=== PATIENT | female | born 1940 | race Caucasian/White ===

== ENCOUNTER 2022-04-27 12:17 | Emergency (ER) | payer MEDICARE, SELFPAY ==
[2022-04-27 12:18] VITALS: BP 118/88; PULSE 86; RESP 16; TEMP 36.4; O2SAT 97; BMI 20.5
[2022-04-27 12:52] VITALS: O2SAT 94
--- NOTE | 2022-04-27 13:26 | CT_ITS ---
STUDY: CT BRAIN WITHOUT CONTRAST REASON FOR EXAM: Female, 82 years old. Recent head injury due to a fall. Dementia. RADIATION DOSAGE (If Supplied By Facility): CTDIvol = ( 44.99 ) mGy, DLP = ( 812.98 ) mGycm TECHNIQUE: Transaxial CT imaging of the brain was performed without administration of intravenous contrast material. Individualized dose optimization techniques were used for this CT. COMPARISON: Comparison is made with prior examination dated 09/19/2013. FINDINGS: Normal soft tissue structures. Normal calvarium. There is mild cerebral atrophy with widening of the extra-axial spaces and ventricular dilatation. There are areas of decreased attenuation within the white matter tracts of the supratentorial brain, consistent with microvascular disease changes. There is evidence of a 6.7 mm lacuna in the right basal ganglion. Normal brainstem. Normal cerebellum. There is no intracranial hemorrhage. There are no findings of an acute ischemic infarction. Atherosclerotic calcification of the vertebral arteries and cavernous portions of the internal carotid arteries bilaterally. Normal visualized paranasal sinuses. CT/Brain/Head without Contrast IMPRESSION: Chronic involutional changes of the brain. Electronically Signed: Gael Gomez MD at 14:47 EST ,
--- NOTE | 2022-04-27 13:26 | CT_ITS ---
STUDY: CT CERVICAL SPINE WITHOUT CONTRAST REASON FOR EXAM: Female, 82 years old. Trauma, neck pain RADIATION DOSAGE (If Supplied By Facility): CTDIvol = ( 29 ) mGy, DLP = ( 1038.34 ) mGycm TECHNIQUE: High resolution transaxial imaging was performed without contrast material. Sagittal and coronal images were reconstructed. Individualized dose optimization techniques were used for this CT. COMPARISON: None FINDINGS: Normal craniovertebral junction. There are degenerative changes of the anterior atlantoaxial articulation. Normal odontoid process. Normal cervical lordosis. Normal vertebral bodies and posterior osseous elements. C2-3: Minimal anterior listhesis of C2 on C3 most likely secondary to the facet joint osteoarthritis and hypertrophy more prominent on the left side. C3-4: Mild degree of disc space narrowing. Facet joint osteoarthritis and hypertrophy more prominent on the left side. No significant stenosis is seen. C4-5: Moderate degree of disc space narrowing. Facet joint osteoarthritis and hypertrophy more prominent on the left side. Uncovertebral arthrosis. Moderate degree of bilateral neural foraminal stenosis. C5-6: Marked degree of disc space narrowing. Facet joint osteoarthritis. Uncovertebral arthrosis. Bilateral neural foraminal stenosis worse on the left side. C6-7: Marked degree of disc space narrowing. Spondylosis. Uncovertebral arthrosis. Mild degree of bilateral neural foraminal stenosis. C7-T1: Normal endplates. Normal disc height and morphology. Normal central canal and intervertebral neuroforamina. Atherosclerotic calcific plaques at the carotid bifurcations bilaterally. CT/Spine Cervical without Contras IMPRESSION: Multilevel degenerative changes, as described above. Electronically Signed: Gael Gomez MD at 14:50 EST ,
[2022-04-27] MEDS: Lidocaine 5% Patch 1 PATCH TOPICAL (13:36)
--- NOTE | 2022-04-27 14:38 | RAD_ITS ---
STUDY: X-RAY - UNILATERAL RIBS ( LEFT ) WITH CHEST REASON FOR EXAM: Female, 82 years old. Pain, fall TECHNIQUE - RIBS: 3 view(s) of the ribs. TECHNIQUE - CHEST: Single PA view of the chest. COMPARISON: Comparison is made with prior chest radiograph dated 09/05/2016. FINDINGS - RIBS: Normal visualized ribs without a demonstrated fracture. FINDINGS - CHEST: Hyperinflation. Scattered calcified granulomas. No acute infiltrate is seen. There is no demonstrated pleural abnormality. Normal size heart. Normal mediastinum and edwin. Normal visualized pulmonary arteries. There is atherosclerotic calcification of the aortic arch with tortuosity. There are diffuse degenerative changes of the visualized thoracic spine. Prior right rotator cuff surgery. There is no demonstrated abnormality of the visualized soft tissue structures of the upper abdomen. RAD/Ribs Uni Min 3V w/PA Chest IMPRESSION: RIBS: Normal x-ray examination of the ribs. CHEST: Hyperinflation. No focal abnormality is seen. Electronically Signed: Gael Gomez MD at 15:00 EST ,
--- NOTE | 2022-04-27 15:30 | EDS_ITS ---
HPI HPI - Fall History of Present Illness Chief Complaint: Fall Informant: patient and spouse/S.O. Limited: dementia Narrative Narrative: Patient is an 82-year-old female with history of dementia presenting with per sistent left anterior chest wall pain. Apparently of 4 days ago patient [place]. She landed on her front and laid there for approximately 30 minutes. Her found her and helped her up. Since then she has been complaining of chest wall pain. Patient had been taping her chest which has been helping however this morning she was not wearing the tape and seemed to have a lot of pain with inspiration. She states it is on her left side and feels deep to her breast. It sometimes radiates around to her left side of her back. Patient fell she states she did hit her head but she had no loss of consciousness. She is not on any oral anticoagulation. She does complain of some intermittent tingling of her bilateral hands but notes that she has a history of severe bilateral carpal tunnel. Patient takes tramadol 3 times a day as well as Tylenol twice a day at baseline. Patient is allergic to most of her opioids due to intolerances. She is also complaining of some mild bilateral neck pain. No other complaints or concerns at this time. feels that she is at her baseline and still feels that she is safe at home. He does not think she requires placement at this time. She is not had any progression or change in her behavior. [facility] Home Medications enalapril maleate 5 mg tablet 5 mg PO DAILY 09/19/13 [History Last Taken Unknown] metformin 500 mg tablet 500 mg PO TIDCM 09/19/13 [History Last Taken Unknown] niacin 500 mg tablet,extended release 24 hr 1,000 mg PO DAILY 09/19/13 [History Last Taken Unknown] tramadol 50 mg tablet 50 mg PO Q6H PRN PRN Pain 09/19/13 [History Last Taken Unknown] amlodipine 5 mg tablet 5 mg PO DAILY 09/05/16 [History Last Taken Unknown] aspirin 325 mg tablet 325 mg PO DAILY@0800 09/05/16 [History Last Taken Unknown] sitagliptin phosphate 100 mg tablet (Januvia) 100 mg PO DAILY 09/05/16 [History Last Taken Unknown] Allergy/AdvReac Type Severity Reaction Status Date / Time celecoxib [From Celebrex] AdvReac Nausea Verified 04/27/22 12:23 Opioids - Morphine Analogues AdvReac Other Verified 04/27/22 12:23 rofecoxib [From Vioxx] AdvReac Nausea Verified 04/27/22 12:23 [id number]-[id number] Reductase AdvReac Pain in Verified 04/27/22 12:23 Inhibitor joints [Gegryof-Nmj-Icz Reductase Inhibitor] Social History Smoking Status: Never smoker ROS ROS ED Constitutional Constitutional ED: Denies chills or fever(s) Eyes Eyes: Denies change in vision ENT ENT ED: Denies rhinorrhea Cardiovascular Cardiovascular: Reports chest pain Respiratory/Chest Respiratory/Chest: Denies cough or dyspnea Gastrointestinal Gastrointestinal: Denies nausea or vomiting Musculoskeletal Musculoskeletal: Reports myalgias and neck pain Integumentary Denies Abrasions or rash Neurologic Neurologic: Denies headache(s) or weakness Hematologic/Lymphatic Hematologic/Lymphatic: Denies easy bleeding or easy bruising EXAM Physical Exam Const Vital Signs: 04/27/22 12:18 04/27/22 12:52 04/27/22 15:42 Temperature 97.5 F L Temperature Source Temporal Pulse Rate 86 Respiratory Rate 16 16 Respiratory Effort Normal Non-Labored Respiratory Depth Normal Respiratory Pattern Normal Blood Pressure 118/88 H Blood Pressure Mean 98 Pulse Ox 97 94 Oxygen Delivery Method Room Air Room Air Positive well nourished and well developed General Appearance ED: well developed and NAD HEENT Reports normocephalic and TM's normal bilaterally atraumatic Eyes PERRL and EOMs intact bilaterally Neck full ROM Neck Narrative: No midline tenderness. No step-off sign. No significant tenderness of the paraspinal region. Chest Wall inspection of chest normal Chest Narrative: No chest wall crepitus. Patient does have tenderness palpation of the left anterior chest wall as well as the left sternal costal junction Resp normal respiratory effort and clear to auscultation bilaterally Resp Narrative: Increased pain with deep inspiration Auscultation: Negative for diminished lung sounds Cardio regular rate and regular rhythm GI non-tender and non-distended Back/Spine Cervical Spine: Negative for cervical spine tenderness Thoracic Spine / Upper Back: Negative for ROM limited or pain with ROM Lumbar Spine / Lower Back: Negative for lumbar spinal tenderness Neuro oriented x3, CN's II-XII intact bilaterally, moves all extremities, no focal motor deficits and no sensory deficits noted Neuro Narrative: Patient is at her baseline orientation Sensorium / Orientation: alert Psych mental status grossly normal and thought process normal Skin Skin Narrative: Approximately 3 cm x 5 cm area of healing ecchymosis to the left lateral lower back just above the buttock. No associated hematoma appreciated. Rashes: no rashes MDM MDM MDM Narrative Medical decision making narrative: Patient is evaluated for chest wall pain. Her vital signs are normal. Pain is highly reproducible and associated with an injury. I do not think this is a cardiac chest pain. Patient and spouse state they were only here because they are worried about a rib fracture. Because she did hit her head, has advanced age and is complained of neck pain will obtain a head CT and C-spine as well as a rib series. These are negative for any acute process. Rib series specifically does not show any rib fracture, pneumothorax or associated pulmonary contusion. This is interpreted independently by myself as well as radiology. Patient is given a Lidoderm patch in the ER and does seem more comfortable. Patient is already on tramadol and Tylenol at home and I do not think she requires oral pain medications. In addition she has a history of intolerance to Celebrex so refrain from starting her on NSAID therapy. Encouraged them to use Lidoderm patches for her pain. Counseled on the risk of secondary pneumonia associated with rib contusions and patient is given an incentive spirometer as well as instructions on how to use it. Patient and her verbalized agreement understanding with this plan. This time feels that patient does not require more help that he is able to give at home and I do not think a social work consult is indicated. Patient and encouraged to follow-up with primary care doctor. Given return precautions. Radiography Diagnostic Testing: Clinical Impression(s) from Imaging Studies Brain CT 04/27/22 13:26 IMPRESSION: Chronic involutional changes of the brain. Electronically Signed: Gael Gomez MD at 14:47 EST , Cervical Spine CT 04/27/22 13:26 IMPRESSION: Multilevel degenerative changes, as described above. Electronically Signed: Gael Gomez MD at 14:50 EST , Ribs w/Chest X-Ray 04/27/22 14:38 IMPRESSION: RIBS: Normal x-ray examination of the ribs. CHEST: Hyperinflation. No focal abnormality is seen. Electronically Signed: Gael Gomez MD at 15:00 EST , Discharge Plan Triage Chief Complaint: Fall ED Provider: Chani Elkins Dx/Rx/DC Orders Clinical Impression: Acute chest wall pain, Fall, Contusion of rib on left side Instructions: Using an Incentive Spirometer, ED Chest Wall Contusion, ED Bruise, Rib Prescriptions: No Action metformin 500 MG tablet 500 mg PO TIDCM Label Comments: diabetes enalapril maleate 5 MG tablet 5 mg PO DAILY Label Comments: Blood Pressure, Heart niacin 500 MG Tab.Er.24h 1,000 mg PO DAILY Label Comments: Vitamin tramadol 50 MG tablet 50 mg PO Q6H PRN PRN (Reason: Pain) Label Comments: pain medication aspirin 325 MG tablet 325 mg PO DAILY@0800 amlodipine 5 MG tablet 5 mg PO DAILY sitagliptin phosphate [Januvia] 100 MG tablet 100 mg PO DAILY Primary Care Provider: Raeann Parsons Referrals: Raeann Parsons MD [Primary Care Provider] - Activity Restrictions/Additional Instructions: Use [id number] Lidoderm patches (4%) daily as well as incentive spirometer every hour while awake to help prevent a secondary pneumonia. Disposition Disposition: Home, Self Care Discharge Date/Time: 04/27/22 15:43
[2022-04-27 15:42] VITALS: RESP 16
== END 2022-04-27 15:43 | disposition home or self-care (01) ==
PROVIDERS: Emergency Provider Emergency Medicine; PCP Internal Medicine; Visit Provider Emergency Medicine
DX: S20.212A Contusion of left front wall of thorax, initial encounter (principal); F03.90 Unspecified dementia, unspecified severity, without behavioral disturbance, psychotic disturbance, mood disturbance, and anxiety; R07.89 Other chest pain; W19.XXXA Unspecified fall, initial encounter
CPT/HCPCS: 70450; 71101; 72125; 99282

== ENCOUNTER 2023-10-16 01:00 | Emergency (ER) | payer MEDICARE, SELFPAY ==
[2023-10-16 01:00] VITALS: BP 181/73; PULSE 81; RESP 18; TEMP 36.7; O2SAT 99; BMI 22.1
--- NOTE | 2023-10-16 01:20 | CT_ITS ---
STUDY: CT CERVICAL SPINE WITHOUT CONTRAST REASON FOR EXAM: Female, 83 years old patient with neck injury after fall. RADIATION DOSAGE (If Supplied By Facility): CTDIvol = ( 12.46 ) mGy, DLP = ( 265.31 ) mGycm TECHNIQUE: High resolution transaxial imaging was performed without contrast material. Sagittal and coronal images were reconstructed. Individualized dose optimization techniques were used for this CT. COMPARISON: CT of cervical spine dated April 27, 2022. FINDINGS: Normal craniovertebral junction. There are degenerative changes of the anterior atlantoaxial articulation. Normal odontoid process. Normal cervical lordosis. The cervical and upper thoracic vertebral bodies have normal height and alignment. C2-3: Normal endplates. Normal disc height and morphology. Normal central canal. There is mild narrowing of the left intervertebral neuroforamen. There is moderately severe degenerative arthropathy of the left-sided facet joint C3-4: There is narrowing of the disk space. There is mild disk bulge and osteophyte complex. There is mild degenerative arthropathy of the facet joints. Bilateral neuroforamina are moderately narrowed. There is uncovertebral and facet joint hypertrophy. There is no appreciable acquired central canal stenosis. C4-5: There is narrowing of the disk space. There is mild disk bulge and osteophyte complex. There is mild degenerative arthropathy of the facet joints. Bilateral neuroforamina are severely narrowed with uncovertebral and facet joint hypertrophy. There is no appreciable acquired central canal stenosis. C5-6: There is narrowing of the disk space. There is mild disk bulge and osteophyte complex. There is degenerative arthropathy of the uncovertebral joints. Bilateral neuroforamina are moderately narrowed. There is no appreciable acquired central canal stenosis. C6-7: There is narrowing of the disk space. There is mild disk bulge and osteophyte complex. There is degenerative arthropathy of the uncovertebral joints. Bilateral neuroforamina are moderately narrowed. There is no appreciable acquired central canal stenosis. C7-T1: Normal endplates. Normal disc height and morphology. Normal central canal and intervertebral neuroforamina. The thyroid appears atrophic. There is atherosclerotic calcification of the carotid bulbs. Lung apices appear to be clear. CT/Spine Cervical without Contras IMPRESSION: 1. No CT evidence of acute compression or displaced fracture. 2. Moderately severe multilevel degenerative changes of cervical spine as described. Electronically Signed: Nadia Blair MD at 3:06 EDT ,
--- NOTE | 2023-10-16 01:20 | RAD_ITS ---
STUDY: X-RAY - LEFT RADIUS AND ULNA REASON FOR EXAM: Female, 83 years old patient with forearm pain. TECHNIQUE: AP and lateral view(s) of the forearm. COMPARISON: None. FINDINGS: There is no demonstrated soft tissue swelling. There is diffuse demineralization of the osseous structures. Normal visualized radius. Normal visualized ulna. There is no demonstrated acute fracture. There is arthrosis of the visualized elbow articulations. RAD/Forearm 2 Views IMPRESSION: No definite evidence for acute fracture or dislocation. Electronically Signed: Nadia Blair MD at 3:07 EDT ,
--- NOTE | 2023-10-16 01:20 | CT_ITS ---
STUDY: CT BRAIN WITHOUT CONTRAST REASON FOR EXAM: Female, 83 years old patient with closed head injury after fall. RADIATION DOSAGE (If Supplied By Facility): CTDIvol = ( 44.99 ) mGy, DLP = ( 863.60 ) mGycm TECHNIQUE: Transaxial CT imaging of the brain was performed without administration of intravenous contrast material. Multiplanar reformations are submitted for interpretation. Individualized dose optimization techniques were used for this CT. COMPARISON: CT of the head dated April 27, 2022. FINDINGS: Normal soft tissue structures. There are bilateral ocular lenticular implants. Normal calvarium. There is moderate cerebral atrophy with widening of the extra-axial spaces and ventricular dilatation. There are areas of decreased attenuation within the white matter tracts of the supratentorial brain, consistent with microvascular disease changes. Normal basal ganglia and thalami. Normal brainstem. There is mild cerebellar atrophy. There is no intracranial hemorrhage. Appears be a small area of encephalomalacia within the left parietal occipital lobe possibly secondary to old infarcts. There is atherosclerotic calcification of the intracranial arteries. Normal visualized paranasal sinuses. CT/Brain/Head without Contrast IMPRESSION: 1. Chronic involutional changes of the brain. 2. No CT evidence of acute intracranial hemorrhage. Electronically Signed: Nadia Blair MD at 2:54 EDT ,
--- NOTE | 2023-10-16 01:20 | RAD_ITS ---
STUDY: X-RAY - UNILATERAL RIBS ( LEFT ) WITH CHEST REASON FOR EXAM: Female, 83 years old patient with chest pain. TECHNIQUE - RIBS: 4 view(s) of the ribs. TECHNIQUE - CHEST: Single PA view of the chest. COMPARISON: Radiographs of the chest and ribs dated April 27, 2022. FINDINGS - RIBS: There is demineralization of the osseous structures which diminishes the diagnostic sensitivity of this examination. There appear to be acute displaced fractures of the lateral left seventh and eighth ribs. FINDINGS - CHEST: There are prominent bronchovascular markings in both lungs. The lungs are expanded. There is no demonstrated pleural abnormality. Normal size heart. Normal mediastinum and edwin. Normal visualized pulmonary arteries. There is atherosclerotic calcification of the aortic arch with tortuosity. There is demineralization of the osseous structures. There are postoperative changes in the right shoulder. There is no demonstrated abnormality of the visualized soft tissue structures of the upper abdomen. RAD/Ribs Uni Min 3V w/PA Chest IMPRESSION: RIBS: Osteopenia with acute displaced rib fractures, as described. CHEST: No radiographic evidence of acute cardiopulmonary disease. Electronically Signed: Nadia Blair MD at 3:12 EDT ,
--- NOTE | 2023-10-16 01:20 | RAD_ITS ---
STUDY: X-RAY - THORACIC SPINE REASON FOR EXAM: Female, 83 years old patient with back pain. TECHNIQUE: 3 view(s) of the thoracic spine were obtained. COMPARISON: Prior comparison studies are not available for review at this time. FINDINGS: There is an increase in the normal thoracic kyphosis. There is no substantial scoliosis. There is demineralization of the thoracic spine with endplate spondylosis. There is multilevel disc space narrowing of the thoracic spine. There is extensive atherosclerotic calcification of the thoracic and abdominal aorta. RAD/Thoracic Spine 3 Views IMPRESSION: 1. No definite evidence for acute compression fracture. 2. Multilevel degenerative changes, as described. Electronically Signed: Nadia Blair MD at 3:14 EDT ,
--- NOTE | 2023-10-16 01:20 | RAD_ITS ---
STUDY: X-RAY - LEFT HUMERUS REASON FOR EXAM: Female, 83 years old patient with left-sided arm pain. TECHNIQUE: 2 view(s) of the humerus. COMPARISON: None. FINDINGS: There is diffuse demineralization of the humerus. There is no demonstrated fracture or osseous destructive process. There is no demonstrated soft tissue abnormality. RAD/Humerus min 2 Views IMPRESSION: No obvious acute fracture or dislocation. Electronically Signed: Nadia Blair MD at 2:49 EDT ,
--- NOTE | 2023-10-16 01:20 | RAD_ITS ---
STUDY: X-RAY - PELVIS REASON FOR EXAM: Female, 83 years old patient with pelvic injury after fall. TECHNIQUE: One view of the pelvis was obtained. COMPARISON: None. FINDINGS: There is a non-specific bowel gas pattern. Normal visualized soft tissue structures. The sacrum and iliac wings are obscured by bowel gas and/or stool. Normal visualized bilateral superior and inferior pubic rami. Normal pubic symphysis. Normal ischial tuberosities. Normal visualized right femoral head. Normal right acetabulum. Normal right hip joint. Normal visualized left femoral head. Normal left acetabulum. Normal left hip joint. RAD/Pelvis 1 or 2 Views IMPRESSION: No obvious acute displaced fracture or dislocation. Electronically Signed: Nadia Blair MD at 2:47 EDT ,
[2023-10-16] MEDS: Ondansetron 4 MG/2 ML Vial IV (01:40)
[2023-10-16] MEDS: HYDROmorphone 0.5 MG/0.5 ML SYRINGE IV ×2 (01:40→03:02)
[2023-10-16 03:00] VITALS: BP 145/79; PULSE 98; RESP 18; O2SAT 98
--- NOTE | 2023-10-16 03:33 | EDS_ITS ---
HPI History of Present Illness Chief Complaint: Fall Informant: patient and spouse/S.O. Narrative Narrative: Patient is a 83-year-old female with past medical history of hypertension and type 2 diabetes as well as chronic pain who takes Ultram daily. 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 She states that today she fell once around 3 in the afternoon and also once around evening time. She states both times the fall was mechanical in nature and she denies palpitations chest pain lightheadedness or dizziness prior to the event. She denies striking her head any loss consciousness or history of bleeding disor ashley. She states that this evening she cannot sleep secondary to the pain despite taking her home medication and with concern for underlying trauma from the fall she comes in for evaluation [facility] Medical History (Updated 10/16/23 @ 06:[address] Barry Garcia, DO) Heart murmur Hypercholesteremia Tuberculosis Home Medications ?Medication ?Instructions ?Recorded ?Last Taken ?Type enalapril maleate 5 mg tablet 5 mg PO DAILY 09/19/13 Unknown History metformin 500 mg tablet 500 mg PO TIDCM 09/19/13 Unknown History niacin 500 mg tablet,extended 1,000 mg PO DAILY 09/19/13 Unknown History release 24 hr tramadol 50 mg tablet 50 mg PO Q6H PRN PRN Pain 09/19/13 Unknown History amlodipine 5 mg tablet 5 mg PO DAILY 09/05/16 Unknown History aspirin 325 mg tablet 325 mg PO DAILY@0800 09/05/16 Unknown History sitagliptin phosphate 100 mg 100 mg PO DAILY 09/05/16 Unknown History tablet (Januvia) lidocaine 4 % topical patch 1 patch topical BID PRN pain #30 ea 10/16/23 Unknown Rx (Lidocaine Pain Relief) ondansetron 4 mg disintegrating 4 mg PO TID PRN nausea and 10/16/23 Unknown Rx tablet vomiting #21 tabs oxycodone-acetaminophen 5 mg-325 1 tab PO Q6H PRN pain 3 days #12 10/16/23 Unknown Rx mg tablet (Percocet) tabs Allergy/AdvReac Type Severity Reaction Status Date / Time celecoxib (From Celebrex) AdvReac Nausea Verified 10/16/23 01:07 Opioids - Morphine Analogues AdvReac Nausea Verified 10/16/23 01:07 rofecoxib (From Vioxx) AdvReac Nausea Verified 10/16/23 01:07 Flpilgn-ZCE-QaT Reductase AdvReac Pain in Verified 10/16/23 01:07 Inhibitor (Msrmdvn-Ubg-Pap joints Reductase Inhibitor) Surgical History (Updated 10/16/23 @ 01:10 by Lulú Horta) History of cholecystectomy History of appendectomy Social History Smoking Status: Never smoker ROS ROS ED Constitutional Constitutional ED: Denies chills or fever(s) Eyes Eyes: Denies change in vision ENT ENT ED: Denies sore throat Cardiovascular Cardiovascular: Denies chest pain, palpitations or racing heartbeat Respiratory/Chest Respiratory/Chest: Denies cough or dyspnea Gastrointestinal Gastrointestinal: Denies abdominal pain, diarrhea, nausea or vomiting Genitourinary Genitourinary ED: Denies dysuria Musculoskeletal Musculoskeletal: Reports back pain and other Details: Positive left shoulder left elbow left wrist pain as well as left chest wall pain ; Denies neck pain Integumentary Denies Abrasions or rash Neurologic Neurologic: Denies headache(s), paresthesias or weakness Hematologic/Lymphatic Hematologic/Lymphatic: Denies easy bleeding or easy bruising EXAM Physical Exam Const Vital Signs: 10/16/23 01:00 10/16/23 01:11 10/16/23 03:00 Temperature 98.1 F Temperature Source Oral Pulse Rate 81 98 Respiratory Rate 18 18 Respiratory Effort Normal Blood Pressure 181/73 H 145/79 H Blood Pressure Mean 109 101 Pulse Ox 99 98 Oxygen Delivery Method Room Air Room Air 10/16/23 04:00 Temperature 97.6 F L Temperature Source Pulse Rate 98 Respiratory Rate 18 Respiratory Effort Blood Pressure 130/65 H Blood Pressure Mean 86 Pulse Ox 98 Oxygen Delivery Method Positive well nourished and well developed General Appearance ED: well developed; Negative for pallor HEENT HEENT Narrative: Normocephalic atraumatic No signs of depressed or basilar skull fracture Eyes PERRL and EOMs intact bilaterally Neck supple Neck Narrative: No bony deformity or step-off of the cervical spine Chest Wall Chest Narrative: There is reproducible left anterior lateral chest wall pain on palpation rib regions 6-10 without bony deformity or crepitance Resp normal respiratory effort and clear to auscultation bilaterally Cardio regular rate and regular rhythm GI non-tender, non-distended and no masses GI Narrative: Abdomen is soft nontender nondistended with hypoactive bowel sounds. No voluntary guarding or rigidity or pulsatile mass Auscultation: hypoactive bowel sounds Palpation: soft Back/Spine Back/Spine Narrative: No bony deformity or step-off of the thoracic or lumbar spine but there is upper midline thoracic pain with palpation Extremity Extremity Narrative: Pelvis is stable there is no shortening or external rotation of either lower extremity Left upper extremity is neurovascular intact. There is no obvious bony deformity or joint effusion noted. However patient does have diffuse pain on palpation extending from the shoulder down to the wrist. No anatomical snuffbox pain. Neuro oriented x3, CN's II-XII intact bilaterally and no sensory deficits noted Sensorium / Orientation: alert Psych mental status grossly normal Skin no rashes or lesions noted Skin Narrative: No abrasions or ecchymosis noted General Skin Exam: Negative for jaundice or pallor MDM MDM MDM Narrative Medical decision making narrative: Patient arrived to the ER hypertensive but otherwise with stable vitals. She reported to mechanical fall throughout the day. She is not on a blood thinner nor does she have a history of bleeding disorder but based on her advanced age and fall there is concern for traumatic subdural versus subarachnoid hemorrhage versus compression fracture or spondylolisthesis of the cervical spine. With pain in the left arm there is concern for fracture versus dislocation and with pain in the left chest wall there is concern for rib fracture versus contusion versus pneumothorax. As patient reported the fall was mechanical I did not feel the need for cardiac or syncope workup. CTs of the head and cervical spine were obtained which revealed no acute traumatic finding. X-rays of the left upper extremity as well as pelvis and left ribs were obtained as these were the areas painful to palpation and the patient reported feeling at home. Only abnormality other than age-related arthritic changes with a left seventh and eighth rib fracture without pneumothorax or hemothorax. The patient's pain was improved in the ER and she was able to ambulate with a steady gait. Therefore at this time as she is able to ambulate does not have a pneumothorax or signs of underlying traumatic brain injury there is no need to keep her in the hospital and she is otherwise safe for discharge. History & Record Review Discussion w/independent historian: Patient and Significant other Radiography Diagnostic Testing: Clinical Impression(s) from Imaging Studies Brain CT 10/16/23 01:20 IMPRESSION: 1. Chronic involutional changes of the brain. 2. No CT evidence of acute intracranial hemorrhage. Electronically Signed: Nadia Blair MD at 2:54 EDT , Cervical Spine CT 10/16/23 01:20 IMPRESSION: 1. No CT evidence of acute compression or displaced fracture. 2. Moderately severe multilevel degenerative changes of cervical spine as described. Electronically Signed: Nadia Blair MD at 3:06 EDT , Forearm X-Ray 10/16/23 01:20 IMPRESSION: No definite evidence for acute fracture or dislocation. Electronically Signed: Nadia Blair MD at 3:07 EDT , Humerus X-Ray 10/16/23 01:20 IMPRESSION: No obvious acute fracture or dislocation. Electronically Signed: Nadia Blair MD at 2:49 EDT , Pelvis X-Ray 10/16/23 01:20 IMPRESSION: No obvious acute displaced fracture or dislocation. Electronically Signed: Nadia Blair MD at 2:47 EDT , Ribs w/Chest X-Ray 10/16/23 01:20 IMPRESSION: RIBS: Osteopenia with acute displaced rib fractures, as described. CHEST: No radiographic evidence of acute cardiopulmonary disease. Electronically Signed: Nadia Blair MD at 3:12 EDT , Thoracic Spine X-Ray 10/16/23 01:20 IMPRESSION: 1. No definite evidence for acute compression fracture. 2. Multilevel degenerative changes, as described. Electronically Signed: Nadia Blair MD at 3:14 EDT , X-ray of the pelvis as interpreted by the emergency medicine physician reveals no acute fracture or dislocation X-ray of the left humerus left forearm and left wrist as interpreted by the emergency medicine physician reveals no acute fracture dislocation or joint effusion X-ray of the thoracic spine as interpreted by the emergency medicine physician reveals no compression fracture or spondylolisthesis Left rib x-ray with 1 view chest shows a left seventh and eighth rib fracture without pneumothorax or hemothorax Discharge Plan Triage Chief Complaint: Fall ED Provider: Barry Garcia Dx/Rx/DC Orders Clinical Impression: Multiple rib fractures, Hypertension, Type II diabetes mellitus, Accidental fall Instructions: ED Rib Fracture Prescriptions: New ondansetron 4 mg tablet,disintegrating 4 mg PO TID PRN (Reason: nausea and vomiting) Qty: 21 0RF oxycodone-acetaminophen [Percocet] 5-325 mg tablet 1 tab PO Q6H PRN (Reason: pain) 3 Days Qty: 12 0RF lidocaine [Lidocaine Pain Relief] 4 % adhesive patch,medicated 1 patch topical BID PRN (Reason: pain) Qty: 30 0RF No Action metformin 500 MG tablet 500 mg PO TIDCM Patient Comments: diabetes enalapril maleate 5 MG tablet 5 mg PO DAILY Patient Comments: Blood Pressure, Heart niacin 500 MG tablet extended release 24 hr 1,000 mg PO DAILY Patient Comments: Vitamin tramadol 50 MG tablet 50 mg PO Q6H PRN PRN (Reason: Pain) Patient Comments: pain medication aspirin 325 MG tablet 325 mg PO DAILY@0800 amlodipine 5 MG tablet 5 mg PO DAILY sitagliptin phosphate [Januvia] 100 MG tablet 100 mg PO DAILY Primary Care Provider: Raeann Parsons Referrals: Raeann Parsons MD [Primary Care Provider] - Activity Restrictions/Additional Instructions: Your images showed that you broke your left seventh and eighth rib. Make sure you are using your incentive spirometer once every hour while awake to take deep breaths and prevent pneumonia. Stop taking the Ultram/tramadol and begin taking the Percocet for improved pain control. You may also use topical creams or the lidocaine patch to try and reduce pain. Return to the ER should you have any further concerns or worsening of symptoms Print Language: Kinyarwanda Disposition Disposition: Home, Self Care Discharge Date/Time: 10/16/23 04:14
[2023-10-16 04:00] VITALS: BP 130/65; PULSE 98; RESP 18; TEMP 36.4; O2SAT 98
--- NOTE | 2023-10-16 04:14 | ED.RN ---
I.S. ROVIDED TO PATIENT. PT AND SPOUSE EDUCATED RE: PURPOSE AND RECOMMENDED FREQUENCY OF USE.
== END 2023-10-16 04:14 | disposition home or self-care (01) ==
PROVIDERS: Emergency Provider Emergency Medicine; PCP Internal Medicine; Visit Provider Emergency Medicine
DX: S22.42XA Multiple fractures of ribs, left side, initial encounter for closed fracture (principal); E11.9 Type 2 diabetes mellitus without complications; M25.512 Pain in left shoulder; M25.522 Pain in left elbow; M25.532 Pain in left wrist; W19.XXXA Unspecified fall, initial encounter; I10 Essential (primary) hypertension; E78.00 Pure hypercholesterolemia, unspecified; G89.29 Other chronic pain; Z79.891 Long term (current) use of opiate analgesic; Z79.82 Long term (current) use of aspirin; Z79.84 Long term (current) use of oral hypoglycemic drugs; Z79.899 Other long term (current) drug therapy
CPT/HCPCS: 70450; 71101; 72072; 72125; 72170; 73060; 73090; 96374; 96375; 96376; 99282; A4216; J2405

== ENCOUNTER 2024-01-01 10:14 | Emergency (ER) | payer MEDICARE, SELFPAY ==
[2024-01-01 10:14] VITALS: BP 130/67; PULSE 81; RESP 14; TEMP 36.7; O2SAT 100
--- NOTE | 2024-01-01 10:48 | EDS_ITS ---
HPI History of Present Illness Chief Complaint: Head Injury Informant: patient, spouse/S.O. and family Onset/Context/Timing Onset: Today Mechanism/Context: Fall and Trip Quality of Pain: Dull and Aching Location: Right lateral eyebrow and periorbital area Worsened by: Turning her head Relieved by: Tylenol, tramadol Associated Symptoms Associated Symptoms: Positive for Inability to ambulate (Patient was unable to ambulate initially but was able to ambulate after she was helped up) and Loss of consciousness (Patient is unsure if she lost consciousness but does not think so.); Negative for Parasthesias, Weakness or Loss of function Narrative Narrative: Patient presents after a fall that occurred this morning. Patient walked out onto her front porch when she fell and hit her head on a porch swing. Patient is unsure if there was any loss of consciousness. Patient states she had difficulty getting up after the fall. Patient states her pain is worse when she turns her head. Patient states he took Tylenol and tramadol at home which h elped the pain the patient states her last tetanus was within 5 years. Patient describes her pain as dull and aching. Patient states it is over the right periorbital area. applied Band-Aid dressing prior to arrival. Tetanus Immunization: <5 years [facility] Medical History Heart murmur Hypercholesteremia Tuberculosis Home Medications ?Medication ?Instructions ?Recorded ?Last Taken ?Type enalapril maleate 5 mg tablet 5 mg PO DAILY 09/19/13 Unknown History metformin 500 mg tablet 500 mg PO TIDCM 09/19/13 Unknown History niacin 500 mg tablet,extended 1,000 mg PO DAILY 09/19/13 Unknown History release 24 hr tramadol 50 mg tablet 50 mg PO Q6H PRN PRN Pain 09/19/13 Unknown History amlodipine 5 mg tablet 5 mg PO DAILY 09/05/16 Unknown History aspirin 325 mg tablet 325 mg PO DAILY@0800 09/05/16 Unknown History sitagliptin phosphate 100 mg 100 mg PO DAILY 09/05/16 Unknown History tablet (Januvia) lidocaine 4 % topical patch 1 patch topical BID PRN pain #30 ea 10/16/23 Unknown Rx (Lidocaine Pain Relief) ondansetron 4 mg disintegrating 4 mg PO TID PRN nausea and 10/16/23 Unknown Rx tablet vomiting #21 tabs oxycodone-acetaminophen 5 mg-325 1 tab PO Q6H PRN pain 3 days #12 10/16/23 Unknown Rx mg tablet (Percocet) tabs Allergy/AdvReac Type Severity Reaction Status Date / Time celecoxib (From Celebrex) AdvReac Nausea Verified 01/01/24 10:15 Opioids - Morphine Analogues AdvReac Nausea Verified 01/01/24 10:15 rofecoxib (From Vioxx) AdvReac Nausea Verified 01/01/24 10:15 Hkhyvnq-XZR-JuT Reductase AdvReac Pain in Verified 01/01/24 10:15 Inhibitor (Aqmrdkp-Slx-Ieb joints Reductase Inhibitor) Surgical History History of cholecystectomy History of appendectomy Social History Smoking Status: Never smoker ROS ROS ED Constitutional Constitutional ED: Denies chills or fever(s) Eyes Eyes: Reports blurry vision ENT ENT ED: Denies rhinorrhea or sore throat Cardiovascular Cardiovascular: Denies chest pain or palpitations Respiratory/Chest Respiratory/Chest: Denies cough or dyspnea Gastrointestinal Gastrointestinal: Denies nausea or vomiting Genitourinary Genitourinary ED: Denies dysuria or hematuria Musculoskeletal Musculoskeletal: Denies back pain or neck pain Integumentary Denies abscess or rash Neurologic Neurologic: Reports headache(s); Denies weakness Allergic/Immunologic Allergic/Immunologic ED: Denies mouth swelling or urticaria EXAM Physical Exam Const Vital Signs: 01/01/24 10:14 01/01/24 11:12 01/01/24 12:14 Temperature 98.1 F 98.9 F Temperature Source Temporal Temporal Pulse Rate 81 64 Respiratory Rate 14 14 Respiratory Effort Normal Non-Labored Respiratory Depth Normal Blood Pressure 130/67 H 138/78 H Blood Pressure Mean 88 98 Pulse Ox 100 98 Oxygen Delivery Method Room Air Room Air Positive well nourished and well developed General Appearance ED: well developed HEENT HEENT Narrative: There is a 2.2 cm full-thickness linear laceration of the lateral aspect of the right eyebrow. There is moderate gapping of the wound margins. There is mild bleeding. There are no foreign bodies noted. Eyes PERRL and EOMs intact bilaterally Neck full ROM Resp normal respiratory effort and clear to auscultation bilaterally Cardio regular rhythm Rate: regular rate GI non-tender and non-distended Palpation: soft Neuro CN's II-XII intact bilaterally, moves all extremities, no focal motor deficits and no sensory deficits noted [place] Coma Scale: document GCS findings Spontaneous Obeys Commands Oriented 15 Sensorium / Orientation: alert Motor Exam: strength 5/5 throughout Psych mental status grossly normal PROC Procedures Lacerations Right eyebrow: Length: 2.2 cm Depth: Sub Q Shape: Linear Prep: Sterile Conditions and Chlorhexadine Laceration repair: Irrigated, Lidocaine and Local Number of Sutures/[place]: 3 Suture Information: Ethilon, Simple and 5-0 MDM MDM MDM Narrative Medical decision making narrative: Differential diagnosis includes intracranial bleeding, orbital fracture, contusion, and laceration. CT scan of the brain will be obtained to assess for intracranial bleeding and orbital fracture. Radiography Diagnostic Testing: Clinical Impression(s) from Imaging Studies Brain CT 01/01/24 10:56 IMPRESSION: Chronic involutional changes of the brain. Air-fluid level seen in the right maxillary sinus. Electronically Signed: Gael Gomez MD at 12:03 EDT , CT scan of the brain was obtained. There is no acute intracranial abnormality. There are chronic involutional changes noted. There is an air-fluid level in the right maxillary sinus. This was interpreted by the radiologist and was also independently reviewed by myself. Treatment and Re-Evaluation Narrative: LET gel was applied to the wound. The wound was cleaned and irrigated with copious amounts of normal saline. The wound was anesthetized with 1% plain lidocaine locally. The wound was closed with 3 simple interrupted #5-0 nylon sutures under sterile technique. Patient tolerated the procedure well. Bacitracin dressing was applied. Patient was instructed to follow-up with her primary care physician in 5 to 7 days for wound recheck and suture removal. Patient was instructed to return if worse in any way. Patient and family understood and were agreeable with plan. All questions were answered. Discharge Plan Triage Chief Complaint: Head Injury ED Provider: Schwiger,Herb Dx/Rx/DC Orders Clinical Impression: Fall, Closed head injury, Laceration of right eyebrow Instructions: ED Head Injury (Adult), ED FACIAL LACERATION Suture Tape, ED Lac eration Minimize Scars Prescriptions: No Action metformin 500 MG tablet 500 mg PO TIDCM Patient Comments: diabetes enalapril maleate 5 MG tablet 5 mg PO DAILY Patient Comments: Blood Pressure, Heart niacin 500 MG tablet extended release 24 hr 1,000 mg PO DAILY Patient Comments: Vitamin tramadol 50 MG tablet 50 mg PO Q6H PRN PRN (Reason: Pain) Patient Comments: pain medication aspirin 325 MG tablet 325 mg PO DAILY@0800 amlodipine 5 MG tablet 5 mg PO DAILY sitagliptin phosphate [Januvia] 100 MG tablet 100 mg PO DAILY ondansetron 4 mg tablet,disintegrating 4 mg PO TID PRN (Reason: nausea and vomiting) Qty: 21 0RF oxycodone-acetaminophen [Percocet] 5-325 mg tablet 1 tab PO Q6H PRN (Reason: pain) 3 Days Qty: 12 0RF lidocaine [Lidocaine Pain Relief] 4 % adhesive patch,medicated 1 patch topical BID PRN (Reason: pain) Qty: 30 0RF Primary Care Provider: Carlos Vanegas Referrals: Carlos Vanegas MD [Primary Care Provider] - 5 Days for suture removal Raeann Parsons MD [Med Staff - Char Filter Tank Tender] - Print Language: Persian Disposition Disposition: Home, Self Care
--- NOTE | 2024-01-01 10:56 | CT_ITS ---
STUDY: CT BRAIN WITHOUT CONTRAST REASON FOR EXAM: Female, 83 years old. Injury/Pain RADIATION DOSAGE (If Supplied By Facility): CTDIvol = ( 44.99 ) mGy, DLP = ( 829.85 ) mGycm TECHNIQUE: Transaxial CT imaging of the brain was performed without administration of intravenous contrast material. Individualized dose optimization techniques were used for this CT. COMPARISON: Comparison is made with prior study dated October 16, 2023. FINDINGS: Normal soft tissue structures. Normal calvarium. There is moderate cerebral atrophy with widening of the extra-axial spaces and ventricular dilatation. There are areas of decreased attenuation within the white matter tracts of the supratentorial brain, consistent with microvascular disease changes. 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 Normal brainstem. There is mild cerebellar atrophy. There is no intracranial hemorrhage. There are no findings of an acute ischemic infarction. An air-fluid level is seen in the right maxillary sinus. CT/Brain/Head without Contrast IMPRESSION: Chronic involutional changes of the brain. Air-fluid level seen in the right maxillary sinus. Electronically Signed: Gael Gomez MD at 12:03 EDT ,
[2024-01-01 11:02] VITALS: BMI 21.4
[2024-01-01] MEDS: Lidocaine/Epi/Tetracaine 50 ML 1 APPLIC TOPICAL (11:55)
[2024-01-01 12:14] VITALS: BP 138/78; PULSE 64; RESP 14; TEMP 37.2; O2SAT 98
[2024-01-01] MEDS: Lidocaine 1% (20 ml mdv) 20 ML Vial INFILT (13:25)
[2024-01-01 13:26] VITALS: BP 151/64; PULSE 73; RESP 18; TEMP 36.9; O2SAT 97
== END 2024-01-01 13:41 | disposition home or self-care (01) ==
PROVIDERS: Emergency Provider Emergency Medicine; PCP Family Medicine; Visit Provider Emergency Medicine
DX: S01.111A Laceration without foreign body of right eyelid and periocular area, initial encounter (principal); W01.198A Fall on same level from slipping, tripping and stumbling with subsequent striking against other object, initial encounter; Y93.01 Activity, walking, marching and hiking; Y92.008 Other place in unspecified non-institutional (private) residence as the place of occurrence of the external cause; E78.00 Pure hypercholesterolemia, unspecified; R26.2 Difficulty in walking, not elsewhere classified; Z79.82 Long term (current) use of aspirin; Z79.899 Other long term (current) drug therapy
CPT/HCPCS: 12011; 70450; 99283

== ENCOUNTER → 2024-02-15 | Outpatient (REF) | payer MEDICARE, SELFPAY ==
[2024-02-15 07:49] LABS: Hematocrit 37.7 % (37-47); Mean Corp Hgb Conc 31.8 g/dL (32-36); Mean Corpuscular Hgb 29.6 pg (27.0-32.0); Mean Corpuscular Volume 92.9 fL (81-99); Mean Platelet Vol. 10.3 fl (6.2-12.0); Platelet Count 261 K/mm3 (150-450); RBC Distribution Width CV 12.2 % (11.6-14.6); RBC Distribution Width SD 41.4 fl (35.1-43.9); Red Blood Count 4.06 M/mm3 (4.2-5.4); White Blood Count 7.4 K/mm3 (4.4-11.0)
[2024-02-15 08:06] LABS: Anion Gap 5 (5-15); BUN 21 mg/dL (7-18); BUN/Creat Ratio 27.1 RATIO (10-20); Chloride 106 mmol/L (98-107); Cholesterol 261 mg/dL (200); Creatinine, Serum 0.78 mg/dL (0.55-1.02); EST Glomerular Filtration Rate 75 mL/min (>60); Est Glom Filt Rate - Afr Amer 91 mL/min (>60); Glucose 197 mg/dL (74-106); High Density Lipoprotein 42 mg/dL; Magnesium 1.5 mg/dL (1.6-2.6); Potassium 4.6 mmol/L (3.5-5.1); Sodium Level 138 mmol/L (136-145); Thyroid Stim Hormone (TSH) 0.476 uIU/mL (0.358-3.740); Triglycerides 212 mg/dL; Very Low Density Lipoprotein 42 mg/dL (5-40)
[2024-02-15 08:24] LABS: Hemoglobin A1c 9.4 % (3.8-5.6)
[2024-02-15 08:28] LABS: Vitamin D,25 Hydroxy 39.4 ng/mL
== END ==
LOC: OLS.ACW400 05:00
PROVIDERS: PCP Family Medicine; Visit Provider Family Medicine
DX: F01.50 Vascular dementia, unspecified severity, without behavioral disturbance, psychotic disturbance, mood disturbance, and anxiety (principal)
CPT/HCPCS: 36415; 80048; 80061; 82306; 83036; 83735; 84443; 85027

== ENCOUNTER → 2024-03-05 | Outpatient (REF) | payer MEDICARE, SELFPAY ==
[2024-03-05 08:37] LABS: Mucous, Urine 0 SEEN /hpf (<or=2+)
[2024-03-05 09:07] LABS: Color, Urine Yellow (Yellow); Glucose, Dipstick Normal (Normal); Ketone-Dipstick 5 mg/dl (Negative); Leukocyte Esterase-Dipstick 100 /ul (Negative); Nitrite-Dipstick Positive (Negative); Occult Blood-Urine 10 /ul (Negative); Protein-Dipstick 15 mg/dl (Negative); Urine Bilirubin Dipstick Negative (Negative); Urine Clarity Sl. Cloudy (Clear); Urine Urobilinogen Normal (Normal)
[2024-03-05 09:21] LABS: Bacteria 2+ /hpf (None Seen); Red Blood Cells-Urine 0-5 SEEN /hpf (0-5); Squamous Epithelial Cells - UA 0-5 SEEN /hpf (5-10); White Blood Cells 5-10 SEEN /hpf (0-5)
[2024-03-05 09:22] LABS: Calcium Oxalate Crystals Ur RARE /hpf (<or=2+)
== END ==
LOC: OLS.ACW400 08:36
PROVIDERS: PCP Family Medicine; Referring Provider Family Medicine; Visit Provider Family Medicine
DX: R41.82 Altered mental status, unspecified (principal)
CPT/HCPCS: 81001; 87077; 87086; 87088; 87186

== ENCOUNTER → 2024-05-12 05:00 | Outpatient (REF) | payer MEDICARE, SELFPAY ==
[2024-05-12 09:21] LABS: Hematocrit 35.9 % (37-47); Hemoglobin 11.5 g/dL (12.0-15.0); Mean Corpuscular Hgb 29.4 pg (27.0-32.0); Mean Corpuscular Volume 91.8 fL (81-99); Mean Platelet Vol. 10.7 fl (6.2-12.0); Platelet Count 254 K/mm3 (150-450); RBC Distribution Width CV 12.7 % (11.6-14.6); RBC Distribution Width SD 42.3 fl (35.1-43.9); Red Blood Count 3.91 M/mm3 (4.2-5.4); White Blood Count 7.5 K/mm3 (4.4-11.0)
[2024-05-12 09:45] LABS: ALB/GLOB Ratio 0.8 RATIO (0.9-2.4); AST(SGOT) 12 U/L (15-37); Alanine Aminotransfer ALT/SGPT 9 U/L (13-56); Albumin, Serum 3.2 g/dL (3.2-5.0); Alkaline Phosphatase 60 U/L (45-117); Anion Gap 8 (5-15); BUN 13 mg/dL (7-18); BUN/Creat Ratio 17.6 RATIO (10-20); Calcium,Total 9.3 mg/dL (8.5-10.1); Chloride 106 mmol/L (98-107); Cholesterol 194 mg/dL (200); Creatinine, Serum 0.74 mg/dL (0.55-1.02); EST Glomerular Filtration Rate 80 mL/min (>60); Est Glom Filt Rate - Afr Amer 96 mL/min (>60); Globulin 3.8 g/dL (2.2-4.2); Glucose 125 mg/dL (74-106); High Density Lipoprotein 36 mg/dL; Potassium 4.1 mmol/L (3.5-5.1); Sodium Level 140 mmol/L (136-145); Thyroid Stim Hormone (TSH) 0.737 uIU/mL (0.358-3.740); Triglycerides 191 mg/dL; Very Low Density Lipoprotein 38 mg/dL (5-40)
[2024-05-12 10:01] LABS: Hemoglobin A1c 7.2 % (3.8-5.6)
== END ==
LOC: OLS.ACW400 05:00
PROVIDERS: PCP Family Medicine; Visit Provider Family Medicine
DX: G30.8 Other Alzheimer's disease (principal); E11.40 Type 2 diabetes mellitus with diabetic neuropathy, unspecified; E78.5 Hyperlipidemia, unspecified; I25.10 Atherosclerotic heart disease of native coronary artery without angina pectoris
CPT/HCPCS: 36415; 80053; 80061; 83036; 84443; 85027

== ENCOUNTER → 2024-06-12 | Outpatient (REF) | payer MEDICARE, SELFPAY ==
[2024-06-12 09:44] LABS: Vitamin D,25 Hydroxy 37.9 ng/mL (30-100)
== END ==
LOC: OLS.ACW400 06:15
PROVIDERS: PCP Family Medicine; Referring Provider Family Medicine; Visit Provider Family Medicine
DX: E55.9 Vitamin D deficiency, unspecified (principal); E11.40 Type 2 diabetes mellitus with diabetic neuropathy, unspecified; G30.8 Other Alzheimer's disease
CPT/HCPCS: 36415; 82306; 83036

== ENCOUNTER → 2024-08-04 | Outpatient (REF) | payer MEDICARE, SELFPAY ==
[2024-08-04 09:24] LABS: Bacteria 0 SEEN /hpf (None Seen); Mucous, Urine 0 SEEN /hpf (<or=2+)
[2024-08-04 09:56] LABS: Hematocrit 38.9 % (37-47); Hemoglobin 12.7 g/dL (12.0-15.0); Mean Corp Hgb Conc 32.6 g/dL (32-36); Mean Platelet Vol. 10.9 fl (6.2-12.0); Platelet Count 360 K/mm3 (150-450); RBC Distribution Width CV 12.4 % (11.6-14.6); RBC Distribution Width SD 41.8 fl (35.1-43.9); Red Blood Count 4.23 M/mm3 (4.2-5.4); White Blood Count 11.6 K/mm3 (4.4-11.0)
[2024-08-04 10:03] LABS: ALB/GLOB Ratio 1.1 RATIO (0.9-2.4); AST(SGOT) 19 U/L (<=31); Alanine Aminotransfer ALT/SGPT 8 U/L (<=34); Albumin, Serum 3.8 g/dL (3.4-4.8); Alkaline Phosphatase 85 U/L (35-104); Anion Gap 14 (5-15); BUN 34 mg/dL (4-19); BUN/Creat Ratio 36.6 RATIO (10-20); Calcium,Total 9.8 mg/dL (7.6-11.0); Carbon Dioxide 24.3 mmol/L (21.0-32.0); Chloride 99 mmol/L (98-108); Creatinine, Serum 0.93 mg/dL (0.70-1.20); EST Glomerular Filtration Rate 60 (>60); Globulin 3.4 g/dL (2.2-4.2); Glucose 145 mg/dL (70-99); Potassium 4.6 mmol/L (3.3-5.1); Protein, Total 7.3 g/dL (5.9-8.4); Sodium Level 137 mmol/L (133-145); Total Bilirubin 0.22 mg/dL (0.00-1.30)
[2024-08-04 10:25] LABS: Color, Urine Yellow (Yellow); Glucose, Dipstick Normal (Normal); Ketone-Dipstick Negative (Negative); Leukocyte Esterase-Dipstick 100 /ul (Negative); Nitrite-Dipstick Negative (Negative); Occult Blood-Urine 250 /ul (Negative); Protein-Dipstick 30 mg/dl (Negative); Urine Bilirubin Dipstick Negative (Negative); Urine Clarity Sl. Cloudy (Clear); Urine Urobilinogen Normal (Normal)
[2024-08-04 10:37] LABS: White Blood Cells 25-50 SEEN /hpf (0-5)
[2024-08-04 10:38] LABS: Red Blood Cells-Urine 50-100 SEEN /hpf (0-5); Squamous Epithelial Cells - UA 0-5 SEEN /hpf (5-10)
== END ==
LOC: OLS.ACW400 04:00
PROVIDERS: PCP Family Medicine; Referring Provider Family Medicine; Visit Provider Family Medicine
DX: N39.0 Urinary tract infection, site not specified (principal); G30.8 Other Alzheimer's disease; R53.1 Weakness; F03.918 Unspecified dementia, unspecified severity, with other behavioral disturbance; E11.40 Type 2 diabetes mellitus with diabetic neuropathy, unspecified
CPT/HCPCS: 36415; 80053; 81001; 85027; 87077; 87086; 87088; 87186

== ENCOUNTER → 2024-09-08 05:00 | Outpatient (REF) | payer MEDICARE, SELFPAY ==
--- OUTSIDE RECORDS SUMMARY | 2024-09-08 04:15 | XMS RPT_ITS | CCD ---
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 S Unavailable Carlos Herron Primary Care Provider [phone] Carlos Herron MD Primary Care Provider Carlos Herron MD Primary Care Provider Carlos Herron MD Primary Care Provider Carlos Herron MD Primary Care Provider Rubina Simmons APRN, CNP Primary Care Provider Carlos Herron MD Primary Care Provider Neelam (Pharmacist)RanulfoKandice Unavailable [facility], Christel Unavailable Carlos Herron Primary Care Provider LYNETTE SANTIAGO Attending Unavailable CARLOS HERRON Primary Care Unavailabl e Neelam Kandice Unavailable Carlos Herron Primary Care Provider RUBINA MOORE Attending Unavailable CARLOS HERRON Primary Care Unavailable RUBINA MOORE Attending Unavailable CARLOS HERRON Primary Care Unavailable RUBINA MOORE Attending Unavailable CARLOS HERRON Primary Care Unavailable CARLOS HERRON Primary Care Unavailable AUGIE BARRAGAN Attending Unavailable RUBINA MOORE Referring Unavailable CARLOS HERRON Primary Care Unavailable Germaine NAPIER, Dr. Gonzalez Primary Care Provider Demario Abraham Attending Provider UnavailDemario Calzada Referring Provider Unavailabl e CHAPARRO NAVA Admitting Unavailable [facility], [facility] Care UnavailBARNEY Gonzales Attending Unavailable REY ROWAN Admitting Unavailable REY ROWAN Attending Unavailable [facility], [facility] Unavailabl e GERMAINE, [facility] Care UnavailLYNETTE Woody Attending Unavailable Demario Abraham Attending Unavailable [facility] Care Unavailable [facility], [facility] Care Unavailable Demario Abraham Attending Unavailable Demario Abraham Referring Unavailable Barry Garcia Attending Unavailable Raeann Parsons Primary Care Unavailable Herb Holm Attending Unavailable [facility], [facility] Care Unavailable [facility], [facility] Care Unavailable Demario Abraham Referring Unavailable Demario Abraham Attending Unavailable [facility] Care Unavailable Demario Abraham Attending Unavailable [facility] Care Unavailable Demario Abraham Referring Unavailable Demario Abraham Attending Unavailable Allergies Allergy Classification Reported Allergen(s) Allergy Type Date of Onset Reaction(s) Facility Acetaminophen / HYDROcodone (2 sources) Acetaminophen / HYDROcodone Drug Allergy 11-10-19 [facility] HMG-CoA Reductase Inhibitors (statins) (4 sources) atorvastatin Drug Allergy 04-28-19 10 Other (See Comments) [facility] NSAIDs (2 sources) celecoxib Drug Allergy 08-04-19 04 [facility] Opioid Agonists (2 sources) Morphine Drug Allergy 08-04-19 04 Other (See Comments) [facility] rofecoxib (2 sources) rofecoxib Drug Allergy 08-04-19 04 [facility] (3 sources) acetaminophen / HYDROcodone drug allergy 11-10-[address] [facility] (3 sources) acetaminophen / oxyCODONE drug allergy 11-10-[address] [facility] (20 sources) Acetaminophen / HYDROcodone Drug Allergy 11-10-19 [facility] Work Phone: (7 sources) atorvastatin Drug Allergy 04-28-19 10 Other: See Comments [facility] Work Phone: (12 sources) celecoxib; Translations: [CELECOXIB] Drug Allergy 08-04-19 04 Nausea [facility] Work Phone: (5 sources) Hmg-Coa Reductase Inhibitors (Statins) Propensity to adverse reactions to drug 09-06-19 17 Other (See Comments) [facility] Work Phone: (20 sources) Morphine; Translations: [MORPHINE] Drug Allergy 08-04-19 04 Other (See Comments), Other, GI Upset [facility] Work Phone: (12 sources) rofecoxib; Translations: [ROFECOXIB] Drug Allergy 08-04-19 04 Nausea [facility] Work Phone: (4 sources) Other Propensity to adverse reactions 08-04-19 04 Other (See Comments) [facility] Work Phone: (2 sources) Opioids - Morphine Analogues Propensity to adverse reactions 04-27-19 23 Other, Nausea [facility] (20 sources) celecoxib Drug Allergy 08-04-19 04 [facility] (20 sources) HMG-CoA reductase inhibitor Drug Intolerance 04-28-19 10 Other [facility] (20 sources) rofecoxib Drug Allergy 08-04-19 04 [facility] (7 sources) Pethidine analog; Translations: [OPIOIDS-MEPERIDI NE AND RELATED] Propensity to adverse reactions 08-04-19 04 GI Upset [facility] Work Phone: (3 sources) atorvastatin; Translations: [ATORVASTATIN CALCIUM] Drug Allergy 04-28-19 10 [facility] (1 source) celecoxib Drug Allergy 01-01-20 24 [facility] (1 source) rofecoxib Drug Allergy 01-01-20 24 [facility] (1 source) Opioids - Morphine Analogues Drug allergy (disorder) 01-01-20 24 [facility] (1 source) [place]-Dmf-Agf Reductase Inhibitor Drug allergy (disorder) 01-01-20 [facility] Repository NEGATED: Highlighted row has been ruled out!Unclassified (1 source) Other Propensity to adverse reactions 08-04-19 04 Other (See Comments) [facility] Medications Current Medications Medication Drug Class(es) Dates Sig (Normalized) Sig (Original) acetaminophen 500 mg oral tablet (20 sources) Start: 10-21-2020 take 500 mg by mouth twice daily, then take 4000 mg by mouth every twenty-four hours 500 mg, Oral, 2 TIMES DAILY, First dose on Sun10/21/20 at 2100 Maximum dose of acetaminophen is 4000 mg from all sources in 24 hours. Start: 10-21-2020 acetaminophen (TYLENOL) tablet 650 mg take 500-1000 mg by mouth every eight hours as needed acetaminophen (TYLENOL EXTRA STRENGTH) 500 mg tablet Take 500-1,000 mg by mouth every 8 hours as needed. Active Comment on above: Take 500-1,000 mg by mouth every 8 hours as needed. acetaminophen 325 mg / oxyCODONE hydrochloride 5 mg oral tablet (1 source) Opioid Agonist Start: 10-16-19 take 1 tablet by mouth every six hours as needed for pain Oxycodone-Acetamin ophen (Percocet) 5-325 mg tablet Active 1 {tbl} PO EVERY 6 HOURS as needed for pain 12 October 16, 2023 amLODIPine 5 mg oral tablet (9 sources) Dihydropyridine Calcium Channel Elizabeth Start: 09-06-19 take 1 tablet by mouth once daily Amlodipine 5 MG tablet Active 5 mg PO DAILY September 05, 2016 12:00am Comment on above: Take 1 tablet by peter th once daily. 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 Active Comment on above: Take 325 mg by mouth once daily. betaxolol hydrochloride 10 mg oral tablet (20 sources) beta-Adrenergic Elizabeth Start: 10-21-2020 take 5 mg by mouth once daily 5 mg, Oral, DAILY, First dose on Sun10/21/20 at 2018 No therapeutic substitution for this medication, please ask patient to supply from home. Product can be verified by pharmacy for in-patient use. 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 cephalexin 500 mg oral capsule (1 source) Cephalosporin Antibacterial Start: 08-29-19 End: 09-03-19 take 1 capsule by mouth three times daily cephALEXin (KEFLEX) 500 mg capsule Take 1 capsule by mouth three times a day for 5 days. 15 capsule 08/28/2024 09/02/2024 Active cetirizine hydrochloride 10 mg oral tablet (1 source) Histamine-1 Receptor Antagonist Start: 10-23-19 take 10 mg by mouth once daily 10 mg, Oral, DAILY, First dose on Sun10/22/20 at 0900 Substituted for Loratadine (CLARITIN). Start: 10-22-2020 take 10 mg by mouth once daily 10 mg, Oral, DAILY, First dose on Sun10/22/20 at 0900 Substituted for Loratadine (CLARITIN). cholecalciferol 0.125 mg disintegrating oral tablet (15 sources) Vitamin D take 125 ug by mouth once daily cholecalciferol, vitamin D3, 125 mcg (5,000 unit) ODT Take 125 mcg by mouth once daily. Active ciprofloxacin 500 mg oral tablet (1 source) Quinolone Antimicrobial Start: 023 End: 023 take 1 tablet by mouth twice daily ciprofloxacin (Cipro) 500 MG tablet Indications: Dysuria , Urinary frequency Take 1 tablet (500 mg) by mouth 2 times daily for 7 days. 14 tablet 0 03/16/2023 03/23/2023 Active COMPOUNDED PRESCRIPTION (4 sources) Start: 019 COMPOUNDED PRESCRIPTION If patient presents with allergic reaction, please check tryptase level and fax results to Dr. Sprague at [phone] 1 Each 07/16/2018 Active Comment on above: If patient presents with allergic reaction, please check tryptase level and fax results to Dr. Sprague at [phone] DULoxetine 60 mg delayed release oral capsule (20 sources) Serotonin and Norepinephrine Reuptake Inhibitor Start: take 1 capsule by mouth once daily DULoxetine (CYMBALTA) 60 mg capsule Take 60 mg by mouth once daily. 07/08/2024 Active Start: 09-28-2023 take 2 capsules by m outh once daily DULoxetine HCl 30 MG Capsule Delayed Release Sprinkle Indications: Mild episode of recurrent major depressive disorder (HCC) Take 60 mg by mouth daily. 180 capsule 1 09/28/2023 Active Start: 01-29-2023 take 2 capsules by m outh once daily DULoxetine HCl 30 MG Capsule Delayed Release Sprinkle Indications: Mild episode of recurrent major depressive disorder (HCC) Take 60 mg by mouth daily. 180 capsule 1 01/29/2023 Active Start: 05-31-2022 End: 01-29-2023 take 1 capsule by mouth once daily DULoxetine HCl 30 MG Capsule Delayed Release Sprinkle Indications: Mild episode of recurrent major depressive disorder (HCC) Take 30 mg by mouth daily. 90 capsule 1 11/01/2022 01/29/2023 Discontinued (Reorder) Start: 12-07-2021 take 1 capsule by mo uth in the morning DULoxetine HCl 30 MG Capsule Delayed Release Sprinkle Take 30 mg by mouth in the morning. 0 12/07/2021 Active Start: 10-22-2020 take 30 mg by mouth once daily 30 mg, Oral, DAILY, First dose on Sun10/22/20 at 0900 Start: 06-04-2020 take 1 capsule by mo uth once daily DULoxetine HCl 30 MG CSDR Take 30 mg by mouth daily 90 capsule 1 06/04/2020 Active Start: 07-12-2019 take 1 capsule by mo uth twice daily DULoxetine (CYMBALTA) 30 mg capsule Indications: Recurrent major depressive disorder, in partial remission (HCC) Take 1 capsule by mouth twice daily. 60 capsule 5 07/12/2019 Active Comment on above: Take 1 capsule by mo uth twice daily. DULoxetine HCl 30 MG CSDR (3 sources) Start: 06-04-2020 take 1 capsule by mouth once daily DULoxetine HCl 30 MG CSDR Take 30 mg by mouth daily 90 capsule 1 06/04/2020 Active Start: 07-12-2019 take 30 mg by mouth once daily DULoxetine HCl 30 MG CSDR Take 30 mg by mouth daily 0 07/12/2019 Active Elastic Bandages & Supports (WRIST SPLINT/COCK-UP/LEFT SM) MISC (1 source) Start: 08-18-2020 Elastic Bandages & Supports (WRIST SPLINT/COCK-UP/LEFT SM) MISC Indications: Bilateral carpal tunnel syndrome 1 each by Does not apply route daily 1 each 0 08/18/2020 Active Elastic Bandages & Supports (WRIST SPLINT/COCK-UP/RIGHT SM) MISC (1 source) Start: 08-18-2020 Elastic Bandages & Supports (WRIST SPLINT/COCK-UP/RIGHT SM) MISC Indications: Bilateral carpal tunnel syndrome 1 each by Does not apply route daily 1 each 0 08/18/2020 Active enalapril maleate 10 mg oral tablet (20 sources) Angiotensin Converting Enzyme Inhibitor Start: 07-11-2023 End: 01-10-2024 enalapril (Vasotec) 10 MG tablet TAKE ONE-HALF (1/2) TABLET DAILY 45 tablet 3 01/10/2024 Active Start: 01-12-2023 enalapril (Vas otec) 10 MG tablet TAKE 1 TABLET DAILY 90 tablet 1 01/12/2023 Active Start: 07-21-2021 take 1 tablet by peter in the morning enalapril (Vasotec) 10 MG tablet Take 1 tablet by mouth in the morning. 0 07/21/2021 Active Start: 10-22-2020 take 10 mg by mouth once daily 10 mg, Oral, DAILY, First dose on Sun10/22/20 at 0900 Start: 11-09-2016 take 1 tablet by peter once daily enalapril (VASOTEC) 10 mg tablet Indications: Type 2 diabetes mellitus without complication, without long-term current use of insulin (HCC) , Essential hypertension, benign Take 1 tablet by mouth once daily. 90 tablet 3 01/13/2019 Active Start: 09-19-2013 take 1 tablet by peter th once daily Enalapril Maleate 5 MG tablet Active 5 mg PO DAILY September 19, 2013 12:00am Comment on above: Take 1 tablet by peter th once daily. 0.4 ml enoxaparin sodium 100 mg/ml prefilled syringe (1 source) Low Molecular Weight Heparin Start: 10-22-2020 inject 40 mg by subcutaneous injection once daily 40 mg, Subcutaneous, DAILY, First dose on Sun10/22/20 at 0900 Start: 10-22-2020 inject 40 mg by subc utaneous injection once daily 40 mg, Subcutaneous, DAILY, First dose on Sun10/22/20 at 0900 escitalopram 10 mg oral tablet (8 sources) Serotonin Reuptake Inhibitor Start: 10-22-2020 take 5 mg by mouth once daily 5 mg, Oral, DAILY, First dose on Sun10/22/20 at 0900 Start: 02-13-2020 take 1 tablet by peter th once daily escitalopram (LEXAPRO) 5 MG tablet Indications: Mild episode of recurrent major depressive disorder (HCC) Take 1 tablet by mouth daily 90 tablet 1 06/04/2020 Active Comment on above: Take 5 mg by mouth o nce daily. famotidine 20 mg oral tablet (20 sources) Histamine-2 Receptor Antagonist Start: 07-14-2021 End: 01-01-2024 famotidine (Pepcid) 20 MG tablet TAKE 1 TABLET DAILY 90 tablet 1 01/01/2024 Active Start: 10-22-2020 take 20 mg by mouth once daily 20 mg, Oral, DAILY, First dose on Sun10/22/20 at 0900 Start: 10-21-2020 famotidine (PE PCID) injection 20 mg Start: 01-26-2020 famotidine (PE PCID) 20 MG tablet TAKE 1 TABLET DAILY 90 tablet 1 07/19/2020 Active Comment on above: Take 20 mg by mouth once daily. Incontinence Supply Disposable ([facility] INCONTINENCE PADS) MISC (5 sources) Start: 09-14-2020 Incontinence Supply Disposable ([facility] INCONTINENCE PADS) MISC Indications: Urinary incontinence, unspecified type 100 each by Does not apply route daily as needed (incontinence) 100 each 5 09/14/2020 Active Start: 05-24-2020 Incontinence S upply Disposable ([facility] INCONTINENCE PADS) MISC Indications: Urinary incontinence, unspecified type 100 each by Does not apply route daily as needed (incontinence) 100 each 5 05/24/2020 Active isopropyl alcohol 0.7 ml/ml medicated pad (4 sources) Start: 07-01-2018 alcohol swabs (ALCOHOL PADS) padm Indications: Type 2 diabetes mellitus without complication, without long-term current use of insulin (HCC) Test Two times a day. Insulin Dep? No E11.9 DM 2 200 Each 4 07/01/2018 Active Comment on above: Test Two times a day . Insulin Dep? No E11.9 DM 2 linagliptin 5 mg oral tablet (3 sources) Dipeptidyl Peptidase 4 Inhibitor Start: 07-28-2024 take 1 tablet by mouth once daily TRADJENTA 5 mg tab Take 5 mg by mouth once daily. 07/28/2024 Active Start: 10-22-2020 linagliptin (T RADJENTA) tablet 5 mg lisinopril 5 mg oral tablet (2 sources) Angiotensin Converting Enzyme Inhibitor Start: 07-08-2024 take 1 tablet by mouth once daily lisinopril (ZESTRIL) 5 mg tablet Take 5 mg by mouth once daily. 07/08/2024 Active loperamide hydrochloride 2 mg oral tablet (3 sources) Opioid Agonist loperamide HCl (IMODIUM) 2 mg tab Take 2 mg by mouth as needed (diarrhea). Active take 1 tablet by peter th once as needed for diarrhea, then take 4 tablets by mouth once daily as needed for diarrhea loperamide (Imodium A-D) 2 MG tablet Chris e 2 mg by mouth as needed for diarrhea (not to exceed 8mg/day). Active loratadine 10 mg oral tablet (20 sources) Start: 01-26-2020 End: 01-01-2024 take 1 tablet by mouth in the morning loratadine (Claritin) 10 MG tablet Take 1 tablet by mouth in the morning. 0 07/14/2021 Active Comment on above: Take 10 mg by mouth once daily. LORazepam 0.5 mg oral tablet (2 sources) Benzodiazepine Start: 07-23-2024 take 0.5 mg by mouth twice daily LORazepam (ATIVAN) 0.5 mg Take 0.5 mg by mouth two times a day. 07/23/2024 Active magnesium oxide 400 mg oral tablet (4 sources) magnesium oxide 400 mg magnesium tab Take by mouth once daily. Active Comment on above: Take by mouth once d aily. osmotic 24 hr metFORMIN hydrochloride 1000 mg extended release oral tablet (20 sources) Biguanide Start: 07-08-2024 take 1 tablet by mouth twice daily metFORMIN ER (FORTAMET) 1,000 mg 24 hr tablet Take 1,000 mg by mouth two times a day. 07/08/2024 Active Start: 02-04-2024 take 2 tablets by mo uth twice daily metFORMIN XR (Glucophage-XR) 500 MG 24 hr tablet Indications: Type 2 diabetes mellitus with hyperlipidemia (HCC) (HCC) , Diabetic polyneuropathy associated with diabetes mellitus due to underlying condition (CMS/HCC) (HCC) Take 2 tablets (1,000 mg) by mouth 2 times daily. 02/04/2024 Active Start: 01-10-2024 End: 02-04-2024 metFORMIN XR (Glucophage-XR) 500 MG 24 hr tablet Indications: Type 2 diabetes mellitus with hyperlipidemia (HCC) (HCC) , Diabetic polyneuropathy associated with diabetes mellitus due to underlying condition (CMS/HCC) (HCC) TAKE 1 TABLET THREE TIMES A DAY 270 tablet 01/10/2024 02/04/2024 Discontinued Start: 11-09-2023 take 2 tablets by [facility] twice daily metFORMIN XR (Glucophage-XR) 500 MG 24 hr tablet Indications: Type 2 diabetes mellitus with hyperlipidemia (HCC) (HCC) , Diabetic polyneuropathy associated with diabetes mellitus due to underlying condition (CMS/HCC) (HCC) Take 2 tablets (1,000 mg) by mouth 2 times daily. Do not crush, chew, or split. 11/09/2023 Active Start: 07-17-2023 End: 11-09-2023 metFORMIN XR (Glucophage-XR) 500 MG 24 hr tablet Indications: Type 2 diabetes mellitus without complication, without long-term current use of insulin (CMS/HCC) (HCC) TAKE 1 TABLET THREE TIMES A DAY 270 tablet 1 07/17/2023 11/09/2023 Discontinued Start: 01-18-2023 metFORMIN XR ( Glucophage-XR) 500 MG 24 hr tablet TAKE 1 TABLET THREE TIMES A DAY 270 tablet 1 01/18/2023 Active Start: 07-24-2022 metFORMIN XR ( Glucophage-XR) 500 MG 24 hr tablet TAKE 1 TABLET THREE TIMES A DAY 270 tablet 1 07/24/2022 Active Start: 07-25-2021 metFORMIN XR ( Glucophage-XR) 500 MG 24 hr tablet Take 1 tablet by mouth in the morning and 1 tablet at noon and 1 tablet before bedtime. 0 07/25/2021 Active Start: 09-15-2020 metFORMIN (GLU COPHAGE-XR) 500 MG extended release tablet Take 1 tablet by mouth 2 times daily TWICE DAILY 180 tablet 1 09/15/2020 Active Start: 06-17-2019 take 3 tablets by mo uth once daily at breakfast metFORMIN ER (GLUCOPHAGE XR) 500 mg 24 hr tablet Take 3 tablets by mouth daily with breakfast. May increase to 2000mg (4 tablets) daily as tolerated. 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 May increase to 2000mg (4 tablets) daily as tolerated. 24 hr metoprolol succinate 25 mg extended release oral tablet (20 sources) beta-Adrenergic Elizabeth Start: 02-01-2024 take 1 tablet by mouth once daily metoprolol succinate ER (TOPROL XL) 25 mg 24 hr tablet Take 12.5 mg by mouth once daily. 02/01/2024 Active Start: 01-28-2024 End: 02-01-2024 take 0.5 tablet by mouth once daily metoprolol succinate XL (Toprol-XL) 25 MG 24 hr tablet Indications: Atherosclerosis of coronary artery of [place] heart without angina pectoris, unspecified vessel or lesion type , Essential hypertension, benign Take 0.5 tablets (12.5 mg) by mouth daily. Do not crush or chew. 02/01/2024 Active Start: 06-11-2023 End: 01-28-2024 metoprolol succinate XL (Top rol-XL) 25 MG 24 hr tablet Indications: Atherosclerosis of coronary artery of [place] heart without angina pectoris, unspecified vessel or lesion type , Essential hypertension, benign TAKE 1 TABLET DAILY (DO NOT CRUSH OR CHEW) 90 tablet 3 01/28/2024 Active mirtazapine 7.5 mg oral tablet (2 sources) Start: 07-11-2024 take 1 tablet by mouth once daily at bedtime Mirtazapine (REMERON) 7.5 mg tablet Take 7.5 mg by mouth daily at bedtime. 07/11/2024 Active 24 hr niacin 500 mg extended release oral tablet (2 sources) Nicotinic Acid Start: 09-19-2013 Niacin 500 MG tablet extended release 24 hr Active 1000 mg PO DAILY September 19, 2013 12:00am Start: 09-19-2013 take 1000 mg by mouth once rosa ly Niacin Active 1000 MG PO DAILY September 18, 2013 11:00pm nitrofurantoin, macrocrystals 25 mg / nitrofurantoin, monohydrate 75 mg oral capsule (1 source) Nitrofuran Antibacterial Start: 06-15-2022 End: 06-22-2022 take 1 capsule by mouth twice daily nitrofurantoin, macrocrystal-monohydrate, (Macrobid) 100 MG capsule Take 1 capsule (100 mg) by mouth 2 times daily for 7 days. 14 capsule 0 06/15/2022 06/22/2022 Active ondansetron 4 mg disintegrating oral tablet (1 source) Serotonin-3 Receptor Antagonist Start: 10-16-2023 take 1 tablet by mouth three times daily as needed for nausea and vomiting Ondansetron 4 mg tablet,disintegrating Active 4 mg PO THREE TIMES A DAY as needed for nausea and vomiting October 16, 2023 3:36am ondansetron (ZOFRAN-ODT) disintegrating tablet 4 mg (1 source) Start: 10-21-2020 ondansetron (ZOFRAN-ODT) disintegrating tablet 4 mg 24 hr oxybutynin chloride 5 mg extended release oral tablet (2 sources) Cholinergic Muscarinic Antagonist Start: 08-04-2019 take 1 tablet by mouth once daily oxybutynin XL (DITROPAN XL) 5 mg 24 hr tablet Take 1 tablet by mouth once daily. 90 tablet 3 08/04/2019 Active Comment on above: Take 1 tablet by peter once daily. phenazopyridine hydrochloride 200 mg delayed release oral tablet (4 sources) Start: 07-14-2020 phenazopyridine (PYRIDIUM) 200 MG tablet 1 tablet 3 times daily after meals for 2 days 6 tablet 0 07/14/2020 Active Start: 11-03-2019 take 1 tablet by [facility] every eight hours as needed phenazopyridine (PYRIDIUM) 200 mg tablet Take 1 tablet by mouth three times daily as needed. 6 tablet 11/03/2019 Active Comment on above: Take 1 tablet by [facility] three times daily as needed. polyethylene glycol [id number] mg powder for oral solution (1 source) Osmotic Laxative Start: 1 17 g, Oral, DAILY PRN, Constipation, Starting on Lisbeth 10/21/20 at 2017 First line therapy for constipation potassium 99 mg extended release oral tablet (5 sources) Potassium 99 MG TABS Take by mouth daily 0 Active potassium gluconate 2.5 meq oral tablet (2 sources) Potassium 99 mg tab Take by mouth once daily. Active Comment on above: Take by mouth once d aily. pravastatin sodium 20 mg oral tablet (2 sources) HMG-CoA Reductase Inhibitor Start: 0 take 1 tablet by mouth once daily pravastatin (PRAVACHOL) 20 mg tablet Take 1 tablet by mouth once daily. 90 tablet 3 06/09/2019 Active Comment on above: Take 1 tablet by [facility] once daily. predniSONE 20 mg oral tablet (13 sources) Start: 4 take 1 tablet by mouth once daily as needed predniSONE (Deltasone) 20 MG tablet Take 1 tablet by mouth once daily as needed for hives. 10 tablet 07/11/2023 Active rosuvastatin calcium 10 mg oral tablet (20 sources) HMG-CoA Reductase Inhibitor Start: 5 take 1 tablet by mouth once daily rosuvastatin (CRESTOR) 10 mg tablet Take 1 tablet by mouth once daily. 90 tablet 08/08/2024 Active Start: 02-07-2023 End: 02-01-2024 take 1 tablet by mouth once daily rosuvastatin (Crestor) 10 MG tablet Indications: Atherosclerosis of coronary artery of [place] heart without angina pectoris, unspecified vessel or lesion type , Mixed hyperlipidemia Take 1 tablet (10 mg) by mouth daily. 30 tablet 02/07/2023 02/01/2024 Discontinued (Non-compliance) Start: 03-19-2020 End: 11-13-2022 take 1 tablet by mouth in the morning rosuvastatin (Crestor) 10 MG tablet Take 1 tablet by mouth in the morning. 0 01/27/2022 06/12/2022 Discontinued (Reorder) Comment on above: Take 10 mg by mouth once daily. sertraline 50 mg oral tablet (2 sources) Serotonin Reuptake Inhibitor Start: 07-26-19 take 1 tablet by mouth once daily sertraline (ZOLOFT) 50 mg tablet Take 50 mg by mouth once daily. 07/25/2024 Active SITagliptin 100 mg oral tablet (20 sources) Dipeptidyl Peptidase 4 Inhibitor Start: 09-06-19 End: 10-12-19 take 1 tablet by mouth once daily Sitagliptin Phosphate (Januvia) 100 MG tablet Active 100 mg PO DAILY September 05, 2016 12:00am Comment on above: Take 1 tablet by peter th once daily. 3 ml sodium chloride 9 mg/ml injection (4 sources) Start: 10-22-19 take 1 dose intravenously twice daily 5-40 mL, Intravenous, EVERY 12 HOURS SCHEDULED (2 times per day), First dose on Lisbeth 10/21/20 at 2100 For Line Patency: Peripheral IV = 5 mL; Midline or Central Line = 10 mL/lumen. &nbs p;If following IV push medication, administer flush at same rate as the IV push. Flush volume is determined by type of infusion therapy being given. F or non-viscous solutions use: Periphera l IV = 5 mL Midline or Central Line = 10 mL/lumen &nbsp ;For viscous solutions (i.e. blood components, parenteral nutrition, contrast media, or after obtaining blood sample) use: Periphera l IV = 10 mL Midline or Central Line = 20 mL/lumen Start: 10-21-2020 Intravenous, a t 75 mL/hr, CONTINUOUS, Starting on Lisbeth 10/21/20 at 2018 Start: 10-21-2020 take 5-40 mL intrave nously once as needed 5-40 mL, Intravenous, PRN, Line Care, After every IV line use, Starting on Lisbeth 10/21/20 at 2017 For Line Patency: Peripheral IV = 5 mL; Midline or Central Line = 10 mL/lumen. If following IV push medication, administer flush at same rate as the IV push. Flush volume is determined by type of infusion therapy being given. For non-viscous solutions use: Peripheral IV = 5 mL Midline or Central Line = 10 mL/lumen For viscous solutions (i.e. blood components, parenteral nutrition, contrast media, or after obtaining blood sample) use: Peripheral IV = 10 mL Midline or Central Line = 20 mL/lumen Start: 10-21-2020 take 25 mL intraveno usly every hour as needed 25 mL, Intravenous, at 100 mL/hr, PRN, If patient receiving piggyback infusions without ordered maintenance IV fluids or with frequent/long duration piggyback infusions, Starting on Lisbeth 10/21/20 at 2017 Administer at the same rate as the piggyback being infused. tamsulosin hydrochloride 0.4 mg oral capsule (2 sources) alpha-Adrenergic Elizabeth Start: 08-09-2024 take 1 capsule by mouth once daily tamsulosin (FLOMAX) 0.4 mg Take 1 capsule by mouth once daily. 90 capsule 08/09/2024 Active traMADol hydrochloride 50 mg oral tablet (20 sources) Opioid Agonist Start: 12-24-2023 End: 02-23-2024 take 1 tablet by mouth every eight hours as needed for pain traMADol (Ultram) 50 MG tablet Indications: Chronic pain of both feet , Osteoarthritis, unspecified osteoarthritis type, unspecified site Take 1 tablet (50 mg) by mouth every 8 hours as needed for severe pain (7-10). 90 tablet 01/24/2024 02/23/2024 Active Start: 10-22-2023 End: 11-21-2023 take 1 tablet by mouth every eight hours as needed for pain traMADol (Ultram) 50 MG tablet Indications: Chronic pain of both feet , Osteoarthritis, unspecified osteoarthritis type, unspecified site Take 1 tablet (50 mg) by mouth every 8 hours as needed for severe pain (7-10). 90 tablet 10/22/2023 11/21/2023 Active Start: 09-20-2023 End: 10-20-2023 take 1 tablet by mouth every eight hours as needed for pain traMADol (Ultram) 50 MG tablet Indications: Chronic pain of both feet , Osteoarthritis, unspecified osteoarthritis type, unspecified site Take 1 tablet (50 mg) by mouth every 8 hours as needed for severe pain (7-10). 90 tablet 09/20/2023 10/20/2023 Active Start: 03-27-2023 End: 08-22-2023 take 1 tablet by mouth every eight hours as needed for pain traMADol (Ultram) 50 MG tablet Indications: Chronic pain of both feet , Osteoarthritis, unspecified osteoarthritis type, unspecified site Take 1 tablet (50 mg) by mouth every 8 hours as needed for severe pain (7-10). Do not start before June 25, 2023. 90 tablet 0 06/25/2023 07/25/2023 Active Start: 01-19-2023 End: 02-18-2023 take 1 tablet by mouth every eight hours as needed for pain traMADol (Ultram) 50 MG tablet Indications: Chronic pain of both feet , Osteoarthritis, unspecified osteoarthritis type, unspecified site Take 1 tablet (50 mg) by mouth every 8 hours as needed for severe pain (7-10). 90 tablet 0 01/19/2023 02/18/2023 Start: 09-25-2022 End: 11-24-2022 take 1 tablet by mouth every eight hours as needed for pain traMADol (Ultram) 50 MG tablet Indications: Chronic pain of both feet , Osteoarthritis, unspecified osteoarthritis type, unspecified site Take 1 tablet (50 mg) by mouth every 8 hours as needed for severe pain (7-10). Do not start before October 25, 2022. 90 tablet 0 10/25/2022 11/24/2022 Active Start: 05-31-2022 End: 06-30-2022 take 1 tablet by mouth every eight hours as needed for pain traMADol (Ultram) 50 MG tablet Indications: Chronic pain of both feet Take 1 tablet (50 mg) by mouth every 8 hours as needed for severe pain (7-10). 90 tablet 0 05/31/2022 06/30/2022 Active Start: 03-29-2022 End: 04-28-2022 take 1 tablet by mouth every eight hours as needed for pain traMADol (Ultram) 50 MG tablet Indications: Chronic pain of both feet Take 1 tablet (50 mg) by mouth every 8 hours as needed for severe pain (7-10). 90 tablet 0 03/29/2022 04/28/2022 Active Start: 10-15-2020 End: 11-14-2020 take 1 tablet by mouth every eight hours as needed for pain traMADol (ULTRAM) 50 MG tablet Indications: Chronic pain of both feet Take 1 tablet by mouth every 8 hours as needed for Pain for up to 30 days. 90 tablet 0 10/15/2020 11/14/2020 Active Start: 07-14-2020 End: 08-13-2020 take 1 tablet by mouth every eight hours as needed for pain traMADol (ULTRAM) 50 MG tablet Indications: Chronic pain of both feet Take 1 tablet by mouth every 8 hours as needed for Pain for up to 30 days. 90 tablet 0 07/14/2020 08/13/2020 Active Start: 10-28-2019 End: 07-11-2020 take 1-2 tablets by mouth twice daily traMADol (ULTRAM) 50 mg tablet Indications: Left buttock pain , Pain in left hip , Arthritis of foot Take 1-2 tablets by mouth twice daily for 90 days. as directed 300 tablet 10/28/2019 Active Start: 11-09-2016 take 2 tablets by mo [facility] twice daily TRAMADOL HCL 50 MG TABS Two tablets by mouth twice daily TRAMADOL HCL [id number] Kenyetta Arguelles [employer] Start: 09-19-2013 [facility] six hours as needed for pain Tramadol 50 MG tablet Active 50 mg PO EVERY 6 HOURS NEEDED as needed for Pain September 19, 2013 12:00am Comment on above: Take 1-2 tablets by mouth twice daily for 90 days. as directed Completed/Discontinued Medications Medication Drug Class(es) Dates Sig (Normalized) Sig (Original) amoxicillin 875 mg / clavulanate 125 mg oral tablet (6 sources) Penicillin-class Antibacterial Start: 02-01-2024 End: 02-08-2024 take 1 tablet by mouth twice daily amoxicillin-clavul anate (Augmentin) 875-125 MG tablet Take 1 tablet by mouth 2 times daily for 7 days. 14 tablet 02/01/2024 02/04/2024 Discontinued (Therapy completed) Start: 06-22-2023 End: 06-29-2023 take 1 tablet by mouth twice daily amoxicillin-clavulanate (Augmentin) 875-125 MG tablet Take 1 tablet by mouth 2 times daily for 7 days. 14 tablet 0 06/22/2023 06/29/2023 Active Start: 11-08-2022 End: 11-15-2022 take 1 tablet by mouth twice daily amoxicillin-clavulanate (Augmentin) 875-125 MG tablet Indications: Leukocytes in urine , Other microscopic hematuria Take 1 tablet by mouth 2 times daily for 7 days. 14 tablet 0 11/08/2022 11/13/2022 Discontinued (Formulary change) Start: 10-21-2020 End: 10-31-2020 take 1 tablet by mouth twice daily amoxicillin-clavulanate (AUGMENTIN) 875-125 MG per tablet Take 1 tablet by mouth 2 times daily for 10 days 20 tablet 0 10/21/2020 10/31/2020 Active 1 ml diphenhydrAMINE hydrochloride 50 mg/ml cartridge (4 sources) Histamine-1 Receptor Antagonist Start: 10-21-2020 End: 10-21-2020 diphenhydrAMINE (BENADRYL) injection 25 mg take 1 tablet by peter th every eight hours as needed diphenhydrAMINE (BENADryl) 12.5 MG chewa ble tablet Chew 12.5 mg every 8 hours as needed for itching (hives- take with Prednisone). Active take 1 capsule by mo uth every four hours as needed diphenhydrAMINE (BENADRYL) 25 mg capsule Take 25 mg by mouth every 4 hours as needed. Active Comment on above: Take 25 mg by mouth every 4 hours as needed. lidocaine 0.05 mg/mg medicated patch (4 sources) Antiarrhythmic, Amide Local Anesthetic Start: End: apply 1 dose transdermal route once daily, then apply 1 dose transdermal route every twelve hours lidocaine (Lidoderm) 5 % patch Indications: Closed fracture of multiple ribs of left side, initial encounter Apply 1 patch topically daily. Remove & discard patch within 12 hours or as directed by . 9 patch 10/16/2023 11/09/2023 Discontinued Start: 10-16-2023 Lidocaine (Lid ocaine Pain Relief) 4 % adhesive patch,medicated Active 1 NMA TOPICAL TWICE A DAY as needed for pain October 16, 2023 12:00am lidocaine (SALON PAS) 4 % patch Apply 1 application as directed once daily. Active methylPREDNISolone 4 mg oral tablet (7 sources) Corticosteroid Start: 09-27-2022 End: 11-13-2022 methylPREDNISolone (Medrol Dospak) 4 MG tablets Take as directed on package. 21 tablet 0 09/27/2022 11/13/2022 Discontinued (Med list cleanup) Start: 10-21-2020 End: 10-21-2020 methylPREDNISolone sodium (S MARIYA-MEDROL) injection 125 mg piperacillin 3000 mg / tazobactam 375 mg injection (1 source) Penicillin-class Antibacterial, beta Lactamase Inhibitor Start: 10-21-2020 3,375 mg, Intravenous, EVERY 8 HOURS, First dose on Lisbeth 10/21/20 at 2100, Until Discontinued sulfamethoxazole 800 mg / trimethoprim 160 mg oral tablet (8 sources) Dihydrofolate Reductase Inhibitor Antibacterial, Sulfonamide Antimicrobial Start: 01-21-2024 End: 02-01-2024 take 1 tablet by mouth twice daily sulfamethoxazole- trimethoprim (Bactrim DS) 800-160 MG tablet Take 1 tablet by mouth 2 times daily for 5 days. 10 tablet 01/21/2024 02/01/2024 Discontinued (Therapy completed) Start: 05-04-2023 End: 05-11-2023 take 1 tablet by mouth twice daily sulfamethoxazole-trimethoprim (Bactrim D S) 800-160 MG tablet Indications: Hematuria, unspecified type , Leukocytes in urine Take 1 tablet by mouth 2 times daily for 7 days. 14 tablet 0 05/04/2023 05/11/2023 Active Start: 01-29-2023 End: 02-05-2023 take 1 tablet by mouth twice daily sulfamethoxazole-trimethoprim (Bactrim D S) 800-160 MG tablet Indications: Hematuria, unspecified type , Leukocytes in urine Take 1 tablet by mouth 2 times daily for 7 days. 14 tablet 0 01/29/2023 02/05/2023 Start: 11-13-2022 End: 11-20-2022 take 1 tablet by mouth twice daily sulfamethoxazole-trimethoprim (Bactrim D S) 800-160 MG tablet Take 1 tablet by mouth 2 times daily for 7 days. 14 tablet 0 11/13/2022 11/20/2022 Active Problems Active Problems Problem Classification Problem Date Documented Date Episodic/Chronic Abdominal pain (1 source) Left lower quadrant pain; Translations: [Left lower quadrant abdominal pain] Onset: 08-06-2024 Episodic Calculus of urinary tract (8 sources) Kidney stone; Translations: [Calculus of kidney] Onset: 08-06-2024 08-06-2024 Episodic Cardiac dysrhythmias (4 sources) Irregular heart beat; Translations: [Cardiac arrhythmia, unspecified] Onset: 04-28-2009 04-28-2009 Chronic Complications of surgical procedures or medical care (4 sources) Prolapse of vaginal vault after hysterectomy; Translations: [Prolapse of vaginal vault after hysterectomy] Onset: 02-22-2015 02-22-2015 Chronic Conditions associated with dizziness or vertigo (2 sources) Benign paroxysmal positional vertigo; Translations: [Benign paroxysmal vertigo, unspecified ear] 06-14-2014 Episodic Coronary atherosclerosis and other heart disease (20 sources) Coronary atherosclerosis; Translations: [Atherosclerotic heart disease of [place] coronary artery without angina pectoris] Onset: 08-15-2013 01-02-2020 Chronic Delirium, dementia, and amnestic and other cognitive disorders (20 sources) Mixed dementia ; Translations: [Alzheimer's disease, unspecified] Onset: 12-15-2021 01-15-2022 Chronic Diabetes mellitus with complications (20 sources) Polyneuropathy due to diabetes mellitus; Translations: [Diabetes mellitus due to underlying condition with diabetic polyneuropathy] Onset: 11-09-2023 03-05-2023 Chronic Diabetes mellitus without complication (20 sources) Type 2 diabetes mellitus without complication; Translations: [Type 2 diabetes mellitus without complications] Onset: 08-04-2003 01-02-2020 Chronic Diseases of white blood cells (4 sources) Leukocytosis; Translations: [Elevated white blood cell count, unspecified] Onset: 08-06-2024 Resolved: 08-08-2024 Chronic Disorders of lipid metabolism (20 sources) Mixed hyperlipidemia; Translations: [Mixed hyperlipidemia] Onset: 04-28-2009 02-07-2023 Chronic E Codes: Fall (9 sources) Falling injury; Translations: [Unspecified fall, initial encounter] Episodic Essential hypertension (20 sources) Hypertensive disorder; Translations: [Essential (primary) hypertension] Onset: 08-04-2003 09-19-2013 Chronic Genitourinary congenital anomalies (1 source) Congenital occlusion of ureteropelvic junction; Translations: [Hydronephrosis with ureteropelvic junction (UPJ) obstruction] Onset: 08-06-2024 Chronic Genitourinary symptoms and ill-defined conditions (20 sources) Mixed urinary incontinence; Translations: [Mixed incontinence] Onset: 02-22-2015 11-09-2016 Chronic Genitourinary symptoms and ill-defined conditions (20 sources) Increased frequency of urination; Translations: [Frequency of micturition] Onset: 12-15-2021 01-15-2022 Episodic Malaise and fatigue (20 sources) Fatigue; Translations: [Other fatigue] Onset: 12-15-2021 01-15-2022 Episodic Mood disorders (20 sources) Recurrent major depressive episodes, mild ; Translations: [Major depressive disorder, recurrent, mild] Onset: 01-02-2020 01-02-2020 Chronic Noninfectious gastroenteritis (2 sources) Proctocolitis; Translations: [Noninfective gastroenteritis and colitis, unspecified] Onset: 10-21-2020 Episodic Nonspecific chest pain (2 sources) Chest wall pain; Translations: [Other chest pain] 04-27-2022 Episodic Open wounds of head; neck; and trunk (1 source) Laceration of right eyebrow; Translations: [Laceration without foreign body of right eyelid and periocular area, initial encounter] 01-09-2024 Episodic Osteoarthritis (20 sources) Osteoarthritis; Translations: [Unspecified osteoarthritis, unspecified site] Onset: 02-12-2007 01-02-2020 Chronic Other connective tissue disease (20 sources) Pain in right foot; Translations: [Bilateral chronic pain of feet] Onset: 01-02-2020 01-02-2020 Episodic Other connective tissue disease (2 sources) Pain in lower limb; Translations: [Pain in right leg] 09-19-2013 Episodic Other connective tissue disease (2 sources) Pain in left foot; Translations: [Pain in left foot] Onset: 01-15-2022 Episodic Other diseases of bladder and urethra (20 sources) Overactive bladder; Translations: [Overactive bladder] Onset: 01-22-2017 01-02-2020 Chronic Other fractures (1 source) Fracture of multiple ribs ; Translations: [Multiple fractures of ribs, unspecified side, initial encounter for closed fracture] 10-24-2023 Episodic Other injuries and conditions due to external causes (1 source) Injury of ribs; Translations: [Unspecified injury of thorax, initial encounter] 01-10-2021 Episodic Other injuries and conditions due to external causes (1 source) Closed injury of head; Translations: [Unspecified injury of head, initial encounter] 01-09-2024 Episodic Other injuries and conditions due to external causes (2 sources) Abrasion and/or friction burn of multiple sites; Translations: [Unspecified multiple injuries, initial encounter] Onset: 08-08-2024 08-08-2024 Episodic Other nervous system disorders (2 sources) Other chronic pain; Translations: [Other chronic pain] Onset: 01-15-2022 Chronic Other nervous system disorders (1 source) Unsteadiness on feet; Translations: [Unsteadiness on feet] Onset: 09-03-2024 Episodic Other non-traumatic joint disorders (1 source) Pain in right hip joint; Translations: [Pain in right hip] 11-13-2022 Episodic Other nutritional; endocrine; and metabolic disorders (1 source) Hypomagnesemia; Translations: [Hypomagnesemia] Onset: 08-08-2024 Chronic Other skin disorders (1 source) Foot callus; Translations: [Corns and callosities] 03-05-2023 Episodic Prolapse of female genital organs (15 sources) Prolapse of female genital organs; Translations: [Vaginal wall prolapse] Onset: 02-22-2015 11-09-2016 Chronic Residual codes; unclassified (1 source) Amnesia; Translations: [Memory loss] Episodic Residual codes; unclassified (2 sources) Transient altered mental status; Translations: [Disorientation, unspecified] 09-19-2013 Episodic Residual codes; unclassified (4 sources) Statin declined; Translations: [Procedure and treatment not carried out because of patient's decision for unspecified reasons] Onset: 02-01-2024 02-01-2024 Episodic Residual codes; unclassified (2 sources) Procedure and treatment not carried out because of patient's decision for unspecified reasons; Translations: [Procedure and treatment not carried out because of patient's decision for unspecified reasons] Onset: 02-01-2024 Episodic Superficial injury; contusion (2 sources) Contusion of rib; Translations: [Contusion of left front wall of thorax, initial encounter] 04-27-2022 Episodic Unclassified (2 sources) Labs Only; Translations: [Labs Only] Onset: 01-16-2024 Unclassified (1 source) Unspecified dementia, unspecified severity, with other behavioral disturbance; Translations: [Unspecified dementia, unspecified severity, with other behavioral disturbance] Onset: 09-03-2024 Unclassified (1 source) Vascular dementia, moderate, without behavioral disturbance, psychotic disturbance, mood disturbance, and anxiety; Translations: [Vascular dementia, moderate, without behavioral disturbance, psychotic disturbance, mood disturbance, and anxiety] Onset: 04-04-2024 Urinary tract infections (9 sources) Recurrent urinary tract infection; Translations: [Urinary tract infection, site not specified] Onset: 02-01-2024 Resolved: 08-08-2024 06-20-2023 Episodic Past or Other Problems Problem Classification Problem Date Documented Da te Episodic/Chronic Bacterial infection; unspecified site (9 sources) Rheumatic fever; Translations: [Rheumatic fever without heart involvement] Onset: 04-28-2009 Resolved: 01-02-2020 01-02-2020 Episodic Esophageal disorders (4 sources) Esophagitis; Translations: [Esophagitis, unspecified] Onset: 04-11-2012 04-11-2012 Episodic Fluid and electrolyte disorders (2 sources) Lactic acidosis; Translations: [Lactic acidosis] Onset: 08-06-2024 Resolved: 08-08-2024 08-08-2024 Episodic Gastritis and duodenitis (4 sources) Acute gastritis; Translations: [Acute gastritis without bleeding] Onset: 04-11-2012 04-11-2012 Episodic Mood disorders (20 sources) Mood disorders Onset: 03-16-2023 Resolved: 07-26-2023 03-16-2023 Other injuries and conditions due to external causes (1 source) Unspecified injury of head, initial encounter; Translations: [Unspecified injury of head, initial encounter] Onset: 01-25-2024 Episodic Other injuries and conditions due to external causes (1 source) Encounter for examination and observation following other accident; Translations: [Encounter for examination and observation following other accident] Onset: 12-26-2023 Episodic Other lower respiratory disease (20 sources) Cough; Translations: [Acute cough] Onset: 03-29-2022 Resolved: 01-29-2023 03-29-2022 Episodic Other lower respiratory disease (8 sources) Cough; Translations: [Acute cough] Onset: 03-29-2022 Resolved: 01-29-2023 01-29-2023 Episodic Other nutritional; endocrine; and metabolic disorders (2 sources) Hypomagnesemia; Translations: [Hypomagnesemia] Onset: 08-06-2024 Resolved: 08-08-2024 08-08-2024 Chronic Other screening for suspected conditions (not mental disorders or infectious disease) (5 sources) Patient encounter status; Translations: [Encounter for screening for diseases of the blood and blood-forming organs and certain disorders involving the immune mechanism] Onset: 02-01-2024 Resolved: 08-08-2024 02-01-2024 Episodic Phlebitis; thrombophlebitis and thromboembolism (20 sources) History of thromboembolism of vein; Translations: [Personal history of other venous thrombosis and embolism] Onset: 02-04-2003 01-02-2020 Episodic Residual codes; unclassified (4 sources) Family history of pulmonary embolism; Translations: [Family history of ischemic heart disease and other diseases of the circulatory system] Onset: 06-10-2010 06-10-2010 Episodic Residual codes; unclassified (4 sources) History of palpitations; Translations: [Personal history of other specified conditions] Onset: 08-15-2013 08-15-2013 Episodic Residual codes; unclassified (1 source) Altered mental status, unspecified; Translations: [Altered mental status, unspecified] Onset: 04-04-2024 Episodic Septicemia (except in labor) (3 sources) Sepsis; Translations: [Sepsis, unspecified organism] Onset: 08-06-2024 Resolved: 08-08-2024 08-08-2024 Episodic Tuberculosis (9 sources) Tuberculosis; Translations: [Respiratory tuberculosis unspecified] Onset: 04-28-2009 Resolved: 01-02-2020 01-02-2020 Episodic Results Test Name Value Interpretation Reference Range Facility ANES POSTPROC EVALon 025 ANES POSTPROC EVAL HNO ID: [id number] Author: CHEYANNE GOMEZ MD Service: Anesthesiology Author Type: Anesthesiologist Type: Anesthesia Postprocedure Evaluation Filed: 08/28/2024 15:44 Note Text: POST ANESTHESIA EVALUATION NOTE : 1940 Procedure Summary Date: 08/28/24 Room / Location: [place] [address] / [place] Anesthesia Start: 1353 Anesthesia Stop: 1444 Procedures: LASER CYSTOURETHROSCOPY W/ URETEROSCOPY AND/OR PYELOSCOPY W/ LITHOTRIPSY MASTER PULSE HOLMIUM (Left: Renal) CYSTOURETHROSCOPY W/ REMOVE URETERAL STENT (Left: Ureter) INSERTION STENT URETERAL (Left: Ureter) Diagnosis: Renal calculus, left (Renal calculus, left [N20.0]) Surgeons: Rey Rowan MD Responsible Provider: Cheyanne Gomez MD Anesthesia Type: general ASA Status: 3 Anesthesia Type: general Airway Type: LMA Last Vitals Vitals Value Taken Time BP 136/63 08/28/24 1515 Temp 36 ?C (96.8 ?F) 08/28/24 1445 Pulse 63 08/28/24 1518 Resp 18 08/28/24 1515 SpO2 97 % 08/28/24 1518 Vitals shown include unfiled device data. Post Anesthesia Patient Status Patient Evaluation: PACU. PACU/ICU Patient Condition: stable. Anticipated Disposition: phase 2 then home. Neurological Status: aware and responsive. Pulmonary Status: breathing comfortably on room air Airway Control: returned to baseline unsupported. Cardiovascular Status: stable. Pain Management: clinically adequate - multimodal analgesia pain management approach Postoperative Hydration: acceptable. Intraoperative Events: no significant anesthesia events Post Operative Nausea/Vomiting Status: no significant post operative nausea or vomiting Recommendation: continue current plan of care. Anesthesia Observations No Documentation SIGNATURE: Cheyanne Gomez MD PATIENT NAME: Cj Gillis DATE: August 28, 2024 TIME: 3:44 PM CSN: [id number] [facility] ANES PRE-OPon 08-28-2024 ANES PRE-OP HNO ID: [id number] Author: ALEC PERRIN MD Service: Anesthesiology Author Type: Anesthesiologist Type: Anesthesia Preprocedure Evaluation Filed: 08/28/2024 12:44 Note Text: ANESTHESIOLOGY DAY OF SURGERY NOTE : 1940 Procedure Information Date/Time: 08/28/24 1230 Procedures: LASER CYSTOURETHROSCOPY W/ URETEROSCOPY AND/OR PYELOSCOPY W/ LITHOTRIPSY MASTER PULSE HOLMIUM (Left: Renal) CYSTOURETHROSCOPY W/ REMOVE URETERAL STENT (Left: Ureter) INSERTION STENT URETERAL (Left: Ureter) Location: [facility] OR04 / [facility] Surgeons: Rey Rowan MD Estimated body mass index is 19.49 kg/m? as calculated from the following: Height as of this encounter: 160 cm (5' 3). Weight as of this encounter: 49.9 kg (110 lb). 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 Tracheostomy tube not present Mallampati: II. TM distance: >3 FB. Neck ROM: full ROM without neurological symptoms. Mouth opening: adequate. Short neck: no. Thick neck: no DENTAL Normal dental observations. Dental findings: missing tooth/teeth, poor dentition, broken tooth and chipped. Dentures, upper: partial. Dentures, lower: partial. II - ANESTHESIA PLAN ASA Score: 3 Anesthetic Plan: general Airway type: LMA The patient is not a current smoker. NPO Status: adequate Beta Elizabeth Monitoring Plan Monitoring plan: standard ASA. Post Procedure Analgesic Plan Postoperative analgesic plan: parenteral or oral opioids and multimodal analgesia. Informed Consent Anesthetic risks, benefits, alternatives, personnel and consent discussed: yes. Patient / Responsible Republican agrees to proceed: yes Patient / Surrogate agrees to blood products: blood products not planned DNR status reviewed with patient and/or family prior to surgery. patient elects to suspend DNR status in the perioperative setting (Full Code). Significant changes in the patient condition since the History and Physical, not otherwise documented in primary service progress note: no. Potential Anesthesia issues that may suggest increased risk of complications or contraindication to planned procedure: none. Discussed the possibility of lip / dental damage: yes Vitals Value Taken Time BP 116/57 08/28/24 1135 Pulse Resp 18 08/28/24 1135 Temp 36.2 ?C (97.2 ?F) 08/28/24 1135 SpO2 97 % 08/28/24 1135 Facility-Administered Medications as of 08/28/2024 Medication Dose Route Frequency lidocaine (PF) 10 mg/mL (1 %) 1-2 mg injection (XYLOCAINE) 0.1-0.2 mL INTRADERMAL PRN lactated ringers iv infusion 5-30 mL/hr INTRAVENOUS CONTINUOUS NaCl 0.9% iv flush bag 20 mL INTRAVENOUS PRN ceFAZolin iv piggyback 2 g in D5W (iso-osmotic) 100 mL (ANCEF) 2 g INTRAVENOUS Pre-Op Once Outpatient Medications as of 08/28/2024 Medication Sig Aspirin 81 mg tab Take 81 mg by mouth once daily. lidocaine (SALONPAS) 4 % patch Apply 1 application as directed once daily. tamsulosin (FLOMAX) 0.4 mg Take 1 capsule by mouth once daily. cholecalciferol, vitamin D3, 125 mcg (5,000 unit) ODT Take 125 mcg by mouth once daily. TRADJENTA 5 mg tab Take 5 mg by mouth once daily. lisinopril (ZESTRIL) 5 mg tablet Take 5 mg by mouth once daily. loperamide HCl (IMODIUM) 2 mg tab Take 2 mg by mouth as needed (diarrhea). LORazepam (ATIVAN) 0.5 mg Take 0.5 mg by mouth two times a day. metoprolol succinate ER (TOPROL XL) 25 mg 24 hr tablet Take 12.5 mg by mouth once daily. Mirtazapine (REMERON) 7.5 mg tablet Take 7.5 mg by mouth daily at bedtime. sertraline (ZOLOFT) 50 mg tablet Take 50 mg by mouth once daily. DULoxetine (CYMBALTA) 60 mg capsule Take 60 mg by mouth once daily. metFORMIN ER (FORTAMET) 1,000 mg 24 hr tablet Take 1,000 mg by mouth two times a day. famotidine (PEPCID) 20 mg tablet Take 20 mg by mouth once daily. loratadine (CLARITIN) 10 mg tablet Take 10 mg by mouth once daily. traMADol (ULTRAM) 50 mg tablet Take 1-2 tablets by mouth twice daily for 90 days. as directed (Patient taking differently: Take 50 mg by mouth every 8 hours as needed for pain. as directed) acetaminophen (TYLENOL EXTRA STRENGTH) 500 mg tablet Take 500-1,000 mg by mouth every 8 hours as needed. rosuvastatin (CRESTOR) 10 mg tablet Take 1 tablet by mouth once daily. COMPOUNDED PRESCRIPTION If patient presents with allergic reaction, please check tryptase level and fax results to Dr. Sprague at [phone] Lancets lancets Test Two times a day. Insulin Dep? No E11.9 DM 2 alcohol swabs (ALCOHOL PADS (more content not included)... [facility] CALCULI ANALYSISon 5 CALCULI COLOR [employer] [facility] Comment on above: Order Comment: Speci men Type: CALCULUS SPECIMENOrdering Facility: [facility] Address: [address] [place] [address] Performed By: #### C SA ####[facility] LABIA [id number] [place] [address] [place] CALCULI COMPOSITION [facility] Comment on above: Order Comment: Speci men Type: CALCULUS SPECIMENOrdering Facility: [facility] Address: [address] [place] [address] Result Comment: 50% Calcium Oxalate Monohydrate 30% Calcium Oxalate Dihydrate 20% Uric Acid This test was developed, and its performance characteristics determined by the [facility] Department of Pathology and Laboratory Medicine. It has not been cleared or approved by the FDA. The [facility] Department of Pathology and Laboratory Medicine is regulated under CLIA as qualified to perform high-complexity testing. This test is used for clinical purposes. It should not be regarded as investigational or for research. Performed By: #### C SA ####[facility] LABIA [id number] [place] [address] [place] CALCULI SIZE AND WT Multiple pieces 0.02 47 GRAMS [facility] Comment on above: Order Comment: Speci men Type: CALCULUS SPECIMENOrdering Facility: [facility] Address: [address] [place] [address] Performed By: #### C SA ####[facility] LABCLIA [id number] [place] [id number] [place] CALCULI TYPE Calculi or Calculus Normal [facility] Comment on above: Order Comment: Speci men Type: CALCULUS SPECIMENOrdering Facility: [facility] Address: [address] [place] [address] Performed By: #### C SA ####[facility] [id number] [place] [id number] [facility]28[facility] CNPN Telephone (MEPRAD) CJ GILLIS ([id number]) 1940 F Date Time Provider Department 08/28/24 REY ROWAN During your visit today, we recorded the following information about you: Allergies As of Date: 08/28/2024 Noted Allergy Reaction CELECOXIB 08/04/2003 Comments: PALPITATIONS LIPITOR (ATORVASTATIN CALCIUM) 04/28/2009 14 - Other: See Comments Comments: Suspects lipitor decreases her hearing loss and tinnitus and liver spots. MORPHINE 08/04/2003 8 - GI Upset OPIOIDS-MEPERIDINE AND RELATED 08/04/2003 8 - GI Upset ROFECOXIB 08/04/2003 Comments: PALPITATIO;NS Date Reviewed: 08/28/2024 Reviewed by: Radha Toscano, RN - Fully Assessed Prescriptions as of 08/28/2024 - Aspirin 81 mg tab Take 81 mg by mouth once daily. - lidocaine (SALONPAS) 4 % patch Apply 1 application as directed once daily. - cephALEXin (KEFLEX) 500 mg capsule Take 1 capsule by mouth three times a day for 5 days. - tamsulosin (FLOMAX) 0.4 mg Take 1 capsule by mouth once daily. - rosuvastatin (CRESTOR) 10 mg tablet Take 1 tablet by mouth once daily. - cholecalciferol, vitamin D3, 125 mcg (5,000 unit) ODT Take 125 mcg by mouth once daily. - TRADJENTA 5 mg tab Take 5 mg by mouth once daily. - lisinopril (ZESTRIL) 5 mg tablet Take 5 mg by mouth once daily. - loperamide HCl (IMODIUM) 2 mg tab Take 2 mg by mouth as needed (diarrhea). - LORazepam (ATIVAN) 0.5 mg Take 0.5 mg by mouth two times a day. - metoprolol succinate ER (TOPROL XL) 25 mg 24 hr tablet Take 12.5 mg by mouth once daily. - Mirtazapine (REMERON) 7.5 mg tablet Take 7.5 mg by mouth daily at bedtime. - sertraline (ZOLOFT) 50 mg tablet Take 50 mg by mouth once daily. - DULoxetine (CYMBALTA) 60 mg capsule Take 60 mg by mouth once daily. - metFORMIN ER (FORTAMET) 1,000 mg 24 hr tablet Take 1,000 mg by mouth two times a day. - famotidine (PEPCID) 20 mg tablet Take 20 mg by mouth once daily. - loratadine (CLARITIN) 10 mg tablet Take 10 mg by mouth once daily. - traMADol (ULTRAM) 50 mg tablet Take 1-2 tablets by mouth twice daily for 90 days. as directed - COMPOUNDED PRESCRIPTION If patient presents with allergic reaction, please check tryptase level and fax results to Dr. Sprague at [phone] - Lancets lancets Test Two times a day. Insulin Dep? No E11.9 DM 2 - alcohol swabs (ALCOHOL PADS) padm Test Two times a day. Insulin Dep? No E11.9 DM 2 - blood sugar diagnostic (BLOOD GLUCOSE TEST) test strip Test 2 times daily, Insulin Dep? No E11.9 DM 2 - acetaminophen (TYLENOL EXTRA STRENGTH) 500 mg tablet Take 500-1,000 mg by mouth every 8 hours as needed. Facility-Administered Medications as of 08/28/2024 - propofol infusion (DIPRIVAN) - lactated ringers iv infusion - fentaNYL 50 mcg/mL injection (SUBLIMAZE) - propofol injection (DIPRIVAN) - lidocaine (PF) 20 mg/mL (2 %) injection (XYLOCAINE) - ondansetron (PF) injection (ZOFRAN) - lidocaine urojet 2 % topical gel (GLYDO) - NaCl 0.9% irrigation bag Problem List As Of Date 08/28/2024 Noted Resolved Personal History of Venous Thrombosis and Embol*02/04/2003 DM type 2 (diabetes mellitus, type 2) (HCC) [E1*08/04/2003 Essential hypertension, benign [I10] 08/04/2003 Generalized osteoarthrosis of hand [M15.9] 02/12/2007 Hyperlipidemia [E78.5] 04/28/2009 Rheumatic Fever [I00] 04/28/2009 Irregular Heart Beat [I49.9] 04/28/2009 TB (Tuberculosis) [A15.9] 04/28/2009 Arthritis of foot [M19.079] 02/01/2010 Family history of pulmonary embolism [Z82.49] 06/10/2010 Esophagitis, unspecified [K20.90] 04/11/2012 Acute gastritis without mention of hemorrhage [*04/11/2012 OA (osteoarthritis) [M19.90] 07/04/2013 History of palpitations [Z87.898] 08/15/2013 CAD (coronary artery disease) [I25.10] 08/15/2013 Prolapse of vaginal sharma [N81.10] 02/22/2015 Prolapse of vaginal vault after hysterectomy [N*02/22/2015 Urinary, incontinence, stress female [N39.3] 02/22/2015 Rectocele [N81.6] 02/03/2016 Female stress incontinence [N39.3] 02/03/2016 Cystocele, midline [N81.11] 11/20/2016 Urge incontinence [N39.41] 11/20/2016 Overactive bladder [N32.81] 01/22/2017 Sepsis (HCC) [A41.9] 08/06/2024 08/08/2024 UTI (urinary tract infection) [N39.0] 08/06/2024 08/08/2024 Renal calculus [N20.0] 08/06/2024 Hypomagnesemia [E83.42] 08/06/2024 08/08/2024 Leukocytosis [D72.829] 08/06/2024 08/08/2024 Lactic acidosis [E87.20] 08/06/2024 08/08/2024 Elevated troponin [R79.89] 08/06/2024 08/08/2024 Left ureteral stone [N20.1] 08/06/2024 Multiple abrasions [T07.XXXA] 08/08/2024 Encounter Status:Closed by REY ROWAN on 08/28/24 [facility] OPERATIVE NOon 08-28-2024 OPERATIVE NO HNO ID: [id number] Author: REY ROWAN MD Service: Urology Author Type: Physician Type: Operative Report Filed: 08/28/2024 14:39 Note Text: UROLOGY SERVICE OPERATIVE NOTE LOG ID: [id number] Surgery/Procedure Date: 08/28/2024 Incision/Procedure Start Time: 2:14 PM Incision Close/Procedure End Time: 2:32 PM Patient Age: [age] year old Surgeon(s)/Proceduralist(s) and Lehr Tender(s): Surgeons and Role: * Rey Rowan MD - Primary * Christel Alvares MD - Resident - Assisting Physician Lehr Tender: Lesia Gallagher PA-C Anesthesia: General Preop Diagnosis: Pre-Op Diagnosis Codes: * Renal calculus, left [N20.0] Postop Diagnosis: Same as preoperative diagnosis Procedure: - Cystoscopy - Left stent removal - Left ureteroscopy - Laser lithotripsy - Basket stone extraction Estimated Blood Loss: 0 mls Accidental punctures or Lacerations: None Cultures: None Findings: [place]: 5 mm distal left ureter Lithotripsy Technique: fragmenting and basket extraction Laser: 365 micron Quanta 100W holmium laser laser Fragmentation: 1 J and 5 Hz, virtual basket; 1 J and 10 Hz, Magneto Irrigation: Simla bag; max pressure gravity Fluoroscopy: No fluoroscopy FOLLOWUP PLAN: Office follow up with RBUS and KUB will be arranged in 6 week(s). Specimens: ID Type Source Tests Collected by Time Destination 1 : Left ureteral stone Calculus Calculi or Calculus CALCULI ANALYSIS Rey Rowan MD 08/28/2024 2:18 PM Implantable devices: None Drains: None Complications: None CLINICAL PREAMBLE Cj Gillis is a 84 year old female who was found to have distal left ureteral stone, previously status post stent placement, and presents today for ureteroscopic management thereof. Signed informed consent was obtained prior to the procedure after the risks, complications and alternatives to the procedure were discussed. The risks and complications of ureteroscopy were discussed, including but not limited to bleeding, infection and potential ureteral injury. snf risk of potential ureteral stricture was also discussed. Further, the risks of ureteral stents and symptoms thereof were also discussed. The patient was given the opportunity to ask questions, and was satisfied with our discussion. Signed informed consent was obtained. PROCEDURE NOTE The patient was taken to the operating room and a preoperative huddle was performed identifying the patient. The patient was then induced under general anesthesia, positioned in low lithotomy and prepped and draped in the standard sterile fashion. Preoperative antibiotics (Ancef) were administered intravenously prior to the start of the procedure. SCDs were used for DVT prophylaxis and all pressure points were padded carefully. A time-out was then performed to confirm the patient, procedure and laterality. A 22-[place] cystoscope was advanced through the urethra and into the bladder. White cystoscopy was performed and there was no evidence of stones, tumors or mucosal abnormalities. Ureteral orifices were noted in orthotopic position. Ureteral stent was noted to be in place on the left side. There was mild encrustation noted. Stent graspers were then used to grasp the indwelling stent on the left side and remove it. The semi rigid ureteroscope was then advanced under direct vision to the level of the stone at the distal ureter. The stone was fragmented into pieces which were extracted with the [place] and sent for analysis. Ureter was patent and free from stone fragments or injury, so no stent was replaced. The bladder was emptied. Lidocaine jelly was injected into the urethra. The patient was then awoken from anesthesia and transferred to the recovery room in stable condition. No complications were encountered during the course of the procedure. SIGNATURE: Rey Rowan MD PATIENT NAME: Cj Gillis DATE: 08/28/2024 TIME: 2:35 PM PAGER: [phone] [facility] 08-27-2024 [facility] Telephone (AeroScout) CJ GILLIS ([id number]) 1940 F Date Time Provider Department 08/27/24 JET SMART During your visit today, we recorded the following information about you: Jet Smart LPN 08/27/2024 1:57 PM Signed Nurse at [facility] ([facility]) requesting medication instructions for tomorrow's surgery. Pt did not see PACC-seen in ED. Can you help? Norma Pleitez, INDIRA 08/27/2024 2:19 PM Signed [facility] PATIENT PREOPERATIVE INSTRUCTIONS Dr. Rey Rowan has scheduled you for your procedure at this surgery center: [facility]: [phone] -- [address] [facility] [address]. Please read below carefully for your personalized instructions. Dietary Restrictions: - Nothing to eat or drink after midnight except for a sip of water with approved medications. - Do not drink any alcohol after midnight the night before your surgery. Medications: Unless instructed differently below, stay on all of your medications until your surgery. If you start any new medications after today's visit, please contact your surgeon. May take all AM meds except HOLD Metformin and Tradjenta on day of surgery; Also hold Vitamin D 3 If you start any new medications after today's visit, please contact the surgeon's office. If you are currently using a [id number]-mwtn injectable or oral medication for diabetes or weight loss such as Dulaglutide (Trulicity), Exenatide (Byetta, Bydureon), Liraglutide (Victoza, Saxenda), Semaglutide (Ozempic, Wegovy, Rybelsus), or Tirzepatide (Mounjaro), the medicine should be stopped at least 7 days before surgery. These medicines can cause food to remain in your stomach for a very long time and increase the risks from surgery and anesthesia. Not stopping the medication for a long enough time may result in your surgery being rescheduled. Blood Thinning Medications: - Stop NSAIDS (Ibuprofen, Advil, Aleve, Motrin, Celebrex, Mobic, etc.) 7 days before surgery, as directed by your surgeon. - Stop Aspirin 7 days before surgery, as directed by your surgeon. - Stop ALL herbal and dietary supplements 7 days before surgery. Important Reminders: - Candy, mints, and tobacco products are NOT permitted the morning of surgery. - Hearing aids, dentures and glasses may be worn the morning of surgery. - NO jewelry, body piercings, makeup, hairpins or contacts are to be worn the day of surgery. If you develop symptoms such as a fever, cold, or flu, or have other changes to your health within TWO DAYS of scheduled surgery or the morning of surgery, please contact the surgery center above. Personal Belongings: -Please have photo ID and insurance cards. -If you do not have a copy of advance directives on file with us, please bring a copy with you on the day of surgery. - Leave ALL valuables and money at home or with family members. - Please bring high-quality footwear, such as sneakers, to the hospital for ambulating post-surgery. Arrival Time for Surgery: - The Surgery Center or hospital where you are having surgery will call the afternoon before surgery (or Sunday for Sunday surgery) with a scheduled arrival time. - If you have not heard by 4 pm, please contact the surgery center above. Please be aware that emergency situations arise, which may delay or change your surgical time. If this happens, we will notify you as soon as possible and regret any inconvenience. If you already have an Advance Directive, please fax a copy to [phone] or email to for it to be added to your chart. If you do not have an Advance Directive, you can find the appropriate form and more information at [email or web address]. We recommend that you complete the Advance Directive form found on the website and bring it with you the day of your surgery. It can be witnessed and scanned into your chart that day. Norma Pleitez RN Allergies As of Date: 08/27/2024 Noted Allergy Reaction CELECOXIB 08/04/2003 Comments: PALPITATIONS LIPITOR (ATORVASTATIN CALCIUM) 04/28/2009 14 - Other: See Comments Comments: Suspects lipitor decreases her hearing loss and tinnitus and liver spots. MORPHINE 08/04/2003 8 - GI Upset OPIOIDS-MEPERIDINE AND RELATED 08/04/2003 8 - GI Upset ROFECOXIB 08/04/2003 Comments: PALPITATIO;NS Date Reviewed: 08/06/2024 Reviewed by: Aditi Adam, INDIRA - Fully Assessed Prescriptions as of 08/27/2024 - tamsulosin (FLOMAX) 0.4 mg Take 1 capsule by mouth once daily. - rosuvastatin (CRESTOR) 10 mg tablet Take 1 tablet by mouth once daily. - cholecalciferol, vitamin D3, 125 mcg (5,000 unit) ODT Take 125 mcg by mouth once daily. - TRADJENTA 5 mg tab Take 5 mg by mouth once daily. - lisinopril (ZESTRIL) 5 mg tablet Take 5 mg by mouth once daily. - (more content not included)... [facility] 08-22-2024 [facility] Telephone (AKURFL) CJ GILLIS ([id number]) 1940 F Date Time Provider Department 08/22/24 REY ROWAN During your visit today, we recorded the following information about you: Jaxon Hansen 08/22/2024 10:12 AM Signed Patient had surgery on 08/06/24, cysto stent insertion Please advise for follow up. Patient's daughter, Guerita@#[phone]--ok to leave message. Thank you Radha Cummins 08/22/2024 3:42 PM Signed August 22, 2024 3:41 PM Patient is scheduled for PAT on : N/A Surgery at [place] with Dr. Rowan on 08/28/2024 Patient is aware of date, time, location, and pre op instructions. Patient had no further questions at this time. Surgical information has been sent to patient via [employer]. Radha Mancia Allergies As of Date: 08/22/2024 Noted Allergy Reaction CELECOXIB 08/04/2003 Comments: PALPITATIONS LIPITOR (ATORVASTATIN CALCIUM) 04/28/2009 14 - Other: See Comments Comments: Suspects lipitor decreases her hearing loss and tinnitus and liver spots. MORPHINE 08/04/2003 8 - GI Upset OPIOIDS-MEPERIDINE AND RELATED 08/04/2003 8 - GI Upset ROFECOXIB 08/04/2003 Comments: PALPITATIO;NS Date Reviewed: 08/06/2024 Reviewed by: Aditi Adam RN - Fully Assessed Reason for Visit: Patient Question [1477] Prescriptions as of 08/22/2024 - tamsulosin (FLOMAX) 0.4 mg Take 1 capsule by mouth once daily. - rosuvastatin (CRESTOR) 10 mg tablet Take 1 tablet by mouth once daily. - cholecalciferol, vitamin D3, 125 mcg (5,000 unit) ODT Take 125 mcg by mouth once daily. - TRADJENTA 5 mg tab Take 5 mg by mouth once daily. - lisinopril (ZESTRIL) 5 mg tablet Take 5 mg by mouth once daily. - loperamide HCl (IMODIUM) 2 mg tab Take 2 mg by mouth as needed (diarrhea). - LORazepam (ATIVAN) 0.5 mg Take 0.5 mg by mouth two times a day. - metoprolol succinate ER (TOPROL XL) 25 mg 24 hr tablet Take 12.5 mg by mouth once daily. - Mirtazapine (REMERON) 7.5 mg tablet Take 7.5 mg by mouth daily at bedtime. - sertraline (ZOLOFT) 50 mg tablet Take 50 mg by mouth once daily. - DULoxetine (CYMBALTA) 60 mg capsule Take 60 mg by mouth once daily. - metFORMIN ER (FORTAMET) 1,000 mg 24 hr tablet Take 1,000 mg by mouth two times a day. - famotidine (PEPCID) 20 mg tablet Take 20 mg by mouth once daily. - loratadine (CLARITIN) 10 mg tablet Take 10 mg by mouth once daily. - traMADol (ULTRAM) 50 mg tablet Take 1-2 tablets by mouth twice daily for 90 days. as directed - COMPOUNDED PRESCRIPTION If patient presents with allergic reaction, please check tryptase level and fax results to Dr. Sprague at [phone] - Lancets lancets Test Two times a day. Insulin Dep? No E11.9 DM 2 - alcohol swabs (ALCOHOL PADS) padm Test Two times a day. Insulin Dep? No E11.9 DM 2 - blood sugar diagnostic (BLOOD GLUCOSE TEST) test strip Test 2 times daily, Insulin Dep? No E11.9 DM 2 - acetaminophen (TYLENOL EXTRA STRENGTH) 500 mg tablet Take 500-1,000 mg by mouth every 8 hours as needed. Problem List As Of Date 08/22/2024 Noted Resolved Personal History of Venous Thrombosis and Embol*02/04/2003 DM type 2 (diabetes mellitus, type 2) (HCC) [E1*08/04/2003 Essential hypertension, benign [I10] 08/04/2003 Generalized osteoarthrosis of hand [M15.9] 02/12/2007 Hyperlipidemia [E78.5] 04/28/2009 Rheumatic Fever [I00] 04/28/2009 Irregular Heart Beat [I49.9] 04/28/2009 TB (Tuberculosis) [A15.9] 04/28/2009 Arthritis of foot [M19.079] 02/01/2010 Family history of pulmonary embolism [Z82.49] 06/10/2010 Esophagitis, unspecified [K20.90] 04/11/2012 Acute gastritis without mention of hemorrhage [*04/11/2012 OA (osteoarthritis) [M19.90] 07/04/2013 History of palpitations [Z87.898] 08/15/2013 CAD (coronary artery disease) [I25.10] 08/15/2013 Prolapse of vaginal sharma [N81.10] 02/22/2015 Prolapse of vaginal vault after hysterectomy [N*02/22/2015 Urinary, incontinence, stress female [N39.3] 02/22/2015 Rectocele [N81.6] 02/03/2016 Female stress incontinence [N39.3] 02/03/2016 Cystocele, midline [N81.11] 11/20/2016 Urge incontinence [N39.41] 11/20/2016 Overactive bladder [N32.81] 01/22/2017 Sepsis (HCC) [A41.9] 08/06/2024 08/08/2024 UTI (urinary tract infection) [N39.0] 08/06/2024 08/08/2024 Renal calculus [N20.0] 08/06/2024 Hypomagnesemia [E83.42] 08/06/2024 08/08/2024 Leukocytosis [D72.829] 08/06/2024 08/08/2024 Lactic acidosis [E87.20] 08/06/2024 08/08/2024 Elevated troponin [R79.89] 08/06/2024 08/08/2024 Left ureteral stone [N20.1] 08/06/2024 Multiple abrasions [T07.XXXA] 08/08/2024 Encounter Status:Closed by JAXON HANSEN on 08/22/24 Normal [facility] ANES POSTPROC EVALon 025 ANES POSTPROC EVAL HNO ID: [id number] Author: DEMARIO NICHOLSON MD Service: Anesthesiology Author Type: Physician Type: Anesthesia Postprocedure Evaluation Filed: 08/08/2024 08:05 Note Text: POST ANESTHESIA EVALUATION NOTE : 1940 Procedure Summary Date: 08/06/24 Room / [facility]: [facility] [facility] Anesthesia Start: 1833 Anesthesia Stop: 1906 Procedure: CYSTOSCOPY, INSERTION STENT URETERAL J (Left: Abdomen) Diagnosis: Ureteral calculus (Ureteral calculus [N20.1]) Surgeons: Rey Rowan MD Responsible Provider: Demario Nicholson MD Anesthesia Type: MAC ASA Status: 3 - Emergent Anesthesia Type: MAC Last Vitals Vitals Value Taken Time BP 120/50 08/06/241999 Temp 37.5 ?C (99.5 ?F) 08/06/241944 HR SpO2 88 08/06/242016 Resp 22 08/06/242015 SpO2 97 % 08/06/242016 Vitals shown include unfiled device data. Post Anesthesia Patient Status Patient Evaluation: bedside. Neurological Status: aware and responsive. Pulmonary Status: breathing comfortably on supplemental oxygen Airway Control: returned to baseline unsupported. Cardiovascular Status: stable. Pain Management: clinically adequate Postoperative Hydration: acceptable. Intraoperative Events: no significant anesthesia events Post Operative Nausea/Vomiting Status: no significant post operative nausea or vomiting Recommendation: continue current plan of care. Anesthesia Observations No Documentation SIGNATURE: Demario Nicholson MD PATIENT NAME: Cj Gillis DATE: August 08, 2024 TIME: 8:04 AM CSN: [id number] Normal [facility] Basic metabolic 2000 panelon 08-08-2024 Anion gap [Moles/Vol] 12 mmol/L Normal 8-15 [facility] Comment on above: Order Comment: Speci men Type: BLOOD SPECIMEN Ordering Facility: [facility] Address: [address] [place] [address] Performed By: #### 3 2693-4 #### [facility] CLIA [id number] 1 [place] [address] [place] Calcium [Mass/Vol] 9.1 mg/dL Normal 8.5-10.2 [facility] Comment on above: Order Comment: Speci men Type: BLOOD SPECIMEN Ordering Facility: [facility] Address: [address] [place] [address] Performed By: #### 3 2693-4 #### [facility] CLIA [id number] [address] [place] Chloride [Moles/Vol] 102 mmol/L Normal 98-107 [facility] Comment on above: Order Comment: Speci men Type: BLOOD SPECIMEN Ordering Facility: [facility] Address: [address] [place] [address] Performed By: #### 3 2693-4 #### [facility] CLIA [id number] 1 [place] [address] [place] CO2 [Moles/Vol] 24 mmol/L Normal 22-30 [facility] Comment on above: Order Comment: Speci men Type: BLOOD SPECIMEN Ordering Facility: [facility] Address: [address] [place] [address] Performed By: #### 3 2693-4 #### [facility] CLIA [id number] 1 [place] [address] [place] Creatinine [Mass/Vol] 0.67 mg/dL Normal 0.58-0.96 [facility] Comment on above: Order Comment: Speci men Type: BLOOD SPECIMEN Ordering Facility: [facility] Address: [address] [place] [address] Performed By: #### 3 2693-4 #### [facility] CLIA [id number] 1 [place] [address] [place] Creatinine and Glomerular filtration rate.predicted panel (S/P/Bld) 86 mL/min/1.73m??? Normal >=60 [facility] Comment on above: Order Comment: Alex ruffin Type: BLOOD SPECIMEN Ordering Facility: [facility] Address: [address] [place] [address] Result Comment: Ashli mated Glomerular Filtration Rate (eGFR) is calculated using the 2020 CKD-EPI creatinine equation. This equation utilizes serum creatinine, sex, and age as parameters. The creatinine assay has traceable calibration to isotope dilution-mass spectrometry. Refer to KDIGO guidelines for clinical interpretation. In patients with unstable renal function, e.g. those with acute kidney injury, the eGFR may not accurately reflect actual GFR. Performed By: #### 3 2693-4 #### [facility] CLIA [id number] 1 [place] [address] [place] Glucose [Mass/Vol] 151 mg/dL High 74-99 [facility] Comment on above: Order Comment: Alex ruffin Type: BLOOD SPECIMEN Ordering Facility: [facility] Address: [address] [place] [address] Result Comment: The [place] Diabetes Association (ADA) provides guidance for cutoff values for fasting glucose and random glucose. The ADA defines fasting as no caloric intake for at least 8 hours. Fasting plasma glucose results between 100 to 125 mg/dL indicate increased risk for diabetes (prediabetes). Fasting plasma glucose results greater than or equal to 126 mg/dL meet the criteria for diagnosis of diabetes. In the absence of unequivocal hyperglycemia, results should be confirmed by repeat testing. In a patient with classic symptoms of hyperglycemia or hyperglycemic crisis, random plasma glucose results greater than or equal to 200 mg/dL meet the criteria for diagnosis of diabetes. Reference: Standards of Medical Care in Diabetes 2016, [place] Diabetes Association. Diabetes Care. 2016.39(Suppl 1). Performed By: #### 3 2693-4 #### [facility] CLIA [id number] [address] [place] [address] [place] Potassium [Moles/Vol] 3.5 mmol/L Low 3.7-5.1 [facility] Comment on above: Order Comment: Speci men Type: BLOOD SPECIMEN Ordering Facility: [facility] Address: [address] [place] [address] Performed By: #### 3 2693-4 #### [facility] CLIA [id number] [address] [facility] Sodium [Moles/Vol] 138 mmol/L Normal 136-144 [facility] Comment on above: Order Comment: Speci men Type: BLOOD SPECIMEN Ordering Facility: [facility] Address: [address] [place] [address] Performed By: #### 3 2693-4 #### [facility] CLIA [id number] [address] [place] Urea nitrogen [Mass/Vol] 12 mg/dL Normal 7-21 [facility] Comment on above: Order Comment: Speci men Type: BLOOD SPECIMEN Ordering Facility: [facility] Address: [address] [place] [address] Performed By: #### 3 2693-4 #### [facility] CLIA [id number] [address] [place] CBC panel Auto (Bld)on 08-08 Erythrocyte distribution width (RBC) [Ratio] 11.9 % Normal 11.5-15.0 [facility] Comment on above: Order Comment: Speci men Type: BLOOD SPECIMEN Ordering Facility: [facility] Address: [address] [place] [address] Performed By: #### 5 8410-2 #### [facility] CLIA [id number] [address] [place] Hematocrit (Bld) [Volume fraction] 34.3 % Low 36.0-46.0 [facility] Comment on above: Order Comment: Speci men Type: BLOOD SPECIMEN Ordering Facility: [facility] Address: [address] [place] [address] Performed By: #### 5 8410-2 #### [facility] CLIA [id number] [address] [place] [address] [place] Hemoglobin (Bld) [Mass/Vol] 10.8 g/dL Low 11.5-15.5 [facility] Comment on above: Order Comment: Speci men Type: BLOOD SPECIMEN Ordering Facility: [facility] Address: [address] [place] [address] Performed By: #### 5 8410-2 #### [facility] CLIA [id number] [address] MCH (RBC) [Entitic mass] 29.9 pg Normal 26.0-34.0 [facility] Comment on above: Order Comment: Speci men Type: BLOOD SPECIMEN Ordering Facility: [facility] Address: [address] [place] [address] Performed By: #### 5 8410-2 #### [facility] CLIA [id number] [address] [facility] MCHC (RBC) [Mass/Vol] 31.5 g/dL Normal 30.5-36.0 [facility] Comment on above: Order Comment: Speci men Type: BLOOD SPECIMEN Ordering Facility: [facility] Address: [address] [place] [address] Performed By: #### 5 8410-2 #### [facility] CLIA [id number] [address] MCV (RBC) [Entitic vol] 95.0 fL Normal 80.0-100.0 [facility] Comment on above: Order Comment: Speci men Type: BLOOD SPECIMEN Ordering Facility: [facility] Address: [address] [place] [address] Performed By: #### 5 8410-2 #### [facility] CLIA [id number] [address] Nucleated RBC (Bld) [#/Vol] 10*3/uL Normal <0.01 [facility] Comment on above: Order Comment: Speci men Type: BLOOD SPECIMEN Ordering Facility: [facility] Address: [address] [place] [address] Performed By: #### 5 8410-2 #### [facility] CLIA [id number] [address] [place] Platelet mean volume (Bld) [Entitic vol] 10.6 fL Normal 9.0-12.7 [facility] Comment on above: Order Comment: Speci men Type: BLOOD SPECIMEN Ordering Facility: [facility] Address: [address] [place] [address] Performed By: #### 5 8410-2 #### [facility] CLIA [id number] [address] [place] Platelets (Bld) [#/Vol] 221 10*3/uL Normal 150-400 [facility] Comment on above: Order Comment: Speci men Type: BLOOD SPECIMEN Ordering Facility: [facility] Address: [address] [place] [address] Performed By: #### 5 8410-2 #### [facility] CLIA [id number] [address] [place] RBC (Bld) [#/Vol] 3.61 10*6/uL Low 3.90-5.20 [facility] Comment on above: Order Comment: Speci men Type: BLOOD SPECIMEN Ordering Facility: [facility] Address: [address] [place] [address] Performed By: #### 5 8410-2 #### [facility] CLIA [id number] [address] [place] WBC (Bld) [#/Vol] 8.95 10*3/uL Normal 3.70-11.00 [facility] Comment on above: Order Comment: Speci men Type: BLOOD SPECIMEN Ordering Facility: [facility] Address: [address] [place] [address] Performed By: #### 5 8410-2 #### [facility] CLIA [id number] [address] CNDSon 08-08-2024 CNDS HNO ID: [id number] Author: BARNEY MARIE MD Service: Hospital Medicine Author Type: Physician Type: Discharge Summary Filed: 08/08/2024 14:33 Note Text: DISCHARGE SUMMARY PATIENT NAME: Cj Gillis Code Status: DNR-CCA Highest Readmission Risk Score: 16 The 30 day readmissions risk score is derived from an internally validated risk model which evaluates patient level characteristics, utilization history, medication orders and lab results up until the day of discharge. Patients with a score of 39 or above are considered highest risk for readmission. Specific patient level drivers will be listed at the bottom of the summary. Admission Information Admission Information ADMIT DATE: 08/06/2024 DISCHARGE DATE: 08/08/2024 MY DOCTORS AND MEDICAL TEAM: My Main Hospital Doctor: Barney Marie MD Primary Care Provider: Carlos Herron MD My Medical Team Members: Treatment Team: Attending Provider: Barney Marie MD Primary Service: [facility] MY CONDITION AT DISCHARGE: Stable REASON I WAS IN THE HOSPITAL: Fall and urinary stone SUMMARY OF WHAT HAPPENED WHILE I WAS IN THE HOSPITAL: 84-year-old female with type 2 diabetes mellitus, CAD, hypertension, hyperlipidemia, osteoarthritis, urge incontinence, history of prior DVT and PE not on any anticoagulation at this time, dementia with a baseline mentation of AANDO x 1 who presented to [facility] ED for renal calculus and fall. Concern for UTI prior to presentation for which she received antibiotics at and also at ER prior to transfser to [facility]. Imaging on admission with L sided stone with evidence of mild left hydroureteronephrosis with left perinephric fat stranding. Patient presented with septic picture with suspicion for urinary source of infection and was admitted to medicine for management of complicated UTI with urology on consult. She underwent left sided ureteral stent insertion by urology and was started on tamsulosin and continued on antibioitcs (Ceftriaxone) with resolution of leukocytosis and normalization of vital signs. Patient remained clinically stable and at baseline mentaiton. Evaluated by PT/OT who recommended discharged to extended care facility. She will be discharged on oral antibiotics to complete antibioitc course and follow up with urology as outpatient for definitive stone management. OTHER PROBLEMS/DIAGNOSIS: Principal Problem (Resolved): Sepsis (HCC) Active Problems: DM type 2 (diabetes mellitus, type 2) (HCC) Essential hypertension, benign Hyperlipidemia OA (osteoarthritis) CAD (coronary artery disease) Urinary, incontinence, stress female Renal calculus Left ureteral stone Multiple abrasions Resolved Problems: UTI (urinary tract infection) Hypomagnesemia Leukocytosis Lactic acidosis Elevated troponin OPERATIONS PERFORMED WHILE IN THE HOSPITAL: None IMPORTANT TEST/PROCEDURES: left sided ureteral stent insertion TEST RESULTS NOT AVAILABLE AT THIS TIME: Final blood culture results Discharge Disposition Discharge Disposition: Other/Not Listed Additional Provider to Provider Information: Treatment Team: Attending Provider: Barney Marie MD Primary Service: STEFANO SERRANO FINAL DIAGNOSIS: Complicated Urinary tract infection Active Hospital Problems Diagnosis POA Hyperlipidemia Yes Essential hypertension, benign Yes DM type 2 (diabetes mellitus, type 2) (HCC) Yes Multiple abrasions Unknown Renal calculus Yes Left ureteral stone Unknown Urinary, incontinence, stress female Yes CAD (coronary artery disease) Yes OA (osteoarthritis) Yes Resolved Hospital Problems Diagnosis POA Sepsis (HCC) Yes UTI (urinary tract infection) Yes Hypomagnesemia Yes Leukocytosis Yes Lactic acidosis Yes Elevated troponin Yes Transitions of Care Critical Issues: LABS AND PROCEDURES PENDING AT DISCHARGE: Final blood cultures FOLLOW-UP APPOINTMENTS ALREADY SCHEDULED WITH A [facility] PROVIDER: No future appointments. ALLERGIES Allergen Reactions Celecoxib PALPITATIONS Lipitor [Atorvastat* Other: See Comments Suspects lipitor decreases her hearing loss and tinnitus and liver spots. Morphine GI Upset Opioids-Meperidine * GI Upset Rofecoxib PALPITATIO;NS DISCHARGE MEDICATION: Medication List START taking these medications cefpodoxime 200 mg tablet Commonly known as: VANTIN Take 1 tablet by mouth two times a day for 10 days. tamsulosin 0.4 mg Commonly known as: FLOMAX Take 1 capsule by mouth once daily. Start taking on: August 09, 2024 CHANGE how you take these medications traMADol 50 mg tablet Commonly known as: ULTRAM Take 1-2 tablets by mouth twice daily for 90 days. as directed What changed: how much to take when to take this reasons to take this CONTINUE taking these medications alcohol swabs Commonly known as: ALCOHOL PADS Test Two times a day. Insulin Dep? No E11.9 DM (more content not included)... Normal [facility] CONSULT PROGon 08-08-2024 CONSULT PROG HNO ID: [id number] Author: ART MEANS APRN.CNP Service: Wound/Ostomy Author Type: Nurse Practitioner Type: Consult Progress Note Filed: 08/08/2024 13:34 Note Text: Summary: In-patient wound care WOUND CARE SERVICE CONSULT TESTS SUPERINTENDENT NOTE SERVICE DATE: 08/08/2024 SERVICE TIME: 1044 REASON FOR CONSULT: upper back wounds. Wound Consult (From admission, onward) Start Ordered 08/07/24 1030 WOUND CARE CONSULT ([place], [place]) ONCE Electronically Signed By: Barney Marie MD [ ] 08/07/24 1027 My final recommendations will be communicated back to the requesting physician by way of shared Medical record or letter to requesting physician via US mail. CHIEF COMPLAINT: upper back wounds. Subjective HISTORY OF PRESENT ILLNESS: Ms. 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 PMH DM2, CAD, HTN, DVT, PE, HLD. PERTINENT REVIEW OF SYSTEMS: GENERAL: denies fever PAIN ASSESSMENT: endorses 08/09 pain to upper back SKIN: wounds on upper back RESPIRATORY: denies SOB GI/: denies N/V PAST MEDICAL HISTORY Diagnosis Date Atrophic gastritis without mention of hemorrhage BENIGN HYPERTENSION 08/04/2003 Diarrhea Diverticulosis of colon (without mention of hemorrhage) DVT (deep venous thrombosis) (HCC) Esophagitis, unspecified Gall bladder disease GEN OSTEOARTHROS-HAND Heart murmur Hyperlipidemia Irregular heart beat 04/28/2009 JOINT PAIN-ANKLE Other and unspecified hyperlipidemia Pain in limb Peripheral vascular disease, unspecified h/o DVT/PE PERS HX VENOUS THROMB/EMBOLISM 02/04/2003 Pulmonary embolism (HCC) late 1980s around the time of foot surgery Rheumatic fever TB (tuberculosis) 04/28/2009 Age 17-18 Type II or unspecified type diabetes mellitus without mention of complication, not stated as uncontrolled Unspecified essential hypertension Unspecified pulmonary tuberculosis, confirmation unspecified h/o TB PAST SURGICAL HISTORY Procedure Laterality Date ANTERIOR COLPORRAPHY RPR CYSTOCELE W/CYSTO 1996 cystocele/rectocele/bladder susp ARTHROSCOPY KNEE DIAGNOSTIC W/WO SYNOVIAL BX SPX Arthroscopy, knee ARTHRP KNE CONDYLEANDPLATU MEDIALANDLAT COMPARTMENTS 02/10/03 bilateral total knee arthroplasty CHOLECYSTECTOMY remote COLONOSCOPY FLX DX W/COLLJ SPEC WHEN PFRMD 04/10/05 Colonoscopy COLONOSCOPY FLX DX W/COLLJ SPEC WHEN PFRMD 04/11/12 Colonoscopy repeat 10 years COLONOSCOPY FLX DX W/COLLJ SPEC WHEN PFRMD 07/31/2018 Colonoscopy COLPOPEXY, VAGINAL EXTRAPERITONEAL 02/02/16 ESOPHAGOGASTRODUODENOSCOPY TRANSORAL DIAGNOSTIC 04/11/12 EGD PAST SURGICAL HISTORY OF Cataract surgery, bilateral 2012 Social History Tobacco Use Smoking status: Never Smokeless tobacco: Never Vaping Use Vaping status: Never Used Substance Use Topics Alcohol use: No Drug use: No FAMILY HISTORY Problem Relation Age of Onset Ischemic Heart Disease Father FROM BLOOD CLOT AFTER CABG other (hyperlipidemia [Other]) Father DVT Mother varicois veins None Brother MEDICATIONS: Current Facility-Administered Medications Medication Dose Route Frequency NaCl 0.9% iv flush bag 20 mL INTRAVENOUS PRN tamsulosin 0.4 mg cap(s) (FLOMAX) 0.4 mg ORAL DAILY rosuvastatin 10 mg tab(s) (CRESTOR) 10 mg ORAL DAILY famotidine 20 mg tab(s) (PEPCID) 20 mg ORAL DAILY cefTRIAXone iv piggyback 1 g in dextrose (iso-osmotic) 50 mL (ROCEPHIN) 1 g INTRAVENOUS q 24 H acetaminophen 650 mg tab(s) (TYLENOL) 650 mg ORAL q 4 H PRN oxyCODONE IR 5 mg tab(s) (ROXICODONE) 5 mg ORAL q 4 H PRN polyethylene glycol 3350 17 g packet 17 g ORAL DAILY PRN dextrose 15 gram/32 mL 15 g (TRUEPLUS) 15 g ORAL PRN Or glucagon 1 mg injection 1 mg INTRAMUSCULAR PRN Or dextrose 10% iv bolus 12.5 g INTRAVENOUS PRN LORazepam 0.5 mg tab(s) (ATIVAN) 0.5 mg ORAL BID lisinopril 5 mg tab(s) (ZESTRIL) 5 mg ORAL DAILY metoprolol succinate ER 12.5 mg tab(s) (TOPROL XL) 12.5 mg ORAL DAILY DULoxetine 60 mg cap(s) (CYMBALTA) 60 mg ORAL DAILY mirtazapine 7.5 mg (REMERON) 7.5 mg ORAL AT BEDTIME sertraline 50 mg tab(s) (ZOLOFT) 50 mg ORAL DAILY melatonin 6 mg tab(s) 6 mg ORAL DAILY (8 PM) SITagliptin phosphate 100 mg tab(s) (JANUVIA) 100 mg ORAL DAILY insulin lispro injection (rapid acting) (ADMElog) SUBCUTANEOUS w MEALS AND HS prochlorperazine 5 mg injection (COMPAZINE) 5 mg INTRAVENOUS q 6 H PRN ALLERGIES Allergen Reactions Celecoxib PALPITATIONS Lipitor [Atorvastat* Other: See Comments Suspects lipitor decreases her hearing loss and tinnitus and liver spots. Morphine GI Upset Opioids-Meperidine * GI Upset Rofecoxib PALPITATIO;NS Objective PHYSICAL EXAM: BP 125/54 Pulse 74 Temp 36.7 ?C (98.1 ?F) (Oral) Resp (more content not included)... Normal [facility] Magnesium [Mass/Vol] 1.7 mg/dL Normal 1.7-2.3 [facility] Comment on above: Order Comment: Speci men Type: BLOOD SPECIMEN Ordering Facility: [facility] Address: [address] [place] [address] Performed By: #### 3 2693-4 #### [facility] CLIA [id number] [address] [place] [address] [place] Phosphate SerPl-ncon 08-08 Phosphate [Mass/Vol] 2.6 mg/dL Low 2.7-4.8 [facility] Comment on above: Order Comment: Speci men Type: BLOOD SPECIMEN Ordering Facility: [facility] Address: [address] [place] [address] Performed By: #### 3 2693-4 #### [facility] CLIA [id number] [address] [facility] THERAPY NTon 08-08-2024 THERAPY NT HNO ID: [id number] Author: ARACELY CHOWDARY, PT Service: Physical Therapy Author Type: Physical Therapist Type: Therapy (PT/OT/Speech/Resp) Filed: 08/08/2024 09:57 Note Text: Physical Therapy Evaluation Summary SERVICE DATE: 08/08/2024 SERVICE TIME: 836 to 900 ROOM: [id number] PT 6 Clicks Score: 13 DISCHARGE RECOMMENDATIONS [facility] Recommended Discharge Disposition Comments: with continued therapies and hands on assist for mobility ASSESSMENT Response to Therapy Interventions: Good Participation in Activities, Cognitive Deficits Patient requiring hands on assist for mobility. Unsteady, retropulsive lean. Anticipate need for continued therapy at discharge but patient may do better in her familiar environment (memory care). PRECAUTIONS Fall Risk, Lines/Tubes/Drains IV, external catheter CURRENT HOSPITAL COURSE Patient admitted following unwitnessed fall at [facility], with imaging negative for fracture but finding of left UVJ stone. Also with UTI/sepsis. Relevant Past Medical History: CAD, HTN,OA, urge incontinence, h/o DVT/PE; Dementia-Ox1 baseline. HOME LIVING Patient Lives With: Facility Care ([facility]; [facility]) Assistance Available: 24-Hour (staff and spouse) Entry To Home: No Stairs Tub/Shower Type: walk in with seat/bars ; staff assists Laundry: Provided for patient Equipment Owned: Walker- Wheeled, Wheelchair- Manual PRIOR FUNCTIONAL LEVEL Required Assistance Assistance Required With: Ambulation, Cleaning, Laundry, Meals, Medication Management, Safety, Self Care, Shopping, Transportation Patient resides in memory care unit at [facility]. Generally ambulates without device, or with wheeled walker as needed with min/CGA. Occasionally uses w/c when fatigued, distances lately. Feeds self with set up, can complete grooming with min assist but requires extensive assist with other self care for safety and due to cognitive deficits. Meals/IADL provided for patient, as well as medication management. SUBJECTIVE Agreeable to PT THERAPY DIAGNOSIS Reduced mobility-other, Muscle Weakness (generalized) TREATMENT INTERVENTIONS Evaluation, Therapeutic Activity (83620) $ Evaluation-Moderate (45190) Billed Units: 1 unit Therapeutic Activity (56709) Treatment Minutes: 9 $ Therapeutic Activity (60055) Billed Units: 1 unit Education regarding importance of OOB, to chair, ambulate in room to regulate BP, improve lung function and overall blood flow, and to aid with bodily functions somewhat dependent on gravity. Patient incontinent of urine, required multiple sit to stand transfers for pericare, to replace incontinence underwear. Frequent cues for safety and sequence for all mobility. Timed Code Treatment (minutes): 9 Skilled Treatment Time (minutes): 24 TRAINING AND EDUCATION PROVIDED Anatomy and Impact on Deficits, Assistive Device Use, Benefits of In-Hospital Mobility, Discharge Planning, Gait Pattern, Reduction of Deviations, Falls Prevention, Role of Physical Therapy, Transfers, Standing Balance THERAPEUTIC SKILLS USED Cues for Sequencing/Proper Technique for Activity, Cuing Verbal, Movement Facilitation, Muscle Activation Facilitation, Physical Assist FUNCTIONAL STATUS Bed Mobility Supine To Sit: Minimal Assistance Transfers Sit To Stand: Moderate Assistance Stand To Sit: Moderate Assistance Bed to Chair Moderate Assistance Bed To Chair Transfer Type: Stand Pivot Bed To Chair Transfer Equipment: Gait Belt Patient with significant backward lean despite cues for more upright posture, unsteady while taking 4-5 steps bed to chair Gait Stairs Range of Motion: WFL Strength: Strength Limitation Comments Strength Limitation Comments: BLEs grossly 4-/5 GOALS Able to Perform HEP with: Verbal Cues Only Transfer Supine to/from Sit with: Contact Guard Assistance Transfer Sit to/from Stand with: Contact Guard Assistance Ambulate with: Contact Guard Assistance Distance: 10 feet intervals Device: Wheeled Walker Rehab Potential: Fair PLAN PT Frequency: 3 Times Per Week (2-3) Treatment Interventions: Education, Strengthening, Functional Mobility Training, Balance Training SIGNATURE: Aracely Chowdary PT PATIENT NAME: Cj Gillis DATE: August 08, 2024 TIME: 9:55 AM Normal [facility] Basic metabolic 2000 panelon 08-07-2024 Anion gap [Moles/Vol] 8 mmol/L Normal 8-15 [facility] Comment on above: Order Comment: Speci men Type: BLOOD SPECIMEN Ordering Facility: [facility] Address: [address] [place] [address] Performed By: #### 3 2693-4 #### [facility] CLIA [id number] [address] [place] [address] [place] Calcium [Mass/Vol] 8.5 mg/dL Normal 8.5-10.2 [facility] Comment on above: Order Comment: Speci men Type: BLOOD SPECIMEN Ordering Facility: [facility] Address: [address] [place] [address] Performed By: #### 3 2693-4 #### [facility] CLIA [id number] [address] [place] [address] [place] Chloride [Moles/Vol] 101 mmol/L Normal 98-107 [facility] Comment on above: Order Comment: Speci men Type: BLOOD SPECIMEN Ordering Facility: [facility] Address: [address] [place] [address] Performed By: #### 3 2693-4 #### [facility] CLIA [id number] [address] [place] CO2 [Moles/Vol] 27 mmol/L Normal 22-30 [facility] Comment on above: Order Comment: Speci men Type: BLOOD SPECIMEN Ordering Facility: [facility] Address: [address] [place] [address] Performed By: #### 3 2693-4 #### [facility] CLIA [id number] [address] [place] Creatinine [Mass/Vol] 0.80 mg/dL Normal 0.58-0.96 [facility] Comment on above: Order Comment: Speci men Type: BLOOD SPECIMEN Ordering Facility: [facility] Address: [address] [place] [address] Performed By: #### 3 2693-4 #### [facility] CLIA [id number] [address] [place] Creatinine and Glomerular filtration rate.predicted panel (S/P/Bld) 73 mL/min/1.73m??? Normal >=60 [facility] Comment on above: Order Comment: Speci men Type: BLOOD SPECIMEN Ordering Facility: [facility] Address: [address] [place] [address] Result Comment: Ashli mated Glomerular Filtration Rate (eGFR) is calculated using the 2020 CKD-EPI creatinine equation. This equation utilizes serum creatinine, sex, and age as parameters. The creatinine assay has traceable calibration to isotope dilution-mass spectrometry. Refer to KDIGO guidelines for clinical interpretation. In patients with unstable renal function, e.g. those with acute kidney injury, the eGFR may not accurately reflect actual GFR. Performed By: #### 3 2693-4 #### [facility] CLIA [id number] [address] [place] [address] [place] Glucose [Mass/Vol] 153 mg/dL High 74-99 [facility] Comment on above: Order Comment: Alex ruffin Type: BLOOD SPECIMEN Ordering Facility: [facility] Address: [address] [place] [address] Result Comment: The [place] Diabetes Association (ADA) provides guidance for cutoff values for fasting glucose and random glucose. The ADA defines fasting as no caloric intake for at least 8 hours. Fasting plasma glucose results between 100 to 125 mg/dL indicate increased risk for diabetes (prediabetes). Fasting plasma glucose results greater than or equal to 126 mg/dL meet the criteria for diagnosis of diabetes. In the absence of unequivocal hyperglycemia, results should be confirmed by repeat testing. In a patient with classic symptoms of hyperglycemia or hyperglycemic crisis, random plasma glucose results greater than or equal to 200 mg/dL meet the criteria for diagnosis of diabetes. Reference: Standards of Medical Care in Diabetes 2016, [place] [employer] Association. Diabetes Care. 2016.39(Suppl 1). Performed By: #### 3 2693-4 #### [facility] CLIA [id number] [address] [place] [address] [place] Potassium [Moles/Vol] 3.8 mmol/L Normal 3.7-5.1 [facility] Comment on above: Order Comment: Alex ruffin Type: BLOOD SPECIMEN Ordering Facility: [facility] Address: [address] [place] [id number] Performed By: #### 3 2693-4 #### [facility] CLIA [id number] [address] [place] [address] [place] Sodium [Moles/Vol] 136 mmol/L Normal 136-144 [facility] Comment on above: Order Comment: Speci men Type: BLOOD SPECIMEN Ordering Facility: [facility] Address: [address] [place] [address] Performed By: #### 3 2693-4 #### [facility] CLIA [id number] [address] STATES [facility] Urea nitrogen [Mass/Vol] 16 mg/dL Normal 7-21 [facility] Comment on above: Order Comment: Speci men Type: BLOOD SPECIMEN Ordering Facility: [facility] Address: [address] [place] [address] Performed By: #### 3 2693-4 #### [facility] CLIA [id number] [address] OF [facility] CBC panel Auto (Bld)on 08-07 Erythrocyte distribution width (RBC) [Ratio] 12.3 % Normal 11.5-15.0 [facility] Comment on above: Order Comment: Speci men Type: BLOOD SPECIMEN Ordering Facility: [facility] Address: [address] [place] [address] Performed By: #### 3 2693-4 #### [facility] CLIA [id number] [address] STATES OF [facility] Hematocrit (Bld) [Volume fraction] 30.1 % Low 36.0-46.0 [facility] Comment on above: Order Comment: Speci men Type: BLOOD SPECIMEN Ordering Facility: [facility] Address: [address] [place] [address] Performed By: #### 3 2693-4 #### [facility] CLIA [id number] [address] STATES OF [facility] Hemoglobin (Bld) [Mass/Vol] 9.8 g/dL Low 11.5-15.5 [facility] Comment on above: Order Comment: Speci men Type: BLOOD SPECIMEN Ordering Facility: [facility] Address: [address] [place] [address] Performed By: #### 3 2693-4 #### [facility] CLIA [id number] [address] MCH (RBC) [Entitic mass] 30.4 pg Normal 26.0-34.0 [facility] Comment on above: Order Comment: Speci men Type: BLOOD SPECIMEN Ordering Facility: [facility] Address: [address] [place] [address] Performed By: #### 3 2693-4 #### [facility] CLIA [id number] [address] MCHC (RBC) [Mass/Vol] 32.6 g/dL Normal 30.5-36.0 [facility] Comment on above: Order Comment: Speci men Type: BLOOD SPECIMEN Ordering Facility: [facility] Address: [address] [place] [address] Performed By: #### 3 2693-4 #### [facility] CLIA [id number] [address] MCV (RBC) [Entitic vol] 93.5 fL Normal 80.0-100.0 [facility] Comment on above: Order Comment: Speci men Type: BLOOD SPECIMEN Ordering Facility: [facility] Address: [address] [place] [address] Performed By: #### 3 2693-4 #### [facility] CLIA [id number] [address] Nucleated RBC (Bld) [#/Vol] 10*3/uL Normal <0.01 [facility] Comment on above: Order Comment: Speci men Type: BLOOD SPECIMEN Ordering Facility: [facility] Address: [address] [place] [address] Performed By: #### 3 2693-4 #### [facility] CLIA [id number] [address] Platelet mean volume (Bld) [Entitic vol] 10.7 fL Normal 9.0-12.7 [facility] Comment on above: Order Comment: Speci men Type: BLOOD SPECIMEN Ordering Facility: [facility] Address: [address] [place] [address] Performed By: #### 3 2693-4 #### [facility] CLIA [id number] [address] Platelets (Bld) [#/Vol] 196 10*3/uL Normal 150-400 [facility] Comment on above: Order Comment: Speci men Type: BLOOD SPECIMEN Ordering Facility: [facility] Address: [address] [place] [address] Performed By: #### 3 2693-4 #### [facility] CLIA [id number] [address] OF [facility] RBC (Bld) [#/Vol] 3.22 10*6/uL Low 3.90-5.20 [facility] Comment on above: Order Comment: Speci men Type: BLOOD SPECIMEN Ordering Facility: [facility] Address: [address] [place] [address] Performed By: #### 3 2693-4 #### [facility] CLIA [id number] [address] WBC (Bld) [#/Vol] 12.56 10*3/uL High 3.70-11.00 [facility] Comment on above: Order Comment: Speci men Type: BLOOD SPECIMEN Ordering Facility: [facility] Address: [address] [place] [address] Performed By: #### 3 2693-4 #### [facility] CLIA [id number] [address] OF [facility] Lactate (Bld) [Moles/Vol]on 08-07-2024 Lactate [Moles/Vol] 1.0 mmol/L Normal 0.5-2.2 [facility] Comment on above: Order Comment: Speci men Type: BLOOD SPECIMEN Ordering Facility: [facility] Address: [address] [place] [address] Performed By: #### 3 2693-4 #### [facility] CLIA [id number] [address] Magnesium SerPl-mCncon 08-07 Magnesium [Mass/Vol] 1.4 mg/dL Low 1.7-2.3 [facility] Comment on above: Order Comment: Speci men Type: BLOOD SPECIMEN Ordering Facility: [facility] Address: [address] [place] [id number] Performed By: #### 3 2693-4 #### [facility] CLIA [id number] [address] [place] THERAPY NTon 08-07-2024 THERAPY NT HNO ID: [id number] Author: DEVIN WALLACE OT/L Service: Occupational Therapy Author Type: Occupational Therapist Type: Therapy (PT/OT/Speech/Resp) Filed: 08/07/2024 15:01 Note Text: Occupational Therapy Evaluation Summary SERVICE DATE: 08/07/2024 SERVICE TIME: 1214 to 1246 ROOM: [place] [address] OT 6 Clicks Score: 13 DISCHARGE RECOMMENDATIONS ECF Recommended Discharge Disposition Comments: Recommend return home to patient's home ECF/memory care unit with therapy due to familiar environment, risk for wandering and secure unit. ASSESSMENT Response to Therapy Interventions: Cognitive Deficits, Good Participation in Activities, Needs Frequent Redirection or Reinstruction, Requires Additional Time to Complete Activities, Requires Encouragement to Complete Activities Patient participates well in therapy with education and encouragement, frequent redirection. Patient is functioning below her baseline level of independence in ADL and mobility and would benefit from continued therapy post acutely. Recommend return to ECF to familiar memory care, locked unit for safety with therapy to progress ADL, mobility and cognitive/safety awareness in own home setting for best follow through. PRECAUTIONS Fall Risk, Lines/Tubes/Drains IV, external catheter CURRENT HOSPITAL COURSE Patient admitte following unwitnessed fall at ECF, with imaging negative for fracture but finding of left UVJ stone. Also with UTI/sepsis. Relevant Past Medical History: CAD, HTN,OA, urge incontinence, h/o DVT/PE; Dementia-Ox1 baseline. HOME LIVING Patient Lives With: Facility Care (ECF/memory care; [facility]) Assistance Available: 24-Hour (staff and spouse) Entry To Home: No Stairs Tub/Shower Type: walk in with seat/bars ; staff assists Laundry: Provided for patient Equipment Owned: Walker- Wheeled, Wheelchair- Manual PRIOR FUNCTIONAL LEVEL Required Assistance Assistance Required With: Ambulation, Cleaning, Laundry, Meals, Medication Management, Safety, Self Care, Shopping, Transportation Patient resides in memory care unit at [facility]. Generally ambulates without device, or with wheeled walker as needed with min/CGA. Occasionally uses w/c when fatigued, distances lately. Feeds self with set up, can complete grooming with min assist but requires extensive assist with other self care for safety and due to cognitive deficits. Meals/IADL provided for patient, as well as medication management. Baseline Cognition: Oriented to self SUBJECTIVE Patient pleasant, agreeable to therapy. Reports pain in her gustavo area but did not rate. Also reports stiffness in her legs. Spouse present and supportive. Patient confused, needs frequent redirection. COGNITION Orientation Deficits: Confused, Not oriented to Place, Not oriented to Time, Not oriented to Situation Responsiveness: Alert, Awake Follows Commands: 1-step Commands, Cueing Needed Cueing to Follow Commands: Moderate Memory Deficits: Short Term, Penitentiary, Recall of Medical/Personal History, Recall of Recent Events Executive Function Deficits: Sequencing, Judgement, Insight to Deficits, Problem Solving, Safety Awareness THERAPY DIAGNOSIS Reduced mobility-other, Decreased activities of daily living (ADL), Muscle Weakness (generalized), Unsteadiness on feet, Signs and Symptoms Involving Cognitive Functions and Awareness, Lack of coordination-other TREATMENT INTERVENTIONS Evaluation, Self Senior Care Management (47717) Timed Code Treatment (minutes): 17 Skilled Treatment Time (minutes): 32 $ Evaluation - Moderate (33159) Billed Units: 1 unit Self Senior Care Management (17848) Treatment Minutes: 17 $ Self Senior Care Management (27786) Billed Units: 1 unit TRAINING AND EDUCATION PROVIDED Activity Adaptation/Compensatory Strategies, Bed Mobility, Benefits of In-Hospital Mobility, Command Following, Cognitive Stimulation Activities, Discharge Planning, Feeding Tasks, Grooming Tasks, Functional Mobility Involving ADLs, Insight into Deficits, Orientation, Memory/Attention, Patient Exercise/Therapy Program Support Needs, Precautions/Restrictions, Role of Occupational Therapy, Safety/Judgment, Sitting Balance to [place] with ADLs/Self-Care, Standing Balance to [place] with ADLs/Self-Care, Transfer - Sit to Stand THERAPEUTIC SKILLS USED Activity Dosing, Cues for Sequencing/Proper Technique for Activity, Cuing Tactile, Cuing Verbal, Cuing Visual, Facilitation of Joint Range of Motion, Movement Facilitation, Physical Assist, Therapeutic Use of Self FUNCTIONAL STATUS Activities of Daily Living Assist Level Additional Information Feeding Minimal Assistance Grooming Moderate Assistance Bathing Upper Body Moderate Assistance Bathing Lower Body Maximal Assistance Dressing Upper Body Moderate Assistance Dressing Lower Body Maximal Assistance Toileting Maximal Assistance Mobility Assist Level Additional Informa (more content not included)... 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 Family is requesting spiritual care services. Met with PT and the daughter was at the bedside. They would like anointing from a ecology professor. A note was left in their inner mailbox. Read sacred text, sacred prayers, and prayed. To contact the Spiritual Care Department: Please call [phone]. SIGNATURE: Chaplain Allen PATIENT NAME: Cj Gillis DATE: August 06, 2024 TIME: 5:57 PM PAGER/CONTACT #: [phone] [facility] HNO ID: [id number] Author: DILMA MANCERA, CELSO Service: Radiology Author Type: Technologist Type: [facility] Filed: 08/06/2024 09:29 Note Text: Radiology Service Progress Note PATIENT NAME: Cj Gillis DATE OF SERVICE: August 06, 2024 TIME: 9:28 AM PATIENT IDENTITY VERIFICATION COMPLETED USING TWO (2) IDENTIFIERS: Name and Date of confirmed by patient verbally and Name and Date of confirmed by identification band. FALL SCREENING: Has the patient had 2 falls in the last year or 1 fall with injury or currently using an Ambulatory Assistive Device (Walker, Cane, Wheelchair, Crutches, etc.)? Emergency Room Patient: Screened in ED PATIENT GENDER DATA: Assigned female at . status: : No status: NO. PATIENT RELEVANT IMPLANT DATA REVIEWED: Not Applicable PATIENT PRESENTS WITH AN IMPLANTABLE OR ATTACHED HOG SAWYER: No RADIOLOGY DEPARTMENT: CT; Exam(s) Completed: Abdomen/Pelvis , Brain , and Spine PERIPHERAL IV DATA: Not applicable SIGNED BY: CELSO Cruz August 06, 2024 9:28 AM [facility] ANES PRE-OPon 08-06-2024 ANE PRE-OP HNO ID: [id number] Author: DEMARIO NICHOLSON MD Service: Anesthesiology Author Type: Physician Type: Anesthesia Preprocedure Evaluation Filed: 08/06/2024 18:38 Note Text: ANESTHESIOLOGY DAY OF SURGERY NOTE : 1940 Procedure Information Anesthesia Start Date/Time: 08/06/241833 Procedure: CYSTOSCOPY, INSERTION STENT URETERAL J (Left: Abdomen) Location: [facility] 18 / [facility] Surgeons: Rey Rowan MD Estimated body mass index is 19.05 kg/m? as calculated from the following: Height as of 12/16/19: 162.6 cm (5' 4). Weight as of this encounter: 50.3 kg (111 lb). Most recent hematocrit and potassium results: Hematocrit 38.4 08/06/2024 Potassium 4.4 08/06/2024 Relevant Problems CARDIO (+) CAD (coronary artery disease) (+) Essential hypertension, benign ENDO (+) DM type 2 (diabetes mellitus, type 2) (HCC) -RENAL (+) Renal calculus NEURO-PSYCH (+) History of palpitations (+) Personal history of venous thrombosis and embolism Other (+) Arthritis of foot (+) Generalized osteoarthrosis of hand (+) OA (osteoarthritis) I - PHYSICAL EVALUATION AIRWAY Patient intubated: No. Tracheostomy tube not present Mallampati: II. TM distance: >3 FB. Neck ROM: full ROM without neurological symptoms. Mouth opening: adequate. Short neck: no. Thick neck: no II - ANESTHESIA PLAN ASA Score: 3; emergent. Anesthetic Plan: MAC NPO Status: adequate Beta Elizabeth Monitoring Plan Monitoring plan: standard ASA. Post Procedure Analgesic Plan Postoperative analgesic plan: parenteral or oral opioids. Informed Consent Anesthetic risks, benefits, alternatives, personnel and consent discussed: yes. Patient / Responsible Republican agrees to proceed: yes Patient / Surrogate agrees to blood products: blood products not planned DNR status not reviewed with patient and/or family prior to surgery. Significant changes in the patient condition since the History and Physical, not otherwise documented in primary service progress note: no. Potential Anesthesia issues that may suggest increased risk of complications or contraindication to planned procedure: none. Vitals Value Taken Time BP 148/61 08/06/24 1800 Pulse 110 08/06/24 1825 Resp 31 08/06/24 1825 Temp SpO2 97 % 08/06/24 1710 Vitals shown include unfiled device data. Facility-Administered Medications as of 08/06/2024 Medication Dose Route Frequency [COMPLETED] NaCl 0.9% 500 mL iv bolus 500 mL INTRAVENOUS ONCE [COMPLETED] magnesium sulfate iv piggyback in sterile water 2 g 50 mL 2 g INTRAVENOUS ONCE [Transfer Hold] NaCl 0.9% iv flush bag 20 mL INTRAVENOUS PRN [Transfer Hold] acetaminophen 1,000 mg tab(s) (TYLENOL) 1,000 mg ORAL ONCE [Transfer Hold] traMADol 50 mg tab(s) (ULTRAM) 50 mg ORAL ONCE [COMPLETED] ondansetron (PF) 4 mg injection (ZOFRAN) 4 mg INTRAVENOUS ONCE [Transfer Hold] lactated ringers iv infusion 100 mL/hr INTRAVENOUS CONTINUOUS [Transfer Hold] tamsulosin 0.4 mg cap(s) (FLOMAX) 0.4 mg ORAL DAILY Outpatient Medications as of 08/06/2024 Medication Sig rosuvastatin (CRESTOR) 10 mg tablet Take 10 mg by mouth once daily. famotidine (PEPCID) 20 mg tablet Take 20 mg by mouth once daily. loratadine (CLARITIN) 10 mg tablet Take 10 mg by mouth once daily. escitalopram oxalate (ESCITALOPRAM) 5 mg tablet Take 5 mg by mouth once daily. (Patient not taking: Reported on 03/05/2023) amLODIPine (NORVASC) 5 mg tablet Take 1 tablet by mouth once daily. (Patient not taking: Reported on 07/23/2020) sitaGLIPtin (JANUVIA) 100 mg tablet Take 1 tablet by mouth once daily. phenazopyridine (PYRIDIUM) 200 mg tablet Take 1 tablet by mouth three times daily as needed. betaxolol (KERLONE) 10 mg tablet Take 0.5 tablets by mouth once daily. traMADol (ULTRAM) 50 mg tablet Take 1-2 tablets by mouth twice daily for 90 days. as directed (Patient taking differently: Take 50-100 mg by mouth every 8 hours as needed. as directed) oxybutynin XL (DITROPAN XL) 5 mg 24 hr tablet Take 1 tablet by mouth once daily. (Patient not taking: Reported on 07/23/2020) DULoxetine (CYMBALTA) 30 mg capsule Take 1 capsule by mouth twice daily. (Patient taking differently: Take 30 mg by mouth once daily.) metFORMIN ER (GLUCOPHAGE XR) 500 mg 24 hr tablet Take 3 tablets by mouth daily with breakfast. May increase to 2000mg (4 tablets) daily as tolerated. (Patient taking differently: Take 500 mg by mouth daily with breakfast. BID) pravastatin (PRAVACHOL) 20 mg tablet Take 1 tablet by mouth once daily. (Patient not taking: Reported on 07/23/2020) magnesium oxide 400 mg magnesium tab Take by mouth once daily. (Patient not taking: Reported on 07/23/2020) Potassium 99 mg tab Take by mouth once daily. enalapril (VASOTEC) 10 mg tablet Take 1 tablet by mouth once daily. diphenhydrAMINE (BENADRYL) 25 mg capsule Take 25 mg by mouth every 4 hours as needed. COMPOUNDED PRESCRIPTION If patient presents with allergic reaction, please check tryptase level (more content not included)... Normal [facility] Bacteria Bld Culton 08-07-19 25 Bacteria identified Cx Nom (Bld) CULTURE, BLOOD: No growth 5 days Normal [facility] Comment on above: Performed By: #### 6 00-7 ####[facility] [id number] [place] [address] [place] Bacteria Ur Culton 5 Bacteria identified Cx Nom (U) CULTURE, URINE: No growth (<1,000 CFU/ml) [facility] Comment on above: Performed By: #### 2 4356-8 ####[facility] [id number] [place] [address] [place]#### 630-4 ####[facility] [id number] [place] [address] [place] CBC W Auto Differential pane l (Bld)on 05-07-2025 Basophils (Bld) [#/Vol] 0.07 10*3/uL Normal <0.11 [facility] Comment on above: Order Comment: Speci men Type: BLOOD SPECIMENOrdering Facility: [facility] Address: [address] [place] [address] Performed By: #### 5 7021-8 ####PIMENTEL LABORATORYCLIA [id number] [place] [address] [place] Basophils/100 WBC (Bld) 0.4 % Normal [facility] Comment on above: Order Comment: Speci men Type: BLOOD SPECIMENOrdering Facility: [facility] Address: [address] [place] [address] Performed By: #### 5 7021-8 ####PIMENTEL LABORATORYCLIA [id number] [address] [place] Differential cell count method Nom (Bld) Auto Normal [facility] Comment on above: Order Comment: Speci men Type: BLOOD SPECIMENOrdering Facility: [facility] Address: [address] [place] [address] Performed By: #### 5 7021-8 ####PIMENTEL LABORATORYCLIA [id number] [place] [address] [place] Eosinophils (Bld) [#/Vol] 0.04 10*3/uL Normal <0.46 [facility] Comment on above: Order Comment: Speci men Type: BLOOD SPECIMENOrdering Facility: [facility] Address: [address] [place] [address] Performed By: #### 5 7021-8 ####PIMENTEL LABORATORYCLIA [id number] [address] [place] Eosinophils/100 WBC (Bld) 0.2 % Normal [facility] Comment on above: Order Comment: Speci men Type: BLOOD SPECIMENOrdering Facility: [facility] Address: [address] [place] [address] Performed By: #### 5 7021-8 ####PIMENTEL LABORATORYCLIA [id number] [place] [address] [place] Erythrocyte distribution width (RBC) [Ratio] 12.4 % Normal 11.5-15.0 [facility] Comment on above: Order Comment: Speci men Type: BLOOD SPECIMENOrdering Facility: [facility] Address: [address] [place] [address] Performed By: #### 5 7021-8 ####PIMENTEL LABORATORYCLIA [id number] [address] [place] Hematocrit (Bld) [Volume fraction] 38.4 % Normal 36.0-46.0 [facility] Comment on above: Order Comment: Speci men Type: BLOOD SPECIMENOrdering Facility: [facility] Address: [address] [place] [address] Performed By: #### 5 7021-8 ####PIMENTEL LABORATORYCLIA [id number] [address] [place] Hemoglobin (Bld) [Mass/Vol] 12.4 g/dL Normal 11.5-15.5 [facility] Comment on above: Order Comment: Speci men Type: BLOOD SPECIMENOrdering Facility: [facility] Address: [address] [place] [address] Performed By: #### 5 7021-8 ####PIMENTEL LABORATORYCLIA [id number] [place] [address] [place] Immature granulocytes (Bld) [#/Vol] 0.12 10*3/uL High <0.10 [facility] Comment on above: Order Comment: Speci men Type: BLOOD SPECIMENOrdering Facility: [facility] Address: [address] [place] [address] Performed By: #### 5 7021-8 ####PIMENTEL LABORATORYCLIA [id number] [address] [place] Immature granulocytes/100 WBC (Bld) 0.7 % Normal [facility] Comment on above: Order Comment: Speci men Type: BLOOD SPECIMENOrdering Facility: [facility] Address: [address] [place] [address] Performed By: #### 5 7021-8 ####PIMENTEL LABORATORYCLIA [id number] [place] [address] [facility] [place] Lymphocytes (Bld) [#/Vol] 0.87 10*3/uL Low 1.00-4.00 [facility] Comment on above: Order Comment: Speci men Type: BLOOD SPECIMENOrdering Facility: [facility] Address: [address] [place] [address] Performed By: #### 5 7021-8 ####PIMENTEL LABORATORYCLIA [id number] [address] Lymphocytes/100 WBC (Bld) 5.0 % Normal [facility] Comment on above: Order Comment: Speci men Type: BLOOD SPECIMENOrdering Facility: [facility] Address: [address] [place] [address] Performed By: #### 5 7021-8 ####PIMENTEL LABORATORYCLIA [id number] [address] MCH (RBC) [Entitic mass] 29.7 pg Normal 26.0-34.0 [facility] Comment on above: Order Comment: Speci men Type: BLOOD SPECIMENOrdering Facility: [facility] Address: [address] [place] [address] Performed By: #### 5 7021-8 ####PIMENTEL LABORATORYCLIA [id number] [address] MCHC (RBC) [Mass/Vol] 32.3 g/dL Normal 30.5-36.0 [facility] Comment on above: Order Comment: Speci men Type: BLOOD SPECIMENOrdering Facility: [facility] Address: [address] [place] [address] Performed By: #### 5 7021-8 ####PIMENTEL LABORATORYCLIA [id number] [address] MCV (RBC) [Entitic vol] 92.1 fL Normal 80.0-100.0 [facility] Comment on above: Order Comment: Speci men Type: BLOOD SPECIMENOrdering Facility: [facility] Address: [address] [place] [address] Performed By: #### 5 7021-8 ####PIMENTEL LABORATORYCLIA [id number] [address] Monocytes (Bld) [#/Vol] 1.33 10*3/uL High <0.87 [facility] Comment on above: Order Comment: Speci men Type: BLOOD SPECIMENOrdering Facility: [facility] Address: [address] [place] [address] Performed By: #### 5 7021-8 ####PIMENTEL LABORATORYCLIA [id number] [address] Monocytes/100 WBC (Bld) 7.7 % Normal [facility] Comment on above: Order Comment: Speci men Type: BLOOD SPECIMENOrdering Facility: [facility] Address: [address] [place] [address] Performed By: #### 5 7021-8 ####PIMENTEL LABORATORYCLIA [id number] [address] [place] Neutrophils (Bld) [#/Vol] 14.88 10*3/uL High 1.45-7.50 [facility] Comment on above: Order Comment: Speci men Type: BLOOD SPECIMENOrdering Facility: [facility] Address: [address] [place] [address] Performed By: #### 5 7021-8 ####PIMENTEL LABORATORYCLIA [id number] [address] Neutrophils/100 WBC (Bld) 86.0 % Normal [facility] Comment on above: Order Comment: Speci men Type: BLOOD SPECIMENOrdering Facility: [facility] Address: [address] [place] [address] Performed By: #### 5 7021-8 ####PIMENTEL LABORATORYCLIA [id number] [address] [place] Nucleated RBC (Bld) [#/Vol] 10*3/uL Normal <0.01 [facility] Comment on above: Order Comment: Speci men Type: BLOOD SPECIMENOrdering Facility: [facility] Address: [address] [place] [address] Performed By: #### 5 7021-8 ####PIMENTEL LABORATORYCLIA [id number] [address] [place] Nucleated RBC/100 WBC (Bld) [Ratio] 0.0 /100 WBC Normal [facility] Comment on above: Order Comment: Speci men Type: BLOOD SPECIMENOrdering Facility: [facility] Address: [address] [place] [address] Performed By: #### 5 7021-8 ####PIMENTEL LABORATORYCLIA [id number] [address] [place] Platelet mean volume (Bld) [Entitic vol] 10.6 fL Normal 9.0-12.7 [facility] Comment on above: Order Comment: Speci men Type: BLOOD SPECIMENOrdering Facility: [facility] Address: [address] [place] [address] Performed By: #### 5 7021-8 ####PIMENTEL LABORATORYCLIA [id number] [address] [place] Platelets (Bld) [#/Vol] 275 10*3/uL Normal 150-400 [facility] Comment on above: Order Comment: Speci men Type: BLOOD SPECIMENOrdering Facility: [facility] Address: [address] [place] [address] Performed By: #### 5 7021-8 ####PIMENTEL LABORATORYCLIA [id number] [address] [place] RBC (Bld) [#/Vol] 4.17 10*6/uL Normal 3.90-5.20 [facility] Comment on above: Order Comment: Speci men Type: BLOOD SPECIMENOrdering Facility: [facility] Address: [address] [place] [address] Performed By: #### 5 7021-8 ####PIMENTEL LABORATORYCLIA [id number] [address] [place] WBC (Bld) [#/Vol] 17.31 10*3/uL High 3.70-11.00 [facility] Comment on above: Order Comment: Speci men Type: BLOOD SPECIMENOrdering Facility: [facility] Address: [address] [place] [address] Performed By: #### 5 7021-8 ####PIMENTEL LABORATORYCLIA [id number] [place] [address] [place] CONSULTon 08-06-2024 CONSULT HNO ID: [id number] Author: REY ROWAN MD Service: Urology Author Type: Resident Type: Consults Filed: 08/06/2024 18:31 Note Text: Attestation signed by Rey Rowan MD at 08/06/2024 6:31 PM [facility] STAFF PHYSICIAN NOTE OF PERSONAL INVOLVEMENT IN CARE I personally saw and examined the patient. I have reviewed the progress note obtained and documented by the resident and I personally participated in the doll components. I have discussed the case and management of the patient's care. I agree with resident's findings and plan as documented in the resident's note. Rey Rowan MD [facility] Urology Urology Consult 08/06/2024 HISTORY OF PRESENT ILLNESS: The patient is a 84 year old female unknown to our service, with past medical history as listed below, who is here for fall at facility. Urology consulted for incidental L 5 mm L UVJ calc. Patient with history of dementia; family at bedside. Daughter reports patient very intermittent with her complaints; has said yes at times today regarding pain and no at other times. Unable to localize when she endorses pain. Daughter endorses ongoing nausea with vomiting, worsening recently. No fever. Unwitnessed fall at home; do not know the reason due to patient's mentation. Daughter concerned about anesthesia; discussed procedure at length. Called patient's (HCPOA) and discussed procedure, obtained informed consent. Urologic history Hx stress incontinence PAST MEDICAL HISTORY: PAST MEDICAL HISTORY Diagnosis Date Atrophic gastritis without mention of hemorrhage BENIGN HYPERTENSION 08/04/2003 Diarrhea Diverticulosis of colon (without mention of hemorrhage) DVT (deep venous thrombosis) (HCC) Esophagitis, unspecified Gall bladder disease GEN OSTEOARTHROS-HAND Heart murmur Hyperlipidemia Irregular heart beat 04/28/2009 JOINT PAIN-ANKLE Other and unspecified hyperlipidemia Pain in limb Peripheral vascular disease, unspecified h/o DVT/PE PERS HX VENOUS THROMB/EMBOLISM 02/04/2003 Pulmonary embolism (HCC) late 1980s around the time of foot surgery Rheumatic fever TB (tuberculosis) 04/28/2009 Age 17-18 Type II or unspecified type diabetes mellitus without mention of complication, not stated as uncontrolled Unspecified essential hypertension Unspecified pulmonary tuberculosis, confirmation unspecified h/o TB PAST SURGICAL HISTORY: PAST SURGICAL HISTORY Procedure Laterality Date ANTERIOR COLPORRAPHY RPR CYSTOCELE W/CYSTO 1996 cystocele/rectocele/bladder susp ARTHROSCOPY KNEE DIAGNOSTIC W/WO SYNOVIAL BX SPX Arthroscopy, knee ARTHRP KNE CONDYLEANDPLATU MEDIALANDLAT COMPARTMENTS 02/10/03 bilateral total knee arthroplasty CHOLECYSTECTOMY remote COLONOSCOPY FLX DX W/COLLJ SPEC WHEN PFRMD 04/10/05 Colonoscopy COLONOSCOPY FLX DX W/COLLJ SPEC WHEN PFRMD 04/11/12 Colonoscopy repeat 10 years COLONOSCOPY FLX DX W/COLLJ SPEC WHEN PFRMD 07/31/2018 Colonoscopy COLPOPEXY, VAGINAL EXTRAPERITONEAL 02/02/16 ESOPHAGOGASTRODUODENOSCOPY TRANSORAL DIAGNOSTIC 04/11/12 EGD PAST SURGICAL HISTORY OF Cataract surgery, bilateral 2012 ALLERGIES: ALLERGIES Allergen Reactions Celecoxib PALPITATIONS Lipitor [Atorvastat* Other: See Comments Suspects lipitor decreases her hearing loss and tinnitus and liver spots. Morphine GI Upset Opioids-Meperidine * GI Upset Rofecoxib PALPITATIO;NS HOME MEDICATIONS: (Not in a hospital admission) FAMILY HISTORY: Family History Problem Relation Age of Onset Ischemic Heart Disease Father FROM BLOOD CLOT AFTER CABG other (hyperlipidemia [Other]) Father DVT Mother varicois veins None Brother Social History: Tobacco Use: Never Alcohol Use: No ROS: See HPI PHYSICAL EXAM: VITALS: 08/06/24 1555 BP: 144/54 Pulse: (!) 95 Resp: 22 Temp: 36.8 ?C (98.3 ?F) TempSrc: Oral SpO2: 99% Weight: 50.3 kg (111 lb) General: actively vomiting Cardiac: tachycardic Abdomen: soft, non distended, non tender : R. flank NTTP, L. flank NTTP, and no suprapubic TTP Participation of a fellow, resident, medical student, or advanced practice provider student in performing the sensitive examination was discussed with the patient or authorized district representative. The patient or authorized district representative has agreed to proceed with the sensitive examination. DATA: LABS: BMP: . Glucose (mg/dL) Date Value 08/06/2024 235 07/01/2018 135 Potassium (mmol/L) Date Value 08/06/2024 4.4 07/01/2018 4.6 Sodium (mmol/L) Date Value 08/06/2024 136 07/01/2018 138 Chloride (mmol/L) Date Value 08/06/2024 98 07/01/2018 103 CO2 (mmol/L) Date Value 08/06/2024 24 07/01/2018 26 Creatinine (mg/dL) Date Value 08/06/2024 0.89 07/01/2018 0.59 BUN (mg/dL) Date Value 08/06 (more content not included)... Normal [facility] CT ABD/PEL WO IVCONon 2024 CT ABD/PEL WO IVCON * * *Final Report* * * DATE OF EXAM: Aug 06 2024 9:33[place] [facility] [place]/PEL WO [place] / PROCEDURE REASON: Abdominal abscess/infection suspected * * * * Physician Interpretation * * * * EXAMINATION: CT ABDOMEN AND PELVIS WITHOUT IV CONTRAST CLINICAL HISTORY: Fall TECHNIQUE: Non-IV contrast imaging of the abdomen and pelvis was performed using standard technique, scanning from just above the dome of the diaphragm to the symphysis pubis. Unenhanced imaging is limited for the evaluation of some intra-abdominal and pelvic pathology. MQ: CTAPWO_3 Contrast: IV: None : ml of CT Radiation dose: Integrated Dose-length product (DLP) for this visit = 1192 mGy*cm. CT Dose Reduction Employed: Automated exposure control(AEC) and iterative recon COMPARISON: 06/18/2019. RESULT: Abdomen / Pelvis: Liver: Unremarkable. Biliary: Cholecystectomy. No gross biliary dilatation. Spleen: No splenomegaly. Calcified granuloma. Pancreas: No mass or duct dilatation. Adrenals: No mass. Kidneys: 5 mm stone is seen at the left UVJ. There is mild left hydroureteronephrosis with left perinephric fat stranding. Questionable punctate stone upper pole left kidney. No right-sided urolithiasis or hydronephrosis. GI Tract: No bowel dilation. Colonic diverticulosis. Lymph Nodes: No lymphadenopathy. Mesentery/peritoneum: No ascites. Retroperitoneum: No mass. Vasculature: Heavy aortoiliac calcific atherosclerosis. Normal caliber abdominal aorta. Pelvis: Bladder unremarkable. Uterus not seen. Bones/Soft Tissues: No acute abnormality. Lower thorax: No acute finding. Localizer images: No additional findings. IMPRESSION: Mildly obstructive 5 mm stone at the left UVJ. Questionable punctate left renal stone. Security Software Engineer: JAYDA Transcribe Date/Time: Aug 06 2024 10:11A Dictated by : KELLY CURRIE MD This examination was interpreted and the report reviewed and electronically signed by: KELLY CURRIE MD on Aug 06 2024 10:18AM EST [id number] [facility] CT BRAIN WO IVCONon 08-07-19 CT BRAIN WO IVCON * * *Final Report* * * DATE OF EXAM: Aug 06 2024 9:33AM [facility] [place] BRAIN WO IVCON / PROCEDURE REASON: Head trauma, moderate-severe * * * * Physician Interpretation * * * * EXAMINATION: CT BRAIN WO IVCON CLINICAL HISTORY: Trauma. TECHNIQUE: Serial axial images without IV contrast were obtained from the vertex to the foramen magnum. MQ: CTBWO_3 CT Radiation dose: Integrated Dose-Length Product (DLP) for this visit = 1192 mGy*cm CT Dose Reduction Employed: Automated exposure control(AEC) and iterative recon COMPARISON: None. RESULT: Post-operative change: None. Acute change: No evidence of an acute infarct or other acute parenchymal process. Hemorrhage: No evidence of acute intracranial hemorrhage. ECASS hemorrhagic transformation score: Not Applicable Mass Lesion / Mass Effect: There is no evidence of an intracranial mass or extraaxial fluid collection. No significant mass effect. Chronic change: Diffuse however nonspecific white matter changes are visualized. There appears be a large Virchow-Junaid space in the inferior right basal ganglia area. Atherosclerotic calcification seen in the bilateral internal carotid arteries. Parenchyma: There is prominence of the cerebral sulci, cisternal spaces and ventricular spaces, suggestive of volume loss. Ventricles: Symmetric bilateral lateral ventricles. Paranasal sinuses and skull base: Status post bilateral cataract surgery. The visualized paranasal sinuses are grossly clear. The skull base and imaged soft tissues are unremarkable. Localizer images: No additional findings. IMPRESSION: No acute intracranial hemorrhage identified. White matter changes. Security Software Engineer: PSCB Transcribe Date/Time: Aug 06 2024 9:52A Dictated by : CARLOS EDUARDO HERRERA MD This examination was interpreted and the report reviewed and electronically signed by: CARLOS EDUARDO HERRERA MD on Aug 06 2024 9:59AM EST [id number] [facility] CT CERVICAL SPINE WO IVCONon 08-06-2024 CT CERVICAL SPINE WO IVCON * * *Final Report* * * DATE OF EXAM: Aug 06 2024 9:33AM [facility] [place] CERVICAL SPINE WO IVCON / PROCEDURE REASON: Spine fracture, cervical, traumatic * * * * Physician Interpretation * * * * EXAMINATION: CT CERVICAL SPINE WO IVCON CLINICAL HISTORY: Spine fracture, cervical, traumatic TECHNIQUE: Spiral, high resolution axial unenhanced images were obtained from the skull base to the cervicothoracic junction with sagittal and coronal planar reconstructions. MQ: CTCSPWO_5 CT Radiation dose: Integrated CT Dose-Length Product (DLP) for this visit = 1192 mGy*cm CT Dose Reduction Employed: Automated exposure control(AEC) and iterative recon COMPARISON: None. RESULT: Counting reference: Craniocervical junction. Anatomic Variants: None. Crankshaft Grinder (topogram) images: No additional findings. Alignment: There is a minimal C2 on C3 anterolisthesis. No jumped facet. Craniocervical junction: Craniocervical junction is normal. Osseous structures/fracture: No evidence of a lytic or blastic process in the visualized spine. No evidence of acute or chronic fracture. Cervical soft tissues: The paraspinal soft tissues are within normal limits. Degenerative changes: Significant osteophyte formation is visualized, with C3-4, C4-5, C5-6 and C6-7 disc space narrowing. No central canal stenosis. There is facet arthrosis. 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 C4-5 left neural foraminal narrowing is noted. IMPRESSION: No acute fractures demonstrated in the cervical spine. Cervical spine degenerative changes with multilevel disc space narrowing. Security Software Engineer: PSCB Transcribe Date/Time: Aug 06 2024 10:00A Dictated by : CARLOS EDUARDO HERRERA MD This examination was interpreted and the report reviewed and electronically signed by: CARLOS EDUARDO HERRERA MD on Aug 06 2024 10:13AM EST [id number] Normal [facility] Comprehensive metabolic 2000 panelon 08-06-2024 Albumin [Mass/Vol] 3.8 g/dL Low 3.9-4.9 [facility] Comment on above: Order Comment: Speci men Type: BLOOD SPECIMENOrdering Facility: [facility] Address: [address] [place] [address] Performed By: #### 3 3762-6, 89461-9, , [id number] ####PIMENTEL LABORATORYCLIA [id number] [place] [address] [place] ALP [Catalytic activity/Vol] 99 U/L Normal 34-123 [facility] Comment on above: Order Comment: Speci men Type: BLOOD SPECIMENOrdering Facility: [facility] Address: [address] [place] [address] Performed By: #### 3 3762-6, 16928-1, , [id number] ####[facility] LABORATORYCLIA [id number] [address] STATES OF [facility] ALT [Catalytic activity/Vol] 7 U/L Normal 7-38 [facility] Comment on above: Order Comment: Speci men Type: BLOOD SPECIMENOrdering Facility: [facility] Address: [address] [place] [address] Performed By: #### 3 3762-6, 46541-2, , [id number] ####PIMENTEL LABORATORYCLIA [id number] [place] [address] [place] Anion gap [Moles/Vol] 14 mmol/L Normal 8-15 [facility] Comment on above: Order Comment: Speci men Type: BLOOD SPECIMENOrdering Facility: [facility] Address: [address] [place] [address], [place] [address] Performed By: #### 3 3762-6, 16730-5, 04037-6, [id number] ####PIMENTEL LABORATORYCLIA [id number] [place] [address] [place] AST [Catalytic activity/Vol] 11 U/L Low 13-35 [facility] Comment on above: Order Comment: Speci men Type: BLOOD SPECIMENOrdering Facility: [facility] Address: [address] [place] [address] Performed By: #### 3 3762-6, 97550-5, , [id number] ####PIMENTEL LABORATORYCLIA [id number] [place] [address] [place] Bilirubin [Mass/Vol] 0.5 mg/dL Normal 0.2-1.3 [facility] Comment on above: Order Comment: Speci men Type: BLOOD SPECIMENOrdering Facility: [facility] Address: [address] [place] [address] Performed By: #### 3 3762-6, 05850-9, , [id number] ####PIMENTEL LABORATORYCLIA [id number] [place] [address] [place] Calcium [Mass/Vol] 9.7 mg/dL Normal 8.5-10.2 [facility] Comment on above: Order Comment: Speci men Type: BLOOD SPECIMENOrdering Facility: [facility] Address: [facility] [place] [address] Performed By: #### 3 3762-6, 45464-9, , [id number] ####PIMENTEL LABORATORYCLIA [id number] [place] [address] [place] Chloride [Moles/Vol] 98 mmol/L Normal 98-107 [facility] Comment on above: Order Comment: Speci men Type: BLOOD SPECIMENOrdering Facility: [facility] Address: [address] [place] [address] [place] [id number] Performed By: #### 3 3762-6, 65378-5, 07542-5, [id number] ####PIMENTEL LABORATORYCLIA [id number] [place] [address] [place] CO2 [Moles/Vol] 24 mmol/L Normal 22-30 [facility] Comment on above: Order Comment: Alex ruffin Type: BLOOD SPECIMENOrdering Facility: [facility] Address: [address] [place] [address] Performed By: #### 3 3762-6, 48022-2, 71622-5, [id number] ####[facility] LABORATORYCLIA [id number] [place] [id number] [place] Creatinine [Mass/Vol] 0.89 mg/dL Normal 0.58-0.96 [facility] Comment on above: Order Comment: Alex ruffin Type: BLOOD SPECIMENOrdering Facility: [facility] Address: [address] [place] [address] Performed By: #### 3 3762-6, 28337-0, 33794-7, [id number] ####[facility] LABORATORYCLIA [id number] [address] Creatinine and Glomerular filtration rate.predicted panel (S/P/Bld) 64 mL/min/1.73m??? Normal >=60 [facility] Comment on above: Order Comment: Alex ruffin Type: BLOOD SPECIMENOrdering Facility: [facility] Address: [address] [place] [address] Result Comment: Ashli mated Glomerular Filtration Rate (eGFR) is calculated using the 2020 CKD-EPI creatinine equation. This equation utilizes serum creatinine, sex, and age as parameters. The creatinine assay has traceable calibration to isotope dilution-mass spectrometry. Refer to KDIGO guidelines for clinical interpretation. In patients with unstable renal function, e.g. those with acute kidney injury, the eGFR may not accurately reflect actual GFR. Performed By: #### 3 3762-6, 27778-5, 61029-9, [id number] ####[facility]ORATORYCLIA [id number] [place] [id number] [place] Glucose [Mass/Vol] 235 mg/dL High 74-99 [facility] Comment on above: Order Comment: Alex ruffin Type: BLOOD SPECIMENOrdering Facility: [facility] Address: [address] [place], [place] [id number] Result Comment: The [place] Diabetes Association (ADA) provides guidance for cutoff values for fasting glucose and random glucose. The ADA defines fasting as no caloric intake for at least 8 hours. Fasting plasma glucose results between 100 to 125 mg/dL indicate increased risk for diabetes (prediabetes). Fasting plasma glucose results greater than or equal to 126 mg/dL meet the criteria for diagnosis of diabetes. In the absence of unequivocal hyperglycemia, results should be confirmed by repeat testing. In a patient with classic symptoms of hyperglycemia or hyperglycemic crisis, random plasma glucose results greater than or equal to 200 mg/dL meet the criteria for diagnosis of diabetes. Reference: Standards of Medical Care in Diabetes 2016, [place] [employer] Association. Diabetes Care. 2016.39(Suppl 1). Performed By: #### 3 3762-6, 17350-0, , [id number] ####[facility]ORATORYCLIA [id number] [place] [address] [place] Potassium [Moles/Vol] 4.4 mmol/L Normal 3.7-5.1 [facility] Comment on above: Order Comment: Speci men Type: BLOOD SPECIMENOrdering Facility: [facility] Address: [address] [id number] Performed By: #### 3 3762-6, 80898-3, , [id number] ####[facility]ORATORYCLIA [id number] [place] [address] [place] Protein [Mass/Vol] 7.8 g/dL Normal 6.3-8.0 [facility] Comment on above: Order Comment: Speci men Type: BLOOD SPECIMENOrdering Facility: [facility] Address: [address] [id number] Performed By: #### 3 3762-6, 04433-3, , [id number] ####[facility]ORATORYCLIA [id number] [place] [address] [place] Sodium [Moles/Vol] 136 mmol/L Normal 136-144 [facility] Comment on above: Order Comment: Speci men Type: BLOOD SPECIMENOrdering Facility: [facility] Address: [address] [place] [address] Performed By: #### 3 3762-6, 17545-8, 46223-9, [id number] ####[facility]ATORYCLIA [id number] [place] [address] [place] Urea nitrogen [Mass/Vol] 27 mg/dL High - [facility] Comment on above: Order Comment: Speci men Type: BLOOD SPECIMENOrdering Facility: [facility] Address: [facility] [place] [address] Performed By: #### 3 3762-6, 12456-1, 20948-9, [id number] ####[facility]ATORYCLIA [id number] [place] [address] [place] ECG COMPLETEon 08-06-2024 ECG COMPLETE Ventricular Rate : 1 07 BPM Atrial Rate : 107 BPM P-R Interval : 130 ms QRS Duration : 132 ms Q-T Interval : 378 ms QTC Calculation(Bazett) : 504 ms Calculated P [place] : 69 degrees Calculated R [place] : 60 degrees Calculated T [place] : 191 degrees SINUS TACHYCARDIA LEFT BUNDLE BRANCH BLOCK ABNORMAL ECG NO PREVIOUS ECGS AVAILABLE Confirmed by MD PEDRAZA CAROL ([id number]) on 08/06/2024 6:00:47 PM NAME : CJ GILLIS PID : [id number] : 1940 Gender : Female Race : ORD : [id number] Procedure Date : Aug 06 2024 17:55:25 Edit Date : Aug 06 2024 18:00:51 Diagnosis: SINUS TACHYCARDIA LEFT BUNDLE BRANCH BLOCK ABNORMAL ECG NO PREVIOUS ECGS AVAILABLE Confirmed by MD PEDRAZA CAROL ([id number]) on 08/06/2024 6:00:47 PM Test Reason : Chest Pain Location : 4 : AKED EM Overread By : MD PEDRAZA CAROL Edited By : MD PEDRAZA CAROL Referred By : , Acquired by : MARK BENNETT [facility] ED NOTEon 08-06-2024 ED NOTE HNO ID: [id number] Author: JOSE JESUS, RN Service: Nursing Author Type: Registered Nurse Type: ED Notes Filed: 08/06/2024 18:28 Note Text: Surgcial residents at bedside. Transporting patient to OR [facility] ED NOTE HNO ID: [id number] Author: JOSE JESUS RN Service: Nursing Author Type: Registered Nurse Type: ED Notes Filed: 08/06/2024 18:16 Note Text: Patient scheduled for transport to OR per presurgery dept. [facility] ED NOTE HNO ID: [id number] Author: SHERIN JIMENEZ, RN Service: ? Author Type: Registered Nurse Type: ED Notes Filed: 08/06/2024 15:53 Note Text: Bed: 17-ED Expected date: Expected time: Means of arrival: Comments: squad [facility] ED NOTE HNO ID: [id number] Author: JET PETERS, INDIRA Service: Nursing Author Type: Registered Nurse Type: ED Notes Filed: 08/06/2024 14:59 Note Text: MMT are at the bedside to transport pt down to [facility]. Report was given to the transfer team who assumed care at this time. Belongings were transported with the pt. [facility] ED NOTE HNO ID: [id number] Author: GARETH FOSS RN Service: ? Author Type: Registered Nurse Type: ED Notes Filed: 08/06/2024 08:31 Note Text: Patient brought to ED by EMS. Patient had unwitnessed fall, c/o right hip and shoulder pain [facility] ED NOTE HNO ID: [id number] Author: GARETH FOSS RN Service: ? Author Type: Registered Nurse Type: ED Notes Filed: 08/06/2024 08:26 Note Text: Bed: ED-11 Expected date: 08/06/24 Expected time: 8:06 AM Means of arrival: [place] [facility]/EMS Comments: 84 yo female, unwitnessed fall, right hip pain [facility] ED PROV NOTEon 08-06-2024 ED PROV NOTE HNO ID: [id number] Author: JOHN MONTES DE OCA MD Service: Emergency Medicine Author Type: Physician Type: ED Provider Notes Filed: 08/06/2024 16:48 Note Text: Attending Note I personally saw and examined the patient. I reviewed the resident's note. I agree with the resident's assessment and plan unless otherwise noted. I was present for the significant portion of the procedure(s). Brief HPI: Cj Gillis is a 84 year old female history of dementia, prior DVT and PE, hypertension, history of E. coli UTIs presenting to the emergency department today as a transfer from [facility] for urology consultation. Patient had an unwitnessed fall at nursing facility. White imaging showed a 5 mm LEFT UVJ stone. Xrays negative for fracture. Received Rocephin around 1130 this morning. Urine and urine cultures obtained. Had 1 dose of bactrim at nursing facility for UTI. Transferred with concern for septic stone. PAST MEDICAL HISTORY Diagnosis Date Atrophic gastritis without mention of hemorrhage BENIGN HYPERTENSION 08/04/2003 Diarrhea Diverticulosis of colon (without mention of hemorrhage) DVT (deep venous thrombosis) (HCC) Esophagitis, unspecified Gall bladder disease GEN OSTEOARTHROS-HAND Heart murmur Hyperlipidemia Irregular heart beat 04/28/2009 JOINT PAIN-ANKLE Other and unspecified hyperlipidemia Pain in limb Peripheral vascular disease, unspecified h/o DVT/PE PERS HX VENOUS THROMB/EMBOLISM 02/04/2003 Pulmonary embolism (HCC) late around the time of foot surgery Rheumatic fever TB (tuberculosis) 04/28/2009 Age 17-18 Type II or unspecified type diabetes mellitus without mention of complication, not stated as uncontrolled Unspecified essential hypertension Unspecified pulmonary tuberculosis, confirmation unspecified h/o TB Physical Exam: - Gen: ill appearing, frail. Non toxic. Temp 99.2 at time of my exam. Feels warm to touch. - HEENT: AT/NC, PERRL. Dry mouth/lips. Dentures noted. - neck: No midline c spine tenderness - CV: RRR. Hr upper 90s. - Pulm: No respiratory distress, CTAB - abdomen: s/nt. No back or flank pain. - extremities: bony spurs noted on feet. - Neuro: Weakly follows commands. Oriented x 1. Recognizes daughter at bedside. MDM/Plan: Reviewed prior imaging and lab work. Wbc 17. Urine concerning for infection. Meets sepsis criteria already received antibiotics, blood cultures obtained. Tylenol ordered for pain/fever. Home dose tramadol ordered. Urology will be consulted. Repeat lactate pending. NPO pending urologic evaluation. JOHN MONTES DE OCA 08/06/24 1648 [facility] ED PROV NOTE HNO ID: [id number] Author: JOHN MONTES DE OCA MD Service: Emergency Medicine Author Type: Resident Type: ED Provider Notes Filed: 08/07/2024 15:48 Note Text: Attestation signed by John Montes De Oca MD at 08/07/2024 3:48 PM Attending Note I evaluated the patient and personally participated in the doll components. I agree with the resident's findings and plan as documented and have discussed the case and management of the patient's care with the resident. Please see separate ED provider note for additional details/changes to resident documentation. Signature: John Montes De Oca MD Date: 08/07/2024 Time: 3:47 PM ED Provider Note Patient Name: Cj Gillis : 1940 SERVICE DATE: 08/06/24 History Patient presents with: Fall: Presents to ED from [facility] for consult. Pt s/p fall with incidental findings of urolithiasis AND urology consult. Pt unable to participate in triage process, only responding to name. A/o x1 upon arrival HPI 84-year-old female presents emerged department as a functional transfer from [facility] for mildly obstructing 5 mm left UVJ stone w/ hydroureteral nephrosis and UTI w/ concerns of septic stone. PMHx DVT/PE, rheumatic fever, T2DB, dementia, HLD, HTN, and h/o TB, recent UTI diagnosis on reported Bactrim (Doxy prescribed) the patient was found on the ground following an unwitnessed mechanical fall from standing height w/ unknown LOC and believed to not be on the ground for long. Evaluated initially at the [facility] ER and incidentally found positive mild obstructive 5 mm left UVJ with hydroureteronephrosis with no acute trauma findings. Treated with Rocephin, 1L NS in total, labs notable for leukocytosis of 17 without PATRICK and urine cultures pending. Urology was consulted from the ER and the patient was ultimately transferred for urology evaluation. On presentation to the ER the patient is at their baseline AO x 1 and complaining of generalized pain. PAST MEDICAL HISTORY Diagnosis Date Atrophic gastritis without mention of hemorrhage BENIGN HYPERTENSION 08/04/2003 Diarrhea Diverticulosis of colon (without mention of hemorrhage) DVT (deep venous thrombosis) (HCC) Esophagitis, unspecified Gall bladder disease GEN OSTEOARTHROS-HAND Heart murmur Hyperlipidemia Irregular heart beat 04/28/2009 JOINT PAIN-ANKLE Other and unspecified hyperlipidemia Pain in limb Peripheral vascular disease, unspecified h/o DVT/PE PERS HX VENOUS THROMB/EMBOLISM 02/04/2003 Pulmonary embolism (HCC) late 1980s around the time of foot surgery Rheumatic fever TB (tuberculosis) 04/28/2009 Age 17-18 Type II or unspecified type diabetes mellitus without mention of complication, not stated as uncontrolled Unspecified essential hypertension Unspecified pulmonary tuberculosis, confirmation unspecified h/o TB PAST SURGICAL HISTORY Procedure Laterality Date ANTERIOR COLPORRAPHY RPR CYSTOCELE W/CYSTO 1997 cystocele/rectocele/bladder susp ARTHROSCOPY KNEE DIAGNOSTIC W/WO SYNOVIAL BX SPX Arthroscopy, knee ARTHRP KNE CONDYLEANDPLATU MEDIALANDLAT COMPARTMENTS 02/10/03 bilateral total knee arthroplasty CHOLECYSTECTOMY remote COLONOSCOPY FLX DX W/COLLJ SPEC WHEN PFRMD 04/10/05 Colonoscopy COLONOSCOPY FLX DX W/COLLJ SPEC WHEN PFRMD 04/11/12 Colonoscopy repeat 10 years COLONOSCOPY FLX DX W/COLLJ SPEC WHEN PFRMD 07/31/2018 Colonoscopy COLPOPEXY, VAGINAL EXTRAPERITONEAL 02/02/16 ESOPHAGOGASTRODUODENOSCOPY TRANSORAL DIAGNOSTIC 04/11/12 EGD PAST SURGICAL HISTORY OF Cataract surgery, bilateral 2012 FAMILY HISTORY Problem Relation Age of Onset Ischemic Heart Disease Father FROM BLOOD CLOT AFTER CABG other (hyperlipidemia [Other]) Father DVT Mother varicois veins None Brother Social History Tobacco Use Smoking status: Never Smokeless tobacco: Never Vaping Use Vaping status: Never Used Substance and Sexual Activity Alcohol use: No Drug use: No Sexual activity: Not on file ALLERGIES Allergen Reactions Celecoxib PALPITATIONS Lipitor [Atorvastat* Other: See Comments Suspects lipitor decreases her hearing loss and tinnitus and liver spots. Morphine GI Upset Opioids-Meperidine * GI Upset Rofecoxib PALPITATIO;NS Review of Systems Unable to perform ROS: Dementia Physical Exam Vitals [08/06/24 1555] BP Pulse Temp Temp src Resp SpO2 Weight Height 144/54 (!) 95 36.8 ?C (98.3 ?F) Oral 22 99 % 50.3 kg (111 lb) -- Physical Exam Constitutional: General: She is not in acute distress. Appearance: She is ill-appearing. She is not toxic-appearing or diaphoretic. HENT: Head: Normocephalic and atraumatic. Right Ear: Tympanic membrane, ear canal and external ear normal. Left Ear: Tympanic membrane, ear canal and external ear normal. Nose: Nose normal. (more content not included)... Normal [facility] ED PROV NOTE HNO ID: [id number] Author: INOCENTE SPANGLER MD Service: Emergency Medicine Author Type: Physician Type: ED Provider Notes Filed: 08/06/2024 13:45 Note Text: ED Provider Note Patient Name: Cj Gillis : 1940 SERVICE DATE: 08/06/24 History Patient presents with: Fall Hip Pain Pain (Shoulder Pain) Ms. Gillis is an 84-year-old female with history of DVT and rheumatic fever and type 2 diabetes, dementia, lives in a memory care unit, found by staff after she fell at about 720, about an hour prior to arrival. She started Bactrim last night for a UTI. After the fall, which was unwitnessed, she complained of right shoulder and rib and hip discomfort. She presently has no complaint. She arrives via EMS. She has DNR CCA status in her paperwork. PAST MEDICAL HISTORY Diagnosis Date - Atrophic gastritis without mention of hemorrhage - BENIGN HYPERTENSION 08/04/2003 - Diarrhea - Diverticulosis of colon (without mention of hemorrhage) - DVT (deep venous thrombosis) (HCC) - Esophagitis, unspecified - Gall bladder disease - GEN OSTEOARTHROS-HAND - Heart murmur - Hyperlipidemia - Irregular heart beat 04/28/2009 - JOINT PAIN-ANKLE - Other and unspecified hyperlipidemia - Pain in limb - Peripheral vascular disease, unspecified (HCC) h/o DVT/PE - PERS HX VENOUS THROMB/EMBOLISM 02/04/2003 - Pulmonary embolism (HCC) late 1980s around the time of foot surgery - Rheumatic fever - TB (tuberculosis) 04/28/2009 Age 17-18 - Type II or unspecified type diabetes mellitus without mention of complication, not stated as uncontrolled - Unspecified essential hypertension - Unspecified pulmonary tuberculosis, confirmation unspecified h/o TB PAST SURGICAL HISTORY Procedure Laterality Date - ANTERIOR COLPORRAPHY RPR CYSTOCELE W/CYSTO 1996 cystocele/rectocele/bladder susp - ARTHROSCOPY KNEE DIAGNOSTIC W/WO SYNOVIAL BX SPX Arthroscopy, knee - ARTHRP KNE CONDYLEANDPLATU MEDIALANDLAT COMPARTMENTS 02/10/03 bilateral total knee arthroplasty - CHOLECYSTECTOMY remote - COLONOSCOPY FLX DX W/COLLJ SPEC WHEN PFRMD 04/10/05 Colonoscopy - COLONOSCOPY FLX DX W/COLLJ SPEC WHEN PFRMD 04/11/12 Colonoscopy repeat 10 years - COLONOSCOPY FLX DX W/COLLJ SPEC WHEN PFRMD 07/31/2018 Colonoscopy - COLPOPEXY, VAGINAL EXTRAPERITONEAL 02/02/16 - ESOPHAGOGASTRODUODENOSCOPY TRANSORAL DIAGNOSTIC 04/11/12 EGD - PAST SURGICAL HISTORY OF Cataract surgery, bilateral 2012 FAMILY HISTORY Problem Relation Age of Onset - Ischemic Heart Disease Father FROM BLOOD CLOT AFTER CABG - other (hyperlipidemia [Other]) Father - DVT Mother varicois veins - None Brother Social History Tobacco Use - Smoking status: Never - Smokeless tobacco: Never Vaping Use - Vaping status: Never Used Substance and Sexual Activity - Alcohol use: No - Drug use: No - Sexual activity: Not on file ALLERGIES Allergen Reactions - Celecoxib PALPITATIONS - Lipitor [Atorvastat* Other: See Comments Suspects lipitor decreases her hearing loss and tinnitus and liver spots. - Morphine GI Upset - Opioids-Meperidine * GI Upset - Rofecoxib PALPITATIO;NS Review of Systems Unable to perform ROS: Dementia Physical Exam Vitals BP Pulse Temp Temp src Resp SpO2 Weight Height -- -- -- -- -- -- -- -- Physical Exam Vitals and nursing note reviewed. Constitutional: General: She is not in acute distress. Appearance: She is well-developed. HENT: Head: Normocephalic and atraumatic. Eyes: Pupils: Pupils are equal, round, and reactive to light. Neck: Trachea: No tracheal deviation. Comments: No C-spine tenderness or step-off, reasonable range of motion Cardiovascular: Rate and Rhythm: Normal rate. Heart sounds: No murmur heard. No friction rub. No gallop. Pulmonary: Effort: Pulmonary effort is normal. No respiratory distress. Breath sounds: Normal breath sounds. No wheezing or rales. Comments: No tenderness on my exam Abdominal: General: Bowel sounds are normal. There is no distension. Palpations: Abdomen is soft. Tenderness: There is no abdominal tenderness. There is no guarding or rebound. Comments: No tenderness Musculoskeletal: General: Normal range of motion. Cervical back: Normal range of motion and neck supple. Comments: Right hip possibly shorter than left, though no pain with logroll or direct palpation of right hip, no pain with palpation of either shoulder or humerus or elbow or radius or ulna or wrist or hand or femur or knee, can extend both knees, no tenderness of tibia or fibula or ankle or feet bilaterally, can move both feet and hands without difficulty Lymphadenopathy: Cervical: No cervical adenopathy. Skin: General: Skin is warm and dry. Findings: No erythema. Neurological: Mental Status: She is alert. Cranial Nerves: No cranial nerve deficit. Motor: No abnormal muscle tone. Comments: Mildly confused, no obvious aph (more content not included)... Normal [facility] EKGon 08-06-2024 Electrocardiogram Ventricular Rate : 9 7 BPM Atrial Rate : 97 BPM P-R Interval : 114 ms QRS Duration : 132 ms Q-T Interval : 384 ms QTC Calculation(Bazett) : 487 ms Calculated P [place] : 15 degrees Calculated R [place] : 47 degrees Calculated T [place] : 141 degrees NORMAL SINUS RHYTHM LEFT BUNDLE BRANCH BLOCK ABNORMAL ECG no STEMI by Carlin-modified Sgarbossa criteria Confirmed by INOCENTE SPANGLER MD ([id number]) on 08/06/2024 9:08:38 AM NAME : CJ GILLIS PID : [id number] : 1940 Gender : Female Race : ORD : Procedure Date : Aug 06 2024 09:01:04 Edit Date : Aug 06 2024 09:08:42 Diagnosis: NORMAL SINUS RHYTHM LEFT BUNDLE BRANCH BLOCK ABNORMAL ECG no STEMI by Carlin-amy Sgarbossa criteria Confirmed by INOCENTE SPANGLER MD ([id number]) on 08/06/2024 9:08:38 AM Test Reason : Location : 1 : ER ED Overread By : INOCENTE SPANGLER MD Edited By : INOCENTE SPANGLER MD Referred By : , Acquired by : Rojelio FOSS [facility] HIGH SENSITIVITY TROPONIN T (INITIAL)on 08-06-2024 Troponin T.cardiac High sensitivity method [Mass/Vol] 14 ng/L High <12 [facility] Comment on above: Order Comment: Speci men Type: BLOOD SPECIMENOrdering Facility: [facility] Address: [address] [place] [address] Performed By: #### 3 3762-6, 41444-6, 40714-4, [id number] ####[facility]ORATORYCLIA [id number] [address] HIGH SENSITIVITY TROPONIN T (SECOND)on 08-06-2024 Troponin T.cardiac High sensitivity method [Mass/Vol] 14 ng/L High <12 [facility] Comment on above: Order Comment: Speci men Type: BLOOD SPECIMENOrdering Facility: [facility] Address: [address] [place] [address] Performed By: #### L [id number] ####[facility] LABORATORYCLIA [id number] [address] HIGH SENSITIVITY TROPONIN T (THIRD) 3 HRS AFTER INITIALon 08-06-2024 Troponin T.cardiac High sensitivity method [Mass/Vol] 13 ng/L High <12 [facility] Comment on above: Order Comment: Speci men Type: BLOOD SPECIMENOrdering Facility: [facility] Address: [address] [place] [address] Performed By: #### L [id number] ####[facility] LABORATORYCLIA [id number] [place] [id number] [facility] HISTORY PHYSICALon HISTORY PHYSICAL HNO ID: [id number] Author: CHAPARRO NAVA MD Service: Hospital Medicine Author Type: Physician Type: H&P Filed: 08/06/2024 23:03 Note Text: DEPARTMENT OF HOSPITAL MEDICINE HISTORY AND PHYSICAL EXAM SERVICE DATE: 08/06/2024 SERVICE TIME: 6:06 PM Primary Care Physician: Carlos Herron MD NIGHT AND WEEKEND COVERAGE: [place] COVERAGE: From 7am - 7pm, please call After 7pm, please call cross cover pager #[phone] Subjective CHIEF COMPLAINT: renal calculus and fall HPI: Patient is a 84-year-old female with a past medical history significant for type 2 diabetes mellitus, CAD, hypertension, hyperlipidemia, osteoarthritis, urge incontinence, history of prior DVT and PE not on any anticoagulation at this time, dementia with a baseline mentation of AANDO x 1 who presented to [facility] ED for renal calculus and fall. Patient is from a nursing facility. Given patient's mentation, history obtained from patient's daughter. She had an unwitnessed fall and had imaging done. Imaging negative for fracture but it did show 5 mm left UVJ stone. She was initially brought to [place] ED and was then transferred to [place]. At the nursing facility, there was some concern for UTI as well and she received 1 dose of Bactrim at nursing facility and Rocephin at outside ED. she was transferred to [facility] From outside ED so that she can be evaluated by urology for her left renal calculus. In ED, heart rate elevated at 108. Lab work significant for magnesium 1.4, WBC 17.31, proBNP 1831. Initial troponin noted to be 14 and repeat noted to be 14 and 13. Lactate 2.8. Urinalysis showed 3+ leukocyte esterase, WBC and rare bacteria. Urine culture obtained. X-ray of the abdomen showed 7 mm left pelvic calcification, can correspond to the distal left ureteral calculus seen on the CT. CT of the abdomen pelvis showed mild obstructive 5 mm stone at the left UVJ. Questionable punctate left renal stone. CT brain and CT cervical spine showed no acute intracranial hemorrhage identified. White matter changes. No acute fractures demonstrated in cervical spine and cervical spine degenerative changes with multilevel disc space narrowing. Patient was seen by urology while in the ED and they recommended admission to medicine. She is currently n.p.o. for surgical management. Patient was started on tamsulosin and tramadol per urology. She was admitted for further evaluation and management. PAST MEDICAL HISTORY Diagnosis Date Atrophic gastritis without mention of hemorrhage BENIGN HYPERTENSION 08/04/2003 Diarrhea Diverticulosis of colon (without mention of hemorrhage) DVT (deep venous thrombosis) (HCC) Esophagitis, unspecified Gall bladder disease GEN OSTEOARTHROS-HAND Heart murmur Hyperlipidemia Irregular heart beat 04/28/2009 JOINT PAIN-ANKLE Other and unspecified hyperlipidemia Pain in limb Peripheral vascular disease, unspecified h/o DVT/PE PERS HX VENOUS THROMB/EMBOLISM 02/04/2003 Pulmonary embolism (HCC) late 1980s around the time of foot surgery Rheumatic fever TB (tuberculosis) 04/28/2009 Age 17-18 Type II or unspecified type diabetes mellitus without mention of complication, not stated as uncontrolled Unspecified essential hypertension Unspecified pulmonary tuberculosis, confirmation unspecified h/o TB PAST SURGICAL HISTORY Procedure Laterality Date ANTERIOR COLPORRAPHY RPR CYSTOCELE W/CYSTO 1996 cystocele/rectocele/bladder susp ARTHROSCOPY KNEE DIAGNOSTIC W/WO SYNOVIAL BX SPX Arthroscopy, knee ARTHRP KNE CONDYLEANDPLATU MEDIALANDLAT COMPARTMENTS 02/10/03 bilateral total knee arthroplasty CHOLECYSTECTOMY remote COLONOSCOPY FLX DX W/COLLJ SPEC WHEN PFRMD 04/10/05 Colonoscopy COLONOSCOPY FLX DX W/COLLJ SPEC WHEN PFRMD 04/11/12 Colonoscopy repeat 10 years COLONOSCOPY FLX DX W/COLLJ SPEC WHEN PFRMD 07/31/2018 Colonoscopy COLPOPEXY, VAGINAL EXTRAPERITONEAL 02/02/16 ESOPHAGOGASTRODUODENOSCOPY TRANSORAL DIAGNOSTIC 04/11/12 EGD PAST SURGICAL HISTORY OF Cataract surgery, bilateral 2012 FAMILY HISTORY Problem Relation Age of Onset Ischemic Heart Disease Father FROM BLOOD CLOT AFTER CABG other (hyperlipidemia [Other]) Father DVT Mother varicois veins None Brother Social History Tobacco Use Smoking status: Never Smokeless tobacco: Never Vaping Use Vaping status: Never Used Substance Use Topics Alcohol use: No Drug use: No PRIOR TO ADMISSION MEDICATIONS: Prior to Admission Medications Prescriptions Last Dose Informant Patient Reported? Taking? COMPOUNDED PRESCRIPTION No No Sig: If patient presents with allergic reaction, please check tryptase level and fax results to Dr. Sprague at [phone] DULoxetine (CYMBALTA) 30 mg capsule No No Sig: Take 1 capsule by mouth twice daily. Patient taking differently: Take 30 mg by mouth once daily. Lancets lancets No No Sig: Test Two times a day. Insulin Dep? No E11.9 DM 2 Potassium 99 mg ta (more content not included)... Normal [facility] Lactate (Bld) [Moles/Vol]on 05-07-2025 Lactate [Moles/Vol] 2.3 mmol/L High 0.5-2.2 [facility] Comment on above: Order Comment: Speci men Type: BLOOD SPECIMEN Ordering Facility: [facility] Address: [address] [place] [address] Performed By: #### 3 2693-4 #### [facility] CLIA [id number] [address] STATES OF [facility] Lactate [Moles/Vol] 2.3 mmol/L High 0.5-2.2 [facility] Comment on above: Order Comment: Speci men Type: BLOOD SPECIMEN Ordering Facility: [facility] Address: [address] [place] [address] Performed By: #### 3 2693-4 #### [facility] CLIA [id number] [address] OF [facility] Magnesium SerPl-ncon 08-06 Magnesium [Mass/Vol] 1.4 mg/dL Low 1.7-2.3 [facility] Comment on above: Order Comment: Speci men Type: BLOOD SPECIMENOrdering Facility: [facility] Address: [address] [place] [address] Performed By: #### 3 3762-6, 32273-1, 91471-2, [id number] ####[facility] [id number] [address] OF [place] NT-proBNP SerPl-mCncon 08-06 Natriuretic peptide.B prohormone N-Terminal [Mass/Vol] 1831 pg/mL High <450 [facility] Comment on above: Order Comment: Speci men Type: BLOOD SPECIMENOrdering Facility: [facility] Address: [address] [place] [address] Performed By: #### 3 3762-6, 89307-6, 46507-5, [id number] ####[facility]IA [id number] [address] [place] OF [place] NURSING PROGon 08-06-2024 NURSING PROG HNO ID: [id number] Author: ETHAN FLORES, INDIRA Service: Nursing Author Type: Registered Nurse Type: Nursing Progress Note Filed: 08/06/2024 19:50 Note Text: Please contact Daughter Guerita Rivera [phone] with any concerns or updates. Patient's is elderly as well and not present with the patient in the hospital. Normal [facility] OPERATIVE NOon 08-06-2024 OPERATIVE NO HNO ID: [id number] Author: REY ROWAN MD Service: Urology Author Type: Physician Type: Operative Report Filed: 08/07/2024 13:54 Note Text: OPERATIVE/PROCEDURE REPORT LOG ID: [id number] SURGERY/PROCEDURE DATE: 08/06/2024 INCISION/PROCEDURE START TIME: 6:47 PM INCISION CLOSE/PROCEDURE END TIME: 6:54 PM SURGEON(S)/PROCEDURALIST(S) AND RADIO REPAIRMAN(S): Surgeons and Role: * Rey Rowan MD - Primary * Gorge Gaspar MD - Resident - Assisting No Additional Staff SURGERY/PROCEDURE(S): Cystoscopy, retrograde pyelogram, left ureteral stent placement ANESTHESIA: Monitored Anesthesia Care SURGERY/PROCEDURE DETAILS: Cj Gillis is a 84 year old patient who presents with left ureteral calculus. After having a discussion on treatment options, risks and benefits, the patient wishes to proceed forward with surgical intervention. Patient was brought to the operating room and identified using name band/number. A thorough time out was performed and everyone present was in agreement. Patient was placed on OR table. Anesthesia and lines were maintained by the anesthesia team. Patient was placed in the dorsal lithotomy position, prepped with Betadine, and draped in the usual sterile fashion. Pressure points were padded. SCDs were on and functioning prior to the beginning of the procedure. A 22F cystourethroscope was inserted transurethrally into the bladder. There were no urethral strictures present. Pancystoscopy demonstrated unremarkable bladder. Bilateral ureteral orifices were in normal anatomic position. A Solo wire was placed up the left ureter to the renal pelvis. A 5 fr open ended catheter was advanced over the wire to the renal pelvis. Contrast was injected. Left retrograde pyelogram demonstrated some tortuosity of proximal ureter but able to get contrast throughout renal pelvis, which was mildly hydronephrotic. The UPJ to UVJ distance was 28 cm. Wire was replaced and catheter removed. A 6 frisian 28 cm double j ureteral stent was passed over the wire. Once in position the wire was removed. Good coil was noted in the renal pelvis and in the bladder under fluoroscopic guidance. The patient's bladder was emptied, any remaining calculi fragments flushed out, and the cystoscope was removed. Yan catheter was placed and hooked to gravity drainage. Patient awoken from anesthesia having tolerated the procedure well. Cj Gillis Was transferred to recovery room. PRE-OP/PRE-PROCEDURE DIAGNOSIS: left ureteral calculus POST-OP/POST-PROCEDURE DIAGNOSIS: same ESTIMATED BLOOD LOSS: 0 ml SPECIMENS: None IMPLANTABLE DEVICES: NONE STENT: 6Fr x 28cm ureteral stent no string COMPLICATIONS: None PARTICIPATION IN SURGERY/PROCEDURE: I/primary surgeon/proceduralist performed the procedure with assistance. Gorge Gaspar MD PGY-2 Urology Resident 08/06/2024 7:12 PM I was present for the entire procedure. Rey Rowan MD Normal [facility] PT panel Coag (PPP)on 2024 INR Coag (PPP) [Relative time] 1.1 {INR} Normal 0.9-1.3 [facility] Comment on above: Order Comment: Speci men Type: BLOOD SPECIMENOrdering Facility: [facility] Address: [address] [place] [address], [place] [address] Result Comment: Marleni min K Antagonist (VKA) Therapeutic Range: INR 2 to 3 (Target INR of 2.5) Note: For patients treated with VKA drugs, such as warfarin, the [place] [employer] 2012 Guideline recommends a therapeutic INR range of 2 to 3 (target INR of 2.5). This recommendation includes high-risk patients with antiphospholipid syndrome with previous arterial or venous thromboembolism, current-generation mechanical or bioprosthetic aortic heart valve replacement. Note: Patients with mechanical aortic valve replacement and additional risk factors for thromboembolic events (atrial fibrillation, previous thromboembolism, LV dysfunction, hypercoagulable conditions) or an older generation mechanical AVR (i.e., ball in-Cage) or any mechanical MVR should have a INR therapeutic range of 2.5 to 3.5 (target INR of 3). Diane GH, et al. Chest 2012, 141:7S-47S Twyla HAWLEY et al. JACC 2017, 70: 252-289 Performed By: #### 3 4528-0, 32074-7 ####[facility] LABORATORYCLIA [id number] [place] [address] [place] PT Coag (PPP) [Time] 11.7 s Normal 9.7-13.0 [facility] Comment on above: Order Comment: Speci men Type: BLOOD SPECIMENOrdering Facility: [facility] Address: [address] [place] [address] Performed By: #### 3 4528-0, 77614-3 ####[facility] LABORATORYCLIA [id number] [place] [id number] [facility] INR Coag (PPP) [Relative time] 1.1 {INR} Normal 0.9-1.3 [facility] Comment on above: Order Comment: Alex ruffin Type: BLOOD SPECIMEN Ordering Facility: [facility] Address: [address] [place] [address] Result Comment: Marleni min K Antagonist (VKA) Therapeutic Range: INR 2 to 3 (Target INR of 2.5) Note: For patients treated with VKA drugs, such as warfarin, the [place] [employer] 2012 Guideline recommends a therapeutic INR range of 2 to 3 (target INR of 2.5). This recommendation includes high-risk patients with antiphospholipid syndrome with previous arterial or venous thromboembolism, current-generation mechanical or bioprosthetic aortic heart valve replacement. Note: Patients with mechanical aortic valve replacement and additional risk factors for thromboembolic events (atrial fibrillation, previous thromboembolism, LV dysfunction, hypercoagulable conditions) or an older generation mechanical AVR (i.e., ball in-Cage) or any mechanical MVR should have a INR therapeutic range of 2.5 to 3.5 (target INR of 3). Diane GH, et al. Chest 2012, 141:7S-47S Twyla RA et al. [facility] 2017, 70: 252-289 Performed By: #### 3 4528-0, 54201-3 #### [facility] CLIA [id number] [address] [place] [id number] [place] [address] [place] PT Coag (PPP) [Time] 12.0 s Normal 9.7-13.0 [facility] Comment on above: Order Comment: Speci men Type: BLOOD SPECIMEN Ordering Facility: [facility] Address: [address] [place] [address] Performed By: #### 3 4528-0, 38181-7 #### [facility] CLIA [id number] [address] [place] [address] [place] Urinalysis complete panel (U )on 08-06-2024 Bacteria LM.HPF (Urine sed) [#/Area] Rare Abnormal None Seen [facility] Comment on above: Order Comment: Speci men Type: URINE SPECIMENOrdering Facility: [facility] Address: [address] [place] [address] Performed By: #### 2 4356-8 ####[facility]ORYCLIA [id number] [address] [place]#### 630-4 ####[facility] LABCLIA [id number] [place] [address] [place] Bilirubin Ql (U) Negative Normal Negative [facility] Comment on above: Order Comment: Speci men Type: URINE SPECIMENOrdering Facility: [facility] Address: [address] [place] [address] Performed By: #### 2 4356-8 ####[facility]ORYCLIA [id number] [address] OF [place]#### 630-4 ####[facility] LABCLIA [id number] [place] [address] [place] Clarity (Unsp spec) Slightly Cloudy Abnormal Clear [facility] Comment on above: Order Comment: Speci men Type: URINE SPECIMENOrdering Facility: [facility] Address: [address] [place] [address] Performed By: #### 2 4356-8 ####[facility]ORYCLIA [id number] [place] [address] [place]#### 630-4 ####[facility] LABCLIA [id number] [place] [address] [place] Color (U) Yellow Normal Yellow [facility] Comment on above: Order Comment: Speci men Type: URINE SPECIMENOrdering Facility: [facility] Address: [address] [place] [address] Performed By: #### 2 4356-8 ####[facility]ORYCLIA [id number] [place] [address] [place]#### 630-4 ####[facility] LABCLIA [id number] [place] [address] [place] Glucose Test strip (U) [Mass/Vol] Negative Normal Negative [facility] Comment on above: Order Comment: Speci men Type: URINE SPECIMENOrdering Facility: [facility] Address: [address] [place] [address] Performed By: #### 2 4356-8 ####[facility]ORYCLIA [id number] [place] [address] [place]#### 630-4 ####[facility] LABCLIA [id number] [place] [address] [place] Hemoglobin Ql (U) 1+ Abnormal Negative [facility] Comment on above: Order Comment: Speci men Type: URINE SPECIMENOrdering Facility: [facility] Address: [address] [place] [address] Performed By: #### 2 4356-8 ####[facility]ORYCLIA [id number] [place] [address] [place]#### 630-4 ####[facility] LABCLIA [id number] [place] [id number] [place] Ketones Ql (U) Negative Normal Negative [facility] Comment on above: Order Comment: Speci men Type: URINE SPECIMENOrdering Facility: [facility] Address: [address] [place] [address] Performed By: #### 2 4356-8 ####[facility]ORYCLIA [id number] [address]#### 630-4 ####[facility] LABCLIA [id number] [place] [address] [place] Leukocyte esterase Test strip Ql (U) 3+ Abnormal Negative [facility] Comment on above: Order Comment: Speci men Type: URINE SPECIMENOrdering Facility: [facility] Address: [address] [place] [address] Performed By: #### 2 4356-8 ####[facility]ORYCLIA [id number] [place] [address] [place]#### 630-4 ####[facility] LABCLIA [id number] [place] [address] [place] Nitrite Ql (U) Negative Normal Negative [facility] Comment on above: Order Comment: Speci men Type: URINE SPECIMENOrdering Facility: [facility] Address: [address] [place] [address] Performed By: #### 2 4356-8 ####[facility]ORYCLIA [id number] [place] [address] [place]#### 630-4 ####[facility] LABCLIA [id number] [place] [address] [place] pH (U) 6.0 [pH] Normal 5.0-8.0 [facility] Comment on above: Order Comment: Speci men Type: URINE SPECIMENOrdering Facility: [facility] Address: [address] [place] [address] Performed By: #### 2 4356-8 ####[facility]ORYCLIA [id number] [place] [address] [place]#### 630-4 ####[facility] LABCLIA [id number] [place] [address] [place] Protein (U) [Mass/Vol] Trace Abnormal Negative [facility] Comment on above: Order Comment: Speci men Type: URINE SPECIMENOrdering Facility: [facility] Address: [address] [place] [address] Performed By: #### 2 4356-8 ####[facility]ORYCLIA [id number] [address] [place]#### 630-4 ####[facility] LABCLIA [id number] [place] [address] [place] RBC LM.HPF (Urine sed) [#/Area] 3-5 /HPF Abnormal 0-3 /HPF [facility] Comment on above: Order Comment: Speci men Type: URINE SPECIMENOrdering Facility: [facility] Address: [address] [place] [address] Performed By: #### 2 4356-8 ####[facility]ORYCLIA [id number] [address]#### 630-4 ####[facility] LABCLIA [id number] [address] [place] Specific gravity (U) [Rel density] 1.020 Normal 1.005-1.03 0 [facility] Comment on above: Order Comment: Speci men Type: URINE SPECIMENOrdering Facility: [facility] Address: [address] [place] [address] Performed By: #### 2 4356-8 ####[facility]ORYCLIA [id number] [address] [place]#### 630-4 ####[facility] LABCLIA [id number] [place] [address] [place] Urobilinogen Ql (U) 0.2 EU/dL Normal 0.2-1.0 EU/dL [facility] Comment on above: Order Comment: Speci men Type: URINE SPECIMENOrdering Facility: [facility] Address: [address] [place] [address] Performed By: #### 2 4356-8 ####[facility]ORYCLIA [id number] [address] [place]#### 630-4 ####[facility] LABCLIA [id number] [address] WBC LM.HPF (Urine sed) [#/Area] /[HPF] Abnormal 0-5 /HPF [facility] Comment on above: Order Comment: Speci men Type: URINE SPECIMENOrdering Facility: [facility] Address: [address] [place] [address] Performed By: #### 2 4356-8 ####[facility]ORYCLIA [id number] [address]#### 630-4 ####[facility] LABCLIA [id number] [address] [place] XR ABDOMEN 1V SUPINEon 08-06 XR ABDOMEN 1V SUPINE * * *Final Report* * * DATE OF EXAM: Aug 06 2024 5:39PM AKX 5289 - XR ABDOMEN 1V SUPINE / PROCEDURE REASON: Kidney stone suspected * * * * Physician Interpretation * * * * TECHNIQUE: XR ABDOMEN 1V SUPINE EXAM DATE: 08/06/2024 5:39 PM COMPARISON STUDIES: CT flank same day CLINICAL HISTORY: Kidney stone suspected RESULT: 7 mm left pelvic calcification, can correspond to the distal left ureter calculus seen on the CT. Additional pelvic phleboliths. No dilated bowel. Osseous degenerative changes. IMPRESSION: 7 mm left pelvic calcification, can correspond to the distal left ureter calculus seen on the CT Security Software Engineer: [facility] Transcribe Date/Time: Aug 06 2024 5:46P Dictated by : EZEQUIEL PAYNE MD This examination was interpreted and the report reviewed and electronically signed by: EZEQUIEL PAYNE MD on Aug 06 2024 5:48PM EST [id number] Normal [facility] XR HIP 3V PELV+ AP/LAT RTon 08-06-2024 XR HIP 3V PELV+ AP/LAT RT * * *Final Report* * * DATE OF EXAM: Aug 06 2024 9:28AM MDX 5352 - XR HIP 3V PELV+ AP/LAT RT / PROCEDURE REASON: Hip pain, acute, fx suspected, initial exam * * * * Physician Interpretation * * * * EXAMINATION / TECHNIQUE: XR HIP 3V PELV+ AP/LAT RT HISTORY: Hip pain, acute, fx suspected, initial exam COMPARISON: 11/23/2015 RESULT: Degenerative changes in the lower lumbar spine. SI joints and symphysis pubis intact. Minor degenerative narrowing at the hips. No acute fracture or dislocation. IMPRESSION: No acute fracture. Security Software Engineer: [facility] Transcribe Date/Time: Aug 06 2024 9:37A Dictated by : KELLY CURRIE MD This examination was interpreted and the report reviewed and electronically signed by: KELLY CURRIE MD on Aug 06 2024 9:39AM EST [id number] [facility] XR RIB/CHST 3V AP RIB/OBL/CH [facility] 08-06-2024 XR RIB/CHST 3V AP RIB/OBL/CHST R * * *Final Report* * * DATE OF EXAM: Aug 06 2024 9:28AM MDX 5244 - XR RIB/CHST 3V AP RIB/OBL/CHST R / PROCEDURE REASON: Trauma * * * * Physician Interpretation * * * * History: Trauma FINDINGS: CHEST/RIBS Frontal view of the chest and multiple views of the right ribs have been obtained. The heart is enlarged. The lungs are clear of infiltrate. There is no pleural effusion or pneumothorax. Osseous structures are osteopenic with no acute bony abnormality seen. RIGHT SHOULDER Postsurgical anchors noted over the right humeral head. Degenerative changes of the right shoulder are noted with narrowing of the acromiohumeral joint space with upward migration of the humeral head and chronic changes of the humeral head. RIGHT HIP AP view of the pelvis and AP and frog-leg lateral views of the right hip have been obtained. The bones are osteopenic. Joint spaces appear maintained. There is no acute fracture or dislocation. Multiple phleboliths noted within the pelvis. IMPRESSION: No acute bony abnormality is seen. Security Software Engineer: [facility] Transcribe Date/Time: Aug 06 2024 9:34A Dictated by : HEATHER YUNG MD This examination was interpreted and the report reviewed and electronically signed by: HEATHER YUNG MD on Aug 06 2024 9:37AM EST [id number] Normal [facility] XR SHLDR >/=3V AP/GHASSAN AP/OTH R RTon 08-06-2024 XR SHLDR >/=3V AP/GHASSAN AP/OTHR RT * * *Final Report* * * DATE OF EXAM: Aug 06 2024 9:28AM MDX 5253 - XR SHLDR >/=3V AP/GHASSAN AP/OTHR RT / PROCEDURE REASON: Trauma * * * * Physician Interpretation * * * * History: Trauma FINDINGS: CHEST/RIBS Frontal view of the chest and multiple views of the right ribs have been obtained. The heart is enlarged. The lungs are clear of infiltrate. There is no pleural effusion or pneumothorax. Osseous structures are osteopenic with no acute bony abnormality seen. RIGHT SHOULDER Postsurgical anchors noted over the right humeral head. Degenerative changes of the right shoulder are noted with narrowing of the acromiohumeral joint space with upward migration of the humeral head and chronic changes of the humeral head. RIGHT HIP AP view of the pelvis and AP and frog-leg lateral views of the right hip have been obtained. The bones are osteopenic. Joint spaces appear maintained. There is no acute fracture or dislocation. Multiple phleboliths noted within the pelvis. IMPRESSION: No acute bony abnormality is seen. Security Software Engineer: [employer] Transcribe Date/Time: Aug 06 2024 9:34A Dictated by : HEATHER YUNG MD This examination was interpreted and the report reviewed and electronically signed by: HEATHER YUNG MD on Aug 06 2024 9:37AM EST [id number] [facility] aPTT PPPon 08-06-2024 aPTT Coag (PPP) [Time] 30.2 s Normal 23.0-32.4 [facility] Comment on above: Order Comment: Speci men Type: BLOOD SPECIMENOrdering Facility: [facility] Address: [address] [place] [address] Performed By: #### 3 4528-0, 93398-2 ####[facility] LABORATORYCLIA [id number] [place] [address] [place] aPTT Coag (PPP) [Time] 29.8 s Normal 23.0-32.4 [facility] Comment on above: Order Comment: Speci men Type: BLOOD SPECIMENOrdering Facility: [facility] Address: [address] [place] [address] Performed By: #### 3 4528-0, 32829-6 ####[facility]ORYCLIA [id number] [place] [address] [place] Hemoglobin A1c percentageOrd ered By: Demario Coates on 06-12-2024 HbA1c (Bld) [Mass fraction] 7.0 % >5.7 [facility] Vitamin D, 25-hydroxyOrdered By: Demario Coates on 06-12-2024 Vitamin D 25-Hydroxy 37.9 ng/mL 30-100 [facility] Comment on above: Vitamin D StatusDefi ciency: <20 ng/mL (50nmol/L)Insufficiency: 20-30 ng/mL (50-75 nmol/L)Sufficiency: 30-100 ng/mL (75-250 nmol/L)Toxicity: >100 ng/mL (>250 nmol/L) Albumin to globulin ratioOrd ered By: Demario Coates on 05-12-2024 Albumin/Globulin [Mass ratio] 0.8 {ratio} Low 0.9-2.4 [facility] Bilirubin, totalOrdered By: Demario Coates on 05-12-2024 Bilirubin [Mass/Vol] 0.50 mg/dL 0.20-1.00 [facility] Comment on above: For patients on eltr ombopag therapy, use of [facility] [place] TBIL is not recommended. Blood urea nitrogen (BUN)/cr eatinine ratioOrdered By: Demario Coates on 05-12-2024 Urea nitrogen/Creatinine [Mass ratio] 17.6 mg/mg 10-20 [facility] Carbon dioxide measurementOr dered By: Demario Coates on 05-12-2024 CO2 [Moles/Vol] 26.0 mmol/L 21.0-32.0 [facility] Chloride measurementOrdered By: Demario Coates on 05-12-2024 Chloride [Moles/Vol] 106 mmol/L 98-107 [facility] Erythrocyte distribution wid th (RBC) [Ratio]Ordered By: Demario Coates on 05-12-2024 Erythrocyte distribution width (RBC) [Entitic vol] 42.3 fL 35.1-43.9 [facility] Erythrocyte distribution wid th ratioOrdered By: Demario Coates on 05-12-2024 Erythrocyte distribution width (RBC) [Ratio] 12.7 % 11.6-14.6 [facility] Estimated glomerular filtrat ion rate (GFR) AmericanOrdered By: Demario Coates on 05-12-2024 Estimated GFR (MDRD) Amer 96 mL/min >60 [facility] Comment on above: GFR Calc Glomerular filtration rate ( GFR) estimationOrdered By: Demario Coates on 05-12-2024 Estimated GFR (MDRD) Non-Af Amer 80 mL/min >60 [facility] [facility] Comment on above: Non- GFR Calc Glucose measurementOrdered B y: Demario Coates on 05-12-2024 Glucose [Mass/Vol] 125 mg/dL High 74-106 [facility] Comment on above: Fasting Glucose resu lt from 100 to 125 mg/dL suggests IMPAIRED HOMEOSTASIS per A.D.A. criteria. Hematocrit Auto (Bld) [Volum e fraction]Ordered By: Demario Coates on 05-12-2024 Hematocrit (Bld) [Volume fraction] 35.9 % Low 37-47 [facility] Hemoglobin A1c percentageOrd ered By: Demario Coates on 05-12-2024 HbA1c (Bld) [Mass fraction] 7.2 % High 3.8-5.6 [facility] Comment on above: Normal < 5.7 % Predi abetic 5.7 - 6.4 % Diabetic >or= 6.5 % Please note range changes. Hemoglobin measurementOrdere d By: Demario Coates on 05-12-2024 Hemoglobin (Bld) [Mass/Vol] 11.5 g/dL Low 12.0-15.0 [facility] High density lipoprotein (HD L) measurementOrdered By: Demario Coates on 05-12-2024 Cholesterol in HDL [Mass/Vol] 36 mg/dL Low >40 [facility] Comment on above: The drugs N-Acetylcy steine and Metamizole may falsely depress this assay. Reference Range HDL <40 mg/dL Low HDL Cholesterol HDL >or= 60 mg/dL High HDL Cholesterol Laboratory - Chemistry and C hemistry - challengeOrdered By: Demario Coates on 05-12-2024 AST [Catalytic activity/Vol] 12 U/L Low 15-37 [facility] Low density lipoprotein (LDL ) cholesterol measurementOrdered By: Demario Coates on 05-12-2024 Cholesterol in LDL [Mass/Vol] 120 mg/dL 0-130 [facility] MCV (mean corpuscular volume ) determinationOrdered By: Demario Coates on 05-12-2024 MCV (RBC) [Entitic vol] 91.8 fL 81-99 [facility] Mean corpuscular hemoglobin (MCH) determinationOrdered By: Demario Coates on 05-12-2024 MCH (RBC) [Entitic mass] 29.4 pg 27.0-32.0 [facility] Mean corpuscular hemoglobin concentration (MCHC) determinationOrdered By: Demario Coates on 05-12-2024 MCHC (RBC) [Mass/Vol] 32.0 g/dL 32-36 [facility] Mean platelet volume determi nationOrdered By: Demario Coates on 05-12-2024 Platelet mean volume (Bld) [Entitic vol] 10.7 fL 6.2-12.0 [facility] Platelet countOrdered By: Kenrick Coates on 05-12-2024 Platelets (Bld) [#/Vol] 254 10*3/uL 150-450 [facility] Potassium measurementOrdered By: Demairo Coates on 05-12-2024 Potassium [Moles/Vol] 4.1 mmol/L 3.5-5.1 [facility] RBC Auto (Bld) [#/Vol]Ordere d By: Demario Coates on 05-12-2024 RBC (Bld) [#/Vol] 3.91 10*6/uL Low 4.2-5.4 [facility] Serum anion gap measurementO rdered By: Demario Coates on 05-12-2024 Anion gap [Moles/Vol] 8 mmol/L 5-15 [facility] Serum globulin measurementOr dered By: Demario Coates on 05-12-2024 Globulin (S) [Mass/Vol] 3.8 g/dL 2.2-4.2 [facility] Serum or plasma alanine vizcarra otransferase (ALT) measurementOrdered By: Demario Coates on 05-12-2024 ALT [Catalytic activity/Vol] 9 U/L Low 13-56 [facility] Serum or plasma albumin ramiro urement (mass/volume)Ordered By: Demario Coates on 05-12-2024 Albumin [Mass/Vol] 3.2 g/dL 3.2-5.0 [facility] Serum or plasma alkaline santi sphatase measurementOrdered By: Demario Coates on 05-12-2024 ALP [Catalytic activity/Vol] 60 U/L 45-117 [facility] Serum or plasma calcium ramiro urement (mass/volume)Ordered By: Demario Coates on 05-12-2024 Calcium [Mass/Vol] 9.3 mg/dL 8.5-10.1 [facility] Serum or plasma cholesterol measurement (mass/volume)Ordered By: Demario Coates on 05-12-2024 Cholesterol [Mass/Vol] 194 mg/dL <200 [facility] Comment on above: <200 mg/dL Desirable 200-240 mg/dL Borderline >240 mg/dL High Risk Serum or plasma creatinine m easurement (mass/volume)Ordered By: Demario Coates on 05-12-2024 Creatinine [Mass/Vol] 0.74 mg/dL 0.55-1.02 [facility] Comment on above: The validity of the calculated GFR & GFRAA in patients over 70 years has not been determined. Clinical correlation is essential. Serum or plasma urea nitroge n measurement (mass/volume)Ordered By: Demario Coates on 05-12-2024 Urea nitrogen [Mass/Vol] 13 mg/dL 7-18 [facility] Sodium levelOrdered By: Thomas Coates on 05-12-2024 Sodium [Moles/Vol] 140 mmol/L 136-145 [facility] TSH QnOrdered By: Demario saenz on 05-12-2024 Thyroid Stimulating Hormone (TSH) 0.737 uIU/mL 0.358-3.74 0 [facility] Total proteinOrdered By: Colby Coates on 05-12-2024 Protein [Mass/Vol] 7.0 g/dL 6.4-8.2 [facility] Triglycerides measurementOrd ered By: Demario Coates on 05-12-2024 Triglyceride [Mass/Vol] 191 mg/dL <199 [facility] Comment on above: The drugs N-Acetylcy steine and Metamizole may falsely depress this assay.Serum Triglycerides Reference Interval Normal <150 mg/dL Borderline high 150 - 199 mg/dL High 200 - 499 mg/dL Very High > or = 500 mg/dL Very low density lipoprotein (VLDL) cholesterol measurementOrdered By: Demario Coates on 05-12-2024 VLDL Cholesterol 38 mg/dL 5-40 [facility] White blood cell (WBC) count Ordered By: Demario Coates on 05-12-2024 WBC (Bld) [#/Vol] 7.5 10*3/uL 4.4-11.0 [facility] 36on 02-11-2024 36 I would check with Lg mcgee to verify. She just requested records. [facility] 36 Do you want last OV notes sent, or something more? [facility] 36 Spoke with GueritaLakshmi mclean to send records. Please fax to [phone]. Thank you. [facility] 36on 02-04-2024 36 Called and spoke tarvis Art, her , and her daughter Guerita. They feel the loose stools were related to her recent antibiotic for her UTI symptoms. Agreeable to Metformin 1,000 mg twice a day. Plans to cut back on sugar intake. [facility] Office Visiton 02-01-2024 Follow-up visit [id number] Gasper Gillis ra 1940 F Date Provider Department Center 02/01/2024 [id number] MOORE [facility] Family History Problem Relation Age of Onset Lung cancer Mother Depression Mother High Blood Pressure Father Hyperlipidemia Father High Blood Pressure Mother Hearing loss Father Heart attack Father Heart disease Father Coronary artery disease Father Family Status - Relation Status Age at Mother Father Level of Service:G0439 [place] PPPS, SUBSEQ VISIT Reason for Visit and Comments: Medicare Annual Wellness Visit Subsequent [677] Health Maintenance [872] - Dexa- declines Zoster- declines Tdap- declines Pna- declines Covid- not done Blood Work [[id number]] [facility] Progress Noteon 02-01-2024 Progress Note Patient verified by last name and . Normal [facility] Progress Note [facility] [address] [address] Visit type: Established Patient Reason for Visit: Medicare Annual Wellness Visit Subsequent, Health Maintenance (Dexa- declines /Zoster- declines /Tdap- declines /Pna- declines /Covid- not done ), and Blood Work Assessment and Plan 1. Medicare annual wellness visit, subsequent - Encouraged a healthy diet low in cholesterol and saturated fats. - Encouraged regular exercise. 2. Type 2 diabetes mellitus without complication, without long-term current use of insulin ([facility]) ([facility] Diabetes Foot Exam - Comprehensive metabolic panel - Hemoglobin A1c - Encouraged a diet low in carbohydrates and sugar. Discussed increasing Metformin to 1,000 mg twice a day. 3. Diabetic polyneuropathy associated with diabetes mellitus due to underlying condition ([facility] ([facility] Diabetes Foot Exam - Comprehensive metabolic panel - Hemoglobin A1c - Encouraged a diet low in carbohydrates and sugar. Discussed increasing Metformin to 1,000 mg twice a day. 4. Encounter for diabetic foot exam ([facility]) - Diabetes Foot Exam 5. Atherosclerosis of coronary artery of [place] heart without angina pectoris, unspecified vessel or lesion type - metoprolol succinate XL (Toprol-XL) 25 MG 24 hr tablet; Take 0.5 tablets (12.5 mg) by mouth daily. Do not crush or chew., Starting Sun02/01/2024, No Print - Comprehensive metabolic panel - Declines a statin. Strive for a diet low in cholesterol and saturated fats. Continue Metoprolol as prescribed. 6. Essential hypertension, benign - metoprolol succinate XL (Toprol-XL) 25 MG 24 hr tablet; Take 0.5 tablets (12.5 mg) by mouth daily. Do not crush or chew., Starting Sun02/01/2024, No Print - Comprehensive metabolic panel - Stable with Enalapril and Metoprolol. Will continue current treatment plan. 7. Mixed hyperlipidemia - Comprehensive metabolic panel - Lipid panel - Declines a statin. Strive for a diet low in cholesterol and saturated fats. 8. Statin declined 9. Mixed Alzheimer's and vascular dementia (HCC) - Comprehensive metabolic panel - CBC - Progressing. Follow up with specialist as directed. 10. Osteoarthritis, unspecified osteoarthritis type, unspecified site - Comprehensive metabolic panel - CBC - Stable with PRN Tramadol. Will continue current treatment plan. 11. Chronic pain of both feet - Comprehensive metabolic panel - Stable with PRN Tramadol. Will continue current treatment plan. 12. Mild episode of recurrent major depressive disorder (HCC) - Comprehensive metabolic panel - Progressing. Declines medication adjustments at this time. Continue Cymbalta as prescribed. Discussed signs and symptoms warranting immediate attention- verbalized understanding. 13. Recurrent UTI - Comprehensive metabolic panel - POCT Urinalysis dipstick - Urine culture (clean catch) - UA positive for leukocytes and blood. Will send urine for culture and start on antibiotic. 14. Mixed stress and urge urinary incontinence - Comprehensive metabolic panel - Stable. Continue use of depends. 15. Overactive bladder - Comprehensive metabolic panel - Stable. Continue use of depends. 16. Urinary frequency - Comprehensive metabolic panel - CBC - POCT Urinalysis dipstick - Continue use of depends. Will treat for current signs of UTI. 17. Screening for deficiency anemia - CBC - Will notify of blood work results. Follow up in about 3 months (around 05/03/2024) for diabetes management. Subjective HPI- Cj presents today with her daughter for her annual Medicare physical and blood work. Diabetes Mellitus Type II: Most recent hemoglobin A1c was 8.3% on 11/09/23. Known diabetic complications: peripheral neuropathy and cardiovascular disease Cardiovascular risk factors: advanced age (older than 55 for men, 65 for women), diabetes mellitus, dyslipidemia, and hypertension Current diabetic medications include Metformin- 500 mg in the AM and 1,000 mg in the PM and Januvia . Eye exam current (within one year): unknown Dental exam current (within one year): unknown Weight trend: stable Current diet: in general, an unhealthy diet- eats a lot so sugary foods Current exercise: active throughout the day Current monitoring regimen: home blood tests - several times weekly Home blood sugar records: 250's. Interested in getting set up with a continuous glucose monitor due to difficulty with poking her fingers and her memory concerns with her Alzheimer's Any episodes of hypoglycemia? No Is She on LORENE inhibitor or angiotensin II receptor elizabeth? Yes enalapril (Vasotec)- blood pressure is stable today at 108/64 Currently on statin therapy? No - refuses to take statin- adamantly against taking it Last urine microalbumin was 3.2 mg/L on 11/09/23. Last foot exam was 01/29/23. Will do today. Mixed Alzheimer's: Has concerns regarding worsening sympto (more content not included)... Normal [facility] Urinalysis macro (dipstick) panel (U)on 02-01-2024 Bilirubin, UA [facility] h Blood, UA Trace [facility] Glucose, UA Negative [facility] Ketones, POC (mg/dL) Negative [facility] Leukocytes, UA Trace [facility] th Nitrite, UA Negative [facility] pH, UA 6.0 [facility] Protein, UA Trace [facility] Spec Grav, UA 1.030 [facility] Urobilinogen, UA 0.[address] [facility] 36on 01-31-2024 36 Agree, thank you Normal [facility] 36 Spoke to Guerita, she will actually be in with Faby for an appointment tomorrow morning with Rubina, will have urine tested then. Normal [facility] 36 Yes, I think a urina lysis would be in line, if she cannot get it she can have her daughter collect it and bring it here if she can be here before 4:00. Would recommend that she stop and picker and packer a sterile container. Normal [facility] 36 Ashwini from [facility] called stating she saw faby today who complained of dysuria and worse leakage than normal so she is not wanting to drink anything due to this. Ashwini advised her not to do that. States Faby was very repetitive today, more so than normal. Asking if we want any urine testing done? She is not able to send out a sample today but could do it tomorrow unless Faby's daughter can get us a sample today, Ashwini is calling her next. Normal [facility] 36on 01-28-2024 36 Prescription Request : Last medication check: 11/09/23 Last physical exam: 01/29/23 Next scheduled appointment: 02/01/24 Last date of refill on this medication 06/11/23 90 and 1 refill Normal [facility] [id number] 01-24-2024 [id number] Prescription Request : Last medication check: 11/09/23 Last physical exam: 01/29/23 Next scheduled appointment: 02/01/24 CSA 11/09/23 Last date of refill on this medication [facility] 36on 01-24-2024 36 Reviewed chart. Refi ll appropriate. RX sent. [facility] 36on 01-21-2024 36 Sent mychart msg con firming that Guerita picked up the atb [facility] 36 ----- Message from Hali Moore APRN - SUZANNE sent at 01/21/2024 7:05 AM EDT ----- Urine culture is positive for infection. Rx sent for Bactrim. [facility] Progress Noteon 01-16-2024 Progress Note Urine sent for culture. [facility] [id number] 01-10-[id number] Herron, Wanted to give you a heads up regarding Cj. I will get everything together for you, but it looks like the letter of recommendation will need to come from you once we obtain information from the home assessment. Thank you. Rubina Moore APRN - SUZANNE [facility] [id number] Spoke with [facility] and will place an order for a home assessment via [facility] due to reported concerns of recent fall with injury and frequent falls as well as Cj being unsteady on her feet. Per [facility] once home care comes out and records their findings we will need to fax a letter with recommendation for skilled care to [facility]. States this needs to be written by an MD and an [employer] INST[employer] cannot do it. Their fax number is [phone]. Orders placed. [facility] 36on 01-10-2024 36 Rx sent [facility] 36 Received notificatio n from home care that they do not do a one-time visit for assessment for admission to a skilled facility. Willing to establish care with her and do some home care and obtain further documentation. Discussed ER/hospital evaluation for admission due to safety/elopement concerns. I called and updated Cj's daughter, Guerita, and she wants to proceed with home care route for fear of Cj's response to ER/hospital evaluation. Has family present to help manage safety/elopement issues for the time being. Will re-submit home care order and proceed accordingly. [facility] 36 Prescription Request : Last medication check: 11/09/23 Last physical exam: 01/29/23 Next scheduled appointment: 02/01/24 Last date of refill on this medication last prescribed was 500mg tid and was increased to 500mg 2 tablets bid on 11/09/23 but was not sent in [facility] 36 Prescription Request : Last medication check: 11/09/23 Last physical exam: 01/29/23 Next scheduled appointment: 02/01/24 Last date of refill on this medication 07/11/23 90 day 1 refill [facility] 36 01-09-2024 36 Called and spoke travis Johnson. Let her know I have a message out with [employer] in [place] and will update her once I hear back from them. [facility] 36 01-01-2024 36 Prescription Request : Last medication check: 11/09/23 Last physical exam: 01/29/23 Next scheduled appointment:02/01/24 Last date of refill on this medication 07/05/23 [facility] Brain/Head without Contrasto n 01-01-2024 Brain/Head without Contrast [facility] [address] [place] [address] [id number] Brain/Head without Contrast MR#: [id number] Acct: [id number] Name: CJ GILLIS Rep #: [id number] : 1940 F 83 From: Gael estes MD PCP: Dr. Raeann Parsons MD Status: PRE ER Study: Brain/Head without Contrast Date of Exam: 04/25 Exam# [id number] Ordering Dr: Herb Holm DO [id number] STUDY: CT BRAIN WITHOUT CONTRAST REASON FOR EXAM: Female, 83 years old. Injury/Pain RADIATION DOSAGE (If Supplied By Facility): CTDIvol = ( 44.99 ) mGy, DLP = ( 829.85 ) mGycm TECHNIQUE: Transaxial CT imaging of the brain was performed without administration of intravenous contrast material. Individualized dose optimization techniques were used for this CT. COMPARISON: Comparison is made with prior study dated October 16, 2023. FINDINGS: Normal soft tissue structures. Normal calvarium. There is moderate cerebral atrophy with widening of the extra-axial spaces and ventricular dilatation. There are areas of decreased attenuation within the white matter tracts of the supratentorial brain, consistent with microvascular disease changes. 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 Normal brainstem. There is mild cerebellar atrophy. There is no intracranial hemorrhage. There are no findings of an acute ischemic infarction. An air-fluid level is seen in the right maxillary sinus. CT/Brain/Head without Contrast IMPRESSION: Chronic involutional changes of the brain. Air-fluid level seen in the right maxillary sinus. Electronically Signed: Gael Gomez MD at 12:03 EDT Reading Location ID and State: [address] [place] [address] , Service support , CC: Dr. Herb Holm DO; Dr. Raeann Parsons MD Security Software Engineer: Signed Normal [facility] Emergency Department Summary on 01-01-2024 Emergency Department Summary [facility] Medical Records Department [address] [place] [id number] Emergency Department Summary 01/01/24 MR#: [id number] Acct: [id number] Name: CJ GILLIS Rep #: [id number] : 1940 83 From: Herb Holm DO PCP: Dr. Carlos Herron MD Status:DEP ER Location: ED HPI History of Present Illness Chief Complaint: Head Injury Informant: patient, spouse/S.O. and family Onset/Context/Timing Onset: Today Mechanism/Context: Fall and Trip Quality of Pain: Dull and Aching Location: Right lateral eyebrow and periorbital area Worsened by: Turning her head Relieved by: Tylenol, tramadol Associated Symptoms Associated Symptoms: Positive for Inability to ambulate (Patient was unable to ambulate initially but was able to ambulate after she was helped up) and Loss of consciousness (Patient is unsure if she lost consciousness but does not think so.); Negative for Parasthesias, Weakness or Loss of function Narrative Narrative: Patient presents after a fall that occurred this morning. Patient walked out onto her front porch when she fell and hit her head on a porch swing. Patient is unsure if there was any loss of consciousness. Patient states she had difficulty getting up after the fall. Patient states her pain is worse when she turns her head. Patient states he took Tylenol and tramadol at home which helped the pain the patient states her last tetanus was within 5 years. Patient describes her pain as dull and aching. Patient states it is over the right periorbital area. applied Band-Aid dressing prior to arrival. Tetanus Immunization: <5 years [facility] Medical History Heart murmur Hypercholesteremia Tuberculosis Home Medications ???Medication ???Instructions ???Recorded ???Last Taken ???Type enalapril maleate 5 mg tablet 5 mg PO DAILY 09/19/13 Unknown History metformin 500 mg tablet 500 mg PO TIDCM 09/19/13 Unknown History niacin 500 mg tablet,extended 1,000 mg PO DAILY 09/19/13 Unknown History release 24 hr tramadol 50 mg tablet 50 mg PO Q6H PRN PRN Pain 09/19/13 Unknown History amlodipine 5 mg tablet 5 mg PO DAILY 09/05/16 Unknown History aspirin 325 mg tablet 325 mg PO DAILY@0800 09/05/16 Unknown History sitagliptin phosphate 100 mg 100 mg PO DAILY 09/05/16 Unknown History tablet (Januvia) lidocaine 4 % topical patch 1 patch topical BID PRN pain #30 ea 10/16/23 Unknown Rx (Lidocaine Pain Relief) ondansetron 4 mg disintegrating 4 mg PO TID PRN nausea and 10/16/23 Unknown Rx tablet vomiting #21 tabs oxycodone-acetaminophen 5 mg-325 1 tab PO Q6H PRN pain 3 days #12 10/16/23 Unknown Rx mg tablet (Percocet) tabs Allergy/AdvReac Type Severity Reaction Status Date / Time celecoxib (From Celebrex) AdvReac Nausea Verified 01/01/24 10:15 Opioids - Morphine Analogues AdvReac Nausea Verified 01/01/24 10:15 rofecoxib (From Vioxx) AdvReac Nausea Verified 01/01/24 10:15 Vhyyfzc-DKO-OdD Reductase AdvReac Pain in Verified 01/01/24 10:15 Inhibitor (Trqgtfj-Rje-Gje joints Reductase Inhibitor) Surgical History History of cholecystectomy History of appendectomy Social History Smoking Status: Never smoker ROS ROS ED Constitutional Constitutional ED: Denies chills or fever(s) Eyes Eyes: Reports blurry vision ENT ENT ED: Denies rhinorrhea or sore throat Cardiovascular Cardiovascular: Denies chest pain or palpitations Respiratory/Chest Respiratory/Chest: Denies cough or dyspnea Gastrointestinal Gastrointestinal: Denies nausea or vomiting Genitourinary Genitourinary ED: Denies dysuria or hematuria Musculoskeletal Musculoskeletal: Denies back pain or neck pain Integumentary Denies abscess or rash Neurologic Neurologic: Reports headache(s); Denies weakness Allergic/Immunologic Allergic/Immunologic ED: Denies mouth swelling or urticaria EXAM Physical Exam Const Vital Signs: 01/01/24 10:14 01/01/24 11:12 01/01/24 12:14 Temperature 98.1 F 98.9 F Temperature Source Temporal Temporal Pulse Rate 81 64 Respiratory Rate 14 14 Respiratory Effort Normal Non-Labored Respiratory Depth Normal Blood Pressure 130/67 H 138/78 H Blood Pressure Mean 88 98 Pulse Ox 100 98 Oxygen Delivery Method Room Air Room Air Positive well nourished and well developed General Appearance ED: well developed HEENT HEENT Narrative: There is a 2.2 cm full-thickness linear laceration of the lateral aspect of the right eyebrow. There is moderate gapping of the wound margins. There is mild bleeding. There are no foreign bodies noted. Eyes PERRL and EOMs intact bilaterally Neck full ROM Resp n (more content not included)... Normal [facility] [id number] 12-24-2023 [id number] Rx sent. [facility] repor t reviewed with no discrepancies. CSA signed in November 2023. [facility] [id number] Medication that the patient is discussing (include dose/route/frequency as available): Tramadol 50mg q8h prn CSA signed 11/09/23, last refill 11/26/23 Summary of question: requesting refill Normal [facility] [id number] 11-26-2023 [id number] Rx sent. [facility] repor t reviewed with no discrepancies. CSA signed this month. Normal [facility] [id number] CSA 11/09/2023 Med pended. [facility] 36on 11-12-2023 36 Guerita was notified. Normal [facility] 36 FYI. [facility] 36 ----- Message from CHONG Johnson CNP sent at 11/12/2023 12:13 PM EDT ----- Normal urine protein level. Left a message to return call. [facility] Microalbumin/Creatinine rati o panel (U)on 11-12-2023 Albumin DL <= 20 mg/L (U) [Mass/Vol] 3.2 mg/dL See Note: [facility] [facility] Comment on above: Reference Range: Reference Range Not established Albumin/Creatinine (U) [Mass ratio] 20 NINF [facility] Comment on above: The ADA defines abnormalities in albumin excretion as follows: Albuminuria Category Result (mg/g creatinine) Normal to Mildly increased <30 Moderately increased 30-299 Severely increased > OR = 300 The ADA recommends that at least two of three specimens collected within a 3-6 month period be abnormal before considering a patient to be within a diagnostic category. Creatinine (U) [Mass/Vol] 157 mg/dL 20 - 275 mg/dL [facility] HbA1c (Bld) [Mass fraction]O rdered By: Zonia Jordan on 11-09-2023 Interpretation and review of laboratory results Abnormal [facility] Laboratory - Hematology and Cell countsOrdered By: Zonia Jordan on 11-09-2023 HbA1c (Bld) [Mass fraction] 8.3 % Abnormal - 5.7 % [facility] Office Visiton 11-09-2023 Follow-up visit [id number] Gasper Gillis ra 1940 F Date Provider Department Center 11/09/2023 [id number] MOORE [facility] Family History Problem Relation Age of Onset Lung cancer Mother Depression Mother High Blood Pressure Father Hyperlipidemia Father High Blood Pressure Mother Hearing loss Father Heart attack Father Heart disease Father Coronary artery disease Father Family Status - Relation Status Age at Mother Father Level of Service:81011 MS OFFICE/OUTPATIENT ESTABLISHED MOD MDM 30 MIN Reason for Visit and Comments: Medication Check [[id number]] Hypertension [275411] Hyperlipidemia [182] Anxiety [9] Normal [facility] Progress Noteon 11-09-2023 Progress Note Patient Cj Harkins ith 83 y.o. female, presents today with Chief Complaint Patient presents with Medication Check Hypertension Hyperlipidemia Anxiety . HPI- Cj Gillis presents today for follow up on her diabetes and other chronic health conditions. Previous hemoglobin A1c was 7.6% on 01/29/23. Diabetes Mellitus Type II: Known diabetic complications: peripheral neuropathy and cardiovascular disease Cardiovascular risk factors: advanced age (older than 55 for men, 65 for women), diabetes mellitus, dyslipidemia, and hypertension Current diabetic medications include Metformin, Januvia . Eye exam current (within one year): unknown Dental exam current (within one year): unknown Weight trend: stable Current diet: in general, an unhealthy diet Current exercise: active throughout the day Current monitoring regimen: home blood tests - several times weekly Home blood sugar records: 150-250 Any episodes of hypoglycemia? No Is She on LORENE inhibitor or angiotensin II receptor elizabeth? Yes enalapril (Vasotec)- blood pressure is stable today at 102/68 Currently on statin therapy? Yes - Rosuvastatin Last urine microalbumin was 7.2 mg/L on 01/26/21- had an order placed for repeat testing in December 2022 but did not get this done. Will try again today. Last foot exam was 01/29/23. 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 Will have random exacerbations of disorientation and hives and will do a cocktail of Pepcid, Prednisone, Imodium, and a Benadryl and this manages her symptoms. OA/Chronic Pain of Both Feet: Continues to use Tramadol as needed and this works well for her. Will have her sign a new CSA today. Depression: Takes Cymbalta as prescribed. Feels symptoms are stable. Urinary Incontinence: Has followed up with a specialist and was told she does not qualify for any more surgical corrections. Did not want to have a nerve stimulator. Will wear a depends and this helps. Can get recurrent infections with this. Symptoms stable currently. Health Maintenance: Declines a DEXA scan for osteoporosis screening. Declines a COVID-19 vaccination. Declines a shingles vaccination. Declines to be vaccinated for Hep B. Declines a Tdap vaccination. Declines a pneumococcal vaccination. Declines to be vaccinated for RSV. 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 TB (pulmonary tuberculosis) 1958 Past Surgical History: Procedure Laterality Date BLADDER SUSPENSION 1999 BLADDER SUSPENSION 2017 , CHOLECYSTECTOMY KNEE ARTHROPLASTY Bilateral 1999 TOTAL ABDOMINAL HYSTERECTOMY Family History Problem Relation Name Age of Onset Lung cancer Mother Depression Mother High Blood Pressure Father Hyperlipidemia Father High Blood Pressure Mother Hearing loss Father Heart attack Father Heart disease Father Coronary artery disease Father Social History Socioeconomic History Marital status: Spouse name: Not on file Number of children: Not on file Years of education: Not on file Highest education level: Not on file Occupational History Not on file Tobacco Use Smoking status: Never Smokeless tobacco: Never Vaping Use Vaping status: Never Used Substance and Sexual Activity Alcohol use: No Drug use: No Sexual activity: Defer Other Topics Concern Not on file Social History Narrative Not on file Social Determinants of Health Financial Resource Strain: Low Risk (01/29/2023) Overall Financial Resource Strain (CARDIA) Difficulty of Paying Living Expenses: Not hard at all Food Insecurity: No Food Insecurity (01/29/2023) Hunger Vital Sign Worried About Running Out of Food in the Last Year: Never true Ran Out of Food in the Last Year: Never true Transportation Needs: No Transportation Needs (01/29/2023) PRAPARE - Transportation Lack of Transportation (Medical): No Lack of Transportation (Non-Medical): No Physical Activity: Sufficiently Active (01/29/2023) Exercise Vital Sign Days of Exercise per Week: 7 days Minutes of Exercise per Session: 60 min Stress: No Stress Concern Present (01/29/2023) [employer] [place] [employer] - Occupational Stress Questionnaire Feeling of Stress : Only a little Social Connections: Socially Integrated (01/29/2023) Social Connection and Isolation Panel [NHANES] Frequency of Communication with Friends and Family: More than three times a week Frequency of Social Gatherings with Friends and Family: More than three times a week Attends Worship Services: More than 4 times per year Active Member of Clubs or Organizations: Yes Attends Club or Organization Meetings: More than 4 times per year Marital Status: Intimate Partner Violence: (more content not included)... [facility] [id number] 10-22-2023 [id number] Rx sent. OARRS repor t reviewed with no discrepancies. CSA will need signed at upcoming appointment. [facility] [phone] 09/27/22 CSA Tramadol [facility] 3610-22-2023 36 Agree, thank you [facility] 36 S: Patient's spoke with [facility] nurse regarding possible UTI/kind of out of it/urgency possible pain/still has [employer] medicare B: Onset of symptoms/concern yesterday A: thinks she has a uti, states patient has brain fog, fell and broke 2 ribs recently, in past have been able to bring up urine sample, requesting to bring up urine sample to office so he doesn't have to bring her out. States she has had UTI's in the past. Would like to rule out a UTI. If not her urine, states he will likely have to take her to the ED. Patient incontinent, states she seems out of it. States it's difficult to hear her at this time to tell if she is having speech difficulties. States that is not her baseline. Denies: dark, strong smelling urine, fever, back pain, abdominal pain R: Patient's advised patient should be checked out now due to mental status change and should go to ED or Urgent Care. Patient's understands care advice. Will go to [facility] ED. No further needs at this time. Patient instructed to call back with new or worsening symptoms. Reason for Disposition ? Patient sounds very sick or weak to the triager ? Patient sounds very sick or weak to the triager Mental status change, confusion Protocols used: Urinary Xpfkjagn-QILPO-SM, Confusion - Nkutgktc-PJPPO-MB [facility] 3610-17-2023 36 Unfortunately none o f the other diagnoses are appropriate for why she is needing the patch. Please let family know and may just need to pay out of pocket if they still want to use it. Normal [facility] 36 Denied due to indica tion for use not being covered which was listed in chart as closed fracture of multiple ribs on left side. Is there a different indication we can try? The denial states it is only covered for chronic back pain, postherpetic neuralgia, or diabetic neuropathic pain. Normal [facility] 36on 10-16-2023 36 PA requested for lid ocaine patch. Normal [facility] Brain/Head without Contrasto n 10-16-2023 Brain/Head without Contrast [facility] Imaging Services [address] [place], [place] [address] Brain/Head without Contrast MR#: [id number] Acct: [id number] Name: CJ GILLIS Rep #: [id number] : 1940 F 83 From: Augie Blair MD PCP: Dr. Raeann Parsons MD Status: REG ER Study: Brain/Head without Contrast Date of Exam: 09/30 09/23 Exam# [id number] Ordering Dr: Barry Garcia DO [id number] STUDY: CT BRAIN WITHOUT CONTRAST REASON FOR EXAM: Female, 83 years old patient with closed head injury after fall. RADIATION DOSAGE (If Supplied By Facility): CTDIvol = ( 44.99 ) mGy, DLP = ( 863.60 ) mGycm TECHNIQUE: Transaxial CT imaging of the brain was performed without administration of intravenous contrast material. Multiplanar reformations are submitted for interpretation. Individualized dose optimization techniques were used for this CT. COMPARISON: CT of the head dated April 27, 2022. FINDINGS: Normal soft tissue structures. There are bilateral ocular lenticular implants. Normal calvarium. There is moderate cerebral atrophy with widening of the extra-axial spaces and ventricular dilatation. There are areas of decreased attenuation within the white matter tracts of the supratentorial brain, consistent with microvascular disease changes. Normal basal ganglia and thalami. Normal brainstem. There is mild cerebellar atrophy. There is no intracranial hemorrhage. Appears be a small area of encephalomalacia within the left parietal occipital lobe possibly secondary to old infarcts. There is atherosclerotic calcification of the intracranial arteries. Normal visualized paranasal sinuses. CT/Brain/Head without Contrast IMPRESSION: 1. Chronic involutional changes of the brain. 2. No CT evidence of acute intracranial hemorrhage. Electronically Signed: Augie Blair MD at 2:54 EDT , CC: Dr. Raeann Parsons MD; Barry Garcia DO Security Software Engineer: Signed Normal [facility] Emergency Department Summary on 10-16-2023 Emergency Department Summary [facility] Medical Records Department [address] [place] [address] Emergency Department Summary 10/16/23 MR#: [id number] Acct: [id number] Name: CJ GILLIS Rep #: [id number] : 1940 83 From: Barry Garcia DO PCP: Dr. Raeann Parsons MD Status:DEP ER Location: ED HPI History of Present Illness Chief Complaint: Fall Informant: patient and spouse/S.O. Narrative Narrative: Patient is a 83-year-old female with past medical history of hypertension and type 2 diabetes as well as chronic pain who takes Ultram daily. 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 She states that today she fell once around 3 in the afternoon and also once around evening time. She states both times the fall was mechanical in nature and she denies palpitations chest pain lightheadedness or dizziness prior to the event. She denies striking her head any loss consciousness or history of bleeding disorder. She states that this evening she cannot sleep secondary to the pain despite taking her home medication and with concern for underlying trauma from the fall she comes in for evaluation [facility] Medical History (Updated 10/16/23 @ 06:[address] Barry Garcia, DO) Heart murmur Hypercholesteremia Tuberculosis Home Medications ???Medication ???Instructions ???Recorded ???Last Taken ???Type enalapril maleate 5 mg tablet 5 mg PO DAILY 09/19/13 Unknown History metformin 500 mg tablet 500 mg PO TIDCM 09/19/13 Unknown History niacin 500 mg tablet,extended 1,000 mg PO DAILY 09/19/13 Unknown History release 24 hr tramadol 50 mg tablet 50 mg PO Q6H PRN PRN Pain 09/19/13 Unknown History amlodipine 5 mg tablet 5 mg PO DAILY 09/05/16 Unknown History aspirin 325 mg tablet 325 mg PO DAILY@0800 09/05/16 Unknown History sitagliptin phosphate 100 mg 100 mg PO DAILY 09/05/16 Unknown History tablet (Januvia) lidocaine 4 % topical patch 1 patch topical BID PRN pain #30 ea 10/16/23 Unknown Rx (Lidocaine Pain Relief) ondansetron 4 mg disintegrating 4 mg PO TID PRN nausea and 10/16/23 Unknown Rx tablet vomiting #21 tabs oxycodone-acetaminophen 5 mg-325 1 tab PO Q6H PRN pain 3 days #12 10/16/23 Unknown Rx mg tablet (Percocet) tabs Allergy/AdvReac Type Severity Reaction Status Date / Time celecoxib (From Celebrex) AdvReac Nausea Verified 10/16/23 01:07 Opioids - Morphine Analogues AdvReac Nausea Verified 10/16/23 01:07 rofecoxib (From Vioxx) AdvReac Nausea Verified 10/16/23 01:07 Xlclxfq-TSS-YqP Reductase AdvReac Pain in Verified 10/16/23 01:07 Inhibitor (Vqihnbm-Pwr-Lgd joints Reductase Inhibitor) Surgical History (Updated 10/16/23 @ 01:10 by Lulú Horta) History of cholecystectomy History of appendectomy Social History Smoking Status: Never smoker ROS ROS ED Constitutional Constitutional ED: Denies chills or fever(s) Eyes Eyes: Denies change in vision ENT ENT ED: Denies sore throat Cardiovascular Cardiovascular: Denies chest pain, palpitations or racing heartbeat Respiratory/Chest Respiratory/Chest: Denies cough or dyspnea Gastrointestinal Gastrointestinal: Denies abdominal pain, diarrhea, nausea or vomiting Genitourinary Genitourinary ED: Denies dysuria Musculoskeletal Musculoskeletal: Reports back pain and other Details: Positive left shoulder left elbow left wrist pain as well as left chest wall pain ; Denies neck pain Integumentary Denies Abrasions or rash Neurologic Neurologic: Denies headache(s), paresthesias or weakness Hematologic/Lymphatic Hematologic/Lymphatic: Denies easy bleeding or easy bruising EXAM Physical Exam Const Vital Signs: 10/16/23 01:00 10/16/23 01:11 10/16/23 03:00 Temperature 98.1 F Temperature Source Oral Pulse Rate 81 98 Respiratory Rate 18 18 Respiratory Effort Normal Blood Pressure 181/73 H 145/79 H Blood Pressure Mean 109 101 Pulse Ox 99 98 Oxygen Delivery Method Room Air Room Air 10/16/23 04:00 Temperature 97.6 F L Temperature Source Pulse Rate 98 Respiratory Rate 18 Respiratory Effort Blood Pressure 130/65 H Blood Pressure Mean 86 Pulse Ox 98 Oxygen Delivery Method Positive well nourished and well developed General Appearance ED: well developed; Negative for pallor HEENT HEENT Narrative: Normocephalic atraumatic No signs of depressed or basilar skull fracture Eyes PERRL and EOMs intact bilaterally Neck supple Neck Narrative: No bony deformity or step-off of the cervical spine Chest Wall Chest Narrative: There is reproducible left anterior lateral chest wall pain on palpation rib regions 6-10 without bony deformity or crepitance Resp normal respiratory effort and clear to (more content not included)... Normal [facility] Forearm 2 Viewson 10-16-2023 Forearm 2 Views [facility] Imaging Services [address] [place], [place] [id number] Forearm 2 Views MR#: [id number] Acct: [id number] Name: CJ GILLIS Rep #: [id number] : 1940 F 83 From: Augie Blair MD PCP: Dr. Raeann Parsons MD Status: REG ER Study: Forearm 2 Views Date of Exam: 10/16/23 Exam# [id number] Ordering Dr: Barry Garcia DO [id number] STUDY: X-RAY - LEFT RADIUS AND ULNA REASON FOR EXAM: Female, 83 years old patient with forearm pain. TECHNIQUE: AP and lateral view(s) of the forearm. COMPARISON: None. FINDINGS: There is no demonstrated soft tissue swelling. There is diffuse demineralization of the osseous structures. Normal visualized radius. Normal visualized ulna. There is no demonstrated acute fracture. There is arthrosis of the visualized elbow articulations. RAD/Forearm 2 Views IMPRESSION: No definite evidence for acute fracture or dislocation. Electronically Signed: Augie Blair MD at 3:07 EDT Reading Location ID and State: [address] [place] [address] , Service support , CC: Dr. Raeann Parsons MD; Barry Garcia DO Security Software Engineer: Signed Normal [facility] Humerus min 2 Viewson 2023 Humerus min 2 Views [facility] Imaging Services [address] [place] [address] Humerus min 2 Views MR#: [id number] Acct: [id number] Name: CJ GILLIS Rep #: [id number] : 1940 F 83 From: Augie Blair MD PCP: Dr. Raeann Parsons MD Status: REG ER Study: Humerus min 2 Views Date of Exam: 10/16/23 Exam# [id number] Ordering Dr: Barry Garcia DO [id number] STUDY: X-RAY - LEFT HUMERUS REASON FOR EXAM: Female, 83 years old patient with left-sided arm pain. TECHNIQUE: 2 view(s) of the humerus. COMPARISON: None. FINDINGS: There is diffuse demineralization of the humerus. There is no demonstrated fracture or osseous destructive process. There is no demonstrated soft tissue abnormality. RAD/Humerus min 2 Views IMPRESSION: No obvious acute fracture or dislocation. Electronically Signed: Augie Blair MD at 2:49 EDT Reading Location ID and State: [facility] / [place] , Service support , CC: Dr. Raeann Parsons MD; Barry Garcia DO Security Software Engineer: Signed Normal [facility] Pelvis 1 or 2 Viewson 2023 Pelvis 1 or 2 Views [facility] Imaging Services [address] [place] [address] Pelvis 1 or 2 Views MR#: [id number] Acct: [id number] Name: CJ GILLIS Rep #: [id number] : 1940 F 83 From: Augie Blair MD PCP: Dr. Raeann Parsons MD Status: REG ER Study: Pelvis 1 or 2 Views Date of Exam: 10/16/23 Exam# [id number] Ordering Dr: Barry Garcia DO [id number] STUDY: X-RAY - PELVIS REASON FOR EXAM: Female, 83 years old patient with pelvic injury after fall. TECHNIQUE: One view of the pelvis was obtained. COMPARISON: None. FINDINGS: There is a non-specific bowel gas pattern. Normal visualized soft tissue structures. The sacrum and iliac wings are obscured by bowel gas and/or stool. Normal visualized bilateral superior and inferior pubic rami. Normal pubic symphysis. Normal ischial tuberosities. Normal visualized right femoral head. Normal right acetabulum. Normal right hip joint. Normal visualized left femoral head. Normal left acetabulum. Normal left hip joint. RAD/Pelvis 1 or 2 Views IMPRESSION: No obvious acute displaced fracture or dislocation. Electronically Signed: Augie Blair MD at 2:47 EDT , CC: Dr. Raeann Parsons MD; Barry Garcia DO Security Software Engineer: Signed Normal [facility] Ribs Uni Min 3V w/PA Cheston 10-16-2023 Ribs Uni Min 3V w/PA Chest [facility] Imaging Services [address] [place], [place] [address] Ribs Uni Min 3V w/PA Chest MR#: [id number] Acct: [id number] Name: CJ GILLIS Rep #: [id number] : 1940 F 83 From: Augie Blair MD PCP: Dr. Raeann Parsons MD Status: REG ER Study: Ribs Uni Min 3V w/PA Chest Date of Exam: 10/15 Exam# [id number] Ordering Dr: Barry Garcia DO [id number] STUDY: X-RAY - UNILATERAL RIBS ( LEFT ) WITH CHEST REASON FOR EXAM: Female, 83 years old patient with chest pain. TECHNIQUE - RIBS: 4 view(s) of the ribs. TECHNIQUE - CHEST: Single PA view of the chest. COMPARISON: Radiographs of the chest and ribs dated April 27, 2022. FINDINGS - RIBS: There is demineralization of the osseous structures which diminishes the diagnostic sensitivity of this examination. There appear to be acute displaced fractures of the lateral left seventh and eighth ribs. FINDINGS - CHEST: There are prominent bronchovascular markings in both lungs. The lungs are expanded. There is no demonstrated pleural abnormality. Normal size heart. Normal mediastinum and edwin. Normal visualized pulmonary arteries. There is atherosclerotic calcification of the aortic arch with tortuosity. There is demineralization of the osseous structures. There are postoperative changes in the right shoulder. There is no demonstrated abnormality of the visualized soft tissue structures of the upper abdomen. RAD/Ribs Uni Min 3V w/PA Chest IMPRESSION: RIBS: Osteopenia with acute displaced rib fractures, as described. CHEST: No radiographic evidence of acute cardiopulmonary disease. Electronically Signed: Augie Blair MD at 3:12 EDT Reading Location ID and State: [facility] / [place] , Service support , CC: Dr. Raeann Parsons MD; Barry Garcia DO Security Software Engineer: Signed Normal [facility] Spine Cervical without Contr ason 10-16-2023 Spine Cervical without Contras [facility] Imaging Services [address] [place] [address] Spine Cervical without Contras MR#: [id number] Acct: [id number] Name: CJ GILLIS Rep #: [id number] : 1940 F 83 From: Augie Blair MD PCP: Dr. Raeann Parsons MD Status: REG ER Study: Spine Cervical without Contras Date of Exam: 0 10/16/23 Exam# [id number] Ordering Dr: Barry Garcia DO [id number] STUDY: CT CERVICAL SPINE WITHOUT CONTRAST REASON FOR EXAM: Female, 83 years old patient with neck injury after fall. RADIATION DOSAGE (If Supplied By Facility): CTDIvol = ( 12.46 ) mGy, DLP = ( 265.31 ) mGycm TECHNIQUE: High resolution transaxial imaging was performed without contrast material. Sagittal and coronal images were reconstructed. Individualized dose optimization techniques were used for this CT. COMPARISON: CT of cervical spine dated April 27, 2022. FINDINGS: Normal craniovertebral junction. There are degenerative changes of the anterior atlantoaxial articulation. Normal odontoid process. Normal cervical lordosis. The cervical and upper thoracic vertebral bodies have normal height and alignment. C2-3: Normal endplates. Normal disc height and morphology. Normal central canal. There is mild narrowing of the left intervertebral neuroforamen. There is moderately severe degenerative arthropathy of the left-sided facet joint C3-4: There is narrowing of the disk space. There is mild disk bulge and osteophyte complex. There is mild degenerative arthropathy of the facet joints. Bilateral neuroforamina are moderately narrowed. There is uncovertebral and facet joint hypertrophy. There is no appreciable acquired central canal stenosis. C4-5: There is narrowing of the disk space. There is mild disk bulge and osteophyte complex. There is mild degenerative arthropathy of the facet joints. Bilateral neuroforamina are severely narrowed with uncovertebral and facet joint hypertrophy. There is no appreciable acquired central canal stenosis. C5-6: There is narrowing of the disk space. There is mild disk bulge and osteophyte complex. There is degenerative arthropathy of the uncovertebral joints. Bilateral neuroforamina are moderately narrowed. There is no appreciable acquired central canal stenosis. C6-7: There is narrowing of the disk space. There is mild disk bulge and osteophyte complex. There is degenerative arthropathy of the uncovertebral joints. Bilateral neuroforamina are moderately narrowed. There is no appreciable acquired central canal stenosis. C7-T1: Normal endplates. Normal disc height and morphology. Normal central canal and intervertebral neuroforamina. The thyroid appears atrophic. There is atherosclerotic calcification of the carotid bulbs. Lung apices appear to be clear. CT/Spine Cervical without Contras IMPRESSION: 1. No CT evidence of acute compression or displaced fracture. 2. Moderately severe multilevel degenerative changes of cervical spine as described. Electronically Signed: Augie Blair MD at 3:06 EDT , CC: Dr. Raeann Parsons MD; Barry Garcia DO Security Software Engineer: Signed Normal [facility] Thoracic Spine 3 Viewson Thoracic Spine 3 Views [facility] Imaging Services [address] [place] [address] Thoracic Spine 3 Views MR#: [id number] Acct: [id number] Name: CJ GILLIS Rep #: [id number] : 1940 F 83 From: Augie Blair MD PCP: Dr. Raeann Parsons MD Status: REG ER Study: Thoracic Spine 3 Views Date of Exam: 10/16/23 Exam# [id number] Ordering Dr: Barry Garcia DO [id number] STUDY: X-RAY - THORACIC SPINE REASON FOR EXAM: Female, 83 years old patient with back pain. TECHNIQUE: 3 view(s) of the thoracic spine were obtained. COMPARISON: Prior comparison studies are not available for review at this time. FINDINGS: There is an increase in the normal thoracic kyphosis. There is no substantial scoliosis. There is demineralization of the thoracic spine with endplate spondylosis. There is multilevel disc space narrowing of the thoracic spine. There is extensive atherosclerotic calcification of the thoracic and abdominal aorta. RAD/Thoracic Spine 3 Views IMPRESSION: 1. No definite evidence for acute compression fracture. 2. Multilevel degenerative changes, as described. Electronically Signed: Augie Blair MD at 3:14 EDT , CC: Dr. Raeann Parsons MD; Barry Garcia DO Security Software Engineer: Signed [facility] 36on 10-12-2023 36 Prescription Request : Last medication check: none Last physical exam: 01/29/23 Next scheduled appointment: 11/09/23 Last date of refill on this medication 04/18/23 [facility] [id number] 09-20-2023 [id number] Prescription Request : Last medication check: 03/16/23 Last physical exam: 01/29/23 Next scheduled appointment: 11/09/23 CSA on file (date): 09/27/22 Last urine drug screen: none Last date of refill on this medication Tramadol 08/22/23 Duloxetine 01/29/23 [facility] 36on 09-20-2023 36 Rx sent, OARRS repor t done, no inconsistencies, she does need to sign a new CS agreement before next refill [facility] Office Visiton 07-26-2023 Follow-up visit [id number] Gasper Gillis ra 1940 F Date Provider Department Center 07/26/2023 AUGIE MAHAN [facility] CS None Family History Problem Relation Age of Onset Lung cancer Mother Depression Mother High Blood Pressure Father Hyperlipidemia Father High Blood Pressure Mother Hearing loss Father Heart attack Father Heart disease Father Coronary artery disease Father Family Status - Relation Status Age at Mother Father Level of Service:73220 MS OFFICE/OUTPATIENT NEW HIGH MDM 60 MINUTES Reason for Visit and Comments: Dementia [30] [facility] PATINSon 07-26-2023 PATINS --Memory testing sco res have declined since last visit --Recommend continuing to stay physically, socially and mentally active --Follow up regularly with family doctor to optimize blood pressure, cholesterol, blood sugar. --Follow up with our office in one year or sooner if needed [facility] Progress Noteon 07-26-2023 Progress Note [facility]/Stefany hines Social History Present at visit: patient, daughter Guerita Marital status: Children: 3 children (all local) Living arrangement: with spouse, own home Household safety problems: some falls, no injury Concerning Behaviors: Hallucinations Paranoid thoughts, frequent agitation Wandering potential: no, has 24 hour supervision, has cameras Pets: Yes, has many barn cats Guns in the home: None Elder abuse: No/Denied Concerns Alcohol/Tobacco/Marijuana/D rug Use History: none service: Spouse was a [place] (not during wartime) Highest level of education: HS 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: digs in gardens, plays with cats, sleeps more Exercise: active Finances: adequate savings, has elder care state's attorney My Chart: Only daughter uses Healthcare Power of Scrap Hooker: No Financial Power of Scrap [place]er: No Living Will: No Guardian: No Code Status: Full Code Primary Caregiver: , daughter Guerita Current care plan/supervision: daughter sees patient several times per day, other siblings help some Community resources: Yes: has cameras on outside doors, life alert- refuses to wear Caregiver stressors: daughter denies too much stress Goals for care: resources As a Caregiver, What Matters Most to You: Increase understanding of community resources >>07/26/23 Patient came with daughter. Patient fixated on not being able to drive anymore and talked repeatedly about that during visit. Daughter would like more information on resources, especially when she is out of town on vacation. JULIÁN gave her information about Caregiver Relief program through [employer], home health agencies, adult day programs that could provide some respite. JULIÁN also encouraged daughter to meet with elder care state's attorney to discuss future planning. Resources given today: Caregiver Relief program, home health agency list, Adult Day Program list, Elder Care [place] list Functional Status (I: Independent, A: Assisted, D: Dependent) ADLs I A D Notes Bathing [] [x] [] Needs cuing to shower Dressing [] [x] [] Wears same clothes, needs cued to change Toileting [x] [] [] Incontinent, manages herself Transfers [x] [] [] No issues Feeding [x] [] [] No issues Ambulation [x] [] [] none Assistive devices: Grab bars and Shower chair IADLs I A D Telephone [] [x] [] Can call a few family members, daughter sets up appointments, needs constant reminders Transportation [] [] [x] Driving safety concerns: Not currently driving Shopping [] [] [x] Spouse or daughter shops Meal prep [] [] [x] Spouse or daughter cooks, neighbors bring food, will forget to eat, eats sweets Housework [] [] [x] Daughter cleans Medications [] [] [x] Daughter sets up pill box, spouse administers Finances [] [] [x] Spouse pays bills Normal [facility] Progress Note Review of Systems Constitutional: Positive for appetite change, fatigue and unexpected weight change. Negative for fever. HENT: Positive for hearing loss. Negative for dental problem and trouble swallowing. Eyes: Negative for visual disturbance. Respiratory: Negative for cough and shortness of breath. Cardiovascular: Negative for leg swelling. Gastrointestinal: Positive for diarrhea. Negative for constipation. Genitourinary: Positive for dysuria. Negative for difficulty urinating. Musculoskeletal: Positive for arthralgias. Negative for back pain and gait problem. Neurological: Negative for tremors, speech difficulty and weakness. Psychiatric/Behavioral: Positive for agitation, confusion, dysphoric mood and hallucinations. Negative for sleep disturbance. The patient is nervous/anxious. Normal [facility] Progress Note [facility] [address] [facility] [address] Dept: [phone] Dept Loc: [phone] Visit type: [facility] Initial Assessment Visit Date: 07/26/2023 Reason for Visit: Dementia Assessment and Plan 1. Mixed Alzheimer's and vascular dementia (HCC) - [facility] - MMSE today with a score of 13/30 (roughly equal to about a 6-7 on MoCA which is down from last visit 05/2020 with a MoCA score of 14/30) - Function: ADLs- cuing for bathing and changing of clothes, IADLs- dependent in IADLs - Patient is having reported panic type events that family has been managing with a mix of medications including prednisone and benadryl- dtr aware that both medications may worsen cognition, however, this has been working for them so OK for them to cautiously continue this - Discussed that should these events worsen in the future could discuss other medications for mood stabilization - Patient has good family support, no reported home safety issues at this time- dtr monitoring with outdoor cameras. - Family goal is to keep patient at home for as long as possible- fur floor worker discussed possible options for increased supports/respite, including: Caregiver Relief program, home health agency list, Adult Day Program list - Recommend continuing to stay physically, socially and mentally active - Patient's blood pressure is on the softer side today at visit, given her increased fall risk she may benefit from dose reduction of her antihypertensive regimen- Follow up regularly with family doctor to optimize blood pressure, cholesterol, blood sugar. - Dtr would like to follow up in 1 year, encouraged to call our office with any concerns or questions in the meantime. Follow up in about 1 year (around 07/25/2024). Subjective HPI: Cj Gillis is a 83 y.o. female who presents to the [facility] for a comprehensive geriatric assessment. The patient is new to me. PMH includes: mixed urinary incontience, chronic pain of feet, osteoarthritis, MDD, T2DM, essential hypertension, mixed hyperlipidemia Referred by PCP for Mixed Alzheimer's and vascular dementia (HCC) Has been previously evaluated at our clinic- last seen 06/14/20: seen by Dr. Jackson for FSC At this visit diagnosis of Mixed Alzheimer's and vascular dementia reviewed, opted not to start donepezil . Cognitive testing performed on initial visit -05/31/20- reviewed- Total score was 14 out of 30. 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- granddtr does meal prep She can't cook anymore- thinks she is taking care of the barn animals Will say that she is overwhelmed They love to eat junk food Dtr can normally get her to do whatever Falling- occasionally, scoots and will get get feet low to get - thinks the cane confuses her worse Bad about not wanting to wear glasses Goal is to keep her home as long as possible When not in her own home is an elopement risk- ring camera Sleep - she will sleep well at night- has to be in her bed with her routine Feels like they are still safe at home Goal for visit today: Wants to see where she as History obtained from patient: Upset about getting a diagnosis at the last visit, said she was still working then Fixed on losing her drivers license- brings this up multiple times during the visit States that things are going pretty well- reports that they have animals and land Feels that she is overactive for her age Reports that she is in her 70s Feels like she does cry sometimes- doesn't take as much to make her cry- unable to describe why Noted to be repetitive in conversation Reviewed progress notes completed by SCHUYLER (BELINDA)and social work. Allergies Allergen Reactions Hydrocodone-Acetaminophen Celecoxib PALPITATIONS Morphine Other Rofecoxib PALPITATIO;NS Statins Other Other reaction(s): Other: See Comments Suspects lipitor decreases her hearing loss and tinnitus and liver spots. Current Outpatient Medications Medication Sig Dispense Refill acetaminophen (Tylenol) 500 MG tablet Take 500 mg by mouth in the morning and 500 mg before bedtime. aspirin 325 MG tablet Take 325 mg by mouth in the morning. Cholecalciferol (Vitamin D3) 125 MCG (5000 UT) tablet dispersible Take 125 mcg by mouth daily. DULoxetine HCl 30 MG Capsule Delayed Release Sprinkle Take 60 mg by mouth mateusz (more content not included)... [address] 07-17-2023 Reviewed chart. Refi ll appropriate. Rx sent. [place] [id number] Prescription Request : Last medication check: 03/16/23 Last physical exam: 01/29/23 Next scheduled appointment: 08/03/23 Last date of refill on this medication 01/18/[address] 07-11-2023 36 Rx sent. Follow up a s scheduled. [place] [address] Prescription Request : Last medication check: none Last physical exam: 01/29/23 Next scheduled appointment: 08/03/23 Last date of refill on this medication 01/12/23 90 day 1 refill (documented that pt is taking 5mg every day) [address] 07-06-2023 36 Scheduled 07/26/23. [address] 07-05-2023 36 Name of Caller: Taniya brice Contact Reason for Appointment: Returning call to schedule appointment. Please advise. Office Name: [facility] Medication Refills need, if any: NA Medication Name: NA [facility] 36 Prescription Request : Last medication check: none Last physical exam: 01/29/23 Next scheduled appointment: 08/03/23 Last date of refill on this medication 07/10/22 90 day [address] 06-22-2023 36 Attempted to contact Guerita with no answer. LM to return my call. Will send [employer] message as well. [facility] [id number] 06-21-2023 [id number] Prescription Request : Last medication check: 03/16/23 Last physical exam: 01/29/23 Next scheduled appointment: 08/03/23 Last date of refill on this medication 05/28/23 CSA 09/27/[address] 06-21-2023 36 Rx sent, OARRS repor t done, no inconsistencies, CS agreement in place but this will not be able to be picked up until the . [facility] Urinalysis macro (dipstick) panel (U)Ordered By: Zonia Jordan on 06-20-2023 Bilirubin, UA Negative [facility] Blood, UA Negative [facility] Glucose, UA Negative [facility] Ketones, POC (mg/dL) Negative [facility] Leukocytes, UA Trace [facility] Nitrite, UA Negative [facility] pH, UA 5.0 [facility] Protein, UA Negative [facility] Spec Grav, UA 1.030 [facility], UA 0.[address] [facility] Radiology Study observation (narrative) [facility] [id number] 05-28-2023 [id number] Rx sent. OARRS repor t reviewed with no discrepancies. CSA signed in August 2022. [facility] [id number] 05-27-2023 [id number] Prescription Request : Last medication check: 03/16/23 Last physical exam: 01/29/23 Next scheduled appointment: 08/03/23 Last date of refill on this medication 04/27/23 CSA 09/27/[address] 05-17-2023 36 Refused, this was se nt in 2 days ago [facility] 36 Prescription Request : Last medication check: 03/16/23 Last physical exam: 01/29/23 Next scheduled appointment: 08/03/23 Last date of refill on this medication 05/15/23 PHARMACY REQUESTING 90 DAY SUPPLY [facility] 36on 05-16-2023 36 Please advise, do yo u want an in office UA and culture? [facility] 36on 05-08-2023 36 Called and spoke to Daylin, she states she didn't receive the info, I verified the fax number and sent via [employer]. Asked her to call me tomorrow if she doesn't receive this. [place] [address] Faby's information w as faxed in March 21, we had to refax 1 page with the signature on May 01 that stuff should all be there. [place] [address] Name of caller: Daniel ojeda Contact phone number: [phone] Relationship to Patient: Spouse Provider: Dr. Herron Practice: [facility] Chief Complaint/Reason for Call: The patient is calling for an update on the patient order for diabetic shoes. Sukumar states he requested an order at 3 months ago. The patient wants the order to go to [facility] in [place]. Also, the patient states Daylin needs documentation from the office. Please call Daylin to advise. Note: [facility] in [place] Daylin Phone; [phone] ext home and health Fax; [phone] Best time of day caller can be reached: anytime [place] [address]on 04-30-2023 36 Signed [place] [address] Printed and put on y our desk to sign. [place] [address] Name of caller: Shoshana faye Contact phone number: [phone] Ext. 3 Relationship to Patient: [facility] Provider: Dr. Herrno Practice: [facility] Chief Complaint/Reason for Call: Caller stated that she needs a print out of first page of office notes from 01.29.2023, Dr. Herron needs to date and sign first page and fax. Please fax to: [phone]. Please advise. Thank you Best time of day caller can be reached: any Patient advised that office/PCP has 24-48 business hours to return their call: Yes [address] 04-18-2023 36 Rx sent. Follow up a s scheduled. [place] [address] Prescription Request : Last medication check: 03/16/23 Last physical exam: 01/29/23 Next scheduled appointment: 08/03/23 Last date of refill on this medication 10/23/22 90 day [address] 03-27-2023 36 Reviewed chart. Refi ll appropriate. RX sent. [facility] 36 Prescription Request : Last medication check: 03/16/23 Last physical exam: 01/29/23 Next scheduled appointment: 08/03/23 CSA on file (date): 09/27/22 Last urine drug screen: none Last date of refill on this medication 01/19/23 90 tablets no refill [address] 03-21-2023 36 Addressed. [facility] 36 Name of caller: Shoshana faye Contact phone number: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 collections identified. There is mild intrahepatic and extrahepatic biliary dilatation with the common duct measuring up to 1 cm in diameter. The gallbladder is normal in appearance. Spleen: Not enlarged. Calcified granulomas noted. Pancreas: No significant abnormality. Adrenal glands: No significant abnormality. Kidneys: No hydronephrosis or renal calculi are seen. An 8 mm hypodensity in the left mid kidney is too small to accurately characterize but likely a cyst. Bowel: There is diffuse circumferential wall thickening and mucosal hyperenhancement within the rectum and distal sigmoid colon. Colonic diverticulosis is seen with no evidence of acute diverticulitis. The appendix is not well visualized however there are no inflammatory changes within the right lower quadrant. Mesentery/Intraperitoneum: No intraperitoneal free fluid or air is seen. Mesentery is normal in appearance. Lymph nodes: No lymphadenopathy Computed Tomography Report Vasculature: Extensive atherosclerotic calcification of the aortoiliac vessels with no aneurysmal dilatation seen. Pelvic organs: No masses or other significant abnormalities seen. Soft tissues and Osseous structures: No evidence of fracture. No suspicious osseous lesions. Moderate multilevel degenerative changes of the lumbar spine with grade 1 retrolisthesis of L3 on L4 and anterolisthesis of L4 on L5. Small fat and fluid containing left inguinal hernia. IMPRESSION: 1. Exam suggestive of proctocolitis. 2. Mild intrahepatic and extrahepatic biliary dilatation. Correlate with LFTs for evidence of obstruction. MRI/MRCP may be helpful for further evaluation. 3. Colonic diverticulosis with no evidence of acute diverticulitis. 4. Small fat and fluid containing left inguinal hernia. Report Dictated on --- Final --- Dictating Physician: MD YEUNG JAMES Signed Date and Time: 10/21/2020 3:17 pm Signed by: MD YEUNG JAMES Transcribed Date and Time: 10/21/2020 3:18 [facility] Work Phone: [facility] Work Phone: CT Abdomen/Pelvis w/ Contras ton 10-21-2020 CT Abdomen/Pelvis w/ Contrast [id number] ACCESSION EXAM DATE/TIME PROCEDURE ORDERING PROVIDER [id number] 10/21/2020 14:[address] Abdomen/Pelvis w/ IV MD DIONNA, NANI Ortiz Contrast (IV Onl CPT code 19221 Q9967 Reason For Exam (CT Abdomen/Pelvis w/ IV Contrast (IV Onl) diarrhea, wbc 17 Report CLINICAL HISTORY: diarrhea, wbc 17 COMPARISON: None Technique: Axial CT images were obtained of the abdomen and pelvis after the uneventful IV administration of 75 mL of Isovue 370 IV contrast. Images were reformatted in coronal and sagittal projections. Oral contrast: Not given FINDINGS: Lung bases: The lung bases are clear. Liver/Biliary system: No focal masses or fluid collections identified. There is mild intrahepatic and extrahepatic biliary dilatation with the common duct measuring up to 1 cm in diameter. The gallbladder is normal in appearance. Spleen: Not enlarged. Calcified granulomas noted. Pancreas: No significant abnormality. Adrenal glands: No significant abnormality. Kidneys: No hydronephrosis or renal calculi are seen. An 8 mm hypodensity in the left mid kidney is too small to accurately characterize but likely a cyst. Bowel: There is diffuse circumferential wall thickening and mucosal hyperenhancement within the rectum and distal sigmoid colon. Colonic diverticulosis is seen with no evidence of acute diverticulitis. The appendix is not well visualized however there are no inflammatory changes within the right lower quadrant. Mesentery/Intraperitoneum: No intraperitoneal free fluid or air is seen. Mesentery is normal in appearance. Lymph nodes: No lymphadenopathy Computed Tomography Report Vasculature: Extensive atherosclerotic calcification of the aortoiliac vessels with no aneurysmal dilatation seen. Pelvic organs: No masses or other significant abnormalities seen. Soft tissues and Osseous structures: No evidence of fracture. No suspicious osseous lesions. Moderate multilevel degenerative changes of the lumbar spine with grade 1 retrolisthesis of L3 on L4 and anterolisthesis of L4 on L5. Small fat and fluid containing left inguinal hernia. IMPRESSION: 1. Exam suggestive of proctocolitis. 2. Mild intrahepatic and extrahepatic biliary dilatation. Correlate with LFTs for evidence of obstruction. MRI/MRCP may be helpful for further evaluation. 3. Colonic diverticulosis with no evidence of acute diverticulitis. 4. Small fat and fluid containing left inguinal hernia. Report Dictated on Final Dictating Physician: MD YEUNG JAMES Signed Date and Time: 10/21/2020 3:17 pm Signed by: MD YEUNG JAMES Transcribed Date and Time: 10/21/2020 3:18 Normal [facility] Comp Metabolic Panelon 10-21 Calcium [Mass/Vol] 9.6 mg/dL Normal 8.4-10.4 [facility] Comment on above: Performed By: #### Fabrizio TONY CMP3, HEMDF #### [facility] [address] [place] [address] ALP [Catalytic activity/Vol] 73 U/L Normal 38-126 [facility] Comment on above: Performed By: #### Fabrizio TONY CMP3, HEMDF #### [facility] [address] [place] [address] ALT [Catalytic activity/Vol] 12 U/L Normal 0-34 [facility] Comment on above: Result Comment: The ALT test is performed by an updated assay method. Please note that the reference intervals have been changed and are now sex specific. Performed By: #### T CECILY CMP3, HEMDF #### [facility] [address] [place] [address] Anion gap [Moles/Vol] 6 mmol/L Normal 3-13 [facility] Comment on above: Performed By: #### T CECILY CMP3, HEMDF #### [facility] [address] [place] [address] AST [Catalytic activity/Vol] 30 U/L Normal 15-46 [facility] Comment on above: Performed By: #### T CECILY CMP3, HEMDF #### [facility] [address] [place] [address] Bilirubin [Mass/Vol] 0.4 mg/dL Normal 0.2-1.3 [facility] Comment on above: Performed By: #### Fabrizio TONY CMP3, HEMDF #### [facility] [address] [place] [address] CO2 [Moles/Vol] 25 mmol/L Normal 22-30 [facility] Comment on above: Performed By: #### Fabrizio TONY CMP3, HEMDF #### [facility] [address] [place] [address] Glucose [Mass/Vol] 225 mg/dL High 70-100 [facility] Comment on above: Performed By: #### Fabrizio TONY CMP3, HEMDF #### [place] [address] [place] [address] Protein [Mass/Vol] 7.4 g/dL Normal 6.3-8.2 [facility] Comment on above: Performed By: #### Fabrizio TONY CMP3, HEMDF #### [place] [address] [place] [address] Urea nitrogen [Mass/Vol] 29 mg/dL High 7-20 [facility] Comment on above: Performed By: #### Fabrizio TONY CMP3, HEMDF #### [facility] [address] [place] [address] Creatinine [Mass/Vol] 0.81 mg/dL Normal 0.52-1.25 [facility] Comment on above: Performed By: #### Fabrizio TONY CMP3, HEMDF #### [facility] [address] [place] [address] GFR/1.73 sq M.predicted among blacks MDRD (S/P/Bld) [Vol rate/Area] 79.2 mL/min/{1.73_m2} Normal >60 [facility] Comment on above: Performed By: #### Fabrizio TONY CMP3, HEMDF #### [facility] [address] [place] [address] GFR/1.73 sq M.predicted among non-blacks MDRD (S/P/Bld) [Vol rate/Area] 68.3 mL/min/{1.73_m2} Normal >60 [facility] Comment on above: Result Comment: KDIG O guidelines provide the following GFR categories: Stage GFR(ml/min/1.73 m2) Terms G1 >=90 Normal or high G2 60-89 Mildly decreased* G3a 45-59 Mildly to moderately decreased G3b 30-44 Moderately to severely decreased G4 15-29 Severely decreased G5 <15 Kidney failure *Relative to young adult level. In the absence of evidence of kidney damage, neither GFR category G1 nor G2 fulfill the criteria for CKD. The CKD-EPI equation is validated in individuals 18 years of age and older. Currently the best equation for estimating glomerular filtration rate (GFR) from serum creatinine in children is the Bedside Monreal equation. It is less accurate in patients with extremes of muscle mass, restriction of dietary protein, ingestion of creatine, extra-renal metabolism of creatinine, or treatment with medications that affect renal tubular creatinine secretion. Performed By: #### Fabrizio TONY CMP3, HEMDF #### [facility] [address] [place] [address] Albumin [Mass/Vol] 4.2 g/dL Normal 3.5-5.0 [facility] Comment on above: Performed By: #### Fabrizio TONY CMP3, HEMDF #### [facility] [address] [place] [address] Chloride [Moles/Vol] 105 mmol/L Normal 98-107 [facility] Comment on above: Performed By: #### Fabrizio TONY CMP3, HEMDF #### [facility] [address] [place] [address] Potassium [Moles/Vol] 3.9 mmol/L Normal 3.5-5.1 [facility] Comment on above: Performed By: #### Fabrizio TONY CMP3, HEMDF #### [facility] [address] [place] [address] Sodium [Moles/Vol] 136 mmol/L Normal 135-145 [facility] Comment on above: Performed By: #### Fabrizio TONY CMP3, HEMDF #### [facility] [address] [place] [address] Comprehensive Metabolic Pane lOrdered By: Astrid Da Silva on 10-21-2020 Albumin [Mass/Vol] 4.2 g/dL 3.5 - 5.0 g/dL [facility] Work Phone: [phone] ALP (Bld) [Catalytic activity/Vol] 73 U/L 38 - 126 U/L [facility] Work Phone: [phone] ALT [Catalytic activity/Vol] 12 U/L 0 - 34 U/L [facility] Work Phone: Comment on above: The ALT test is perf ormed by an updated assay method. Please note that the reference intervals have been changed and are now sex specific. Anion gap [Moles/Vol] 6 mmol/L 3 - 13 mmol/L [facility] Work Phone: [phone] AST [Catalytic activity/Vol] 30 U/L 15 - 46 U/L [facility] Work Phone: [phone] Bilirubin [Mass/Vol] 0.4 mg/dL 0.2 - 1 .3 mg/dL [facility] Work Phone: [phone] Calcium [Mass/Vol] 9.6 mg/dL 8.4 - 10. 4 mg/dL [facility] Work Phone: [phone] Chloride [Moles/Vol] 105 mmol/L 98 - 10 7 mmol/L [facility] Work Phone: [phone] CO2 [Moles/Vol] 25 mmol/L 22 - 30 mmol/L [facility] Work Phone: [phone] Creatinine [Mass/Vol] 0.81 mg/dL 0.52 - 1.25 mg/dL [facility] Work Phone: [phone] EGFR IF NonAfrican [place] 68.3 mL/min >60 [facility] Work Phone: Comment on above: KDIGO guidelines pro vide the following GFR categories: Stage GFR(ml/min/1.73 m2) Terms G1 >=90 Normal or high G2 60-89 Mildly decreased* G3a 45-59 Mildly to moderately decreased G3b 30-44 Moderately to severely decreased G4 15-29 Severely decreased G5 <15 Kidney failure *Relative to young adult level. In the absence of evidence of kidney damage, neither GFR category G1 nor G2 fulfill the criteria for CKD. The CKD-EPI equation is validated in individuals 18 years of age and older. Currently the best equation for estimating glomerular filtration rate (GFR) from serum creatinine in children is the Bedside Monreal equation. It is less accurate in patients with extremes of muscle mass, restriction of dietary protein, ingestion of creatine, extra-renal metabolism of creatinine, or treatment with medications that affect renal tubular creatinine secretion. Free PSA/Total PSA [Mass fraction] 7.4 g/dL 6.3 - 8.2 g/dL [facility] Work Phone: GFR/1.73 sq M.predicted among blacks MDRD (S/P/Bld) [Vol rate/Area] 79.2 mL/min/{1.73_m2} >60 [facility] Work Phone: Glucose [Mass/Vol] 225 mg/dL High 70 - 100 mg/dL [facility] Work Phone: Interpretation and review of laboratory results Abnormal [facility] Work Phone: Potassium [Moles/Vol] 3.9 mmol/L 3.5 - 5.1 mmol/L [facility] Work Phone: Sodium [Moles/Vol] 136 mmol/L 135 - 145 mmol/L [facility] Work Phone: Urea nitrogen (BldV) [Mass/Vol] 29 mg/dL High 7 - 20 mg/dL [facility] Work Phone: Test Performed by [facility], [address] [place] [id number] [facility] Work Phone: [facility] Work Phone: ED Provider Noteon 1 ED Provider Note Emergency Department Encounter [facility] ED Patient: Cj Gillis : 1940 Date of Evaluation: 10/21/2020 ED Supervising Physician: NANI VILLAREAL MD I independently examined and evaluated Cj Gillis. I wore a N95 mask, gloves, and goggles for the entirety of this encounter. In brief, Cj Gillis is a 80 y.o. female that presents to the emergency department for evaluation of diarrhea. Patient also states she has severe hand itching. She states that this may be an allergy to something. Patient denies any abdominal pain. She has nausea but no vomiting. Focused exam: General appearance: Well-appearing, no acute distress. Psych: Awake alert and oriented ?3. Pleasant and cooperative. Skin: Warm and dry. Neck: Supple. Cardiovascular: Regular rate and rhythm, Lungs: Clear to auscultation bilaterally, no accessory muscle use, tachypnea, or retractions. Abdomen: Soft, nontender, and nondistended, no rebound, rigidity, or guarding, positive bowel sounds 4 quadrants. Extremities: Warm and well perfused. NROM and SILT throughout upper and lower extermities. Brief ED course/MDM: Patient evaluated with blood work which showed a elevated white blood cell count so we are obtaining a CT scan of the abdomen pelvis. All diagnostic, treatment, and disposition decisions were made by myself in conjunction with the THOMAS/Resident. I also supervised doll portions of any procedures performed by the THOMAS/Resident. For all further details of the patient's emergency department visit, please see their documentation. (Please note that portions of this note may have been completed with a voice recognition program. Efforts were made to edit the dictations but occasionally words are mis-transcribed.) NANI VILLAREAL MD Acute Care [facility] Nani Villareal MD 10/21/20 1429 [facility] ED Provider Note Emergency Department Encounter Location: [facility] ED Patient: Cj Gillis : 1940 Date of evaluation: 10/21/2020 ED Provider: Ladarius Drake, 3:00p.m. Cj Gillis was checked out to me by Dr. Villareal. Please see his/her initial documentation for details of the patient's initial ED presentation, physical exam and completed studies. In brief, Cj Gillis is a 80 y.o. female that presented to the emergency department with generalized abdominal pain. Patient found to have elevated white blood cell count and signs of proctosigmoiditis. Patient admitted to [facility] for IV antibiotics. I have reviewed and interpreted all of the currently available lab results and diagnostics from this visit: Results for orders placed or performed during the hospital encounter of 10/21/20 Comprehensive Metabolic Panel Result Value Ref Range Sodium 136 135 - 145 mmol/L Potassium 3.9 3.5 - 5.1 mmol/L Chloride 105 98 - 107 mmol/L CO2 25 22 - 30 mmol/L Anion Gap 6 3 - 13 mmol/L Glucose 225 (H) 70 - 100 mg/dL BUN 29 (H) 7 - 20 mg/dL CREATININE 0.81 0.52 - 1.25 mg/dL eGFR 79.2 >60 mL/min EGFR IF NonAfrican [place] 68.3 >60 mL/min Calcium 9.6 8.4 - 10.4 mg/dL Albumin,Serum 4.2 3.5 - 5.0 g/dL Total Protein 7.4 6.3 - 8.2 g/dL Total Bilirubin 0.4 0.2 - 1.3 mg/dL Alkaline Phosphatase 73 38 - 126 U/L ALT 12 0 - 34 U/L AST 30 15 - 46 U/L Hemogram (CBC) w/Auto Diff Result Value Ref Range WBC 17.3 (H) 3.6 - 10.7 10*3/uL RBC 4.54 3.80 - 5.20 10*6/uL Hemoglobin 13.8 11.7 - 16.0 g/dL Hematocrit 41.2 35.0 - 47.0 % MCV 90.8 79.0 - 98.0 fL MCH 30.3 26.0 - 34.0 pg MCHC 33.4 32.0 - 36.0 % RDW 13.0 11.5 - 14.5 % Platelets 260 140 - 440 10*3/uL MPV 8.4 7.4 - 10.4 fL Granulocytes % 87.7 (H) 40.0 - 80.0 % Lymphocyte % 7.3 (L) 20.0 - 40.0 % Monocytes 4.4 2.0 - 10.0 % Eosinophils 0.3 (L) 1.0 - 6.0 % Basophils 0.3 0.0 - 2.0 % Absolute Neut # 15.2 (H) 1.8 - 7.0 10*3/uL Absolute Lymph # 1.3 1.0 - 4.3 10*3/uL Absolute Emery # 0.8 0.0 - 0.8 10*3/uL Absolute Eos # 0.1 0.0 - 0.5 10*3/uL Absolute Baso # 0.0 0.0 - 0.2 10*3/uL Troponin x1 Result Value Ref Range Troponin I <0.012 0.000 - 0.034 ng/mL CT Abdomen Pelvis W Contrast Result Date: 10/21/2020 Patient Name: CJ GILLIS Computed Tomography ACCESSION EXAM DATE/TIME PROCEDURE ORDERING PROVIDER [id number] 10/21/2020 14:[address] Abdomen/Pelvis w/ IV MD DIONNA, NANI Ortiz Contrast (IV Onl CPT code 37258 Q9967 Reason For Exam (CT Abdomen/Pelvis w/ IV Contrast (IV Onl) diarrhea, wbc 17 Report CLINICAL HISTORY: diarrhea, wbc 17 COMPARISON: None Technique: Axial CT images were obtained of the abdomen and pelvis after the uneventful IV administration of 75 mL of Isovue 370 IV contrast. Images were reformatted in coronal and sagittal projections. Oral contrast: Not given FINDINGS: Lung bases: The lung bases are clear. Liver/Biliary system: No focal masses or fluid collections identified. There is mild intrahepatic and extrahepatic biliary dilatation with the common duct measuring up to 1 cm in diameter. The gallbladder is normal in appearance. Spleen: Not enlarged. Calcified granulomas noted. Pancreas: No significant abnormality. Adrenal glands: No significant abnormality. Kidneys: No hydronephrosis or renal calculi are seen. An 8 mm hypodensity in the left mid kidney is too small to accurately characterize but likely a cyst. Bowel: There is diffuse circumferential wall thickening and mucosal hyperenhancement within the rectum and distal sigmoid colon. Colonic diverticulosis is seen with no evidence of acute diverticulitis. The appendix is not well visualized however there are no inflammatory changes within the right lower quadrant. Mesentery/Intraperitoneum: No intraperitoneal free fluid or air is seen. Mesentery is normal in appearance. Lymph nodes: No lymphadenopathy Computed Tomography Report Vasculature: Extensive atherosclerotic calcification of the aortoiliac vessels with no aneurysmal dilatation seen. Pelvic organs: No masses or other significant abnormalities seen. Soft tissues and Osseous structures: No evidence of fracture. No suspicious osseous lesions. Moderate multilevel degenerative changes of the lumbar spine with grade 1 retrolisthesis of L3 on L4 and anterolisthesis of L4 on L5. Small fat and fluid containing left inguinal hernia. IMPRESSION: 1. Exam suggestive of proctocolitis. 2. Mild intrahepatic and extrahepatic biliary dilatation. Correlate with LFTs for evidence of obstruction. MRI/MRCP may be helpful for further evaluation. 3. Colonic diverticulosis with no evidence of acute diverticulitis. 4. Small fat and fluid containing left inguinal hernia. Report Dictated on --- Final --- Dictating Physician: MD YEUNG JAMES Signed Date and Time: 10/21/2020 3:17 pm Signed by: MD YEUNG JAMES Transcr (more content not included)... Normal [facility] ED [facility] dEPARTMENT eNCOUnter Pt Name: Cj Gillis Birthdate 1940 Date of evaluation: 10/21/2020 Provider: ESTELA HERRMANN CHIEF COMPLAINT Chief Complaint Patient presents with ? Abdominal Pain HISTORY OF PRESENT ILLNESS (Location/Symptom, Timing/Onset,Context/Settin g, Quality, Duration, Modifying Factors, Severity) Note limiting factors. HPI I did don an N95 mask and gloves during all of my interactions with this patient. This patient was seen in conjunction with Dr. Villareal who also interviewed and evaluated the patient at bedside. Cj Gillis is a 80 y.o. 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 Patient was out shoe shopping with her . The patient suddenly developed some generalized abdominal pain and had to have a bowel movement immediately. When the went to look for her he found her in the bathroom very pale and diaphoretic with increased confusion. She did had a bowel movement and she was complaining of generalized abdominal pain. She then developed bilateral hand itching. On arrival to the emergency department the patient had another bowel movement in the triage restroom. She states her abdominal pain is improved but her itching is intense. The actually has a small vessel attached to his keys and belt that has 1 dose of Pepcid, Benadryl, and prednisone and it. He states that the patient has had episodes where she would just start itching from head to toe and then have diarrhea but he has not had to use the medications for a long time. He always carries them with him however. On my exam the patient states she is not having any abdominal pain but feels like she has to have another bowel movement. The patient is also confused. Her states that she has a history of dementia but her confusion is significantly increased since this episode started. Nursing Notes were reviewed. REVIEW OF SYSTEMS (2+ for4; 10+ for level 5) Review of Systems Constitutional: Negative for chills, diaphoresis and fever. HENT: Negative for congestion, ear pain, facial swelling, rhinorrhea and sore throat. Eyes: Negative for photophobia, pain and visual disturbance. Respiratory: Negative for cough, chest tightness, shortness of breath and wheezing. Cardiovascular: Negative for chest pain and leg swelling. Gastrointestinal: Positive for abdominal pain and diarrhea. Negative for constipation, nausea and vomiting. Genitourinary: Negative for difficulty urinating, dysuria, flank pain, frequency, hematuria and urgency. Musculoskeletal: Negative for arthralgias, back pain, myalgias and neck pain. Skin: Negative for rash. Bilateral hands itching. Neurological: Negative for dizziness and headaches. Psychiatric/Behavioral: Negative for suicidal ideas. PAST MEDICAL HISTORY Past Medical History: Diagnosis Date ? Diabetes mellitus (HCC) ? Hyperlipidemia ? Hypertension ? Murmur ? TB (pulmonary tuberculosis) 1958 SURGICALHISTORY Past Surgical History: Procedure Laterality Date ? BLADDER SUSPENSION 2016 05, ? BLADDER SUSPENSION 1999 ? CHOLECYSTECTOMY ? HYSTERECTOMY, TOTAL ABDOMINAL ? KNEE ARTHROPLASTY Bilateral 1999 CURRENT MEDICATIONS Previous Medications ACETAMINOPHEN (TYLENOL) 500 MG TABLET Take 500 mg by mouth 2 times daily ASPIRIN 325 MG TABLET Take 325 mg by mouth daily BETAXOLOL (KERLONE) 10 MG TABLET Take 5 mg by mouth daily DULOXETINE HCL 30 MG CSDR Take 30 mg by mouth daily ELASTIC BANDAGES & SUPPORTS (WRIST SPLINT/COCK-UP/LEFT SM) MISC 1 each by Does not apply route daily ELASTIC BANDAGES & SUPPORTS (WRIST SPLINT/COCK-UP/RIGHT SM) MISC 1 each by Does not apply route daily ENALAPRIL (VASOTEC) 10 MG TABLET Take 1 tablet by mouth daily ESCITALOPRAM (LEXAPRO) 5 MG TABLET Take 1 tablet by mouth daily FAMOTIDINE (PEPCID) 20 MG TABLET TAKE 1 TABLET DAILY INCONTINENCE SUPPLY DISPOSABLE ([facility] INCONTINENCE PADS) MISC 100 each by Does not apply route daily as needed (incontinence) LORATADINE (CLARITIN) 10 MG TABLET TAKE 1 TABLET DAILY METFORMIN (GLUCOPHAGE-XR) 500 MG EXTENDED RELEASE TABLET Take 1 tablet by mouth 2 times daily TWICE DAILY PHENAZOPYRIDINE (PYRIDIUM) 200 MG TABLET 1 tablet 3 times daily after meals for 2 days POTASSIUM 99 MG TABS Take by mouth daily ROSUVASTATIN (CRESTOR) 10 MG TABLET TAKE 1 TABLET DAILY SITAGLIPTIN (JANUVIA) 100 MG TABLET Take 100 mg by mouth daily TRAMADOL (ULTRAM) 50 MG TABLET Take 1 tablet by mouth every 8 hours as needed for Pain for up to 30 days. Hydrocodone-acetaminophen, Atorvastatin, Celecoxib, Morphine, Other, Rofecoxib, and Statins FAMILY HISTORY Family History Problem Relation Age of Onset ? Lung Cancer Mother ? High Blood Pressure Mother ? Depression Mother ? Heart Disease Father ? High Blood Pressure Father ? Coronary Art Dis Father ? Heart Attack Father ? Hearing L (more content not included)... Normal [employer] (acquired by [employer]) Hemogram (CBC) w/Auto DiffOr dered By: Astrid Da Silva on 10-21-2020 Absolute Baso # 0.0 10*3/uL 0.0 - 0.2 10*3/uL [employer] Work Phone: [phone] Absolute Neut # 15.2 10*3/uL High 1.8 - 7.0 10*3/uL [employer] Phone: Basophils/100 WBC (Bld) 0.3 % 0.0 - 2.0 % [employer] Work Phone: Eosinophils (Bld) [#/Vol] 0.1 10*3/uL 0.0 - 0.5 10*3/uL [employer] Work Phone: Eosinophils/100 WBC (Bld) 0.3 % Low 1.0 - 6.0 % [employer] Phone: 1 Granulocytes/100 WBC (Bld) 87.7 % High 40.0 - 80.0 % [employer] Phone: Hematocrit (Bld) [Volume fraction] 41.2 % 35.0 - 47.0 % [employer] Work Phone: Hemoglobin.gastrointe stinal spec 1 Ql (Stl) 13.8 g/dL 11.7 - 16.0 g/dL [employer] Phone: [phone] Interpretation and review of laboratory results Abnormal [employer] Work Phone: [phone] Lymphocytes (Bld) [#/Vol] 1.3 10*3/uL 1.0 - 4.3 10*3/uL [employer] Work Phone: [phone] Lymphocytes/100 WBC (Bld) 7.3 % Low 20.0 - 40.0 % [employer] Work Phone: ( MCH (RBC) [Entitic mass] 30.3 pg 26.0 - 34.0 pg [facility] Work Phone: MCHC (RBC) [Mass/Vol] 33.4 % 32.0 - 36.0 % [employer] Work Phone: MCV (RBC) [Entitic vol] 90.8 fL 79.0 - 98.0 fL [employer] Work Phone: Monocytes (Bld) [#/Vol] 0.8 10*3/uL 0.0 - 0.8 10*3/uL [employer] Work Phone: Monocytes/100 WBC (Bld) 4.4 % 2.0 - 10.0 % [employer] Work Phone: Platelet distribution width (Bld) [Ratio] 13.0 % 11.5 - 14.5 % [employer] Work Phone: Platelet mean volume (Bld) [Entitic vol] 8.4 fL 7.4 - 10.4 fL [employer] Work Phone: Platelets (Bld) [#/Vol] 260 10*3/uL 140 - 440 10*3/uL [employer] Work Phone: RBC (Bld) [#/Vol] 4.54 10*6/uL 3.80 - 5.20 10*6/uL [employer] Work Phone: WBC (Bld) [#/Vol] 17.3 10*3/uL High 3.6 - 10.7 10*3/uL [employer] Work Phone: Test Performed by [facility], [address] [place], [place] [address] [employer] Work Phone: [employer] Work Phone: Hemogram w/ Autodiffon 10-21 Abs Baso Cnt 0.0 10*3/uL Normal 0.0-0.2 [employer] [facility] Comment on above: Performed By: #### T ROPN, CMP3, HEMDF #### [facility] [address] [place] [address] Abs Neutrophile Cnt 15.2 10*3/uL High 1.8-7.0 [facility] Comment on above: Performed By: #### T HEATHERN, CMP3, HEMDF #### [facility] [address] [place] [address] Basophils/100 WBC (Bld) 0.3 % Normal 0.0-2.0 [facility] Comment on above: Performed By: #### T ROPN, CMP3, HEMDF #### [facility] [address] [place] [address] Eosinophils (Bld) [#/Vol] 0.1 10*3/uL Normal 0.0-0.5 [facility] Comment on above: Performed By: #### T CECILY, CMP3, HEMDF #### [facility] [address] [place] [address] Eosinophils/100 WBC (Bld) 0.3 % Low 1.0-6.0 [facility] Comment on above: Performed By: #### T CECILY, CMP3, HEMDF #### [facility] [address] [place] [address] Erythrocyte distribution width (RBC) [Ratio] 13.0 % Normal 11.5-14.5 [facility] Comment on above: Performed By: #### T HEATHERN, CMP3, HEMDF #### [facility] [address] [place] [address] Granulocytes/100 WBC (Bld) 87.7 % High 40.0-80.0 [facility] Comment on above: Performed By: #### T HEATHERN, CMP3, HEMDF #### [facility] [address] [place] [address] Hematocrit (Bld) [Volume fraction] 41.2 % Normal 35.0-47.0 [facility] Comment on above: Performed By: #### T ROPN, CMP3, HEMDF #### [facility] [address] [place] [address] Hemoglobin (Bld) [Mass/Vol] 13.8 g/dL Normal 11.7-16.0 [facility] Comment on above: Performed By: #### Fabrizio TONY CMP3, HEMDF #### [facility] [address] [place] [address] Lymphocytes (Bld) [#/Vol] 1.3 10*3/uL Normal 1.0-4.3 [facility] Comment on above: Performed By: #### Fabrizio TONY CMP3, HEMDF #### [facility] [address] [place] [address] Lymphocytes/100 WBC (Bld) 7.3 % Low 20.0-40.0 [facility] Comment on above: Performed By: #### Fabrizio TONY CMP3, HEMDF #### [facility] [address] [place] [address] MCH (RBC) [Entitic mass] 30.3 pg Normal 26.0-34.0 [facility] Comment on above: Performed By: #### Fabrizio TONY CMP3, HEMDF #### [facility] [address] [place] [address] MCHC 33.4 % Normal 32.0-36.0 [facility] Comment on above: Performed By: #### Fabrizio TONY CMP3, HEMDF #### [facility] [address] [place] [address] MCV (RBC) [Entitic vol] 90.8 fL Normal 79.0-98.0 [facility] Comment on above: Performed By: #### Fabrizio TONY CMP3, HEMDF #### [facility] [address] [place] [address] Monocytes (Bld) [#/Vol] 0.8 10*3/uL Normal 0.0-0.8 [facility] Comment on above: Performed By: #### Fabrizio TONY CMP3, HEMDF #### [facility] [address] [place] [address] Monocytes/100 WBC (Bld) 4.4 % Normal 2.0-10.0 [facility] Comment on above: Performed By: #### Fabrizio TONY CMP3, HEMDF #### [facility] [address] [place] [address] Platelet mean volume (Bld) [Entitic vol] 8.4 fL Normal 7.4-10.4 [facility] Comment on above: Performed By: #### Fabrizio TONY CMP3, HEMDF #### [facility] [address] [place] [address] Platelets (Bld) [#/Vol] 260 10*3/uL Normal 140-440 [facility] Comment on above: Performed By: #### Fabrizio TONY CMP3, HEMDF #### [facility] [address] [place] [id number] RBC (Bld) [#/Vol] 4.54 10*6/uL Normal 3.80-5.20 [facility] Comment on above: Performed By: #### Fabrizio TONY, CMP3, HEMDF #### [facility] [address] [place] [address] WBC (Bld) [#/Vol] 17.3 10*3/uL High 3.6-10.7 [facility] Comment on above: Performed By: #### Fabrizio TONY CMP3, HEMDF #### [facility] [address] [place] [id number] Troponin Ion 10-21-2020 Troponin I.cardiac [Mass/Vol] ng/mL Normal 0.000-0.03 4 [facility] Comment on above: Result Comment: . Performed By: #### Fabrizio TONY CMP3, HEMDF #### [facility] [address] [place] [address] Troponin [id number] By: Astrid parada on 10-21-2020 Troponin I.cardiac [Mass/Vol] ng/mL 0.000 - 0.034 ng/mL [facility] Work Phone: [phone] Comment on above: . Test Performed by [facility], [address] [place] [address] [facility] Work Phone: [phone] [facility] Work Phone: CR Wrist Complete 3 Views Bi lateralon 07-23-2020 CR Wrist Complete 3 Views Bilateral Patient Name: CJ GILLIS Diagnostic Radiology ACCESSION EXAM DATE/TIME PROCEDURE ORDERING PROVIDER [id number] 07/23/2020 14:55 EDT CR Wrist Complete 3 OSCAR, RUBINA PALACIOS S Views Bilateral CPT code 88449 Reason For Exam (CR Wrist Complete 3 Views Bilateral) fall with injury Report BILATERAL WRISTS CLINICAL INDICATION: Pain after trauma AP, lateral, and oblique plain film views of the left and right wrists were obtained. COMPARISON: None FINDINGS: No fracture or dislocation of the right wrist is identified. There is no abnormal soft tissue swelling or radiopaque foreign body seen. There is moderate degenerative spurring and loss of joint space at the base of the left thumb. Slight chondrocalcinosis is noted within the triangular fibrocartilage and within the radiocarpal joint. No fracture or dislocation of the left wrist is identified. There is no abnormal soft tissue swelling or radiopaque foreign body seen. Moderate loss of joint space and degenerative spurring is noted at the base of the right thumb. Mild chondrocalcinosis is present within the radiocarpal joint and triangular fibrocartilage. IMPRESSION: No fracture or dislocation of the left wrist or right wrist is identified. Moderate degenerative changes at the bases of the left and right thumbs. There is mild chondrocalcinosis within the left and right wrists joints which can be seen in the setting of CPPD arthropathy. Diagnostic Radiology Report Report Dictated on Final Dictating Physician: MD HUYNH JONATHAN R Signed Date and Time: 07/26/2020 8:42 am Signed by: MD HUYNH JONATHAN R Transcribed Date and Time: 07/26/2020 8:43 Normal [facility] CT Head WO Contraston 2020 Patient Name: CJ GILLIS Computed Tomography ACCESSION EXAM DATE/TIME PROCEDURE ORDERING PROVIDER [id number] 06/09/2020 14:[address] Head or Brain w/o MD SANTANA, YEYO Contrast CPT code 81293 Reason For Exam (CT Head or Brain w/o Contrast) Other amnesia Report CLINICAL INFORMATION: Memory loss. Unenhanced CT images of the head from skull base to vertex were obtained. Coronal and sagittal reconstructed CT images of the head were also obtained. Comparison was made to the study dated 01/22/2018. The ventricles and sulci are dilated compatible with atrophy. Low attenuation is identified in the periventricular and subcortical white matter. There is a small focus of low attenuation in the right basal ganglia. These findings are similar to the prior study and are probably related to chronic small vessel ischemic change. There is no evidence of hemorrhage, mass or large acute infarct. There is no mass effect or significant shift of the midline structures. There are no extraaxial or posterior fossa masses or fluid collections. Atherosclerotic calcifications of the carotid and vertebral arteries are visualized. No significant abnormalities are noted in the region of the sella turcica. No significant abnormalities of the visualized portions of the paranasal sinuses or orbits are noted. The mastoid air cells are clear. IMPRESSION: 1. No definite evidence of an acute intracranial process. Atrophy with probable chronic small vessel ischemic changes. The appearance of the brain has not significantly changed when compared to the previous study. Report Dictated on --- Final --- Dictating Physician: DO PA ANTHONY Signed Date and Time: 06/09/2020 3:25 pm Signed by: DO PA ANTHONY Transcribed Date and Time: 06/09/2020 3:26 [facility] Work Phone: [facility], [facility] Incoming Radiology Results From [facility] - 06/09/2020 3:26 PM EST Patient Name: CJ GILLIS [facility]#: [id number] Computed Tomography ACCESSION EXAM DATE/TIME PROCEDURE ORDERING PROVIDER [id number] 06/09/2020 14:[address] Head or Brain w/o MD SANTANA, YEYO Contrast CPT code 82395 Reason For Exam (CT Head or Brain w/o Contrast) Other amnesia Report CLINICAL INFORMATION: Memory loss. Unenhanced CT images of the head from skull base to vertex were obtained. Coronal and sagittal reconstructed CT images of the head were also obtained. Comparison was made to the study dated 01/22/2018. The ventricles and sulci are dilated compatible with atrophy. Low attenuation is identified in the periventricular and subcortical white matter. There is a small focus of low attenuation in the right basal ganglia. These findings are similar to the prior study and are probably related to chronic small vessel ischemic change. There is no evidence of hemorrhage, mass or large acute infarct. There is no mass effect or significant shift of the midline structures. There are no extraaxial or posterior fossa masses or fluid collections. Atherosclerotic calcifications of the carotid and vertebral arteries are visualized. No significant abnormalities are noted in the region of the sella turcica. No significant abnormalities of the visualized portions of the paranasal sinuses or orbits are noted. The mastoid air cells are clear. IMPRESSION: 1. No definite evidence of an acute intracranial process. Atrophy with probable chronic small vessel ischemic changes. The appearance of the brain has not significantly changed when compared to the previous study. Report Dictated on --- Final --- Dictating Physician: DO PA ANTHONY Signed Date and Time: 06/09/2020 3:25 pm Signed by: DO PA ANTHONY Transcribed Date and Time: 06/09/2020 3:26 [facility] Work Phone: CT Head or Brain w/o Contras ton 06-09-2020 CT Head or Brain w/o Contrast Patient Name: CJ GILLIS [facility]#: [id number] Computed Tomography ACCESSION EXAM DATE/TIME PROCEDURE ORDERING PROVIDER [id number] 06/09/2020 14:[address] Head or Brain w/o MD SANTANA, YEYO Contrast CPT code 89903 Reason For Exam (CT Head or Brain w/o Contrast) Other amnesia Report CLINICAL INFORMATION: Memory loss. Unenhanced CT images of the head from skull base to vertex were obtained. Coronal and sagittal reconstructed CT images of the head were also obtained. Comparison was made to the study dated 01/22/2018. The ventricles and sulci are dilated compatible with atrophy. Low attenuation is identified in the periventricular and subcortical white matter. There is a small focus of low attenuation in the right basal ganglia. These findings are similar to the prior study and are probably related to chronic small vessel ischemic change. There is no evidence of hemorrhage, mass or large acute infarct. There is no mass effect or significant shift of the midline structures. There are no extraaxial or posterior fossa masses or fluid collections. Atherosclerotic calcifications of the carotid and vertebral arteries are visualized. No significant abnormalities are noted in the region of the sella turcica. No significant abnormalities of the visualized portions of the paranasal sinuses or orbits are noted. The mastoid air cells are clear. IMPRESSION: 1. No definite evidence of an acute intracranial process. Atrophy with probable chronic small vessel ischemic changes. The appearance of the brain has not significantly changed when compared to the previous study. Report Dictated on Final Dictating Physician: DO PA ANTHONY Signed Date and Time: 06/09/2020 3:25 pm Signed by: DO PA ANTHONY Transcribed Date and Time: 06/09/2020 3:26 Normal [facility] Microbiology: Culture, Urine on 11-12-[address] [facility] GE use only - for LinkLogic import when terms are not otherwise specified . Invalid Interpretation Code [facility] Office Visit: Pain following surgeryon 11-09-2016 Documentation of current medications (procedure) Done Invalid Interpretation Code [facility] Fall risk assessment No Invalid Interpretation Code [facility] Protein mass conc Done [facility] Tobacco smoking status NHIS Never Invalid Interpretation Code [facility] Tobacco smoking status NHIS Never smoker [facility] Tobacco use CPHS Never smoker Invalid Interpretation Code [facility] Vital Signs Date Time Vital Sign Value Performing Clinician Facility 02-01-2024 08:54-0400 Body height 159.4 cm Rubina Moore APRN - [employer] Work Phone: [facility] 02-01-2024 08:54-0400 Body mass index (BMI) [Ratio] 22.91 kg/m2 Rubina Moore TESTS SUPERINTENDENT - [employer] Work Phone: [facility] 02-01-2024 08:54-0400 Body weight 58.2 kg Rubina Moore TESTS SUPERINTENDENT - [employer] Work Phone: [facility] 02-01-2024 08:54-0400 Diastolic blood pressure 64 mm[Hg] Rubina Moore APRN - [employer] Work Phone: [facility] 02-01-2024 08:54-0400 Heart rate 78 /min Rubina Moore TESTS SUPERINTENDENT - [employer] Work Phone: [facility] 02-01-2024 08:54-0400 SaO2% (BldA) [Mass fraction] 98 % Rubina Moore TESTS SUPERINTENDENT - [employer] Work Phone: [facility] 02-01-2024 08:54-0400 Systolic blood pressure 108 mm[Hg] Rubina Moore TESTS SUPERINTENDENT - [employer] Work Phone: [facility] 11-09-2023 10:42-0400 Body height 159.4 cm Rubina Moore TESTS SUPERINTENDENT - [employer] Work Phone: [facility] 11-09-2023 10:42-0400 Body mass index (BMI) [Ratio] 22.96 kg/m2 Rubina Moore TESTS SUPERINTENDENT - [employer] Work Phone: [facility] 11-09-2023 10:42-0400 Body weight 58.33 kg Rubina Moore TESTS SUPERINTENDENT - [employer] Work Phone: [facility] 11-09-2023 10:42-0400 Diastolic blood pressure 68 mm[Hg] Rubina Moore TESTS SUPERINTENDENT - [employer] Work Phone: [facility] 11-09-2023 10:42-0400 Heart rate 74 /min Rubina Moore TESTS SUPERINTENDENT - [employer] Work Phone: [facility] 11-09-2023 10:42-0400 SaO2% (BldA) [Mass fraction] 95 % Rubina Moore TESTS SUPERINTENDENT - [employer] Work Phone: [facility] 11-09-2023 10:42-0400 Systolic blood pressure 102 mm[Hg] Rubina Moore TESTS SUPERINTENDENT - [employer] Work Phone: [facility] 07-26-2023 14:54-0400 Diastolic blood pressure 57 mm[Hg] Augie Barragan TESTS SUPERINTENDENT - [employer] Work Phone: [facility] 07-26-2023 14:54-0400 Heart rate 80 /min Augie Barragan TESTS SUPERINTENDENT - [employer] Work Phone: [facility] 07-26-2023 14:54-0400 Systolic blood pressure 96 mm[Hg] Augie Barragan TESTS SUPERINTENDENT - [employer] Work Phone: [facility] 07-26-2023 14:43-0400 Body height 159.4 cm Augie Barragan TESTS SUPERINTENDENT - [employer] Work Phone: [facility] 07-26-2023 14:43-0400 Body mass index (BMI) [Ratio] 22.28 kg/m2 Augie Barragan TESTS SUPERINTENDENT - [employer] Work Phone: [facility] 07-26-2023 14:43-0400 Body weight 56.61 kg Augie Barragan TESTS SUPERINTENDENT - [employer] Work Phone: [facility] 03-16-2023 08:06-0500 Diastolic blood pressure 76 mm[Hg] Rubina Moore TESTS SUPERINTENDENT - [employer] Work Phone: [facility] 03-16-2023 08:06-0500 Systolic blood pressure 142 mm[Hg] Rubinatrena Moore TESTS SUPERINTENDENT - [employer] Work Phone: [facility] 03-16-2023 07:54-0500 Body height 161.3 cm Rubina Moore TESTS SUPERINTENDENT - [employer] Work Phone: [facility] 03-16-2023 07:54-0500 Body mass index (BMI) [Ratio] 21.76 kg/m2 Rubinatrena Moore TESTS SUPERINTENDENT - [employer] Work Phone: [facility] 03-16-2023 07:54-0500 Body weight 56.61 kg Rubinatrena Moore TESTS SUPERINTENDENT - [employer] Work Phone: [facility] 03-16-2023 07:54-0500 Heart rate 75 /min Rubina Oscar TESTS SUPERINTENDENT - [employer] Work Phone: [facility] 03-16-2023 07:54-0500 SaO2% (BldA) [Mass fraction] 98 % Rubina Oscar TESTS SUPERINTENDENT - [employer] Work Phone: [facility] 01-29-2023 11:46-0400 Diastolic blood pressure 62 mm[Hg] Rubina Moore TESTS SUPERINTENDENT - [employer] Work Phone: [facility] 01-29-2023 11:46-0400 Systolic blood pressure 142 mm[Hg] Rubina Moore TESTS SUPERINTENDENT - [employer] Work Phone: [facility] 01-29-2023 10:46-0400 Body height 161.3 cm Rubina Moore TESTS SUPERINTENDENT - [employer] Work Phone: [facility] 01-29-2023 10:46-0400 Body mass index (BMI) [Ratio] 22.21 kg/m2 Rubina Moore TESTS SUPERINTENDENT - [employer] Work Phone: [facility] 01-29-2023 10:46-0400 Body weight 57.79 kg Rbuina Moore TESTS SUPERINTENDENT - [employer] Work Phone: [facility] 01-29-2023 10:46-0400 Heart rate 65 /min Rubina Moore TESTS SUPERINTENDENT - [employer] Work Phone: [facility] 01-29-2023 10:46-0400 SaO2% (BldA) [Mass fraction] 96 % Rubina Moore TESTS SUPERINTENDENT - [employer] Work Phone: [facility] 11-13-2022 13:22-0400 Body height 157.5 cm Rubina Moore TESTS SUPERINTENDENT - [employer] Work Phone: [facility] 11-13-2022 13:22-0400 Body mass index (BMI) [Ratio] 22.86 kg/m2 Rubina Moore TESTS SUPERINT[employer]ENT - [employer] Work Phone: [facility] 11-13-2022 13:22-0400 Body weight 56.7 kg Rubina Moore TESTS SUPERINTENDENT - [employer] Work Phone: [facility] 11-13-2022 13:22-0400 Diastolic blood pressure 60 mm[Hg] Rubina Moore TESTS SUPERINTENDENT - [employer] Work Phone: [facility] 11-13-2022 13:22-0400 Heart rate 70 /min Rubina Moore TESTS SUPERINTENDENT - [employer] Work Phone: [facility] 11-13-2022 13:22-0400 SaO2% (BldA) [Mass fraction] 96 % Rubina Moore TESTS SUPERINTENDENT - [employer] Work Phone: [facility] 11-13-2022 13:22-0400 Systolic blood pressure 122 mm[Hg] Rubina Moore TESTS SUPERINTENDENT - [employer] Work Phone: [facility] 04-27-2022 15:42-0500 Respiratory rate 16 /min [facility] 04-27-2022 12:52-0500 SaO2% (BldA) [Mass fraction] 94 % [facility] 04-27-2022 12:18-0500 Body height 165.1 cm [facility] 04-27-2022 12:18-0500 Body mass index (BMI) [Ratio] 20.5 kg/m2 [facility] 04-27-2022 12:18-0500 Body temperature 97.5 [degF] [facility] 04-27-2022 12:18-0500 Body weight 55.77 kg [facility] 04-27-2022 12:18-0500 Diastolic blood pressure 88 mm[Hg] [facility] 04-27-2022 12:18-0500 Heart rate 86 /min [facility] 04-27-2022 12:18-0500 Systolic blood pressure 118 mm[Hg] [facility] 10-21-2020 12:13-0400 Body height 160 cm Nani Villareal MD Work Phone: [facility] Work Phone: 10-21-2020 12:13-0400 Body mass index (BMI) [Ratio] 23.03 kg/m2 Nani Villareal MD Work Phone: [facility] Work Phone: 10-21-2020 12:13-0400 Body temperature 95.5 [degF] Nani Villareal MD Work Phone: [facility] Work Phone: 10-21-2020 12:13-0400 Body weight 58.97 kg Nani Villareal MD Work Phone: [facility] Work Phone: 10-21-2020 12:13-0400 Diastolic blood pressure 76 mm[Hg] Nani Villareal MD Work Phone: [facility] Work Phone: 10-21-2020 12:13-0400 Heart rate 82 /min Nani Villareal MD Work Phone: [facility] Work Phone: 10-21-2020 12:13-0400 Respiratory rate 18 /min Nani Villareal MD Work Phone: [facility] Work Phone: 10-21-2020 12:13-0400 SaO2% (BldA) [Mass fraction] 95 % Nani Villareal MD Work Phone: [facility] Work Phone: 10-21-2020 12:13-0400 Systolic blood pressure 146 mm[Hg] Nani Villareal MD Work Phone: [facility] Work Phone: 11-09-2016 13:44-0400 BMI (Body Mass Index) 21.6 kg/m2 Kenyetta Arguelles NP [facility] 11-09-2016 13:44-0400 Body Temperature 97.2 [degF] Kenyetta Arguelles [facility] 11-09-2016 13:44-0400 BP Diastolic 65 mm[Hg] Kenyetta Arguelles NP [facility] 11-09-2016 13:44-0400 BP Systolic 116 mm[Hg] Kenyetta Arguelles NP [facility] 11-09-2016 13:44-0400 Height 166.37 cm Kenyetta Arguelles NP [facility] 11-09-2016 13:44-0400 Pulse (Heart Rate) 65 /min Kenyetta Arguelles NP [facility] 11-09-2016 13:44-0400 Respiratory Rate 16 /min Kenyetta Arguelles NP [facility] 11-09-2016 13:44-0400 Weight 59.78 kg Kenyetta Arguelles NP [facility] Encounters Encounter Date Encounter Type Care Provider Facility Start: 08-28-2024 End: 08-28-2024 Telephone encounter Rey Rowan MD Work Phone: [place] [facility] Adult Start: 08-28-2024 End: 08-28-2024 ambulatory REY ROWAN Facility:[facility] Start: 08-27-2024 End: 08-27-2024 Telephone encounter Jet Smart LPN Pre Anesthesia Start: 08-06-2024 End: 08-08-2024 Evaluation and management of inpatient CHAPARRO NAVA Facility:[facility] Start: 08-06-2024 End: 08-06-2024 Emergency department patient visit [facility] Facility:[facility] Start: 08-04-2024 End: 08-04-2024 ambulatory [facility] Facility:[facility] Start: 06-12-2024 End: 06-12-[address] Carlos Herron MD Work Phone: [facility] Work Phone: Start: 06-12-2024 End: 06-12-2024 Departed Referred Demario Coates -[facility] [address] Start: 06-12-2024 End: 06-12-2024 ambulatory [facility] Facility:[facility] Start: 05-12-2024 ambulatory [facility] Facility :[facility] Start: 05-12-2024 Registered Referred Demario Coates -[facility] [address] Start: 03-05-2024 End: 03-05-2024 ambulatory [facility] Facility:[facility] Start: 02-15-2024 End: 02-15-2024 ambulatory Demario RODRIGUEZ Facility:[facility] Start: 02-11-2024 End: 02-11-2024 Orders Only Rubina Moore TESTS SUPERINTENDENT - [employer] Work Phone: [facility] Start: 02-04-2024 End: 02-04-2024 Orders Only Rubina Moore TESTS SUPERINTENDENT - [employer] Work Phone: [facility] Comment on above: Type 2 diabetes darrion itus with hyperlipidemia (HCC) (HCC); Diabetic polyneuropathy associated with diabetes mellitus due to underlying condition ([facility]/HCC) (HCC) Start: 02-01-2024 End: 02-01-2024 Patient encounter procedure Rubina S Oscar TESTS SUPERINTENDENT - [employer] Work Phone: [facility] Comment on above: Medicare annual well ness visit, subsequent (Primary Dx); Type 2 diabetes mellitus without complication, without long-term current use of insulin ([facility]) (HCC); Diabetic polyneuropathy associated with diabetes mellitus due to underlying condition ([facility]/HCC) (HCC); Encounter for diabetic foot exam ([facility]); Atherosclerosis of coronary artery of wales heart without angina pectoris, unspecified vessel or lesion type; Essential hypertension, benign; Mixed hyperlipidemia; Statin declined; 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 Start: 02-01-2024 End: 02-01-2024 Encounter for general adult medical examination without abnormal findings RUBINA OSCAR [facility] Start: 01-31-2024 End: 01-31-2024 Telephone encounter Rubina S Oscar TESTS SUPERINTENDENT - [employer] Work Phone: [facility] Comment on above: Advice Only Start: 01-28-2024 End: 01-28-2024 Refill Rubina S Oscar TESTS SUPERINTENDENT - [employer] Work Phone: [facility] Comment on above: Atherosclerosis of c oronary artery of wales heart without angina pectoris, unspecified vessel or lesion type; Essential hypertension, benign Start: 01-21-2024 End: 01-21-2024 Orders Only Rubina Moore TESTS SUPERINTENDENT - [employer] Work Phone: [facility] Start: 01-16-2024 End: 01-16-2024 ambulatory CARLOS HERRON [facility] Start: 01-10-2024 End: 01-10-2024 Refill Rubina S Oscar TESTS SUPERINTENDENT - [employer] Work Phone: [facility] Start: 01-01-2024 End: 01-01-2024 Refill Elliot Benoit TESTS SUPERINTENDENT - [employer] Work Phone: [facility] Start: 01-01-2024 End: 01-01-2024 Emergency department patient visit Herb Alta Facility:[facility] Start: 11-09-2023 End: 11-09-2023 ambulatory [facility] Start: 11-09-2023 End: 11-09-2023 Office outpatient visit 25 minutes Rubina Moore TESTS SUPERINTENDENT - [employer] Work Phone: [facility] Comment on above: Type 2 diabetes darrion itus without complication, without long- term current use of insulin ([facility]) ([facility]) (Primary Dx); Diabetic polyneuropathy associated with diabetes mellitus due to underlying condition ([facility]) ([facility]); Encounter for diabetic foot exam ([facility]); Mixed Alzheimer's and vascular dementia ([facility]); Osteoarthritis, unspecified osteoarthritis type, unspecified site; Chronic pain of both feet; Mild episode of recurrent major depressive disorder ([facility]); Mixed stress and urge urinary incontinence; Overactive bladder Type 2 diabetes darrion itus with hyperlipidemia ([facility]) ([facility]) (Primary Dx); Diabetic polyneuropathy associated with diabetes mellitus due to underlying condition ([facility]) ([facility]); Encounter for diabetic foot exam ([facility]); Mixed Alzheimer's and vascular dementia ([facility]); Osteoarthritis, unspecified osteoarthritis type, unspecified site; Chronic pain of both feet; Mild episode of recurrent major depressive disorder ([facility]); Mixed stress and urge urinary incontinence; Overactive bladder Start: 10-16-2023 End: 10-16-2023 Emergency department patient visit Barry Garcia Facility:[facility] Start: 10-12-2023 End: 10-12-2023 Refill Rubina S Oscar TESTS SUPERINTENDENT - WORK[employer] Work Phone: [facility] Start: 07-26-2023 End: 07-26-2023 Office outpatient new 60 minutes Augie Laurel TESTS SUPERINTENDENT - WORK[employer] COMPENSATION [employer] Work Phone: [facility] Geriatrics Comment on above: 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) (Primary Dx) Start: 06-20-2023 Orders Only Rubina Moore TESTS SUPERINTENDENT - WORKERS COMPENSATION [employer] Work Phone: [facility] Comment on above: Recurrent UTI (Prima ry Dx) Start: 05-04-2023 Orders Only Rubina Moore TESTS SUPERINTENDENT - WORKERS COMPENSATION [employer] Work Phone: [facility] Comment on above: Hematuria, unspecifi ed type; Leukocytes in urine Start: 03-24-2023 Refill Rubina Moore TESTS SUPERINTENDENT - WORK[employer]ATION [employer] Work Phone: [facility] Comment on above: Chronic pain of both feet; Osteoarthritis, unspecified osteoarthritis type, unspecified site Start: 03-16-2023 End: 03-16-2023 Office outpatient visit 25 minutes Rubina Moore TESTS SUPERINTENDENT - WORK[employer]ATION [employer] Work Phone: [facility] Medicine Comment on above: Mild episode of recu rrent major depressive disorder (HCC) (Primary Dx); Mixed hyperlipidemia; Dysuria; Urinary frequency; Essential hypertension, benign Start: 03-16-2023 End: 03-16-2023 ambulatory RUBINA MOORE [facility] Start: 03-05-2023 End: 03-05-2023 ambulatory LYNETTE SANTIAGO Facility:[facility] Start: 03-05-2023 End: 03-05-2023 Patient encounter procedure Lynette Grayreza Work Phone: Podiatry Comment on above: Diabetic polyneuropa thy associated with diabetes mellitus due to underlying condition ([facility]) (Primary Dx); Callus of foot; Arthritis of foot Start: 01-29-2023 End: 01-29-2023 Patient encounter procedure Rubina Moore TESTS SUPERINTENDENT - WORKERS COMPENSATION [employer] Work Phone: [facility] Comment on above: Medicare annual [facility] visit, subsequent (Primary Dx); Mixed Alzheimer's and vascular dementia ([facility]); Type 2 diabetes mellitus without complication, without long-term current use of insulin ([facility]) ([facility]); Encounter for diabetic foot exam ([facility]); Atherosclerosis of coronary artery without angina pectoris, unspecified vessel or lesion type, unspecified whether wales or transplanted heart; Essential hypertension, benign; Osteoarthritis, unspecified osteoarthritis type, unspecified site; Chronic pain of both feet; Mild episode of recurrent major depressive disorder ([facility]); Mixed stress and urge urinary incontinence; Hematuria, unspecified type; Leukocytes in urine Start: 11-13-2022 End: 11-13-2022 Orders Only Rubina Moore TESTS SUPERINTENDENT - WORK[employer] Work Phone: [facility] Comment on above: Unspecified fall, in itial encounter Unspecified fall, in itial encounter (Primary Dx) Start: 11-13-2022 End: 11-13-2022 Office outpatient visit 15 minutes Rubina Moore TESTS SUPERINTENDENT - WORK[employer]ATION [employer] Work Phone: [facility] Medicine Comment on above: Injury due to fall, initial encounter (Primary Dx); Pain in joint of right hip Start: 11-08-2022 Orders Only Rubina Moore TESTS SUPERINTENDENT - WORK[employer]ATION [employer] Work Phone: [facility] Comment on above: Leukocytes in urine (Primary Dx); Other microscopic hematuria Start: 10-31-2022 Refill Rubina Moore TESTS SUPERINTENDENT - WORK[employer]ATION [employer] Work Phone: [facility] Medicine Comment on above: Mild episode of recu rrent major depressive disorder (HCC) Start: 10-09-2022 Refill Carlos Herron MD Work Phone: [facility] Start: 09-27-2022 Orders Only Rubina Moore TESTS SUPERINTENDENT - WORK[employer] COMP[employer]ATION [employer] Work Phone: [facility] Start: 07-10-2022 Refill Carlos Herron MD Work Phone: [facility] Start: 06-12-2022 Telephone encounter Katey Wiley [facility] Comment on above: Urinary Problem Start: 04-27-2022 End: 04-27-2022 Emergency department patient visit [facility] Start: 04-24-2022 Refill Rubina Moore TESTS SUPERINTENDENT - WORK[employer]ATION [employer] Work Phone: [facility] Start: 01-10-2021 End: 01-10-2021 Subsequent hospital visit by physician Kareem [facility] Work Phone: Radiology Comment on above: Rib injury [S29.9XXA ] Start: 10-21-2020 End: 10-21-2020 Evaluation and management of inpatient Nnai Villareal MD Work Phone: [facility] [place] Comment on above: Proctocolitis (Prima ry Dx); Leukocytosis, unspecified type Start: 07-23-2020 End: 07-23-2020 Subsequent hospital visit by physician Rubina Moore TESTS SUPERINTENDENT - WORK[employer] Work Phone: [facility] Comment on above: Injury due to fall, initial encounter Start: 06-14-2020 End: 06-14-2020 Subsequent hospital visit by physician Yeyo Jackson Work Phone: [facility] Start: 06-09-2020 End: 06-09-2020 Subsequent hospital visit by physician Yeyo Jackson Work Phone: [facility] Comment on above: Memory loss Start: 05-31-2020 End: 05-31-2020 Subsequent hospital visit by physician Yeyo Jackson Work Phone: [facility] Procedures Date Procedure Procedure Detail Performing Clinician Start: 02-01-2024 Urnls dip stick/tabl et rgnt non-auto w/o micrscp Rubina Moore TESTS SUPERINTENDENT - [employer] Work Phone: Start: 11-09-2023 Urine albumin quantitative Rubina Moore TESTS SUPERINTENDENT - WORK[employer]ATION [employer] Work Phone: Start: 11-09-2023 Hemoglobin glycosylated a1c Rubina Moore TESTS SUPERINTENDENT - WORK[employer]ATION [employer] Work Phone: Start: 06-20-2023 Urnls dip stick/tabl et rgnt non-auto w/o micrscp Rubina Moore TESTS SUPERINTENDENT - WORKERS [employer]ATION [employer] Work Phone: Start: 03-16-2023 Urnls dip stick/tabl et rgnt non-auto w/o micrscp Rubina Moore TESTS SUPERINTENDENT - WORK[employer]ATION [employer] Work Phone: Start: 01-29-2023 Culture bacterial quanttative colony count urine Rubina Moore TESTS SUPERINTENDENT - WORK[employer]ATION [employer] Work Phone: Start: 01-29-2023 Urnls dip stick/tabl et rgnt non-auto w/o micrscp Rubina Moore TESTS SUPERINTENDENT - WORK[employer]ATION [employer] Work Phone: Start: 01-29-2023 Comprehensive metabo lic panel Rubina Moore TESTS SUPERINTENDENT - WORK[employer]ATION [employer] Work Phone: Start: 01-29-2023 Lipid panel Rubina Coker TESTS SUPERINTENDENT - WORKERS [employer]ATION [employer] Work Phone: Start: 06-12-2022 Urnls dip stick/tabl et rgnt non-auto w/o micrscp Carlos Herron MD Work Phone: Start: 06-12-2022 Culture bacterial quanttative colony count urine Carlos Herron MD Work Phone: Start: 04-27-2022 X-ray of chest posteroanterior view Start: 04-27-2022 CT cervical spine wi thout contrast Start: 04-27-2022 CT of head without contrast Start: 01-27-2022 Lipid 1996 panel - S tayla or Plasma Rubina Moore TESTS SUPERINTENDENT - WORK[employer]ATION [employer] Work Phone: Start: 01-10-2021 Radex ribs uni w/pos teroant ch minimum 3 views Shraddhalarry Menjivar TESTS SUPERINTENDENT.WORK[employer]ENSATION [employer] Work Phone: Start: 10-21-2020 Computed tomography of abdomen and pelvis with contrast Nani Villareal MD Work Phone: Start: 10-21-2020 Comprehensive metabo lic panel Astrid PALMER Work Phone: Start: 10-21-2020 Ecg routine ecg w/le ast 12 lds w/i&r Astrid PALMER Work Phone: Start: 06-09-2020 Ct head/brain w/o co ntrast material Yeyo M Santana Work Phone: Start: 11-09-2016 End: 11-09-2016 Urinalysis nonauto w/o scope Kenyetta Johnie cameron [employer] Work Phone: Plan of Treatment Date Care Activity Detail Author Start: 01-31-2025 COVID-19 Vaccine () COVID-19 Vaccine ( season) [facility] Comment on above: Postponed from 12/02/2023 (Patient Refus ed) Start: 01-31-2025 Diabetes: Estimated Glomerular Filtration Rate for Kidney Health Diabetes: Estimated Glomerular Filtration Rate for Kidney Health [facility] Start: 01-31-2025 DTaP/Tdap/Td Vaccines (1 - Tdap) DTaP/Tdap/Td Vaccines (1 - Tdap) [facility] Comment on above: Postponed from 04/03/2007 (Patient Refus ed) Start: 01-31-2025 Hepatitis B surface antibody level LDL Cholesterol [facility] Start: 01-31-2025 Pneumococcal Vaccine: 65+ Years (2 of 2 - PCV) Pneumococcal Vaccine: 65+ Years (2 of 2 - PCV) [facility] Comment on above: Postponed from 01/01/2021 (Patient Refus ed) Start: 01-31-2025 Screening for osteoporosis Bone Density Scan [facility] Comment on above: Postponed from 1940 (Patient Refus ed) Start: 01-31-2025 Zoster Vaccines (1 of 2) Zoster Vaccines (1 of 2) [facility] Comment on above: Postponed from 1990 (Patient Refus ed) Start: 12-01-2024 Influenza vaccination Influenza Vaccine (Season Ended) [facility] Start: 11-08-2024 Diabetes: Urine Albumin-Creatinine Ratio for Kidney Health Diabetes: Urine Albumin-Creatinine Ratio for Kidney Health [facility] Start: 11-08-2024 Hepatitis B screening Urine Albumin:Creatinine Ratio [facility] Start: 08-28-2024 End: 08-28-2024 Cysto w/insert ureteral stent INSERTION STENT URETERAL Renal calculus, left 08/28/2024 1:38 PM EDT [facility] Start: 08-28-2024 End: 08-28-2024 Cysto w/simple removal stone & stent CYSTOURETHROSCOPY W/ REMOVE URETERAL STENT Renal calculus, left 08/28/2024 1:38 PM EDT ME OR Start: 08-28-2024 End: 08-28-2024 Cysto w/ureteroscopy w/lithotripsy LASER CYSTOURETHROSCOPY W/ URETEROSCOPY AND/OR PYELOSCOPY W/ LITHOTRIPSY HOLMIUM Renal calculus, left 08/28/2024 1:38 PM EDT ME OR Start: 08-28-2024 End: 08-28-2024 Admission to same day surgery center 08/28/2024 12:30 PM EDT - 08/28/2024 2:26 PM EDT Surgery [facility] Surgery [address] [place] [id number] Rey Rowan MD [address] [place] [address] LASER CYSTOURETHROSCOPY W/ URETEROSCOPY AND/OR PYELOSCOPY W/ LITHOTRIPSY MASTER PULSE HOLMIUM [facility] Surgery Comment on above: LASER CYSTOURETHROSCOPY W/ URETEROSCOPY AND/OR PYELOSCOPY W/ LITHOTRIPSY MASTER PULSE HOLMIUM Start: 08-28-2024 End: 08-28-2024 Cysto w/insert ureteral stent INSERTION STENT URETERAL Renal calculus, left 08/28/2024 12:30 PM EDT [facility] Start: 08-28-2024 End: 08-28-2024 Cysto w/simple removal stone & stent CYSTOURETHROSCOPY W/ REMOVE URETERAL STENT Renal calculus, left 08/28/2024 12:30 PM EDT [facility] Start: 08-28-2024 End: 08-28-2024 Cysto w/ureteroscopy w/lithotripsy LASER CYSTOURETHROSCOPY W/ URETEROSCOPY AND/OR PYELOSCOPY W/ LITHOTRIPSY HOLMIUM Renal calculus, left 08/28/2024 12:30 PM EDT [facility] Start: 08-28-2024 Subsequent hospital visit by physician 08/28/2024 12:30 PM EDT Hospital Encounter [facility] Surgery [address] [place] [address] Rey Rowan MD [address] [place] [address] Renal calculus, left [N20.0] [facility] Comment on above: Renal calculus, left [N20.0] Start: 07-31-2024 Depression Monitoring Depression Monitoring [facility] Start: 07-31-2024 Hemoglobin A1c measurement HbA1C [facility] Start: 04-02-2024 Advance Directive Discussion Advance Directive Discussion [facility] Start: 03-14-2024 RSV Immunization aged 60 or older (1 - 1-dose 60+ series) RSV Immunization aged 60 or older (1 - 1-dose 60+ series) [facility] Comment on above: Postponed from 2000 (Patient Refus ed) Start: 03-14-2024 RSV Immunization for Adults (1 - 1-dose 75+ series) RSV Immunization for Adults (1 - 1-dose 75+ series) [facility] Comment on above: Postponed from 2015 (Patient Refus ed) Start: 02-29-2024 Medicare Advantage Annual Wellness Visit (AWV) Medicare Advantage Annual Wellness Visit (AWV) [facility] Start: 02-01-2024 End: 01-31-2025 Bacteria identified in Urine by Culture Urine culture (clean catch) Microbiology Routine Recurrent UTI Expected: 02/01/2024 (Approximate), Expires: 01/31/2025 [facility] Comment on above: Expected: 02/01/2024 (Approximate), Expi res: 01/31/2025 Start: 02-01-2024 End: 01-31-2025 CBC panel - Blood by Automated count CBC Lab Routine Mixed Alzheimer's and vascular dementia (HCC) Osteoarthritis, unspecified osteoarthritis type, unspecified site Urinary frequency Screening for deficiency anemia Expected: 02/01/2024 (Approximate), Expires: 01/31/2025 [facility] Comment on above: Expected: 02/01/2024 (Approximate), Expi res: 01/31/2025 Start: 02-01-2024 End: 01-31-2025 Comprehensive metabolic 1998 panel - Serum or Plasma Comprehensive metabolic panel Lab Routine Type 2 diabetes mellitus without complication, without long-term current use of insulin (CMS/HCC) (HCC) Diabetic polyneuropathy associated with diabetes mellitus due to underlying condition (CMS/HCC) (HCC) Atherosclerosis of coronary artery of wales heart without angina pectoris, unspecified vessel or lesion type Essential hypertension, benign Mixed hyperlipidemia Mixed Alzheimer's and vascular dementia (HCC) Osteoarthritis, unspecified osteoarthritis type, unspecified site Chronic pain of both feet Mild episode of recurrent major depressive disorder (HCC) Recurrent UTI Mixed stress and urge urinary incontinence Overactive bladder Urinary frequency Expected: 02/01/2024 (Approximate), Expires: 01/31/2025 [facility] [employer] Work Phone: Comment on above: Expected: 02/01/2024 (Approximate), Expi res: 01/31/2025 Start: 02-01-2024 End: 01-31-2025 Hemoglobin A1c measurement Hemoglobin A1c Lab Routine Type 2 diabetes mellitus without complication, without long-term current use of insulin (CMS/HCC) (HCC) Diabetic polyneuropathy associated with diabetes mellitus due to underlying condition (CMS/HCC) (HCC) Expected: 02/01/2024 (Approximate), Expires: 01/31/2025 [facility] Comment on above: Expected: 02/01/2024 (Approximate), Expi res: 01/31/2025 Start: 02-01-2024 End: 01-31-2025 Lipid 1996 panel - Serum or Plasma Lipid panel Lab Routine Mixed hyperlipidemia Expected: 02/01/2024 (Approximate), Expires: 01/31/2025 [facility] Comment on above: Expected: 02/01/2024 (Approximate), Expi res: 01/31/2025 Start: 02-01-2024 End: 02-01-2024 Patient encounter procedure [facility] Start: 01-30-2024 COVID-19 Vaccine (#1) COVID-19 Vaccine (#1) [facility] Comment on above: Postponed from 1940 (Patient Refus ed) Start: 01-30-2024 COVID-19 Vaccine () COVID-19 Vaccine ( season) [facility] Comment on above: Postponed from 12/01/2022 (Patient Refus ed) Start: 01-30-2024 DTaP/Tdap/Td Vaccines (1 - Tdap) DTaP/Tdap/Td Vaccines (1 - Tdap) [facility] Comment on above: Postponed from 04/03/2007 (Patient Refus ed) Start: 01-30-2024 Hepatitis B surface antibody level LDL Cholesterol [facility] Start: 01-30-2024 Hepatitis B Vaccines (1 of 3 - Risk 3-dose series) Hepatitis B Vaccines (1 of 3 - Risk 3-dose series) [facility] Comment on above: Postponed from 2000 (Patient Refus ed) Start: 01-30-2024 Pneumococcal Vaccine: 65+ Years (2 - PCV) Pneumococcal Vaccine: 65+ Years (2 - PCV) [facility] Comment on above: Postponed from 01/01/2021 (Patient Refus ed) Start: 01-30-2024 Pneumococcal Vaccine: 65+ Years (2 of 2 - PCV) Pneumococcal Vaccine: 65+ Years (2 of 2 - PCV) [facility] Comment on above: Postponed from 01/01/2021 (Patient Refus ed) Start: 01-30-2024 Screening for osteoporosis Bone Density Scan [facility] Comment on above: Postponed from 1940 (Patient Refus ed) Start: 01-30-2024 Zoster Vaccines (1 of 2) Zoster Vaccines (1 of 2) [facility] Comment on above: Postponed from 1990 (Patient Refus ed) Start: 01-25-2024 Depression Monitoring Depression Monitoring [facility] Start: 12-02-2023 COVID-19 Vaccine (1 - 2023-24 season) COVID-19 Vaccine ( season) [facility] Start: 12-02-2023 Covid-19 Vaccine ( season) Covid-19 Vaccine ( season) [facility] Start: 12-02-2023 Influenza vaccination Influenza Vaccine (#1) [facility] Start: 11-09-2023 End: 11-08-2024 Microalbumin/Creatinine panel in random Urine Microalbumin / creatinine urine ratio Lab Routine Type 2 diabetes mellitus without complication, without long-term current use of insulin (CMS/HCC) (HCC) Diabetic polyneuropathy associated with diabetes mellitus due to underlying condition (CMS/HCC) (HCC) Expected: 11/09/2023 (Approximate), Expires: 11/08/2024 [facility] Work Phone: Comment on above: Expected: 11/09/2023 (Approximate), Expi res: 11/08/2024 Start: 11-09-2023 End: 11-09-2023 Patient encounter procedure 11/09/2023 10:40 AM EDT Office Visit [facility] [address] [place], [place] [id number] Rubina Moore TESTS SUPERINTENDENT - WORKERS COMPENSATION [employer] [address] [facility] [place] [place], [place] [id number] [facility] Start: 09-30-2023 Influenza vaccination Influenza Vaccine (#1) [facility] Comment on above: Postponed from 12/01/2022 (Patient Refus ed) Start: 09-18-2023 End: 09-18-2023 Patient encounter procedure 09/18/2023 3:45 PM EDT Office Visit [facility] Geriatrics [address] [place] [address] Augie Barragan TESTS SUPERINTENDENT - WORKERS COMPENSATION [employer] [address] [place], [place] [id number] Aslhee Barnhart TESTS SUPERINTENDENT - WORKERS COMPENSATION [employer] [address] [place] [address] [facility] Start: 09-15-2023 Depresssion Monitoring Depresssion Monitoring [facility] Start: 08-03-2023 End: 08-03-2023 Patient encounter procedure 08/03/2023 10:40 AM EDT Office Visit [facility] [address] [place] [address] Rubina Moore, TESTS SUPERINTENDENT - WORKERS COMPENSATION [employer] [address] [facility] [place] [address] [place] [address] [facility] Start: 07-31-2023 Depresssion Monitoring Depresssion Monitoring [facility] Start: 07-31-2023 Hemoglobin A1c measurement HbA1C [facility] Start: 07-31-2023 Hemoglobin A1c/Hemoglobin.total in Blood HbA1C [facility] Start: 07-26-2023 End: 07-26-2023 Patient encounter procedure 07/26/2023 2:45 PM EDT Office Visit [facility] [place] [address] Augie Barragan TESTS SUPERINTENDENT - WORKERS COMPENSATION [employer] [address] [place], [place] [address] [facility] Start: 06-20-2023 End: 06-19-2024 Bacteria identified in Urine by Culture Urine culture (clean catch) Microbiology Routine Recurrent UTI Expected: 06/20/2023 (Approximate), Expires: 06/19/2024 [facility] Work Phone: Comment on above: Expected: 06/20/2023 (Approximate), Expi res: 06/19/2024 Start: 04-02-2023 Advance Directive Discussion Advance Directive Discussion [facility] Start: 04-02-2023 Medicare Advantage Annual Wellness Visit Medicare Advantage Annual Wellness Visit [facility] Start: 03-16-2023 End: 03-16-2024 Bacteria identified in Urine by Culture Urine culture Microbiology Routine Dysuria Urinary frequency Expected: 03/16/2023 (Approximate), Expires: 03/16/2024 [facility] Work Phone: Comment on above: Expected: 03/16/2023 (Approximate), Expi res: 03/16/2024 Start: 03-16-2023 End: 03-16-2023 Patient encounter procedure 03/16/2023 8:00 AM EST Office Visit [facility] [address] [facility] [place] [address] Rubina Moore, TESTS SUPERINTENDENT - WORKERS [employer]ATION [employer] [address] [facility] [place] [address] [facility] Start: 01-29-2023 End: 01-30-2024 Microalbumin/Creatinine panel in random Urine Microalbumin / creatinine urine ratio Lab Routine Type 2 diabetes mellitus without complication, without long-term current use of insulin ([facility]/HCC) (HCC) Expected: 01/29/2023 (Approximate), Expires: 01/30/[address] [facility] Work Phone: Comment on above: Expected: 01/29/2023 (Approximate), Expi res: 01/30/2024 Start: 01-29-2023 End: 01-29-2023 Patient encounter procedure [facility] Start: 01-27-2023 Lipid panel Lipid Panel [facility] Start: 12-01-2022 Influenza vaccination [facility] Start: 11-13-2022 End: 11-14-2023 XR Hip - right Views XR hip 4+ views right Imaging Routine Injury due to fall, initial encounter Pain in joint of right hip Expected: 11/13/2022, Expires: 11/14/2023 [employer] Work Phone: Comment on above: Expected: 11/13/2022, Expires: Start: 11-08-2022 End: 11-09-2023 Bacteria identified in Urine by Culture Urine culture (clean catch) Microbiology Routine Leukocytes in urine Other microscopic hematuria Expected: 11/08/2022 (Approximate), Expires: 11/09/[address] [facility] Work Phone: Comment on above: Expected: 11/08/2022 (Approximate), Expi res: 11/09/2023 Start: 07-31-2022 End: 07-31-2022 Patient encounter procedure [facility] Start: 04-29-2022 Hemoglobin A1c measurement Diabetes: Hemoglobin A1C [facility] Start: 04-02-2022 Advance Directive Discussion Advance Directive Discussion [facility] Start: 04-02-2022 Depression Assessment Depression Assessment [facility] Start: 01-26-2022 Hepatitis B screening Urine Albumin:Creatinine Ratio [facility] Start: 01-26-2022 Urine screening for protein Diabetes: Urine Protein Screening [facility] Start: 12-01-2021 Influenza vaccination Influenza Vaccine (#1) [facility] Start: 10-21-2021 Creatinine measurement Creatinine monitoring [employer] Work Phone: Start: 10-21-2021 Potassium monitoring [facility] Start: 06-11-2021 COVID-19 Vaccine (1) COVID-19 Vaccine (1) [employer] Work Phone: Comment on above: Postponed from 1956 (Patient Refus ed) Postponed from 04/16 (Patient Refused) Start: 03-18-2021 Lipid panel Lipid screen [employer] Work Phone: Start: 01-01-2021 Creatinine measurement Creatinine monitoring [employer] Work Phone: Start: 01-01-2021 DTaP/Tdap/Td vaccine (1 - Tdap) DTaP/Tdap/Td vaccine (1 - Tdap) [employer] Work Phone: Comment on above: Postponed from 1959 (Patient Refus ed) Postponed from 04/03 (Patient Refused) Start: 01-01-2021 Pneumococcal Vaccine: 50+ (2 of 2 - PCV) Pneumococcal Vaccine: 50+ (2 of 2 - PCV) [facility] Start: 01-01-2021 Pneumococcal Vaccine: 65+ (2 - PCV) Pneumococcal Vaccine: 65+ (2 - PCV) [facility] Start: 01-01-2021 Pneumococcal Vaccine: 65+ (2 of 2 - PCV) Pneumococcal Vaccine: 65+ (2 of 2 - PCV) [facility] Start: 01-01-2021 Pneumococcal Vaccine: 65+ Years (2 - PCV) Pneumococcal Vaccine: 65+ Years (2 - PCV) [facility] Start: 01-01-2021 Pneumococcal Vaccine: 65+ Years (2 of 2 - PCV) Pneumococcal Vaccine: 65+ Years (2 of 2 - PCV) [facility] Start: 01-01-2021 Potassium monitoring Potassium monitoring [employer] Work Phone: Start: 01-01-2021 Screening for osteoporosis DEXA (modify frequency per FRAX score) [employer] Work Phone: Comment on above: Postponed from 1995 (Patient Refus ed) Start: 01-01-2021 Shingles Vaccine (1 of 2) Shingles Vaccine (1 of 2) [employer] Work Phone: Comment on above: Postponed from 1990 (Patient Refus ed) Start: 12-17-2020 End: 12-17-2020 Office Visit 12/17/2020 Office Visit Family Medicine Rubina Moore, TESTS SUPERINTENDENT - [employer] [address], [place] [id number] [facility] Start: 12-01-2020 Influenza vaccination Flu vaccine (#1) [employer] Work Phone: Start: 10-28-2020 End: 10-28-2020 Patient encounter procedure 10/28/2020 Procedure visit Geriatric Medicine [facility] Start: 06-14-2020 End: 06-14-2020 Office Visit 06/14/2020 Office Visit Geriatric Medicine Yeyo Jackson MD [address] [place] [address] [phone] [facility] Start: 06-11-2020 End: 06-11-2020 Office Visit 06/11/2020 Office Visit Family Medicine Rubina Moore, TESTS SUPERINTENDENT - [employer] [address], [place] [phone] [facility] Start: 06-01-2020 3 comp foot exam completed Diabetic Foot Exam [facility] Start: 06-01-2020 Diabetic foot examination Diabetic Foot Exam [facility] Start: 02-18-2020 Glaucoma screening Dilated Retinal Exam [facility] Start: 02-18-2020 Hepatitis C antibody, confirmatory test Dilated Retinal Exam [facility] Start: 01-02-2020 Annual Wellness Visit (AWV) Annual Wellness Visit (AWV) [facility] Work Phone: Start: 11-09-2016 End: 11-09-[address] [facility] Start: 11-09-2016 End: 11-09-2016 *CUUID - Urine RAHEEL Culture - Identificatn *CUUID - Urine RAHEEL Culture - Identificatn [facility] Start: 2015 RSV Vaccine (1 - 1-dose 75+ series) RSV Vaccine (1 - 1-dose 75+ series) [facility] Start: 04-03-2007 DTaP/Tdap/Td Vaccines (1 - Tdap) DTaP/Tdap/Td Vaccines (1 - Tdap) [facility] Start: 04-03-2007 Urine microalbumin profile DTaP,Tdap,Td Vaccine (1 - Tdap) [facility] Start: 2005 Bone Density Screening Bone Density Screening [facility] Start: 2005 Screening for osteoporosis Bone Density Screening [facility] Start: 2000 RSV Vaccine (1 - 1-dose 60+ series) RSV Vaccine (1 - 1-dose 60+ series) [facility] Start: 1990 Shingrix Vaccine (1 of 2) Shingrix Vaccine (1 of 2) [facility] Start: 1990 Zoster Vaccines (1 of 2) Zoster Vaccines (1 of 2) [facility] Start: 1958 Anxiety Screening Anxiety Screening [facility] Start: 1958 Depression Screening Depression Screening [facility] Start: 1956 COVID-19 Vaccine (1 of 2) COVID-19 Vaccine (1 of 2) [facility] Work Phone: Start: 1952 Depresssion Monitoring Depresssion Monitoring [facility] Start: 1950 Diabetic foot examination Diabetes: Foot Exam [facility] Start: 1950 Glaucoma screening Diabetes: Retinopathy Screening [facility] Start: 1950 Preventive dental service Diabetes: Dental Exam [facility] Start: 1940 COVID-19 Vaccine (#1) COVID-19 Vaccine (#1) [facility] Start: 1940 Hepatitis B Vaccines (1 of 3 - 3-dose series) Hepatitis B Vaccines (1 of 3 - 3-dose series) [facility] Start: 1940 Screening for osteoporosis Bone Density Scan [facility] [employer] End: 10-24-2020 Basic metabolic 2000 panel - Serum or Plasma Basic Metabolic Panel Lab Routine Daily for 3 Occurrences starting 10/22/2020 until 10/24/2020 [employer] Work Phone: Comment on above: Daily for 3 Occurrences starting until 10/24/2020 End: 10-24-2020 CBC W Auto Differential panel - Blood CBC auto differential Lab Routine Daily for 3 Occurrences starting 10/22/2020 until 10/24/2020 [employer] Work Phone: Comment on above: Daily for 3 Occurrences starting until 10/24/2020 End: 10-21-2020 Culture, Blood 2 Culture, Blood 2 Microbiology STAT One Time for 1 Occurrences starting 10/21/2020 until 10/21/2020 [employer] Work Phone: Comment on above: One Time for 1 Occurrences starting 10/01 until 10/21/2020 Culture, Blood 2 Culture, Blood 2 Microbiology STAT 10/21/2020 4:53 PM EDT [employer] Work Phone: EKG 12 Lead - Chest Pain EKG 12 Lead - Chest Pain ECG STAT 10/21/2020 1:51 PM EDT [employer] Work Phone: End: 10-21-2020 Gastrointestinal Panel, Molecular Gastrointestinal Panel, Molecular Microbiology Routine One Time for 1 Occurrences starting 10/21/2020 until 10/21/2020 [employer] Work Phone: Comment on above: One Time for 1 Occurrences starting 10/01 until 10/21/2020 End: 10-21-2020 Glucose [Mass/volume] in Serum or Plasma POCT GLUCOSE Point of Care Testing STAT One Time for 1 Occurrences starting 10/21/2020 until 10/21/2020 [employer] Work Phone: Comment on above: One Time for 1 Occurrences starting 10/01 until 10/21/2020 End: 10-21-2020 Microscopic examination of blood, culture Culture, Blood Microbiology STAT One Time for 1 Occurrences starting 10/21/2020 until 10/21/2020 [employer] Work Phone: Comment on above: One Time for 1 Occurrences starting 10/01 until 10/21/2020 Microscopic examinat ion of blood, culture Culture, Blood Microbiology STAT 10/21/2020 4:53 PM EDT [employer] Work Phone: OUTSIDE PROCEDURE SCAN OUTSIDE P ROCEDURE SCAN Procedures Ordered: 11/13/2022 [facility] 1CLICK Comment on above: Ordered: 11/13/2022 Oxygen therapy [[facility] Data Set] Initiate Oxygen Therapy Protocol Respiratory Care Routine Daily until discontinued starting 10/21/2020 [employer] Phone: Comment on above: Daily until discontinued starting 2020 Patient Education Using an Incen tive Spirometer ED Chest Wall Contusion ED Bruise, Rib [facility] Work Phone: Patient referral [facility] Work Phone: End: 10-21-2020 Urinalysis Urinalysis Lab STAT One Time for 1 Occurrences starting 10/21/2020 until 10/21/2020 [employer] Phone: Comment on above: One Time for 1 Occurrences starting 10/01 until 10/21/2020 End: 11-13-2022 XR Hip - right 3 Views [facility] [employer] Work Phone: Comment on above: Once for 1 Occurrences starting 11/14/19 until 11/13/2022 End: 07-23-2020 XR WRIST BILATERAL 3 VW XR WRIST BILATERAL 3 VW Imaging Routine Injury due to fall, initial encounter 1 Occurrences starting 07/23/2020 until 07/23/2020 [employer] Phone: Comment on above: 1 Occurrences starting 07/23/2020 until 07/23/2020 XR Wrist Bilateral Minimum 3 VW XR Wrist Bilateral Minimum 3 VW Imaging Routine Injury due to fall, initial encounter 07/23/2020 2:37 PM EDT [facility] Work Phone: Immunizations Immunization Date Immunization Notes Care Provider Dontae rodriguez 01-02-2020 Influenza, High-dose , Quadv, 65 yrs +, IM (Fluzone) [facility]2020 pneumococcal polysaccharide vaccine, 23 valent [facility] 01-02-2020 influenza virus vacc ine, unspecified formulation Rubina Moore 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 2024 Medicaid [id number] 2023 Self-pay 2021 Medicare HMO [employer] MEDICARE [id number] 2019 Medicare [employer] MEDICARE A ETNA MEDICARE-ADVANTAGE PPO [id number] 2019-Present [address] [place] [address] Medicare [id number] 2011 Medicare [id number] 2011 Medicare (Managed Care) [employer] [facility] [id number] 2011 Private Health Insurance [facility] [id number] Unknown [id number] Unknown [id number] Unknown [id number] Unknown [id number] Unknown [id number] Unknown [id number] Unknown 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 [employer] Work Phone: Start: 08-18-2020 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 No [facility] Do you belong to any clubs or organizations such as hinduism groups, unions, fraternal or athletic groups, or school groups? Yes [facility] Are you now , , , , never or living with a partner? [facility] How often to you hav e a drink containing alcohol? Never [facility] How many standard dr inks containing alcohol do you have on a typical day? Patient does not drink [facility] Do you feel stress - tense, restless, nervous, or anxious, or unable to sleep at night because your mind is troubled all the time - these days [OSQ] Only a little [facility] (I/We) worried lacey er (my/our) food would run out before (I/we) got money to buy more. Never true [facility] [employer] Start: 12-15-2019 Gender identity Identifies as female gender (finding) [facility] Start: 12-15-2019 Sexual orientation Heterosexual (finding) [facility] Start: 12-11-2020 End: 01-10-2021 Exposure to SARS-CoV-2 (event) Unable to assess [facility] Start: 10-31-2021 End: 07-04-2024 Sex Female (finding) [facility] Medical Equipment Procedure Code Equipment Code Equipment Origin al Text Equipment Identifier Dates [id number] Start: 07-01-2018 End: 01-29-2023 Comment on above: Test 2 times daily, Insulin Dep? No E11.9 DM 2 Test Two times a day . Insulin Dep? No E11.9 DM 2 Sling Gynecare T vt Exact Gynecological Stress Urinary Incontinence - [id number] Start: 02-02-2016 Test two times a day & as needed for symptoms of irregular blood glucose. [id number] Start: 01-29-2023 Test 2 times rosa ly, Insulin Dep? No E11.9 DM 2 [id number] Start: 07-01-2018 Test Two times a day. Insulin Dep? No E11.9 DM 2 [id number] Start: 07-01-2018 Goals Date Patient Goal Desired Activity /State Comment on above: Self-Management Plan : Anxiety/Depression Patient Stated Goal: To feel less agitated and depressed. Barriers to success: stress and chronic health conditions Plan for overcoming my barriers: Take medication as prescribed. Encouraged and recommended by provider. Confidence: 11/09 Date goal set: 01/02/20 Patient given educational materials below via AVS. Patient received counseling about current lifestyle goal. Patient was encouraged to take medications as prescribed. Discussed the importance of counseling. Discussed social support resources. Discussed potentially disabling symptoms of their anxiety/depression, which could potentially render them unable to function adequately. Provider Goal: To find the value of finding pleasure in daily living. Discussed how relationships, personal fulfillment, and optimism can work together to combat anxiety/depression. Patient given after visit summary which includes educational information on Lexapro. Discussed use, benefit, and side effects of prescribed medications and barriers to medication compliance addressed, if applicable. All patient questions answered and patient voiced understanding. Patient was given a copy of this, and was advised to call if any questions. Formatting of this n ote might be different from the original. Self-Management Plan: Anxiety/Depression Patient Stated Goal: To feel less agitated and depressed. Barriers to success: stress and chronic health conditions Plan for overcoming my barriers: Take medication as prescribed. Encouraged and recommended by provider. Confidence: 11/09 Date goal set: 01/02/20 Patient given educational materials below via AVS. Patient received counseling about current lifestyle goal. Patient was encouraged to take medications as prescribed. Discussed the importance of counseling. Discussed social support resources. Discussed potentially disabling symptoms of their anxiety/depression, which could potentially render them unable to function adequately. Provider Goal: To find the value of finding pleasure in daily living. Discussed how relationships, personal fulfillment, and optimism can work together to combat anxiety/depression. Patient given after visit summary which includes educational information on Lexapro. Discussed use, benefit, and side effects of prescribed medications and barriers to medication compliance addressed, if applicable. All patient questions answered and patient voiced understanding. Patient was given a copy of this, and was advised to call if any questions. Functional Status Date Assessment Result Facility 08-08-2024 Are you deaf, or do you have serious difficulty hearing No 08/08/2024 2:46 PM EDT Elizabet Lackey, INDIRA No [facility] 08-08-2024 Are you blind, or do you have serious difficulty seeing, even when wearing glasses No 08/08/2024 2:46 PM EDT Elizabet Lackey, INDIRA No [facility] 08-08-2024 Do you have serious difficulty walking or climbing stairs Yes 08/08/2024 2:46 PM EDT Elizabet Lackey, RN Yes [facility] 08-08-2024 Do you have difficul ty dressing or bathing Yes 08/08/2024 2:46 PM EDT Elizabet Lackey, RN Yes [facility] 08-08-2024 Because of a physica l, mental, or emotional condition, do you have difficulty doing errands alone such as visiting a physician's office or shopping Yes 08/08/2024 2:46 PM EDT Elizabet Lackey, RN Yes [facility] Mental Status Date Assessment Result Facility 08-08-2024 Because of a physica l, mental, or emotional condition, do you have serious difficulty concentrating, remembering, or making decisions Yes 08/08/2024 2:46 PM EDT Elizabet Lackey, RN Yes [facility] Clinical Notes 01-10-2021 to 08-28-2024 Telephone Encounter - Norma Pleitez RN - 08/27/2024 2:10 PM EDTTelephone Encounter - Norma Pleitez RN - 08/27/2024 2:10 PM EDTHirma Moore APRN - [employer] - 02/01/2024 9:00 AM EDT Note Date & Type Note Facility 08-28-2024 Note HNO ID: [id number] Author: GUERITA ROMERO, RN Service: ? Author Type: Registered Nurse Type: Nursing Progress Note Filed: 08/28/2024 15:52 Note Text: Called report to [facility]. Gave report to Naya nurse. 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 WELL FLOW OPERATOR: Alvin Olivera APRN.WELL FLOW OPERATOR Performed by: WELL FLOW OPERATOR Indications and Patient Condition Indications for airway management: anesthesia Preoxygenated: yes anesthesia circuit Patient position: sniffing Method: asleep Cricoid Pressure: No Manual In-Line Stabilization: No Difficult Mask: No Final Airway Details Final airway type: supraglottic airway Number of attempts at approach: 1 Final Supraglottic Airway: i-gel Size 3 Seal Adequate: yes Failed airway: no Airway not difficult SIGNATURE: Alvin Olivera APRN.WELL FLOW OPERATOR PATIENT NAME: Cj Gillis DATE: August 28, 2024 TIME: 2:15 PM CSN: [id number] [facility] 08-27-2024 Telephone encounter Note Images from the original note were not included. [facility] PATIENT PREOPERATIVE INSTRUCTIONS Dr. Rey Rowan has scheduled you for your procedure at this surgery center: [facility]: [phone] -- [address] [place] [address]. Please read below carefully for your personalized instructions. Dietary Restrictions: - Nothing to eat or drink after midnight except for a sip of water with approved medications. - Do not drink any alcohol after midnight the night before your surgery. Medications: Unless instructed differently below, stay on all of your medications until your surgery. If you start any new medications after today's visit, please contact your surgeon. May take all AM meds except HOLD Metformin and Tradjenta on day of surgery; Also hold Vitamin D 3 If you start any new medications after today's visit, please contact the surgeon's office. If you are currently using a bedk-dge-pous injectable or oral medication for diabetes or weight loss such as Dulaglutide (Trulicity), Exenatide (Byetta, Bydureon), Liraglutide (Victoza, Saxenda), Semaglutide (Ozempic, Wegovy, Rybelsus), or Tirzepatide (Mounjaro), the medicine should be stopped at least 7 days before surgery. These medicines can cause food to remain in your stomach for a very long time and increase the risks from surgery and anesthesia. Not stopping the medication for a long enough time may result in your surgery being rescheduled. Blood Thinning Medications: - Stop NSAIDS (Ibuprofen, Advil, Aleve, Motrin, Celebrex, Mobic, etc.) 7 days before surgery, as directed by your surgeon. - Stop Aspirin 7 days before surgery, as directed by your surgeon. - Stop ALL herbal and dietary supplements 7 days before surgery. Important Reminders: - Candy, mints, and tobacco products are NOT permitted the morning of surgery. - Hearing aids, dentures and glasses may be worn the morning of surgery. - NO jewelry, body piercings, makeup, hairpins or contacts are to be worn the day of surgery. If you develop symptoms such as a fever, cold, or flu, or have other changes to your health within TWO DAYS of scheduled surgery or the morning of surgery, please contact the surgery center above. Personal Belongings: -Please have photo ID and insurance cards. -If you do not have a copy of advance directives on file with us, please bring a copy with you on the day of surgery. - Leave ALL valuables and money at home or with family members. - Please bring high-quality footwear, such as sneakers, to the hospital for ambulating post-surgery. Arrival Time for Surgery: - The Surgery Center or hospital where you are having surgery will call the afternoon before surgery (or Sunday for Sunday surgery) with a scheduled arrival time. - If you have not heard by 4 pm, please contact the surgery center above. Please be aware that emergency situations arise, which may delay or change your surgical time. If this happens, we will notify you as soon as possible and regret any inconvenience. If you already have an Advance Directive, please fax a copy to [phone] or email to for it to be added to your chart. If you do not have an Advance Directive, you can find the appropriate form and more information at [email or web address]. We recommend that you complete the Advance Directive form found on the website and bring it with you the day of your surgery. It can be witnessed and scanned into your chart that day. Norma Pleitez RN [facility] Work Phone: 08-27-2024 Miscellaneous Notes Images from the original note were not included. [facility] PATIENT PREOPERATIVE INSTRUCTIONS Dr. Rey Rowan has scheduled you for your procedure at this surgery center: [facility]: [phone] -- [address] [facility] [address]. Please read below carefully for your personalized instructions. Dietary Restrictions: - Nothing to eat or drink after midnight except for a sip of water with approved medications. - Do not drink any alcohol after midnight the night before your surgery. Medications: Unless instructed differently below, stay on all of your medications until your surgery. If you start any new medications after today's visit, please contact your surgeon. May take all AM meds except HOLD Metformin and Tradjenta on day of surgery; Also hold Vitamin D 3 If you start any new medications after today's visit, please contact the surgeon's office. If you are currently using a vpru-fah-slsl injectable or oral medication for diabetes or weight loss such as Dulaglutide (Trulicity), Exenatide (Byetta, Bydureon), Liraglutide (Victoza, Saxenda), Semaglutide (Ozempic, Wegovy, Rybelsus), or Tirzepatide (Mounjaro), the medicine should be stopped at least 7 days before surgery. These medicines can cause food to remain in your stomach for a very long time and increase the risks from surgery and anesthesia. Not stopping the medication for a long enough time may result in your surgery being rescheduled. Blood Thinning Medications: - Stop NSAIDS (Ibuprofen, Advil, Aleve, Motrin, Celebrex, Mobic, etc.) 7 days before surgery, as directed by your surgeon. - Stop Aspirin 7 days before surgery, as directed by your surgeon. - Stop ALL herbal and dietary supplements 7 days before surgery. Important Reminders: - Candy, mints, and tobacco products are NOT permitted the morning of surgery. - Hearing aids, dentures and glasses may be worn the morning of surgery. - NO jewelry, body piercings, makeup, hairpins or contacts are to be worn the day of surgery. If you develop symptoms such as a fever, cold, or flu, or have other changes to your health within TWO DAYS of scheduled surgery or the morning of surgery, please contact the surgery center above. Personal Belongings: -Please have photo ID and insurance cards. -If you do not have a copy of advance directives on file with us, please bring a copy with you on the day of surgery. - Leave ALL valuables and money at home or with family members. - Please bring high-quality footwear, such as sneakers, to the hospital for ambulating post-surgery. Arrival Time for Surgery: - The Surgery Center or hospital where you are having surgery will call the afternoon before surgery (or Sunday for Sunday surgery) with a scheduled arrival time. - If you have not heard by 4 pm, please contact the surgery center above. Please be aware that emergency situations arise, which may delay or change your surgical time. If this happens, we will notify you as soon as possible and regret any inconvenience. If you already have an Advance Directive, please fax a copy to [phone] or email to for it to be added to your chart. If you do not have an Advance Directive, you can find the appropriate form and more information at [email or web address]. We recommend that you complete the Advance Directive form found on the website and bring it with you the day of your surgery. It can be witnessed and scanned into your chart that day. Norma Pleitez RN Nurse at [facility] (Jamshid Sarah) requesting medication instructions for tomorrow's surgery. Pt did not see PACC-seen in ED. Can you help? documented in this encounter [facility] 08-27-2024 Telephone encounter Note Nurse at [facility] (Jamshid Sarah) requesting medication instructions for tomorrow's surgery. Pt did not see PACC-seen in ED. Can you help? [facility] 08-08-2024 Note HNO ID: [id number] Author: ELLIOT PORTER RN Service: Care Management Author Type: Registered Nurse Type: Care Mgt Progress Note Filed: 08/08/2024 15:28 Note Text: CARE MANAGEMENT DISCHARGE NOTE SERVICE DATE: August 08, 2024 SERVICE TIME: 3:27 PM Admission Date: 08/06/2024 LOS: 2 days Discharge Arrangement Discharge Arrangement: Extended Care Facility Provider Name: Jamshid Sarah Caregiver Assessment Caregiver is ready, willing and able to meet the patient's needs as recommended by the inter-professional team: Yes Name of Caregiver: Jamshid Sarah Transportation Arrangements Transportation Arrangements: Ambulance Transportation Agency and Phone #:: [facility] ( [facility] ) [phone] / [phone] Date of Trip: 08/08/24 Time of Trip: 1530 Type of Service: BLS Non-emergency Is Patient Medicaid Pending?: No Was transportation financial coverage discussed with family?: Spouse Superintendent Pipelines Location: [facility] Destination: [facility] Financial Care Management Responsibility: None Handoff Communication: Handoff to: Primary Care Physician, Other Caregiver Primary Care Physician Name/Phone: summary of care to PCPCarlos Other Caregiver Name/Phone: Jamshid Sarah is aware of DC and transport time, RN to call report Additional Information: Patient is discharging back to [facility]. [facility] to transport patient via cot at 3:30pm. RN is aware. Met with patient and her in room to update on plan for DC and transport time. They are in agreement with plans. SIGNATURE: Alejandra Porter RN PATIENT NAME: Cj Gillis DATE: August 08, 2024 TIME: 3:27 PM [facility] 08-07-2024 Note HNO ID: [id number] Author: ELLIOT PORTER RN Service: Care Management Author Type: Registered Nurse Type: Care Mgt Initial Assessment Filed: 08/07/2024 11:34 Note Text: CARE MANAGEMENT: ASSESSMENT AND DISCHARGE PLAN SERVICE DATE: August 07, 2024 SERVICE TIME: 11:29 AM PCP: Carlos Herron MD Primary Contact: Extended Emergency Contact Information Primary Emergency Contact: Sukumar Gillis [facility] Mobile Relation: Spouse Secondary Emergency Contact: Guerita Rivera Address: Call with medication and appointment questions. Prefer text if at all possible [place] [phone] [facility] Mobile Relation: Daughter Admission Status: Inpatient Insurance Provider: [place] MEDICARE PPO Discharge Planning requested by: Per Department Practice Potential Transition Plans [facility] Facility/Intermediate Care Facility Advance Directives Current Advance Directive: Health Care Power of [place], Living Will In Chart: No Current Living Arrangements and Support Lives with: Type of Residence: Extended Care Facility Does the patient have to climb stairs at home?: No Care Facility Name: [facility] Support: Spouse/significant other, Children How do you manage to accomplish the following: Needs Assistance: Ambulation, Bathe/Shower, Dress, Meals/Meal Prep, Going to the bathroom, Medication Management Current Services/Equipment Current Post-Acute Service(s): DME Current DME Type: Walker, Wheelchair-manual Discharge Planning Patient Goal(s): Be able to go home, General wellness [place] of Choice Explained: [place] of [place] Given: Yes (per patient's , plan to return to [facility]) Level of Care Discussed: [facility] Facility Are you interested in bedside delivery of your medications? No Discharge Planning Participant(s): Patient, Spouse/significant other Patient/Family Comments: spouse at bedside Caregiver Assessment: Caregiver is ready, willing and able to meet the patient's needs as recommended by the inter-professional team: Yes Name of Caregiver: [facility] Transport at Discharge: Transportation Arrangements: Ambulance Needs Prior to Discharge: Needs Prior to Discharge: To Be Determined, Accepting Facility, Precertification, Discharge Transportation Post-Acute Discharge Plan: Chart reviewed and met with patient and her in room. Patient's provided patient hx and information for IA as patient has dementia. Patient is from [facility]. Needs assistance with care and is mobile with a walker but per has been using a w/c the past week since she's been weaker. DC plan is to return to [facility] and will need cot transport. Therapy evals are pending. Patient may qualify for skilled services under Medicare pending auth when she returns. is agreeable to plan for skilled if appropriate. Return referral sent to [facility]. SIGNATURE: Alejandra Porter RN PATIENT NAME: Cj Gillis DATE: August 07, 2024 TIME: 11:29 AM [facility] 08-07-2024 Note HNO ID: [id number] Author: BARNEY MARIE MD Service: Hospital Medicine Author Type: Physician Type: Progress Notes Filed: 08/07/2024 20:40 Note Text: DEPARTMENT OF HOSPITAL MEDICINE PROGRESS NOTE Hospital Medicine/Primary Attending: Barney Marie MD NIGHT AND WEEKEND COVERAGE: [place] COVERAGE: From 7am - 7pm, please call SOUND SIILVER After 7pm, please call cross cover pager #[phone] Subjective INTERVAL HPI: Patient seen and examined. Follow up for urinary tract infection and stone.History limited due to patients condition.Patients denies dysuria and no abdominal pain.Leukocytosis improving MEDICATIONS: Reviewed Objective PHYSICAL EXAM: BP 131/64 Pulse 85 Temp (Src) 100.3 (Axillary) Resp 18 Ht 5' 3 (1.60m) Wt 114 lb (51.7kg) SpO2 93% BMI 20.20 kg/(m2). O2 Therapy: Room Air, Liters (Numeric Only): 2.0 Physical Exam Performed General: Laying down in bed, comfortable. On room air HEENT: Atraumatic, Normocephalic. PERRLA. Cardiovascular: RRR. S1 and S2 observed with no murmurs/gallops/rubs. Respiratory: Breath sounds equal bilaterally. No wheezing/rhonchi/rales observed. Abdomen: Soft, non tender. No rebound tenderness/guarding. Normal bowel sounds. EXTREMITIES: No pedal edema bilaterally Neuro: Alert, awake and oriented x 1. Cranial nerves grossly intact. Strength 5/5 throughout and no sensory deficits observed. Lines, Drains, and Airways Line Duration Peripheral 08/06/24 Right Forearm 20 Gauge 1 day Peripheral 08/06/24 1746 [facility] Right Antecubital 20 Gauge <1 day DATA: Diagnostic tests reviewed for today's visit: Most recent labs and imaging results. Most recent labs Most recent imaging Assessment/Plan Principal Problem: Sepsis (HCC) (POA: Yes) Assessment AND Plan: Possibly secondary to UTI from referral with dialysis causing obstruction. Status post stent placement. Continue ceftriaxone, follow results of urine and blood cultures. Can de-escalate antibiotics based on above. Tylenol for mild pain and Oxy for moderate-severe pain. Active Problems: DM type 2 (diabetes mellitus, type 2) (HCC) (POA: Yes) Assessment AND Plan: Most recent A1c 7.4. Continue Accu-Chek monitoring with patient's Tradjenta. Will add on SSI Essential hypertension, benign (POA: Yes) Assessment AND Plan: Continue metoprolol 12.5 mg daily and lisinopril 5 mg daily Hyperlipidemia (POA: Yes) Assessment AND Plan: Continue rosuvastatin OA (osteoarthritis) (POA: Yes) Assessment AND Plan: Continue duloxetine CAD (coronary artery disease) (POA: Yes) Assessment AND Plan: Continue statin as above Urinary, incontinence, stress female (POA: Yes) Assessment AND Plan: Outpatient follow-up for management of stress incontinence Left ureteral stone (POA: Unknown)/Renal calculus (POA: Yes) Assessment AND Plan: POD1 L ureteral stent insertion and yan insertion and Void trial this am as patient is hemodynamically stable Hypomagnesemia (POA: Yes) Assessment AND Plan: Continue magnesium repletion Leukocytosis (POA: Yes) Assessment AND Plan: Likely in setting of infection. Improving. Continue to trend white blood cell count Resolved Problems: Lactic acidosis (POA: Yes) Elevated troponin (POA: Yes) Medication and Non-Pharmacologic VTE Prophylaxis/Anticoagulants 08/06/242044 pneumatic compression sleeve(s) (pa,oh) VTE Prophylaxis: VTE prophylaxis appropriate Disposition: To be determined Plan of care discussed with: Provider, RN, Patient SIGNATURE: Barney Marie MD PATIENT NAME: Cj Gillis DATE: August 07, 2024 TIME: 10:56 AM etx [id number] [facility] 08-07-2024 Note HNO ID: [id number] Author: SHEILA HOLDEN MD Service: Urology Author Type: Resident Type: Progress Notes Filed: 08/07/2024 07:08 Note Text: Attestation signed by Ariana Virgen MD at 08/11/2024 12:35 AM [facility] STAFF PHYSICIAN NOTE OF PERSONAL INVOLVEMENT IN CARE I have reviewed the progress note obtained and documented by the resident. I have discussed the case and management of the patient's care. Ariana Virgen MD Associate Staff Urogynecology and Reconstructive Pelvic surgery [facility] Urology UROLOGY PROGRESS NOTE PATIENT NAME: Cj Gillis DATE OF : 1940 ADMISSION DATE: 08/06/2024 3:53 PM Subjective POD1 left ureteral stent insertion. No nausea, vomiting, fevers or chills. Tolerating diet. Objective VS: BP 122/65 Pulse 86 Temp 36.6 ?C (97.8 ?F) (Axillary) Resp 15 Ht 160 cm (5' 3) Wt 51.7 kg (114 lb) SpO2 95% BMI 20.19 kg/m? I AND O - 24hr: Intake/Output Summary (Last 24 hours) at 08/07/2024 0645 Last data filed at 08/07/2024 0617 Gross per 24 hour Intake -- Output 425 ml Net -425 ml Physical Exam: General: Neck: Resp: Abdomen: No acute distress Supple Normal effort Soft, non-tender, nondistended : No flank ttp, yan removed this am Labs and Imaging Studies LABS: BMP: Glucose (mg/dL) Date Value 08/07/2024 153 07/01/2018 135 Potassium (mmol/L) Date Value 08/07/2024 3.8 07/01/2018 4.6 Sodium (mmol/L) Date Value 08/07/2024 136 07/01/2018 138 Chloride (mmol/L) Date Value 08/07/2024 101 07/01/2018 103 CO2 (mmol/L) Date Value 08/07/2024 27 07/01/2018 26 Creatinine (mg/dL) Date Value 08/07/2024 0.80 07/01/2018 0.59 BUN (mg/dL) Date Value 08/07/2024 16 07/01/2018 24 Anion Gap (mmol/L) Date Value 08/07/2024 8 07/01/2018 9 Calcium (mg/dL) Date Value 07/01/2018 9.6 Calcium, Total (mg/dL) Date Value 08/07/2024 8.5 CBC: Hemoglobin (g/dL) Date Value 08/07/2024 9.8 07/01/2018 12.8 Hematocrit (%) Date Value 08/07/2024 30.1 07/01/2018 41.5 WBC (k/uL) Date Value 08/07/2024 12.56 07/01/2018 7.36 Platelet Count (k/uL) Date Value 08/07/2024 196 07/01/2018 286 Urinalysis: Specific Simla, Ur Date Value Ref Range Status 08/06/2024 1.020 1.005 - 1.030 Final Glucose, Urine Date Value Ref Range Status 08/06/2024 Negative Negative Final Bilirubin, Urine Date Value Ref Range Status 08/06/2024 Negative Negative Final Ketones, Urine Date Value Ref Range Status 08/06/2024 Negative Negative Final Hemoglobin/Blood,Ur Date Value Ref Range Status 08/06/2024 1+ (A) Negative Final Protein, Urine Date Value Ref Range Status 08/06/2024 Trace (A) Negative Final Urobilinogen, Urine Date Value Ref Range Status 03/16/2016 normal Normal (<1.1) EU Final Nitrites Date Value Ref Range Status 08/06/2024 Negative Negative Final WBC, Urine Date Value Ref Range Status 08/06/2024 >25 /HPF (A) 0-5 /HPF Final Urine Culture: No results found for: URCUL RADIOLOGY: Assessment and Plan Problem List Sepsis (HCC) (POA: Yes) DM type 2 (diabetes mellitus, type 2) (HCC) (POA: Yes) Essential hypertension, benign (POA: Yes) Hyperlipidemia (POA: Yes) OA (osteoarthritis) (POA: Yes) CAD (coronary artery disease) (POA: Yes) Urinary, incontinence, stress female (POA: Yes) UTI (urinary tract infection) (POA: Yes) Renal calculus (POA: Yes) Hypomagnesemia (POA: Yes) Leukocytosis (POA: Yes) Lactic acidosis (POA: Yes) Elevated troponin (POA: Yes) Left ureteral stone (POA: Status not on file) ASSESSMENT: 84 year old female with left ureteral calc s/p left ureteral stent insertion PLAN: - POD1 L ureteral stent insertion and yan insertion - Void trial this am as patient is hemodynamically stable - Will need outpatient follow up for definitive treatment of stone - WBC 12(17), improving - Cr 0.8, stable - IV abx per primary, ceftriaxone - Ucx/bcx in process - Recommend course of abx on discharge - Urology to sign off, page or call with questions or concerns Sheila Holden MD Urology PGY-4 Pager #[phone] 08/07/2024 6:47 AM [facility] 08-06-2024 Note HNO ID: [id number] Author: ADITI ADAM RN Service: ? Author Type: Registered Nurse Type: Nursing Progress Note Filed: 08/06/2024 20:51 Note Text: Altercare of [facility]/Memory care unit [facility] 02-01-2024 History of Presen t illness Narrative Images from the original note were not included. [address] [id number] Visit type: Established Patient Reason for Visit: Medicare Annual Wellness Visit Subsequent, Health Maintenance (Dexa- declines /Zoster- declines /Tdap- declines /Pna- declines /Covid- not done ), and Blood Work Assessment and Plan 1. Medicare annual wellness visit, subsequent - Encouraged a healthy diet low in cholesterol and saturated fats. - Encouraged regular exercise. 2. Type 2 diabetes mellitus without complication, without long-term current use of insulin ([facility] ([facility] Diabetes Foot Exam - Comprehensive metabolic panel - Hemoglobin A1c - Encouraged a diet low in carbohydrates and sugar. Discussed increasing Metformin to 1,000 mg twice a day. 3. Diabetic polyneuropathy associated with diabetes mellitus due to underlying condition ([facility]) ([facility]) [facility] Diabetes Foot Exam - Comprehensive metabolic panel - Hemoglobin A1c - Encouraged a diet low in carbohydrates and sugar. Discussed increasing Metformin to 1,000 mg twice a day. 4. Encounter for diabetic foot exam ([facility]) [facility] Diabetes Foot Exam 5. Atherosclerosis of coronary artery of [place] heart without angina pectoris, unspecified vessel or lesion type - metoprolol succinate XL (Toprol-XL) 25 MG 24 hr tablet; Take 0.5 tablets (12.5 mg) by mouth daily. Do not crush or chew., Starting Sun02/01/2024, No Print - Comprehensive metabolic panel - Declines a statin. Strive for a diet low in cholesterol and saturated fats. Continue Metoprolol as prescribed. 6. Essential hypertension, benign - metoprolol succinate XL (Toprol-XL) 25 MG 24 hr tablet; Take 0.5 tablets (12.5 mg) by mouth daily. Do not crush or chew., Starting Sun02/01/2024, No Print - Comprehensive metabolic panel - Stable with Enalapril and Metoprolol. Will continue current treatment plan. 7. Mixed hyperlipidemia - Comprehensive metabolic panel - Lipid panel - Declines a statin. Strive for a diet low in cholesterol and saturated fats. 8. Statin declined 9. Mixed Alzheimer's and vascular dementia (HCC) - Comprehensive metabolic panel - CBC - Progressing. Follow up with specialist as directed. 10. Osteoarthritis, unspecified osteoarthritis type, unspecified site - Comprehensive metabolic panel - CBC - Stable with PRN Tramadol. Will continue current treatment plan. 11. Chronic pain of both feet - Comprehensive metabolic panel - Stable with PRN Tramadol. Will continue current treatment plan. 12. Mild episode of recurrent major depressive disorder (HCC) - Comprehensive metabolic panel - Progressing. Declines medication adjustments at this time. Continue Cymbalta as prescribed. Discussed signs and symptoms warranting immediate attention- verbalized understanding. 13. Recurrent UTI - Comprehensive metabolic panel - POCT Urinalysis dipstick - Urine culture (clean catch) - UA positive for leukocytes and blood. Will send urine for culture and start on antibiotic. 14. Mixed stress and urge urinary incontinence - Comprehensive metabolic panel - Stable. Continue use of depends. 15. Overactive bladder - Comprehensive metabolic panel - Stable. Continue use of depends. 16. Urinary frequency - Comprehensive metabolic panel - CBC - POCT Urinalysis dipstick - Continue use of depends. Will treat for current signs of UTI. 17. Screening for deficiency anemia - CBC - Will notify of blood work results. Follow up in about 3 months (around 05/03/2024) for diabetes management. Marek HPI- Cj presents today with her daughter for her annual Medicare physical and blood work. Diabetes Mellitus Type II: Most recent hemoglobin A1c was 8.3% on 11/09/23. Known diabetic complications: peripheral neuropathy and cardiovascular disease Cardiovascular risk factors: advanced age (older than 55 for men, 65 for women), diabetes mellitus, dyslipidemia, and hypertension Current diabetic medications include Metformin- 500 mg in the AM and 1,000 mg in the PM and Januvia . Eye exam current (within one year): unknown Dental exam current (within one year): unknown Weight trend: stable Current diet: in general, an unhealthy diet- eats a lot so sugary foods Current exercise: active throughout the day Current monitoring regimen: home blood tests - several times weekly Home blood sugar records: 250's. Interested in getting set up with a continuous glucose monitor due to difficulty with poking her fingers and her memory concerns with her Alzheimer's Any episodes of hypoglycemia? No Is She on LORENE inhibitor or angiotensin II receptor elizabeth? Yes enalapril (Vasotec)- blood pressure is stable today at 108/64 Currently on statin therapy? No - refuses to take statin- adamantly against taking it Last urine microalbumin was 3.2 mg/L on 11/09/23. Last foot exam was 01/29/23. Will do today. Mixed Alzheimer's: Has concerns regarding worsening symptoms and decline in cognition. Daughter, Guerita, expresses concerns with notable reduction in memory- forgetting what she did an hour ago, more violent behaviors, more anxiety, and more hallucinations. Has followed up with geriatrics on 07/26/23 and was told to follow up again in 1 year. Will have random exacerbations of disorientation and hives and will do a cocktail of Pepcid, Prednisone, Imodium, and a Benadryl and this manages her symptoms. Is currently working with home therapy. OA/Chronic Pain of Both Feet: Continues to use Tramadol as needed and this works well for her. CSA signed in November 2023. Depression: Takes Cymbalta as prescribed. Daughter feels depression has not been as well controlled but Cj feels she is doing well overall. Urinary Incontinence: Has followed up with a specialist and was told she does not qualify for any more surgical corrections. Did not want to have a nerve stimulator. Will wear a depends and this helps. Has been struggling with recurrent infections with this. Would like another UA checked today due to the issues with recurrent UTI's. Was most recently treated with Bactrim for 5 days on 01/16/24. Have discussed maintenance therapy with a daily antibiotic for prevention but does not want to do this. Health Maintenance: Declines a DEXA scan for osteoporosis screening. Declines a COVID-19 vaccination. Declines a shingles vaccination. Declines to be vaccinated for Hep B. Declines a Tdap vaccination. Declines a pneumococcal vaccination. Declines to be vaccinated for RSV. Declines a flu vaccination. I have reviewed and reconciled the medication list with the patient today. Current Outpatient Medications Medication Sig Dispense Refill acetaminophen (Tylenol) 500 MG tablet Take 500 mg by mouth in the morning and 500 mg before bedtime. aspirin 325 MG tablet Take 325 mg by mouth in the morning. Cholecalciferol (Vitamin D3) 125 MCG (5000 UT) tablet dispersible Take 125 mcg by mouth daily. DULoxetine HCl 30 MG Capsule Delayed Release Sprinkle Take 60 mg by mouth daily. 180 capsule 1 enalapril (Vasotec) 10 MG tablet TAKE ONE-HALF (1/2) TABLET DAILY 45 tablet 3 famotidine (Pepcid) 20 MG tablet TAKE 1 TABLET DAILY 90 tablet 1 Glucose Blood (Blood Glucose Test) strip Test two times a day & as needed for symptoms of irregular blood glucose. 200 strip 2 Januvia 100 MG tablet TAKE 1 TABLET DAILY 90 tablet 3 loratadine (Claritin) 10 MG tablet TAKE 1 TABLET DAILY 90 tablet 1 metFORMIN XR (Glucophage-XR) 500 MG 24 hr tablet TAKE 1 TABLET THREE TIMES A DAY 270 tablet 0 predniSONE (Deltasone) 20 MG tablet Take 1 tablet by mouth once daily as needed for hives. 10 tablet 0 traMADol (Ultram) 50 MG tablet Take 1 tablet (50 mg) by mouth every 8 hours as needed for severe pain (7-10). 90 tablet 0 metoprolol succinate XL (Toprol-XL) 25 MG 24 hr tablet Take 0.5 tablets (12.5 mg) by mouth daily. Do not crush or chew. No current facility-administered medications for this visit. Medications Discontinued During This Encounter Medication Reason rosuvastatin (Crestor) 10 MG tablet Non-compliance metoprolol succinate XL (Toprol-XL) 25 MG 24 hr tablet Reorder List of current healthcare providers: Patient Care Team: Carlos Herron MD as PCP - General (Family Medicine) The following health maintenance schedule was reviewed with the patient and provided in printed form in the after visit summary: Health Maintenance Topic Date Due RSV Immunization for Adults (1 - 1-dose 75+ series) 03/14/2024 (Originally 2015) DTaP/Tdap/Td Vaccines (1 - Tdap) 01/31/2025 (Originally 04/03/2007) Pneumococcal Vaccine: 65+ Years (2 of 2 - PCV) 01/31/2025 (Originally 01/01/2021) Zoster Vaccines (1 of 2) 01/31/2025 (Originally 1990) Bone Density Scan 01/31/2025 (Originally 1940) COVID-19 Vaccine ( - season) 2025 (Originally 12/02/2023) Depression Monitoring 07/31/2024 Medicare Advantage Annual Wellness Visit Completed RSV Immunization under 20 Months Aged Out HIB Vaccines Aged Out Hepatitis B Vaccines Aged Out IPV Vaccines Aged Out Hepatitis A Vaccines Aged Out Meningococcal Vaccine Aged Out Rotavirus Vaccines Aged Out HPV Vaccines Aged Out Influenza Vaccine Discontinued Orders Placed This Encounter Procedures Urine culture (clean catch) Standing Status: Future Number of Occurrences: 1 Standing Expiration Date: 01/31/2025 Comprehensive metabolic panel Standing Status: Future Number of Occurrences: 1 Standing Expiration Date: 01/31/2025 Lipid panel Standing Status: Future Number of Occurrences: 1 Standing Expiration Date: 01/31/2025 CBC Standing Status: Future Number of Occurrences: 1 Standing Expiration Date: 01/31/2025 Hemoglobin A1c Standing Status: Future Number of Occurrences: 1 Standing Expiration Date: 01/31/2025 POCT Urinalysis dipstick Hm Diabetes Foot Exam Health Risk Assessment: General In general, how would you say your health is?: Good In the past 7 days, have you experienced any of the following: New or Increased Pain, New or Increased Fatigue, Loneliness, Social Isolation, Stress or Anger?: No Do you get the social and emotional suppport you need?: Yes Interventions: N/A Health Habits / Nutrition On average, how many days per week do you engage in moderate to strenous exercise (like a brisk walk)?: 7 days On average, how man minutes do you engage in exercise at this level?: 60 min Have you lost any weight without trying in the past 3 months? : No Have you seen the dentist within the past year?: Yes Interventions: N/A Hearing / Vision Do you or your family notice any trouble with your hearing that hasn't been managed with hearing aids?: (!) Yes (sometimes) Do you have difficulty driving, watching TV, or doing any of your daily activities because of your eyesight?: No Have you had an eye exam within the past year?: Yes No results found. Interventions: Hearing concerns: Patient declines any further evaluation / treatment for hearing issues Safety Do you have a working smoke detector?: Yes Do you have any tripping hazards - loose or unsecured carpets or rugs?: No Do you have any tripping hazards - clutter in doorways, halls, or stairs?: No Do you have either shower bars, grab bars, non-slip mats or non-slip surfaces in your shower or bathtub? : Yes Do all your stairways have a railing or banister? : Yes Do you fasten your seatbelt when you are in a car?: Yes Interventions: Home safety tips provided ADL In the past 7 days, did you need help from others to perform any of the following everyday activities: Eating, dressing, grooming,bathing, toileting, or walking / balance? : No In the past 7 days, did you need help from others to take care of any of the following: laundry, housekeeping, banking / finances,shopping, telephone use, food preparation, transportation, or taking medications? : Yes Select all that apply: Transportation, Shopping, Housekeeping, Food Preparation, Laundry, Banking / Finances, Telephone Use, Taking Medications Interventions: Family assists. Living Will Do you have a living will?: No (In the process of doing a POA) Interventions: Working on getting this completed. Cognitive: Cognitive Screening: Mini-Cog Clock Drawing Test (CDT): (Unable to assess.)Unable to assess due to cognitive status. Interventions: N/A Fall Risk: 02/01/2024 0900 Last Filed Value Fall Risk One or more falls in the last year: Yes Yes Advised to use a cane or walker to get around safely: No No Feels unsteady when walking: No No Steadies self on furniture while walking at home: Yes Yes Worried about falling: No Interventions: Home safety tips provided Depression Screening: Over the past 2 weeks, how often have you been bothered by any of the following problems? Little interest or pleasure in doing things: Not at all Feeling down, depressed, or hopeless: Not at all Patient Health Questionnaire-2 Score: 0 Interventions: See HPI Tobacco Use: Social History Tobacco Use Smoking Status Never Smokeless Tobacco Never Interventions: N/A Alcohol Use: Interventions: N/A Drug Use: Interventions: N/A Review of Systems Constitutional: Negative for chills and fever. HENT: Positive for hearing loss. Negative for trouble swallowing. Eyes: Negative for pain and visual disturbance. Respiratory: Negative for cough, chest tightness, shortness of breath and wheezing. Cardiovascular: Negative for chest pain, palpitations and leg swelling. Gastrointestinal: Negative for abdominal distention, abdominal pain, blood in stool, constipation and diarrhea. Endocrine: Negative for polydipsia, polyphagia and polyuria. Genitourinary: Positive for difficulty urinating, frequency and urgency. Musculoskeletal: Positive for arthralgias. Skin: Negative for color change, pallor, rash and wound. Neurological: Negative for syncope. Hematological: Does not bruise/bleed easily. Psychiatric/Behavioral: Positive for behavioral problems and confusion. Negative for self-injury. Immunization History Administered Date(s) Administered Influenza, High-dose Seasonal, Quadrivalent, Preservative Free 01/02/2020 Pneumococcal Polysaccharide PPSV23 01/02/2020 TD (adult), 2 Lf tetanus toxoid, preservative free, adsorbed 04/02/2007 Allergies Allergen Reactions Hydrocodone-Acetaminophen Celecoxib PALPITATIONS Morphine Other Rofecoxib PALPITATIO;NS Statins Other Other reaction(s): Other: See Comments Suspects lipitor decreases her hearing loss and tinnitus and liver spots. Outpatient Medications Prior to Visit Medication Sig Dispense Refill acetaminophen (Tylenol) 500 MG tablet Take 500 mg by mouth in the morning and 500 mg before bedtime. aspirin 325 MG tablet Take 325 mg by mouth in the morning. Cholecalciferol (Vitamin D3) 125 MCG (5000 UT) tablet dispersible Take 125 mcg by mouth daily. DULoxetine HCl 30 MG Capsule Delayed Release Sprinkle Take 60 mg by mouth daily. 180 capsule 1 enalapril (Vasotec) 10 MG tablet TAKE ONE-HALF (1/2) TABLET DAILY 45 tablet 3 famotidine (Pepcid) 20 MG tablet TAKE 1 TABLET DAILY 90 tablet 1 Glucose Blood (Blood Glucose Test) strip Test two times a day & as needed for symptoms of irregular blood glucose. 200 strip 2 Januvia 100 MG tablet TAKE 1 TABLET DAILY 90 tablet 3 loratadine (Claritin) 10 MG tablet TAKE 1 TABLET DAILY 90 tablet 1 metFORMIN XR (Glucophage-XR) 500 MG 24 hr tablet TAKE 1 TABLET THREE TIMES A DAY 270 tablet 0 predniSONE (Deltasone) 20 MG tablet Take 1 tablet by mouth once daily as needed for hives. 10 tablet 0 traMADol (Ultram) 50 MG tablet Take 1 tablet (50 mg) by mouth every 8 hours as needed for severe pain (7-10). 90 tablet 0 metoprolol succinate XL (Toprol-XL) 25 MG 24 hr tablet TAKE 1 TABLET DAILY (DO NOT CRUSH OR CHEW) 90 tablet 3 rosuvastatin (Crestor) 10 MG tablet Take 1 tablet (10 mg) by mouth daily. (Patient not taking: Reported on 02/01/2024) 30 tablet 0 No facility-administered medications prior to visit. 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 TB (pulmonary tuberculosis) 1958 Social History Socioeconomic History Marital status: Tobacco Use Smoking status: Never Smokeless tobacco: Never Vaping Use Vaping status: Never Used Substance and Sexual Activity Alcohol use: No Drug use: No Sexual activity: Defer Social Drivers of Health Financial Resource Strain: Low Risk (01/29/2023) Overall Financial Resource Strain (CARDIA) Difficulty of Paying Living Expenses: Not hard at all Food Insecurity: No Food Insecurity (01/29/2023) Hunger Vital Sign Worried About Running Out of Food in the Last Year: Never true Ran Out of Food in the Last Year: Never true Transportation Needs: No Transportation Needs (01/29/2023) PRAPARE - Transportation Lack of Transportation (Medical): No Lack of Transportation (Non-Medical): No Physical Activity: Sufficiently Active (01/29/2023) Exercise Vital Sign Days of Exercise per Week: 7 days Minutes of Exercise per Session: 60 min Stress: No Stress Concern Present (01/29/2023) [employer] [place] [employer] - Occupational Stress Questionnaire Feeling of Stress : Only a little Social Connections: Socially Integrated (01/29/2023) Social Connection and Isolation Panel [NHANES] Frequency of Communication with Friends and Family: More than three times a week Frequency of Social Gatherings with Friends and Family: More than three times a week Attends Worship Services: More than 4 times per year Active Member of Clubs or Organizations: Yes Attends Club or Organization Meetings: More than 4 times per year Marital Status: Intimate Partner Violence: Not At Risk (01/29/2023) Humiliation, Afraid, Rape, and Kick questionnaire Fear of Current or Ex-Partner: No Emotionally Abused: No Physically Abused: No Sexually Abused: No Housing Stability: Low Risk (01/29/2023) Housing Stability Vital Sign Unable to Pay for Housing in the Last Year: No Number of Places Lived in the Last Year: 1 Unstable Housing in the Last Year: No Past Surgical History: Procedure Laterality Date BLADDER SUSPENSION 1999 BLADDER SUSPENSION 2016 05, CHOLECYSTECTOMY KNEE ARTHROPLASTY Bilateral 1999 TOTAL ABDOMINAL HYSTERECTOMY Past Surgical History: Procedure Laterality Date BLADDER SUSPENSION 1999 BLADDER SUSPENSION 2016 05, CHOLECYSTECTOMY KNEE ARTHROPLASTY Bilateral 2000 TOTAL ABDOMINAL HYSTERECTOMY Family History Problem Relation Name Age of Onset Lung cancer Mother Depression Mother High Blood Pressure Father Hyperlipidemia Father High Blood Pressure Mother Hearing loss Father Heart attack Father Heart disease Father Coronary artery disease Father Objective BP 108/64 Pulse 78 Ht 5' 2.75 (1.594 m) Wt 128 lb 4.8 oz (58.2 kg) SpO2 98% BMI 22.91 kg/m Physical Exam Constitutional: General: Not in acute distress. Appearance: Not ill-appearing or diaphoretic. HENT: Head: Normocephalic and atraumatic. Right Ear: Tympanic membrane, ear canal and external ear normal. Left Ear: Tympanic membrane, ear canal and external ear normal. Nose: Nose normal. No congestion or rhinorrhea. Mouth/Throat: Mouth: Mucous membranes are moist. Pharynx: Oropharynx is clear. No oropharyngeal exudate or posterior oropharyngeal erythema. Eyes: General: No scleral icterus. Extraocular Movements: Extraocular movements intact. Pupils: Pupils are equal, round, and reactive to light. Neck: Thyroid: No thyroid mass or thyromegaly. Vascular: No carotid bruit. Cardiovascular: Rate and Rhythm: Normal rate and regular rhythm. Pulses: Normal pulses. Heart sounds: Normal heart sounds. No murmur heard. No friction rub. Pulmonary: Effort: Pulmonary effort is normal. Breath sounds: Normal breath sounds. No wheezing, rhonchi or rales. Abdominal: General: Bowel sounds are normal. Palpations: Abdomen is soft. There is no hepatomegaly, splenomegaly or mass. Tenderness: There is no abdominal tenderness. Musculoskeletal: General: Bony deformities noted to both feet. Normal range of motion. Cervical back: Normal range of motion and neck supple. Right lower leg: No edema. Left lower leg: No edema. Lymphadenopathy: Cervical: No cervical adenopathy. Skin: General: Skin is warm and dry. Coloration: Skin is not jaundiced or pale. Findings: No erythema. Diabetic foot check: Normal strength and range of motion of toes, feet, and ankles bilaterally. No joint deformity. No cyanosis or clubbing. 100% sensation with 10 gram filament. Dorsalis pedis pulses intact bilaterally. Capillary refill at the toes was less than 2 seconds. Light touch sensation intact bilaterally. Hair growth present on feet and toes bilaterally. No skin breakdown, erythema, rub spots, blisters, scaling, or ulcers. No calluses or corns. Toenails thin and not ingrown. No evidence of fungal infection. Neurological: Mental Status: Alert and oriented to person, place, and time. Motor: No weakness. Gait: Gait normal. Psychiatric: Mood and Affect: Mood normal. Behavior: Behavior normal. Cognition and Memory: Memory is impaired. She exhibits impaired recent memory. Comments: Repetitive in conversation Data Reviewed Labs: Imaging/Testing: CHONG Ballesteros CNP 02/01/2024 10:44 AM Patient verified by last name and . documented in this encounter [facility] 01-31-2024 Telephone encounter Note Agree, thank you [facility] 01-31-2024 Miscellaneous Notes Agree, thank you Spoke to Guerita, she will actually be in with Faby for an appointment tomorrow morning with Rubina, will have urine tested then. Yes, I think a urinalysis would be in line, if she cannot get it she can have her daughter collect it and bring it here if she can be here before 4:00. Would recommend that she stop and picker and packer a sterile container. Ashwini from [facility] called stating she saw faby today who complained of dysuria and worse leakage than normal so she is not wanting to drink anything due to this. Ashwini advised her not to do that. States Faby was very repetitive today, more so than normal. Asking if we want any urine testing done? She is not able to send out a sample today but could do it tomorrow unless Faby's daughter can get us a sample today, Ashwini is calling her next. documented in this encounter [facility] 01-31-2024 Telephone encounter Note Spoke to Guerita, she will actually be in with Faby for an appointment tomorrow morning with Rubina, will have urine tested then. [facility] 01-31-2024 Telephone encounter Note Yes, I think a urinalysis would be in line, if she cannot get it she can have her daughter collect it and bring it here if she can be here before 4:00. Would recommend that she stop and picker and packer a sterile container. [facility] 01-31-2024 Telephone encounter Note Ashwini from [facility] called stating she saw faby today who complained of dysuria and worse leakage than normal so she is not wanting to drink anything due to this. Ashwini advised her not to do that. States Faby was very repetitive today, more so than normal. Asking if we want any urine testing done? She is not able to send out a sample today but could do it tomorrow unless Faby's daughter can get us a sample today, Ashwini is calling her next. [facility] 01-28-2024 Telephone encounter Note Prescription Request: Last medication check: 11/09/23 Last physical exam: 01/29/23 Next scheduled appointment: 02/01/24 Last date of refill on this medication 06/11/23 90 and 1 refill [facility] 01-28-2024 Miscellaneous Notes Prescription Request: Last medication check: 11/09/23 Last physical exam: 01/29/23 Next scheduled appointment: 02/01/24 Last date of refill on this medication 06/11/23 90 and 1 refill documented in this encounter [facility] 01-10-2024 Note Addended by: RUBINA MOORE on: 01/10/2024 12:27 PM Modules accepted: Orders [facility] 01-10-2024 Telephone encounter Note Prescription Request: Last medication check: 11/09/23 Last physical exam: 01/29/23 Next scheduled appointment: 02/01/24 Last date of refill on this medication 07/11/23 90 day 1 refill [facility] 01-10-2024 Miscellaneous Notes Prescription Request: Last medication check: 11/09/23 Last physical exam: 01/29/23 Next scheduled appointment: 02/01/24 Last date of refill on this medication 07/11/23 90 day 1 refill documented in this encounter [facility] 01-01-2024 Telephone encounter Note Prescription Request: Last medication check: 11/09/23 Last physical exam: 01/29/23 Next scheduled appointment:02/01/24 Last date of refill on this medication 07/05/23 [facility] 01-01-2024 Miscellaneous Notes Prescription Request: Last medication check: 11/09/23 Last physical exam: 01/29/23 Next scheduled appointment:02/01/24 Last date of refill on this medication 07/05/23 documented in this encounter [facility] 11-09-2023 History of Presen t illness Narrative Images from the original note were not included. Patient Cj Gillis 83 y.o. female, presents today with Chief Complaint Patient presents with Medication Check Hypertension Hyperlipidemia Anxiety . HPI- Cj Gillis presents today for follow up on her diabetes and other chronic health conditions. Previous hemoglobin A1c was 7.6% on 01/29/23. Diabetes Mellitus Type II: Known diabetic complications: peripheral neuropathy and cardiovascular disease Cardiovascular risk factors: advanced age (older than 55 for men, 65 for women), diabetes mellitus, dyslipidemia, and hypertension Current diabetic medications include Metformin, Januvia . Eye exam current (within one year): unknown Dental exam current (within one year): unknown Weight trend: stable Current diet: in general, an unhealthy diet Current exercise: active throughout the day Current monitoring regimen: home blood tests - several times weekly Home blood sugar records: 150-250 Any episodes of hypoglycemia? No Is She on LORENE inhibitor or angiotensin II receptor elizabeth? Yes enalapril (Vasotec)- blood pressure is stable today at 102/68 Currently on statin therapy? Yes - Rosuvastatin Last urine microalbumin was 7.2 mg/L on 01/26/21- had an order placed for repeat testing in December 2022 but did not get this done. Will try again today. Last foot exam was 01/29/23. 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 Will have random exacerbations of disorientation and hives and will do a cocktail of Pepcid, Prednisone, Imodium, and a Benadryl and this manages her symptoms. OA/Chronic Pain of Both Feet: Continues to use Tramadol as needed and this works well for her. Will have her sign a new CSA today. Depression: Takes Cymbalta as prescribed. Feels symptoms are stable. Urinary Incontinence: Has followed up with a specialist and was told she does not qualify for any more surgical corrections. Did not want to have a nerve stimulator. Will wear a depends and this helps. Can get recurrent infections with this. Symptoms stable currently. Health Maintenance: Declines a DEXA scan for osteoporosis screening. Declines a COVID-19 vaccination. Declines a shingles vaccination. Declines to be vaccinated for Hep B. Declines a Tdap vaccination. Declines a pneumococcal vaccination. Declines to be vaccinated for RSV. 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 TB (pulmonary tuberculosis) 1958 Past Surgical History: Procedure Laterality Date BLADDER SUSPENSION 1999 BLADDER SUSPENSION 2017 2nd, CHOLECYSTECTOMY KNEE ARTHROPLASTY Bilateral 2000 TOTAL ABDOMINAL HYSTERECTOMY Family History Problem Relation Name Age of Onset Lung cancer Mother Depression Mother High Blood Pressure Father Hyperlipidemia Father High Blood Pressure Mother Hearing loss Father Heart attack Father Heart disease Father Coronary artery disease Father Social History Socioeconomic History Marital status: Spouse name: Not on file Number of children: Not on file Years of education: Not on file Highest education level: Not on file Occupational History Not on file Tobacco Use Smoking status: Never Smokeless tobacco: Never Vaping Use Vaping status: Never Used Substance and Sexual Activity Alcohol use: No Drug use: No Sexual activity: Defer Other Topics Concern Not on file Social History Narrative Not on file Social Determinants of Health Financial Resource Strain: Low Risk (01/29/2023) Overall Financial Resource Strain (CARDIA) Difficulty of Paying Living Expenses: Not hard at all Food Insecurity: No Food Insecurity (01/29/2023) Hunger Vital Sign Worried About Running Out of Food in the Last Year: Never true Ran Out of Food in the Last Year: Never true Transportation Needs: No Transportation Needs (01/29/2023) PRAPARE - Transportation Lack of Transportation (Medical): No Lack of Transportation (Non-Medical): No Physical Activity: Sufficiently Active (01/29/2023) Exercise Vital Sign Days of Exercise per Week: 7 days Minutes of Exercise per Session: 60 min Stress: No Stress Concern Present (01/29/2023) [employer] [place] [employer] - Occupational Stress Questionnaire Feeling of Stress : Only a little Social Connections: Socially Integrated (01/29/2023) Social Connection and Isolation Panel [NHANES] Frequency of Communication with Friends and Family: More than three times a week Frequency of Social Gatherings with Friends and Family: More than three times a week Attends Worship Services: More than 4 times per year Active Member of Clubs or Organizations: Yes Attends Club or Organization Meetings: More than 4 times per year Marital Status: Intimate Partner Violence: Not At Risk (01/29/2023) Humiliation, Afraid, Rape, and Kick questionnaire Fear of Current or Ex-Partner: No Emotionally Abused: No Physically Abused: No Sexually Abused: No Housing Stability: Low Risk (01/29/2023) Housing Stability Vital Sign Unable to Pay for Housing in the Last Year: No Number of Places Lived in the Last Year: 1 Unstable Housing in the Last Year: No Health Maintenance Topic Date Due Medicare Advantage Annual Wellness Visit 04/02/2023 DTaP/Tdap/Td Vaccines (1 - Tdap) 01/30/2024 (Originally 04/03/2007) Pneumococcal Vaccine: 65+ Years (2 of 2 - PCV) 01/30/2024 (Originally 01/01/2021) Zoster Vaccines (1 of 2) 01/30/2024 (Originally 1990) Bone Density Scan 01/30/2024 (Originally 1940) COVID-19 Vaccine (1 - 2022-24 season) 2024 (Originally 12/01/2022) RSV Immunization aged 60 or older (1 - 1-dose 60+ series) 03/14/2024 (Originally 2000) Depression Monitoring 01/25/2024 RSV Immunization under 20 Months Aged Out HIB Vaccines Aged Out Hepatitis B Vaccines Aged Out IPV Vaccines Aged Out Hepatitis A Vaccines Aged Out Meningococcal Vaccine Aged Out Rotavirus Vaccines Aged Out HPV Vaccines Aged Out Influenza Vaccine Discontinued Allergies Allergen Reactions Hydrocodone-Acetaminophen Celecoxib PALPITATIONS Morphine Other Rofecoxib PALPITATIO;NS Statins Other Other reaction(s): Other: See Comments Suspects lipitor decreases her hearing loss and tinnitus and liver spots. Review of Systems Constitutional: Negative for chills and fever. Respiratory: Negative for chest tightness and shortness of breath. Cardiovascular: Negative for chest pain, palpitations and leg swelling. Gastrointestinal: Negative for abdominal distention, abdominal pain, blood in stool, constipation and diarrhea. Genitourinary: Positive for frequency. Negative for hematuria. Musculoskeletal: Positive for arthralgias. Skin: Negative for color change, pallor, rash and wound. Neurological: Negative for dizziness. Psychiatric/Behavioral: Positive for confusion. BP 102/68 Pulse 74 Ht 5' 2.75 (1.594 m) Wt 128 lb 9.6 oz (58.3 kg) SpO2 95% BMI 22.96 kg/m Physical Exam Constitutional: General: She is not in acute distress. Appearance: Normal appearance. She is not ill-appearing or diaphoretic. HENT: Head: Normocephalic and atraumatic. Cardiovascular: Rate and Rhythm: Normal rate and regular rhythm. Pulses: Normal pulses. Heart sounds: Normal heart sounds. No murmur heard. No friction rub. Pulmonary: Effort: Pulmonary effort is normal. Breath sounds: Normal breath sounds. No wheezing, rhonchi or rales. Abdominal: General: Bowel sounds are normal. Palpations: Abdomen is soft. There is no hepatomegaly, splenomegaly or mass. Tenderness: There is no abdominal tenderness. There is no guarding or rebound. Musculoskeletal: Right lower leg: No edema. Left lower leg: No edema. Skin: General: Skin is warm and dry. Coloration: Skin is not pale. Findings: No erythema or rash. Comments: Diabetic foot check: Normal strength and range of motion of toes, feet, and ankles bilaterally. Joint deformities noted in both feet. No cyanosis or clubbing. 100% sensation with 10 gram filament. Dorsalis pedis pulses intact bilaterally. Capillary refill at the toes was less than 2 seconds. Light touch sensation intact bilaterally. Hair growth present on feet and toes bilaterally. No skin breakdown, erythema, rub spots, blisters, scaling, or ulcers. No calluses or corns. Toenails thin and not ingrown. No evidence of fungal infection. Neurological: Mental Status: She is alert. Mental status is at baseline. Assessment and Plan: 1. Type 2 diabetes mellitus without complication, without long-term current use of insulin ([facility]) ([facility]) - Microalbumin / creatinine urine ratio - Diabetes Foot Exam - AMB POC HEMOGLOBIN A1C - Hemoglobin A1c was 8.3% today. Will increase Metformin to 1,000 mg twice a day. Continue current dose of Januvia. 2. Diabetic polyneuropathy associated with diabetes mellitus due to underlying condition ([facility]) ([facility]) - Microalbumin / creatinine urine ratio - Diabetes Foot Exam - AMB POC HEMOGLOBIN A1C - Hemoglobin A1c was 8.3% today. Will increase Metformin to 1,000 mg twice a day. Continue current dose of Januvia. 3. Encounter for diabetic foot exam ([facility]) - Diabetes Foot Exam 4. Mixed Alzheimer's and vascular dementia ([facility]) - Stable. Follow up with specialist as directed. 5. Osteoarthritis, unspecified osteoarthritis type, unspecified site - Stable with PRN Tramadol. Will continue current treatment plan. - OARRS report reviewed with no discrepancies. CSA signed today. 6. Chronic pain of both feet - Stable with PRN Tramadol. Will continue current treatment plan. - OARRS report reviewed with no discrepancies. CSA signed today. 7. Mild episode of recurrent major depressive disorder (HCC) - Stable with Cymbalta. Will continue current treatment plan. 8. Mixed stress and urge urinary incontinence - Stable with depends. Will continue current plan. 9. Overactive bladder - Stable with depends. Will continue current plan. Discussed use, benefit, and side effects of prescribed medications. Barriers to medication compliance addressed. All patient questions answered. Pt voiced understanding. Follow up in 12 weeks (on 02/01/2024) for Next scheduled follow-up. Outpatient Encounter Medications as of 11/09/2023 Medication Sig Dispense Refill acetaminophen (Tylenol) 500 MG tablet Take 500 mg by mouth in the morning and 500 mg before bedtime. aspirin 325 MG tablet Take 325 mg by mouth in the morning. Cholecalciferol (Vitamin D3) 125 MCG (5000 UT) tablet dispersible Take 125 mcg by mouth daily. DULoxetine HCl 30 MG Capsule Delayed Release Sprinkle Take 60 mg by mouth daily. 180 capsule 1 enalapril (Vasotec) 10 MG tablet Take 0.5 tablets (5 mg) by mouth daily. 45 tablet 1 famotidine (Pepcid) 20 MG tablet TAKE 1 TABLET DAILY 90 tablet 1 Glucose Blood (Blood Glucose Test) strip Test two times a day & as needed for symptoms of irregular blood glucose. 200 strip 2 Januvia 100 MG tablet TAKE 1 TABLET DAILY 90 tablet 3 loratadine (Claritin) 10 MG tablet TAKE 1 TABLET DAILY 90 tablet 1 metFORMIN XR (Glucophage-XR) 500 MG 24 hr tablet TAKE 1 TABLET THREE TIMES A DAY 270 tablet 1 metoprolol succinate XL (Toprol-XL) 25 MG 24 hr tablet Take 1 tablet (25 mg) by mouth daily. Do not crush or chew. 90 tablet 1 predniSONE (Deltasone) 20 MG tablet Take 1 tablet by mouth once daily as needed for hives. 10 tablet 0 rosuvastatin (Crestor) 10 MG tablet Take 1 tablet (10 mg) by mouth daily. 30 tablet 0 traMADol (Ultram) 50 MG tablet Take 1 tablet (50 mg) by mouth every 8 hours as needed for severe pain (7-10). 90 tablet 0 [DISCONTINUED] lidocaine (Lidoderm) 5 % patch Apply 1 patch topically daily. Remove & discard patch within 12 hours or as directed by . 9 patch 0 No facility-administered encounter medications on file as of 11/09/2023. CHONG Ballesteros CNP 11/09/2023 11:38 AM documented in this encounter [facility] 11-09-2023 History of Presen t illness Narrative Images from the original note were not included. Patient Cj Gillis 83 y.o. female, presents today with Chief Complaint Patient presents with Medication Check Hypertension Hyperlipidemia Anxiety . HPI- Cj Gillis presents today for follow up on her diabetes and other chronic health conditions. Previous hemoglobin A1c was 7.6% on 01/29/23. Diabetes Mellitus Type II: Known diabetic complications: peripheral neuropathy and cardiovascular disease Cardiovascular risk factors: advanced age (older than 55 for men, 65 for women), diabetes mellitus, dyslipidemia, and hypertension Current diabetic medications include Metformin, Januvia . Eye exam current (within one year): unknown Dental exam current (within one year): unknown Weight trend: stable Current diet: in general, an unhealthy diet Current exercise: active throughout the day Current monitoring regimen: home blood tests - several times weekly Home blood sugar records: 150-250 Any episodes of hypoglycemia? No Is She on LORENE inhibitor or angiotensin II receptor elizabeth? Yes enalapril (Vasotec)- blood pressure is stable today at 102/68 Currently on statin therapy? Yes - Rosuvastatin Last urine microalbumin was 7.2 mg/L on 01/26/21- had an order placed for repeat testing in December 2022 but did not get this done. Will try again today. Last foot exam was 01/29/23. 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 Will have random exacerbations of disorientation and hives and will do a cocktail of Pepcid, Prednisone, Imodium, and a Benadryl and this manages her symptoms. OA/Chronic Pain of Both Feet: Continues to use Tramadol as needed and this works well for her. Will have her sign a new CSA today. Depression: Takes Cymbalta as prescribed. Feels symptoms are stable. Urinary Incontinence: Has followed up with a specialist and was told she does not qualify for any more surgical corrections. Did not want to have a nerve stimulator. Will wear a depends and this helps. Can get recurrent infections with this. Symptoms stable currently. Health Maintenance: Declines a DEXA scan for osteoporosis screening. Declines a COVID-19 vaccination. Declines a shingles vaccination. Declines to be vaccinated for Hep B. Declines a Tdap vaccination. Declines a pneumococcal vaccination. Declines to be vaccinated for RSV. 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 TB (pulmonary tuberculosis) 195 Past Surgical History: Procedure Laterality Date BLADDER SUSPENSION 1999 BLADDER SUSPENSION 2017 2nd, CHOLECYSTECTOMY KNEE ARTHROPLASTY Bilateral 2000 TOTAL ABDOMINAL HYSTERECTOMY Family History Problem Relation Name Age of Onset Lung cancer Mother Depression Mother High Blood Pressure Father Hyperlipidemia Father High Blood Pressure Mother Hearing loss Father Heart attack Father Heart disease Father Coronary artery disease Father Social History Socioeconomic History Marital status: Spouse name: Not on file Number of children: Not on file Years of education: Not on file Highest education level: Not on file Occupational History Not on file Tobacco Use Smoking status: Never Smokeless tobacco: Never Vaping Use Vaping status: Never Used Substance and Sexual Activity Alcohol use: No Drug use: No Sexual activity: Defer Other Topics Concern Not on file Social History Narrative Not on file Social Determinants of Health Financial Resource Strain: Low Risk (01/29/2023) Overall Financial Resource Strain (CARDIA) Difficulty of Paying Living Expenses: Not hard at all Food Insecurity: No Food Insecurity (01/29/2023) Hunger Vital Sign Worried About Running Out of Food in the Last Year: Never true Ran Out of Food in the Last Year: Never true Transportation Needs: No Transportation Needs (01/29/2023) PRAPARE - Transportation Lack of Transportation (Medical): No Lack of Transportation (Non-Medical): No Physical Activity: Sufficiently Active (01/29/2023) Exercise Vital Sign Days of Exercise per Week: 7 days Minutes of Exercise per Session: 60 min Stress: No Stress Concern Present (01/29/2023) [employer] [place] [employer] - Occupational Stress Questionnaire Feeling of Stress : Only a little Social Connections: Socially Integrated (01/29/2023) Social Connection and Isolation Panel [NHANES] Frequency of Communication with Friends and Family: More than three times a week Frequency of Social Gatherings with Friends and Family: More than three times a week Attends Worship Services: More than 4 times per year Active Member of Clubs or Organizations: Yes Attends Club or Organization Meetings: More than 4 times per year Marital Status: Intimate Partner Violence: Not At Risk (01/29/2023) Humiliation, Afraid, Rape, and Kick questionnaire Fear of Current or Ex-Partner: No Emotionally Abused: No Physically Abused: No Sexually Abused: No Housing Stability: Low Risk (01/29/2023) Housing Stability Vital Sign Unable to Pay for Housing in the Last Year: No Number of Places Lived in the Last Year: 1 Unstable Housing in the Last Year: No Health Maintenance Topic Date Due Medicare Advantage Annual Wellness Visit 04/02/2023 DTaP/Tdap/Td Vaccines (1 - Tdap) 01/30/2024 (Originally 04/03/2007) Pneumococcal Vaccine: 65+ Years (2 of 2 - PCV) 01/30/2024 (Originally 01/01/2021) Zoster Vaccines (1 of 2) 01/30/2024 (Originally 1990) Bone Density Scan 01/30/2024 (Originally 1940) COVID-19 Vaccine (1 - 2022-24 season) 2024 (Originally 12/01/2022) RSV Immunization aged 60 or older (1 - 1-dose 60+ series) 03/14/2024 (Originally 2000) Depression Monitoring 01/25/2024 RSV Immunization under 20 Months Aged Out HIB Vaccines Aged Out Hepatitis B Vaccines Aged Out IPV Vaccines Aged Out Hepatitis A Vaccines Aged Out Meningococcal Vaccine Aged Out Rotavirus Vaccines Aged Out HPV Vaccines Aged Out Influenza Vaccine Discontinued Allergies Allergen Reactions Hydrocodone-Acetaminophen Celecoxib PALPITATIONS Morphine Other Rofecoxib PALPITATIO;NS Statins Other Other reaction(s): Other: See Comments Suspects lipitor decreases her hearing loss and tinnitus and liver spots. Review of Systems Constitutional: Negative for chills and fever. Respiratory: Negative for chest tightness and shortness of breath. Cardiovascular: Negative for chest pain, palpitations and leg swelling. Gastrointestinal: Negative for abdominal distention, abdominal pain, blood in stool, constipation and diarrhea. Genitourinary: Positive for frequency. Negative for hematuria. Musculoskeletal: Positive for arthralgias. Skin: Negative for color change, pallor, rash and wound. Neurological: Negative for dizziness. Psychiatric/Behavioral: Positive for confusion. BP 102/68 Pulse 74 Ht 5' 2.75 (1.594 m) Wt 128 lb 9.6 oz (58.3 kg) SpO2 95% BMI 22.96 kg/m Physical Exam Constitutional: General: She is not in acute distress. Appearance: Normal appearance. She is not ill-appearing or diaphoretic. HENT: Head: Normocephalic and atraumatic. Cardiovascular: Rate and Rhythm: Normal rate and regular rhythm. Pulses: Normal pulses. Heart sounds: Normal heart sounds. No murmur heard. No friction rub. Pulmonary: Effort: Pulmonary effort is normal. Breath sounds: Normal breath sounds. No wheezing, rhonchi or rales. Abdominal: General: Bowel sounds are normal. Palpations: Abdomen is soft. There is no hepatomegaly, splenomegaly or mass. Tenderness: There is no abdominal tenderness. There is no guarding or rebound. Musculoskeletal: Right lower leg: No edema. Left lower leg: No edema. Skin: General: Skin is warm and dry. Coloration: Skin is not pale. Findings: No erythema or rash. Comments: Diabetic foot check: Normal strength and range of motion of toes, feet, and ankles bilaterally. Joint deformities noted in both feet. No cyanosis or clubbing. 100% sensation with 10 gram filament. Dorsalis pedis pulses intact bilaterally. Capillary refill at the toes was less than 2 seconds. Light touch sensation intact bilaterally. Hair growth present on feet and toes bilaterally. No skin breakdown, erythema, rub spots, blisters, scaling, or ulcers. No calluses or corns. Toenails thin and not ingrown. No evidence of fungal infection. Neurological: Mental Status: She is alert. Mental status is at baseline. Assessment and Plan: 1. Type 2 diabetes mellitus with hyperlipidemia (HCC) ([facility]) - Microalbumin / creatinine urine ratio - Diabetes Foot Exam - AMB POC HEMOGLOBIN A1C - Hemoglobin A1c was 8.3% today. Will increase Metformin to 1,000 mg twice a day. Continue current dose of Januvia. 2. Diabetic polyneuropathy associated with diabetes mellitus due to underlying condition (CMS/HCC) ([facility]) - Microalbumin / creatinine urine ratio - Diabetes Foot Exam - AMB POC HEMOGLOBIN A1C - Hemoglobin A1c was 8.3% today. Will increase Metformin to 1,000 mg twice a day. Continue current dose of Januvia. 3. Encounter for diabetic foot exam ([facility]) - Diabetes Foot Exam 4. Mixed Alzheimer's and vascular dementia (HCC) - Stable. Follow up with specialist as directed. 5. Osteoarthritis, unspecified osteoarthritis type, unspecified site - Stable with PRN Tramadol. Will continue current treatment plan. - OARRS report reviewed with no discrepancies. CSA signed today. 6. Chronic pain of both feet - Stable with PRN Tramadol. Will continue current treatment plan. - OARRS report reviewed with no discrepancies. CSA signed today. 7. Mild episode of recurrent major depressive disorder (HCC) - Stable with Cymbalta. Will continue current treatment plan. 8. Mixed stress and urge urinary incontinence - Stable with depends. Will continue current plan. 9. Overactive bladder - Stable with depends. Will continue current plan. Discussed use, benefit, and side effects of prescribed medications. Barriers to medication compliance addressed. All patient questions answered. Pt voiced understanding. Follow up in 12 weeks (on 02/01/2024) for Next scheduled follow-up. Outpatient Encounter Medications as of 11/09/2023 Medication Sig Dispense Refill acetaminophen (Tylenol) 500 MG tablet Take 500 mg by mouth in the morning and 500 mg before bedtime. aspirin 325 MG tablet Take 325 mg by mouth in the morning. Cholecalciferol (Vitamin D3) 125 MCG (5000 UT) tablet dispersible Take 125 mcg by mouth daily. DULoxetine HCl 30 MG Capsule Delayed Release Sprinkle Take 60 mg by mouth daily. 180 capsule 1 enalapril (Vasotec) 10 MG tablet Take 0.5 tablets (5 mg) by mouth daily. 45 tablet 1 famotidine (Pepcid) 20 MG tablet TAKE 1 TABLET DAILY 90 tablet 1 Glucose Blood (Blood Glucose Test) strip Test two times a day & as needed for symptoms of irregular blood glucose. 200 strip 2 Januvia 100 MG tablet TAKE 1 TABLET DAILY 90 tablet 3 loratadine (Claritin) 10 MG tablet TAKE 1 TABLET DAILY 90 tablet 1 metFORMIN XR (Glucophage-XR) 500 MG 24 hr tablet TAKE 1 TABLET THREE TIMES A DAY 270 tablet 1 metoprolol succinate XL (Toprol-XL) 25 MG 24 hr tablet Take 1 tablet (25 mg) by mouth daily. Do not crush or chew. 90 tablet 1 predniSONE (Deltasone) 20 MG tablet Take 1 tablet by mouth once daily as needed for hives. 10 tablet 0 rosuvastatin (Crestor) 10 MG tablet Take 1 tablet (10 mg) by mouth daily. 30 tablet 0 traMADol (Ultram) 50 MG tablet Take 1 tablet (50 mg) by mouth every 8 hours as needed for severe pain (7-10). 90 tablet 0 [DISCONTINUED] lidocaine (Lidoderm) 5 % patch Apply 1 patch topically daily. Remove & discard patch within 12 hours or as directed by . 9 patch 0 No facility-administered encounter medications on file as of 11/09/2023. CHONG Ballesteros CNP 11/09/2023 11:38 AM documented in this encounter [facility] 10-12-2023 Telephone encounter Note Prescription Request: Last medication check: none Last physical exam: 01/29/23 Next scheduled appointment: 11/09/23 Last date of refill on this medication 04/18/23 [facility] 10-12-2023 Miscellaneous Notes Prescription Request: Last medication check: none Last physical exam: 01/29/23 Next scheduled appointment: 11/09/23 Last date of refill on this medication 04/18/23 documented in this encounter [facility] 07-26-2023 History of Presen t illness Narrative Images from the original note were not included. [facility] [address] [facility] [id number] Dept: [phone] Dept Loc: [phone] Visit type: [facility] Initial Assessment Visit Date: 07/26/2023 Reason for Visit: Dementia Assessment and Plan 1. Mixed Alzheimer's and vascular dementia (HCC) - [facility] - MMSE today with a score of 13/30 (roughly equal to about a 6-7 on MoCA which is down from last visit 05/2020 with a MoCA score of 14/30) - Function: ADLs- cuing for bathing and changing of clothes, IADLs- dependent in IADLs - Patient is having reported panic type events that family has been managing with a mix of medications including prednisone and benadryl- dtr aware that both medications may worsen cognition, however, this has been working for them so OK for them to cautiously continue this - Discussed that should these events worsen in the future could discuss other medications for mood stabilization - Patient has good family support, no reported home safety issues at this time- dtr monitoring with outdoor cameras. - Family goal is to keep patient at home for as long as possible- fur floor worker discussed possible options for increased supports/respite, including: Caregiver Relief program, home health agency list, Adult Day Program list - Recommend continuing to stay physically, socially and mentally active - Patient's blood pressure is on the softer side today at visit, given her increased fall risk she may benefit from dose reduction of her antihypertensive regimen- Follow up regularly with family doctor to optimize blood pressure, cholesterol, blood sugar. - Dtr would like to follow up in 1 year, encouraged to call our office with any concerns or questions in the meantime. Follow up in about 1 year (around 07/25/2024). Subjective HPI: Cj Gillis is a 83 y.o. female who presents to the [facility] for a comprehensive geriatric assessment. The patient is new to me. PMH includes: mixed urinary incontience, chronic pain of feet, osteoarthritis, MDD, T2DM, essential hypertension, mixed hyperlipidemia Referred by PCP for Mixed Alzheimer's and vascular dementia (HCC) Has been previously evaluated at our clinic- last seen 06/14/20: seen by Dr. Jackson for [facility] At this visit diagnosis of Mixed Alzheimer's and vascular dementia reviewed, opted not to start donepezil . Cognitive testing performed on initial visit -05/31/20- reviewed- Total score was 14 out of 30. 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- granddtr does meal prep She can't cook anymore- thinks she is taking care of the barn animals Will say that she is overwhelmed They love to eat junk food Dtr can normally get her to do whatever Falling- occasionally, scoots and will get get feet low to get - thinks the cane confuses her worse Bad about not wanting to wear glasses Goal is to keep her home as long as possible When not in her own home is an elopement risk- ring camera Sleep - she will sleep well at night- has to be in her bed with her routine Feels like they are still safe at home Goal for visit today: Wants to see where she as History obtained from patient: Upset about getting a diagnosis at the last visit, said she was still working then Fixed on losing her drivers license- brings this up multiple times during the visit States that things are going pretty well- reports that they have animals and land Feels that she is overactive for her age Reports that she is in her 70s Feels like she does cry sometimes- doesn't take as much to make her cry- unable to describe why Noted to be repetitive in conversation Reviewed progress notes completed by SCHUYLER ZELAYA)and social work. Allergies Allergen Reactions Hydrocodone-Acetaminophen Celecoxib PALPITATIONS Morphine Other Rofecoxib PALPITATIO;NS Statins Other Other reaction(s): Other: See Comments Suspects lipitor decreases her hearing loss and tinnitus and liver spots. Current Outpatient Medications Medication Sig Dispense Refill acetaminophen (Tylenol) 500 MG tablet Take 500 mg by mouth in the morning and 500 mg before bedtime. aspirin 325 MG tablet Take 325 mg by mouth in the morning. Cholecalciferol (Vitamin D3) 125 MCG (5000 UT) tablet dispersible Take 125 mcg by mouth daily. DULoxetine HCl 30 MG Capsule Delayed Release Sprinkle Take 60 mg by mouth daily. 180 capsule 1 enalapril (Vasotec) 10 MG tablet Take 0.5 tablets (5 mg) by mouth daily. 45 tablet 1 famotidine (Pepcid) 20 MG tablet TAKE 1 TABLET DAILY 90 tablet 1 loratadine (Claritin) 10 MG tablet TAKE 1 TABLET DAILY 90 tablet 1 metFORMIN XR (Glucophage-XR) 500 MG 24 hr tablet TAKE 1 TABLET THREE TIMES A DAY 270 tablet 1 metoprolol succinate XL (Toprol-XL) 25 MG 24 hr tablet Take 1 tablet (25 mg) by mouth daily. Do not crush or chew. 90 tablet 1 predniSONE (Deltasone) 20 MG tablet Take 1 tablet by mouth once daily as needed for hives. 10 tablet 0 rosuvastatin (Crestor) 10 MG tablet Take 1 tablet (10 mg) by mouth daily. 30 tablet 0 SITagliptin (Januvia) 100 MG tablet TAKE 1 TABLET DAILY 90 tablet 1 traMADol (Ultram) 50 MG tablet Take 1 tablet (50 mg) by mouth every 8 hours as needed for severe pain (7-10). 90 tablet 0 Glucose Blood (Blood Glucose Test) strip Test two times a day & as needed for symptoms of irregular blood glucose. 200 strip 2 No current facility-administered medications for this visit. 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 TB (pulmonary tuberculosis) 1958 Social History Tobacco Use Smoking status: Never Smokeless tobacco: Never Substance Use Topics Alcohol use: No Past Surgical History: Procedure Laterality Date BLADDER SUSPENSION 1999 BLADDER SUSPENSION 2017 , CHOLECYSTECTOMY KNEE ARTHROPLASTY Bilateral 1999 TOTAL ABDOMINAL HYSTERECTOMY Family History Problem Relation Name Age of Onset Lung cancer Mother Depression Mother High Blood Pressure Father Hyperlipidemia Father High Blood Pressure Mother Hearing loss Father Heart attack Father Heart disease Father Coronary artery disease Father Family Status Relation Name Status Mother (Not Specified) Father (Not Specified) Objective Vitals: 07/26/23 1443 07/26/23 1454 BP: 102/68 96/57 BP Location: Right arm Right arm Patient Position: Sitting Standing Pulse: 79 80 Weight: 124 lb 12.8 oz (56.6 kg) Height: 5' 2.75 (1.594 m) Wt Readings from Last 3 Encounters: 07/26/23 124 lb 12.8 oz (56.6 kg) 03/16/23 124 lb 12.8 oz (56.6 kg) 01/29/23 127 lb 6.4 oz (57.8 kg) Physical Exam Constitutional: General: She is not in acute distress. HENT: Head: Normocephalic and atraumatic. Right Ear: External ear normal. Left Ear: External ear normal. Nose: Nose normal. Mouth/Throat: Mouth: Mucous membranes are moist. Pharynx: Oropharynx is clear. Comments: dentures Eyes: General: Right eye: No discharge. Left eye: No discharge. Conjunctiva/sclera: Conjunctivae normal. Comments: Glasses in place Cardiovascular: Rate and Rhythm: Normal rate and regular rhythm. Heart sounds: Normal heart sounds. Pulmonary: Effort: Pulmonary effort is normal. No respiratory distress. Breath sounds: Normal breath sounds. No wheezing, rhonchi or rales. Musculoskeletal: Cervical back: Normal range of motion. Right lower leg: No edema. Left lower leg: No edema. Skin: General: Skin is warm and dry. Neurological: Mental Status: She is alert. She is disoriented. Sensory: No sensory deficit. Psychiatric: Mood and Affect: Mood normal. Behavior: Behavior normal. Cognition and Memory: Memory is impaired. She exhibits impaired recent memory. Comments: Repetitive in conversation Data Reviewed and Summarized Old records reviewed and summarized here: labs as recorded below Labs: Lab Results Component Value Date WBC 7.3 01/29/2023 HGB 12.4 01/29/2023 HCT 36.7 01/29/2023 MCV 92.4 01/29/2023 PLT 298 01/29/2023 Lab Results Component Value Date NA 139 01/27/2022 NA 139 01/27/2022 K 4.1 01/27/2022 K 4.1 01/27/2022 CL 105 01/27/2022 CL 105 01/27/2022 CO2 27 01/29/2023 BUN 12 01/29/2023 CREATININE 0.54 (L) 01/29/2023 GLUCOSE 186 (H) 01/29/2023 CALCIUM 9.5 01/29/2023 PROT 7.3 01/29/2023 BILITOT 0.3 01/29/2023 ALKPHOS 73 01/29/2023 AST 11 03/16/2023 ALT 9 03/16/2023 AGRATIO 1.4 01/29/2023 GLOB 3.0 01/29/2023 Lab Results Component Value Date TSH 0.568 08/02/2021 No results found for: FOLATE Lab Results Component Value Date [id number] 480 10/15/2020 No results found for: RPR Testing: The following tests were performed at today's visit and scanned in to the chart: MMSE score: Clock drawing score: 3 PHQ-9 score: 9 MEENAKSHI score: not done I independently reviewed the Mini Mental Status Exam and Clock Draw Test from 07/26/2023. Test scanned in to the chart. I spent total time of 60 minutes face to face with the patient and/or family discussing the diagnosis and importance of compliance with the treatment plan as well as documenting on the day of the visit. In addition, that total time includes the following: -Reviewing previous notes, -Reviewing labs, -Reviewing previous cognitive tests, -Obtaining and/or reviewing separately obtained history, -Communicating results to the patient/family/caregiver, -Counseling/educating the patient/family/caregiver, -Documenting clinical information in the patients electronic record, and -Performing a medically appropriate exam and/or evaluation Review of Systems Constitutional: Positive for appetite change, fatigue and unexpected weight change. Negative for fever. HENT: Positive for hearing loss. Negative for dental problem and trouble swallowing. Eyes: Negative for visual disturbance. Respiratory: Negative for cough and shortness of breath. Cardiovascular: Negative for leg swelling. Gastrointestinal: Positive for diarrhea. Negative for constipation. Genitourinary: Positive for dysuria. Negative for difficulty urinating. Musculoskeletal: Positive for arthralgias. Negative for back pain and gait problem. Neurological: Negative for tremors, speech difficulty and weakness. Psychiatric/Behavioral: Positive for agitation, confusion, dysphoric mood and hallucinations. Negative for sleep disturbance. The patient is nervous/anxious. 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, plays with cats, sleeps more Exercise: active Finances: adequate savings, has elder care state's attorney My Chart: Only daughter uses Healthcare Power of Scrap Hooker: No Financial Power of Scrap [place]er: No Living Will: No Guardian: No Code Status: Full Code Primary Caregiver: , daughter Guerita Current care plan/supervision: daughter sees patient several times per day, other siblings help some Community resources: Yes: has cameras on outside doors, life alert- refuses to wear Caregiver stressors: daughter denies too much stress Goals for care: resources As a Caregiver, What Matters Most to You: Increase understanding of community resources >>07/26/23 Patient came with daughter. Patient fixated on not being able to drive anymore and talked repeatedly about that during visit. Daughter would like more information on resources, especially when she is out of town on vacation. SW gave her information about Caregiver Relief program through [employer], home health agencies, adult day programs that could provide some respite. SW also encouraged daughter to meet with elder care state's attorney to discuss future planning. Resources given today: Caregiver Relief program, home health agency list, Adult Day Program list, Elder Care [place]er list Functional Status (I: Independent, A: Assisted, D: Dependent) ADLs I A D Notes Bathing [] [x] [] Needs cuing to shower Dressing [] [x] [] Wears same clothes, needs cued to change Toileting [x] [] [] Incontinent, manages herself Transfers [x] [] [] No issues Feeding [x] [] [] No issues Ambulation [x] [] [] none Assistive devices: Grab bars and Shower chair IADLs I A D Telephone [] [x] [] Can call a few family members, daughter sets up appointments, needs constant reminders Transportation [] [] [x] Driving safety concerns: Not currently driving Shopping [] [] [x] Spouse or daughter shops Meal prep [] [] [x] Spouse or daughter cooks, neighbors bring food, will forget to eat, eats sweets Housework [] [] [x] Daughter cleans Medications [] [] [x] Daughter sets up pill box, spouse administers Finances [] [] [x] Spouse pays bills documented in this encounter [facility] 07-26-2023 Instructions CHONG Lofton CNP - 07/26/2023 2:45 PM EDT --Memory testing scores have declined since last visit --Recommend continuing to stay physically, socially and mentally active --Follow up regularly with family doctor to optimize blood pressure, cholesterol, blood sugar. --Follow up with our office in one year or sooner if needed documented in this encounter [facility] 07-06-2023 Telephone encounter Note Scheduled 07/26/23. [facility] 07-06-2023 Miscellaneous Notes Scheduled 07/26/23. Name of Caller: Guerita Contact Reason for Appointment: Returning call to schedule appointment. Please advise. Office Name: Senior Services Medication Refills need, if any: NA Medication Name: NA documented in this encounter [facility] 07-05-2023 Telephone encounter Note Name of Caller: Guerita Contact Reason for Appointment: Returning call to schedule appointment. Please advise. Office Name: Senior Services Medication Refills need, if any: NA Medication Name: NA [facility] 07-05-2023 Telephone encounter Note Prescription Request: Last medication check: none Last physical exam: 01/29/23 Next scheduled appointment: 08/03/23 Last date of refill on this medication 07/10/22 90 day 3 refills [facility] 07-05-2023 Miscellaneous Notes Prescription Request: Last medication check: none Last physical exam: 01/29/23 Next scheduled appointment: 08/03/23 Last date of refill on this medication 07/10/22 90 day 3 refills documented in this encounter [facility] 03-27-2023 Telephone encounter Note Reviewed chart. Refill appropriate. RX sent. [facility] 03-27-2023 Miscellaneous Notes Reviewed chart. Refill appropriate. RX sent. Prescription Request: Last medication check: 03/16/23 Last physical exam: 01/29/23 Next scheduled appointment: 08/03/23 CSA on file (date): 09/27/22 Last urine drug screen: none Last date of refill on this medication 01/19/23 90 tablets no refill documented in this encounter [facility] 03-27-2023 Telephone encounter Note Prescription Request: Last medication check: 03/16/23 Last physical exam: 01/29/23 Next scheduled appointment: 08/03/23 CSA on file (date): 09/27/22 Last urine drug screen: none Last date of refill on this medication 01/19/23 90 tablets no refill [facility] 03-16-2023 History of Presen t illness Narrative Patient was verified by name and . Images from the original note were not included. 03/16/2023 Cj Gillis (: 1940) is a 82 y.o. female , Established patient, here for evaluation of the following chief complaint(s): Blood Work, Depression, and Health Maintenance (Declines flu vaccine, has not had an RSV vaccine) ASSESSMENT/PLAN: 1. Mild episode of recurrent major depressive disorder (HCC) - Improved. Will continue on current dose of Cymbalta. 2. Mixed hyperlipidemia - Will recheck her cholesterol levels today and provide recommendations accordingly. 3. Dysuria - POCT Urinalysis dipstick - UA positive for blood and white blood cells. Will send urine for culture and Rx sent for Ciprofloxacin. 4. Urinary frequency - POCT Urinalysis dipstick - UA positive for blood and white blood cells. Will send urine for culture and Rx sent for Ciprofloxacin. 5. Essential hypertension, benign - Stable. Will continue on current dose of Enalapril. Follow up in 20 weeks (on 08/03/2023) for Next scheduled follow-up. SUBJECTIVE/OBJECTIVE: HPI - Cj presents today with her daughter for follow up on her depression. Had the dose of her Cymbalta increased at her previous appointment and both Cj and her daughter feel there has been improvement in her mood and interaction with others. Denies any unwanted side effects/intolerances since starting the higher dose. Would like to continue taking it. Is also due for repeat blood work to follow up on her hyperlipidemia. Has been taking her Rosuvastatin daily as prescribed. Denies myalgias. Is also worried she may be fighting another bladder infection. Has been experiencing painful urination for the past week and a half. Was treated for a UTI at the end of December with Bactrim. Has a history of recurrent UTI's. Her blood pressure is mildly elevated today at 142/76. Had issues with hypotension in the past so keeping it a little elevated has helped prevent dizziness. See ROS for additional information. Review of Systems Constitutional: Negative for chills and fever. Cardiovascular: Negative for chest pain. Gastrointestinal: Negative for abdominal distention, abdominal pain, nausea and vomiting. Genitourinary: Positive for dysuria, frequency and urgency. Negative for difficulty urinating, flank pain and hematuria. Psychiatric/Behavioral: Positive for dysphoric mood. Negative for self-injury and suicidal ideas. Vitals: 03/16/23 0754 03/16/23 0806 BP: (!) 149/65 (!) 142/76 Pulse: 75 SpO2: 98% Weight: 124 lb 12.8 oz (56.6 kg) Height: 5' 3.5 (1.613 m) Body mass index is 21.76 kg/m . Last 3 PHQ-9 Scores 03/16/2023 0818 Patient Health Questionnaire-9 Score: 4 Physical Exam Constitutional: General: She is not in acute distress. Appearance: She is not ill-appearing or diaphoretic. Cardiovascular: Rate and Rhythm: Normal rate and regular rhythm. Heart sounds: Normal heart sounds. No murmur heard. No friction rub. Pulmonary: Effort: Pulmonary effort is normal. Breath sounds: Normal breath sounds. No wheezing, rhonchi or rales. Abdominal: General: Bowel sounds are normal. There is no distension. Palpations: Abdomen is soft. Tenderness: There is no abdominal tenderness. There is no right CVA tenderness, left CVA tenderness or guarding. Musculoskeletal: Right lower leg: No edema. Left lower leg: No edema. Skin: General: Skin is warm and dry. Coloration: Skin is not pale. Findings: No erythema or rash. Neurological: Mental Status: She is alert. Mental status is at baseline. Psychiatric: Mood and Affect: Mood normal. Behavior: Behavior normal. An electronic signature was used to authenticate this note. CHONG Ballesteros CNP 03/16/2023 8:23 AM documented in this encounter [facility] 03-05-2023 Note HNO ID: [id number] Author: Lynette Santiago Service: ? Author Type: Physician Type: Progress Notes Filed: 03/05/2023 9:24 AM Note Text: Initial Office Visit Subjective: This 82 year old female presents to clinic for diabetic foot check. Patient has the following complaints: pain to the top of b/l feet. Patient admits to being diabetic for 25-30 years now. Patient -B/T/N in feet at this time. Patient -pain in legs when walking. No other pedal complaints at this time. No change in medications or medical history since last visit. PAIN EVALUATION No data found in the last 1 encounters. Hemoglobin A1C (%) Date Value 07/01/2018 7.4 05/07/2017 7.3 01/31/2016 7.4 10/14/2015 7.7 05/20/2015 9.0 PCP: Carlos Herron MD PAST MEDICAL HISTORY Diagnosis Date Atrophic gastritis without mention of hemorrhage BENIGN HYPERTENSION 08/04/2003 Diarrhea Diverticulosis of colon (without mention of hemorrhage) DVT (deep venous thrombosis) (HCC) Esophagitis, unspecified Gall bladder disease GEN OSTEOARTHROS-HAND Heart murmur Hyperlipidemia Irregular heart beat 04/28/2009 JOINT PAIN-ANKLE Other and unspecified hyperlipidemia Pain in limb Peripheral vascular disease, unspecified (HCC) h/o DVT/PE PERS HX VENOUS THROMB/EMBOLISM 02/04/2003 Pulmonary embolism (HCC) late around the time of foot surgery Rheumatic fever TB (tuberculosis) 04/28/2009 Age 17-18 Type II or unspecified type diabetes mellitus without mention of complication, not stated as uncontrolled Unspecified essential hypertension Unspecified pulmonary tuberculosis, confirmation unspecified h/o TB Current Outpatient Medications Medication Sig rosuvastatin (CRESTOR) 10 mg tablet Take 10 mg by mouth once daily. famotidine (PEPCID) 20 mg tablet Take 20 mg by mouth once daily. loratadine (CLARITIN) 10 mg tablet Take 10 mg by mouth once daily. sitaGLIPtin (JANUVIA) 100 mg tablet Take 1 tablet by mouth once daily. betaxolol (KERLONE) 10 mg tablet Take 0.5 tablets by mouth once daily. traMADol (ULTRAM) 50 mg tablet Take 1-2 tablets by mouth twice daily for 90 days. as directed (Patient taking differently: Take 50-100 mg by mouth every 8 hours as needed. as directed) DULoxetine (CYMBALTA) 30 mg capsule Take 1 capsule by mouth twice daily. (Patient taking differently: Take 30 mg by mouth once daily.) metFORMIN ER (GLUCOPHAGE XR) 500 mg 24 hr tablet Take 3 tablets by mouth daily with breakfast. May increase to 2000mg (4 tablets) daily as tolerated. (Patient taking differently: Take 500 mg by mouth daily with breakfast. BID) Potassium 99 mg tab Take by mouth once daily. enalapril (VASOTEC) 10 mg tablet Take 1 tablet by mouth once daily. Lancets lancets Test Two times a day. Insulin Dep? No E11.9 DM 2 alcohol swabs (ALCOHOL PADS) padm Test Two times a day. Insulin Dep? No E11.9 DM 2 blood sugar diagnostic (BLOOD GLUCOSE TEST) test strip Test 2 times daily, Insulin Dep? No E11.9 DM 2 acetaminophen (TYLENOL EXTRA STRENGTH) 500 mg tablet Take 500-1,000 mg by mouth every 8 hours as needed. aspirin 325 mg ORAL tablet Take 325 mg by mouth once daily. escitalopram oxalate (ESCITALOPRAM) 5 mg tablet Take 5 mg by mouth once daily. (Patient not taking: Reported on 03/05/2023) amLODIPine (NORVASC) 5 mg tablet Take 1 tablet by mouth once daily. (Patient not taking: Reported on 07/23/2020) phenazopyridine (PYRIDIUM) 200 mg tablet Take 1 tablet by mouth three times daily as needed. oxybutynin XL (DITROPAN XL) 5 mg 24 hr tablet Take 1 tablet by mouth once daily. (Patient not taking: Reported on 07/23/2020) pravastatin (PRAVACHOL) 20 mg tablet Take 1 tablet by mouth once daily. (Patient not taking: Reported on 07/23/2020) magnesium oxide 400 mg magnesium tab Take by mouth once daily. (Patient not taking: Reported on 07/23/2020) diphenhydrAMINE (BENADRYL) 25 mg capsule Take 25 mg by mouth every 4 hours as needed. COMPOUNDED PRESCRIPTION If patient presents with allergic reaction, please check tryptase level and fax results to Dr. Sprague at [phone] No current facility-administered medications for this visit. ALLERGIES Allergen Reactions Celecoxib PALPITATIONS Lipitor [Atorvastat* Other: See Comments Suspects lipitor decreases her hearing loss and tinnitus and liver spots. Morphine GI Upset Opioids-Meperidine * GI Upset Rofecoxib PALPITATIO;NS PAST SURGICAL HISTORY Procedure Laterality Date ANTERIOR COLPORRAPHY RPR CYSTOCELE W/CYSTO 1997 cystocele/rectocele/bladder susp ARTHROSCOPY KNEE DIAGNOSTIC W/WO SYNOVIAL BX SPX Arthroscopy, knee ARTHRP KNE CONDYLEANDPLATU MEDIALANDLAT COMPARTMENTS 02/10/03 bilateral total knee arthroplasty CHOLECYSTECTOMY remote COLONOSCOPY FLX DX W/COLLJ SPEC WHEN PFRMD 04/10/05 Colonoscopy COLONOSCOPY FLX DX W/COLLJ SPEC WHEN PFRMD 04/11/12 Colonoscopy repeat 10 years COLONOSCOPY FLX DX W/COLLJ SPEC WHEN PFRMD 07/31/2018 Colonoscopy COLPOPEXY (more content not included)... [facility] 03-05-2023 Note HNO ID: [id number] Author: Elizabeth De Guzman, RN Service: ? Author Type: Registered Nurse Type: Progress Notes Filed: 03/05/2023 9:24 AM Note Text: Patient presents with: Left Foot - Established Patient, Follow Up, Diabetic Foot Check Right Foot - Established Patient, Follow Up, Diabetic Foot Check Patient presents for order for new diabetic shoes. ATUL-07/23/20. States that she gets pain in the evenings to the top of her feet. [facility] 03-05-2023 Instructions Lynette Santiago - 03/05/2023 9:14 AM EST Diabetes Foot Care Instructions When you have diabetes, proper foot care is very important. Poor foot care may lead to amputation of a foot or leg. As a person with diabetes, you are more vulnerable to foot problems, because diabetes can damage your nerves and reduce blood flow to your feet. Here are some diabetes foot care tips to follow: Wash and Dry Your Feet Daily Use mild soaps Use warm water Pat your skin dry; do not rub. Thoroughly dry your feet. After washing, use lotion on your feet to prevent cracking. Do not put lotion between your toes. Examine Your Feet Each Day Check the tops and bottoms of your feet. Have someone else look at your feet if you cannot see them. Check for dry, cracked skin. Look for blisters, cuts, scratches, or other sores. Check for redness, increased warmth, or tenderness when touching any area of your feet. Check for ingrown toenails, corns, and calluses. If you get a blister or sore from your shoes, do not pop it. Apply a bandage and wear a different pair of shoes. Take Care of Your Toenails Cut toenails after bathing, when they are soft. Cut toenails straight across and smooth with a nail file. Avoid cutting into the corners of toes. Do not cut cuticles. If you have neuropathy (or decreased sensation in your feet) a academic advisor should always cut your toenails. Be Careful When Exercising Walk and exercise in comfortable shoes. Do not exercise when you have open sores on your feet. Protect Your Feet With Shoes and Socks Never go barefoot. Always protect your feet by wearing shoes or hard-soled slippers or footwear. Avoid shoes with high heels and pointed toes. Avoid shoes that expose your toes or heels (such as open-toed shoes or sandals). These types of shoes increase your risk for injury and potential infections. Try on new footwear with the type of socks you usually wear. Do not wear new shoes for more than an hour at a time. Change your socks daily. Look and feel inside your shoes before putting them on to make sure there are no foreign objects or rough areas. Avoid tight socks. Wear natural-fiber socks (cotton, wool, or a cotton-wool blend). Wear special shoes if your health care provider recommends them. Wear shoes/boots that will protect your feet from various weather conditions (cold, moisture, etc.). Make sure your shoes fit properly. If you have neuropathy (nerve damage), you may not notice that your shoes are too tight. Perform the footwear test described below. Footwear Test Use this simple test to see if your shoes fit correctly: Stand on a piece of paper. (Make sure you are standing and not sitting, because your foot changes shape when you stand.) Trace the outline of your foot. Trace the outline of your shoe. Compare the tracings: Is the shoe too narrow? Is your foot crammed into the shoe? The shoe should be at least 1/2 inch longer than your longest toe and as wide as your foot. Proper Shoe Choices The following types of shoes are best for people with diabetes Closed toes and heels Leather uppers without a seam inside At least 1/2 inch extra space at the end of your longest toe Inside of shoe should be soft with no rough areas Outer sole should be made of stiff material Shoes should be at least as wide as your feet Tips for Foot Care in Diabetes Don't wait to treat a minor foot problem if you have diabetes. Follow your health care provider's guidelines and first aid guidelines. Report foot injuries and infections to your health care provider immediately. Check water temperature with your elbow, not your foot. Do not use a heating pad on your feet. Do not cross your legs. Do not self-treat your corns, calluses, or other foot problems. Go to your health care provider or academic advisor to treat these conditions. documented in this encounter [facility] 03-05-2023 History of Presen t illness Narrative Initial Office Visit Subjective: This 82 year old female presents to clinic for diabetic foot check. Patient has the following complaints: pain to the top of b/l feet. Patient admits to being diabetic for 25-30 years now. Patient -B/T/N in feet at this time. Patient -pain in legs when walking. No other pedal complaints at this time. No change in medications or medical history since last visit. PAIN EVALUATION No data found in the last 1 encounters. Hemoglobin A1C (%) Date Value 07/01/2018 7.4 05/07/2017 7.3 01/31/2016 7.4 10/14/2015 7.7 05/20/2015 9.0 PCP: Carlos Herron MD PAST MEDICAL HISTORY Diagnosis Date Atrophic gastritis without mention of hemorrhage BENIGN HYPERTENSION 08/04/2003 Diarrhea Diverticulosis of colon (without mention of hemorrhage) DVT (deep venous thrombosis) (HCC) Esophagitis, unspecified Gall bladder disease GEN OSTEOARTHROS-HAND Heart murmur Hyperlipidemia Irregular heart beat 04/28/2009 JOINT PAIN-ANKLE Other and unspecified hyperlipidemia Pain in limb Peripheral vascular disease, unspecified (HCC) h/o DVT/PE PERS HX VENOUS THROMB/EMBOLISM 02/04/2003 Pulmonary embolism (HCC) late 1980s around the time of foot surgery Rheumatic fever TB (tuberculosis) 04/28/2009 Age 17-18 Type II or unspecified type diabetes mellitus without mention of complication, not stated as uncontrolled Unspecified essential hypertension Unspecified pulmonary tuberculosis, confirmation unspecified h/o TB Current Outpatient Medications Medication Sig rosuvastatin (CRESTOR) 10 mg tablet Take 10 mg by mouth once daily. famotidine (PEPCID) 20 mg tablet Take 20 mg by mouth once daily. loratadine (CLARITIN) 10 mg tablet Take 10 mg by mouth once daily. sitaGLIPtin (JANUVIA) 100 mg tablet Take 1 tablet by mouth once daily. betaxolol (KERLONE) 10 mg tablet Take 0.5 tablets by mouth once daily. traMADol (ULTRAM) 50 mg tablet Take 1-2 tablets by mouth twice daily for 90 days. as directed (Patient taking differently: Take 50-100 mg by mouth every 8 hours as needed. as directed) DULoxetine (CYMBALTA) 30 mg capsule Take 1 capsule by mouth twice daily. (Patient taking differently: Take 30 mg by mouth once daily.) metFORMIN ER (GLUCOPHAGE XR) 500 mg 24 hr tablet Take 3 tablets by mouth daily with breakfast. May increase to 2000mg (4 tablets) daily as tolerated. (Patient taking differently: Take 500 mg by mouth daily with breakfast. BID) Potassium 99 mg tab Take by mouth once daily. enalapril (VASOTEC) 10 mg tablet Take 1 tablet by mouth once daily. Lancets lancets Test Two times a day. Insulin Dep? No E11.9 DM 2 alcohol swabs (ALCOHOL PADS) padm Test Two times a day. Insulin Dep? No E11.9 DM 2 blood sugar diagnostic (BLOOD GLUCOSE TEST) test strip Test 2 times daily, Insulin Dep? No E11.9 DM 2 acetaminophen (TYLENOL EXTRA STRENGTH) 500 mg tablet Take 500-1,000 mg by mouth every 8 hours as needed. aspirin 325 mg ORAL tablet Take 325 mg by mouth once daily. escitalopram oxalate (ESCITALOPRAM) 5 mg tablet Take 5 mg by mouth once daily. (Patient not taking: Reported on 03/05/2023) amLODIPine (NORVASC) 5 mg tablet Take 1 tablet by mouth once daily. (Patient not taking: Reported on 07/23/2020) phenazopyridine (PYRIDIUM) 200 mg tablet Take 1 tablet by mouth three times daily as needed. oxybutynin XL (DITROPAN XL) 5 mg 24 hr tablet Take 1 tablet by mouth once daily. (Patient not taking: Reported on 07/23/2020) pravastatin (PRAVACHOL) 20 mg tablet Take 1 tablet by mouth once daily. (Patient not taking: Reported on 07/23/2020) magnesium oxide 400 mg magnesium tab Take by mouth once daily. (Patient not taking: Reported on 07/23/2020) diphenhydrAMINE (BENADRYL) 25 mg capsule Take 25 mg by mouth every 4 hours as needed. COMPOUNDED PRESCRIPTION If patient presents with allergic reaction, please check tryptase level and fax results to Dr. Sprague at [phone] No current facility-administered medications for this visit. ALLERGIES Allergen Reactions Celecoxib PALPITATIONS Lipitor [Atorvastat* Other: See Comments Suspects lipitor decreases her hearing loss and tinnitus and liver spots. Morphine GI Upset Opioids-Meperidine * GI Upset Rofecoxib PALPITATIO;NS PAST SURGICAL HISTORY Procedure Laterality Date ANTERIOR COLPORRAPHY RPR CYSTOCELE W/CYSTO 1996 cystocele/rectocele/bladder susp ARTHROSCOPY KNEE DIAGNOSTIC W/WO SYNOVIAL BX SPX Arthroscopy, knee ARTHRP KNE CONDYLE&PLATU MEDIAL&LAT COMPARTMENTS 02/10/03 bilateral total knee arthroplasty CHOLECYSTECTOMY remote COLONOSCOPY FLX DX W/COLLJ SPEC WHEN PFRMD 04/10/05 Colonoscopy COLONOSCOPY FLX DX W/COLLJ SPEC WHEN PFRMD 04/11/12 Colonoscopy repeat 10 years COLONOSCOPY FLX DX W/COLLJ SPEC WHEN PFRMD 07/31/2018 Colonoscopy COLPOPEXY, VAGINAL EXTRAPERITONEAL 02/02/16 ESOPHAGOGASTRODUODENOSCOPY TRANSORAL DIAGNOSTIC 04/11/12 EGD PAST SURGICAL HISTORY OF Cataract surgery, bilateral 2012 FAMILY HISTORY Problem Relation Age of Onset Ischemic Heart Disease Father FROM BLOOD CLOT AFTER CABG other (hyperlipidemia [Other]) Father DVT Mother varicois veins None Brother Social History Tobacco Use Smoking status: Never Smokeless tobacco: Never Vaping Use Vaping Use: Never used Substance Use Topics Alcohol use: No Drug use: No REVIEW OF SYSTEMS GENERAL: Negative for Malaise, significant weight loss, fever RESPIRATORY: Negative for cough, wheezing and shortness of breath CARDIOVASCULAR: Negative for chest pain, leg swelling and palpitations GI: Negative for abdominal discomfort, blood in stools or black stools and change in bowel habits : Negative for dysuria, frequency and incontinence MUSCULOSKELETAL: Negative for joint pain or swelling, back pain, and muscle pain. SKIN: Negative for lesions, rash, and itching. HEMATOLOGY/LYMPHOLOGY Negative for prolonged bleeding, bruising easily, and swollen nodes. ENDOCRINE: Negative for cold or heat intolerance, polyuria, polydipsia and goiter. NEURO: negative The remainder of the review of systems is noncontributory. Objective: Patient presents to clinic ambulating in boots Constitutional: Pt is a well developed 82 year old female who is alert, oriented, cooperative and in no apparent distress. Eyes: Following during examination. No redness or drainage. Respiratory: RR normal and nonlabored. Even breathing. No evidence of distress. Psychology: Patient is engaged during conversation. Normal affect and mood. Does not appear depressed or anxious. Vasc: DP and PT pulses are palpable bilateral. CFT is less than 5 seconds bilateral. Skin temperature is warm to warm proximal to distal bilateral. There is no edema or varicosities noted. Hair growth absent. Neuro: Protective sensation is intact to the foot and toes when tested with the 5.07 SWM bilateral. Vibratory sensation is decreased at the hallux bilateral. +Significant neurological defecits. Derm: Inspection and palpation performed. Nails 1-5 b/l are discolored-yellow, thick, crumbly, dystrophic and with subungal debris. Skin is of normal turgor and texture. Hyperkeratosis noted to b/l 1st and 5th metatarsal. NO ulcerations, scars, verruca or other lesions noted. Ortho: Ankle joint DF is full with the knee extended and full with knee flexed. No pain or crepitus noted. STJ, MTJ ROM are full and free of pain or crepitus. Muscle strength is 5/5 for dorsiflexors, plantarflexors, inverters, everters. Digital deformities include midfoot arthritis. 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 Patient was seen and evaluated. 2. Patient was instructed on the continued importance of diabetic foot care along with proper diet and keeping their blood sugar under control to prevent complications. Instructions given both oral and written. 3. Discussed arthritis of b/l midfoot. Discussed conservaitve options not limited to padding, wider shoes, altering the laces vs injection vs surgical resection vs fusion. Patient has elected to continue with conservative care 4. Callus reduced with dremmel. Discussed diabetic shoes. Being that she is diabetic with neuropathy, arthritis of midfoot and callus, she is candidate for diabetic shoe 5. F/u in1 year Lynette Santiago DPM Patient presents with: Left Foot - Established Patient, Follow Up, Diabetic Foot Check Right Foot - Established Patient, Follow Up, Diabetic Foot Check Patient presents for order for new diabetic shoes. ATUL-07/23/20. States that she gets pain in the evenings to the top of her feet. documented in this encounter [facility] 01-29-2023 History of Presen t illness Narrative Images from the original note were not included. [address] [address] Visit type: Established Patient Reason for Visit: Medicare Annual Wellness Visit Initial (MAW/Pt is sleeping more //Pt states that she has had a DEXA scan,/Pt refuses Covid 19, zoster, Influenza, and pneumococcal vaccines ) Assessment and Plan 1. Medicare annual wellness visit, subsequent - Encouraged a healthy diet low in cholesterol and saturated fats. - Encouraged regular exercise. 2. Mixed Alzheimer's and vascular dementia ([facility]) - CBC - Comprehensive metabolic panel - Progressing. Declines additional workup at this time. Discussed home safety measures. 3. Type 2 diabetes mellitus without complication, without long-term current use of insulin ([facility]/HCC) ([facility]) - CBC - Comprehensive metabolic panel - Hemoglobin A1c - Microalbumin / creatinine urine ratio - Diabetes Foot Exam - Glucose Blood (Blood Glucose Test) strip; Test two times a day & as needed for symptoms of irregular blood glucose., Normal - Stable with Metformin and Januvia. Will continue current treatment plan. 4. Encounter for diabetic foot exam ([facility]) - Diabetes Foot Exam 5. Atherosclerosis of coronary artery without angina pectoris, unspecified vessel or lesion type, unspecified whether wales or transplanted heart - CBC - Comprehensive metabolic panel - Lipid panel - Encouraged daily Rosuvastatin. Will notify of blood work results. 6. Essential hypertension, benign - BP elevated today. Will continue half of a tablet of Enalapril due to hypotensive concerns when checking at home. Continue to monitor at home. - CBC - Comprehensive metabolic panel 7. Osteoarthritis, unspecified osteoarthritis type, unspecified site - CBC - Comprehensive metabolic panel - Stable with Tramadol and Tylenol as needed. Will continue current treatment plan. 7. Chronic pain of both feet - CBC - Comprehensive metabolic panel - Stable with Tramadol and Tylenol as needed. Will continue current treatment plan. 8. Mild episode of recurrent major depressive disorder (HCC) - CBC - Comprehensive metabolic panel - DULoxetine HCl 30 MG Capsule Delayed Release Sprinkle; Take 60 mg by mouth daily., Starting 01/29/2023, Normal - Not well controlled. Will increase Cymbalta to 60 mg and do a close follow up in 2 weeks. 9. Mixed stress and urge urinary incontinence - POCT Urinalysis dipstick - UA positive for signs of infection. Will start on oral Bactrim and send urine for culture. 10. Hematuria, unspecified type - Urine culture - UA positive for signs of infection. Will start on oral Bactrim and send urine for culture. 11. Leukocytes in urine - Urine culture - UA positive for signs of infection. Will start on oral Bactrim and send urine for culture. Follow up in about 2 weeks (around 02/12/2023) for follow up on depression and then in 3 months for diabetes management. Subjective HPI- Cj presents today with her daughter for her annual Medicare physical and fasting blood work. Alzheimer's Dementia: Symptoms have been progressing. Has seen geriatrics in the past and did not feel comfortable with the medication management that as recommended. Will have random exacerbations of disorientation and hives and will do a cocktail of Pepcid, Prednisone, and a Benadryl and this manages her symptoms. Symptoms used to be a few times a year but lately has been happening about once a month. Declines additional workup or follow up with geriatrics at this time. Has family stopping in daily to assist and Cj's helps out as well. Diabetes Mellitus Type II: Current symptoms/problems include none. Known diabetic complications: cardiovascular disease Cardiovascular risk factors: advanced age (older than 55 for men, 65 for women), diabetes mellitus, dyslipidemia, and hypertension Current diabetic medications include Metformin and Januvia . Eye exam current (within one year): Yes Dental exam current (within one year): Yes Weight trend: stable Prior visit with business architect: No Current diet: in general, an unhealthy diet Current exercise: active around the house Current monitoring regimen: home blood tests - several times monthly Home blood sugar records: fasting range: 140-160 Any episodes of hypoglycemia? No Is She on LORENE inhibitor or angiotensin II receptor elizabeth? Yes enalapril (Vasotec)- blood pressure is mildly elevated today at 142/62. Was getting readings of 70/50 at home and has been giving her half of a tablet of the Enalapril. Currently on statin therapy? No- has not taken the Rosuvastatin for the past 3-4 months Last urine microalbumin was 7.2 mg/L on 01/26/21. Last foot exam was 01/27/22. Does follow up with podiatry and is working with them on obtaining diabetic shoes. She does have a comprehensive diabetic plan and needs diabetic shoes and custom inserts. I do believe she would benefit by wearing diabetic shoes. OA/Chronic Pain of Both Feet: Will use Tramadol as needed and this works well for her. Depression: Does not feel symptoms have been as well controlled. Would like to ry a higher dose of her daily Cymbalta. Urinary Incontinence: Has followed up with a specialist and was told she does not qualify for any more surgical corrections. Did not want to have a nerve stimulator. Will wear a depends and this helps. Can get recurrent infections with this and would like a urine obtained today because she will be going out of town in the next few days. Health Maintenance: Declines a DEXA scan for osteoporosis screening. Declines a COVID-19 vaccination. Declines a shingles vaccination. Declines to be vaccinated for Hep B. Declines a Tdap vaccination. Declines a pneumococcal vaccination. Declines a flu vaccination. I have reviewed and reconciled the medication list with the patient today. Current Outpatient Medications Medication Sig Dispense Refill acetaminophen (Tylenol) 500 MG tablet Take 500 mg by mouth in the morning and 500 mg before bedtime. aspirin 325 MG tablet Take 325 mg by mouth in the morning. betaxolol (Kerlone) 10 MG tablet TAKE ONE-HALF (1/2) TABLET DAILY 45 tablet 0 enalapril (Vasotec) 10 MG tablet TAKE 1 TABLET DAILY 90 tablet 1 famotidine (Pepcid) 20 MG tablet TAKE 1 TABLET DAILY 90 tablet 3 loratadine (Claritin) 10 MG tablet TAKE 1 TABLET DAILY 90 tablet 3 metFORMIN XR (Glucophage-XR) 500 MG 24 hr tablet TAKE 1 TABLET THREE TIMES A DAY 270 tablet 1 SITagliptin (Januvia) 100 MG tablet TAKE 1 TABLET DAILY 90 tablet 1 traMADol (Ultram) 50 MG tablet Take 1 tablet (50 mg) by mouth every 8 hours as needed for severe pain (7-10). 90 tablet 0 DULoxetine HCl 30 MG Capsule Delayed Release Sprinkle Take 60 mg by mouth daily. 180 capsule 1 Glucose Blood (Blood Glucose Test) strip Test two times a day & as needed for symptoms of irregular blood glucose. 200 strip 2 No current facility-administered medications for this visit. Medications Discontinued During This Encounter Medication Reason Glucose Blood (Blood Glucose Test) strip Reorder DULoxetine HCl 30 MG Capsule Delayed Release Sprinkle Reorder List of current healthcare providers: Patient Care Team: Carlos Herron MD as PCP - General (Family Medicine) The following health maintenance schedule was reviewed with the patient and provided in printed form in the after visit summary: Health Maintenance Topic Date Due COVID-19 Vaccine (1) Never done Depresssion Monitoring Never done Zoster Vaccines (1 of 2) Never done Hepatitis B Vaccines (1 of 3 - Risk 3-dose series) Never done DTaP/Tdap/Td Vaccines (1 - Tdap) 04/03/2007 Pneumococcal Vaccine: 65+ Years (2 - PCV) 01/01/2021 Influenza Vaccine (1) 12/01/2022 Medicare Advantage Annual Wellness Visit (AWV) 02/26/2023 Bone Density Scan 01/30/2024 (Originally 1940) HIB Vaccines Aged Out IPV Vaccines Aged Out Hepatitis A Vaccines Aged Out Meningococcal Vaccine Aged Out Rotavirus Vaccines Aged Out HPV Vaccines Aged Out Orders Placed This Encounter Procedures CBC Standing Status: Future Number of Occurrences: 1 Standing Expiration Date: 01/30/2024 Comprehensive metabolic panel Standing Status: Future Number of Occurrences: 1 Standing Expiration Date: 01/30/2024 Lipid panel Standing Status: Future Number of Occurrences: 1 Standing Expiration Date: 01/30/2024 Hemoglobin A1c Standing Status: Future Number of Occurrences: 1 Standing Expiration Date: 01/30/2024 Microalbumin / creatinine urine ratio Standing Status: Future Number of Occurrences: 1 Standing Expiration Date: 01/30/2024 POCT Urinalysis dipstick Hm Diabetes Foot Exam Health Risk Assessment: General In general, how would you say your health is?: Good In the past 7 days, have you experienced any of the following: New or Increased Pain, New or Increased Fatigue, Loneliness, Social Isolation, Stress or Anger?: (!) Yes Select all that apply: (!) New or Increased Fatigue Do you get the social and emotional suppport you need?: Yes Interventions: Fatigue: addressed in HPI- depression Health Habits / Nutrition On average, how many days per week do you engage in moderate to strenous exercise (like a brisk walk)?: 7 days On average, how man minutes do you engage in exercise at this level?: 60 min Have you lost any weight without trying in the past 3 months? : No Have you seen the dentist within the past year?: Yes Interventions: N/A Hearing / Vision Do you or your family notice any trouble with your hearing that hasn't been managed with hearing aids?: No Do you have difficulty driving, watching TV, or doing any of your daily activities because of your eyesight?: No Have you had an eye exam within the past year?: Yes No results found. Interventions: N/A Safety Do you have a working smoke detector?: Yes Do you have any tripping hazards - loose or unsecured carpets or rugs?: No Do you have any tripping hazards - clutter in doorways, halls, or stairs?: No Do you have either shower bars, grab bars, non-slip mats or non-slip surfaces in your shower or bathtub? : Yes Do all your stairways have a railing or banister? : Yes Do you fasten your seatbelt when you are in a car?: Yes Interventions: Home safety tips provided ADL In the past 7 days, did you need help from others to perform any of the following everyday activities: Eating, dressing, grooming,bathing, toileting, or walking / balance? : No In the past 7 days, did you need help from others to take care of any of the following: laundry, housekeeping, banking / finances,shopping, telephone use, food preparation, transportation, or taking medications? : No Interventions: Patient declines any further evaluation / treatment for this issue Living Will Do you have a living will?: Yes Interventions: N/A Cognitive: Cognitive Screening: Mini-Cog Clock Drawing Test (CDT): (!) 0 Words Recalled: 0 Total Score: 0 Total Score Interpretation: Abnormal Mini-Cog Hypertension: Yes Interventions: Patient declines any further evaluation / treatment for cognitive impairment Fall Risk: 01/29/2023 1040 Fall Risk One or more falls in the last year: Yes Advised to use a cane or walker to get around safely: No Feels unsteady when walking: No Steadies self on furniture while walking at home: Yes Worried about falling: No Interventions: Home safety tips provided Depression Screening: Over the past 2 weeks, how often have you been bothered by any of the following problems? Little interest or pleasure in doing things: Not at all Feeling down, depressed, or hopeless: Several days Patient Health Questionnaire-2 Score: 1 If you checked off any problems on this questionnaire so far, How difficult have these problems made it for you to do your work, take care of things at home, or get along with other people?: Not difficult at all Interventions: Addressed in HPI Tobacco Use: Social History Tobacco Use Smoking Status Never Smokeless Tobacco Never Interventions: N/A Alcohol Use: Audit Alcohol Screening Q1: How often do you have a drink containing alcohol?: Never Q2: How many drinks containing alcohol do you have on a typical day when you are drinking?: Patient does not drink Q3: How often do you have six or more drinks on one occasion?: Never Audit-C Score: 0 Skip to questions 9-10?: 1 Interventions: N/A Drug Use: Interventions: N/A Review of Systems Constitutional: Negative for chills and fever. HENT: Negative for hearing loss and trouble swallowing. Eyes: Negative for pain and visual disturbance. Respiratory: Negative for cough, chest tightness, shortness of breath and wheezing. Cardiovascular: Negative for chest pain, palpitations and leg swelling. Gastrointestinal: Negative for abdominal distention, abdominal pain, blood in stool, constipation and diarrhea. Endocrine: Positive for polyphagia. Negative for polydipsia and polyuria. Genitourinary: Negative for dysuria and hematuria. Musculoskeletal: Positive for arthralgias. Skin: Negative for color change, pallor, rash and wound. Neurological: Negative for syncope and weakness. Hematological: Does not bruise/bleed easily. Psychiatric/Behavioral: Positive for dysphoric mood. Negative for agitation, self-injury and suicidal ideas. Immunization History Administered Date(s) Administered Influenza, High-dose Seasonal, Quadrivalent, Preservative Free 01/02/2020 Pneumococcal Polysaccharide PPSV23 01/02/2020 TD (adult), 2 Lf tetanus toxoid, preservative free, adsorbed 04/02/2007 Allergies Allergen Reactions Hydrocodone-Acetaminophen Celecoxib PALPITATIONS Morphine Other Rofecoxib PALPITATIO;NS Statins Other Other reaction(s): Other: See Comments Suspects lipitor decreases her hearing loss and tinnitus and liver spots. Outpatient Medications Prior to Visit Medication Sig Dispense Refill acetaminophen (Tylenol) 500 MG tablet Take 500 mg by mouth in the morning and 500 mg before bedtime. aspirin 325 MG tablet Take 325 mg by mouth in the morning. betaxolol (Kerlone) 10 MG tablet TAKE ONE-HALF (1/2) TABLET DAILY 45 tablet 0 enalapril (Vasotec) 10 MG tablet TAKE 1 TABLET DAILY 90 tablet 1 famotidine (Pepcid) 20 MG tablet TAKE 1 TABLET DAILY 90 tablet 3 loratadine (Claritin) 10 MG tablet TAKE 1 TABLET DAILY 90 tablet 3 metFORMIN XR (Glucophage-XR) 500 MG 24 hr tablet TAKE 1 TABLET THREE TIMES A DAY 270 tablet 1 SITagliptin (Januvia) 100 MG tablet TAKE 1 TABLET DAILY 90 tablet 1 traMADol (Ultram) 50 MG tablet Take 1 tablet (50 mg) by mouth every 8 hours as needed for severe pain (7-10). 90 tablet 0 DULoxetine HCl 30 MG Capsule Delayed Release Sprinkle Take 30 mg by mouth daily. 90 capsule 1 Glucose Blood (Blood Glucose Test) strip Test two times a day & as needed for symptoms of irregular blood glucose. No facility-administered medications prior to visit. 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 TB (pulmonary tuberculosis) 195 Social History Socioeconomic History Marital status: Tobacco Use Smoking status: Never Smokeless tobacco: Never Substance and Sexual Activity Alcohol use: No Drug use: No Social Determinants of Health Financial Resource Strain: Low Risk (01/29/2023) Overall Financial Resource Strain (CARDIA) Difficulty of Paying Living Expenses: Not hard at all Food Insecurity: No Food Insecurity (01/29/2023) Hunger Vital Sign Worried About Running Out of Food in the Last Year: Never true Ran Out of Food in the Last Year: Never true Transportation Needs: No Transportation Needs (01/29/2023) PRAPARE - Transportation Lack of Transportation (Medical): No Lack of Transportation (Non-Medical): No Physical Activity: Sufficiently Active (01/29/2023) Exercise Vital Sign Days of Exercise per Week: 7 days Minutes of Exercise per Session: 60 min Stress: No Stress Concern Present (01/29/2023) [employer] [place] [employer] - Occupational Stress Questionnaire Feeling of Stress : Only a little Social Connections: Socially Integrated (01/29/2023) Social Connection and Isolation Panel [NHANES] Frequency of Communication with Friends and Family: More than three times a week Frequency of Social Gatherings with Friends and Family: More than three times a week Attends Worship Services: More than 4 times per year Active Member of Clubs or Organizations: Yes Attends Club or Organization Meetings: More than 4 times per year Marital Status: Intimate Partner Violence: Not At Risk (01/29/2023) Humiliation, Afraid, Rape, and Kick questionnaire Fear of Current or Ex-Partner: No Emotionally Abused: No Physically Abused: No Sexually Abused: No Housing Stability: Low Risk (01/29/2023) Housing Stability Vital Sign Unable to Pay for Housing in the Last Year: No Number of Places Lived in the Last Year: 1 Unstable Housing in the Last Year: No Past Surgical History: Procedure Laterality Date BLADDER SUSPENSION 1999 BLADDER SUSPENSION 2016 2nd, CHOLECYSTECTOMY KNEE ARTHROPLASTY Bilateral 2000 TOTAL ABDOMINAL HYSTERECTOMY Past Surgical History: Procedure Laterality Date BLADDER SUSPENSION 1999 BLADDER SUSPENSION 2016 2nd, CHOLECYSTECTOMY KNEE ARTHROPLASTY Bilateral 2000 TOTAL ABDOMINAL HYSTERECTOMY Family History Problem Relation Name Age of Onset Lung cancer Mother Depression Mother High Blood Pressure Father Hyperlipidemia Father High Blood Pressure Mother Hearing loss Father Heart attack Father Heart disease Father Coronary artery disease Father Objective BP (!) 142/62 Pulse 65 Ht 5' 3.5 (1.613 m) Wt 127 lb 6.4 oz (57.8 kg) SpO2 96% BMI 22.21 kg/m Physical Exam Constitutional: General: Not in acute distress. Appearance: Not ill-appearing or diaphoretic. HENT: Head: Normocephalic and atraumatic. Right Ear: Tympanic membrane, ear canal and external ear normal. Left Ear: Tympanic membrane, ear canal and external ear normal. Nose: Nose normal. No congestion or rhinorrhea. Mouth/Throat: Mouth: Mucous membranes are moist. Pharynx: Oropharynx is clear. No oropharyngeal exudate or posterior oropharyngeal erythema. Eyes: General: No scleral icterus. Extraocular Movements: Extraocular movements intact. Pupils: Pupils are equal, round, and reactive to light. Neck: Thyroid: No thyroid mass or thyromegaly. Vascular: No carotid bruit. Cardiovascular: Rate and Rhythm: Normal rate and regular rhythm. Pulses: Normal pulses. Heart sounds: Normal heart sounds. No murmur heard. No friction rub. Pulmonary: Effort: Pulmonary effort is normal. Breath sounds: Normal breath sounds. No wheezing, rhonchi or rales. Abdominal: General: Bowel sounds are normal. Palpations: Abdomen is soft. There is no hepatomegaly, splenomegaly or mass. Tenderness: There is no abdominal tenderness. Musculoskeletal: General: Normal range of motion. Joint swelling and stiffness noted to bilateral feet. Cervical back: Normal range of motion and neck supple. Right lower leg: No edema. Left lower leg: No edema. Lymphadenopathy: Cervical: No cervical adenopathy. Skin: General: Skin is warm and dry. Coloration: Skin is not jaundiced or pale. Findings: No erythema. Diabetic foot check: Normal strength and range of motion of toes, feet, and ankles bilaterally. No joint deformity. No cyanosis or clubbing. 100% sensation with 10 gram filament. Dorsalis pedis pulses intact bilaterally. Capillary refill at the toes was less than 2 seconds. Light touch sensation intact bilaterally. Hair growth present on feet and toes bilaterally. No skin breakdown, erythema, rub spots, blisters, scaling, or ulcers. No calluses or corns. Toenails thin and not ingrown. No evidence of fungal infection. Neurological: Mental Status: at baseline Motor: No weakness. Gait: Gait normal. Psychiatric: Mood and Affect: Mood normal. Behavior: Behavior normal. Thought Content: Thought content normal. Judgment: Judgment normal. Data Reviewed Labs: Imaging/Testing: CHONG Ballesteros CNP 01/29/2023 11:51 AM documented in this encounter [facility] 11-13-2022 History of Presen t illness Narrative Images from the original note were not included. 11/13/2022 Cj Gillis (: 1940) is a 82 y.o. female , Established patient, here for evaluation of the following chief complaint(s): Rectal Pain (Right buttock pain) ASSESSMENT/PLAN: 1. Injury due to fall, initial encounter - XR hip 4+ views right - May continue Tramadol as needed for pain. Can also take Tylenol/Motrin as needed. - Will notify of x-ray results. 2. Pain in joint of right hip - XR hip 4+ views right Follow up if symptoms worsen or fail to improve. SUBJECTIVE/OBJECTIVE: HPI - Cj is brought in today by her daughter with concerns of pain in her right buttock for the past 7-14 days. Does recalling falling and landing on her right buttock. Pain is aggravated by sitting on the area, especially riding in the car. Getting up and walking around does not appear to aggravate symptoms. Has taken her PRN Tramadol for pain and this helps some. Denies hitting her head or losing consciousness when she fell. Feels family is there at all times of the day as well as her . Declines assistance with home health coming to the home or assisted living. Review of Systems Musculoskeletal: Positive for arthralgias (right hip/buttock). Negative for gait problem. Skin: Negative for color change and wound. Vitals: 11/13/22 1322 BP: 122/60 Pulse: 70 SpO2: 96% Weight: 125 lb (56.7 kg) Height: 5' 2 (1.575 m) Body mass index is 22.86 kg/m . Physical Exam HENT: Head: Normocephalic and atraumatic. Eyes: Extraocular Movements: Extraocular movements intact. Pulmonary: Effort: Pulmonary effort is normal. Musculoskeletal: Legs: Neurological: Mental Status: She is alert. Mental status is at baseline. Motor: No weakness. Coordination: Coordination normal. Gait: Gait normal. An electronic signature was used to authenticate this note. CHONG Ballesteros CNP 11/13/2022 1:46 PM documented in this encounter [facility] 11-01-2022 Telephone encounter Note Rx sent to mail order per request. Follow up as scheduled. [facility] 11-01-2022 Miscellaneous Notes Rx sent to mail order per request. Follow up as scheduled. Prescription Request: Last medication check: 07/22/21 Last physical exam: 01/27/22 Next scheduled appointment: 01/29/23 Last date of refill on this medication 05/31/22 [facility] sent in request for refill on the duloxetine but all of her maintenance medications have as of late been going to the mail order. My chart message sent to family to confirm where they want this sent. documented in this encounter [facility] 11-01-2022 Telephone encounter Note Prescription Request: Last medication check: 07/22/21 Last physical exam: 01/27/22 Next scheduled appointment: 01/29/23 Last date of refill on this medication 05/31/22 [facility] 10-31-2022 Telephone encounter Note [facility] sent in request for refill on the duloxetine but all of her maintenance medications have as of late been going to the mail order. My chart message sent to family to confirm where they want this sent. [facility] 10-09-2022 Telephone encounter Note Rx sent. Follow up as scheduled. [facility] 10-09-2022 Miscellaneous Notes Rx sent. Follow up as scheduled. Prescription Request: Last medication check: 07/22/21 Last physical exam: 01/27/22 Next scheduled appointment: 01/29/23 Last date of refill on this medication 10/13/21 documented in this encounter [facility] 10-09-2022 Telephone encounter Note Prescription Request: Last medication check: 07/22/21 Last physical exam: 01/27/22 Next scheduled appointment: 01/29/23 Last date of refill on this medication 10/13/21 [facility] 07-10-2022 Telephone encounter Note Prescription Request: Last medication check: 07/22/21 Last physical exam: 01/27/22 Next scheduled appointment: 07/31/22 CSA on file (date): na Last urine drug screen: na Last date of refill on this medication 07/14/21 90 day 3 refills on both meds [facility] 07-10-2022 Miscellaneous Notes Prescription Request: Last medication check: 07/22/21 Last physical exam: 01/27/22 Next scheduled appointment: 07/31/22 CSA on file (date): na Last urine drug screen: na Last date of refill on this medication 07/14/21 90 day 3 refills on both meds documented in this encounter [facility] 06-15-2022 Note Addended by: CARLOS HERRON on: 06/15/2022 11:54 AM Modules accepted: Orders [facility] 06-15-2022 Miscellaneous Notes Addended by: CARLOS HERRON on: 06/15/2022 11:54 AM Modules accepted: Orders Orders signed Urine dropped off please sign. documented in this encounter [facility] 06-12-2022 Telephone encounter Note Orders signed [facility] 06-12-2022 Telephone encounter Note Urine dropped off please sign. [facility] 04-24-2022 Telephone encounter Note Rx sent. Follow up as scheduled. [facility] 04-24-2022 Miscellaneous Notes Rx sent. Follow up as scheduled. Prescription Request: Last medication check: 07/22/2021 Last physical exam: 01/27/2022 Next scheduled appointment: 07/31/2022 CSA on file (date): none Last urine drug screen: none Last date of refill on this medication 10/26/2021 90 days 1 refill documented in this encounter [facility] 04-24-2022 Telephone encounter Note Prescription Request: Last medication check: 07/22/2021 Last physical exam: 01/27/2022 Next scheduled appointment: 07/31/2022 CSA on file (date): none Last urine drug screen: none Last date of refill on this medication 10/26/2021 90 days 1 refill [facility] 01-10-2021 History of Presen t illness Narrative Radiology Service Progress Note PATIENT NAME: Cj Gillis DATE OF SERVICE: January 10, 2021 TIME: 11:58 AM PATIENT IDENTITY VERIFICATION COMPLETED USING TWO (2) IDENTIFIERS: Name and Date of confirmed by patient verbally. FALL SCREENING: Has the patient had 2 falls in the last year or 1 fall with injury or currently using an Ambulatory Assistive Device (Walker, Cane, Wheelchair, Crutches, etc.)? No PATIENT GENDER DATA: Female. status: : No status: NO. PATIENT RELEVANT IMPLANT DATA REVIEWED: Not Applicable RADIOLOGY DEPARTMENT: General X-ray: Exam(s) Completed: Rib X-Ray: Right PERIPHERAL IV DATA: Not applicable SIGNED BY: RT Apurva(R) January 10, 2021 11:58 AM documented in this encounter [facility] Evaluation note Diagnosis Injury due to fall, initial encounter documented in this encounter [facility] Work Phone: Evaluation note* Diagnosis Proctocolitis- Primary Ulcerative (chronic) proctitis Leukocytosis, unspecified type documented in this encounter [facility] Work Phone: Evaluation noteNo assessment information available [facility] Work Phone: Evaluation note* Diagnosis Mild episode of recurrent major depressive disorder (HCC) [facility] Diagnosis Leukocytes in urine- Primary Other nonspecific finding on examination of urine Other microscopic hematuria [facility] Diagnosis Injury due to fall, initial encounter- Primary Pain in joint of right hip [facility]* Diagnosis Unspecified fall, initial encounter [facility]* Diagnosis Unspecified fall, initial encounter- Primary [facility] Diagnosis Diabetic polyneuropathy associated with diabetes mellitus due to underlying condition ([facility])- Primary Callus of foot Corns and callosities Arthritis of foot Unspecified arthropathy, ankle and foot [facility]* Diagnosis Mild episode of recurrent major depressive disorder (HCC)- Primary Mixed hyperlipidemia Dysuria Urinary frequency Essential hypertension, benign [facility]* Diagnosis Medicare annual wellness visit, subsequent- Primary Mixed Alzheimer's and vascular dementia ([facility]) Type 2 diabetes mellitus without complication, without long-term current use of insulin ([facility]) ([facility]) Encounter for diabetic foot exam ([facility]) Atherosclerosis of coronary artery without angina pectoris, unspecified vessel or lesion type, unspecified whether wales or transplanted heart Essential hypertension, benign Osteoarthritis, unspecified osteoarthritis type, unspecified site Chronic pain of both feet 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 Mixed incontinence urge and stress (male)(female) Hematuria, unspecified type Leukocytes in urine Other nonspecific finding on examination of urine [facility] Diagnosis Chronic pain of both feet Osteoarthritis, unspecified osteoarthritis type, unspecified site [facility] Diagnosis Hematuria, unspecified type Leukocytes in urine Other nonspecific finding on examination of urine [facility]* Diagnosis Recurrent UTI- Primary Urinary tract infection, site not specified [facility]* Diagnosis Mixed Alzheimer's and vascular dementia (HCC)- Primary [facility]* Diagnosis Mixed Alzheimer's and vascular dementia (HCC) [facility] Diagnosis Type 2 diabetes mellitus without complication, without long-term current use of insulin ([facility]) (HCC)- Primary Diabetic polyneuropathy associated with diabetes mellitus due to underlying condition ([facility]) ([facility]) Encounter for diabetic foot exam ([facility]) Mixed Alzheimer's and vascular dementia ([facility]) Osteoarthritis, unspecified osteoarthritis type, unspecified site Chronic pain of both feet Mild episode of recurrent major depressive disorder ([facility]) Mixed stress and urge urinary incontinence Mixed incontinence urge and stress (male)(female) Overactive bladder Hypertonicity of bladder [facility] Diagnosis Type 2 diabetes mellitus with hyperlipidemia ([facility]) ([facility])- Primary Diabetic polyneuropathy associated with diabetes mellitus due to underlying condition ([facility]) ([facility]) Encounter for diabetic foot exam ([facility]) Mixed Alzheimer's and vascular dementia ([facility]) Osteoarthritis, unspecified osteoarthritis type, unspecified site Chronic pain of both feet Mild episode of recurrent major depressive disorder ([facility]) Mixed stress and urge urinary incontinence Mixed incontinence urge and stress (male)(female) Overactive bladder Hypertonicity of bladder [facility] Diagnosis Rib injury Sprain of ribs [facility] Diagnosis Acute cough- Primary Other fatigue Increased frequency of urination Urinary frequency Urinary frequency Atherosclerosis of coronary artery of wales heart without angina pectoris, unspecified vessel or lesion type Essential hypertension, benign documented in this encounter [facility]* Diagnosis Acute cough- Primary Other fatigue Increased frequency of urination Urinary frequency Urinary frequency Medicare annual wellness visit, subsequent- Primary Type 2 diabetes mellitus without complication, without long-term current use of insulin ([facility]) ([facility]) Diabetic polyneuropathy associated with diabetes mellitus due to underlying condition ([facility]) ([facility]) Encounter for diabetic foot exam ([facility]) Atherosclerosis of coronary artery of wales heart without angina pectoris, unspecified vessel or lesion type Essential hypertension, benign Mixed hyperlipidemia Statin declined Mixed Alzheimer's and vascular dementia ([facility]) Osteoarthritis, unspecified osteoarthritis type, unspecified site Chronic pain of both feet Mild episode of recurrent major depressive disorder ([facility]) Recurrent UTI Urinary tract infection, site not specified Mixed stress and urge urinary incontinence Mixed incontinence urge and stress (male)(female) Overactive bladder Hypertonicity of bladder Urinary frequency Screening for deficiency anemia Screening for other and unspecified deficiency anemia documented in this encounter [facility]* Diagnosis Acute cough- Primary Other fatigue Increased frequency of urination Urinary frequency Urinary frequency Type 2 diabetes mellitus with hyperlipidemia ([facility]) (HCC) Diabetic polyneuropathy associated with diabetes mellitus due to underlying condition ([facility]) ([facility]) documented in this encounter [facility]* Diagnosis Urinary frequency- Primary documented in this encounter [facility] Discharge instructions* Attachments The following attachments cannot be sent through Care Everywhere. * Colitis ([place]) documented in this [facility] Work Phone: Hospital Discharge instructions Additional Instructions Use [id number] Lidoderm patches (4%) daily as well as incentive spirometer every hour while awake to help prevent a secondary pneumonia.[facility] Work Phone: Instructions* Attachments The following attachments cannot be sent through Care Everywhere. * Preventing Falls in Older Adults ([place]izen [place]) documented in this [facility] for referral (narrative)* Consultation (Routine) - Pending Review Specialty Diagnoses / Procedures Referred By Yang dinh Referred To Contact Geriatric Medicine Diagnoses Mixed Alzheimer's and vascular dementia (HCC) Procedures [place] OFFICE/OUTPATIENT [facility] 60 MINUTES Rubina Moore APRN - [employer] [address] [place] [address] [facility] [address] [place] [address] Referral ID Status Reason Start Date Expiration Date Visits Requested Visits Authorized [id number] Pending Review Specialty Services Required 06/22/2023 06/21/2024 1 1 [facility] for referral (narrative)* Diagnostic Procedure Only (Urgent) - Closed Specialty Diagnoses / Procedures Referred By Yang dinh Referred To Contact XR IMAGING Diagnoses Rib injury Procedures XR RIBS/CHEST 3V AP RIB/OBLS/CXR RT X-RAY RIBS, CHEST 3+ VW Shraddha Menjivar APRN.[employer] [address] [place] [address] [place] [address] Referral ID Status Reason Start Date Expiration Date V isits Requested Visits Authorized [id number] Closed Auto-Generate d Referral 01/10/2021 02/09/2022 1 1 [facility]No reason for referral information [facility]WA[facility] Work [facility]: Reason for visit Narrative* Diagnostic Procedure Only (Urgent) - Closed Specialty Diagnoses / Procedures Referred By Contac t Referred To Contact XR IMAGING Diagnoses Rib injury Procedures XR RIBS/CHEST 3V AP RIB/OBLS/CXR RT X-RAY RIBS, CHEST 3+ VW Shraddha Menjivar, TESTS SUPERINTENDENT.[employer] [address] [place] [address] [place] [address] Referral ID Status Reason Start Date Expiration Date V isits Requested Visits Authorized Closed Auto-Generate d Referral 01/10/2021 02/09/2022 1 1 [facility] Reason for Referral Status Reason Specialty Diagnoses / Procedures Referre d By Contact Referred To Contact Closed Radiology Diagnoses Memory loss Procedures CT Head WO Contrast Yeyo Jackson MD [address] [address] Assessments Diagnosis Memory loss Advance Directives No Advanced Directives Records FoundLatest Code Status on File Code Status Date Activated Date Inactivated Comments Full Code 10/21/2020 8:18 PM Advance Directive Response Recorded Date/ Time Advance Directives No March 3:30pm Living Will No April 27 12:52pm Power of Scrap Hooker No April 27, 2022 12:52pm Advance Directive Response Recorded Date/ Time Advance Directives No March 4:30pm Date Activated Date Inactivated Comments 08/06/2024 6:27 PM 08/08/2024 8:32 PM Question Answer Comments DNR Order Discussed With: Surrogate Decision Shankar er Surrogate Decision Maker Name: Sukumar Gillis Surrogate Decision Maker Surrogate Decision Maker Relationship: Spouse Date Activated Date Inactivated Comments 08/06/2024 6:24 PM 08/06/2024 6:26 PM Question Answer Comments DNR Order Discussed With: Surrogate Decision Shankar er Date Activated Date Inactivated Comments 08/28/2024 12:44 PM 08/28/2024 6:53 PM Question Answer Comments Order Discussed With: Patient and Surrogate Deci kashif Maker Date Activated Date Inactivated Comments 08/06/2024 6:27 PM 08/08/2024 8:32 PM Question Answer Comments DNR Order Discussed With: Surrogate Decision Shankar er Surrogate Decision Maker Name: Sukumar Gillis Surrogate Decision Maker Surrogate Decision Maker Relationship: Spouse Date Activated Date Inactivated Comments 08/06/2024 6:24 PM 08/06/2024 6:26 PM Question Answer Comments DNR Order Discussed With: Surrogate Decision Shankar er Summary Purpose Family History No Family History Records Found Relationship Condition Age at Onset Recorded Date/T rosario Unknown Family History?No pertinent history Unkno wn September 19, 2013 3:57pm Family History?No pertinent history Unkno wn September 19, 2013 3:57pm Relationship Condition Age at Onset Recorded Date/T rosario Unknown Family History?No pertinent history Unkno wn September 19, 2013 4:57pm Family History?No pertinent history Unkno wn September 19, 2013 4:57pm Chief Complaint and Reason for Visit Chief Complaint FALL Chief Complaint Admit Date SKILLED NURSING LAB WORK May 12 5:00am SKILLED NURSING LAB WORK June 12, 2024 6 :15am Additional Source Comments Reason for Visit (unrecogniz ed section and content) Reason Comments Abdominal Pain Reason Comments Med Refill Reason Onset Date Comments Med Refill 10/31/2022 Reason Comments Rectal Pain Right buttock pain Reason Comments Established Patient Follow Up Diabetic Foot Check Reason Comments Blood Work Depression Health Maintenance Declines flu vaccine , has not had an RSV vaccine Reason Comments Medicare Annual Wellness Visit Initial M AWPt is sleeping more Pt states that she has had a DEXA scan,Pt refuses Covid 19, zoster, Influenza, and pneumococcal vaccines Reason Comments Dementia Specialty Diagnoses / Procedures Referred By Yang t Referred To Contact Geriatric Medicine Diagnoses Mixed Alzheimer's and vascular dementia (HCC) Procedures MS OFFICE/OUTPATIENT NEW HIGH MDM 60 MINUTES Rubina Moore S, TESTS SUPERINTENDENT - [employer] [address] [place] [address] [place] [address] [facility] [address] [place] [address] Referral ID Status Reason Start Date Expiration Date V isits Requested Visits Authorized [id number] Closed Specialty Services Required 06/22/2023 06/21/2024 1 1 Reason Onset Date Comments Appointment 07/05/2023 New Patient Reason Comments Medication Check Hypertension Hyperlipidemia Anxiety Reason Onset Date Comments Advice Only 01/31/2024 Reason Comments Medicare Annual Wellness Visit [facility] t Health Maintenance Dexa- declines Zoste r- declines Tdap- declines Pna- declines Covid- not done Blood Work Reason Onset Date Comments Urinary Problem 06/12/2022 Ordered Prescriptions (unrec ognized section and content) Prescription Sig Dispensed Refills Start Date End Da te amoxicillin-clavulanate (AUGMENTIN) 875-125 MG per tablet Take 1 tablet by mouth 2 times daily for 10 days 20 tablet 0 10/21/2020 10/31/2020 Scheduled Active and Recently Administ ered Medications (unrecognized section and content) Medication Order 10/19/2020 10/20/2020 10/21/2020 acetaminophen (TYLENOL) tablet 500 mg 500 mg, Oral, 2 TIMES DAILY, First dose on Lisbeth 10/21/20 at 2100, Maximum dose of acetaminophen is 4000 mg from all sources in 24 hours. 2100 (Due) aspirin tablet 325 mg 325 mg, Oral, DAILY, First dose on Sun10/22/20 at 0900 betaxolol (KERLONE) tablet 5 mg 5 mg, Oral, DAILY, First dose on Sun10/21/20 at 2018, No therapeutic substitution for this medication, please ask patient to supply from home. Product can be verified by pharmacy for in-patient use. 2018 (Due) cetirizine (ZYRTEC) tablet 10 mg 10 mg, Oral, DAILY, First dose on Sun10/22/20 at 0900, Substituted for Loratadine (CLARITIN). diphenhydrAMINE (BENADRYL) injection 25 mg (COMPLETED) 25 mg, Intravenous, ONCE, On Lisbeth 10/21/20 at 1332, For 1 dose 1358 (Given - Provid er: Alec Argueta RN) DULoxetine (CYMBALTA) extended release capsule 30 mg 30 mg, Oral, DAILY, First dose on Sun10/22/20 at 0900 enalapril (VASOTEC) tablet 10 mg 10 mg, Oral, DAILY, First dose on Sun10/22/20 at 0900 enoxaparin (LOVENOX) injection 40 mg 40 mg, Subcutaneous, DAILY, First dose on Sun10/22/20 at 0900 escitalopram (LEXAPRO) tablet 5 mg 5 mg, Oral, DAILY, First dose on Sun10/22/20 at 0900 famotidine (PEPCID) injection 20 mg (COMPLETED) 20 mg, Intravenous, ONCE, On Lisbeth 10/21/20 at 1332, For 1 dose, Dilute with 5-10 mL 0.9% sodium chloride. Administer over 2 minutes. 1359 (Given - Provid er: Alec Argueta RN) famotidine (PEPCID) tablet 20 mg 20 mg, Oral, DAILY, First dose on Sun10/22/20 at 0900 linagliptin (TRADJENTA) tablet 5 mg 5 mg, Oral, DAILY, First dose on Sun10/22/20 at 0900, Substitution for Januvia methylPREDNISolone sodium (SOLU-MEDROL) injection 125 mg (COMPLETED) 125 mg, Intravenous, ONCE, On Lisbeth 10/21/20 at 1332, For 1 dose 1358 (Given - Provid er: Alec Argueta RN) piperacillin-tazobactam (ZOSYN) 3375 mg in dextrose 50 mL IVPB extended infusion (premix) 3,375 mg, Intravenous, EVERY 8 HOURS, First dose on Lisbeth 10/21/20 at 2100, Until Discontinued 2100 (Due) rosuvastatin (CRESTOR) tablet 10 mg 10 mg, Oral, NIGHTLY, First dose on Lisbeth 10/21/20 at 2100 2100 (Due) sodium chloride flush 0.9 % injection 5-40 mL 5-40 mL, Intravenous, EVERY 12 HOURS SCHEDULED (2 times per day), First dose on Lisbeth 10/21/20 at 2100, For Line Patency: Peripheral IV = 5 mL; Midline or Central Line = 10 mL/lumen. If following IV push medication, administer flush at same rate as the IV push. Flush volume is determined by type of infusion therapy being given. For non-viscous solutions use: Peripheral IV = 5 mL Midline or Central Line = 10 mL/lumen For viscous solutions (i.e. blood components, parenteral nutrition, contrast media, or after obtaining blood sample) use: Peripheral IV = 10 mL Midline or Central Line = 20 mL/lumen 2100 (Due) Continuous Medication Order 10/19/2020 10/20/2020 10/21/2020 0.9 % sodium chloride infusion Intravenous, at 75 mL/hr, CONTINUOUS, Starting on Lisbeth 10/21/20 at 2018 2018 (Due) PRN Medication Order 10/19/2020 10/20/2020 10/21/2020 0.9 % sodium chloride infusion 25 mL, Intravenous, at 100 mL/hr, PRN, If patient receiving piggyback infusions without ordered maintenance IV fluids or with frequent/long duration piggyback infusions, Starting on Lisbeth 10/21/20 at 2016, Administer at the same rate as the piggyback being infused. acetaminophen (TYLENOL) suppository 650 mg(Linked Group 1) 650 mg, Rectal, EVERY 6 HOURS PRN, Pain Mild (1-3), Fever, For temp greater than 100.4 F (38 C), Starting on Sun10/21/20 at 2016, Administer if oral route cannot be used. acetaminophen (TYLENOL) tablet 650 mg(Linked Group 1) 650 mg, Oral, EVERY 6 HOURS PRN, Pain Mild (1-3), Fever, For temp greater than 100.4 F (38 C), Starting on Sun10/21/20 at 2016, Maximum dose of acetaminophen is 4000 mg from all sources in 24 hours. ondansetron (ZOFRAN) injection 4 mg(Linked Group 2) 4 mg, Intravenous, EVERY 6 HOURS PRN, Nausea, Vomiting, Starting on Sun10/21/20 at 2016, Administer if oral route cannot be used. ondansetron (ZOFRAN-ODT) disintegrating tablet 4 mg(Linked Group 2) 4 mg, Oral, EVERY 8 HOURS PRN, Nausea, Vomiting, Starting on Sun10/21/20 at 2016 polyethylene glycol (GLYCOLAX) packet 17 g 17 g, Oral, DAILY PRN, Constipation, Starting on Sun10/21/20 at 2016, First line therapy for constipation sodium chloride flush 0.9 % injection 5-40 mL 5-40 mL, Intravenous, PRN, Line Care, After every IV line use, Starting on Sun10/21/20 at 2016, For Line Patency: Peripheral IV = 5 mL; Midline or Central Line = 10 mL/lumen. If following IV push medication, administer flush at same rate as the IV push. Flush volume is determined by type of infusion therapy being given. For non-viscous solutions use: Peripheral IV = 5 mL Midline or Central Line = 10 mL/lumen For viscous solutions (i.e. blood components, parenteral nutrition, contrast media, or after obtaining blood sample) use: Peripheral IV = 10 mL Midline or Central Line = 20 mL/lumen Linked Groups Order Group 1: acetaminophen (TYLENOL) tablet 650 mgJump to med 650 mg, Oral, EVERY 6 HOURS PRN, Pain Mild (1-3), Fever, For temp greater than 100.4 F (38 C), Starting on Lisbeth 10/21/20 at 2016
Maximum dose of acetaminophen is 4000 mg from all sources in 24 hours.
Or acetaminophen (TYLENOL) suppository 650 mgJump to med 650 mg, Rectal, EVERY 6 HOURS PRN, Pain Mild (1-3), Fever, For temp greater than 100.4 F (38 C), Starting on Lisbeth 10/21/20 at 2016
Administer if oral route cannot be used.
Group 2: ondansetron (ZOFRAN-ODT) disintegrating tablet 4 mgJump to med 4 mg, Oral, EVERY 8 HOURS PRN, Nausea, Vomiting, Starting on Lisbeth 10/21/20 at 2016 Or ondansetron (ZOFRAN) injection 4 mgJump to med 4 mg, Intravenous, EVERY 6 HOURS PRN, Nausea, Vomiting, Starting on Lisbeth 10/21/20 at 2016
Administer if oral route cannot be used.
INFORMATION SOURCE (unrecogn ized section and content) DATE CREATED AUTHOR 10/28/2020 [facility] [employer] [facility] DATE CREATED AUTHOR AUTHOR'S ORGANIZ ATION 03/06/2023 [facility] DATE CREATED AUTHOR AUTHOR'S ORGANIZ ATION 02/12/2024 [facility] [employer] [facility] DATE CREATED AUTHOR AUTHOR'S ORGANIZ ATION 08/28/2024 [facility] DATE CREATED AUTHOR AUTHOR'S ORGANIZ ATION 09/03/2024 [facility] DATE CREATED AUTHOR AUTHOR'S ORGANIZ ATION 09/04/2024 [facility] Care Teams (unrecognized sec tion and content) Team Status: Active Member Role Status Dates Dr. Raeann Parsons MD Family Provider Active Dr. Raeann Parsons MD Primary Care Provider Active Team Status: Inactive Member Role Status Dates Dr. Raeann Parsons MD Primary Care Provider Active Dr. Chani Elkins DO Emergency Provider Active Manager Equity Relationship Specialty Start Date End Date Carlos Herron MD [address] [place] [address] PCP - General 01/01/20 Manager Equity Relationship Specialty Start Date End Date Carlos Herron MD [address] [place] [address] PCP - General 01/01/20 Manager Equity Relationship Specialty Start Date End [place] [address] PCP - General 01/01/20 Manager Equity Relationship Specialty Start Date End [place] [address] PCP - General 01/01/20 Manager Equity Relationship Specialty Start Date [place] [address] PCP - General 01/01/20 Manager Equity Relationship Specialty Start Date End Date Rubina Moore, TESTS SUPERINTENDENT - [employer] [address] [place] [address] PCP - General Nurse Practitioner Family 11/13/22 Manager Equity Relationship Specialty Start Date End Date Carlos Herron MD [address] [place] [address] PCP - General Family Medicine 11/13/22 Manager Equity Relationship Specialty Start Date End Date Carlos Herron MD [facility] [place] [address] PCP - General Family Medicine 11/13/22 Manager Equity Relationship Specialty Start Date End Date Carlos Herron MD [facility] [place] [address] PCP - General Family Medicine 11/13/22 Manager Equity Relationship Specialty Start Date End Date Carlos Herron [address] [place] [address] [place] [address] PCP - General Family Medicine 08/18/20 Neelam (Pharmacist)Kandice [address] [place] [address] Pharmacist Pharmacy 07/04/18 Christel Cerda [facility] [address] [place] [address] Pharmacist Pharmacy 08/15/18 Manager Equity Relationship Specialty Start Date End Date Carlos Herron MD [facility] [place] [address] PCP - General Family Medicine 11/13/22 Manager Equity Relationship Specialty Start Date End Date Carlos Herr[facility] [place] [place] [address] PCP - General Family Medicine 11/13/22 Manager Equity Relationship Specialty Start Date End Date Carlos Herron MD [facility] [place] [address] PCP - General Family Medicine 11/13/22 Manager Equity Relationship Specialty Start Date End Date Carlos Herron MD [address] [facility] [place] [address] PCP - General Family Medicine 11/13/22 Manager Equity Relationship Specialty Start Date End Date Carlos Herron MD [address] [facility] [place] [address] PCP - General Family Medicine 11/13/22 Manager Equity Relationship Specialty Start Date End Date Carlos Herron MD [address] [facility] [place] [address] PCP - General Family Medicine 11/13/22 Manager Equity Relationship Specialty Start Date End Date Carlos Herron MD [address] [facility] [place] [address] PCP - General Family Medicine 11/13/22 Manager Equity Relationship Specialty Start Date End Date Carlos Herron MD [address] [facility] [place] [address] PCP - General Family Medicine 11/13/22 Manager Equity Relationship Specialty Start Date End Date Carlos Herron MD [address] [facility] [place] [address] PCP - General Family Medicine 11/13/22 Manager Equity Relationship Specialty Start Date End Date Carlos Herron MD [address] [facility] [place] [address] PCP - General Family Medicine 11/13/22 Manager Equity Relationship Specialty Start Date End Date Carlos Herron MD [address] [facility] [place] [address] PCP - General Family Medicine 11/13/22 Manager Equity Relationship Specialty Start Date End Date Carlos Herron [address] [facility] [place] [address] PCP - General Family Medicine 08/18/20 Kandice Richter [address] [place] [address] Pharmacist Pharmacy 07/04/18 Christel Cerda RP [address] [place] [address] Pharmacist Pharmacy 08/15/18 Manager Equity Relationship Specialty Start Date End Date Carlos Herron MD [facility] [place] [address] PCP - General Family Medicine 11/13/22 Manager Equity Relationship Specialty Start Date End Date Carlos Herron MD [facility] [place] [address] PCP - General Family Medicine 11/13/22 Manager Equity Relationship Specialty Start Date End Date Carlos Herr[facility] [place] [address] PCP - General Family Medicine 11/13/22 Manager Equity Relationship Specialty Start Date End Date Carlos Herron MD [address] [facility] [place] [address] PCP - General Family Medicine 11/13/22 Manager Equity Relationship Specialty Start Date End Date Carlos Herron MD [address] [place] [address] PCP - General Family Medicine 11/13/22 Manager Equity Relationship Specialty Start Date End Date Carlos Herron MD [address] [place] [address] PCP - General Family Medicine 11/13/22 Manager Equity Relationship Specialty Start Date End Date Carlos Herron MD [address] [place] [address] PCP - General 01/01/20 Manager Equity Relationship Specialty Start Date End Date Carlos Herron MD [address] [place] [address] PCP - General 01/01/20 Team Status: Active Member Role Status Dates Dr. Raeann Parsons MD Family Provider Active Dr. Carlos Herron MD Primary Care Provider Active Team Status: Active Member Role Status Dates Dr. Carlos Herron MD Primary Care Provider Active Start: May 12, 2024 Demario RODRIGUEZ Attending Provider Active Star t: May 12, 2024 Team Status: Inactive Member Role Status Dates Dr. Carlos Herron MD Primary Care Provider Active Start: June 12, 2024 End: June 12, 2024 Demario RODRIGUEZ Attending Provider Active Star t: June 12, 2024 End: June 12, 2024 Demario RODRIGUEZ Referring Provider Active Star t: June 12, 2024 End: June 12, 2024 Manager Equity Relationship Specialty Start Date End Date Carlos Herron [address] [place] [id number] PCP - General Family Medicine 08/18/20 Kandice Richter [address] [place], [place] [id number] Pharmacist Pharmacy 07/04/18 [facility] [address] [place], [place] [phone] Pharmacist Pharmacy 08/15/18 Manager Equity Relationship Specialty Start Date End Date Carlos Herron [place], [place] [id number] PCP - General Family Medicine 08/18/20 Kandice Richter [address] [place], [place] [id number] Pharmacist Pharmacy 07/04/18 [facility] [address] [place], [place] [phone] Pharmacist Pharmacy 08/15/18 Goals (unrecognized section and content) Goals may be documented in a n alternate sectionGoals may be documented in an alternate section Source Comments (unrecognize d section and content) In the event this informatio n is protected by the Federal Confidentiality of Alcohol and Drug Abuse Patient Records regulations: The Federal rules restrict any use of the information to criminally investigate or prosecute any alcohol or drug abuse patient.[facility] the event this information is protected by the Federal Confidentiality of Alcohol and Drug Abuse Patient Records regulations: The Federal rules restrict any use of the information to criminally investigate or prosecute any alcohol or drug abuse patient.[facility] Hospital[facility] the event this information is protected by the [facility] Confidentiality of Alcohol and Drug Abuse Patient Records regulations: The Federal rules restrict any use of the information to criminally investigate or prosecute any alcohol or drug abuse patient.[facility] the event this information is protected by the Federal Confidentiality of Alcohol and Drug Abuse Patient Records regulations: The Federal rules restrict any use of the information to criminally investigate or prosecute any alcohol or drug abuse patient.[facility] FOR RECORDS PERTAINING TO PATIENTS WHO ARE OR HAVE BEEN ENROLLED IN A CHEMICAL DEPENDENCY/SUBSTANCEABUSE PROGRAM, SOME INFORMATION MAY BE OMITTED. This clinical summary was aggregated from multiple sources. Caution should be exercised in using it in the provision of clinical care. This summary normalizes information from multiple sources, and as a consequence, information in this document may materially change the coding, format and clinical context of patient data. In addition, data may be omitted in some cases. CLINICAL DECISIONS SHOULD BE BASED ON THE PRIMARY CLINICAL RECORDS. [employer] [facility]. provides no warranty or guarantee of the accuracy or completeness of information in this document.
[2024-09-08 07:39] LABS: Hematocrit 32.8 % (37-47); Hemoglobin 10.5 g/dL (12.0-15.0); Mean Corpuscular Hgb 30.2 pg (27.0-32.0); Mean Corpuscular Volume 94.3 fL (81-99); Mean Platelet Vol. 10.8 fl (6.2-12.0); Platelet Count 253 K/mm3 (150-450); RBC Distribution Width CV 12.7 % (11.6-14.6); RBC Distribution Width SD 43.1 fl (35.1-43.9); Red Blood Count 3.48 M/mm3 (4.2-5.4); White Blood Count 9.3 K/mm3 (4.4-11.0)
[2024-09-08 07:53] LABS: Cholesterol 172 mg/dL (<=200); High Density Lipoprotein 30 mg/dL; Low Density Lipoprotein Calc. 102 mg/dL; Triglycerides 201 mg/dL; Very Low Density Lipoprotein 40 mg/dL (5-40); cholesterol:hdl ratio screen 5.77
[2024-09-08 08:14] LABS: Hemoglobin A1c 7.2 % (<=5.6)
[2024-09-08 08:59] LABS: Thyroid Stim Hormone (TSH) 0.836 uIU/mL (0.300-4.200)
[2024-09-08 09:03] LABS: ALB/GLOB Ratio 1.1 RATIO (0.9-2.4); AST(SGOT) 14 U/L (<=31); Alanine Aminotransfer ALT/SGPT 5 U/L (<=34); Albumin, Serum 3.4 g/dL (3.4-4.8); Alkaline Phosphatase 72 U/L (35-104); Anion Gap 12 (5-15); BUN 33 mg/dL (4-19); BUN/Creat Ratio 35.1 RATIO (10-20); Calcium,Total 9.5 mg/dL (7.6-11.0); Carbon Dioxide 25.6 mmol/L (21.0-32.0); Chloride 103 mmol/L (98-108); Creatinine, Serum 0.93 mg/dL (0.70-1.20); EST Glomerular Filtration Rate 61 (>60); Glucose 147 mg/dL (70-99); Potassium 4.6 mmol/L (3.3-5.1); Protein, Total 6.5 g/dL (5.9-8.4); Sodium Level 140 mmol/L (133-145); Total Bilirubin < 0.15 mg/dL (0.00-1.30)
== END ==
LOC: OLS.ACW400 05:00
PROVIDERS: PCP Family Medicine; Visit Provider Family Medicine
DX: G30.8 Other Alzheimer's disease (principal); E11.40 Type 2 diabetes mellitus with diabetic neuropathy, unspecified; E78.5 Hyperlipidemia, unspecified; I25.10 Atherosclerotic heart disease of native coronary artery without angina pectoris
CPT/HCPCS: 36415; 80053; 80061; 83036; 84443; 85027

== ENCOUNTER → 2024-09-11 05:00 | Outpatient (REF) | payer MEDICARE, SELFPAY ==
--- OUTSIDE RECORDS SUMMARY | 2024-09-11 03:58 | XMS RPT_ITS | CCD ---
Author Organization [facility] Care Team Providers Care Key Account Representative Name Role Phone [place] GAMES DEALER, Kenyetta Jett Unavailable Carlos Herron Primary Care Provider Germaine NAPIER, Carlos Cali Primary Care Provider Carlos Herron MD Primary Care Provider Carlos Herron MD Primary Care Provider Carlos Herron MD Primary Care Provider Oscar SCHWARZ - Rubina PALACIOS Primary Care Provider Carlos Herron MD Primary Care Provider Neelam (Pharmacist)RanulfoKandice Unavailable 1( [phone] [facility], Christel Unavailable Carlos Herron Primary Care Provider LYNETTE SANTIAGO Attending Unavailable CARLOS HERRON Primary Care Unavailabl e Ranulfo Richtersie Unavailable Carlos Herron Primary Care Provider RUBINA [...] Provider Unavailabl e CHAPARRO NAVA Admitting Unavailable GERMAINE, [facility] Primary Care Unavailtracey e BARNEY MARIE Attending Unavailable REY ROWAN Admitting Unavailable REY ROWAN Attending Unavailable GERMAINE [facility] Primary Care Unavailabl e GERMAINE, [facility] Primary Care Unavailabl e LYNETTE FULLER Attending Unavailable Germaine, Carlos Primary Care Unavailable Demario Abraham Attending Unavailable Germaine, Carlos Primary Care Unavailable Herb Holm Attending Unavailable Demario Abraham Attending Unavailable Germaine, Carlos Primary Care Unavailable Germaine, Carlos Primary Care Unavailable Demario Abraham Attending Unavailable Demario Abraham Referring Unavailable Germaine, Carlos Primary Care Unavailable Demario Abraham Referring Unavailable Demario Abarham Attending Unavailable Germaine Carlos Primary Care Unavailable Demario Abraham [facility] Demario Abraham Attending Unavailable Demario Abraham Referring Unavailable Raeann Parsons Primary Care Unavailable Barry Garcia Attending Unavailable Allergies Allergy Classification Reported Allergen(s) [...] sources) acetaminophen / HYDROcodone drug allergy 11-10-19 [facility] (3 sources) acetaminophen / oxyCODONE drug allergy 11-10-19 17 [facility] (20 sources) Acetaminophen / HYDROcodone Drug Allergy 11-10-19 [facility] Work Phone: (7 sources) atorvastatin Drug Allergy 04-28-19 10 Other: See Comments [facility] Work Phone: (12 sources) celecoxib; Translations: [CELECOXIB] Drug Allergy 08-04-19 04 Nausea [facility] Work Phone: (5 sources) Hmg-Coa Reductase Inhibitors (Statins) Propensity to adverse reactions to drug 09-06-19 17 Other (See Comments) [facility] Work Phone: (20 sources) Morphine; Translations: [MORPHINE] Drug Allergy 08-04-19 04 Other (See Comments), Other, GI Upset [facility] Work Phone: (12 sources) rofecoxib; Translations: [ROFECOXIB] Drug Allergy 08-04-19 04 Nausea [facility] Work Phone: (4 sources) Other Propensity to adverse reactions 08-04-19 04 Other (See Comments) [facility] Work Phone: (2 sources) Opioids - Morphine Analogues Propensity to adverse reactions 04-27-19 23 Other, Nausea [facility] (20 sources) celecoxib Drug Allergy 08-04-19 04 [facility] (20 sources) HMG-CoA reductase inhibitor Drug Intolerance 04-28-19 10 Other [facility] (20 sources) rofecoxib Drug Allergy 08-04-19 04 [facility] (7 sources) Pethidine analog; Translations: [OPIOIDS-MEPERIDI NE AND RELATED] Propensity to adverse reactions 08-04-19 04 GI Upset [facility] Work Phone: (3 sources) atorvastatin; Translations: [ATORVASTATIN CALCIUM] Drug Allergy 04-28-19 10 [facility] (1 source) celecoxib Drug Allergy 01-01-20 24 [facility] Repository (1 source) rofecoxib Drug Allergy 01-01-20 24 [facility] Repository (1 source) Opioids - Morphine Analogues Drug allergy (disorder) 01-01-20 [facility] Rep[facility] (1 source) Ynebpox-Nyh-Vhh Reductase Inhibitor Drug allergy (disorder) 01-01-20 [facility] Repository NEGATED: Highlighted row has been ruled out!Unclassified (1 source) Other Propensity to adverse reactions 08-04-19 04 Other (See Comments) [facility] Medications Current Medications Medication Drug Class(es) Dates Sig (Normalized) Sig (Original) acetaminophen 500 mg oral tablet (20 sources) Start: 10-21-2020 take 500 mg by mouth twice daily, then take 4000 mg by mouth every twenty-four hours 500 mg, Oral, 2 TIMES DAILY, First dose on Lisbeth 10/21/20 at 2100 Maximum dose of acetaminophen is [...] Take 1 tablet by peter once daily. aspirin 325 mg oral tablet (20 sources) Platelet Aggregation Inhibitor, Nonsteroidal Anti-inflammatory Drug Start: 10-23-19 take 325 mg by mouth once daily 325 mg, Oral, DAILY, First dose on Sun10/22/20 at 0900 Start: 11-09-2016 ASPIR-81 81 MG [facility] ASPIRIN [id number] Kenyetta Arguelles GAMES DEALER Start: 11-09-2016 ASPIR-81 81 MG [facility] ASPIRIN [id number] Kenyetta S Kindra GAMES DEALER Start: 01-31-2016 take 1 tablet by peter [...] 5 mg, Oral, DAILY, First dose on Lisbeth 10/21/20 at 2018 No therapeutic substitution for this medication, please ask patient to supply from home. Product can be verified by pharmacy for in-patient use. Start: 10-28-2019 End: 10-09-2022 betaxolol (Kerlone) 10 MG ta blet TAKE ONE-HALF (1/2) TABLET DAILY 0 10/13/2021 Active Start: 11-09-2016 take 1 tablet by peter once daily BETAXOLOL HCL 10 MG TABS One tablet by mouth daily BETAXOLOL HCL [id number] Kenyetta Jett Kindra GAMES DEALER take 5 mg by mouth once daily [...] and fax results to Dr. Sprague at [phone] 1 Each 07/16/2018 Active Comment on above: If patient presents with allergic reaction, please check tryptase level and fax results to Dr. Sprague at [phone] DULoxetine 60 mg delayed release oral capsule (20 sources) Serotonin and Norepinephrine Reuptake Inhibitor Start: 025 take 1 capsule by mouth once daily [...] on above: Take 1 capsule by mo ut twice daily. DULoxetine HCl 30 MG CSDR [...] Start: 07-21-2021 take 1 tablet by peter th in the morning enalapril (Vasotec) 10 MG tablet Take 1 tablet by mouth in the morning. 0 07/21/2021 Active Start: 10-22-2020 take 10 mg by mouth once daily 10 mg, Oral, DAILY, First dose on Sun10/22/20 at 0900 Start: 11-09-2016 take 1 tablet by peter th once daily enalapril (VASOTEC) 10 mg tablet [...] S upply Disposable ([facility] INCONTINENCE PADS) [facility] Indications: Urinary incontinence, unspecified type 100 each [...] Start: 02-04-2024 take 2 tablets by mo [facility] twice daily metFORMIN XR (Glucophage-XR) 500 MG [...] Discontinued Start: 11-09-2023 take 2 tablets by [facility] twice daily metFORMIN XR (Glucophage-XR) 500 MG [...] DAY 270 tablet 1 01/18/2023 Active Start: 04-24-2023 metFORMIN XR ( Glucophage-XR) 500 MG 24 [...] Start: 06-17-2019 take 3 tablets by mo ut once daily at breakfast metFORMIN ER (GLUCOPHAGE XR) 500 mg 24 hr tablet Take 3 tablets by mouth daily with breakfast. May increase to 2000mg (4 tablets) daily as tolerated. 300 tablet 3 06/17/2019 Active Start: 11-09-2016 take 1 tablet by peter once daily METFORMIN HCL 500 MG TABS One tablet by mouth daily METFORMIN HCL [id number] Kenyetta Arguelles GAMES DEALER Start: 09-19-2013 take 1 tablet by peter th three times daily at mealtime Metformin 500 MG tablet Active 500 mg PO 3 TIMES DAILY WITH MEALS September 19, 2013 12:00am metFORMIN (GLUCO PHAGE-XR) 500 MG extended release tablet Take 500 mg by mouth 2 times daily TWICE DAILY 0 Active Comment on above: Take 3 tablets by mo [facility] daily with breakfast. May increase to 2000mg [...] tablet Indications: Atherosclerosis of coronary artery of [place] heart without angina pectoris, unspecified vessel or lesion type , Essential hypertension, benign Take 0.5 tablets (12.5 mg) by mouth daily. Do not crush or chew. 02/01/2024 Active Start: 06-11-2023 End: 01-28-2024 metoprolol succinate XL (Top rol-XL) 25 MG 24 hr tablet Indications: Atherosclerosis of coronary artery of [place] heart without angina pectoris, unspecified vessel or [...] Active Start: 11-03-2019 take 1 tablet by peter every eight hours as needed phenazopyridine (PYRIDIUM) 200 mg tablet Take 1 tablet by mouth three times daily as needed. 6 tablet 11/03/2019 Active Comment on above: Take 1 tablet by peter three times daily as needed. polyethylene glycol 3350 33429 mg powder for oral solution (1 source) [...] Take 1 tablet by peter once daily. predniSONE 20 mg oral tablet [...] tablet Indications: Atherosclerosis of coronary artery of [place] heart without angina pectoris, unspecified vessel or [...] Peptidase 4 Inhibitor Start: 09-06-19 End: 10-12-19 24 take 1 tablet by mouth once daily Sitagliptin Phosphate (Januvia) 100 MG tablet Active 100 mg PO DAILY September 05, 2016 12:00am Comment on above: Take 1 tablet by [facility] once daily. 3 ml sodium chloride 9 [...] Start: 11-09-2016 take 2 tablets by mo [facility] twice daily TRAMADOL HCL 50 MG TABS Two tablets by mouth twice daily TRAMADOL HCL [id number] Kenyetta Arguelles NP Start: 09-19-2013 [facility] six hours as needed for pain [...] 25 mg take 1 tablet by peter every eight hours as needed diphenhydrAMINE (BENADryl) 12.5 MG chewa ble tablet Chew 12.5 mg every 8 hours as needed for itching (hives- take with Prednisone). Active take 1 capsule by mo [facility] every four hours as needed diphenhydrAMINE (BENADRYL) [...] Coronary atherosclerosis; Translations: [Atherosclerotic heart disease of [place] coronary artery without angina pectoris] Onset: 08-15-2013 [...] EVALon 025 ANES POSTPROC EVAL HNO ID: [id number] Author: CHEYANNE GOMEZ MD Service: Anesthesiology Author Type: Anesthesiologist Type: Anesthesia Postprocedure Evaluation Filed: 08/28/2024 15:44 Note Text: POST ANESTHESIA EVALUATION NOTE : 1940 Procedure Summary Date: 08/28/24 Room / [place]: [place] Anesthesia Start: 1353 Anesthesia Stop: 1444 [...] August 28, 2024 TIME: 3:44 PM CSN: [id number] [facility] ANES PRE-OPon 08-28-2024 ANES PRE-OP HNO ID: [id number] Author: ALEC PERRIN MD Service: Anesthesiology Author Type: Anesthesiologist Type: Anesthesia Preprocedure Evaluation Filed: 08/28/2024 12:44 Note Text: ANESTHESIOLOGY DAY OF SURGERY NOTE : 1940 Procedure Information Date/Time: 08/28/24 1230 Procedures: LASER CYSTOURETHROSCOPY W/ URETEROSCOPY AND/OR PYELOSCOPY W/ LITHOTRIPSY MASTER PULSE HOLMIUM (Left: Renal) CYSTOURETHROSCOPY W/ REMOVE URETERAL STENT (Left: Ureter) INSERTION STENT URETERAL (Left: Ureter) Location: [place]04 [place] Surgeons: Rey Rowan MD Estimated body [...] and consent discussed: yes. Patient / Responsible Alliance Party agrees to proceed: yes Patient / Surrogate [...] and fax results to Dr. Sprague at [phone] Lancets lancets Test Two times a day. Insulin Dep? No E11.9 DM 2 alcohol swabs (ALCOHOL PADS (more content not included)... [facility] CALCULI ANALYSISon 5 CALCULI COLOR [employer] [facility] Comment on above: Order Comment: Speci men Type: CALCULUS SPECIMENOrdering Facility: [facility] Address: [address] [place] [address] Performed By: #### C SA ####[facility] [id number] [place] [address] [place] CALCULI COMPOSITION [facility] Comment on above: Order Comment: Speci men Type: CALCULUS SPECIMENOrdering Facility: [facility] Address: [address] [place] [address] Result Comment: 50% Calcium Oxalate Monohydrate 30% Calcium Oxalate Dihydrate 20% Uric Acid This test was developed, and its performance characteristics determined by the [facility] Department of Pathology and Laboratory Medicine. It has not been cleared or approved by the FDA. The [facility] Department of Pathology and Laboratory Medicine is regulated under CLIA as qualified to perform high-complexity testing. This test is used for clinical purposes. It should not be regarded as investigational or for research. Performed By: #### C SA ####[facility] [id number] [address] [place] CALCULI SIZE AND WT Multiple pieces 0.02 47 GRAMS [facility] Comment on above: Order Comment: Speci men Type: CALCULUS SPECIMENOrdering Facility: [facility] Address: [address] [place] [address] Performed By: #### C SA ####[facility] [id number] [address] [place] CALCULI TYPE Calculi or Calculus Normal [facility] Comment on above: Order Comment: Speci men Type: CALCULUS SPECIMENOrdering Facility: [facility] Address: [address] [place] [address] Performed By: #### C ####[facility] [id number] [place] [id number] [facility] CNPTiffanie 08-28-2024 CNPN Telephone (JUANIS) CJ GILLIS ([id number]) 1940 F Date Time Provider Department 08/28/24 [...] Date Reviewed: 08/28/2024 Reviewed by: Radha Toscano, INDIRA - Fully Assessed Prescriptions as of 08/28/2024 [...] and fax results to Dr. Sprague at [phone] - Lancets lancets Test Two times a [...] Encounter Status:Closed by REY ROWAN on 08/28/24 [facility] OPERATIVE NOon 08-28-2024 OPERATIVE NO HNO ID: [id number] Author: REY ROWAN MD Service: Urology Author Type: Physician Type: Operative Report Filed: 08/28/2024 14:39 Note Text: UROLOGY SERVICE OPERATIVE NOTE LOG ID: [id number] Surgery/Procedure Date: 08/28/2024 Incision/Procedure Start Time: 2:14 PM Incision Close/Procedure End Time: 2:32 PM Patient Age: [age] year old Surgeon(s)/Proceduralist(s) and Customer Experience Leader(s): Surgeons and Role: * Rey Rowan MD - Primary * Christel Alvares MD - Resident - Assisting Physician Customer Experience Leader: Lesia Gallagher PA-C Anesthesia: General Preop Diagnosis: Pre-Op Diagnosis Codes: * Renal calculus, left [N20.0] Postop Diagnosis: Same as preoperative diagnosis Procedure: - Cystoscopy - Left stent removal - Left ureteroscopy - Laser lithotripsy - Basket stone extraction Estimated Blood Loss: 0 mls Accidental punctures or Lacerations: None Cultures: None Findings: Stone Cheney: 5 mm distal left ureter Lithotripsy Technique: fragmenting and basket extraction Laser: 365 micron Quanta 100W holmium laser laser Fragmentation: 1 J and 5 Hz, virtual basket; 1 J and 10 Hz, Magneto Irrigation: [place] bag; max pressure gravity Fluoroscopy: No fluoroscopy [...] to bleeding, infection and potential ureteral injury. alf risk of potential ureteral stricture was also [...] confirm the patient, procedure and laterality. A 22-Bulgarian cystoscope was advanced through the urethra and [...] into pieces which were extracted with the N'Mendon and sent for analysis. Ureter was patent [...] Gillis DATE: 08/28/2024 TIME: 2:35 PM PAGER: [phone] [facility] 08-27-2024 [facility] Telephone ([place]) CJ GILLIS ([id number]) 1940 F Date Time Provider Department 08/27/24 JET SMART During your visit today, we recorded the following information about you: Jet Smart LPN 08/27/2024 1:57 PM Signed Nurse at [facility] ([facility]) requesting medication instructions for tomorrow's surgery. Pt did not see PACC-seen in ED. Can you help? Norma Pleitez, INDIRA 08/27/2024 2:19 PM Signed [facility] PATIENT PREOPERATIVE INSTRUCTIONS Dr. Rey Rowan has scheduled you for your procedure at this surgery center: [facility]: [phone] -- [address] [facility] [address]. Please read below carefully for your personalized [...] office. If you are currently using a [id number]-iecq injectable or oral medication for diabetes or [...] Advance Directive, please fax a copy to [phone] or email to for it to be [...] once daily. - (more content not included)... Normal [facility] 08-22-2024 [facility] Telephone ([employer]) CJ GILLIS ([id number]) 1940 F Date Time Provider Department 08/22/24 REY ROWAN During your visit today, we recorded the following information about you: Elliscarlos Jaxon 08/22/2024 10:12 AM Signed Patient had surgery on 08/06/24, cysto stent insertion Please advise for follow up. Patient's daughter, Guerita@#[phone]--ok to leave message. Thank you Radha Cummins 08/22/2024 3:42 PM Signed August 22, 2024 3:41 PM Patient is scheduled for PAT on : N/A Surgery at [place] with Dr. Rowan on 08/28/2024 Patient is aware of date, time, location, and pre op instructions. Patient had no further questions at this time. Surgical information has been sent to patient via [employer]. Radha Mancia Allergies As of Date: 08/22/2024 [...] and fax results to Dr. Sprague at [phone] - Lancets lancets Test Two times a [...] Status:Closed by JAXON HANSEN on 08/22/24 Normal [facility] ANES POSTPROC EVALon 025 ANES POSTPROC EVAL HNO ID: [id number] Author: DEMARIO NICHOLSON MD Service: Anesthesiology Author Type: Physician Type: Anesthesia Postprocedure Evaluation Filed: 08/08/2024 08:05 Note Text: POST ANESTHESIA EVALUATION NOTE : 1940 Procedure Summary Date: 08/06/24 Room / Location: [place] Anesthesia Start: 1833 Anesthesia Stop: 1906 [...] August 08, 2024 TIME: 8:04 AM CSN: [id number] Normal [facility] Basic metabolic 2000 panelon 08-08-2024 Anion gap [Moles/Vol] 12 mmol/L Normal 8-15 [facility] Comment on above: Order Comment: Speci men Type: BLOOD SPECIMEN [facility] Address: [address] [place] [address] Performed By: #### 3 2693-4 #### [facility] CLIA [id number] [address] [place] [address] [place] Calcium [Mass/Vol] 9.1 mg/dL Normal 8.5-10.2 [facility] Comment on above: Order Comment: Speci men Type: BLOOD SPECIMEN Ordering Facility: [facility] Address: [address] [place] [address] Performed By: #### 3 2693-4 #### [facility] CLIA [id number] [address] [place] Chloride [Moles/Vol] 102 mmol/L Normal 98-107 [facility] Comment on above: Order Comment: Speci men Type: BLOOD SPECIMEN [facility]ing Facility: [facility] Address: [address] [place] [address] Performed By: #### 3 2693-4 #### [facility] CLIA [id number] [address] [place] [address] [place] CO2 [Moles/Vol] 24 mmol/L Normal 22-30 [facility] Comment on above: Order Comment: Speci men Type: BLOOD SPECIMEN [facility]ing Facility: [facility] Address: [address] [place] [address] Performed By: #### 3 2693-4 #### [facility] CLIA [id number] [address] [place] Creatinine [Mass/Vol] 0.67 mg/dL Normal 0.58-0.96 [facility] Comment on above: Order Comment: Speci men Type: BLOOD SPECIMEN [facility]ing Facility[facility] Address: [address] [place] [address] Performed By: #### 3 2693-4 #### [facility] CLIA [id number] [address] [place] [address] [place] Creatinine and Glomerular filtration rate.predicted panel (S/P/Bld) 86 mL/min/1.73m??? Normal >=60 [facility] Comment on above: Order Comment: Alex ruffin Type: BLOOD SPECIMEN [facility] Address: [address] [place] [address] Result Comment: Ashli mated Glomerular Filtration Rate [...] GFR. Performed By: #### 3 2693-4 #### [facility] CLIA [id number] [address] [place] [address] [place] Glucose [Mass/Vol] 151 mg/dL High 74-99 [facility] Comment on above: Order Comment: Alex ruffin Type: BLOOD SPECIMEN [facility] Address: [address] [place] [address] Result Comment: The Citizen [place] Diabetes Association (ADA) provides guidance for cutoff [...] Standards of Medical Care in Diabetes 2016, Citizen [place] Diabetes Association. Diabetes Care. 2016.39(Suppl 1). Performed By: #### 3 2693-4 #### [facility] CLIA [id number] [address] [place] [address] [place] Potassium [Moles/Vol] 3.5 mmol/L Low 3.7-5.1 [facility] Comment on above: Order Comment: Speci men Type: BLOOD SPECIMEN [facility] Address: [address] [place] [address] Performed By: #### 3 2693-4 #### [facility] CLIA [id number] [address] STATES OF [facility] Sodium [Moles/Vol] 138 mmol/L Normal 136-144 [facility] Comment on above: Order Comment: Speci men Type: BLOOD SPECIMEN [facility] Address: [address] [place] [address] Performed By: #### 3 2693-4 #### [facility] CLIA [id number] [address] OF [facility] Urea nitrogen [Mass/Vol] 12 mg/dL Normal 7-21 [facility] Comment on above: Order Comment: Speci men Type: BLOOD SPECIMEN Ordering Facility: [facility] Address: [address] [place] [address] Performed By: #### 3 2693-4 #### [facility] CLIA [id number] [address] OF [facility] CBC panel Auto (Bld)on 08-08 Erythrocyte distribution width (RBC) [Ratio] 11.9 % Normal 11.5-15.0 [facility] Comment on above: Order Comment: Speci men Type: BLOOD SPECIMEN Ordering Facility: [facility] Address: [address] [place] [address] Performed By: #### 5 8410-2 #### [facility] CLIA [id number] [address] Hematocrit (Bld) [Volume fraction] 34.3 % Low 36.0-46.0 [facility] Comment on above: Order Comment: Speci men Type: BLOOD SPECIMEN Ordering Facility: [facility] Address: [address] [place] [address] Performed By: #### 5 8410-2 #### [facility] CLIA [id number] [address] Hemoglobin (Bld) [Mass/Vol] 10.8 g/dL Low 11.5-15.5 [facility] Comment on above: Order Comment: Speci men Type: BLOOD SPECIMEN Ordering Facility: [facility] Address: [address] [place] [address] Performed By: #### 5 8410-2 #### [facility] CLIA [id number] [address] MCH (RBC) [Entitic mass] 29.9 pg Normal 26.0-34.0 [facility] Comment on above: Order Comment: Speci men Type: BLOOD SPECIMEN Ordering Facility: [facility] Address: [address] [place] [address] Performed By: #### 5 8410-2 #### [facility] CLIA [id number] [address] MCHC (RBC) [Mass/Vol] 31.5 g/dL Normal 30.5-36.0 [facility] Comment on above: Order Comment: Speci men Type: BLOOD SPECIMEN Ordering Facility: [facility] Address: [address] [place] [address] Performed By: #### 5 8410-2 #### [facility] CLIA [id number] [address] MCV (RBC) [Entitic vol] 95.0 fL Normal 80.0-100.0 [facility] Comment on above: Order Comment: Speci men Type: BLOOD SPECIMEN Ordering Facility: [facility] Address: [address] [place] [address] Performed By: #### 5 8410-2 #### [facility] CLIA [id number] [address] Nucleated RBC (Bld) [#/Vol] 10*3/uL Normal <0.01 [facility] Comment on above: Order Comment: Speci men Type: BLOOD SPECIMEN Ordering Facility: [facility] Address: [address] [place] [address] Performed By: #### 5 8410-2 #### [facility] CLIA [id number] [address] Platelet mean volume (Bld) [Entitic vol] 10.6 fL Normal 9.0-12.7 [facility] Comment on above: Order Comment: Speci men Type: BLOOD SPECIMEN Ordering Facility: [facility] Address: [address] [place] [address] Performed By: #### 5 8410-2 #### [facility] CLIA [id number] [address] [place] Platelets (Bld) [#/Vol] 221 10*3/uL Normal 150-400 [facility] Comment on above: Order Comment: Speci men Type: BLOOD SPECIMEN Ordering Facility: [facility] Address: [address] [place] [address] Performed By: #### 5 8410-2 #### [facility] CLIA [id number] [address] STATES [facility] RBC (Bld) [#/Vol] 3.61 10*6/uL Low 3.90-5.20 [facility] Comment on above: Order Comment: Speci men Type: BLOOD SPECIMEN Ordering Facility: [facility] Address: [address] [place] [address] Performed By: #### 5 8410-2 #### [facility] CLIA [id number] [address] STATES [place] WBC (Bld) [#/Vol] 8.95 10*3/uL Normal 3.70-11.00 [facility] Comment on above: Order Comment: Speci men Type: BLOOD SPECIMEN Ordering Facility: [facility] Address: [address] [place] [address] Performed By: #### 5 8410-2 #### [facility] CLIA [id number] [address] CNDSon 08-08-2024 CNDS HNO ID: [id number] Author: BARNEY MARIE MD Service: Hospital Medicine [...] Attending Provider: Barney Marie MD Primary Service: [facility] MY CONDITION AT DISCHARGE: Stable [...] of AANDO x 1 who presented to [facility] ED for renal calculus and fall. Concern for UTI prior to presentation for which she received antibiotics at and also at ER prior to transfser to [facility]. Imaging on admission with L sided stone [...] cultures FOLLOW-UP APPOINTMENTS ALREADY SCHEDULED WITH A [facility] PROVIDER: No future appointments. ALLERGIES Allergen [...] E11.9 DM (more content not included)... Normal [facility] CONSULT PROGon 08-08-2024 CONSULT PROG HNO ID: [id number] Author: ART MEANS APRN.COTTAGE CHEESE MAKER Service: Wound/Ostomy Author Type: Nurse Practitioner Type: Consult Progress Note Filed: 08/08/2024 13:34 Note Text: Summary: In-patient wound care WOUND CARE SERVICE CONSULT [employer] DELTA SYSTEM NOTE SERVICE DATE: 08/08/2024 SERVICE TIME: 1044 REASON FOR CONSULT: upper back wounds. Wound Consult (From admission, onward) Start Ordered 08/07/24 1030 WOUND CARE CONSULT ([place], [place]) ONCE Electronically Signed By: Barney Marie MD [ ] 08/07/24 1027 My final recommendations will be communicated back to the requesting physician by way of shared Medical record or letter to requesting physician via US mail. CHIEF COMPLAINT: upper back wounds. Subjective HISTORY OF PRESENT ILLNESS: Ms. Gillis is a 84 year old female who is seen today with Sadi Delgado, Wound/bookkeeping clerk, and presented to hospital with complaints of renal calculus and fall. PMH DM2, CAD, HTN, DVT, PE, HLD. PERTINENT REVIEW OF SYSTEMS: GENERAL: denies fever PAIN ASSESSMENT: endorses 5/10 pain to upper back SKIN: wounds on [...] (Oral) Resp (more content not included)... Normal [facility] Magn[facility] [Mass/Vol] 1.7 mg/dL Normal 1.7-2.3 [facility] Comment on above: Order Comment: Speci men Type: BLOOD SPECIMEN Ordering Facility: [facility] Address: [address] [place] [address] Performed By: #### 3 2693-4 #### [facility] CLIA [id number] 1 [place] [address] [place] Phosphate SerPl-mCncon 08-08 Phosphate [Mass/Vol] 2.6 mg/dL Low 2.7-4.8 [facility] Comment on above: Order Comment: Speci men Type: BLOOD SPECIMEN Ordering Facility: [facility] Address: [address] [place] [address] Performed By: #### 3 2693-4 #### [facility] CLIA [id number] 1 [place] [id number] [place] THERAPY NTon 08-08-2024 THERAPY NT HNO ID: [id number] Author: ARACELY CHOWDARY, PT Service: Physical Therapy Author Type: Physical Therapist Type: Therapy (PT/OT/Speech/Resp) Filed: 08/08/2024 09:57 Note Text: Physical Therapy Evaluation Summary SERVICE DATE: 08/08/2024 SERVICE TIME: 0837 to 0901 ROOM: [place] [address] PT 6 Clicks Score: 13 DISCHARGE RECOMMENDATIONS [facility] Recommended Discharge Disposition Comments: with continued therapies [...] COURSE Patient admitted following unwitnessed fall at [facility], with imaging negative for fracture but finding of left UVJ stone. Also with UTI/sepsis. Relevant Past Medical History: CAD, HTN,OA, urge incontinence, h/o DVT/PE; Dementia-Ox1 baseline. HOME LIVING Patient Lives With: Facility Care ([facility] care; [facility]) Assistance Available: 24-Hour (staff and spouse) Entry To Home: No Stairs Tub/Shower Type: walk in with seat/bars ; staff assists Laundry: Provided for patient Equipment Owned: Walker- Wheeled, Wheelchair- Manual PRIOR FUNCTIONAL LEVEL Required Assistance Assistance Required With: Ambulation, Cleaning, Laundry, Meals, Medication Management, Safety, Self Care, Shopping, Transportation Patient resides in memory care unit at [facility]. Generally ambulates without device, or with wheeled [...] Weakness (generalized) TREATMENT INTERVENTIONS Evaluation, Therapeutic Activity (72534) $ Evaluation-Moderate (13641) Billed Units: 1 unit Therapeutic Activity (62177) Treatment Minutes: 9 $ Therapeutic Activity (01087) Billed Units: 1 unit Education regarding importance [...] August 08, 2024 TIME: 9:55 AM Normal [facility] Basic metabolic 2000 panelon 08-07-2024 Anion gap [Moles/Vol] 8 mmol/L Normal 8-15 [facility] Comment on above: Order Comment: Speci men Type: BLOOD SPECIMEN Ordering Facility: [facility] Address: [address] [place] [address] Performed By: #### 3 2693-4 #### [facility] CLIA [id number] [address] STATES [place] Calcium [Mass/Vol] 8.5 mg/dL Normal 8.5-10.2 [facility] Comment on above: Order Comment: Speci men Type: BLOOD SPECIMEN Ordering Facility: [facility] Address: [address] [place] [address] Performed By: #### 3 2693-4 #### [facility] CLIA [id number] [address] [place] Chloride [Moles/Vol] 101 mmol/L Normal 98-107 [facility] Comment on above: Order Comment: Speci men Type: BLOOD SPECIMEN Ordering Facility: [facility] Address: [address] [place] [address] Performed By: #### 3 2693-4 #### [facility] CLIA [id number] [address] STATES OF [facility] CO2 [Moles/Vol] 27 mmol/L Normal 22-30 [facility] Comment on above: Order Comment: Speci men Type: BLOOD SPECIMEN Ordering Facility: [facility] Address: [address] [place] [address] Performed By: #### 3 2693-4 #### [facility] CLIA [id number] [address] [place] Creatinine [Mass/Vol] 0.80 mg/dL Normal 0.58-0.96 [facility] Comment on above: Order Comment: Speci men Type: BLOOD SPECIMEN Ordering Facility: [facility] Address: [address] [place] [address] Performed By: #### 3 2693-4 #### [facility] CLIA [id number] [address] Creatinine and Glomerular filtration rate.predicted panel (S/P/Bld) 73 mL/min/1.73m??? Normal >=60 [facility] Comment on above: Order Comment: Speci men Type: BLOOD SPECIMEN Ordering Facility: [facility] Address: [address] [place] [address] Result Comment: Ashli mated Glomerular Filtration Rate [...] GFR. Performed By: #### 3 2693-4 #### [facility] CLIA [id number] 1 [place] [address] [place] Glucose [Mass/Vol] 153 mg/dL High 74-99 [facility] Comment on above: Order Comment: Alex ruffin Type: BLOOD SPECIMEN Ordering Facility: [facility] Address: [address] [place] [address] Result Comment: The Citizen Of [place] Diabetes Association (ADA) provides guidance for cutoff [...] Standards of Medical Care in Diabetes 2016, Citizen [place] Diabetes Association. Diabetes Care. 2016.39(Suppl 1). Performed By: #### 3 2693-4 #### [facility] CLIA [id number] 1 [place] [address] [place] Potassium [Moles/Vol] 3.8 mmol/L Normal 3.7-5.1 [facility] Comment on above: Order Comment: Alex ruffin Type: BLOOD SPECIMEN Ordering Facility: [facility] Address: [address] [place] [address] Performed By: #### 3 2693-4 #### [facility] CLIA [id number] [address] Sodium [Moles/Vol] 136 mmol/L Normal 136-144 [facility] Comment on above: Order Comment: Speci men Type: BLOOD SPECIMEN Ordering Facility: [facility] Address: [address] [place] [address] Performed By: #### 3 2693-4 #### [facility] CLIA [id number] [address] [place] Urea nitrogen [Mass/Vol] 16 mg/dL Normal 7-21 [facility] Comment on above: Order Comment: Speci men Type: BLOOD SPECIMEN Ordering Facility: [facility] Address: [address] [place] [address] Performed By: #### 3 2693-4 #### [facility] CLIA [id number] [address] CBC panel Auto (Bld)on 08-07 Erythrocyte distribution width (RBC) [Ratio] 12.3 % Normal 11.5-15.0 [facility] Comment on above: Order Comment: Speci men Type: BLOOD SPECIMEN Ordering Facility: [facility] Address: [address] [place] [address] Performed By: #### 3 2693-4 #### [facility] CLIA [id number] [address] OF [facility] Hematocrit (Bld) [Volume fraction] 30.1 % Low 36.0-46.0 [facility] Comment on above: Order Comment: Speci men Type: BLOOD SPECIMEN Ordering Facility: [facility] Address: [address] [place] [address] Performed By: #### 3 2693-4 #### [facility] CLIA [id number] [address] [place] Hemoglobin (Bld) [Mass/Vol] 9.8 g/dL Low 11.5-15.5 [facility] Comment on above: Order Comment: Speci men Type: BLOOD SPECIMEN Ordering Facility: [facility] Address: [address] [place] [address] Performed By: #### 3 2693-4 #### [facility] CLIA [id number] [address] MCH (RBC) [Entitic mass] 30.4 pg Normal 26.0-34.0 [facility] Comment on above: Order Comment: Speci men Type: BLOOD SPECIMEN Ordering Facility: [facility] Address: [address] [place] [address] Performed By: #### 3 2693-4 #### [facility] CLIA [id number] [address] MCHC (RBC) [Mass/Vol] 32.6 g/dL Normal 30.5-36.0 [facility] Comment on above: Order Comment: Speci men Type: BLOOD SPECIMEN Ordering Facility: [facility] Address: [address] [place] [address] Performed By: #### 3 2693-4 #### [facility] CLIA [id number] [address] MCV (RBC) [Entitic vol] 93.5 fL Normal 80.0-100.0 [facility] Comment on above: Order Comment: Speci men Type: BLOOD SPECIMEN Ordering Facility: [facility] Address: [address] [place] [address] Performed By: #### 3 2693-4 #### [facility] CLIA [id number] [address] Nucleated RBC (Bld) [#/Vol] 10*3/uL Normal <0.01 [facility] Comment on above: Order Comment: Speci men Type: BLOOD SPECIMEN Ordering Facility: [facility] Address: [address] [place] [address] Performed By: #### 3 2693-4 #### [facility] CLIA [id number] [address] Platelet mean volume (Bld) [Entitic vol] 10.7 fL Normal 9.0-12.7 [facility] Comment on above: Order Comment: Speci men Type: BLOOD SPECIMEN Ordering Facility: [facility] Address: [address] [place] [address] Performed By: #### 3 2693-4 #### [facility] CLIA [id number] [address] Platelets (Bld) [#/Vol] 196 10*3/uL Normal 150-400 [facility] Comment on above: Order Comment: Speci men Type: BLOOD SPECIMEN Ordering Facility: [facility] Address: [address] [place] [address] Performed By: #### 3 2693-4 #### [facility] CLIA [id number] [address] [place] RBC (Bld) [#/Vol] 3.22 10*6/uL Low 3.90-5.20 [facility] Comment on above: Order Comment: Speci men Type: BLOOD SPECIMEN Ordering Facility: [facility] Address: [address] [place] [address] Performed By: #### 3 2693-4 #### [facility] CLIA [id number] [address] [place] WBC (Bld) [#/Vol] 12.56 10*3/uL High 3.70-11.00 [facility] Comment on above: Order Comment: Speci men Type: BLOOD SPECIMEN Ordering Facility: [facility] Address: [address] [place] [address] Performed By: #### 3 2693-4 #### [facility] CLIA [id number] [address] [place] Lactate (Bld) [Moles/Vol]on 08-07-2024 Lactate [Moles/Vol] 1.0 mmol/L Normal 0.5-2.2 [facility] Comment on above: Order Comment: Speci men Type: BLOOD SPECIMEN Ordering Facility: [facility] Address: [address] [place] [address] Performed By: #### 3 2693-4 #### [facility] CLIA [id number] 1 [place] [address] [place] Magnesium SerPl-mCncon 08-07 Magnesium [Mass/Vol] 1.4 mg/dL Low 1.7-2.3 [facility] Comment on above: Order Comment: Speci men Type: BLOOD SPECIMEN Ordering Facility: [facility] Address: [address] [place] [address] Performed By: #### 3 2693-4 #### [facility] CLIA [id number] 1 [place] [id number] [place] THERAPY NTon 08-07-2024 THERAPY NT HNO ID: [id number] Author: DEVIN WALLACE OT/L Service: Occupational Therapy Author Type: Occupational Therapist Type: Therapy (PT/OT/Speech/Resp) Filed: 08/07/2024 15:01 Note Text: Occupational Therapy Evaluation Summary SERVICE DATE: 08/07/2024 SERVICE TIME: 1214 to 1246 ROOM: [place] [address] OT 6 Clicks Score: 13 DISCHARGE RECOMMENDATIONS F Recommended Discharge Disposition Comments: Recommend return home [...] return to [facility] to familiar memory care, [facility] unit for safety with therapy to progress ADL, mobility and cognitive/safety awareness in own home setting for best follow through. PRECAUTIONS Fall Risk, Lines/Tubes/Drains IV, external catheter CURRENT HOSPITAL COURSE Patient admitte following unwitnessed fall at [facility], with imaging negative for fracture but finding of left UVJ stone. Also with UTI/sepsis. Relevant Past Medical History: CAD, HTN,OA, urge incontinence, h/o DVT/PE; Dementia-Ox1 baseline. HOME LIVING Patient Lives With: Facility Care ([facility]/memory care; [facility]) Assistance Available: 24-Hour (staff and spouse) Entry To Home: No Stairs Tub/Shower Type: walk in with seat/bars ; staff assists Laundry: Provided for patient Equipment Owned: Walker- Wheeled, Wheelchair- Manual PRIOR FUNCTIONAL LEVEL Required Assistance Assistance Required With: Ambulation, Cleaning, Laundry, Meals, Medication Management, Safety, Self Care, Shopping, Transportation Patient resides in memory care unit at [facility]. Generally ambulates without device, or with wheeled [...] Follow Commands: Moderate Memory Deficits: Short Term, Spring Tier, Recall of Medical/Personal History, Recall of Recent Events Executive Function Deficits: Sequencing, Judgement, Insight to Deficits, Problem Solving, Safety Awareness THERAPY DIAGNOSIS Reduced mobility-other, Decreased activities of daily living (ADL), Muscle Weakness (generalized), Unsteadiness on feet, Signs and Symptoms Involving Cognitive Functions and Awareness, Lack of coordination-other TREATMENT INTERVENTIONS Evaluation, Self Intermediate Management (98321) Timed Code Treatment (minutes): 17 Skilled Treatment Time (minutes): 32 $ Evaluation - Moderate (03231) Billed Units: 1 unit Self Intermediate Management (07727) Treatment Minutes: 17 $ Self Intermediate Management (55189) Billed Units: 1 unit TRAINING AND EDUCATION PROVIDED Activity Adaptation/Compensatory Strategies, Bed Mobility, Benefits of In-Hospital Mobility, Command Following, Cognitive Stimulation Activities, Discharge Planning, Feeding Tasks, Grooming Tasks, Functional Mobility Involving ADLs, Insight into Deficits, Orientation, Memory/Attention, Patient Exercise/Therapy Program Support Needs, Precautions/Restrictions, Role of Occupational Therapy, Safety/Judgment, Sitting Balance to Improve [place] with ADLs/Self-Care, Standing Balance to Improve [place] with ADLs/Self-Care, Transfer - Sit to Stand [...] Level Additional Informa (more content not included)... [facility] HNO ID: [id number] Author: TERESSA FARMER Chaplain Service: Spiritual Care Author Type: Gravel Screener Type: Allied Health Filed: 08/06/2024 18:00 Note Text: SPIRITUAL CARE PROGRESS NOTE SERVICE DATE: 08/06/2024 SERVICE TIME: 5:30 PM As a auditing clerk I responded to a page from ED. Family is requesting spiritual care services. Met with PT and the daughter was at the bedside. They would like anointing from a regional production manager. A note was left in their inner mailbox. Read sacred text, sacred prayers, and prayed. To contact the Spiritual Care Department: Please call [phone]. SIGNATURE: Chaplain Allen PATIENT NAME: Cj Gillis DATE: August 06, 2024 TIME: 5:57 PM PAGER/CONTACT #: [phone] [facility] HNO ID: [id number] Author: DILMA MANCERA, CELSO Service: Radiology Author Type: Technologist Type: [facility] Filed: 08/06/2024 09:29 Note Text: Radiology Service [...] PATIENT PRESENTS WITH AN IMPLANTABLE OR ATTACHED FINANCIAL AID DIRECTOR: No RADIOLOGY DEPARTMENT: CT; Exam(s) Completed: Abdomen/Pelvis , Brain , and Spine PERIPHERAL IV DATA: Not applicable SIGNED BY: CELSO Cruz August 06, 2024 9:28 AM [facility] ANES PRE-OPon 08-06-2024 ANE PRE-OP HNO ID: [id number] Author: DEMARIO NICHOLSON MD Service: Anesthesiology Author [...] and consent discussed: yes. Patient / Responsible Alliance Party agrees to proceed: yes Patient / Surrogate [...] tryptase level (more content not included)... Normal [facility] Bacteria Bld Culton 08-07-19 25 Bacteria identified Cx Nom (Bld) CULTURE, BLOOD: No growth 5 days Normal [facility] Comment on above: Performed By: #### 6 00-7 ####[facility] [id number] [place] [address] [place] Bacteria Ur Culton 5 Bacteria identified Cx Nom (U) CULTURE, URINE: No growth (<1,000 CFU/ml) [facility] Comment on above: Performed By: #### 2 4356-8 ####[facility] [id number] [place] [address] [place]#### 630-4 ####[facility] [id number] [address], [place] [address] [place] CBC W Auto Differential pane l (Bld)on 08-06-2024 Basophils (Bld) [#/Vol] 0.07 10*3/uL Normal <0.11 [facility] Comment on above: Order Comment: Speci men Type: BLOOD SPECIMENOrdering Facility: [facility] Address: [address] [place] [address] Performed By: #### 5 7021-8 ####[facility] [id number] [place] [address] [place] Basophils/100 WBC (Bld) 0.4 % Normal [facility] Comment on above: Order Comment: Speci men Type: BLOOD SPECIMENOrdering Facility: [facility] Address: [address] [place] [address] Performed By: #### 5 7021-8 ####[facility] [id number] [address] Differential cell count method Nom (Bld) Auto Normal [facility] Comment on above: Order Comment: Speci men Type: BLOOD SPECIMENOrdering Facility: [facility] Address: [address] [place] [address] Performed By: #### 5 7021-8 ####[facility] [id number] [address] STATES OF [facility] Eosinophils (Bld) [#/Vol] 0.04 10*3/uL Normal <0.46 [facility] Comment on above: Order Comment: Speci men Type: BLOOD SPECIMENOrdering Facility: [facility] Address: [address] [place] [address] Performed By: #### 5 7021-8 ####[facility] [id number] [address] STATES [facility] Eosinophils/100 WBC (Bld) 0.2 % Normal [facility] Comment on above: Order Comment: Speci men Type: BLOOD SPECIMENOrdering Facility: [facility] Address: [address] [place] [address] Performed By: #### 5 7021-8 ####[facility]ORYCLIA [id number] [address] [place] Erythrocyte distribution width (RBC) [Ratio] 12.4 % Normal 11.5-15.0 [facility] Comment on above: Order Comment: Speci men Type: BLOOD SPECIMENOrdering Facility: [facility] Address: [address] [place] [address] Performed By: #### 5 7021-8 ####[facility]ORYCLIA [id number] [address] [place] Hematocrit (Bld) [Volume fraction] 38.4 % Normal 36.0-46.0 [facility] Comment on above: Order Comment: Speci men Type: BLOOD SPECIMENOrdering Facility: [facility] Address: [address] [place] [address] Performed By: #### 5 7021-8 ####[facility]ORYCLIA [id number] [address] [place] Hemoglobin (Bld) [Mass/Vol] 12.4 g/dL Normal 11.5-15.5 [facility] Comment on above: Order Comment: Speci men Type: BLOOD SPECIMENOrdering Facility: [facility] Address: [address] [place] [address] Performed By: #### 5 7021-8 ####[facility]ORYCLIA [id number] [address] [place] Immature granulocytes (Bld) [#/Vol] 0.12 10*3/uL High <0.10 [facility] Comment on above: Order Comment: Speci men Type: BLOOD SPECIMENOrdering Facility: [facility] Address: [address] [place] [address] Performed By: #### 5 7021-8 ####[facility]ORYCLIA [id number] [address] Immature granulocytes/100 WBC (Bld) 0.7 % Normal [facility] Comment on above: Order Comment: Speci men Type: BLOOD SPECIMENOrdering Facility: [facility] Address: [address] [place] [address] Performed By: #### 5 7021-8 ####[facility]ATORYCLIA [id number] [address] Lymphocytes (Bld) [#/Vol] 0.87 10*3/uL Low 1.00-4.00 [facility] Comment on above: Order Comment: Speci men Type: BLOOD SPECIMENOrdering Facility: [facility] Address: [address] [place] [address] Performed By: #### 5 7021-8 ####[facility]ATORYCLIA [id number] [address] Lymphocytes/100 WBC (Bld) 5.0 % Normal [facility] Comment on above: Order Comment: Speci men Type: BLOOD SPECIMENOrdering Facility: [facility] Address: [address] [place] [address] Performed By: #### 5 7021-8 ####[facility]ORATORYCLIA [id number] [address] [address] MCH (RBC) [Entitic mass] 29.7 pg Normal 26.0-34.0 [facility] Comment on above: Order Comment: Speci men Type: BLOOD SPECIMENOrdering Facility: [facility] Address: [address] [place] [address] Performed By: #### 5 7021-8 ####PIMENTEL LABORATORYCLIA [id number] [address] MCHC (RBC) [Mass/Vol] 32.3 g/dL Normal 30.5-36.0 [facility] Comment on above: Order Comment: Speci men Type: BLOOD SPECIMENOrdering Facility: [facility] Address: [address] [place] [address] Performed By: #### 5 7021-8 ####PIMENTEL LABORATORYCLIA [id number] [address] MCV (RBC) [Entitic vol] 92.1 fL Normal 80.0-100.0 [facility] Comment on above: Order Comment: Speci men Type: BLOOD SPECIMENOrdering Facility: [facility] Address: [address] [place] [address] Performed By: #### 5 7021-8 ####PIMENTEL LABORATORYCLIA [id number] [place] [address] [place] Monocytes (Bld) [#/Vol] 1.33 10*3/uL High <0.87 [facility] Comment on above: Order Comment: Speci men Type: BLOOD SPECIMENOrdering Facility: [facility] Address: [address] [place] [address] Performed By: #### 5 7021-8 ####PIMENTEL LABORATORYCLIA [id number] [address] STATES [facility] Monocytes/100 WBC (Bld) 7.7 % Normal [facility] Comment on above: Order Comment: Speci men Type: BLOOD SPECIMENOrdering Facility: [facility] Address: [address] [place] [address] Performed By: #### 5 7021-8 ####PIMENTEL LABORATORYCLIA [id number] [place] [address] [place] Neutrophils (Bld) [#/Vol] 14.88 10*3/uL High 1.45-7.50 [facility] Comment on above: Order Comment: Speci men Type: BLOOD SPECIMENOrdering Facility: [facility] Address: [address] [place] [address] Performed By: #### 5 7021-8 ####PIMENTEL LABORATORYCLIA [id number] [address] [place] Neutrophils/100 WBC (Bld) 86.0 % Normal [facility] Comment on above: Order Comment: Speci men Type: BLOOD SPECIMENOrdering Facility: [facility] Address: [address] [place] [address] Performed By: #### 5 7021-8 ####PIMENTEL LABORATORYCLIA [id number] [place] [address] [place] Nucleated RBC (Bld) [#/Vol] 10*3/uL Normal <0.01 [facility] Comment on above: Order Comment: Speci men Type: BLOOD SPECIMENOrdering Facility: [facility] Address: [address] [place] [address] Performed By: #### 5 7021-8 ####PIMENTEL LABORATORYCLIA [id number] [place] [address] [place] Nucleated RBC/100 WBC (Bld) [Ratio] 0.0 /100 WBC Normal [facility] Comment on above: Order Comment: Speci men Type: BLOOD SPECIMENOrdering Facility: [facility] Address: [address] [place] [address] Performed By: #### 5 7021-8 ####PIMENTEL LABORATORYCLIA [id number] [place] [address] [place] Platelet mean volume (Bld) [Entitic vol] 10.6 fL Normal 9.0-12.7 [facility] Comment on above: Order Comment: Speci men Type: BLOOD SPECIMENOrdering Facility: [facility] Address: [address] [place] [address] Performed By: #### 5 7021-8 ####PIMENTEL LABORATORYCLIA [id number] [address] [place] Platelets (Bld) [#/Vol] 275 10*3/uL Normal 150-400 [facility] Comment on above: Order Comment: Speci men Type: BLOOD SPECIMENOrdering Facility: [facility] Address: [address] [place] [address] Performed By: #### 5 7021-8 ####PIMENTEL LABORATORYCLIA [id number] [address] [place] RBC (Bld) [#/Vol] 4.17 10*6/uL Normal 3.90-5.20 [facility] Comment on above: Order Comment: Speci men Type: BLOOD SPECIMENOrdering Facility: [facility] Address: [address] [place] [address] Performed By: #### 5 7021-8 ####PIMENTEL LABORATORYCLIA [id number] [place] [id number] [place] WBC (Bld) [#/Vol] 17.31 10*3/uL High 3.70-11.00 [facility] Comment on above: Order Comment: Speci men Type: BLOOD SPECIMENOrdering Facility: [facility] Address: [address] [place] [address] Performed By: #### 5 7021-8 ####[facility] [id number] [place] [address] [facility] CONSULTon 08-06-2024 CONSULT HNO ID: [id number] Author: REY ROWAN MD Service: Urology Author Type: Resident Type: Consults Filed: 08/06/2024 18:31 Note Text: Attestation signed by Rey Rowan MD at 08/06/2024 6:31 PM [facility] STAFF PHYSICIAN NOTE OF PERSONAL INVOLVEMENT IN CARE I personally saw and examined the patient. I have reviewed the progress note obtained and documented by the resident and I personally participated in the doll components. I have discussed the case and management of the patient's care. I agree with resident's findings and plan as documented in the resident's note. Rey Rowan MD [facility] Urology Urology Consult 08/06/2024 HISTORY OF [...] was discussed with the patient or authorized automobile sales representative. The patient or authorized automobile sales representative has agreed to proceed with the [...] Value 08/06 (more content not included)... Normal [facility] CT ABD/PEL WO IVCONon 2024 CT ABD/PEL WO IVCON * * *Final Report* * * DATE OF EXAM: Aug 06 2024 9:33AM [facility] [place] ABD/PEL WO IVCON / [...] left UVJ. Questionable punctate left renal stone. Senior Litigation Paralegal: JAYDA Transcribe Date/Time: Aug 06 2024 10:11A Dictated by : KELLY CURRIE MD This examination was interpreted and the report reviewed and electronically signed by: KELLY CURRIE MD on Aug 06 2024 10:18AM EST [id number] [facility] CT BRAIN WO IVCONon 08-07-19 CT BRAIN WO IVCON * * *Final Report* * * DATE OF EXAM: Aug 06 2024 9:33AM [facility] [place] [place] BRAIN WO IVCON / [...] acute intracranial hemorrhage identified. White matter changes. Senior Litigation Paralegal: PSCB Transcribe Date/Time: Aug 06 2024 9:52A Dictated by : CARLOS EDUARDO HERRERA MD This examination was interpreted and the report reviewed and electronically signed by: CARLOS EDUARDO HERRERA MD on Aug 06 2024 9:59AM EST [id number] [facility] CT CERVICAL SPINE WO IVCONon 08-06-2024 CT CERVICAL SPINE WO IVCON * * *Final Report* * * DATE OF EXAM: Aug 06 2024 9:33AM [facility] [place] CERVICAL SPINE WO IVCON [...] Counting reference: Craniocervical junction. Anatomic Variants: None. Button Sewing Machine Operator (topogram) images: No additional findings. Alignment: There [...] degenerative changes with multilevel disc space narrowing. Senior Litigation Paralegal: JAYDA Transcribe Date/Time: Aug 06 2024 10:00A Dictated by : CARLOS EDUARDO HERRERA MD This examination was interpreted and the report reviewed and electronically signed by: CARLOS EDUARDO HERRERA MD on Aug 06 2024 10:13AM EST [id number] Normal [facility] Comprehensive metabolic 2000 panelon 08-06-2024 Albumin [Mass/Vol] 3.8 g/dL Low 3.9-4.9 [facility] Comment on above: Order Comment: Speci men Type: BLOOD SPECIMENOrdering Facility: [facility] Address: [address] [place] [address] Performed By: #### 3 3762-6, 40882-9, 24682-0, [id number] ####VAN WERT LABORATORYCLIA [id number] [place] [address] [place] ALP [Catalytic activity/Vol] 99 U/L Normal 34-123 [facility] Comment on above: Order Comment: Speci men Type: BLOOD SPECIMENOrdering Facility: [facility] Address: [address] [place] [address] Performed By: #### 3 3762-6, 41687-0, 33691-0, [id number] ####VAN WERT LABORATORYCLIA [id number] [place] [address] [place] ALT [Catalytic activity/Vol] 7 U/L Normal 7-38 [facility] Comment on above: Order Comment: Speci men Type: BLOOD SPECIMENOrdering Facility: [facility] Address: [address] [place] [address] Performed By: #### 3 3762-6, 88763-6, 21310-2, [id number] ####PIMENTEL LABORATORYCLIA [id number] [place] [address] [place] Anion gap [Moles/Vol] 14 mmol/L Normal 8-15 [facility] Comment on above: Order Comment: Speci men Type: BLOOD SPECIMENOrdering Facility: [facility] Address: [address] [place] [id number] Performed By: #### 3 3762-6, 07348-5, , [id number] ####PIMENTEL LABORATORYCLIA [id number] [place] [address] [place] AST [Catalytic activity/Vol] 11 U/L Low 13-35 [facility] Comment on above: Order Comment: Speci men Type: BLOOD SPECIMENOrdering Facility: [facility] Address: [facility] [place] [id number] Performed By: #### 3 3762-6, 01277-3, , [id number] ####PIMENTEL LABORATORYCLIA [id number] [place] [address] [place] Bilirubin [Mass/Vol] 0.5 mg/dL Normal 0.2-1.3 [facility] Comment on above: Order Comment: Speci men Type: BLOOD SPECIMENOrdering Facility: [facility] Address: [facility] [place] [id number] Performed By: #### 3 3762-6, 33107-6, , [id number] ####PIMENTEL LABORATORYCLIA [id number] [place] [address] [place] Calcium [Mass/Vol] 9.7 mg/dL Normal 8.5-10.2 [facility] Comment on above: Order Comment: Speci men Type: BLOOD SPECIMENOrdering Facility: [facility] Address: [address] [place] [address] Performed By: #### 3 3762-6, 38393-5, , [id number] ####PIMENTEL LABORATORYCLIA [id number] [place] [id number] [place] Chloride [Moles/Vol] 98 mmol/L Normal 98-107 [facility] Comment on above: Order Comment: Speci men Type: BLOOD SPECIMENOrdering Facility: [facility] Address: [address] [place] [address] [place] [id number] Performed By: #### 3 3762-6, 10264-4, , [id number] ####PIMENTEL LABORATORYCLIA [id number] [place] [address] [place] CO2 [Moles/Vol] 24 mmol/L Normal 22-30 [facility] Comment on above: Order Comment: Alex ruffin Type: BLOOD SPECIMENOrdering Facility: [facility] Address: [address] [place] [address] Performed By: #### 3 3762-6, 51957-3, , [id number] ####VAN WERT LABORATORYCLIA [id number] [place] [address] [place] Creatinine [Mass/Vol] 0.89 mg/dL Normal 0.58-0.96 [facility] Comment on above: Order Comment: Alex ruffin Type: BLOOD SPECIMENOrdering Facility: [facility] Address: [address] [place] [address] Performed By: #### 3 3762-6, 40908-7, , [id number] ####VAN WERT LABORATORYCLIA [id number] [place] [address] [place] Creatinine and Glomerular filtration rate.predicted panel (S/P/Bld) 64 mL/min/1.73m??? Normal >=60 [facility] Comment on above: Order Comment: Alex ruffin Type: BLOOD SPECIMENOrdering Facility: [facility] Address: [address] [place] [address] Result Comment: Ashli mated Glomerular Filtration Rate [...] actual GFR. Performed By: #### 3 3762-6, 57574-4, , [id number] ####PIMENTEL LABORATORYCLIA [id number] [place] [address] [place] Glucose [Mass/Vol] 235 mg/dL High 74-99 [facility] Comment on above: Order Comment: Alex ruffin Type: BLOOD SPECIMENOrdering Facility: [facility] Address: [address] [place] [address] Result Comment: The Citizen Of [place] Diabetes Association (ADA) provides guidance for cutoff [...] Standards of Medical Care in Diabetes 2016, Citizen [place] Diabetes Association. Diabetes Care. 2016.39(Suppl 1). Performed By: #### 3 3762-6, 31152-7, , [id number] ####PIMENTEL LABORATORYCLIA [id number] [place] [address] [place] Potassium [Moles/Vol] 4.4 mmol/L Normal 3.7-5.1 [facility] Comment on above: Order Comment: Alex ruffin Type: BLOOD SPECIMENOrdering Facility: [facility] Address: [address] [place] [address] Performed By: #### 3 3762-6, 07958-5, , [id number] ####PIMENTEL LABORATORYCLIA [id number] [place] [address] [place] Protein [Mass/Vol] 7.8 g/dL Normal 6.3-8.0 [facility] Comment on above: Order Comment: Alex ruffin Type: BLOOD SPECIMENOrdering Facility: [facility] Address: [address] [place] [address] Performed By: #### 3 3762-6, 39880-3, , [id number] ####PIMENTEL LABORATORYCLIA [id number] [place] [address] [place] Sodium [Moles/Vol] 136 mmol/L Normal 136-144 [facility] Comment on above: Order Comment: Alex ruffin Type: BLOOD SPECIMENOrdering Facility: [facility] Address: [address] [place], [place] [address] Performed By: #### 3 3762-6, 31530-0, 49443-9, [id number] ####VAN WERT LABORATORYCLIA [id number] [place] [id number] [facility] Urea nitrogen [Mass/Vol] 27 mg/dL High 7- [facility] Comment on above: Order Comment: Speci men Type: BLOOD SPECIMENOrdering Facility: [facility] Address: [address] [place], [place] [address] Performed By: #### 3 3762-6, 98265-5, 82223-8, [id number] ####VAN WERT LABORATORYCLIA [id number] [address] OF [facility] ECG COMPLETEon 08-06-2024 ECG COMPLETE Ventricular Rate : 1 07 BPM Atrial Rate : 107 BPM P-R Interval : 130 ms QRS Duration : 132 ms Q-T Interval : 378 ms QTC Calculation(Bazett) : 504 ms Calculated P Northwood : 69 degrees Calculated R [place]wood : 60 degrees Calculated T Northwood : 191 degrees SINUS TACHYCARDIA LEFT BUNDLE BRANCH BLOCK ABNORMAL ECG NO PREVIOUS ECGS AVAILABLE Confirmed by MD PEDRAZA CAROL ([id number]) on 08/06/2024 6:00:47 PM NAME : CJ GILLIS PID : [id number] : 1940 Gender : Female Race : ORD : [id number] Procedure Date : Aug 06 2024 17:55:25 Edit Date : Aug 06 2024 18:00:51 Diagnosis: SINUS TACHYCARDIA LEFT BUNDLE BRANCH BLOCK ABNORMAL ECG NO PREVIOUS ECGS AVAILABLE Confirmed by MD PEDRAZA CAROL ([id number]) on 08/06/2024 6:00:47 PM Test Reason : Chest Pain Location : 4 : [facility] EM Overread By : MD PEDRAZA CAROL Edited By : MD PERDAZA CAROL Referred By : , Acquired by : MARK BENNETT [facility] ED NOTEon 08-06-2024 ED NOTE HNO ID: [id number] Author: JOSE JESUS RN Service: Nursing Author Type: Registered Nurse Type: ED Notes Filed: 08/06/2024 18:28 Note Text: Surgcial residents at bedside. Transporting patient to OR Normal [facility] ED NOTE HNO ID: [id number] Author: JOSE JESUS RN Service: Nursing Author Type: Registered Nurse Type: ED Notes Filed: 08/06/2024 18:16 Note Text: Patient scheduled for transport to OR per presurgery dept. [facility] ED NOTE HNO ID: [id number] Author: SHERIN JIMENEZ, INDIRA Service: ? Author Type: Registered Nurse Type: ED Notes Filed: 08/06/2024 15:53 Note Text: Bed: 17-ED Expected date: Expected time: Means of arrival: Comments: squad [facility] ED NOTE HNO ID: [id number] Author: JET PETERS RN Service: Nursing Author Type: Registered Nurse Type: ED Notes Filed: 08/06/2024 14:59 Note Text: MMT are at the bedside to transport pt down to [facility]. Report was given to the transfer team who assumed care at this time. Belongings were transported with the pt. [facility] ED NOTE HNO ID: [id number] Author: GARETH FOSS RN Service: ? Author Type: Registered Nurse Type: ED Notes Filed: 08/06/2024 08:31 Note Text: Patient brought to ED by EMS. Patient had unwitnessed fall, c/o right hip and shoulder pain [facility] ED NOTE HNO ID: [id number] Author: GARETH FOSS RN Service: ? Author Type: Registered Nurse Type: ED Notes Filed: 08/06/2024 08:26 Note Text: Bed: ED-11 Expected date: 08/06/24 Expected time: 8:06 AM Means of arrival: [place] [facility]/EMS Comments: 84 yo female, unwitnessed fall, right hip pain [facility] ED PROV NOTEon 08-06-2024 ED PROV NOTE HNO ID: [id number] Author: JOHN MONTES DE OCA MD Service: [...] emergency department today as a transfer from [facility] for urology consultation. Patient had an unwitnessed [...] JOHN MONTES DE OCA 08/06/24 1648 Normal [facility] ED PROV NOTE HNO ID: [id number] Author: JOHN MONTES DE OCA MD Service: [...] presents with: Fall: Presents to ED from [facility] for consult. Pt s/p fall with incidental findings of urolithiasis AND urology consult. Pt unable to participate in triage process, only responding to name. A/o x1 upon arrival HPI 84-year-old female presents emerged department as a functional transfer from [facility] for mildly obstructing 5 mm left UVJ [...] ground for long. Evaluated initially at the [facility] ER and incidentally found positive mild obstructive [...] Nose normal. (more content not included)... Normal [facility] ED PROV NOTE HNO ID: [id number] Author: INOCENTE SPANGLER MD Service: Emergency Medicine [...] obvious aph (more content not included)... Normal [facility] EKGon 08-06-2024 Electrocardiogram Ventricular Rate : 9 7 BPM Atrial Rate : 97 BPM P-R Interval : 114 ms QRS Duration : 132 ms Q-T Interval : 384 ms QTC Calculation(Bazett) : 487 ms Calculated P Northwood : 15 degrees Calculated R Northwood : 47 degrees Calculated T Northwood : 141 degrees NORMAL SINUS RHYTHM LEFT BUNDLE BRANCH BLOCK ABNORMAL ECG no STEMI by Gillis-modified Sgarbossa criteria Confirmed by ANÍBAL NAPIER, INOCENTE Jett ([id number]) on 08/06/2024 9:08:38 AM NAME : CJ GILLIS PID : [id number] : 1940 Gender : Female Race : ORD : Procedure Date : Aug 06 2024 09:01:04 Edit Date : Aug 06 2024 09:08:42 Diagnosis: NORMAL SINUS RHYTHM LEFT BUNDLE BRANCH BLOCK ABNORMAL ECG no STEMI by Gillis-modified Sgarbossa criteria Confirmed by INOCENTE SPANGLER MD ([id number]) on 08/06/2024 9:08:38 AM Test Reason : Location : 1 : ER ED Overread By : INOCENTE SPANGLER MD Edited By : INOCENTE SPANGLER MD Referred By : , Acquired by : Rojelio FOSS [facility] HIGH SENSITIVITY TROPONIN T (INITIAL)on 08-06-2024 Troponin T.cardiac High sensitivity method [Mass/Vol] 14 ng/L High <12 [facility] Comment on above: Order Comment: Alex ruffin Type: BLOOD SPECIMENOrdering Facility: [facility] Address: [address] [place] [address] Performed By: #### 3 3762-6, 60270-4, 53634-8, [id number] ####PIMENTEL LABORATORYCLIA [id number] [address] HIGH SENSITIVITY TROPONIN T (SECOND)on 08-06-2024 Troponin T.cardiac High sensitivity method [Mass/Vol] 14 ng/L High <12 [facility] Comment on above: Order Comment: Alex ruffin Type: BLOOD SPECIMENOrdering Facility: [facility] Address: [address] [place] [address] Performed By: #### L [id number] ####PIMENTEL LABORATORYCLIA [id number] [address] HIGH SENSITIVITY TROPONIN T (THIRD) 3 HRS AFTER INITIALon 08-06-2024 Troponin T.cardiac High sensitivity method [Mass/Vol] 13 ng/L High <12 [facility] Comment on above: Order Comment: Alex ruffin Type: BLOOD SPECIMENOrdering Facility: [facility] Address: [address] [place] [address] Performed By: #### L [id number] ####PIMENTEL LABORATORYCLIA [id number] [address] HISTORY PHYSICALon HISTORY PHYSICAL HNO ID: [id number] Author: CHAPARRO NAVA MD Service: Hospital Medicine Author Type: Physician Type: H&P Filed: 08/06/2024 23:03 Note Text: DEPARTMENT OF HOSPITAL MEDICINE HISTORY AND PHYSICAL EXAM SERVICE DATE: 08/06/2024 SERVICE TIME: 6:06 PM Primary Care Physician: Carlos Herron MD NIGHT AND WEEKEND COVERAGE: [place] COVERAGE: From 7am - 7pm, please call After 7pm, please call cross cover pager #[phone] Subjective CHIEF COMPLAINT: renal calculus and fall HPI: Patient is a 84-year-old female with a past medical history significant for type 2 diabetes mellitus, CAD, hypertension, hyperlipidemia, osteoarthritis, urge incontinence, history of prior DVT and PE not on any anticoagulation at this time, dementia with a baseline mentation of AANDO x 1 who presented to [facility] ED for renal calculus and fall. Patient is from a nursing facility. Given patient's mentation, history obtained from patient's daughter. She had an unwitnessed fall and had imaging done. Imaging negative for fracture but it did show 5 mm left UVJ stone. She was initially brought to [place] ED and was then transferred to [place]. At the nursing facility, there was some concern for UTI as well and she received 1 dose of Bactrim at nursing facility and Rocephin at outside ED. she was transferred to [facility] From outside ED so that she [...] and fax results to Dr. Sprague at [phone] DULoxetine (CYMBALTA) 30 mg capsule No No Sig: Take 1 capsule by mouth twice daily. Patient taking differently: Take 30 mg by mouth once daily. Lancets lancets No No Sig: Test Two times a day. Insulin Dep? No E11.9 DM 2 Potassium 99 mg ta (more content not included)... Normal [facility] Lactate (Bld) [Moles/Vol]on 08-06-2024 Lactate [Moles/Vol] 2.3 mmol/L High 0.5-2.2 [facility] Comment on above: Order Comment: Speci men Type: BLOOD SPECIMEN [facility] Address: [address] [place] [address] Performed By: #### 3 2693-4 #### [facility] CLIA [id number] [address] STATES OF [facility] Lactate [Moles/Vol] 2.3 mmol/L High 0.5-2.2 [facility] Comment on above: Order Comment: Speci men Type: BLOOD SPECIMEN [facility] Address: [address] [place] [address] Performed By: #### 3 2693-4 #### [facility] CLIA [id number] [address] [place] Magnesium SerPl-mCncon 08-06 Magnesium [Mass/Vol] 1.4 mg/dL Low 1.7-2.3 [facility] Comment on above: Order Comment: Speci men Type: BLOOD SPECIMENOrdering Facility: [facility] Address: [address] [place] [address] Performed By: #### 3 3762-6, 64744-3, 52320-3, [id number] ####[facility] W[facility] LABORATORYCLIA [id number] [address] [place] NT-proBNP SerPl-mCncon 08-06 Natriuretic peptide.B prohormone N-Terminal [Mass/Vol] 1831 pg/mL High <450 [facility] Comment on above: Order Comment: Speci men Type: BLOOD SPECIMENOrdering Facility: [facility] Address: [address] [place] [address] Performed By: #### 3 3762-6, 33793-4, 44491-5, [id number] ####VAN WERT LABORATORYCLIA [id number] [place] [address] [place] NURSING PROGon 08-06-2024 NURSING PROG HNO ID: [id number] Author: ETHAN FLORES RN Service: Nursing Author Type: Registered Nurse Type: Nursing Progress Note Filed: 08/06/2024 19:50 Note Text: Please contact Daughter Guerita Rivera [phone] with any concerns or updates. Patient's is elderly as well and not present with the patient in the hospital. Normal [facility] OPERATIVE NOon 08-06-2024 OPERATIVE NO HNO ID: [id number] Author: REY ROWAN MD Service: Urology Author Type: Physician Type: Operative Report Filed: 08/07/2024 13:54 Note Text: OPERATIVE/PROCEDURE REPORT LOG ID: [id number] SURGERY/PROCEDURE DATE: 08/06/2024 INCISION/PROCEDURE START TIME: 6:47 PM INCISION CLOSE/PROCEDURE END TIME: 6:54 PM SURGEON(S)/PROCEDURALIST(S) AND MOTOR VEHICLE REPRESENTATIVE(S): Surgeons and Role: * Rey Rowan MD [...] was replaced and catheter removed. A 6 amharic 28 cm double j ureteral stent was [...] the entire procedure. Rey Rowan MD Normal [facility] PT panel Coag (PPP)on 2024 INR Coag (PPP) [Relative time] 1.1 {INR} Normal 0.9-1.3 [facility] Comment on above: Order Comment: Speci men Type: BLOOD SPECIMENOrdering Facility: [facility] Address: [address] [place] [address] Result Comment: Marleni min K Antagonist (VKA) Therapeutic Range: INR 2 to 3 (Target INR of 2.5) Note: For patients treated with VKA drugs, such as warfarin, the Citizen Of [place] [employer] 2012 Guideline recommends [...] to 3.5 (target INR of 3). Diane CHAPPELL, et al. Chest 2012, 141:7S-47S Twyla HAWLEY et al. [facility] 2017, 70: 252-289 Performed By: #### 3 4528-0, 75516-4 ####[facility]ORATORYCLIA [id number] [place] [address] [place] PT Coag (PPP) [Time] 11.7 s Normal 9.7-13.0 [facility] Comment on above: Order Comment: Alex ruffin Type: BLOOD SPECIMENOrdering Facility: [facility] Address: [address] [place] [address] Performed By: #### 3 4528-0, 61980-9 ####[facility]ORATORYCLIA [id number] [place] [id number] [place] [facility] INR Coag (PPP) [Relative time] 1.1 {INR} Normal 0.9-1.3 [facility] Comment on above: Order Comment: Alex ruffin Type: BLOOD SPECIMEN [facility] Address: [address] [place] [address] Result Comment: Marleni min K Antagonist (VKA) Therapeutic Range: INR 2 to 3 (Target INR of 2.5) Note: For patients treated with VKA drugs, such as warfarin, the Citizen Of [place] [employer] 2012 Guideline recommends [...] to 3.5 (target INR of 3). Diane CHAPPELL, et al. Chest 2012, 141:7S-47S Twyal HAWLEY et al. [facility] 2017, 70: 252-289 Performed By: #### 3 4528-0, 12617-6 #### [facility] CLIA [id number] [address] [place] [address] [place] PT Coag (PPP) [Time] 12.0 s Normal 9.7-13.0 [facility] Comment on above: Order Comment: Speci men Type: BLOOD SPECIMEN [facility] Address: [address] [place] [address] Performed By: #### 3 4528-0, 00146-1 #### [facility] CLIA [id number] [address] Urinalysis complete panel (U )on 08-06-2024 Bacteria LM.HPF (Urine sed) [#/Area] Rare Abnormal None Seen [facility] Comment on above: Order Comment: Speci men Type: URINE SPECIMENOrdering Facility: [facility] Address: [address] [place] [address] Performed By: #### 2 4356-8 ####[facility] [id number] [address]#### 630-4 ####[facility] LABCL[facility] [id number] [address] [place] Bilirubin Ql (U) Negative Normal Negative [facility] Comment on above: Order Comment: Speci men Type: URINE SPECIMENOrdering Facility: [facility] Address: [address] [place] [address] Performed By: #### 2 4356-8 ####[facility] [id number] [address]#### 630-4 ####[facility] LABCL[facility] [id number] [address] [place] Clarity (Unsp spec) Slightly Cloudy Abnormal Clear [facility] Comment on above: Order Comment: Speci men Type: URINE SPECIMENOrdering Facility: [facility] Address: [address] [place] [address] Performed By: #### 2 4356-8 ####[facility] [id number] [address]#### 630-4 ####[facility] LABCLIA [id number] [address] [place] [address] [place] Color (U) Yellow Normal Yellow [facility] Comment on above: Order Comment: Speci men Type: URINE SPECIMENOrdering Facility: [facility] Address: [address] [place], [place] [address] Performed By: #### 2 4356-8 ####[facility]CLIA [id number] [place] [address] [place]#### 630-4 ####[facility] LABCLIA [id number] [address] [place] [address] [place] Glucose Test strip (U) [Mass/Vol] Negative Normal Negative [facility] Comment on above: Order Comment: Speci men Type: URINE SPECIMENOrdering Facility: [facility] Address: [address] [place] [address] Performed By: #### 2 4356-8 ####[facility]ORYCLIA [id number] [place] [address] [place]#### 630-4 ####[facility] LABCLIA [id number] [address] [address] [place] Hemoglobin Ql (U) 1+ Abnormal Negative [facility] Comment on above: Order Comment: Speci men Type: URINE SPECIMENOrdering Facility: [facility] Address: [address] [place] [address] Performed By: #### 2 4356-8 ####[facility]ORYCLIA [id number] [place] [address] [place]#### 630-4 ####[facility] LABCLIA [id number] [address] [address] [place] Ketones Ql (U) Negative Normal Negative [facility] Comment on above: Order Comment: Speci men Type: URINE SPECIMENOrdering Facility: [facility] Address: [address] [place], [place] [address] Performed By: #### 2 4356-8 ####[facility]ATORYCLIA [id number] [place] [address] [place]#### 630-4 ####[facility] LABCLIA [id number] [place] [address] [place] Leukocyte esterase Test strip Ql (U) 3+ Abnormal Negative [facility] Comment on above: Order Comment: Speci men Type: URINE SPECIMENOrdering Facility: [facility] Address: [address] [place] [address] Performed By: #### 2 4356-8 ####[facility]ORYCLIA [id number] [place] [address] [place]#### 630-4 ####[facility] LABCLIA [id number] [place] [address] [place] Nitrite Ql (U) Negative Normal Negative [facility] Comment on above: Order Comment: Speci men Type: URINE SPECIMENOrdering Facility: [facility] Address: [address] [place] [address] Performed By: #### 2 4356-8 ####[facility]ORYCLIA [id number] [place] [address] [place]#### 630-4 ####[facility] LABCLIA [id number] [place] [address] [place] pH (U) 6.0 [pH] Normal 5.0-8.0 [facility] Comment on above: Order Comment: Speci men Type: URINE SPECIMENOrdering Facility: [facility] Address: [address] [place], [place] [address] Performed By: #### 2 4356-8 ####[facility]ORYCLIA [id number] [place] [address] [place]#### 630-4 ####[facility] LABCLIA [id number] [place] [address] [place] Protein (U) [Mass/Vol] Trace Abnormal Negative [facility] Comment on above: Order Comment: Speci men Type: URINE SPECIMENOrdering Facility: [facility] Address: [address] [place] [address] Performed By: #### 2 4356-8 ####[facility]ORYCLIA [id number] [address]#### 630-4 ####[facility] LABCLIA [id number] [place] [address] [place] RBC LM.HPF (Urine sed) [#/Area] 3-5 /HPF Abnormal 0-3 /HPF [facility] Comment on above: Order Comment: Speci men Type: URINE SPECIMENOrdering Facility: [facility] Address: [address] [place] [address] Performed By: #### 2 4356-8 ####[facility]ATORYCLIA [id number] [place] [address] [facility] [place]#### 630-4 ####[facility] LABCLIA [id number] [place] [address] [place] Specific gravity (U) [Rel density] 1.020 Normal 1.005-1.03 0 [facility] Comment on above: Order Comment: Speci men Type: URINE SPECIMENOrdering Facility: [facility] Address: [address] [place] [address] Performed By: #### 2 4356-8 ####[facility]ORYCLIA [id number] [address]#### 630-4 ####[facility] LABCLIA [id number] [place] [address] [place] Urobilinogen Ql (U) 0.2 EU/dL Normal 0.2-1.0 EU/dL [facility] Comment on above: Order Comment: Speci men Type: URINE SPECIMENOrdering Facility: [facility] Address: [address] [place] [address] Performed By: #### 2 4356-8 ####[facility]ORYCLIA [id number] [address]#### 630-4 ####[facility] LABCLIA [id number] [address] WBC LM.HPF (Urine sed) [#/Area] /[HPF] Abnormal 0-5 /HPF [facility] Comment on above: Order Comment: Speci men Type: URINE SPECIMENOrdering Facility: [facility] Address: [address] [place] [address] Performed By: #### 2 4356-8 ####[facility]ORYCLIA [id number] [address]#### 630-4 ####[facility] LABCLIA [id number] [address] [place] XR ABDOMEN 1V [...] left ureter calculus seen on the CT Senior Litigation Paralegal: PSCB Transcribe Date/Time: Aug 06 2024 5:46P Dictated by : EZEQUIEL PAYNE MD This examination was interpreted and the report reviewed and electronically signed by: EZEQUIEL PAYNE MD on Aug 06 2024 5:48PM EST [id number] Normal [facility] XR HIP 3V PELV+ AP/LAT RTon 08-06-2024 [...] fracture or dislocation. IMPRESSION: No acute fracture. Senior Litigation Paralegal: Melinta Transcribe Date/Time: Aug 06 2024 9:37A Dictated by : KELLY CURRIE MD This examination was interpreted and the report reviewed and electronically signed by: KELLY CURRIE MD on Aug 06 2024 9:39AM EST [id number] [facility] XR RIB/CHST 3V AP RIB/OBL/CH ST [...] IMPRESSION: No acute bony abnormality is seen. Senior Litigation Paralegal: Melinta Transcribe Date/Time: Aug 06 2024 9:34A Dictated by : HEATHER YUNG MD This examination was interpreted and the report reviewed and electronically signed by: HEATHER YUNG MD on Aug 06 2024 9:37AM EST [id number] [facility] XR SHLDR >/=3V AP/GHASSAN AP/OTH R [...] IMPRESSION: No acute bony abnormality is seen. Senior Litigation Paralegal: JAYDA Transcribe Date/Time: Aug 06 2024 9:34A Dictated by : HEATHER YUNG MD This examination was interpreted and the report reviewed and electronically signed by: HEATHER YUNG MD on Aug 06 2024 9:37AM EST [id number] [facility] aPTT PPPon 08-06-2024 aPTT Coag (PPP) [Time] 30.2 s Normal 23.0-32.4 [facility] Comment on above: Order Comment: Speci men Type: BLOOD SPECIMENOrdering Facility: [facility] Address: [address] [place] [address] Performed By: #### 3 4528-0, 45805-9 ####[facility]ORATORYCLIA [id number] [place] [address] [place] aPTT Coag (PPP) [Time] 29.8 s Normal 23.0-32.4 [facility] Comment on above: Order Comment: Speci men Type: BLOOD SPECIMENOrdering Facility: [facility] Address: [address] [place] [address] [place] [id number] Performed By: #### 3 4528-0, 68245-9 ####[facility]ORYCLIA [id number] [place], [place] [address] [place] [address] [place] Hemoglobin A1c percentageOrd ered By: Demario Coates on 06-12-2024 HbA1c (Bld) [Mass fraction] 7.0 % >5.7 [facility] Vitamin D, 25-hydroxyOrdered By: Demario Coates on 06-12-2024 Vitamin D 25-Hydroxy 37.9 ng/mL 30-100 [facility] Comment on above: Vitamin D StatusDefi ciency: <20 ng/mL (50nmol/L)Insufficiency: 20-30 ng/mL (50-75 nmol/L)Sufficiency: 30-100 ng/mL (75-250 nmol/L)Toxicity: >100 ng/mL (>250 nmol/L) Albumin to globulin ratioOrd ered By: Demario Coates on 05-12-2024 Albumin/Globulin [Mass ratio] 0.8 {ratio} Low 0.9-2.4 [facility] Bilirubin, totalOrdered By: Demario Coates on 05-12-2024 Bilirubin [Mass/Vol] 0.50 mg/dL 0.20-1.00 [facility] Comment on above: For patients on eltr ombopag therapy, use of Dimension [place] TBIL is not recommended. Blood urea nitrogen (BUN)/cr eatinine ratioOrdered By: Demario Coates on 05-12-2024 Urea nitrogen/Creatinine [Mass ratio] 17.6 mg/mg 10- [facility] Carbon dioxide measurementOr dered By: Demario Coates on 05-12-2024 CO2 [Moles/Vol] 26.0 mmol/L 21.0-32.0 [facility] Chloride measurementOrdered By: Demario Coates on 05-12-2024 Chloride [Moles/Vol] 106 mmol/L 98-107 [facility] Erythrocyte distribution wid th (RBC) [Ratio]Ordered By: Demario Coates on 05-12-2024 Erythrocyte distribution width (RBC) [Entitic vol] 42.3 fL 35.1-43.9 [facility] Erythrocyte distribution wid th ratioOrdered By: Demario Coates on 05-12-2024 Erythrocyte distribution width (RBC) [Ratio] 12.7 % 11.6-14.6 [facility] Estimated glomerular filtrat ion rate (GFR) AmericanOrdered By: Demario Coates on 05-12-2024 Estimated GFR (MDRD) Amer 96 mL/min >60 [facility] Comment on above: GFR Calc Glomerular filtration rate ( GFR) estimationOrdered By: Demario Coates on 05-12-2024 Estimated GFR (MDRD) Non-Af Amer 80 mL/min >60 [facility] Comment on above: Non- GFR Calc Glucose measurementOrdered B y: Demario Coates on 05-12-2024 Glucose [Mass/Vol] 125 mg/dL High 74-106 [facility] Comment on above: Fasting Glucose resu lt from 100 to 125 mg/dL suggests IMPAIRED HOMEOSTASIS per A.D.A. criteria. Hematocrit Auto (Bld) [Volum e fraction]Ordered By: Demario Coates on 05-12-2024 Hematocrit (Bld) [Volume fraction] 35.9 % Low 37-47 [facility] Hemoglobin A1c percentageOrd ered By: Demario Coates on 05-12-2024 HbA1c (Bld) [Mass fraction] 7.2 % High 3.8-5.6 [facility] Comment on above: Normal < 5.7 % Predi abetic 5.7 - 6.4 % Diabetic >or= 6.5 % Please note range changes. Hemoglobin measurementOrdere d By: Demario Coates on 05-12-2024 Hemoglobin (Bld) [Mass/Vol] 11.5 g/dL Low 12.0-15.0 [facility] High density lipoprotein (HD L) measurementOrdered By: Demario Coates on 05-12-2024 Cholesterol in HDL [Mass/Vol] 36 mg/dL Low >40 [facility] Comment on above: The drugs N-Acetylcy steine and Metamizole may falsely depress this assay. Reference Range HDL <40 mg/dL Low HDL Cholesterol HDL >or= 60 mg/dL High HDL Cholesterol Laboratory - Chemistry and C hemistry - challengeOrdered By: Demario Coates on 05-12-2024 AST [Catalytic activity/Vol] 12 U/L Low 15-37 [facility] Low density lipoprotein (LDL ) cholesterol measurementOrdered By: Demario Coates on 05-12-2024 Cholesterol in LDL [Mass/Vol] 120 mg/dL 0-130 [facility] MCV (mean corpuscular volume ) determinationOrdered By: Demario Coates on 05-12-2024 MCV (RBC) [Entitic vol] 91.8 fL 81-99 [facility] Mean corpuscular hemoglobin (MCH) determinationOrdered By: Demario Coates on 05-12-2024 MCH (RBC) [Entitic mass] 29.4 pg 27.0-32.0 [facility] Mean corpuscular hemoglobin concentration (MCHC) determinationOrdered By: Demario Coates on 05-12-2024 MCHC (RBC) [Mass/Vol] 32.0 g/dL 32-36 [facility] Mean platelet volume determi nationOrdered By: Demario Coates on 05-12-2024 Platelet mean volume (Bld) [Entitic vol] 10.7 fL 6.2-12.0 [facility] Platelet countOrdered By: Kenrick Coates on 05-12-2024 Platelets (Bld) [#/Vol] 254 10*3/uL 150-450 [facility] Potassium measurementOrdered By: Demario Coates on 05-12-2024 Potassium [Moles/Vol] 4.1 mmol/L 3.5-5.1 [facility] RBC Auto (Bld) [#/Vol]Ordere d By: Demario Coates on 05-12-2024 RBC (Bld) [#/Vol] 3.91 10*6/uL Low 4.2-5.4 [facility] Serum anion gap measurementO rdered By: Demario Coates on 05-12-2024 Anion gap [Moles/Vol] 8 mmol/L 5-15 [facility] Serum globulin measurementOr dered By: Demario Coates on 05-12-2024 Globulin (S) [Mass/Vol] 3.8 g/dL 2.2-4.2 [facility] Serum or plasma alanine vizcarra otransferase (ALT) measurementOrdered By: Demario Coates on 05-12-2024 ALT [Catalytic activity/Vol] 9 U/L Low 13-56 [facility] Serum or plasma albumin ramiro urement (mass/volume)Ordered By: Demario Coates on 05-12-2024 Albumin [Mass/Vol] 3.2 g/dL 3.2-5.0 [facility] Serum or plasma alkaline santi sphatase measurementOrdered By: Demario Coates on 05-12-2024 ALP [Catalytic activity/Vol] 60 U/L 45-117 [facility] Serum or plasma calcium ramiro urement (mass/volume)Ordered By: Demario Coates on 05-12-2024 Calcium [Mass/Vol] 9.3 mg/dL 8.5-10.1 [facility] Serum or plasma cholesterol measurement (mass/volume)Ordered By: Demario Coates on 05-12-2024 Cholesterol [Mass/Vol] 194 mg/dL <200 [facility] Comment on above: <200 mg/dL Desirable 200-240 mg/dL Borderline >240 mg/dL High Risk Serum or plasma creatinine m easurement (mass/volume)Ordered By: Demario Coates on 05-12-2024 Creatinine [Mass/Vol] 0.74 mg/dL 0.55-1.02 [facility] Comment on above: The validity of the calculated GFR & GFRAA in patients over 70 years has not been determined. Clinical correlation is essential. Serum or plasma urea nitroge n measurement (mass/volume)Ordered By: Demario Coates on 05-12-2024 Urea nitrogen [Mass/Vol] 13 mg/dL 7-18 [facility] Sodium levelOrdered By: Thomas Coates on 05-12-2024 Sodium [Moles/Vol] 140 mmol/L 136-145 [facility] TSH QnOrdered By: Demario saenz on 05-12-2024 Thyroid Stimulating Hormone (TSH) 0.737 uIU/mL 0.358-3.74 0 [facility] Total proteinOrdered By: Colby Coates on 05-12-2024 Protein [Mass/Vol] 7.0 g/dL 6.4-8.2 [facility] Triglycerides measurementOrd ered By: Demario Coates on 05-12-2024 Triglyceride [Mass/Vol] 191 mg/dL <199 [facility] Comment on above: The drugs N-Acetylcy steine and Metamizole may falsely depress this assay.Serum Triglycerides Reference Interval Normal <150 mg/dL Borderline high 150 - 199 mg/dL High 200 - 499 mg/dL Very High > or = 500 mg/dL Very low density lipoprotein (VLDL) cholesterol measurementOrdered By: eDmario Coates on 05-12-2024 VLDL Cholesterol 38 mg/dL 5-40 [facility] White blood cell (WBC) count Ordered By: Demario Coates on 05-12-2024 WBC (Bld) [#/Vol] 7.5 10*3/uL 4.4-11.0 [facility] 36on 02-11-2024 36 I would check with Lg mcgee to verify. She just requested records. [facility] 36 Do you want last OV notes sent, or something more? [facility] 36 Spoke with Guerita. Rochelle mclean to send records. Please fax to [phone]. Thank you. [facility] 36on 02-04-2024 36 Called and spoke travis Art, her , and her daughter Guerita. They feel the loose stools were related to her recent antibiotic for her UTI symptoms. Agreeable to Metformin 1,000 mg twice a day. Plans to cut back on sugar intake. [facility] Office Visiton 02-01-2024 Follow-up visit [id number] Gasper Gillis ra 1940 F Date Provider Department Center 02/01/2024 [id number] [facility] Family History Problem Relation Age of Onset Lung cancer Mother Depression Mother High Blood Pressure Father Hyperlipidemia Father High Blood Pressure Mother Hearing loss Father Heart attack Father Heart disease Father Coronary artery disease Father Family Status - Relation Status Age at Mother Father Level of Service:G0439 UT PPPS, SUBSEQ VISIT Reason for Visit and Comments: Medicare Annual Wellness Visit Subsequent [677] Health Maintenance [872] - Dexa- declines Zoster- declines Tdap- declines Pna- declines Covid- not done Blood Work [707419] Normal [facility] Progress Noteon 02-01-2024 Progress Note Patient verified by last name and . Normal [facility] Progress Note [facility] - [address] [address] Visit type: Established Patient Reason for Visit: [...] complication, without long-term current use of insulin ([facility] Diabetes Foot Exam - Comprehensive metabolic panel - Hemoglobin A1c - Encouraged a diet low in carbohydrates and sugar. Discussed increasing Metformin to 1,000 mg twice a day. 3. Diabetic polyneuropathy associated with diabetes mellitus due to underlying condition ([facility] Diabetes Foot Exam - Comprehensive metabolic panel - Hemoglobin A1c - Encouraged a diet low in carbohydrates and sugar. Discussed increasing Metformin to 1,000 mg twice a day. 4. Encounter for diabetic foot exam ([facility]) [facility] Diabetes Foot Exam 5. Atherosclerosis of coronary artery of [place] heart without angina pectoris, unspecified vessel or [...] worsening sympto (more content not included)... Normal [facility] Urinalysis macro (dipstick) panel (U)on 02-01-2024 Bilirubin, UA [facility] h Blood, UA Trace [facility] Glucose, UA Negative [facility] Ketones, POC (mg/dL) Negative [facility] Leukocytes, UA Trace [facility] th Nitrite, UA Negative [facility] pH, UA 6.0 [facility] Protein, UA Trace [facility] Spec Grav, UA 1.030 [facility] h Urobilinogen, UA 0.2 [facility] alth [facility] 36on 01-31-2024 36 Agree, thank you [facility] 36 Spoke to Guerita, she will actually be in with Faby for an appointment tomorrow morning with Rubina, will have urine tested then. Normal [facility] 36 Yes, I think a urina lysis would be in line, if she cannot get it she can have her daughter collect it and bring it here if she can be here before 4:00. Would recommend that she stop and potato picker a sterile container. Normal [facility] 36 Ashwini from [facility] called stating she saw faby [...] today, Ashwini is calling her next. Normal [facility] 36on 01-28-2024 36 Prescription Request : Last medication check: 11/09/23 Last physical exam: 01/29/23 Next scheduled appointment: 02/01/24 Last date of refill on this medication 06/11/23 90 and 1 refill Normal [facility] [id number] 01-24-2024 [id number] Prescription Request : Last medication check: 11/09/23 Last physical exam: 01/29/23 Next scheduled appointment: 02/01/24 CSA 11/09/23 Last date of refill on this medication [facility] 36on 01-24-2024 36 Reviewed chart. Refi ll appropriate. RX sent. [facility] 36on 01-21-2024 36 Sent mychart msg con firming that Guerita picked up the atb [facility] 36 ----- Message from Hali Moore APRN - [employer] sent at 01/21/2024 7:05 AM EDT ----- Urine culture is positive for infection. Rx sent for Bactrim. [facility] Progress Noteon 01-16-2024 Progress Note Urine sent for culture. [facility] [id number] 01-10-[id number] Herron, Wanted to give you a heads up regarding Cj. I will get everything together for you, but it looks like the letter of recommendation will need to come from you once we obtain information from the home assessment. Thank you. Rubina Moore, CHONG - SUZANNE [facility] [id number] Spoke with [facility] and will place an order for a home assessment via [facility] due to reported concerns of recent fall with injury and frequent falls as well as Cj being unsteady on her feet. Per [facility] once home care comes out and records their findings we will need to fax a letter with recommendation for skilled care to [facility]. States this needs to be written by an MD and an GAMES DEALER cannot do it. Their fax number is [phone]. Orders placed. [facility] 36on 01-10-2024 36 Rx sent [facility] 36 Received notificatio n from home care [...] re-submit home care order and proceed accordingly. Normal [facility] 36 Prescription Request : Last medication check: 11/09/23 Last physical exam: 01/29/23 Next scheduled appointment: 02/01/24 Last date of refill on this medication last prescribed was 500mg tid and was increased to 500mg 2 tablets bid on 11/09/23 but was not sent in [facility] 36 Prescription Request : Last medication check: 11/09/23 Last physical exam: 01/29/23 Next scheduled appointment: 02/01/24 Last date of refill on this medication 07/11/23 90 day 1 refill [place] [address]on 01-09-2024 36 Called and spoke travis Johnson. Let her know I have a message out with [facility] in [place] and will update her once I hear back from them. [facility] 36on 01-01-2024 36 Prescription Request : Last medication check: 11/09/23 Last physical exam: 01/29/23 Next scheduled appointment:02/01/24 Last date of refill on this medication 07/05/23 [facility] Brain/Head without Contrasto n 01-01-2024 Brain/Head without Contrast [facility] Imaging Services [address] [place] [address] 190171 Brain/Head without Contrast MR#: [id number] Acct: [id number] Name: CJ GILLIS Rep #: [id number] : 1940 F 83 From: Gael estes MD PCP: Dr. Raeann Parsons MD Status: PRE ER Study: Brain/Head without Contrast Date of Exam: 04/25 Exam# [id number] Ordering Dr: Herb Holm DO [id number] STUDY: CT BRAIN WITHOUT CONTRAST REASON FOR [...] Signed: Gael Gomez MD at 12:03 EDT , CC: Dr. Herb Holm DO; Dr. Raeann Parsons MD Senior Litigation Paralegal: Signed Normal [facility] Emergency Department Summary on 01-01-2024 Emergency Department Summary [facility] Medical Records Department [address] [place] [address] Emergency Department Summary 01/01/24 MR#: [id number] Acct: [id number] Name: CJ GILLIS Rep #: [id number] : 1940 83 From: Herb Holm DO [...] prior to arrival. Tetanus Immunization: <5 years [facility] Medical History Heart murmur Hypercholesteremia Tuberculosis Home [...] (From Vioxx) AdvReac Nausea Verified 01/01/24 10:15 Wfkofsy-LKW-IwB Reductase AdvReac Pain in Verified 01/01/24 10:15 Inhibitor (Pdmldes-Ikw-Apu joints Reductase Inhibitor) Surgical History History of [...] Resp n (more content not included)... Normal [facility] [id number] 12-24-2023 [id number] Rx sent. OARRS repor t reviewed with no discrepancies. CSA signed in November 2023. Normal [facility] [id number] Medication that the patient is discussing (include dose/route/frequency as available): Tramadol 50mg q8h prn CSA signed 11/09/23, last refill 11/26/23 Summary of question: requesting refill Normal [facility] [id number] 11-26-2023 [id number] Rx sent. OARRS repor t reviewed with no discrepancies. CSA signed this month. Normal [facility] [id number] CSA 11/09/2023 Med pended. [facility] 36on 11-12-2023 36 Guerita was notified. Normal [facility] 36 FYI. [facility] 36 ----- Message from CHONG Johnson CNP sent at 11/12/2023 12:13 PM EDT ----- Normal urine protein level. Left a message to return call. Normal [facility] Microalbumin/Creatinine rati o panel (U)on 11-12-2023 Albumin DL <= 20 mg/L (U) [Mass/Vol] 3.2 mg/dL See Note: [facility] Comment on above: Reference Range: Reference Range Not established Albumin/Creatinine (U) [Mass ratio] 20 NINF [facility] Comment on above: The ADA defines abnormalities [...] [Mass/Vol] 157 mg/dL 20 - 275 mg/dL [facility] HbA1c (Bld) [Mass fraction]O rdered By: Zonia Jordan on 11-09-2023 Interpretation and review of laboratory results Abnormal [facility] Laboratory - Hematology and Cell countsOrdered By: Zonia Jordan on 11-09-2023 HbA1c (Bld) [Mass fraction] 8.3 % Abnormal - 5.7 % [facility] Office Visiton 11-09-2023 Follow-up visit [id number] Gasper Gillis ra 1940 F Date Provider Department Center 11/09/2023 11806-ELWIERUBINA MOORE [facility] Family History Problem Relation Age of Onset Lung cancer Mother Depression Mother High Blood Pressure Father Hyperlipidemia Father High Blood Pressure Mother Hearing loss Father Heart attack Father Heart disease Father Coronary artery disease Father Family Status - Relation Status Age at Mother Father Level of Service:66216 UT OFFICE/OUTPATIENT ESTABLISHED MOD MDM 30 MIN Reason for Visit and Comments: Medication Check [0310734342] Hypertension [327762] Hyperlipidemia [182] Anxiety [9] Normal [facility] Progress Noteon 11-09-2023 Progress Note Patient [...] min Stress: No Stress Concern Present (01/29/2023) [employer] - Occupational Stress Questionnaire Feeling of Stress : Only a little Social Connections: Socially Integrated (01/29/2023) Social Connection and Isolation Panel [NHANES] Frequency of Communication with Friends and Family: More than three times a week Frequency of Social Gatherings with Friends and Family: More than three times a week Attends Gnosticist Services: More than 4 times per year Active Member of Clubs or Organizations: Yes Attends Club or Organization Meetings: More than 4 times per year Marital Status: Intimate Partner Violence: (more content not included)... [facility] [id number] 10-22-2023 [id number] Rx sent. OARRS repor t reviewed with no discrepancies. CSA will need signed at upcoming appointment. [facility] [id number] 09/27/[address] [facility] 36on 10-22-2023 36 Agree, thank you [facility] 36 S: Patient's spoke with [facility] nurse regarding possible UTI/kind of out of [...] Patient's understands care advice. Will go to [facility] ED. No further needs at this time. Patient instructed to call back with new or worsening symptoms. Reason for Disposition ? Patient sounds very sick or weak to the triager ? Patient sounds very sick or weak to the triager Mental status change, confusion Protocols used: Urinary Hwonzepy-VEDGJ-DY, Confusion - Vvhgewgb-SCZHD-PA Normal [facility] 36on 10-17-2023 36 Unfortunately none o f the other diagnoses are appropriate for why she is needing the patch. Please let family know and may just need to pay out of pocket if they still want to use it. Normal [facility] 36 Denied due to indica tion for use not being covered which was listed in chart as closed fracture of multiple ribs on left side. Is there a different indication we can try? The denial states it is only covered for chronic back pain, postherpetic neuralgia, or diabetic neuropathic pain. Normal [facility] 36on 10-16-2023 36 PA requested for lid ocaine patch. [facility] Brain/Head without Contrasto n 10-16-2023 Brain/Head without Contrast [facility] Imaging Services [address] [place] [address] Brain/Head without Contrast MR#: [id number] Acct: [id number] Name: CJ GILLIS Rep #: [id number] : 1940 F 83 From: Augie Blair MD PCP: Dr. Raeann Parsons MD Status: REG ER Study: Brain/Head without Contrast Date of Exam: 09/30 09/23 Exam# [id number] Ordering Dr: Barry Garcia DO [id number] STUDY: CT BRAIN WITHOUT CONTRAST REASON FOR [...] Dr. Raeann Parsons MD; Barry Garcia DO Senior Litigation Paralegal: Signed Normal [facility] Emergency Department Summary on 10-16-2023 Emergency Department Summary [facility] Medical Records Department [address] [place] [address] Emergency Department Summary 10/16/23 MR#: [id number] Acct: [id number] Name: CJ GILLIS Rep #: [id number] : 1940 83 From: Barry Garcia DO [...] the fall she comes in for evaluation [facility] Medical History (Updated 10/16/23 @ 06:05 by [...] (From Vioxx) AdvReac Nausea Verified 10/16/23 01:07 Vfamjmr-GHU-UkK Reductase AdvReac Pain in Verified 10/16/23 01:07 Inhibitor (Rfuttdh-Kvm-Pxo joints Reductase Inhibitor) Surgical History (Updated 10/16/23 [...] clear to (more content not included)... Normal [facility] Forearm 2 Viewson 10-16-2023 Forearm 2 Views [facility] Imaging Services [address] [place] [address] Forearm 2 Views MR#: [id number] Acct: [id number] Name: CJ GILLIS Rep #: [id number] : 1940 F 83 From: Augie Blair MD PCP: Dr. Raeann Parsons MD Status: REG ER Study: Forearm 2 Views Date of Exam: 10/16/23 Exam# [id number] Ordering Dr: Barry Garcia DO [id number] STUDY: X-RAY - LEFT RADIUS AND ULNA [...] 3:07 EDT Reading Location ID and State: [address] [place] [address] , Service support , CC: Dr. Raeann Parsons MD; Barry Garcia DO Senior Litigation Paralegal: Signed Normal [facility] Humerus min 2 Viewson 2023 Humerus min 2 Views [facility] Services [address] [place] [id number] Humerus min 2 Views MR#: [id number] Acct: [id number] Name: CJ GILLIS Rep #: [id number] : 1940 F 83 From: Augie Blair MD PCP: Dr. Raeann Parsons MD Status: REG ER Study: Humerus min 2 Views Date of Exam: 10/16/23 Exam# [id number] Ordering Dr: Barry Garcia DO [id number] STUDY: X-RAY - LEFT HUMERUS REASON FOR [...] 2:49 EDT Reading Location ID and State: [address] [place] [address] , Service support , CC: Dr. Raeann Parsons MD; Barry Garcia DO Senior Litigation Paralegal: Signed Normal [facility] Pelvis 1 or 2 Viewson 2023 Pelvis 1 or 2 Views [facility] Imaging Services [address] [place] [address] Pelvis 1 or 2 Views MR#: [id number] Acct: [id number] Name: CJ GILLIS Rep #: [id number] : 1940 F 83 From: Augie Blair MD PCP: Dr. Raeann Parsons MD Status: REG ER Study: Pelvis 1 or 2 Views Date of Exam: 10/16/23 Exam# [id number] Ordering Dr: Barry Garcia DO [id number] STUDY: X-RAY - PELVIS REASON FOR EXAM: [...] Signed: Augie Blair MD at 2:47 EDT Reading Location ID and State: [facility] / [place] , Service support , CC: Dr. Raeann Parsons MD; Barry Garcia DO Senior Litigation Paralegal: Signed Normal [facility] Ribs Uni Min 3V w/PA Cheston 10-16-2023 Ribs Uni Min 3V w/PA Chest [facility] Imaging Services [address] [place] [address] Ribs Uni Min 3V w/PA Chest MR#: [id number] Acct: [id number] Name: CJ GILLIS Rep #: [id number] : 1940 F 83 From: Augie Blair MD PCP: Dr. Raeann Parsons MD Status: REG ER Study: Ribs Uni Min 3V w/PA Chest Date of Exam: 10/15 Exam# [id number] Ordering Dr: Barry Garcia DO [id number] STUDY: X-RAY - UNILATERAL RIBS ( LEFT [...] 3:12 EDT Reading Location ID and State: [address] [place] [address] , Service support , CC: Dr. Raeann Parsons MD; Barry Garcia DO Senior Litigation Paralegal: Signed Normal [facility] Spine Cervical without Contr ason 10-16-2023 Spine Cervical without Contras [facility] Imaging Services [address] [place] [id number] Spine Cervical without Contras MR#: [id number] Acct: [id number] Name: CJ GILLIS Rep #: [id number] : 1940 F 83 From: Augie Blair MD PCP: Dr. Raeann Parsons MD Status: REG ER Study: Spine Cervical without Contras Date of Exam: 0 10/16/23 Exam# [id number] Ordering Dr: Barry Garcia DO [id number] STUDY: CT CERVICAL SPINE WITHOUT CONTRAST REASON [...] Dr. Raeann Parsons MD; Barry Garcia DO Senior Litigation Paralegal: Signed Normal [facility] Thoracic Spine 3 Viewson Thoracic Spine 3 Views [facility] Imaging Services [address] [place] [address] Thoracic Spine 3 Views MR#: [id number] Acct: [id number] Name: CJ GILLIS Rep #: [id number] : 1940 F 83 From: Augie Blair MD PCP: Dr. Raeann Parsons MD Status: REG ER Study: Thoracic Spine 3 Views Date of Exam: 10/16/23 Exam# [id number] Ordering Dr: Barry Garcia DO [id number] STUDY: X-RAY - THORACIC SPINE REASON FOR [...] Dr. Raeann Parsons MD; Barry Garcia DO Senior Litigation Paralegal: Signed [facility] 36on 10-12-2023 36 Prescription Request : Last medication check: none Last physical exam: 01/29/23 Next scheduled appointment: 11/09/23 Last date of refill on this medication 04/18/23 [facility] [id number] 09-20-2023 [id number] Prescription Request : Last medication check: 03/16/23 Last physical exam: 01/29/23 Next scheduled appointment: 11/09/23 CSA on file (date): 09/27/22 Last urine drug screen: none Last date of refill on this medication Tramadol 08/22/23 Duloxetine 01/29/23 [facility] 36on 09-20-2023 36 Rx sent, OARRS repor t done, no inconsistencies, she does need to sign a new CS agreement before next refill [facility] Office Visiton 07-26-2023 Follow-up visit [id number] Gasper Gillis ra 1940 F Date Provider Department Center 07/26/2023 AUGIE MAHAN [facility] CS None Family History Problem Relation Age of Onset Lung cancer Mother Depression Mother High Blood Pressure Father Hyperlipidemia Father High Blood Pressure Mother Hearing loss Father Heart attack Father Heart disease Father Coronary artery disease Father Family Status - Relation Status Age at Mother Father Level of Service:27699 UT OFFICE/OUTPATIENT NEW HIGH MDM 60 MINUTES Reason for Visit and Comments: Dementia [30] [facility] PATINSon 07-26-2023 PATINS --Memory testing sco res have declined since last visit --Recommend continuing to stay physically, socially and mentally active --Follow up regularly with family doctor to optimize blood pressure, cholesterol, blood sugar. 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 Resources given today: Caregiver Relief program, home health agency list, Adult Day Program list, Elder Care Medical Oncologist list Functional Status (I: Independent, A: Assisted, [...] [] [] [x] Spouse pays bills Normal [facility] Progress Note Review of Systems Constitutional: [...] sleep disturbance. The patient is nervous/anxious. Normal [facility] Progress Note [facility] [address] [facility] [address] Dept: [phone] Dept Loc: [phone] Visit type: [facility] Initial Assessment Visit Date: 07/26/2023 Reason for Visit: Dementia Assessment and Plan 1. Mixed Alzheimer's and vascular dementia (HCC) - [facility] - MMSE today with a score [...] at home for as long as possible- plugger worker discussed possible options for increased supports/respite, [...] 83 y.o. female who presents to the [facility] for a comprehensive geriatric assessment. 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 [address] 07-17-2023 36 Reviewed chart. Refi ll appropriate. Rx sent. [place] [address] Prescription Request : Last medication check: 03/16/23 Last physical exam: 01/29/23 Next scheduled appointment: 08/03/23 Last date of refill on this medication 01/18/[address] 07-11-2023 36 Rx sent. Follow up a s scheduled. [place] [address] Prescription Request : Last medication check: none Last physical exam: 01/29/23 Next scheduled appointment: 08/03/23 Last date of refill on this medication 01/12/23 90 day 1 refill (documented that pt is taking 5mg every day) [address] 07-06-2023 36 Scheduled 07/26/23. [address] 07-05-2023 36 Name of Caller: Taniya brice Contact Reason for Appointment: Returning call to schedule appointment. Please advise. Office Name: Senior Services Medication Refills need, if any: NA Medication Name: NA [facility] 36 Prescription Request : Last medication check: none Last physical exam: 01/29/23 Next scheduled appointment: 08/03/23 Last date of refill on this medication 07/10/22 90 day [address] 06-22-2023 36 Attempted to contact Guerita with no answer. LM to return my call. Will send [employer] message as well. [facility] [id number] 06-21-2023 [id number] Prescription Request : Last medication check: 03/16/23 Last physical exam: 01/29/23 Next scheduled appointment: 08/03/23 Last date of refill on this medication 05/28/23 CSA 09/27/[address] 06-21-2023 36 Rx sent, OARRS repor t done, no inconsistencies, CS agreement in place but this will not be able to be picked up until the . [facility] Urinalysis macro (dipstick) panel (U)Ordered By: Zonia Jordan on 06-20-2023 Bilirubin, UA Negative [facility] h Blood, UA Negative [facility] Glucose, UA Negative [facility] Ketones, POC (mg/dL) Negative [facility] Leukocytes, UA Trace [facility] Nitrite, UA Negative [facility] pH, UA 5.0 [facility] Protein, UA Negative [facility] Spec Grav, UA 1.030 [facility] Urobilinogen, [facility]A 0.2 [facility] Radiology Study observation (narrative) [facility] [id number] 05-28-2023 [id number] Rx sent. OARRS repor t reviewed with no discrepancies. CSA signed in August 2022. [facility] [id number] 05-27-2023 [id number] Prescription Request : Last medication check: 03/16/23 Last physical exam: 01/29/23 Next scheduled appointment: 08/03/23 Last date of refill on this medication 04/27/23 CSA 09/27/22 [facility] 36on 05-17-2023 36 Refused, this was se nt in 2 days ago [facility] 36 Prescription Request : Last medication check: 03/16/23 Last physical exam: 01/29/23 Next scheduled appointment: 08/03/23 Last date of refill on this medication 05/15/23 PHARMACY REQUESTING 90 DAY SUPPLY [facility] 36on 05-16-2023 36 Please advise, do yo u want an in office UA and culture? [facility] 36on 05-08-2023 36 Called and spoke to Daylin, she states she didn't receive the info, I verified the fax number and sent via [employer]Dreamsx. Asked her to call me tomorrow if she doesn't receive this. [place] [address] Faby's information w as faxed in March 21, we had to refax 1 page with the signature on May 01 that stuff should all be there. [place] [address] Name of caller: Daniel ojeda Contact phone number: [phone] Relationship to Patient: Spouse Provider: Dr. Herron Practice: [facility] Chief Complaint/Reason for Call: The patient is calling for an update on the patient order for diabetic shoes. Sukumar states he requested an order at 3 months ago. The patient wants the order to go to [facility] in [place]. Also, the patient states Daylin needs documentation from the office. Please call Daylin to advise. Note: [facility] in [place] Daylin Phone; [phone] ext home and health Fax; [phone] Best time of day caller can be reached: anytime [facility] 36on 04-30-2023 36 Signed [place] [address] Printed and put on y our desk to sign. [place] [address] Name of caller: Shoshana faye Contact phone number: [phone] Ext. 3 Relationship to Patient: [facility] Provider: Dr. Herron Practice: [facility] Chief Complaint/Reason for Call: Caller stated that she needs a print out of first page of office notes from 01.29.2023, Dr. Herron needs to date and sign first page and fax. Please fax to: [phone]. Please advise. Thank you Best time of day caller can be reached: any Patient advised that office/PCP has 24-48 business hours to return their call: Yes [facility] 36on 04-18-2023 36 Rx sent. Follow up a s scheduled. [place] [address] Prescription Request : Last medication check: 03/16/23 Last physical exam: 01/29/23 Next scheduled appointment: 08/03/23 Last date of refill on this medication 10/23/22 90 day 1 refill [facility] 36on 03-27-2023 36 Reviewed chart. Refi ll appropriate. RX sent. [place] [address] Prescription Request : Last medication check: 03/16/23 Last physical exam: 01/29/23 Next scheduled appointment: 08/03/23 CSA on file (date): 09/27/22 Last urine drug screen: none Last date of refill on this medication 01/19/23 90 tablets no refill [facility] 36on 03-21-2023 36 Addressed. [facility] 36 Name of caller: Shoshana faye Contact phone number: [phone] ext 3 Relationship to Patient: kallie Ha in [facility] Provider: Dr Herron Practice: [facility] Chief Complaint/Reason for Call: Daylin states there was an issues with the forms faxed over to them this morning regarding patients diabetic shoes. Please call back and advise. Best time of day caller can be reached: any Patient advised that office/PCP has 24-48 business hours to return their call: Yes [facility] 36on 03-16-2023 36 ----- Message from CHONG Culver CNP sent at 03/16/2023 8:40 AM EST ----- UA positive for blood and white blood cells. Will send urine for culture and Rx sent for Cipro. [facility] Office Visiton 03-16-2023 Follow-up visit [id number] Gasper Gillis ra 1940 F Date Provider Department Center 03/16/2023 85579-ZFGGIRUBINA MOORE [facility] Family History Problem Relation Age of Onset Lung cancer Mother Depression Mother High Blood Pressure Father Hyperlipidemia Father High Blood Pressure Mother Hearing loss Father Heart attack Father Heart disease Father Coronary artery disease Father Family Status - Relation Status Age at Mother Father Level of Service:50241 UT OFFICE/OUTPATIENT ESTABLISHED MOD MDM 30-39 MIN Reason for Visit and Comments: Blood Work [110803] Depression [32] Health Maintenance [872] - Declines flu vaccine, has not had an RSV vaccine Normal [facility] Progress Noteon 03-16-2023 Progress Note Patient was verified by name and . Normal [facility] Progress Note 03/16/2023 Cj Gillis (: [...] authenticate this note. Rubina Moore APRN - COTTAGE CHEESE MAKER 03/16/2023 8:23 AM Normal [facility] Urinalysis macro (dipstick) panel (U)on 03-16-2023 Bilirubin, UA Negative [facility] Blood, UA Moderate [facility] [facility] Glucose, UA Negative [facility] Interpretation and review of laboratory results Abnormal [facility] Ketones, POC (mg/dL) Negative [facility] Leukocytes, UA Large [facility] Nitrite, UA Negative [facility] pH, UA 5.0 [facility] Protein, UA Negative [facility] Spec Grav, UA 1.025 [facility] Urob[facility], UA 0.2 [facility] CNOVon 03-05-2023 CNOV Office Visit (PODIWS ) CJ GILLIS ([id number]) 1940 F Date Time Provider Department 03/05/23 8:45 AM LYNETTE SANTIAGO PODIWS During your visit today, we recorded [...] and fax results to Dr. Sprague at [phone] No current facility-administered medications for this visit. ALLERGIES Allergen Reactions Celecoxib PALPITATIONS Lipitor [Atorvastat* Other: See Comments Suspects lipitor decreases her hearing loss and tinnitus and liver spots. Morphine GI Upset Opioids-Meperidine * GI Upset Rofecoxib PALPITATIO;NS PAST SURGICAL HISTORY Procedur (more content not included)... Normal [facility] Bacteria identified Cx Nom ( U)on 01-31-2023 Interpretation and review of laboratory results Abnormal [facility] Urine culture (clean catch)o n 01-31-2023 Bacteria identified Cx Nom (U) SEE NOTE Abnormal [facility] Comment on above: CULTURE, URINE, ROUTINE Micro Number: [id number] Test Status: Final Specimen Source: Urine, clean [...] [Ratio] 12.1 % 11.0 - 15.0 % [facility] Hematocrit (Bld) [Volume fraction] 36.7 % 35.0 - 45.0 % [facility] Hemoglobin (Bld) [Mass/Vol] 12.4 g/dL 11.7 - 15.5 g/dL [facility] MCH (RBC) [Entitic mass] 31.2 pg 27.0 - 33.0 pg [facility] MCHC (RBC) [Mass/Vol] 33.8 g/dL 32.0 - 36.0 g/dL [facility] MCV (RBC) [Entitic vol] 92.4 fL 80.0 - 100.0 fL [facility] Platelet mean volume (Bld) [Entitic vol] 11.1 fL 7.5 - 12.5 fL [facility] Platelets (Bld) [#/Vol] 298 10*3/uL [facility] RBC (Bld) [#/Vol] 3.97 10*6/uL [facility] WBC (Bld) [#/Vol] 7.3 10*3/uL [facility] Comprehensive metabolic 1998 panelon 01-30-2023 Albumin [Mass/Vol] 4.3 g/dL 3.6 - 5.1 g/dL [facility] Albumin/Globulin [Mass ratio] 1.4 {ratio} [facility] ALP [Catalytic activity/Vol] 73 U/L 37 - 153 U/L [facility] ALT [Catalytic activity/Vol] 8 U/L 6 - 29 U/L [facility] AST [Catalytic activity/Vol] 10 U/L 10 - 35 U/L [facility] Bilirubin [Mass/Vol] 0.3 mg/dL 0.2 - 1 .2 mg/dL [facility] Calcium [Mass/Vol] 9.5 mg/dL 8.6 - 10. 4 mg/dL [facility] Chloride [Moles/Vol] 103 mmol/L 98 - 11 0 mmol/L [facility] CO2 [Moles/Vol] 27 mmol/L 20 - 32 mmol/L [facility] Creatinine [Mass/Vol] 0.54 mg/dL Low 0.60 - 0.95 mg/dL [facility] GFR/1.73 sq M.predicted among non-blacks MDRD (S/P/Bld) [Vol rate/Area] 92 mL/min/{1.73_m2} > OR = 60 mL/min/1.7 3m2 [facility] Globulin (S) [Mass/Vol] 3.0 g/dL [facility] Glucose [Mass/Vol] 186 mg/dL High 65 - 99 mg/dL [facility] Comment on above: Fasting reference interval For someone without known diabetes, a glucose value >125 mg/dL indicates that they may have diabetes and this should be confirmed with a follow-up test. Potassium [Moles/Vol] 4.2 mmol/L 3.5 - 5.3 mmol/L [facility] Protein [Mass/Vol] 7.3 g/dL 6.1 - 8.1 g/dL [facility] Sodium [Moles/Vol] 139 mmol/L 135 - 146 mmol/L [facility] Urea nitrogen [Mass/Vol] 12 mg/dL 7 - 25 mg/dL [facility] Urea nitrogen/Creatinine [Mass ratio] 22 mg/mg [facility] Hemoglobin A1con 01-30-2023 HbA1c (Bld) [Mass fraction] 7.6 % High NINF [facility] Comment on above: For someone without known [...] panelon 3 Cholesterol [Mass/Vol] 237 mg/dL High [facility] - 200 mg/dL [facility] Cholesterol in HDL [Mass/Vol] 43 mg/dL Low > OR = 50 [facility] Cholesterol in LDL [Mass/Vol] 164 mg/dL High mg/dL (calc) [facility] Comment on above: Reference range: <10 0 Desirable range <100 mg/dL for primary prevention; <70 mg/dL for patients with CHD or diabetic patients with > or = 2 CHD risk factors. LDL-C is now calculated using the Stefano calculation, which is a validated novel method providing better accuracy than the Friedewald equation in the estimation of LDL-C. Owen LANDEROS et al. HARJINDER. 2013;310(19): 1256-0462 (http://education.iMedia.fm.Crowdx/faq/VOR147) Cholesterol non HDL [Mass/Vol] 194 mg/dL High [facility] Comment on above: For patients with di abetes plus 1 major ASCVD risk factor, treating to a non-HDL-C goal of <100 mg/dL (LDL-C of <70 mg/dL) is considered a therapeutic option. Cholesterol.total/Cho lesterol in HDL [Mass ratio] 5.5 {ratio} High [facility] Triglyceride [Mass/Vol] 151 mg/dL High [facility] - 150 mg/dL [facility] No Panel Informationon 01-30 Interpretation and review of laboratory results Abnormal [facility] Urinalysis macro (dipstick) panel (U)on 01-29-2023 Bilirubin, UA Negative [facility] h Blood, UA Small [facility] Glucose, UA Negative [facility] Interpretation and review of laboratory results Abnormal [facility] Ketones, UA (mg/dL) Negative Abnormal [facility] Leukocytes, UA Moderate [facility] th Nitrite, UA Positive [facility] pH, UA 6.0 [facility] Protein, UA Negative [facility] Spec Grav, UA 1.030 [facility] Urobilinogen, UA 0.2 [facility] Bacteria identified Cx Nom ( U)on 06-15-2022 Interpretation and review of laboratory results Abnormal [facility] Urine culture (clean catch)o n 06-15-2022 Bacteria identified Cx Nom (U) SEE NOTE Abnormal [facility] Comment on above: CULTURE, URINE, ROUTINE Micro Number: [id number] Test Status: Final Specimen Source: Urine, clean [...] (dipstick) panel (U)on 06-12-2022 Bilirubin, UA Negative [facility] Blood, UA Small [facility] Glucose, UA Negative [facility] Interpretation and review of laboratory results Abnormal [facility] Ketones, UA Negative [facility] Leukocytes, UA Moderate [facility] th Nitrite, UA Negative [facility] pH, UA 6.0 [facility] Protein, UA Negative [employer] [facility] Spec Grav, UA 1.030 [facility] Urobilinogen, UA 0.2 [facility] XR Ribs - right Views and Ch est PAon 01-10-2021 IMPRESSION: Right ri bs appear intact. Lungs appear clear. Senior Litigation Paralegal: JAYDA Transcribe Date/Time: Jan 10 2021 12:24P [...] right humeral head. DIVISION OF RADIOLOGY Provider, [facility]10/[facility]21 * * *Final Report* * [...] Right ribs appear intact. Lungs appear clear. Senior Litigation Paralegal: JADYA Transcribe Date/Time: Jan 10 2021 12:24P Dictated by : SIDNEY FAITH MD This examination was interpreted and the report reviewed and electronically signed by: SIDNEY FAITH MD on Jan 10 2021 12:27PM EST [facility] Radiology Study observation (narrative) [facility] XR Ribs - right Views and Ch est PAOrdered By: Ccf Provider on 01-10-2021 [facility] CULTURE BLOODon 10-27-2020 Microscopic examination of blood, culture CULTURE BLOOD --> Status: F No growth at 5 days. Normal [facility] Comment on above: Performed By: #### C /BLD #### [facility] [address] [place] [address] CULTURE BLOOD (Two)on 2020 Microscopic examination of blood, culture CULTURE BLOOD (Two) --> Status: F No growth at 5 days. Normal [facility] Comment on above: Performed By: #### C /BLT ####[address] [place] [address] Glucose, Bedsideon Confirmation see below Normal [facility] Comment on above: Result Comment: No c onfirmation received. Performed By: #### G LUB #### [facility] [address] [place] [address] Glucose,Bedside > 450 High 70-100 [facility] Comment on above: Result Comment: Test performed by glucose meter. Results may be 10%-15% lower than serum/plasma values. (CLIA ID [id number]) Performed By: #### G LUB #### [facility] [address] [place] [address] CT Abdomen and Pelvis W cont rast IVOrdered By: Nani Villareal on 10-21-2020 Patient Name: CJ GILLIS Computed Tomography ACCESSION EXAM DATE/TIME PROCEDURE ORDERING PROVIDER [id number] 10/21/2020 14:[address] Abdomen/Pelvis w/ IV MD DIONNA, NANI Ortiz Contrast (IV Onl CPT code 54520 Q9967 Reason For Exam (CT Abdomen/Pelvis w/ [...] Phone: Laci, [facility] Incoming [facility] Results From [facility] - 10/21/2020 3:18 PM EDT Patient Name: CJ GILLIS Computed Tomography ACCESSION EXAM DATE/TIME PROCEDURE ORDERING PROVIDER [id number] 10/21/2020 14:[address] Abdomen/Pelvis w/ IV MD DIONNA, NANI Ortiz Contrast (IV Onl CPT code 80555 Q9967 Reason For Exam (CT Abdomen/Pelvis w/ [...] Abdomen/Pelvis w/ Contrast [facility]: [id number] Computed Tomography ACCESSION EXAM DATE/TIME PROCEDURE ORDERING PROVIDER [id number] 10/21/2020 14:[address] Abdomen/Pelvis w/ IV MD DIONNA, NANI Ortiz Contrast (IV Onl CPT code 50096 Q9967 Reason For Exam (CT Abdomen/Pelvis w/ [...] Date and Time: 10/21/2020 3:18 Normal [facility] Comp Metabolic Panelon 10-21 Calcium [Mass/Vol] 9.6 mg/dL Normal 8.4-10.4 [facility] Comment on above: Performed By: #### Arin TONY CMP3, HEMDF #### [facility] [address] [place] [address] ALP [Catalytic activity/Vol] 73 U/L Normal 38-126 [facility] Comment on above: Performed By: #### Arin TONY CMP3, HEMDF #### [facility] [address] [place] [address] ALT [Catalytic activity/Vol] 12 U/L Normal 0-34 [facility] Comment on above: Result Comment: The ALT test is performed by an updated assay method. Please note that the reference intervals have been changed and are now sex specific. Performed By: #### Arin TONY CMP3, HEMDF #### [facility] [address] [place] [address] Anion gap [Moles/Vol] 6 mmol/L Normal 3-13 [facility] Comment on above: Performed By: #### Arin TONY CMP3, HEMDF #### [facility] [address] [place] [address] AST [Catalytic activity/Vol] 30 U/L Normal 15-46 [facility] Comment on above: Performed By: #### Arin TONY CMP3, HEMDF #### [facility] [address] [place] [address] Bilirubin [Mass/Vol] 0.4 mg/dL Normal 0.2-1.3 [facility] Comment on above: Performed By: #### Airn TONY CMP3, HEMDF #### [facility] [address] [place] [address] CO2 [Moles/Vol] 25 mmol/L Normal 22-30 [facility] Comment on above: Performed By: #### Arin TONY CMP3, HEMDF #### [facility] [address] [place] [address] Glucose [Mass/Vol] 225 mg/dL High 70-100 [facility] Comment on above: Performed By: #### Arin TONY CMP3, HEMDF #### [facility] [address] [place] [address] Protein [Mass/Vol] 7.4 g/dL Normal 6.3-8.2 [facility] Comment on above: Performed By: #### Arin TONY CMP3, HEMDF #### [facility] [address] [place] [address] Urea nitrogen [Mass/Vol] 29 mg/dL High 7-20 [facility] Comment on above: Performed By: #### Arin TONY CMP3, HEMDF #### [facility] [address] [place] [address] Creatinine [Mass/Vol] 0.81 mg/dL Normal 0.52-1.25 [facility] Comment on above: Performed By: #### Arin TONY CMP3, HEMDF #### [facility] [address] [place] [address] GFR/1.73 sq M.predicted among blacks MDRD (S/P/Bld) [Vol rate/Area] 79.2 mL/min/{1.73_m2} Normal >60 [facility] Comment on above: Performed By: #### T CECILY, CMP3, HEMDF #### [facility] [address] [place] [address] GFR/1.73 sq M.predicted among non-blacks MDRD (S/P/Bld) [Vol rate/Area] 68.3 mL/min/{1.73_m2} Normal >60 [facility] Comment on above: Result Comment: KDIG O [...] renal tubular creatinine secretion. Performed By: #### JAY GONZALES, HEMDF #### [facility] [address] [place] [address] Albumin [Mass/Vol] 4.2 g/dL Normal 3.5-5.0 [facility] Comment on above: Performed By: #### Arin TONY CMP3, HEMDF #### [facility] [address] [place] [address] Chloride [Moles/Vol] 105 mmol/L Normal 98-107 [facility] Comment on above: Performed By: #### Arin TONY CMP3, HEMDF #### [facility] [address] [place] [address] Potassium [Moles/Vol] 3.9 mmol/L Normal 3.5-5.1 [facility] Comment on above: Performed By: #### Arin TONY CMP3, HEMDF #### [facility] [address] [place] [address] Sodium [Moles/Vol] 136 mmol/L Normal 135-145 [facility] Comment on above: Performed By: #### Arin TONY CMP3, HEMDF #### [facility] [address] [place] [address] Comprehensive Metabolic Pane lOrdered By: Astrid neal 10-21-2020 Albumin [Mass/Vol] 4.2 g/dL 3.5 - 5.0 g/dL [facility] Work Phone: [phone] ALP (Bld) [Catalytic activity/Vol] 73 U/L 38 - 126 U/L [facility] Work Phone: [phone] ALT [Catalytic activity/Vol] 12 U/L 0 - 34 U/L [facility] Work Phone: [phone] Comment on above: The ALT test is perf ormed by an updated assay method. Please note that the reference intervals have been changed and are now sex specific. Anion gap [Moles/Vol] 6 mmol/L 3 - 13 mmol/L [facility] Work Phone: [phone] AST [Catalytic activity/Vol] 30 U/L 15 - 46 U/L [facility] Work Phone: [phone] Bilirubin [Mass/Vol] 0.4 mg/dL 0.2 - 1 .3 mg/dL [employer] Work Phone: [phone] Calcium [Mass/Vol] 9.6 mg/dL 8.4 - 10. 4 mg/dL [facility] Work Phone: [phone] Chloride [Moles/Vol] 105 mmol/L 98 - 10 7 mmol/L [facility] Work Phone: [phone] CO2 [Moles/Vol] 25 mmol/L 22 - 30 mmol/L [employer] Work Phone: [phone] Creatinine [Mass/Vol] 0.81 mg/dL 0.52 - 1.25 mg/dL [employer] Work Phone: [phone] EGFR IF NonAfrican Citizen Of [place] 68.3 mL/min >60 [facility] Work Phone: Comment on above: KDIGO guidelines [...] 6.3 - 8.2 g/dL [facility] Work Phone: [phone] GFR/1.73 sq M.predicted among blacks MDRD (S/P/Bld) [...] 29 mg/dL High 7 - 20 mg/dL [facility] Work Phone: Test Performed by [address] [address] [facility] Work Phone: [facility] Work Phone: ED Provider Noteon 1 ED Provider Note Emergency Department Encounter [facility] ED Patient: Cj Gillis : 1940 Date [...] are mis-transcribed.) NANI VILLAREAL MD Acute Care [facility] Nani Villareal MD 10/21/[address] [facility] ED Provider Note Emergency Department Encounter Location: [facility] ED Patient: Cj Gillis : 1940 Date [...] and signs of proctosigmoiditis. Patient admitted to [facility] for IV antibiotics. I have reviewed and [...] eGFR 79.2 >60 mL/min EGFR IF NonAfrican Citizen Of [place] 68.3 >60 mL/min Calcium 9.6 8.4 - [...] # 1.3 1.0 - 4.3 10*3/uL [facility] [place] # 0.8 0.0 - 0.8 10*3/uL Absolute Eos # 0.1 0.0 - 0.5 10*3/uL Absolute Baso # 0.0 0.0 - 0.2 10*3/uL Troponin x1 Result Value Ref Range Troponin I <0.012 0.000 - 0.034 ng/mL CT Abdomen Pelvis W Contrast Result Date: 10/21/2020 Patient Name: CJ GILLIS Computed Tomography ACCESSION EXAM DATE/TIME PROCEDURE ORDERING PROVIDER [id number] 10/21/2020 14:[address] Abdomen/Pelvis w/ IV MD DIONNA, NANI Ortiz Contrast (IV Onl CPT code 38989 Q9967 Reason For Exam (CT Abdomen/Pelvis w/ [...] Transcr (more content not included)... Normal [facility] ED [facility] eNCOUnter Pt Name: Cj [...] TAKE 1 TABLET DAILY INCONTINENCE SUPPLY DISPOSABLE ([employer] HEALTH INCONTINENCE PADS) MISC 100 each by [...] Hearing L (more content not included)... Normal [facility] Hemogram (CBC) w/Auto DiffOr dered By: Astrid Da Silva on 10-21-2020 Absolute Baso # 0.0 10*3/uL 0.0 - 0.2 10*3/uL [facility] Work Phone: [phone] Absolute Neut # 15.2 10*3/uL High 1.8 - 7.0 10*3/uL [facility] Work Phone: [phone] Basophils/100 WBC (Bld) 0.3 % 0.0 - 2.0 % [facility] Work Phone: [phone] Eosinophils (Bld) [#/Vol] 0.1 10*3/uL 0.0 - 0.5 10*3/uL [facility] Work Phone: Eosinophils/100 WBC (Bld) 0.3 % Low 1.0 - 6.0 % [facility] Phone: [phone] Granulocytes/100 WBC (Bld) 87.7 % High 40.0 - 80.0 % [facility] Work Phone: [phone] Hematocrit (Bld) [Volume fraction] 41.2 % 35.0 - 47.0 % [facility] Work Phone: [phone] Hemoglobin.gastrointe stinal spec 1 Ql (Stl) 13.8 g/dL 11.7 - 16.0 g/dL [facility] Work Phone: [phone] Interpretation and review of laboratory results Abnormal [facility] Work Phone: [phone] Lymphocytes (Bld) [#/Vol] 1.3 10*3/uL 1.0 - 4.3 10*3/uL [employer] [employer] Work Phone: [phone] Lymphocytes/100 WBC (Bld) 7.3 % Low 20.0 - 40.0 % [facility] Work Phone: MCH (RBC) [Entitic mass] 30.3 pg 26.0 - 34.0 pg [facility] Work Phone: MCHC (RBC) [Mass/Vol] 33.4 % 32.0 - 36.0 % [facility] Work Phone: MCV (RBC) [Entitic vol] 90.8 fL 79.0 - 98.0 fL [employer] Work Phone: Monocytes (Bld) [#/Vol] 0.8 10*3/uL 0.0 - 0.8 10*3/uL [employer] Work Phone: [phone] Monocytes/100 WBC (Bld) 4.4 % 2.0 - 10.0 % [employer] Work Phone: Platelet distribution width (Bld) [Ratio] 13.0 % 11.5 - 14.5 % [facility] Work Phone: Platelet mean volume (Bld) [Entitic vol] 8.4 fL 7.4 - 10.4 fL [facility] Work Phone: Platelets (Bld) [#/Vol] 260 10*3/uL 140 - 440 10*3/uL [employer] Work Phone: RBC (Bld) [#/Vol] 4.54 10*6/uL 3.80 - 5.20 10*6/uL [facility] Work Phone: WBC (Bld) [#/Vol] 17.3 10*3/uL High 3.6 - 10.7 10*3/uL [facility] Work Phone: Test Performed by [facility], [address] [place], [place] [address] [employer] Work Phone: [employer] Work Phone: Hemogram w/ Autodiffon 10-21 Abs Baso Cnt 0.0 10*3/uL Normal 0.0-0.2 [facility] Comment on above: Performed By: #### T CECILY CMP3, HEMDF #### [facility] [address] [place] [address] Abs Neutrophile Cnt 15.2 10*3/uL High 1.8-7.0 [facility] Comment on above: Performed By: #### T CECILY CMP3, HEMDF #### [facility] [address] [place] [address] Basophils/100 WBC (Bld) 0.3 % Normal 0.0-2.0 [facility] Comment on above: Performed By: #### T CECILY CMP3, HEMDF #### [facility] [address] [place] [address] Eosinophils (Bld) [#/Vol] 0.1 10*3/uL Normal 0.0-0.5 [facility] Comment on above: Performed By: #### Arin TONY CMP3, HEMDF #### [facility] [address] [place] [address] Eosinophils/100 WBC (Bld) 0.3 % Low 1.0-6.0 [facility] Comment on above: Performed By: #### Arin TONY CMP3, HEMDF #### [facility] [address] [place] [address] Erythrocyte distribution width (RBC) [Ratio] 13.0 % Normal 11.5-14.5 [facility] Comment on above: Performed By: #### Arin TONY CMP3, HEMDF #### [facility] [address] [place] [address] Granulocytes/100 WBC (Bld) 87.7 % High 40.0-80.0 [facility] Comment on above: Performed By: #### T CECILY CMP3, HEMDF #### [facility] [address] [place] [address] Hematocrit (Bld) [Volume fraction] 41.2 % Normal 35.0-47.0 [facility] Comment on above: Performed By: #### T CECILY CMP3, HEMDF #### [facility] [address] [place] [address] Hemoglobin (Bld) [Mass/Vol] 13.8 g/dL Normal 11.7-16.0 [facility] Comment on above: Performed By: #### Arin TONY CMP3, HEMDF #### [facility] [address] [place] [address] Lymphocytes (Bld) [#/Vol] 1.3 10*3/uL Normal 1.0-4.3 [facility] Comment on above: Performed By: #### Arin TONY, CMP3, HEMDF #### [facility] [address] [place] [address] Lymphocytes/100 WBC (Bld) 7.3 % Low 20.0-40.0 [facility] Comment on above: Performed By: #### Arin TONY, CMP3, HEMDF #### [facility] [address] [place] [address] MCH (RBC) [Entitic mass] 30.3 pg Normal 26.0-34.0 [facility] Comment on above: Performed By: #### Arin TONY CMP3, HEMDF #### [facility] [address] [place] [address] MCHC 33.4 % Normal 32.0-36.0 [facility] Comment on above: Performed By: #### Arin TONY, CMP3, HEMDF #### [facility] [address] [place] [address] MCV (RBC) [Entitic vol] 90.8 fL Normal 79.0-98.0 [facility] Comment on above: Performed By: #### Arin TONY, CMP3, HEMDF #### [facility] [address] [place] [address] Monocytes (Bld) [#/Vol] 0.8 10*3/uL Normal 0.0-0.8 [facility] Comment on above: Performed By: #### T CECILY, CMP3, HEMDF #### [facility] [address] [place] [address] Monocytes/100 WBC (Bld) 4.4 % Normal 2.0-10.0 [facility] Comment on above: Performed By: #### T CECILY, CMP3, HEMDF #### [facility] [address] [place] [address] Platelet mean volume (Bld) [Entitic vol] 8.4 fL Normal 7.4-10.4 [facility] Comment on above: Performed By: #### T CECILY, CMP3, HEMDF #### [facility] [address] [place] [address] Platelets (Bld) [#/Vol] 260 10*3/uL Normal 140-440 [facility] Comment on above: Performed By: #### T CECILY, CMP3, HEMDF #### [facility] [address] [place] [address] RBC (Bld) [#/Vol] 4.54 10*6/uL Normal 3.80-5.20 [facility] Comment on above: Performed By: #### Arin TONY, CMP3, HEMDF #### [facility] [address] [place] [address] WBC (Bld) [#/Vol] 17.3 10*3/uL High 3.6-10.7 [facility] Comment on above: Performed By: #### Arin TONY CMP3, HEMDF #### [facility] [address] [place] [address] Troponin Ion 10-21-2020 Troponin I.cardiac [Mass/Vol] ng/mL Normal 0.000-0.03 4 [facility] Comment on above: Result Comment: . Performed By: #### T CECILY, CMP3, HEMDF #### [facility] [address] [place] [address] Troponin [id number] By: Astrid parada on 10-21-2020 Troponin I.cardiac [Mass/Vol] ng/mL 0.000 - 0.034 ng/mL [facility] Work Phone: Comment on above: . Test Performed by [facility], [address] [place] [address] [facility] Work Phone: [facility] Work Phone: CR Wrist Complete 3 Views Bi lateralon 07-23-2020 CR Wrist Complete 3 Views Bilateral Patient Name: CJ GILLIS Diagnostic Radiology ACCESSION EXAM DATE/TIME PROCEDURE ORDERING PROVIDER [id number] 07/23/2020 14:55 EDT CR Wrist Complete 3 OSCAR, RUBINA PALACIOS S Views Bilateral CPT code 40474 Reason For Exam (CR Wrist Complete 3 [...] Date and Time: 07/26/2020 8:43 Normal [facility] CT Head WO Contraston 2020 Patient Name: CJ GILLIS Computed Tomography ACCESSION EXAM DATE/TIME PROCEDURE ORDERING PROVIDER [id number] 06/09/2020 14:[address] Head or Brain w/o MD SANTANA, YEYO Contrast CPT code 76328 Reason For Exam (CT Head or Brain [...] Phone: [facility] Incoming Radiology Results From [facility] - 06/09/2020 3:26 PM EST Patient Name: CJ GILLIS [facility]#: [id number] Computed Tomography ACCESSION EXAM DATE/TIME PROCEDURE ORDERING PROVIDER [id number] 06/09/2020 14:[address] Head or Brain w/o MD SANTANA, YEYO Contrast CPT code 33437 Reason For Exam (CT Head or Brain [...] Brain w/o Contrast [facility]: [id number] Computed Tomography ACCESSION EXAM DATE/TIME PROCEDURE ORDERING PROVIDER [id number] 06/09/2020 14:[address] Head or Brain w/o MD SANTANA, YEYO Contrast CPT code 59700 Reason For Exam (CT Head or Brain [...] Date and Time: 06/09/2020 3:26 Normal [facility] Microbiology: Culture, Urine on 11-12-2016 CUUR . [facility] GE use only - for LinkLogic import when terms are not otherwise specified . Invalid Interpretation Code [facility] Office Visit: Pain following surgeryon 11-09-2016 Documentation of current medications (procedure) Done Invalid Interpretation Code [facility] Fall risk assessment No Invalid Interpretation Code [facility] Protein mass conc Done [facility] Tobacco smoking status NVIS Never Invalid Interpretation Code [facility] Tobacco smoking status NHIS Never smoker [facility] Tobacco use CPHS Never smoker Invalid Interpretation Code [facility] Vital Signs Date Time Vital Sign Value Performing Clinician Facility 02-01-2024 08:54-0400 Body height 159.4 cm Rubina Moore APRN - [employer] Work Phone: [facility] 02-01-2024 08:54-0400 Body mass index (BMI) [Ratio] 22.91 kg/m2 Rubina Moore APRN - [employer] Work Phone: [facility] 02-01-2024 08:54-0400 Body weight 58.2 kg Rubina Moore APRN - [employer] Work Phone: [facility] 02-01-2024 08:54-0400 Diastolic blood pressure 64 mm[Hg] Rubina Oscar [employer] Work Phone: [facility] 02-01-2024 08:54-0400 Heart rate 78 /min Rubina Moore [employer] Work Phone: [facility] 02-01-2024 08:54-0400 SaO2% (BldA) [Mass fraction] 98 % Rubina Moore [employer] Work Phone: [facility] 02-01-2024 08:54-0400 Systolic blood pressure 108 mm[Hg] Rubina Moore [employer] Work Phone: [employer] [facility] 11-09-2023 10:42-0400 Body height 159.4 cm Rubina Moore [employer] Work Phone: [facility] 11-09-2023 10:42-0400 Body mass index (BMI) [Ratio] 22.96 kg/m2 Rubina Moore [employer] Work Phone: [facility] 11-09-2023 10:42-0400 Body weight 58.33 kg Rubina Moore [employer] Work Phone: [employer] [facility] 11-09-2023 10:42-0400 Diastolic blood pressure 68 mm[Hg] Rubina Moore [employer] Work Phone: [employer] [facility] 11-09-2023 10:42-0400 Heart rate 74 /min Rubina Moore [employer] Work Phone: [employer] [facility] 11-09-2023 10:42-0400 SaO2% (BldA) [Mass fraction] 95 % Rubina Moore [employer] Work Phone: [employer] [facility] 11-09-2023 10:42-0400 Systolic blood pressure 102 mm[Hg] Rubina Moore [employer] Work Phone: [facility] 07-26-2023 14:54-0400 Diastolic blood pressure 57 mm[Hg] Augie Barragan [employer] Work Phone: [employer] [facility] 07-26-2023 14:54-0400 Heart rate 80 /min Augie Barragan [employer] Work Phone: [facility] 07-26-2023 14:54-0400 Systolic blood pressure 96 mm[Hg] Augie Barragan [employer] Work Phone: [facility] 07-26-2023 14:43-0400 Body height 159.4 cm Augie Barragan [employer] Work Phone: [facility] 07-26-2023 14:43-0400 Body mass index (BMI) [Ratio] 22.28 kg/m2 Augie Barragan [employer] Work Phone: [facility] 07-26-2023 14:43-0400 Body weight 56.61 kg Augie Barragan [employer] Work Phone: [facility] 03-16-2023 08:06-0500 Diastolic blood pressure 76 mm[Hg] Rubina Oscar [employer] Work Phone: [facility] 03-16-2023 08:06-0500 Systolic blood pressure 142 mm[Hg] Rubina Oscar [employer] Work Phone: [facility] 03-16-2023 07:54-0500 Body height 161.3 cm Rubina Oscar [employer] Work Phone: [facility] 03-16-2023 07:54-0500 Body mass index (BMI) [Ratio] 21.76 kg/m2 Rubina Oscar [employer] Work Phone: [facility] 03-16-2023 07:54-0500 Body weight 56.61 kg Rubina Oscar [employer] Work Phone: [facility] 03-16-2023 07:54-0500 Heart rate 75 /min Rubina Oscar [employer] Work Phone: [facility] 03-16-2023 07:54-0500 SaO2% (BldA) [Mass fraction] 98 % Rubina Moore [employer] Work Phone: [facility] 01-29-2023 11:46-0400 Diastolic blood pressure 62 mm[Hg] Rubina Moore [employer] Work Phone: [employer] [facility] 01-29-2023 11:46-0400 Systolic blood pressure 142 mm[Hg] Rubina Moore [employer] Work Phone: [employer] [facility] 01-29-2023 10:46-0400 Body height 161.3 cm Rubina Moore [employer] Work Phone: [employer] [facility] 01-29-2023 10:46-0400 Body mass index (BMI) [Ratio] 22.21 kg/m2 Rubina Moore [employer] Work Phone: [employer] [facility] 01-29-2023 10:46-0400 Body weight 57.79 kg Rubina Moore [employer] Work Phone: [facility] 01-29-2023 10:46-0400 Heart rate 65 /min Rubina Moore [employer] Work Phone: [facility] 01-29-2023 10:46-0400 SaO2% (BldA) [Mass fraction] 96 % Rubina Moore [employer] Work Phone: [employer] [facility] 11-13-2022 13:22-0400 Body height 157.5 cm Rubina Moore [employer] Work Phone: [employer] [facility] 11-13-2022 13:22-0400 Body mass index (BMI) [Ratio] 22.86 kg/m2 Rubina Moore [employer] Work Phone: [employer] [facility] 11-13-2022 13:22-0400 Body weight 56.7 kg Rubina Moore [employer] Work Phone: [employer] [facility] 11-13-2022 13:22-0400 Diastolic blood pressure 60 mm[Hg] Rubina Moore [employer] Work Phone: [employer] [facility] 11-13-2022 13:22-0400 Heart rate 70 /min Rubina Moore [employer] Work Phone: [facility] 11-13-2022 13:22-0400 SaO2% (BldA) [Mass fraction] 96 % Rubina Moore [employer] Work Phone: [facility] 11-13-2022 13:22-0400 Systolic blood pressure 122 mm[Hg] Rubina Moore [employer] Work Phone: [facility] 04-27-2022 15:42-0500 Respiratory rate 16 /min [facility] 04-27-2022 12:52-0500 SaO2% (BldA) [Mass fraction] 94 % [facility] 04-27-2022 12:18-0500 Body height 165.1 cm [facility] 04-27-2022 12:18-0500 Body mass index (BMI) [Ratio] 20.5 kg/m2 [facility] 04-27-2022 12:18-0500 Body temperature 97.5 [degF] [facility] 04-27-2022 12:18-0500 Body weight 55.77 kg [facility] 04-27-2022 12:18-0500 Diastolic blood pressure 88 mm[Hg] [facility] 04-27-2022 12:18-0500 Heart rate 86 /min [facility] 04-27-2022 12:18-0500 Systolic blood pressure 118 mm[Hg] [facility] 10-21-2020 12:13-0400 Body height 160 cm Nani Villareal MD Work Phone: [facility] Work Phone: 10-21-2020 12:13-0400 Body mass index (BMI) [Ratio] 23.03 kg/m2 Nani Villareal MD Work Phone: [facility] Work Phone: 10-21-2020 12:13-0400 Body temperature 95.5 [degF] Nani Villareal MD Work Phone: [facility] Work Phone: 10-21-2020 12:13-0400 Body weight 58.97 kg Nani Villareal MD Work Phone: [facility] Work Phone: 10-21-2020 12:13-0400 Diastolic blood pressure 76 mm[Hg] Nani Villareal MD Work Phone: [facility] Work Phone: 10-21-2020 12:13-0400 Heart rate 82 /min Nani Villareal MD Work Phone: [facility] Work Phone: 10-21-2020 12:13-0400 Respiratory rate 18 /min Nani Villareal MD Work Phone: [facility] Work Phone: 10-21-2020 12:13-0400 SaO2% (BldA) [Mass fraction] 95 % Nani Villareal MD Work Phone: [facility] Work Phone: 10-21-2020 12:13-0400 Systolic blood pressure 146 mm[Hg] Nani Villareal MD Work Phone: [facility] Work Phone: 11-09-2016 13:44-0400 BMI (Body Mass Index) 21.6 kg/m2 Kenyetta Arguelles NP [facility] 11-09-2016 13:44-0400 Body Temperature 97.2 [degF] Kenyetta Arguelles [employer] [facility] 11-09-2016 13:44-0400 BP Diastolic 65 mm[Hg] Kenyetta Arguelles [employer] [facility] 11-09-2016 13:44-0400 BP Systolic 116 mm[Hg] Kenyetta Arguelles [employer] [facility] 11-09-2016 13:44-0400 Height 166.37 cm Kenyetta Arguelles NP [facility] 11-09-2016 13:44-0400 Pulse (Heart Rate) 65 /min Kenyetta Arguelles NP [facility] 11-09-2016 13:44-0400 Respiratory Rate 16 /min Kenyetta Arguelles NP [facility] 11-09-2016 13:44-0400 Weight 59.78 kg Kenyetta Arguelles NP [facility] Encounters Encounter Date Encounter Type Care Provider Facility Start: 09-08-2024 ambulatory Demario Lopez ity:[facility] Start: 08-28-2024 End: 08-28-2024 Telephone encounter Rey Rowan MD Work Phone: [place] [facility] Adult Start: 08-28-2024 End: 08-28-2024 ambulatory REY ROWAN Facility:[facility] Start: 08-27-2024 End: 08-27-2024 Telephone encounter Jet Smart LPN Pre Anesthesia Start: 08-06-2024 End: 08-08-2024 Evaluation and management of inpatient CHAPARRO NAVA Facility:[facility] Start: 08-06-2024 End: 08-06-2024 Emergency department patient visit CARLOS HERRON Facility:[facility] Start: 08-04-2024 End: 08-04-2024 ambulatory Carlos Germaine Facility:[facility] Start: 06-12-2024 End: 06-12-[address] Carlos Herron MD Work Phone: [facility] Work Phone: Start: 06-12-2024 End: 06-12-2024 Departed Referred Demario Linares [place] [facility] [address] Start: 06-12-2024 End: 06-12-2024 ambulatory Carlos Herron Facility:[facility] Start: 05-12-2024 ambulatory [facility] Facility :[facility] Start: 05-12-2024 Registered Referred Demario crum [place] [facility] [address] Start: 03-05-2024 End: 03-05-2024 ambulatory [facility] Facility:[facility] Start: 02-15-2024 End: 02-15-2024 ambulatory [facility] Facility:[facility] Start: 02-11-2024 End: 02-11-2024 Orders Only Rubina Moore [employer] Work Phone: [facility] Start: 02-04-2024 End: 02-04-2024 Orders Only Rubina Moore [employer] Work Phone: [facility] Comment on above: Type 2 diabetes darrion itus with hyperlipidemia (HCC) (HCC); Diabetic polyneuropathy associated with diabetes mellitus due to underlying condition ([facility]/HCC) ([facility]) Start: 02-01-2024 End: 02-01-2024 Patient encounter procedure uRbina Jett Oscar [employer] Work Phone: [facility] Comment on above: Medicare annual [facility] visit, subsequent (Primary Dx); Type 2 diabetes mellitus without complication, without long-term current use of insulin ([facility]) ([facility]); Diabetic polyneuropathy associated with diabetes mellitus due to underlying condition ([facility]) ([facility]); Encounter for diabetic foot exam ([facility]); Atherosclerosis of coronary artery of [place] heart without angina pectoris, unspecified vessel or lesion type; Essential hypertension, benign; Mixed hyperlipidemia; Statin declined; Mixed Alzheimer's and vascular dementia ([facility]); Osteoarthritis, unspecified osteoarthritis type, unspecified site; Chronic pain of both feet; Mild episode of recurrent major depressive disorder ([facility]); Recurrent UTI; Mixed stress and urge urinary incontinence; Overactive bladder; Urinary frequency; Screening for deficiency anemia Start: 02-01-2024 End: 02-01-2024 ambulatory RUBINA [facility] Start: 02-01-2024 End: 02-01-2024 Encounter for general adult medical examination without abnormal findings RUBINA [facility] Start: 01-31-2024 End: 01-31-2024 Telephone encounter Rubina Jett Oscar [employer] Work Phone: [facility] Comment on above: Advice Only Start: 01-28-2024 End: 01-28-2024 Refill Rubina Jett Osacr [employer] Work Phone: [facility] Comment on above: Atherosclerosis of c oronary artery of [place] heart without angina pectoris, unspecified vessel or lesion type; Essential hypertension, benign Start: 01-21-2024 End: 01-21-2024 Orders Only Rubina S Oscar [employer] Work Phone: [facility] Start: 01-16-2024 End: 01-16-2024 ambulatory CARLOS HERRON [facility] Start: 01-10-2024 End: 01-10-2024 Refill Rubina Moore [employer] Work Phone: [facility] Start: 01-01-2024 End: 01-01-2024 Refill Elliot Cy [employer] Work Phone: [facility] Start: 01-01-2024 End: 01-01-2024 Emergency department patient visit Carlos Herron Facility:[facility] Start: 11-09-2023 End: 11-09-2023 ambulatory RUBINA MOORE [facility] Start: 11-09-2023 End: 11-09-2023 Office outpatient visit 25 minutes Rubina Moore [employer] Work Phone: [facility] Comment on above: Type 2 diabetes darrion itus without complication, without long- term current use of insulin ([facility]) ([facility]) (Primary Dx); Diabetic polyneuropathy associated with diabetes mellitus due to underlying condition ([facility]) ([facility]); Encounter for diabetic foot exam ([facility]); Mixed Alzheimer's and vascular dementia ([facility]); Osteoarthritis, unspecified osteoarthritis type, unspecified site; Chronic pain of both feet; Mild episode of recurrent major depressive disorder ([facility]); Mixed stress and urge urinary incontinence; Overactive bladder Type 2 diabetes darrion itus with hyperlipidemia ([facility]) ([facility]) (Primary Dx); Diabetic polyneuropathy associated with diabetes mellitus due to underlying condition ([facility]) ([facility]); Encounter for diabetic foot exam ([facility]); Mixed Alzheimer's and vascular dementia ([facility]); Osteoarthritis, unspecified osteoarthritis type, unspecified site; Chronic pain of both feet; Mild episode of recurrent major depressive disorder ([facility]); Mixed stress and urge urinary incontinence; Overactive bladder Start: 10-16-2023 End: 10-16-2023 Emergency department patient visit Raeann Parsons Facility:[facility] Start: 10-12-2023 End: 10-12-2023 Refill Rubina Moore [employer] Work Phone: [facility] Start: 07-26-2023 End: 07-26-2023 Office outpatient new 60 minutes Augie Barragan [employer] Work Phone: [facility] Geriatric[facility] Comment on above: Mixed Alzheimer's an d vascular dementia (HCC) Start: 07-26-2023 End: 07-26-2023 ambulatory AUGIE BARRAGAN [facility] Start: 07-05-2023 Refill Carlos Herron MD Work Phone: [facility] Medicine Start: 07-05-2023 Telephone encounter Radha Alexandra DO Work Phone: [facility] Clinical Communication Comment on above: Appointment (New Pat ient) Start: 06-22-2023 Orders Only Rubina Moore [employer] Work Phone: [facility] Medicine Comment on above: Mixed Alzheimer's an d vascular dementia (HCC) (Primary Dx) Start: 06-20-2023 Orders Only Rubina Johnie Oscar [employer] Work Phone: [facility] Comment on above: Recurrent UTI (Prima ry Dx) Start: 05-04-2023 Orders Only Rubina Johnie Oscar [employer] Work Phone: [facility] Comment on above: Hematuria, unspecifi ed type; Leukocytes in urine Start: 03-24-2023 Refill Rubina Johnie Oscar [employer] Work Phone: [facility] Comment on above: Chronic pain of both feet; Osteoarthritis, unspecified osteoarthritis type, unspecified site Start: 03-16-2023 End: 03-16-2023 Office outpatient visit 25 minutes Rubina Moore [employer] Work Phone: [facility] Medicine Comment on above: Mild episode of recu rrent major depressive disorder (HCC) (Primary Dx); Mixed hyperlipidemia; Dysuria; Urinary frequency; Essential hypertension, benign Start: 03-16-2023 End: 03-16-2023 ambulatory RUBINA MOORE [facility] Start: 03-05-2023 End: 03-05-2023 ambulatory LYNETTE SANTIAGO Facility:[facility] Start: 03-05-2023 End: 03-05-2023 Patient encounter procedure Lynette Santiago Work Phone: Podiatry Comment on above: Diabetic polyneuropa thy associated with diabetes mellitus due to underlying condition (HCC) (Primary Dx); Callus of foot; Arthritis of foot Start: 01-29-2023 End: 01-29-2023 Patient encounter procedure Rubina Moore [employer] Work Phone: [facility] Comment on above: Medicare annual well ness visit, subsequent (Primary Dx); Mixed Alzheimer's and vascular dementia ([facility]); Type 2 diabetes mellitus without complication, without long-term current use of insulin ([facility]) (HCC); Encounter for diabetic foot exam ([facility]); Atherosclerosis of coronary artery without angina pectoris, unspecified vessel or lesion type, unspecified whether [place] or transplanted heart; Essential hypertension, benign; Osteoarthritis, unspecified osteoarthritis type, unspecified site; Chronic pain of both feet; Mild episode of recurrent major depressive disorder ([facility]); Mixed stress and urge urinary incontinence; Hematuria, unspecified type; Leukocytes in urine Start: 11-13-2022 End: 11-13-2022 Orders Only Rubina Moore [employer] Work Phone: [facility] Comment on above: Unspecified fall, in itial encounter Unspecified fall, in itial encounter (Primary Dx) Start: 11-13-2022 End: 11-13-2022 Office outpatient visit 15 minutes Rubina Moore [employer] Work Phone: [facility] Comment on above: Injury due to fall, initial encounter (Primary Dx); Pain in joint of right hip Start: 11-08-2022 Orders Only Rubina Moore [employer] Work Phone: [facility] Comment on above: Leukocytes in urine (Primary Dx); Other microscopic hematuria Start: 10-31-2022 Refill Rubina Moore [employer] Work Phone: [facility] Comment on above: Mild episode of recu rrent major depressive disorder (HCC) Start: 10-09-2022 Refill Carlos Herron MD Work Phone: [facility] Start: 09-27-2022 Orders Only Rubina Moore [employer] Work Phone: [facility] Start: 07-10-2022 Refill Carlos Herron MD Work Phone: [facility] Start: 06-12-2022 Telephone encounter Katey Wiley Banner Comment on above: Urinary Problem Start: 04-27-2022 End: 04-27-2022 Emergency department patient visit [facility]-Emergency Department Start: 04-24-2022 Refill Rubina Moore [employer] Work Phone: [facility] Start: 01-10-2021 End: 01-10-2021 Subsequent hospital visit by physician [facility] Work Phone: Radiology Comment on above: Rib injury [S29.9XXA ] Start: 10-21-2020 End: 10-21-2020 Evaluation and management of inpatient Nani Villareal MD Work Phone: [facility] ED Comment on above: Proctocolitis (Prima ry Dx); Leukocytosis, unspecified type Start: 07-23-2020 End: 07-23-2020 Subsequent hospital visit by physician Rubina Moore [employer] Work Phone: [facility] Comment on above: Injury due to fall, initial encounter Start: 06-14-2020 End: 06-14-2020 Subsequent hospital visit by physician Yeyo Jackson Work Phone: General acute hospitalt Start: 06-09-2020 End: 06-09-2020 Subsequent hospital visit by physician Yeyo Jackson Work Phone: [facility] [place] Comment on above: Memory loss Start: 05-31-2020 End: 05-31-2020 Subsequent hospital visit by physician Yeyo Jackson Work Phone: [facility] Dept Procedures Date Procedure Procedure Detail Performing Clinician Start: 02-01-2024 Urnls dip stick/tabl et rgnt non-auto w/o micrscp Rubina Moore [employer] Work Phone: Start: 11-09-2023 Urine albumin quantitative Rubina Moore [employer] Work Phone: Start: 11-09-2023 Hemoglobin glycosylated a1c Rubina Moore [employer] Work Phone: Start: 06-20-2023 Urnls dip stick/tabl et rgnt non-auto w/o micrscp Rubina Moore [employer] Work Phone: Start: 03-16-2023 Urnls dip stick/tabl et rgnt non-auto w/o micrscp Rubina Moore [employer] Work Phone: Start: 01-29-2023 Culture bacterial quanttative colony count urine Rubina Moore [employer] Work Phone: Start: 01-29-2023 Urnls dip stick/tabl et rgnt non-auto w/o micrscp Rubina Moore [employer] Work Phone: Start: 01-29-2023 Comprehensive metabo lic panel Rubina Moore [employer] Work Phone: Start: 01-29-2023 Lipid panel Rubina Coker [employer] Work Phone: Start: 06-12-2022 Urnls dip stick/tabl [...] - S tayla or Plasma Rubina Moore [employer] Work Phone: Start: 01-10-2021 Radex ribs uni w/pos teroant ch minimum 3 views Shraddha Menjivar [employer] Work Phone: Start: 10-21-2020 Computed tomography of abdomen and pelvis with contrast Nani Villareal MD Work Phone: Start: 10-21-2020 Comprehensive metabo lic panel Astrid PALMER Work Phone: Start: 10-21-2020 Ecg routine ecg w/le ast 12 lds w/i&r Astrid PALMER Work Phone: Start: 06-09-2020 Ct head/brain w/o co ntrast material Yeyo M Snatana Work Phone: Start: 11-09-2016 End: 11-09-2016 Urinalysis nonauto w/o scope Kenyetta cameron [employer] Work Phone: Plan of Treatment Date Care Activity Detail Author Start: 01-31-2025 COVID-19 Vaccine () COVID-19 Vaccine () [facility] Comment on above: Postponed from 12/02/2023 (Patient Refus ed) Start: 01-31-2025 Diabetes: Estimated Glomerular Filtration Rate for Kidney Health Diabetes: Estimated Glomerular Filtration Rate for Kidney Health [facility] Start: 01-31-2025 DTaP/Tdap/Td Vaccines (1 - Tdap) DTaP/Tdap/Td Vaccines (1 - Tdap) [employer] [facility] Comment on above: Postponed from 04/03/2007 (Patient Refus ed) Start: 01-31-2025 Hepatitis B surface antibody level LDL Cholesterol [facility] Start: 01-31-2025 Pneumococcal Vaccine: 65+ Years (2 of 2 - PCV) Pneumococcal Vaccine: 65+ Years (2 of 2 - PCV) [facility] Comment on above: Postponed from 01/01/2021 (Patient Refus ed) Start: 01-31-2025 Screening for osteoporosis Bone Density Scan [facility] Comment on above: Postponed from 1940 (Patient Refus ed) Start: 01-31-2025 Zoster Vaccines (1 of 2) Zoster Vaccines (1 of 2) [facility] Comment on above: Postponed from 1990 (Patient Refus ed) Start: 12-01-2024 Influenza vaccination Influenza Vaccine (Season Ended) [facility] Start: 11-08-2024 Diabetes: Urine Albumin-Creatinine Ratio for Kidney [facility] Diabetes: Urine Albumin-Creatinine Ratio for Kidney Health [facility] Start: 11-08-2024 Hepatitis B screening Urine Albumin:Creatinine Ratio [facility] Start: 08-28-2024 End: 08-28-2024 Cysto w/insert [...] EDT - 08/28/2024 2:26 PM EDT Surgery [facility] Surgery [address] [place] [id number] Rey Rowan MD [address] [place] [address] LASER CYSTOURETHROSCOPY W/ URETEROSCOPY AND/OR PYELOSCOPY W/ LITHOTRIPSY MASTER PULSE HOLMIUM [facility] Surgery Comment on above: LASER CYSTOURETHROSCOPY W/ [...] physician 08/28/2024 12:30 PM EDT Hospital Encounter [facility] Surgery [address] [place] [address] Rey Rowan MD [address] [place] [address] Renal calculus, left [N20.0] [facility] Comment on above: Renal calculus, left [N20.0] Start: 07-31-2024 Depression Monitoring Depression Monitoring [facility] Start: 07-31-2024 Hemoglobin A1c measurement HbA1C [facility] Start: 04-02-2024 Advance Directive Discussion Advance Directive Discussion [facility] Start: 03-14-2024 RSV Immunization aged 60 or older (1 - 1-dose 60+ series) RSV Immunization aged 60 or older (1 - 1-dose 60+ series) [facility] Comment on above: Postponed from 2000 (Patient Refus ed) Start: 03-14-2024 RSV Immunization for Adults (1 - 1-dose 75+ series) RSV Immunization for Adults (1 - 1-dose 75+ series) [facility] Comment on above: Postponed from 2015 (Patient Refus ed) Start: 02-29-2024 Medicare Advantage Annual Wellness Visit (AWV) Medicare Advantage Annual Wellness Visit (AWV) [facility] Start: 02-01-2024 End: 01-31-2025 Bacteria identified in Urine by Culture Urine culture (clean catch) Microbiology Routine Recurrent UTI Expected: 02/01/2024 (Approximate), Expires: 01/31/2025 [facility] Comment on above: Expected: 02/01/2024 (Approximate), Expi res: 01/31/2025 Start: 02-01-2024 End: 01-31-2025 CBC panel - Blood by Automated count CBC Lab Routine Mixed Alzheimer's and vascular dementia (HCC) Osteoarthritis, unspecified osteoarthritis type, unspecified site Urinary frequency Screening for deficiency anemia Expected: 02/01/2024 (Approximate), Expires: 01/31/2025 [facility] Comment on above: Expected: 02/01/2024 (Approximate), Expi res: 01/31/2025 Start: 02-01-2024 End: 01-31-2025 Comprehensive metabolic 1998 panel - Serum or Plasma Comprehensive metabolic panel Lab Routine Type 2 diabetes mellitus without complication, without long-term current use of insulin (CMS/HCC) (HCC) Diabetic polyneuropathy associated with diabetes mellitus due to underlying condition (CMS/HCC) (HCC) Atherosclerosis of coronary artery of [place] heart without angina pectoris, unspecified vessel or lesion type Essential hypertension, benign Mixed hyperlipidemia Mixed Alzheimer's and vascular dementia (HCC) Osteoarthritis, unspecified osteoarthritis type, unspecified site Chronic pain of both feet Mild episode of recurrent major depressive disorder (HCC) Recurrent UTI Mixed stress and urge urinary incontinence Overactive bladder Urinary frequency Expected: 02/01/2024 (Approximate), Expires: 01/31/2025 [facility] Work Phone: Comment on above: Expected: 02/01/2024 (Approximate), Expi res: 01/31/2025 Start: 02-01-2024 End: 01-31-2025 Hemoglobin A1c measurement Hemoglobin A1c Lab Routine Type 2 diabetes mellitus without complication, without long-term current use of insulin (CMS/HCC) (HCC) Diabetic polyneuropathy associated with diabetes mellitus due to underlying condition (CMS/HCC) (HCC) Expected: 02/01/2024 (Approximate), Expires: 01/31/2025 [facility] Comment on above: Expected: 02/01/2024 (Approximate), Expi res: 01/31/2025 Start: 02-01-2024 End: 01-31-2025 Lipid 1996 panel - Serum or Plasma Lipid panel Lab Routine Mixed hyperlipidemia Expected: 02/01/2024 (Approximate), Expires: 01/31/2025 [facility] Comment on above: Expected: 02/01/2024 (Approximate), Expi res: 01/31/2025 Start: 02-01-2024 End: 02-01-2024 Patient encounter procedure [facility] Start: 01-30-2024 COVID-19 Vaccine (#1) COVID-19 Vaccine (#1) [facility] Comment on above: Postponed from 1940 (Patient Refus ed) Start: 01-30-2024 COVID-19 Vaccine () COVID-19 Vaccine ( season) [facility] Comment on above: Postponed from 12/01/2022 (Patient Refus ed) Start: 01-30-2024 DTaP/Tdap/Td Vaccines (1 - Tdap) DTaP/Tdap/Td Vaccines (1 - Tdap) [facility] Comment on above: Postponed from 04/03/2007 (Patient Refus ed) Start: 01-30-2024 Hepatitis B surface antibody level LDL Cholesterol [facility] Start: 01-30-2024 Hepatitis B Vaccines (1 of 3 - Risk 3-dose series) Hepatitis B Vaccines (1 of 3 - Risk 3-dose series) [facility] Comment on above: Postponed from 2000 (Patient Refus ed) Start: 01-30-2024 Pneumococcal Vaccine: 65+ Years (2 - PCV) Pneumococcal Vaccine: 65+ Years (2 - PCV) [facility] Comment on above: Postponed from 01/01/2021 (Patient Refus ed) Start: 01-30-2024 Pneumococcal Vaccine: 65+ Years (2 of 2 - PCV) Pneumococcal Vaccine: 65+ Years (2 of 2 - PCV) [facility] Comment on above: Postponed from 01/01/2021 (Patient Refus ed) Start: 01-30-2024 Screening for osteoporosis Bone Density Scan [facility] Comment on above: Postponed from 1940 (Patient Refus ed) Start: 01-30-2024 Zoster Vaccines (1 of 2) Zoster Vaccines (1 of 2) [facility] Comment on above: Postponed from 1990 (Patient Refus ed) Start: 01-25-2024 Depression Monitoring Depression Monitoring [facility] Start: 12-02-2023 COVID-19 Vaccine ( season) COVID-19 Vaccine ( season) [facility] Start: 12-02-2023 Covid-19 Vaccine ( season) Covid-19 Vaccine ( season) [facility] Start: 12-02-2023 Influenza vaccination Influenza Vaccine (#1) [facility] Start: 11-09-2023 End: 11-08-2024 Microalbumin/Creatinine panel in random Urine Microalbumin / creatinine urine ratio Lab Routine Type 2 diabetes mellitus without complication, without long-term current use of insulin (CMS/HCC) (HCC) Diabetic polyneuropathy associated with diabetes mellitus due to underlying condition (CMS/HCC) (HCC) Expected: 11/09/2023 (Approximate), Expires: 11/08/2024 [facility] Work Phone: Comment on above: Expected: 11/09/2023 (Approximate), Expi res: 11/08/2024 Start: 11-09-2023 End: 11-09-2023 Patient encounter procedure 11/09/2023 10:40 AM EDT Office Visit [facility] Medicine [address] [place], [place] [id number] Rubina Moore [employer] [address] [facility] [address] [place], [place] [id number] [facility] Start: 09-30-2023 Influenza vaccination Influenza Vaccine (#1) [facility] Comment on above: Postponed from 12/01/2022 (Patient Refus ed) Start: 09-18-2023 End: 09-18-2023 Patient encounter procedure 09/18/2023 3:45 PM EDT Office Visit [facility] Geriatrics [address] [place] [phone] Augie Barragan APRN - [employer] [address] [place], [place] [id number] Ashlee Barnhart, [employer] [address] [place] [address] [facility] Geriatrics Start: 09-15-2023 Depresssion Monitoring Depresssion Monitoring [facility] Start: 08-03-2023 End: 08-03-2023 Patient encounter procedure 08/03/2023 10:40 AM EDT Office Visit [facility] Medicine [address] [place] [address] [place] [address] Rubina Moore, [employer] [address] [facility] [place] [address] [place] [address] [facility] Start: 07-31-2023 Depresssion Monitoring Depresssion Monitoring [facility] Start: 07-31-2023 Hemoglobin A1c measurement HbA1C [facility] Start: 07-31-2023 Hemoglobin A1c/Hemoglobin.total in Blood HbA1C [facility] Start: 07-26-2023 End: 07-26-2023 Patient encounter procedure 07/26/2023 2:45 PM EDT Office Visit [facility] Geriatrics [address] [place] [address] Augie Barragan, [employer] [address] [place] [address] [facility] Geriatrics Start: 06-20-2023 End: 06-19-2024 Bacteria identified in Urine by Culture Urine culture (clean catch) Microbiology Routine Recurrent UTI Expected: 06/20/2023 (Approximate), Expires: 06/19/2024 [facility] Work Phone: Comment on above: Expected: 06/20/2023 (Approximate), Expi res: 06/19/2024 Start: 04-02-2023 Advance Directive Discussion Advance Directive Discussion [facility] Start: 04-02-2023 Medicare Advantage Annual Wellness Visit Medicare Advantage Annual Wellness Visit [facility] Start: 03-16-2023 End: 03-16-2024 Bacteria identified in Urine by Culture Urine culture Microbiology Routine Dysuria Urinary frequency Expected: 03/16/2023 (Approximate), Expires: 03/16/2024 [facility] Work Phone: Comment on above: Expected: 03/16/2023 (Approximate), Expi res: 03/16/2024 Start: 03-16-2023 End: 03-16-2023 Patient encounter procedure 03/16/2023 8:00 AM EST Office Visit [facility] Family Medicine [address] [facility] [address] [place], [place] [phone] Rubina Moore, [employer] [address] [place] [address] [facility] Start: 01-29-2023 End: 01-30-2024 Microalbumin/Creatinine panel in random Urine Microalbumin / creatinine urine ratio Lab Routine Type 2 diabetes mellitus without complication, without long-term current use of insulin ([facility]) Expected: 01/29/2023 (Approximate), Expires: 01/30/2024 [facility] Work Phone: Comment on above: Expected: 01/29/2023 (Approximate), Expi res: 01/30/2024 Start: 01-29-2023 End: 01-29-2023 Patient encounter procedure [facility] Start: 01-27-2023 Lipid panel Lipid Panel [facility] Start: 12-01-2022 Influenza vaccination [facility] Start: 11-13-2022 End: 11-14-2023 XR Hip - right Views XR hip 4+ views right Imaging Routine Injury due to fall, initial encounter Pain in joint of right hip Expected: 11/13/2022, Expires: 11/14/2023 [facility] Work Phone: Comment on above: Expected: 11/13/2022, Expires: Start: 11-08-2022 End: 11-09-2023 Bacteria identified in Urine by Culture Urine culture (clean catch) Microbiology Routine Leukocytes in urine Other microscopic hematuria Expected: 11/08/2022 (Approximate), Expires: 11/09/2023 [facility] Work Phone: Comment on above: Expected: 11/08/2022 (Approximate), Expi res: 11/09/2023 Start: 07-31-2022 End: 07-31-2022 Patient encounter procedure [facility] Start: 04-29-2022 Hemoglobin A1c measurement Diabetes: Hemoglobin A1C [facility] Start: 04-02-2022 Advance Directive Discussion Advance Directive Discussion [facility] Start: 04-02-2022 Depression Assessment Depression Assessment [facility] Start: 01-26-2022 Hepatitis B screening Urine Albumin:Creatinine Ratio [facility] Start: 01-26-2022 Urine screening for protein Diabetes: Urine Protein Screening [facility] Start: 12-01-2021 Influenza vaccination Influenza Vaccine (#1) [facility] Start: 10-21-2021 Creatinine measurement Creatinine monitoring [facility] Work Phone: Start: 10-21-2021 Potassium monitoring Potassium monitoring [facility] Work Phone: Start: 06-11-2021 COVID-19 Vaccine (1) COVID-19 Vaccine (1) [employer] Work Phone: Comment on above: Postponed from 1956 (Patient Refus ed) Postponed from 04/16 (Patient Refused) Start: 03-18-2021 Lipid panel Lipid screen [facility] Work Phone: Start: 01-01-2021 Creatinine measurement Creatinine monitoring [employer] Work Phone: Start: 01-01-2021 DTaP/Tdap/Td vaccine (1 - Tdap) DTaP/Tdap/Td vaccine (1 - Tdap) [employer] Work Phone: Comment on above: Postponed from 1959 (Patient Refus ed) Postponed from 04/03 (Patient Refused) Start: 01-01-2021 Pneumococcal Vaccine: 50+ (2 of 2 - PCV) Pneumococcal Vaccine: 50+ (2 of 2 - PCV) [facility] Start: 01-01-2021 Pneumococcal Vaccine: 65+ (2 - PCV) Pneumococcal Vaccine: 65+ (2 - PCV) [facility] Start: 01-01-2021 Pneumococcal Vaccine: 65+ (2 of 2 - PCV) Pneumococcal Vaccine: 65+ (2 of 2 - PCV) [facility] Start: 01-01-2021 Pneumococcal Vaccine: 65+ Years (2 - PCV) Pneumococcal Vaccine: 65+ Years (2 - PCV) [facility] Start: 01-01-2021 Pneumococcal Vaccine: 65+ Years (2 of 2 - PCV) Pneumococcal Vaccine: 65+ Years (2 of 2 - PCV) [facility] Start: 01-01-2021 Potassium monitoring Potassium [facility] Work Phone: Start: 01-01-2021 Screening for osteoporosis DEXA (modify frequency per FRAX score) [facility] Work Phone: Comment on above: Postponed from 1995 (Patient Refus ed) Start: 01-01-2021 Shingles Vaccine (1 of 2) Shingles Vaccine (1 of 2) [facility] Work Phone: Comment on above: Postponed from 1990 (Patient Refus ed) Start: 12-17-2020 End: 12-17-2020 Office Visit 12/17/2020 Office Visit Family Medicine Rubina Moore [employer] [address] [place], [place] [phone] [facility] Start: 12-01-2020 Influenza vaccination Flu vaccine (#1) [facility] Work Phone: Start: 10-28-2020 End: 10-28-2020 Patient encounter procedure 10/28/2020 Procedure visit Geriatric Medicine [facility] Geriatrics Start: 06-14-2020 End: 06-14-2020 Office Visit 06/14/2020 Office Visit Geriatric Medicine Yeyo Jackson MD [address] [place] [address] [phone] [facility] Start: 06-11-2020 End: 06-11-2020 Office Visit 06/11/2020 Office Visit Family Medicine Rubina Moore [employer] [address] [place], [place] [phone] [facility] Start: 06-01-2020 3 comp foot exam completed Diabetic Foot Exam [facility] Start: 06-01-2020 Diabetic foot examination Diabetic Foot Exam [facility] Start: 02-18-2020 Glaucoma screening Dilated Retinal Exam [facility] Start: 02-18-2020 Hepatitis C antibody, confirmatory test Dilated Retinal Exam [facility] Start: 01-02-2020 Annual Wellness Visit (AWV) Annual Wellness Visit (AWV) [facility] Work Phone: Start: 11-09-2016 End: 11-09-2016 Appointment Appointment [facility] Start: 11-09-2016 End: 11-09-2016 *CUUID - Urine RAHEEL Culture - Identificatn *CUUID - Urine RAHEEL Culture - Identificatn [facility] Start: 2015 RSV Vaccine (1 - 1-dose 75+ series) RSV Vaccine (1 - 1-dose 75+ series) [facility] Start: 04-03-2007 DTaP/Tdap/Td Vaccines (1 - Tdap) DTaP/Tdap/Td Vaccines (1 - Tdap) [facility] Start: 04-03-2007 Urine microalbumin profile DTaP,Tdap,Td Vaccine (1 - Tdap) [facility] Start: 2005 Bone Density Screening Bone Density Screening [facility] Start: 2005 Screening for osteoporosis Bone Density Screening [facility] Start: 2000 RSV Vaccine (1 - 1-dose 60+ series) RSV Vaccine (1 - 1-dose 60+ series) [facility] Start: 1990 Shingrix Vaccine (1 of 2) Shingrix Vaccine (1 of 2) [facility] Start: 1990 Zoster Vaccines (1 of 2) Zoster Vaccines (1 of 2) [facility] Start: 1958 Anxiety Screening Anxiety Screening [facility] Start: 1958 Depression Screening Depression Screening [facility] Start: 1956 COVID-19 Vaccine (1 of 2) COVID-19 Vaccine (1 of 2) [facility] Work Phone: Start: 1952 Depresssion Monitoring Depresssion Monitoring [facility] Start: 1950 Diabetic foot examination Diabetes: Foot Exam [facility] Start: 1950 Glaucoma screening Diabetes: Retinopathy Screening [facility] Start: 1950 Preventive dental service Diabetes: Dental Exam [facility] Start: 1940 COVID-19 Vaccine (#1) COVID-19 Vaccine (#1) [facility] Start: 1940 Hepatitis B Vaccines (1 of 3 - 3-dose series) Hepatitis B Vaccines (1 of 3 - 3-dose series) [facility] Start: 1940 Screening for osteoporosis Bone Density Scan [facility] End: 10-24-2020 Basic metabolic 2000 panel - Serum or Plasma Basic Metabolic Panel Lab Routine Daily for 3 Occurrences starting 10/22/2020 until 10/24/2020 [facility] Work Phone: Comment on above: Daily for 3 Occurrences starting 021 until 10/24/2020 End: 10-24-2020 CBC W Auto Differential panel - Blood CBC auto differential Lab Routine Daily for 3 Occurrences starting 10/22/2020 until 10/24/2020 [facility] Work Phone: Comment on above: Daily for 3 Occurrences starting 021 until 10/24/2020 End: 10-21-2020 Culture, Blood 2 Culture, Blood 2 Microbiology STAT One Time for 1 Occurrences starting 10/21/2020 until 10/21/2020 [facility] Phone: Comment on above: One Time for 1 Occurrences starting 10/01 until 10/21/2020 Culture, Blood 2 Culture, Blood 2 Microbiology STAT 10/21/2020 4:53 PM EDT [facility] Work Phone: EKG 12 Lead - Chest Pain EKG 12 Lead - Chest Pain ECG STAT 10/21/2020 1:51 PM EDT [facility] Work Phone: End: 10-21-2020 Gastrointestinal Panel, Molecular Gastrointestinal Panel, Molecular Microbiology Routine One Time for 1 Occurrences starting 10/21/2020 until 10/21/2020 [facility] Work Phone: Comment on above: One Time for 1 Occurrences starting 10/01 until 10/21/2020 End: 10-21-2020 Glucose [Mass/volume] in Serum or Plasma POCT GLUCOSE Point of Care Testing STAT One Time for 1 Occurrences starting 10/21/2020 until 10/21/2020 [facility] Work Phone: Comment on above: One Time for 1 Occurrences starting 10/01 until 10/21/2020 End: 10-21-2020 Microscopic examination of blood, culture Culture, Blood Microbiology STAT One Time for 1 Occurrences starting 10/21/2020 until 10/21/2020 [facility] Work Phone: Comment on above: One Time for 1 Occurrences starting 10/01 until 10/21/2020 Microscopic examinat ion of blood, culture Culture, Blood Microbiology STAT 10/21/2020 4:53 PM EDT [facility]: OUTSIDE PROCEDURE SCAN OUTSIDE P ROCEDURE SCAN Procedures Or[facility]: 11/13/2022 [facility] Comment on above: Ordered: 11/13/2022 Oxygen therapy [[facility] Data Set] Initiate Oxygen Therapy Protocol Respiratory Care Routine Daily until discontinued starting 10/21/2020 [employer] Work Phone: Comment on above: Daily until discontinued starting 2020 Patient Education Using an Incen tive Spirometer ED Chest Wall Contusion ED Bruise, Rib [facility] Work Phone: Patient referral [facility] Work Phone: End: 10-21-2020 Urinalysis Urinalysis Lab STAT One Time for 1 Occurrences starting 10/21/2020 until 10/21/2020 [facility] Work Phone: Comment on above: One Time for 1 Occurrences starting 10/01 until 10/21/2020 End: 11-13-2022 XR Hip - right 3 [facility] Work Phone: Comment on above: Once for 1 Occurrences starting 11/14/19 until 11/13/2022 End: 07-23-2020 XR WRIST BILATERAL 3 VW XR WRIST BILATERAL 3 VW Imaging Routine Injury due to fall, initial encounter 1 Occurrences starting 07/23/2020 until 07/23/2020 [facility] Work Phone: Comment on above: 1 Occurrences starting 07/23/2020 until 07/23/2020 XR Wrist Bilateral Minimum 3 VW XR Wrist Bilateral Minimum 3 VW Imaging Routine Injury due to fall, initial encounter 07/23/2020 2:37 PM EDT [facility] Work Phone: Immunizations Immunization Date Immunization Notes Care Provider Fa cility 01-02-2020 Influenza, High-dose , Quadv, 65 yrs +, IM (Fluzone) [facility] 01-02-2020 pneumococcal polysaccharide vaccine, 23 valent [employer] 01-02-2020 influenza virus vacc ine, unspecified formulation Rubina Moore [employer] Work Phone: [facility] 04-02-2007 Td, unspecified formulation [employer] Work Phone: 04-02-2007 tetanus and diphther ia toxoids, adsorbed, preservative free, for adult use (2 Lf of tetanus toxoid and 2 Lf of diphtheria toxoid) Rubina Moore [employer] Work Phone: [employer] Payers Date Payer Category Payer Medicaid LOCATED WITHIN [facility] MEDIC AID Member Subscriber Plan / Payer (Effective 2024-Present) Name: Cj Gillis Relation to Subscriber: Self Name: Cj Gillis Payer ID: [id number] (NAIC) Group ID: [id number] Type: Medicaid Address: [place] [id number] 2024 Medicaid [id number] 2023 Self-pay 2021 Medicare HMO A[employer] MEDICARE ember [id number] 2019 Medicare AETNA MEDICARE A ETNA MEDICARE-ADVANTAGE PPO [id number] 2019-Present [address] [place] [address] Medicare [id number] 2011 Medicare [id number] 2011 Medicare (Managed Care) AETNA [facility] [id number] 2011 Private Health Insurance [id number] Unknown [id number] Unknown [id number] Unknown [id number] Unknown [id number] Unknown [id number] Unknown [id number] Unknown [id number] Unknown 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 [employer] Work Phone: Start: 08-18-2020 History 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 [employer] Work Phone: Start: 04-27-2022 Tobacco smoking status NHIS Unknown if ever smoked [facility] Start: 09-19-2013 None [facility] Start: 09-19-2013 Spouse/ Significant Other [facility] Start: 1940 Sex Assigned At Female [facility] Start: 03-29-2022 End: 03-05-2023 History of Social function [facility] Start: 03-29-2022 End: 03-05-2023 Tobacco use panel [facility] Within the last year , have you been afraid of your partner or ex-partner? No [facility] Do you belong to any clubs or organizations such as zoroastrian groups, unions, fraternal or athletic groups, or school groups? Yes [facility] Are you now , , , , never or living with a partner? [facility] How often to you hav e a drink containing alcohol? Never [facility] How many standard dr inks containing alcohol do you have on a typical day? Patient does not drink [facility] Do you feel stress - tense, restless, nervous, or anxious, or unable to sleep at night because your mind is troubled all the time - these days [OSQ] Only a little [facility] (I/We) worried wheth er (my/our) food would run out before (I/we) got money to buy more. Never true [facility] Start: 12-15-2019 Gender identity Identifies as female gender (finding) [facility] Start: 12-15-2019 Sexual orientation Heterosexual (finding) [facility] Start: 12-11-2020 End: 01-10-2021 Exposure to SARS-CoV-2 (event) Unable to assess [facility] Start: 10-31-2021 End: 07-04-2024 Sex Female (finding) [facility] Medical Equipment Procedure Code Equipment Code Equipment Origin al Text Equipment Identifier Dates [id number] Start: 07-01-2018 End: 01-29-2023 Comment on above: Test 2 times daily, Insulin Dep? No E11.9 DM 2 Test Two times a day . Insulin Dep? No E11.9 DM 2 Sling Gynecare T vt Exact Gynecological Stress Urinary Incontinence - [id number] Start: 02-02-2016 Test two times a day & as needed for symptoms of irregular blood glucose. [id number] Start: 01-29-2023 Test 2 times rosa ly, Insulin Dep? No E11.9 DM 2 [id number] Start: 07-01-2018 Test Two times a day. Insulin Dep? No E11.9 DM 2 [id number] Start: 07-01-2018 Goals Date Patient Goal Desired [...] hearing No 08/08/2024 2:46 PM EDT Elizabet Lackey RN No [facility] 08-08-2024 Are you blind, or do you have serious difficulty seeing, even when wearing glasses No 08/08/2024 2:46 PM EDT Elizabet Lackey, INDIRA No [facility] 08-08-2024 Do you have serious difficulty walking or climbing stairs Yes 08/08/2024 2:46 PM EDT Elizabet Lackey, INDIRA Yes [facility] 08-08-2024 Do you have difficul ty dressing or bathing Yes 08/08/2024 2:46 PM EDT Elizabet Lackey, RN Yes [facility] 08-08-2024 Because of a physica l, mental, or emotional condition, do you have difficulty doing errands alone such as visiting a physician's office or shopping Yes 08/08/2024 2:46 PM EDT Elizabet Lackey, RN Yes [facility] Mental Status Date Assessment Result Facility 08-08-2024 Because of a physica l, mental, or emotional condition, do you have serious difficulty concentrating, remembering, or making decisions Yes 08/08/2024 2:46 PM EDT Elizabet Lackey, RN Yes [facility] Clinical Notes 01-10-2021 to 08-28-2024 Telephone Encounter - Norma Pleitez RN - 08/27/2024 2:10 PM EDTTelephone Encounter - Norma Pleitez RN - 08/27/2024 2:10 PM EDTHirma Moore APRN - [employer] - 02/01/2024 9:00 AM EDT Note Date & Type Note Facility 08-28-2024 Note HNO ID: [id number] Author: GUERITA ROMERO RN Service: ? Author Type: Registered Nurse Type: Nursing Progress Note Filed: 08/28/2024 15:52 Note Text: Called report to [facility]. Gave report to Cjs nurse. 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 RENAL: Alvin Olivera APRN.RN RENAL Performed by: RN RENAL Indications and Patient Condition Indications for airway management: anesthesia Preoxygenated: yes anesthesia circuit Patient position: sniffing Method: asleep Cricoid Pressure: No Manual In-Line Stabilization: No Difficult Mask: No Final Airway Details Final airway type: supraglottic airway Number of attempts at approach: 1 Final Supraglottic Airway: i-gel Size 3 Seal Adequate: yes Failed airway: no Airway not difficult SIGNATURE: Alvin Olivera APRN.CRNA PATIENT NAME: Cj Gillis DATE: August 28, 2024 TIME: 2:15 PM CSN: [id number] [facility] 08-27-2024 Telephone encounter Note Images from the original note were not included. [facility] PATIENT PREOPERATIVE INSTRUCTIONS Dr. Rey Rowan has scheduled you for your procedure at this surgery center: [facility]: [phone] -- [address] [address]. Please read below carefully for your personalized [...] office. If you are currently using a fhgv-duq-llly injectable or oral medication for diabetes or [...] Advance Directive, please fax a copy to [phone] or email to for it to be [...] your chart that day. Norma Pleitez RN [facility] Work Phone: 08-27-2024 Miscellaneous Notes Images from the original note were not included. [facility] PATIENT PREOPERATIVE INSTRUCTIONS Dr. Rey Rowan has scheduled you for your procedure at this surgery center: [facility]: [phone] -- [address] [address]. Please read below carefully for your personalized [...] office. If you are currently using a rsri-sij-lzva injectable or oral medication for diabetes or [...] Advance Directive, please fax a copy to [phone] or email to for it to be [...] that day. Norma Pleitez RN Nurse at [facility] ([facility]) requesting medication instructions for tomorrow's surgery. Pt did not see PACC-seen in ED. Can you help? documented in this encounter [facility] 08-27-2024 Telephone encounter Note Nurse at [facility] ([facility]) requesting medication instructions for tomorrow's surgery. Pt did not see PACC-seen in ED. Can you help? 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 [facility] to transport patient via cot at 3:30pm. RN is aware. Met with patient and her in room to update on plan for DC and transport time. They are in agreement with plans. SIGNATURE: Alejandra Porter RN PATIENT NAME: Cj Gillis DATE: August 08, 2024 TIME: 3:27 PM [facility] 08-07-2024 Note HNO ID: [id number] Author: ELLIOT PORTER RN Service: Care Management Author Type: Registered Nurse Type: Care Mgt Initial Assessment Filed: 08/07/2024 11:34 Note Text: CARE MANAGEMENT: ASSESSMENT AND DISCHARGE PLAN SERVICE DATE: August 07, 2024 SERVICE TIME: 11:29 AM PCP: Carlos Herron MD Primary Contact: Extended Emergency Contact Information Primary Emergency Contact: Sukumar Gillis [facility] Relation: Spouse Secondary Emergency Contact: Guerita Rivera Address: Call with medication and appointment questions. Prefer text if at all possible [place] [address] [address] [facility] Mobile Relation: Daughter Admission Status: Inpatient Insurance Provider: AETNA MEDICARE PPO Discharge Planning requested by: Per Department Practice Potential Transition Plans Penitentiary Facility/Intermediate Care Facility Advance Directives Current Advance Directive: Health Care Power of Medical Oncologist, Living Will In Chart: No Current Living Arrangements and Support Lives with: Type of Residence: Extended Care Facility Does the patient have to climb stairs at home?: No Care Facility Name: [facility] Support: Spouse/significant other, Children How do you manage to accomplish the following: Needs Assistance: Ambulation, Bathe/Shower, Dress, Meals/Meal Prep, Going to the bathroom, Medication Management Current Services/Equipment Current Post-Acute Service(s): DME Current DME Type: Walker, Wheelchair-manual Discharge Planning Patient Goal(s): Be able to go home, General wellness Henning of Choice Explained: Henning of Choice Given: Yes (per patient's , plan to return to [facility]) Level of Care Discussed: Penitentiary Facility Are you interested in bedside delivery of your medications? No Discharge Planning Participant(s): Patient, Spouse/significant other Patient/Family Comments: spouse at bedside Caregiver Assessment: Caregiver is ready, willing and able to meet the patient's needs as recommended by the inter-professional team: Yes Name of Caregiver: [facility] Transport at Discharge: Transportation Arrangements: Ambulance Needs Prior to Discharge: Needs Prior to Discharge: To Be Determined, Accepting Facility, Precertification, Discharge Transportation Post-Acute Discharge Plan: Chart reviewed and met with patient and her in room. Patient's provided patient hx and information for IA as patient has dementia. Patient is from [facility]. Needs assistance with care and is mobile with a walker but per has been using a w/c the past week since she's been weaker. DC plan is to return to [facility] and will need cot transport. Therapy evals are pending. Patient may qualify for skilled services under Medicare pending auth when she returns. is agreeable to plan for skilled if appropriate. Return referral sent to [facility]. SIGNATURE: Alejandra Porter RN PATIENT NAME: Cj Gillis DATE: August 07, 2024 TIME: 11:29 AM [facility] 08-07-2024 Note HNO ID: [id number] Author: BARNEY MARIE MD Service: Hospital Medicine Author Type: Physician Type: Progress Notes Filed: 08/07/2024 20:40 Note Text: DEPARTMENT OF HOSPITAL MEDICINE PROGRESS NOTE Hospital Medicine/Primary Attending: Barney Marie MD NIGHT AND WEEKEND COVERAGE: [place] COVERAGE: From 7am - 7pm, please call SOUND SIILVER After 7pm, please call cross cover pager #[phone] Subjective INTERVAL HPI: Patient seen and examined. [...] 20 Gauge 1 day Peripheral 08/06/24 1746 [facility] Right Antecubital 20 Gauge <1 day [...] Non-Pharmacologic VTE Prophylaxis/Anticoagulants 08/06/242044 pneumatic compression sleeve(s) (ne,oh) VTE Prophylaxis: VTE prophylaxis appropriate Disposition: To be determined Plan of care discussed with: Provider, RN, Patient SIGNATURE: Barney Marie MD PATIENT NAME: Cj Gillis DATE: August 07, 2024 TIME: 10:56 AM etx [id number] [facility] 08-07-2024 Note HNO ID: [id number] Author: SHEILA HOLDEN MD Service: Urology Author Type: Resident Type: Progress Notes Filed: 08/07/2024 07:08 Note Text: Attestation signed by Ariana Virgen MD at 08/11/2024 12:35 AM [facility] STAFF PHYSICIAN NOTE OF PERSONAL INVOLVEMENT IN CARE I have reviewed the progress note obtained and documented by the resident. I have discussed the case and management of the patient's care. Ariana Virgen MD Associate Staff Urogynecology and Reconstructive Pelvic surgery [facility] Urology UROLOGY PROGRESS NOTE PATIENT NAME: [...] Value 08/07/2024 196 07/01/2018 286 Urinalysis: Specific [place], Ur Date Value Ref Range Status 08/06/2024 [...] concerns Sheila Holden MD Urology PGY-4 Pager #[phone] 08/07/2024 6:47 AM [facility] 08-06-2024 Note HNO ID: [id number] Author: ADITI ADAM RN Service: ? Author Type: Registered Nurse Type: Nursing Progress Note Filed: 08/06/2024 20:51 Note Text: Altercare of Keith Sarah/Memory care unit [facility] 02-01-2024 History of Presen t illness Narrative Images from the original note were not included. [facility] - [address] [address] Visit type: Established Patient Reason for Visit: [...] complication, without long-term current use of insulin ([facility] Diabetes Foot Exam - Comprehensive metabolic panel - Hemoglobin A1c - Encouraged a diet low in carbohydrates and sugar. Discussed increasing Metformin to 1,000 mg twice a day. 3. Diabetic polyneuropathy associated with diabetes mellitus due to underlying condition ([facility]) ([facility]) [facility] Diabetes Foot Exam - Comprehensive metabolic panel - Hemoglobin A1c - Encouraged a diet low in carbohydrates and sugar. Discussed increasing Metformin to 1,000 mg twice a day. 4. Encounter for diabetic foot exam ([facility]) - Diabetes Foot Exam 5. Atherosclerosis of coronary artery of [place] heart without angina pectoris, unspecified vessel or [...] 01/31/2025 (Originally 1940) COVID-19 Vaccine ( - 2023- season) 2025 (Originally 12/02/2023) Depression Monitoring 07/31/2024 [...] min Stress: No Stress Concern Present (01/29/2023) [employer] - Occupational Stress Questionnaire Feeling of Stress : Only a little Social Connections: Socially Integrated (01/29/2023) Social Connection and Isolation Panel [NHANES] Frequency of Communication with Friends and Family: More than three times a week Frequency of Social Gatherings with Friends and Family: More than three times a week Attends Gnosticist Services: More than 4 times per year [...] name and . documented in this encounter [facility] 01-31-2024 Telephone encounter Note Agree, thank you [facility] 01-31-2024 Miscellaneous Notes Agree, thank you Spoke [...] 4:00. Would recommend that she stop and potato picker a sterile container. Ashwini from [facility] at Home called stating she saw faby [...] calling her next. documented in this encounter [facility] 01-31-2024 Telephone encounter Note Spoke to Guerita, she will actually be in with Faby for an appointment tomorrow morning with Rubina, will have urine tested then. [facility] 01-31-2024 Telephone encounter Note Yes, I think a urinalysis would be in line, if she cannot get it she can have her daughter collect it and bring it here if she can be here before 4:00. Would recommend that she stop and potato picker a sterile container. [facility] 01-31-2024 Telephone encounter Note Ashwini from [facility] called stating she saw faby [...] sample today, Ashwini is calling her next. [facility] 01-28-2024 Telephone encounter Note Prescription Request: Last medication check: 11/09/23 Last physical exam: 01/29/23 Next scheduled appointment: 02/01/24 Last date of refill on this medication 06/11/23 90 and 1 refill [facility] 01-28-2024 Miscellaneous Notes Prescription Request: Last medication check: 11/09/23 Last physical exam: 01/29/23 Next scheduled appointment: 02/01/24 Last date of refill on this medication 06/11/23 90 and 1 refill documented in this encounter [facility] 01-10-2024 Note Addended by: RUBINA MOORE on: 01/10/2024 12:27 PM Modules accepted: Orders [facility] 01-10-2024 Telephone encounter Note Prescription Request: Last medication check: 11/09/23 Last physical exam: 01/29/23 Next scheduled appointment: 02/01/24 Last date of refill on this medication 07/11/23 90 day 1 refill [facility] 01-10-2024 Miscellaneous Notes Prescription Request: Last medication check: 11/09/23 Last physical exam: 01/29/23 Next scheduled appointment: 02/01/24 Last date of refill on this medication 07/11/23 90 day 1 refill documented in this encounter [facility] 01-01-2024 Telephone encounter Note Prescription Request: Last medication check: 11/09/23 Last physical exam: 01/29/23 Next scheduled appointment:02/01/24 Last date of refill on this medication 07/05/23 [facility] 01-01-2024 Miscellaneous Notes Prescription Request: Last medication check: 11/09/23 Last physical exam: 01/29/23 Next scheduled appointment:02/01/24 Last date of refill on this medication 07/05/23 documented in this encounter [facility] 11-09-2023 History of Presen t illness Narrative [...] SUSPENSION 2017 2nd, CHOLECYSTECTOMY KNEE ARTHROPLASTY Bilateral 1999 TOTAL ABDOMINAL [...] min Stress: No Stress Concern Present (01/29/2023) [employer] - Occupational Stress Questionnaire Feeling of Stress : Only a little Social Connections: Socially Integrated (01/29/2023) Social Connection and Isolation Panel [NHANES] Frequency of Communication with Friends and Family: More than three times a week Frequency of Social Gatherings with Friends and Family: More than three times a week Attends Gnosticist Services: More than 4 times per year [...] Density Scan 01/30/2024 (Originally 1940) COVID-19 Vaccine ( - 2022-24 season) 2024 (Originally 12/01/2022) RSV [...] complication, without long-term current use of insulin ([facility]) - Microalbumin / creatinine urine ratio - Diabetes Foot Exam - AMB POC HEMOGLOBIN A1C - Hemoglobin A1c was 8.3% today. Will increase Metformin to 1,000 mg twice a day. Continue current dose of Januvia. 2. Diabetic polyneuropathy associated with diabetes mellitus due to underlying condition ([facility]) ([facility]) - Microalbumin / creatinine urine ratio - Diabetes Foot Exam - AMB POC HEMOGLOBIN A1C - Hemoglobin A1c was 8.3% today. Will increase Metformin to 1,000 mg twice a day. Continue current dose of Januvia. 3. Encounter for diabetic foot exam ([facility]) - Diabetes Foot Exam 4. Mixed Alzheimer's and vascular dementia ([facility]) - Stable. 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 TB (pulmonary tuberculosis) 1959 Past Surgical History: Procedure Laterality Date BLADDER [...] min Stress: No Stress Concern Present (01/29/2023) [employer] Health - Occupational Stress Questionnaire Feeling of Stress : Only a little Social Connections: Socially Integrated (01/29/2023) Social Connection and Isolation Panel [NHANES] Frequency of Communication with Friends and Family: More than three times a week Frequency of Social Gatherings with Friends and Family: More than three times a week Attends Gnosticist Services: More than 4 times per year [...] Density Scan 01/30/2024 (Originally 1940) COVID-19 Vaccine ( - 2022-24 season) 2024 (Originally 12/01/2022) RSV [...] Type 2 diabetes mellitus with hyperlipidemia (HCC) ([facility]) - Microalbumin / creatinine urine ratio - Diabetes Foot Exam - AMB POC HEMOGLOBIN A1C - Hemoglobin A1c was 8.3% today. Will increase Metformin to 1,000 mg twice a day. Continue current dose of Januvia. 2. Diabetic polyneuropathy associated with diabetes mellitus due to underlying condition ([facility]/HCC) ([facility]) - Microalbumin / creatinine urine ratio - Diabetes Foot Exam - AMB POC HEMOGLOBIN A1C - Hemoglobin A1c was 8.3% today. Will increase Metformin to 1,000 mg twice a day. Continue current dose of Januvia. 3. Encounter for diabetic foot exam ([facility]) - Diabetes Foot Exam 4. Mixed Alzheimer's and vascular dementia ([facility]) - Stable. Follow up with specialist as [...] 11/09/2023 11:38 AM documented in this encounter [facility] 10-12-2023 Telephone encounter Note Prescription Request: Last medication check: none Last physical exam: 01/29/23 Next scheduled appointment: 11/09/23 Last date of refill on this medication 04/18/23 [facility] 10-12-2023 Miscellaneous Notes Prescription Request: Last medication check: none Last physical exam: 01/29/23 Next scheduled appointment: 11/09/23 Last date of refill on this medication 04/18/23 documented in this encounter [facility] 07-26-2023 History of Presen t illness Narrative Images from the original note were not included. [facility] [address] [facility] [address] Dept: [phone] Dept Loc: [phone] Visit type: [facility] Initial Assessment Visit Date: 07/26/2023 Reason for Visit: Dementia Assessment and Plan 1. Mixed Alzheimer's and vascular dementia (HCC) - [facility] - MMSE today with a score [...] at home for as long as possible- plugger worker discussed possible options for increased supports/respite, [...] 83 y.o. female who presents to the [facility] for a comprehensive geriatric assessment. 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 Resources given today: Caregiver Relief program, home health agency list, Adult Day Program list, Elder Care Medical Oncologist list Functional Status (I: Independent, A: Assisted, [...] Spouse pays bills documented in this encounter [facility] 07-26-2023 Instructions CHONG Lofton CNP - 07/26/2023 2:45 PM EDT --Memory testing scores have declined since last visit --Recommend continuing to stay physically, socially and mentally active --Follow up regularly with family doctor to optimize blood pressure, cholesterol, blood sugar. --Follow up with our office in one year or sooner if needed documented in this encounter [facility] 07-06-2023 Telephone encounter Note Scheduled 07/26/23. [facility] 07-06-2023 Miscellaneous Notes Scheduled 07/26/23. Name of Caller: Guerita Contact Reason for Appointment: Returning call to schedule appointment. Please advise. Office Name: Senior Services Medication Refills need, if any: NA Medication Name: NA documented in this encounter [facility] 07-05-2023 Telephone encounter Note Name of Caller: Guerita Contact Reason for Appointment: Returning call to schedule appointment. Please advise. Office Name: [facility] Medication Refills need, if any: NA Medication Name: NA [facility] 07-05-2023 Telephone encounter Note Prescription Request: Last medication check: none Last physical exam: 01/29/23 Next scheduled appointment: 08/03/23 Last date of refill on this medication 07/10/22 90 day 3 refills [facility] 07-05-2023 Miscellaneous Notes Prescription Request: Last medication check: none Last physical exam: 01/29/23 Next scheduled appointment: 08/03/23 Last date of refill on this medication 07/10/22 90 day 3 refills documented in this encounter [facility] 03-27-2023 Telephone encounter Note Reviewed chart. Refill appropriate. RX sent. [facility] 03-27-2023 Miscellaneous Notes Reviewed chart. Refill appropriate. RX sent. Prescription Request: Last medication check: 03/16/23 Last physical exam: 01/29/23 Next scheduled appointment: 08/03/23 CSA on file (date): 09/27/22 Last urine drug screen: none Last date of refill on this medication 01/19/23 90 tablets no refill documented in this encounter [facility] 03-27-2023 Telephone encounter Note Prescription Request: Last medication check: 03/16/23 Last physical exam: 01/29/23 Next scheduled appointment: 08/03/23 CSA on file (date): 09/27/22 Last urine drug screen: none Last date of refill on this medication 01/19/23 90 tablets no refill [facility] 03-16-2023 History of Presen t illness Narrative [...] 03/16/2023 8:23 AM documented in this encounter [facility] 03-05-2023 Note HNO ID: [id number] Author: Lynette Santiago Service: ? Author Type: [...] Pain in limb Peripheral vascular disease, unspecified ([facility]) h/o DVT/PE PERS HX VENOUS THROMB/EMBOLISM 02/04/2003 [...] and fax results to Dr. Sprague at [phone] No current facility-administered medications for this visit. [...] 07/31/2018 Colonoscopy COLPOPEXY (more content not included)... [facility] 03-05-2023 Note HNO ID: [id number] Author: Elizabeth De Guzman, RN Service: ? [...] evenings to the top of her feet. [facility] 03-05-2023 Instructions Lynette Santiago - 03/05/2023 [...] (or decreased sensation in your feet) a motor pool clerk should always cut your toenails. Be Careful [...] Go to your health care provider or motor pool clerk to treat these conditions. documented in this encounter [facility] 03-05-2023 History of Presen t illness [...] and fax results to Dr. Sprague at [phone] No current facility-administered medications for this visit. [...] of her feet. documented in this encounter [facility] 01-29-2023 History of Presen t illness Narrative Images from the original note were not included. [facility] [address] [address] Visit type: Established Patient Reason for Visit: [...] exercise. 2. Mixed Alzheimer's and vascular dementia ([facility]) - CBC - Comprehensive metabolic panel - Progressing. Declines additional workup at this time. Discussed home safety measures. 3. Type 2 diabetes mellitus without complication, without long-term current use of insulin ([facility]/HCC) ([facility]) - CBC - Comprehensive metabolic panel - Hemoglobin A1c - Microalbumin / creatinine urine ratio - Diabetes Foot Exam - Glucose Blood (Blood Glucose Test) strip; Test two times a day & as needed for symptoms of irregular blood glucose., Normal - Stable with Metformin and Januvia. Will continue current treatment plan. 4. Encounter for diabetic foot exam ([facility]) - Diabetes Foot Exam 5. Atherosclerosis of coronary artery without angina pectoris, unspecified vessel or lesion type, unspecified whether [place] or transplanted heart - CBC - Comprehensive [...] Yes Weight trend: stable Prior visit with special education bus driver: No Current diet: in general, an unhealthy [...] min Stress: No Stress Concern Present (01/29/2023) [employer] - Occupational Stress Questionnaire Feeling of Stress : Only a little Social Connections: Socially Integrated (01/29/2023) Social Connection and Isolation Panel [NHANES] Frequency of Communication with Friends and Family: More than three times a week Frequency of Social Gatherings with Friends and Family: More than three times a week Attends Gnosticist Services: More than 4 times per year [...] Judgment: Judgment normal. Data Reviewed Labs: Imaging/Testing: Rubina CHONG Mayers CNP 01/29/2023 11:51 AM documented in this encounter [facility] 11-13-2022 History of Presen t illness Narrative [...] 11/13/2022 1:46 PM documented in this encounter [facility] 11-01-2022 Telephone encounter Note Rx sent to mail order per request. Follow up as scheduled. [facility] 11-01-2022 Miscellaneous Notes Rx sent to mail [...] want this sent. documented in this encounter [facility] 11-01-2022 Telephone encounter Note Prescription Request: Last medication check: 07/22/21 Last physical exam: 01/27/22 Next scheduled appointment: 01/29/23 Last date of refill on this medication 05/31/22 [facility] 10-31-2022 Telephone encounter Note [facility] sent [facility] request for refill on the duloxetine but all of her maintenance medications have as of late been going to the mail order. My chart message sent to family to confirm where they want this sent. [facility] 10-09-2022 Telephone encounter Note Rx sent. Follow up as scheduled. [facility] 10-09-2022 Miscellaneous Notes Rx sent. Follow up as scheduled. Prescription Request: Last medication check: 07/22/21 Last physical exam: 01/27/22 Next scheduled appointment: 01/29/23 Last date of refill on this medication 10/13/21 documented in this encounter [facility] 10-09-2022 Telephone encounter Note Prescription Request: Last medication check: 07/22/21 Last physical exam: 01/27/22 Next scheduled appointment: 01/29/23 Last date of refill on this medication 10/13/21 [facility] 07-10-2022 Telephone encounter Note Prescription Request: Last medication check: 07/22/21 Last physical exam: 01/27/22 Next scheduled appointment: 07/31/22 CSA on file (date): na Last urine drug screen: na Last date of refill on this medication 07/14/21 90 day 3 refills on both meds [facility] 07-10-2022 Miscellaneous Notes Prescription Request: Last medication check: 07/22/21 Last physical exam: 01/27/22 Next scheduled appointment: 07/31/22 CSA on file (date): na Last urine drug screen: na Last date of refill on this medication 07/14/21 90 day 3 refills on both meds documented in this encounter [facility] 06-15-2022 Note Addended by: CARLOS HERRON on: 06/15/2022 11:54 AM Modules accepted: Orders [facility] 06-15-2022 Miscellaneous Notes Addended by: CARLOS HERRON on: 06/15/2022 11:54 AM Modules accepted: Orders Orders signed Urine dropped off please sign. documented in this encounter [facility] 06-12-2022 Telephone encounter Note Orders signed [facility] 06-12-2022 Telephone encounter Note Urine dropped off please sign. [facility] 04-24-2022 Telephone encounter Note Rx sent. Follow up as scheduled. [facility] 04-24-2022 Miscellaneous Notes Rx sent. Follow up as scheduled. Prescription Request: Last medication check: 07/22/2021 Last physical exam: 01/27/2022 Next scheduled appointment: 07/31/2022 CSA on file (date): none Last urine drug screen: none Last date of refill on this medication 10/26/2021 90 days 1 refill documented in this encounter [facility] 04-24-2022 Telephone encounter Note Prescription Request: Last medication check: 07/22/2021 Last physical exam: 01/27/2022 Next scheduled appointment: 07/31/2022 CSA on file (date): none Last urine drug screen: none Last date of refill on this medication 10/26/2021 90 days 1 refill [facility] 01-10-2021 History of Presen t illness Narrative [...] 2021 11:58 AM documented in this encounter [facility] Evaluation note Diagnosis Injury due to fall, initial encounter [facility]* Diagnosis Proctocolitis- Primary Ulcerative (chronic) proctitis Leukocytosis, unspecified type documented in this encounter [facility] Work Phone: Evaluation noteNo assessment information available [facility] Work Phone: Evaluation note* Diagnosis Mild episode of recurrent major depressive disorder (HCC) [facility] [place] [facility]* Diagnosis Leukocytes in urine- Primary Other nonspecific finding on examination of urine Other microscopic hematuria [facility] [place] [facility]* Diagnosis Injury due to fall, initial encounter- Primary Pain in joint of right hip [facility] [place] [facility]* Diagnosis Unspecified fall, initial encounter documented in this encounter [facility] note* Diagnosis Unspecified fall, initial encounter- Primary [facility] [place] [facility]* Diagnosis Diabetic polyneuropathy associated with diabetes mellitus due to underlying condition ([facility])- Primary Callus of foot Corns and callosities Arthritis of foot Unspecified arthropathy, ankle and foot [facility] [place] [facility]* Diagnosis Mild episode of recurrent major depressive disorder (HCC)- Primary Mixed hyperlipidemia Dysuria Urinary frequency Essential hypertension, benign documented [facility] [place] [facility]* Diagnosis Medicare annual wellness visit, subsequent- Primary Mixed Alzheimer's and vascular dementia ([facility]) Type 2 diabetes mellitus without complication, without long-term current use of insulin ([facility]) (HCC) Encounter for diabetic foot exam ([facility]) Atherosclerosis of coronary artery without angina pectoris, unspecified vessel or lesion type, unspecified whether [place] or transplanted heart Essential hypertension, benign Osteoarthritis, unspecified osteoarthritis type, unspecified site Chronic pain of both feet 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 Mixed incontinence urge and stress (male)(female) Hematuria, unspecified type Leukocytes in urine Other nonspecific finding on examination of urine [facility] Diagnosis Chronic pain of both feet Osteoarthritis, unspecified osteoarthritis type, unspecified site [facility] [place] [facility]* Diagnosis Hematuria, unspecified type Leukocytes in urine Other nonspecific finding on examination of urine [facility]* Diagnosis Recurrent UTI- Primary Urinary tract infection, site not specified [facility] [place] [facility]* Diagnosis Mixed Alzheimer's and vascular dementia (HCC)- Primary [facility] [place] [facility]* Diagnosis Mixed Alzheimer's and vascular dementia (HCC) [facility] Diagnosis Type 2 diabetes mellitus without complication, without long-term current use of insulin ([facility]) ([facility])- Primary Diabetic polyneuropathy associated with diabetes mellitus due to underlying condition ([facility]) ([facility]) Encounter for diabetic foot exam ([facility]) Mixed Alzheimer's and vascular dementia ([facility]) Osteoarthritis, unspecified osteoarthritis type, unspecified site Chronic pain of both feet Mild episode of recurrent major depressive disorder ([facility]) Mixed stress and urge urinary incontinence Mixed incontinence urge and stress (male)(female) Overactive bladder Hypertonicity of bladder [facility] [place] [facility]* Diagnosis Type 2 diabetes mellitus with hyperlipidemia ([facility]) ([facility])- Primary Diabetic polyneuropathy associated with diabetes mellitus due to underlying condition ([facility]) ([facility]) Encounter for diabetic foot exam ([facility]) Mixed Alzheimer's and vascular dementia ([facility]) Osteoarthritis, unspecified osteoarthritis type, unspecified site Chronic pain of both feet Mild episode of recurrent major depressive disorder ([facility]) Mixed stress and urge urinary incontinence Mixed incontinence urge and stress (male)(female) Overactive bladder Hypertonicity of bladder [facility] [place] [facility]* Diagnosis Rib injury Sprain of ribs [facility] [place] [facility]* Diagnosis Acute cough- Primary Other fatigue Increased frequency of urination Urinary frequency Urinary frequency Atherosclerosis of coronary artery of [place] heart without angina pectoris, unspecified vessel or lesion type Essential hypertension, benign [facility] [place] [facility]* Diagnosis Acute cough- Primary Other fatigue Increased frequency of urination Urinary frequency Urinary frequency Medicare annual wellness visit, subsequent- Primary Type 2 diabetes mellitus without complication, without long-term current use of insulin ([facility]) ([facility]) Diabetic polyneuropathy associated with diabetes mellitus due to underlying condition ([facility]) ([facility]) Encounter for diabetic foot exam ([facility]) Atherosclerosis of coronary artery of [place] heart without angina pectoris, unspecified vessel or lesion type Essential hypertension, benign Mixed hyperlipidemia Statin declined Mixed Alzheimer's and vascular dementia ([facility]) Osteoarthritis, unspecified osteoarthritis type, unspecified site Chronic pain of both feet Mild episode of recurrent major depressive disorder ([facility]) Recurrent UTI Urinary tract infection, site not specified Mixed stress and urge urinary incontinence Mixed incontinence urge and stress (male)(female) Overactive bladder Hypertonicity of bladder Urinary frequency Screening for deficiency anemia Screening for other and unspecified deficiency anemia [facility] Acute cough- Primary Other fatigue Increased frequency of urination Urinary frequency Urinary frequency Type 2 diabetes mellitus with hyperlipidemia (HCC) (HCC) Diabetic polyneuropathy associated with diabetes mellitus due to underlying condition (CMS/HCC) (HCC) [facility] [place] [facility]* Diagnosis Urinary frequency- Primary documented in this encounter [facility] Discharge instructions* Attachments The following attachments cannot be sent through Care Everywhere. * Colitis (Divehi) documented in this [facility] Work Phone: Hospital Discharge instructions Additional Instructions Use [id number] Lidoderm patches (4%) daily as well as incentive spirometer every hour while awake to help prevent a secondary pneumonia.[facility] Work Phone: Instructions* Attachments The following attachments cannot be sent through Care Everywhere. * Preventing Falls in Older Adults (Divehi) documented in this [facility] for referral (narrative)* Consultation (Routine) - Pending Review Specialty Diagnoses / Procedures Referred By Yang dinh Referred To Contact Geriatric Medicine Diagnoses Mixed Alzheimer's and vascular dementia (HCC) Procedures [facility] OFFICE/OUTPATIENT [facility] 60 MINUTES Rubina Moore APRN - [employer] [address] [place] [address] [facility] [address] [place] [address] Referral ID Status Reason Start Date Expiration Date Visits Requested Visits Authorized [id number] Pending Review Specialty Services Required 06/22/2023 06/21/2024 1 1 [facility] for referral (narrative)* Diagnostic Procedure Only (Urgent) - Closed Specialty Diagnoses / Procedures Referred By Yang dinh Referred To Contact XR IMAGING Diagnoses Rib injury Procedures XR RIBS/CHEST 3V AP RIB/OBLS/CXR RT X-RAY RIBS, CHEST 3+ VW Shraddha Menjivar APRN.[employer] [address] [place] [address] [place] [id number] Referral ID Status Reason Start Date Expiration Date V isits Requested Visits Authorized Closed Auto-Generate d Referral 01/10/2021 02/09/2022 1 1 [facility]No reason for referral information availableWMer[facility] Work Phone: Reason for visit Narrative* Diagnostic Procedure Only (Urgent) - Closed Specialty Diagnoses / Procedures Referred By Contac t Referred To Contact XR IMAGING Diagnoses Rib injury Procedures XR RIBS/CHEST 3V AP RIB/OBLS/CXR RT X-RAY RIBS, CHEST 3+ VW Shraddha Menjivar APRN.[employer] [address] [place] [address] [place] [address] Referral ID Status Reason Start Date Expiration Date V isits Requested Visits Authorized [id number] Closed Auto-Generate d Referral 01/10/2021 02/09/2022 1 1 [facility] Reason for Referral Status Reason Specialty Diagnoses / Procedures Referre d By Contact Referred To Contact Closed Radiology Diagnoses Memory loss Procedures CT Head WO Contrast Yeyo Jackson MD [address] [address] Assessments Diagnosis Memory loss Advance Directives No Advanced Directives Records FoundLatest Code Status on File Code Status Date Activated Date Inactivated Comments Full Code 10/21/2020 8:18 PM Advance Directive Response Recorded Date/ Time Advance Directives No March 3:30pm Living Will No April 27 12:52pm Power of Medical Oncologist No April 27, 2022 12:52pm Advance Directive [...] Comments DNR Order Discussed With: Surrogate Decision [facility] er Date Activated Date Inactivated Comments 08/28/2024 12:44 PM 08/28/2024 6:53 PM Question Answer Comments Order Discussed With: Patient and Surrogate Deci kashif Maker Date Activated Date Inactivated Comments 08/06/2024 6:27 PM 08/08/2024 8:32 PM Question Answer Comments DNR Order Discussed With: Surrogate Decision [facility] er Surrogate Decision Maker Name: Sukumar Gillis Surrogate Decision Maker Surrogate Decision Maker Relationship: Spouse Date Activated Date Inactivated Comments 08/06/2024 6:24 PM 08/06/2024 6:26 PM Question Answer Comments DNR Order Discussed With: Surrogate Decision [facility] er Summary Purpose Family History No Family [...] Chief Complaint FALL Chief Complaint Admit Date [facility] LAB WORK May 12 5:00am [facility] WORK June 12, 2024 6 :15am [...] Mixed Alzheimer's and vascular dementia (HCC) Procedures UT OFFICE/OUTPATIENT NEW HIGH MDM 60 MINUTES Rubina Moore S, [employer] [address] [facility] [place] [address] [facility] [address] [place] [address] Referral ID Status Reason Start Date Expiration Date V isits Requested Visits Authorized [id number] Closed Specialty Services Required 06/22/2023 06/21/2024 1 1 Reason Onset Date Comments Appointment 07/05/2023 New Patient Reason Comments Medication Check Hypertension Hyperlipidemia Anxiety Reason Onset Date Comments Advice Only 01/31/2024 Reason Comments Medicare Annual Wellness Visit Subsequen t Health Maintenance Dexa- declines Zoste r- [...] Intravenous, EVERY 8 HOURS, First dose on Sun10/21/20 at 2100, Until Discontinued 2100 (Due) rosuvastatin [...] (38 C), Starting on Lisbeth 10/21/20 at 2016, Administer if oral route cannot be used. acetaminophen (TYLENOL) tablet 650 mg(Linked Group 1) 650 mg, Oral, EVERY 6 HOURS PRN, Pain Mild (1-3), Fever, For temp greater than 100.4 F (38 C), Starting on Lisbeth 10/21/20 at 2016, Maximum dose of acetaminophen is 4000 mg from all sources in 24 hours. ondansetron (ZOFRAN) injection 4 mg(Linked Group 2) 4 mg, Intravenous, EVERY 6 HOURS PRN, Nausea, Vomiting, Starting on Lisbeth 10/21/20 at 2016, Administer if oral route cannot be used. ondansetron (ZOFRAN-ODT) disintegrating tablet 4 mg(Linked Group 2) 4 mg, Oral, EVERY 8 HOURS PRN, Nausea, Vomiting, Starting on Lisbeth 10/21/20 at 2016 polyethylene glycol (GLYCOLAX) packet 17 g 17 g, Oral, DAILY PRN, Constipation, Starting on Lisbeth 10/21/20 at 2016, First line therapy for constipation sodium chloride flush 0.9 % injection 5-40 mL 5-40 mL, Intravenous, PRN, Line Care, After every IV line use, Starting on Lisbeth 10/21/20 at 2016, For Line Patency: Peripheral IV [...] section and content) DATE CREATED AUTHOR 10/28/2020 [email or web address] DATE CREATED AUTHOR AUTHOR'S ORGANIZ ATION 03/06/2023 [facility] DATE CREATED AUTHOR AUTHOR'S ORGANIZ ATION 02/12/2024 [email or web address] DATE CREATED AUTHOR AUTHOR'S ORGANIZ ATION 08/28/2024 [facility] DATE CREATED AUTHOR AUTHOR'S ORGANIZ ATION 09/03/2024 [facility] DATE CREATED AUTHOR AUTHOR'S ORGANIZ ATION 09/08/2024 [facility] Care Teams (unrecognized sec tion and content) Team Status: Active Member Role Status Dates Dr. Raeann Parsons MD Family Provider Active Dr. Raeann Parsons MD Primary Care Provider Active Team Status: Inactive Member Role Status Dates Dr. Raeann Parsons MD Primary Care Provider Active Dr. Chani Elkins DO Emergency Provider Active Key Account Representative Relationship Specialty Start Date End Date [place] [address] PCP - General 01/01/20 Key Account Representative Relationship Specialty Start Date End [place] [address] PCP - General 01/01/20 Key Account Representative Relationship Specialty Start Date [place] [address] PCP - General 01/01/20 Key Account Representative Relationship Specialty Start Date End Date Carlos Herron MD [address] [place] [address] PCP - General 01/01/20 Key Account Representative Relationship Specialty Start Date End Date Carlos Herron MD [address] [place] [address] PCP - General 01/01/20 Key Account Representative Relationship Specialty Start Date End Date Rubina Moore, [employer] [address] [place] [address] PCP - General Nurse Practitioner Family 11/13/22 Key Account Representative Relationship Specialty Start Date End Date Carlos Herron MD [address] [place] [address] [place] [address] PCP - General Family Medicine 11/13/22 Key Account Representative Relationship Specialty Start Date End Date Carlos Herron MD [address] [place], [place] [address] [address] PCP - General Family Medicine 11/13/22 Key Account Representative Relationship Specialty Start Date End Date Carlos Herron MD [address] [place], [place] [address] [address] PCP - General Family Medicine 11/13/22 Key Account Representative Relationship Specialty Start Date End Date Carlos Herron [address] [place], [place] [address] [address] PCP - General Family Medicine 08/18/20 Neelam (Pharmacist)Kandice [address] [place] [address] Pharmacist Pharmacy 07/04/18 Christel Cerda [facility] [address] [place] [address] Pharmacist Pharmacy 08/15/18 Key Account Representative Relationship Specialty Start Date End Date Carlos Herron MD [address] [place], [place] [address] [address] PCP - General Family Medicine 11/13/22 Key Account Representative Relationship Specialty Start Date End Date Carlos Herron MD [address] [place], [place] [address] [address] PCP - General Family Medicine 11/13/22 Key Account Representative Relationship Specialty Start Date End Date Carlos Herron MD [address] [facility] [place] [address] PCP - General Family Medicine 11/13/22 Key Account Representative Relationship Specialty Start Date End Date Carlos Herron MD [address] [facility] [place] [address] PCP - General Family Medicine 11/13/22 Key Account Representative Relationship Specialty Start Date End Date Carlos Herron MD [address] [facility] [place] [address] PCP - General Family Medicine 11/13/22 Key Account Representative Relationship Specialty Start Date End Date Carlos Herron MD [address] [facility] [place] [address] PCP - General Family Medicine 11/13/22 Key Account Representative Relationship Specialty Start Date End Date Carlos Herron MD [address] [facility] [place] [address] PCP - General Family Medicine 11/13/22 Key Account Representative Relationship Specialty Start Date End Date Carlos Herron MD [address] [facility] [place] [address] PCP - General Family Medicine 11/13/22 Key Account Representative Relationship Specialty Start Date End Date Carlos Herron MD [address] [facility] [place] [address] PCP - General Family Medicine 11/13/22 Key Account Representative Relationship Specialty Start Date End Date Carlos Herron MD [facility] [place] [address] PCP - General Family Medicine 11/13/22 Key Account Representative Relationship Specialty Start Date End Date Carlos Herron MD [facility] [place] [address] PCP - General Family Medicine 11/13/22 Key Account Representative Relationship Specialty Start Date End Date Carlos Herron [address] [place] [address] [place] [address] PCP - General Family Medicine 08/18/20 Kandice Richter [address] [place] [address] Pharmacist Pharmacy 07/04/18 Christel Cerda [facility] [address] [place] [address] Pharmacist Pharmacy 08/15/18 Key Account Representative Relationship Specialty Start Date End Date Carlos Herron MD [facility] [place] [address] PCP - General Family Medicine 11/13/22 Key Account Representative Relationship Specialty Start Date End Date Carlos Herron MD [facility] [place] [address] PCP - General Family Medicine 11/13/22 Key Account Representative Relationship Specialty Start Date End Date Carlos Herron MD [facility] [place] [address] PCP - General Family Medicine 11/13/22 Key Account Representative Relationship Specialty Start Date End Date Carlos Herron MD [address] [place] [address] PCP - General Family Medicine 11/13/22 Key Account Representative Relationship Specialty Start Date End Date Carlos Herron MD [address] [place] [address] PCP - General Family Medicine 11/13/22 Key Account Representative Relationship Specialty Start Date End Date Carlos Herron MD [address] [place] [address] PCP - General Family Medicine 11/13/22 Key Account Representative Relationship Specialty Start Date End Date Carlos Herron MD [address] [place] [address] PCP - General 01/01/20 Key Account Representative Relationship Specialty Start Date End Date Carlos Herron MD [address] [place] [address] PCP - General 01/01/20 Team Status: Active [...] June 12, 2024 End: June 12, 2024 Key Account Representative Relationship Specialty Start Date End Date Carlos Herron [address] [facility] [place] [address] PCP - General Family Medicine 08/18/20 Nithya Richtere [address] [place] [address] Pharmacist Pharmacy 07/04/18 [facility] [address] [place] [address] Pharmacist Pharmacy 08/15/18 Key Account Representative Relationship Specialty Start Date End Date Carlos Herron [address] [facility] [place] [address] PCP - General Family Medicine 08/18/20 Ranulfo Richtersie [address] [place] [address] Pharmacist Pharmacy 07/04/18 [facility] [address] [place] [address] Pharmacist Pharmacy 08/15/18 Goals (unrecognized section and [...] or prosecute any alcohol or drug abuse patient.[facility] the event this information is protected by the Federal Confidentiality of Alcohol and Drug Abuse Patient Records regulations: The Federal rules restrict any use of the information to criminally investigate or prosecute any alcohol or drug abuse patient.[facility] Hospital[facility] the event this information is protected by the Federal Confidentiality of Alcohol and Drug Abuse Patient Records regulations: The Federal rules restrict any use of the information to criminally investigate or prosecute any alcohol or drug abuse patient.[facility] Hospital[facility] the event this information is protected by the Federal Confidentiality of Alcohol and Drug Abuse Patient Records regulations: The Federal rules restrict any use of the information to criminally investigate or prosecute any alcohol or drug abuse patient.[facility] FOR RECORDS PERTAINING TO PATIENTS WHO [...] BE BASED ON THE PRIMARY CLINICAL RECORDS. [facility] [employer] [facility]. provides no warranty or guarantee of the accuracy or completeness of information in this document.
[2024-09-11 09:22] LABS: Anion Gap 14 (5-15); BUN 34 mg/dL (4-19); BUN/Creat Ratio 42.9 RATIO (10-20); Calcium,Total 9.6 mg/dL (7.6-11.0); Carbon Dioxide 22.1 mmol/L (21.0-32.0); Chloride 101 mmol/L (98-108); EST Glomerular Filtration Rate 73 (>60); Glucose 131 mg/dL (70-99); Sodium Level 137 mmol/L (133-145); Uric Acid 9.2 mg/dL (2.6-6.0)
[2024-09-11 09:25] LABS: Erythrocyte Sedimentation Rate 38 mm/hr (0-30)
== END ==
LOC: OLS.ACW400 05:00
PROVIDERS: PCP Family Medicine; Visit Provider Family Medicine
DX: G30.8 Other Alzheimer's disease (principal); E11.40 Type 2 diabetes mellitus with diabetic neuropathy, unspecified; M79.671 Pain in right foot
CPT/HCPCS: 36415; 80048; 84550; 85652

== ENCOUNTER → 2024-10-08 15:30 | Outpatient (REF) | payer MEDICARE, SELFPAY ==
[2024-10-09 09:33] LABS: Color, Urine Yellow (Yellow); Glucose, Dipstick Normal (Normal); Ketone-Dipstick Negative (Negative); Leukocyte Esterase-Dipstick Negative /ul (Negative); Nitrite-Dipstick Negative (Negative); Occult Blood-Urine Negative /ul (Negative); Protein-Dipstick 15 mg/dl (Negative); Specific Gravity, Urine 1.025 (1.002-1.030); Urine Bilirubin Dipstick Negative (Negative)
== END ==
LOC: OLS.ACW400 15:30
PROVIDERS: PCP Family Medicine; Visit Provider Family Medicine
DX: G30.8 Other Alzheimer's disease (principal); R53.1 Weakness; F03.918 Unspecified dementia, unspecified severity, with other behavioral disturbance; R26.81 Unsteadiness on feet; E11.40 Type 2 diabetes mellitus with diabetic neuropathy, unspecified
CPT/HCPCS: 81002; 87086; 87088

== ENCOUNTER → 2024-12-24 | Outpatient (REF) | payer MEDICARE, SELFPAY ==
--- OUTSIDE RECORDS SUMMARY | 2024-12-24 04:09 | XMS RPT_ITS | CCD ---
Author Organization [facility] Care Team Providers Care Ammonia Print Operator Name Role Phone Kindra ORACLE E BUSINESS DEVELOPER, Kenyetta Jett Unavailable Carlos Herron Primary Care Provider Germaine NAPIER, Carlos Cali Primary Care Provider Germaine NAPIER, Carlos Cali Primary Care Provider Germaine NAPIER, Carlos Cali Primary Care Provider Germaine NAPIER, Carlos Cali Primary Care Provider Oscar SCHWARZ - Rubina PALACIOS Primary Care Provider Germaine NAPIER, Carlos Cali Primary Care Provider Neelam (Pharmacist)Kandice Unavailable [phone] [facility] ClareChristel Unavailable Carlos Herron Primary Care Provider LYNETTE SANTIAGO Attending Unavailable CARLOS HERRON Primary Care Unavailtracey e Kandice Richter Unavailable Carlos Herron Primary Care Provider Germaine NAPIER, Dr. Gonzalez Primary Care Provider [phone] Demario Abraham Attending Provider UnavailDemario Calzada Referring Provider UnavailCHAPARRO Hu Admitting Unavailable CARLOS HERRON Primary Care UnavailBARNEY oGnzales Attending Unavailable RUBINA MOORE Attending Unavailable CARLOS HERRON Primary Care Unavailable CARLOS HERRON Primary Care Unavailable CARLOS HERRON Primary Care Unavailable RUBINA MOORE Attending Unavailable GERMAINE, CARLOS Primary Care Unavailable DAYTON MORIN Attending Unavailable Demario Abraham Referring Unavailable Demario Abraham Attending Unavailable Germaine, Carlos Primary Care Unavailable Demario Abraham Attending Unavailable Germaine, Carlos Primary Care Unavailable Germaine, Carlos Primary Care Unavailable Demario Abraham Attending Unavailable Germaine, Carlos Primary Care Unavailable Demario Abraham Attending Unavailable Germaine, Carlos Primary Care Unavailable Herb Holm Attending Unavailable Germaine, Carlos Primary Care Unavailable Demario Abraham Attending Unavailable Germaine, Carlos Primary Care Unavailable Demario Abraham Attending Unavailable Demario Abraham Referring Unavailable Germaine, Carlos Primary Care Unavailable Demario Abraham Attending Unavailable Demario Abraham Attending Unavailable Demario Abraham Referring Unavailable Germaine, Carlos Primary Care Unavailable Germaine, Carlos Viraj Primary Care Provider [phone] PROVIDER, UNKNOWN Referring Unavailable GERMAINE, CARLOS VIRAJ Primary Care Unavailabl e GERMAINE, CARLOS VIRAJ Primary Care Unavailabl e PROVIDER, UNKNOWN Referring Unavailable GERMAINE, CARLOS VIRAJ Primary Care Unavailabl e PROVIDER, UNKNOWN Admitting Unavailable PROVIDER, UNKNOWN Attending Unavailable GERMAINE, CARLOS VIRAJ Primary Care Unavailabl e LYNETTE FULLER Attending Unavailable Allergies Allergy Classification Reported Allergen(s) [...] (2 sources) rofecoxib Drug Allergy 08-04-19 04 [facility] (3 sources) acetaminophen / HYDROcodone drug allergy 11-10-19 [facility] (3 sources) acetaminophen / oxyCODONE drug allergy 11-10-19 [facility] (20 sources) Acetaminophen / HYDROcodone Drug Allergy 11-10-19 [facility] Work Phone: (9 sources) atorvastatin Drug Allergy 04-28-19 10 Other: See Comments [facility] Work Phone: (15 sources) celecoxib; Translations: [CELECOXIB] Drug Allergy 08-04-19 04 Nausea [facility] Work Phone: (6 sources) Hmg-Coa Reductase Inhibitors (Statins) Propensity to adverse reactions to drug 09-06-19 17 Other (See Comments) [facility] Work Phone: (20 sources) Morphine; Translations: [MORPHINE] Drug Allergy 08-04-19 04 Other (See Comments), Other, GI Upset [facility] Work Phone: (15 sources) rofecoxib; Translations: [ROFECOXIB] Drug Allergy 08-04-19 04 Nausea [facility] Work Phone: (4 sources) Other Propensity to adverse reactions 08-04-19 04 Other (See Comments) [facility] Work Phone: (3 sources) Opioids - Morphine Analogues Propensity to adverse reactions 04-27-19 23 Other, Nausea [facility] (20 sources) celecoxib Drug Allergy 08-04-19 04 [facility] (20 sources) HMG-CoA reductase inhibitor Drug Intolerance 04-28-19 10 Other [facility] (20 sources) rofecoxib Drug Allergy 08-04-19 04 [facility] (9 sources) Pethidine analog; Translations: [OPIOIDS-MEPERIDI NE AND RELATED] Propensity to adverse reactions 08-04-19 04 GI Upset [facility] Work Phone: (3 sources) atorvastatin; Translations: [ATORVASTATIN CALCIUM] Drug Allergy 04-28-[address] [facility] Repository (1 source) celecoxib Drug Allergy 01-01-20 24 [facility] Repository (1 source) rofecoxib Drug Allergy 01-01-20 [facility] Rep[facility] (1 source) Opioids - Morphine Analogues Drug allergy (disorder) 01-01-20 [facility] Rep[facility] (1 source) Qdggayr-Gey-Cmn Reductase Inhibitor Drug allergy (disorder) 01-01-20 [facility] Repository NEGATED: Highlighted row has been ruled out!Unclassified (1 source) Other Propensity to adverse reactions 08-04-19 04 Other (See Comments) [facility] Medications Current Medications Medication Drug Class(es) Dates [...] / oxyCODONE hydrochloride 5 mg oral tablet (2 sources) Opioid Agonist Start: 10-16-19 take 1 tablet by mouth every six hours as needed for pain Oxycodone-Acetamin ophen (Percocet) 5-325 mg tablet Active 1 {tbl} PO EVERY 6 HOURS as needed for pain 12 October 16, 2023 amLODIPine 5 mg oral tablet (10 sources) Dihydropyridine Calcium Channel Elizabeth Start: 09-06-19 [...] at 0900 Start: 11-09-2016 ASPIR-81 81 MG [facility] ASPIRIN [id number] Kenyetta Arguelles ORACLE E BUSINESS DEVELOPER Start: 11-09-2016 ASPIR-81 81 MG [facility] ASPIRIN [id number] Kenyetta Arguelles ORACLE E BUSINESS DEVELOPER Start: 01-31-2016 take 1 tablet by peter [...] 1 tablet by peter th once daily BETAXOLOL HCL 10 MG TABS One tablet by mouth daily BETAXOLOL HCL [id number] Kenyetta Jett [place] ORACLE E BUSINESS DEVELOPER take 5 mg by mouth once daily [...] (CLARITIN). cholecalciferol 0.125 mg disintegrating oral tablet (19 sources) Vitamin D take 125 ug by [...] tablet 0 03/16/2023 03/23/2023 Active COMPOUNDED PRESCRIPTION (6 sources) Start: 019 COMPOUNDED PRESCRIPTION If patient presents with allergic reaction, please check tryptase level and fax results to Dr. Sprague at [phone] 1 Each 07/16/2018 Active Comment on above: If patient presents with allergic reaction, please check tryptase level and fax results to Dr. Sprague at [phone] DULoxetine 60 mg delayed release oral capsule [...] complication, without long-term current use of insulin ([facility]) , Essential hypertension, benign Take 1 tablet [...] S upply Disposable ([facility] INCONTINENCE PADS) [facility] Indications: Urinary incontinence, unspecified type 100 each by Does not apply route daily as needed (incontinence) 100 each 5 05/24/2020 Active isopropyl alcohol 0.7 ml/ml medicated pad (6 sources) Start: 07-01-2018 alcohol swabs (ALCOHOL PADS) padm Indications: Type 2 diabetes mellitus without complication, without long-term current use of insulin (HCC) Test Two times a day. Insulin Dep? No E11.9 DM 2 200 Each 4 07/01/2018 Active Comment on above: Test Two times a day . Insulin Dep? No E11.9 DM 2 linagliptin 5 mg oral tablet (5 sources) Dipeptidyl Peptidase 4 Inhibitor Start: 07-28-2024 take 1 tablet by mouth once daily TRADJENTA 5 mg tab Take 5 mg by mouth once daily. 07/28/2024 Active Start: 10-22-2020 linagliptin (T RADJENTA) tablet 5 mg lisinopril 5 mg oral tablet (4 sources) Angiotensin Converting Enzyme Inhibitor Start: 07-08-2024 take 1 tablet by mouth once daily lisinopril (ZESTRIL) 5 mg tablet Take 5 mg by mouth once daily. 07/08/2024 Active loperamide hydrochloride 2 mg oral tablet (7 sources) Opioid Agonist loperamide HCl (IMODIUM) 2 [...] tablet (20 sources) Start: 01-26-2020 End: 01-01-2024 loratadine (Claritin) 10 MG tablet TAKE 1 TABLET DAILY 90 tablet 1 01/01/2024 Active Comment on above: Take 10 mg by mouth once daily. LORazepam 0.5 mg oral tablet (4 sources) Benzodiazepine Start: 07-23-2024 take 0.5 mg [...] Start: 02-04-2024 take 2 tablets by mo [facility] twice daily metFORMIN XR (Glucophage-XR) 500 MG 24 hr tablet Indications: Type 2 diabetes mellitus with hyperlipidemia (HCC) (HCC) , Diabetic polyneuropathy associated with diabetes mellitus due to underlying condition (HCC) Take 2 tablets (1,000 mg) by [...] Discontinued Start: 11-09-2023 take 2 tablets by [facility] twice daily metFORMIN XR (Glucophage-XR) 500 [...] One tablet by mouth daily METFORMIN HCL [id number] Kenyetta Arguelles ORACLE E BUSINESS DEVELOPER Start: 09-19-2013 take 1 tablet by peter th three times daily at mealtime Metformin 500 MG tablet Active 500 mg PO 3 TIMES DAILY WITH MEALS September 19, 2013 12:00am metFORMIN (GLUCO PHAGE-XR) 500 MG extended release tablet Take 500 mg by mouth 2 times daily TWICE DAILY 0 Active Comment on above: Take 3 tablets by mo ut daily with breakfast. May increase to 2000mg [...] tablet Indications: Atherosclerosis of coronary artery of [place] heart without angina pectoris, unspecified vessel or lesion type , Essential hypertension, benign Take 0.5 tablets (12.5 mg) by mouth daily. Do not crush or chew. 02/01/2024 Active Start: 06-11-2023 End: 01-28-2024 metoprolol succinate XL (Top rol-XL) 25 MG 24 hr tablet Indications: Atherosclerosis of coronary artery of [place] heart without angina pectoris, unspecified vessel or lesion type , Essential hypertension, benign TAKE 1 TABLET DAILY (DO NOT CRUSH OR CHEW) 90 tablet 3 01/28/2024 Active mirtazapine 7.5 mg oral tablet (4 sources) Start: 07-11-2024 take 1 tablet by mouth once daily at bedtime Mirtazapine (REMERON) 7.5 mg tablet Take 7.5 mg by mouth daily at bedtime. 07/11/2024 Active 24 hr niacin 500 mg extended release oral tablet (3 sources) Nicotinic Acid Start: 09-19-2013 Niacin 500 [...] Active ondansetron 4 mg disintegrating oral tablet (2 sources) Serotonin-3 Receptor Antagonist Start: 10-16-2023 take 1 [...] times daily as needed. polyethylene glycol [id number] mg powder for oral solution (1 source) Osmotic Laxative Start: 1 17 g, Oral, DAILY PRN, Constipation, Starting on [facility] 10/21/20 at 2017 First line therapy for [...] once daily. predniSONE 20 mg oral tablet (15 sources) Start: 4 take 1 tablet by [...] tablet Indications: Atherosclerosis of coronary artery of [place] heart without angina pectoris, unspecified vessel or [...] once daily. sertraline 50 mg oral tablet (4 sources) Serotonin Reuptake Inhibitor Start: 07-26-19 take 1 tablet by mouth once daily sertraline (ZOLOFT) 50 mg tablet Take 50 mg by mouth once daily. 07/25/2024 Active SITagliptin 100 mg oral tablet (20 sources) Dipeptidyl Peptidase 4 Inhibitor Start: 09-06-19 End: 10-12-19 Januvia 100 MG tablet TAKE 1 TABLET DAILY 90 tablet 3 10/12/2023 Active Comment on above: Take 1 tablet by peter once daily. 3 ml sodium chloride 9 mg/ml injection (4 sources) Start: 10-22-19 take 1 dose intravenously twice daily 5-40 mL, Intravenous, EVERY 12 HOURS SCHEDULED (2 times per day), First dose on Lisbeth 10/21/20 at 2100 For Line Patency: Peripheral IV = 5 mL; Midline or Central Line = 10 mL/lumen. &nb sp;If following IV push medication, administer flush at same rate as the IV push. Flush volume is determined by type of infusion therapy being given. For non-viscous solutions use: Peripher al IV = 5 mL Midline or Central Line = 10 mL/lumen &nbs p;For viscous solutions (i.e. blood components, parenteral nutrition, contrast media, or after obtaining blood sample) use: Peripher al IV = 10 mL Midline or Central [...] piggyback infusions, Starting on Lisbeth 10/21/20 at 2016 Administer at the same rate as the piggyback being infused. tamsulosin hydrochloride 0.4 mg oral capsule (4 sources) alpha-Adrenergic Elizabeth Start: 08-09-2024 take 1 [...] Start: 11-09-2016 take 2 tablets by mo [facility] twice daily TRAMADOL HCL 50 MG TABS Two tablets by mouth twice daily TRAMADOL HCL [id number] Kenyetta Arguelles ORACLE E BUSINESS DEVELOPER Start: 09-19-2013 [facility] needed for pain [...] 1 ml diphenhydrAMINE hydrochloride 50 mg/ml cartridge (6 sources) Histamine-1 Receptor Antagonist Start: 10-21-2020 End: [...] as needed. lidocaine 0.05 mg/mg medicated patch (7 sources) Antiarrhythmic, Amide Local Anesthetic Start: End: [...] lower quadrant abdominal pain] Onset: 08-06-2024 Episodic Anxiety disorders (1 source) Generalized anxiety disorder; Translations: [Generalized anxiety disorder] Onset: 09-17-2024 Chronic Calculus of urinary tract (15 sources) Kidney stone; Translations: [Calculus of kidney] Onset: 08-06-2024 08-06-2024 Episodic Cardiac dysrhythmias (6 sources) Irregular heart beat; Translations: [Cardiac arrhythmia, unspecified] Onset: 04-28-2009 04-28-2009 Chronic Complications of surgical procedures or medical care (6 sources) Prolapse of vaginal vault after hysterectomy; Translations: [Prolapse of vaginal vault after hysterectomy] Onset: 02-22-2015 02-22-2015 Chronic Conditions associated with dizziness or vertigo (3 sources) Benign paroxysmal positional vertigo; Translations: [Benign paroxysmal vertigo, unspecified ear] 06-14-2014 Episodic Coronary atherosclerosis and other heart disease (20 sources) Coronary atherosclerosis; Translations: [Atherosclerotic heart disease of [place] coronary artery without angina pectoris] Onset: 08-15-2013 [...] 01-02-2020 Chronic Diseases of white blood cells (6 sources) Leukocytosis; Translations: [Elevated white blood cell count, unspecified] Onset: 08-06-2024 Resolved: 08-08-2024 Chronic Disorders of lipid metabolism (20 sources) Mixed hyperlipidemia; Translations: [Mixed hyperlipidemia] Onset: 04-28-2009 02-07-2023 Chronic E Codes: Fall (13 sources) Falling injury; Translations: [Unspecified fall, initial encounter] Onset: 09-17-2024 Episodic Essential hypertension (20 sources) Hypertensive disorder; Translations: [Essential (primary) hypertension] Onset: 08-04-2003 09-19-2013 Chronic Genitourinary congenital anomalies (1 source) Congenital occlusion of ureteropelvic junction; Translations: [Hydronephrosis with ureteropelvic junction (UPJ) obstruction] Onset: 08-06-2024 Chronic Genitourinary symptoms and ill-defined conditions (20 sources) Mixed urinary incontinence; Translations: [Mixed incontinence] Onset: 02-22-2015 11-09-2016 Chronic Malaise and fatigue (20 sources) Fatigue; Translations: [Other fatigue] Onset: 12-15-2021 01-15-2022 Episodic Mood disorders (20 sources) Recurrent major depressive episodes, mild ; Translations: [Major depressive disorder, recurrent, mild] Onset: 01-02-2020 01-02-2020 Chronic Noninfectious gastroenteritis (2 sources) Proctocolitis; Translations: [Noninfective gastroenteritis and colitis, unspecified] Onset: 10-21-2020 Episodic Nonspecific chest pain (3 sources) Chest wall pain; Translations: [Other chest pain] 04-27-2022 Episodic Open wounds of head; neck; and trunk (2 sources) Laceration of right eyebrow; Translations: [Laceration without foreign body of right eyelid and periocular area, initial encounter] 01-09-2024 Episodic Osteoarthritis (20 sources) Osteoarthritis; Translations: [Unspecified osteoarthritis, unspecified site] Onset: 02-12-2007 01-02-2020 Chronic Other connective tissue disease (3 sources) Pain in lower limb; Translations: [Pain in right leg] 09-19-2013 Episodic Other diseases of bladder and urethra (20 sources) Overactive bladder; Translations: [Overactive bladder] Onset: 01-22-2017 01-02-2020 Chronic Other fractures (2 sources) Fracture of multiple ribs ; Translations: [Multiple fractures of ribs, unspecified side, initial encounter for closed fracture] 10-24-2023 Episodic Other injuries and conditions due to external causes (1 source) Injury of ribs; Translations: [Unspecified injury of thorax, initial encounter] 10-11-2021 Episodic Other injuries and conditions due to external causes (2 sources) Closed injury of head; Translations: [Unspecified injury of head, initial encounter] 01-09-2024 Episodic Other injuries and conditions due to external causes (4 sources) Abrasion and/or friction burn of multiple sites; Translations: [Unspecified multiple injuries, initial encounter] Onset: 08-08-2024 08-08-2024 Episodic Other injuries and conditions due to external causes (2 sources) Fall; Translations: [Encounter for examination and observation following other accident] 09-27-2024 Episodic Other injuries and conditions due to external causes (2 sources) Encounter for examination and observation following other accident; Translations: [Encounter for examination and observation following other accident] Onset: 09-27-2024 Episodic Other injuries and conditions due to external causes (1 source) Unspecified injury of head, subsequent encounter; Translations: [Unspecified injury of head, subsequent encounter] Onset: 09-17-2024 Episodic Other nervous system disorders (2 sources) Other chronic pain; Translations: [Other chronic pain] Onset: 01-15-2022 Chronic Other nervous system disorders (2 sources) Unsteadiness on feet; Translations: [Unsteadiness on feet] Onset: 09-03-2024 Episodic Other non-traumatic joint disorders (1 source) Pain in right hip joint; Translations: [Pain in right hip] 11-13-2022 Episodic Other nutritional; endocrine; and metabolic disorders (1 source) Hypomagnesemia; Translations: [Hypomagnesemia] Onset: 08-08-2024 Chronic Other skin disorders (1 source) Foot callus; Translations: [Corns and callosities] 03-05-2023 Episodic Prolapse of female genital organs (20 sources) Prolapse of female genital organs; Translations: [Vaginal wall prolapse] Onset: 02-22-2015 11-09-2016 Chronic Residual codes; unclassified (1 source) Amnesia; Translations: [Memory loss] Episodic Residual codes; unclassified (3 sources) Transient altered mental status; Translations: [Disorientation, unspecified] 09-19-2013 Episodic Superficial injury; contusion (3 sources) Contusion of rib; Translations: [Contusion of left front wall of thorax, initial encounter] 04-27-2022 Episodic Unclassified (1 source) Dementia in other diseases classified elsewhere, severe, without behavioral disturbance, psychotic disturbance, mood disturbance, and anxiety (HCC); Translations: [Dementia in other diseases classified elsewhere, severe, without behavioral disturbance, psychotic disturbance, mood disturbance, and anxiety (HCC)] Onset: 09-27-2024 Unclassified (2 sources) Labs Only; Translations: [Labs Only] Onset: 01-16-2024 Unclassified (1 source) Unspecified dementia, unspecified severity, with other behavioral disturbance; Translations: [Unspecified dementia, unspecified severity, with other behavioral disturbance] Onset: 09-03-2024 Unclassified (1 source) Vascular dementia, moderate, without behavioral disturbance, psychotic disturbance, mood disturbance, and anxiety; Translations: [Vascular dementia, moderate, without behavioral disturbance, psychotic disturbance, mood disturbance, and anxiety] Onset: 04-04-2024 Past or Other Problems Problem Classification Problem Date Documented Da te Episodic/Chronic Bacterial infection; unspecified site (11 sources) Rheumatic fever; Translations: [Rheumatic fever without heart involvement] Onset: 04-28-2009 Resolved: 01-02-2020 01-02-2020 Episodic Esophageal disorders (6 sources) Esophagitis; Translations: [Esophagitis, unspecified] Onset: 04-11-2012 04-11-2012 Episodic Fluid and electrolyte disorders (4 sources) Lactic acidosis; Translations: [Lactic acidosis] Onset: 08-06-2024 Resolved: 08-08-2024 08-08-2024 Episodic Gastritis and duodenitis (6 sources) Acute gastritis; Translations: [Acute gastritis without bleeding] Onset: 04-11-2012 04-11-2012 Episodic Genitourinary symptoms and ill-defined conditions (20 sources) Increased frequency of urination; Translations: [Frequency of micturition] Onset: 12-15-2021 01-15-2022 Episodic Mood disorders (20 sources) Mood disorders Onset: 03-16-2023 Resolved: 07-26-2023 03-16-2023 Other connective tissue disease (20 sources) Pain in right foot; Translations: [Bilateral chronic pain of feet] Onset: 01-02-2020 01-02-2020 Episodic Other connective tissue disease (2 sources) Pain in left foot; Translations: [Pain in left foot] Onset: 01-15-2022 Episodic Other injuries and conditions due to external causes (1 source) Unspecified injury of head, initial encounter; Translations: [Unspecified injury of head, initial encounter] Onset: 01-25-2024 Episodic Other lower respiratory disease (20 sources) Cough; Translations: [Acute cough] Onset: 03-29-2022 Resolved: 01-29-2023 03-29-2022 Episodic Other lower respiratory disease (10 sources) Cough; Translations: [Acute cough] Onset: 03-29-2022 Resolved: 01-29-2023 01-29-2023 Episodic Other nutritional; endocrine; and metabolic disorders (4 sources) Hypomagnesemia; Translations: [Hypomagnesemia] Onset: 08-06-2024 Resolved: 08-08-2024 08-08-2024 Chronic Other screening for suspected conditions (not mental disorders or infectious disease) (7 sources) Patient encounter status; Translations: [Encounter for screening for diseases of the blood and blood-forming organs and certain disorders involving the immune mechanism] Onset: 02-01-2024 Resolved: 08-08-2024 02-01-2024 Episodic Phlebitis; thrombophlebitis and thromboembolism (20 sources) History of thromboembolism of vein; Translations: [Personal history of other venous thrombosis and embolism] Onset: 02-04-2003 01-02-2020 Episodic Residual codes; unclassified (6 sources) Family history of pulmonary embolism; Translations: [Family history of ischemic heart disease and other diseases of the circulatory system] Onset: 06-10-2010 06-10-2010 Episodic Residual codes; unclassified (6 sources) History of palpitations; Translations: [Personal history of other specified conditions] Onset: 08-15-2013 08-15-2013 Episodic Residual codes; unclassified (6 sources) Statin declined; Translations: [Procedure and treatment not carried out because of patient's decision for unspecified reasons] Onset: 02-01-2024 02-01-2024 Episodic Residual codes; unclassified (2 sources) Procedure and treatment not carried out because of patient's decision for unspecified reasons; Translations: [Procedure and treatment not carried out because of patient's decision for unspecified reasons] Onset: 02-01-2024 Episodic Residual codes; unclassified (1 source) Altered mental status, unspecified; Translations: [Altered mental status, unspecified] Onset: 04-04-2024 Episodic Septicemia (except in labor) (5 sources) Sepsis; Translations: [Sepsis, unspecified organism] Onset: 08-06-2024 Resolved: 08-08-2024 08-08-2024 Episodic Tuberculosis (11 sources) Tuberculosis; Translations: [Respiratory tuberculosis unspecified] Onset: 04-28-2009 Resolved: 01-02-2020 01-02-2020 Episodic Unclassified (1 source) Dementia in other diseases classified elsewhere, severe, without behavioral disturbance, psychotic disturbance, mood disturbance, and anxiety (HCC); Translations: [Dementia in other diseases classified elsewhere, severe, without behavioral disturbance, psychotic disturbance, mood disturbance, and anxiety (HCC)] Onset: 09-27-2024 Urinary tract infections (12 sources) Recurrent urinary tract infection; Translations: [Urinary tract infection, site not specified] Onset: 02-01-2024 Resolved: 08-08-2024 06-20-2023 Episodic Results Test Name Value Interpretation Reference Range Facility [facility] 11-04-19 25 [facility] * * *Final Report* * * DATE OF EXAM: Nov 03 2024 11:08AM U 1055 - [facility] / PROCEDURE REASON: N20.1-Left ureteral stone * * * * Physician Interpretation * * * * EXAMINATION: RENAL ULTRASOUND CLINICAL HISTORY: Left ureteral stone TECHNIQUE: Sonography of the kidneys and urinary bladder was performed. Images were obtained and stored in a permanent archive. MQ: UR_1 COMPARISON: CT of 08/06/2024 RESULT: Right Kidney: -Renal length: 9.9 cm -Parenchyma: Normal parenchymal echogenicity. Normal parenchymal thickness. -Collecting system: No hydronephrosis. -Calculus: No echogenic, shadowing calculus. -Lesion: None. Left Kidney: -Renal length: 10.1 cm -Parenchyma: Normal parenchymal echogenicity. Normal parenchymal thickness. -Collecting system: No hydronephrosis. -Calculus: No echogenic, shadowing calculus. -Lesion: None. Bladder: 6 mm calculus seen at the left ureterovesical junction. No focal abnormality seen within the urinary bladder. IMPRESSION: Left UVJ calculus measuring 6 mm. Assistant At Surgery: JAYDA Transcribe Date/Time: Nov 03 2024 1:15P Dictated by : HEATHER YUNG MD This examination was interpreted and the report reviewed and electronically signed by: HEATHER YUNG MD on Nov 03 2024 1:21PM EST [id number] Normal [facility] US Kidney - bilateral and Ur inary bladderon 11-03-2024 IMPRESSION: Left UVJ calculus measuring 6 mm. Assistant At Surgery: JAYDA Transcribe Date/Time: Nov 03 2024 1:15P Dictated by : HEATHER YUNG MD This examination was interpreted and the report reviewed and electronically signed by: HEATHER YUNG MD on Nov 03 2024 1:21PM EST [facility] * * *Final Report* * * DATE OF EXAM: Nov 03 2024 11:08AM [facility] [place] [facility] - [place] KIDNEY/BLADDER / PROCEDURE REASON: N20.1-Left ureteral stone * * * * Physician Interpretation * * * * EXAMINATION: RENAL ULTRASOUND CLINICAL HISTORY: Left ureteral stone TECHNIQUE: Sonography of the kidneys and urinary bladder was performed. Images were obtained and stored in a permanent archive. MQ: UR_1 COMPARISON: CT of 08/06/2024 RESULT: Right Kidney: -Renal length: 9.9 cm -Parenchyma: Normal parenchymal echogenicity. Normal parenchymal thickness. -Collecting system: No hydronephrosis. -Calculus: No echogenic, shadowing calculus. -Lesion: None. Left Kidney: -Renal length: 10.1 cm -Parenchyma: Normal parenchymal echogenicity. Normal parenchymal thickness. -Collecting system: No hydronephrosis. -Calculus: No echogenic, shadowing calculus. -Lesion: None. Bladder: 6 mm calculus seen at the left ureterovesical junction. No focal abnormality seen within the urinary bladder. [facility] Provider, [facility] [place] - 11/03/2024 * * *Final Report* * * DATE OF EXAM: Nov 03 2024 11:08AM [facility] [place] [facility] - US KIDNEY/BLADDER / PROCEDURE REASON: N20.1-Left ureteral stone * * * * Physician Interpretation * * * * EXAMINATION: RENAL ULTRASOUND CLINICAL HISTORY: Left ureteral stone TECHNIQUE: Sonography of the kidneys and urinary bladder was performed. Images were obtained and stored in a permanent archive. MQ: UR_1 COMPARISON: CT of 08/06/2024 RESULT: Right Kidney: -Renal length: 9.9 cm -Parenchyma: Normal parenchymal echogenicity. Normal parenchymal thickness. -Collecting system: No hydronephrosis. -Calculus: No echogenic, shadowing calculus. -Lesion: None. Left Kidney: -Renal length: 10.1 cm -Parenchyma: Normal parenchymal echogenicity. Normal parenchymal thickness. -Collecting system: No hydronephrosis. -Calculus: No echogenic, shadowing calculus. -Lesion: None. Bladder: 6 mm calculus seen at the left ureterovesical junction. No focal abnormality seen within the urinary bladder. IMPRESSION IMPRESSION: Left UVJ calculus measuring 6 mm. Assistant At Surgery: JAYDA Transcribe Date/Time: Nov 03 2024 1:15P Dictated by : HEATHER YUNG MD This examination was interpreted and the report reviewed and electronically signed by: HEATHER YUNG MD on Nov 03 2024 1:21PM EST [facility] Radiology Study observation (narrative) [facility] US Kidney - bilateral and Ur inary bladderOrdered By: [facility] Provider on 11-03-2024 [facility] XR ABDOMEN 1V SUPINEon 11-03 XR ABDOMEN 1V SUPINE * * *Final Report* * * DATE OF EXAM: Nov 03 2024 10:15AM [facility] [id number] - XR ABDOMEN 1V SUPINE / PROCEDURE REASON: N20.1-Left ureteral stone * * * * Physician Interpretation * * * * EXAMINATION: ABDOMINAL RADIOGRAPH Clinical History: Left ureteral stone M: XC1_4 Comparison: 08/06/[address] TECHNIQUE: Single view(s) of the abdomen RESULT: Lines, tubes, and devices: None are seen. Bowel Gas Pattern: Bowel gas pattern unremarkable. No free air is visualized. Calcifications: No definite renal stones. Multiple pelvic calcifications are noted. Other: No additional findings IMPRESSION: No definite renal stones. Would recommend ultrasound of kidneys if the patient is symptomatic due to the presence of several phleboliths in the pelvis limiting assessment Assistant At Surgery: [facility] Transcribe Date/Time: Nov 08 2024 11:20A Dictated by : JOSE CARLOS AMEZQUITA MD This examination was interpreted and the report reviewed and electronically signed by: JOSE CARLOS AMEZQUITA MD on Nov 08 2024 11:23AM EST [id number] Normal [facility] CT CERVICAL SPINE WO IV CONT [facility] 09-27-2024 CT CERVICAL SPINE WO IV CONTRAST [facility] 1940 [id number] Exam Date/Time: 09/27/2024 17:14 Procedure: CT CERVICAL SPINE WO IV CONTRAST Ordering Provider: MORIN MICHAEL Reason For Exam: fall, advanced dementia CT HEAD: CLINICAL INDICATION: fall. Dementia. Pain TECHNIQUE: Transaxial CT sequence performed through the head with 3 mm reconstruction. Sagittal and Coronal reconstruction images included. Dose reduction employed with automated exposure control. COMPARISON: 06/09/2020 FINDINGS: Ventricles and Extra-axial spaces: Generalized enlargement of the ventricles and sulci. No abnormal extracerebral collection identified. Cerebral and cerebellar parenchyma: Periventricular low attenuation areas bilaterally, corresponding to chronic microvascular ischemic change. No additional focal mass lesion or evidence for acute infarct throughout the cerebrum or cerebellum. Hemorrhage: None Brainstem: Normal Visualized Paranasal sinuses: Normal. Mastoid air cells: Normal Visualized Orbits: Normal Calvarium and skull base: Normal Other: Atherosclerotic calcification within the distal internal carotid and vertebral arteries IMPRESSION: Diminished cerebral volume and evidence of chronic microvascular ischemic change without acute intracranial abnormality. CT CERVICAL SPINE: TECHNIQUE: Transaxial sequence through the cervical spine. Coronal and sagittal reconstructions included. Dose reduction was employed with automated exposure control. COMPARISON: None FINDINGS: Cervical vertebrae and joints: No fracture, subluxation or other malalignment. Minor facet hypertrophy noted greater on the left than the right. Osteopenia is noted. No bone lesion identified. Intervertebral disc spaces and spinal canal: Spurring and disc space narrowing from C3-C4 through C7-T1. No bony encroachment upon the cervical spinal canal. Soft tissues: Surrounding soft tissues of the neck are unremarkable on this noncontrast examination.. Other: Lung apices are unremarkable. IMPRESSION: No acute abnormality identified throughout the cervical spine. Cervical spondylosis Report Dictated on Electronically Signed By: Kwame Urban MD Electronically Signed Date/Time: 09/27/2024 5:54 PM EDT To room 4 via EMS from detention-they report patient was found in a bed across the hallway. Told them she fell and crawled into the bed. Presents to ER alert to self and place only-normal per EMS. No visible signs of injury, denies falling and has no complaints. Normal [facility] CT Cervical spine WO contras ton 09-27-2024 Patient Name: CJ GILLIS : 1940 Exam Date/Time: 09/27/2024 17:14 Procedure: CT CERVICAL SPINE WO IV CONTRAST Ordering Provider: MORIN MICHAEL Reason For Exam: fall, advanced dementia CT HEAD: CLINICAL INDICATION: fall. Dementia. Pain TECHNIQUE: Transaxial CT sequence performed through the head with 3 mm reconstruction. Sagittal and Coronal reconstruction images included. Dose reduction employed with automated exposure control. COMPARISON: 06/09/2020 FINDINGS: Ventricles and Extra-axial spaces: Generalized enlargement of the ventricles and sulci. No abnormal extracerebral collection identified. Cerebral and cerebellar parenchyma: Periventricular low attenuation areas bilaterally, corresponding to chronic microvascular ischemic change. No additional focal mass lesion or evidence for acute infarct throughout the cerebrum or cerebellum. Hemorrhage: None Brainstem: Normal Visualized Paranasal sinuses: Normal. Mastoid air cells: Normal Visualized Orbits: Normal Calvarium and skull base: Normal Other: Atherosclerotic calcification within the distal internal carotid and vertebral arteries [facility] Kwame Urban MD - 09/27/2024 Patient Name: CJ GILLIS : 1940 Exam Date/Time: 09/27/2024 17:14 Procedure: CT CERVICAL SPINE WO IV CONTRAST Ordering Provider: MORIN MICHAEL Reason For Exam: fall, advanced dementia CT HEAD: CLINICAL INDICATION: fall. Dementia. Pain TECHNIQUE: Transaxial CT sequence performed through the head with 3 mm reconstruction. Sagittal and Coronal reconstruction images included. Dose reduction employed with automated exposure control. COMPARISON: 06/09/2020 FINDINGS: Ventricles and Extra-axial spaces: Generalized enlargement of the ventricles and sulci. No abnormal extracerebral collection identified. Cerebral and cerebellar parenchyma: Periventricular low attenuation areas bilaterally, corresponding to chronic microvascular ischemic change. No additional focal mass lesion or evidence for acute infarct throughout the cerebrum or cerebellum. Hemorrhage: None Brainstem: Normal Visualized Paranasal sinuses: Normal. Mastoid air cells: Normal Visualized Orbits: Normal Calvarium and skull base: Normal Other: Atherosclerotic calcification within the distal internal carotid and vertebral arteries IMPRESSION: Diminished cerebral volume and evidence of chronic microvascular ischemic change without acute intracranial abnormality. CT CERVICAL SPINE: TECHNIQUE: Transaxial sequence through the cervical spine. Coronal and sagittal reconstructions included. Dose reduction was employed with automated exposure control. COMPARISON: None FINDINGS: Cervical vertebrae and joints: No fracture, subluxation or other malalignment. Minor facet hypertrophy noted greater on the left than the right. Osteopenia is noted. No bone lesion identified. Intervertebral disc spaces and spinal canal: Spurring and disc space narrowing from C3-C4 through C7-T1. No bony encroachment upon the cervical spinal canal. Soft tissues: Surrounding soft tissues of the neck are unremarkable on this noncontrast examination.. Other: Lung apices are unremarkable. IMPRESSION: No acute abnormality identified throughout the cervical spine. Cervical spondylosis Report Dictated on Electronically Signed By: Kwame Urban MD Electronically Signed Date/Time: 09/27/2024 5:54 PM EDT [facility] Radiology Study observation (narrative) [facility] CT HEAD WO IV CONTRASTon CT HEAD WO IV CONTRAST Patient Name: CJ GILLIS : 1940 Exam Date/Time: 09/27/2024 17:14 Procedure: CT HEAD WO IV CONTRAST Ordering Provider: MORIN MICHAEL Reason For Exam: fall CT HEAD: CLINICAL INDICATION: fall. Dementia. Pain TECHNIQUE: Transaxial CT sequence performed through the head with 3 mm reconstruction. Sagittal and Coronal reconstruction images included. Dose reduction employed with automated exposure control. COMPARISON: 06/09/2020 FINDINGS: Ventricles and Extra-axial spaces: Generalized enlargement of the ventricles and sulci. No abnormal extracerebral collection identified. Cerebral and cerebellar parenchyma: Periventricular low attenuation areas bilaterally, corresponding to chronic microvascular ischemic change. No additional focal mass lesion or evidence for acute infarct throughout the cerebrum or cerebellum. Hemorrhage: None Brainstem: Normal Visualized Paranasal sinuses: Normal. Mastoid air cells: Normal Visualized Orbits: Normal Calvarium and skull base: Normal Other: Atherosclerotic calcification within the distal internal carotid and vertebral arteries IMPRESSION: Diminished cerebral volume and evidence of chronic microvascular ischemic change without acute intracranial abnormality. CT CERVICAL SPINE: TECHNIQUE: Transaxial sequence through the cervical spine. Coronal and sagittal reconstructions included. Dose reduction was employed with automated exposure control. COMPARISON: None FINDINGS: Cervical vertebrae and joints: No fracture, subluxation or other malalignment. Minor facet hypertrophy noted greater on the left than the right. Osteopenia is noted. No bone lesion identified. Intervertebral disc spaces and spinal canal: Spurring and disc space narrowing from C3-C4 through C7-T1. No bony encroachment upon the cervical spinal canal. Soft tissues: Surrounding soft tissues of the neck are unremarkable on this noncontrast examination.. Other: Lung apices are unremarkable. IMPRESSION: No acute abnormality identified throughout the cervical spine. Cervical spondylosis Report Dictated on Electronically Signed By: Kwame Urban MD Electronically Signed Date/Time: 09/27/2024 5:54 PM EDT To room 4 via EMS from detention-they report patient was found in a bed across the hallway. Told them she fell and crawled into the bed. Presents to ER alert to self and place only-normal per EMS. No visible signs of injury, denies falling and has no complaints. Normal [facility] CT Head WO contraston 2024 Patient Name: CJ GILLIS : 1940 Exam Date/Time: 09/27/2024 17:14 Procedure: CT HEAD WO IV CONTRAST Ordering Provider: MORIN MICHAEL Reason For Exam: fall CT HEAD: CLINICAL INDICATION: fall. Dementia. Pain TECHNIQUE: Transaxial CT sequence performed through the head with 3 mm reconstruction. Sagittal and Coronal reconstruction images included. Dose reduction employed with automated exposure control. COMPARISON: 06/09/2020 FINDINGS: Ventricles and Extra-axial spaces: Generalized enlargement of the ventricles and sulci. No abnormal extracerebral collection identified. Cerebral and cerebellar parenchyma: Periventricular low attenuation areas bilaterally, corresponding to chronic microvascular ischemic change. No additional focal mass lesion or evidence for acute infarct throughout the cerebrum or cerebellum. Hemorrhage: None Brainstem: Normal Visualized Paranasal sinuses: Normal. Mastoid air cells: Normal Visualized Orbits: Normal Calvarium and skull base: Normal Other: Atherosclerotic calcification within the distal internal carotid and vertebral arteries [facility] Kwame Urban MD - 09/27/2024 [facility] 1940 [id number] Exam Date/Time: 09/27/2024 17:14 Procedure: CT HEAD WO IV CONTRAST Ordering Provider: MORIN MICHAEL Reason For Exam: fall CT HEAD: CLINICAL INDICATION: fall. Dementia. Pain TECHNIQUE: Transaxial CT sequence performed through the head with 3 mm reconstruction. Sagittal and Coronal reconstruction images included. Dose reduction employed with automated exposure control. COMPARISON: 06/09/2020 FINDINGS: Ventricles and Extra-axial spaces: Generalized enlargement of the ventricles and sulci. No abnormal extracerebral collection identified. Cerebral and cerebellar parenchyma: Periventricular low attenuation areas bilaterally, corresponding to chronic microvascular ischemic change. No additional focal mass lesion or evidence for acute infarct throughout the cerebrum or cerebellum. Hemorrhage: None Brainstem: Normal Visualized Paranasal sinuses: Normal. Mastoid air cells: Normal Visualized Orbits: Normal Calvarium and skull base: Normal Other: Atherosclerotic calcification within the distal internal carotid and vertebral arteries IMPRESSION: Diminished cerebral volume and evidence of chronic microvascular ischemic change without acute intracranial abnormality. CT CERVICAL SPINE: TECHNIQUE: Transaxial sequence through the cervical spine. Coronal and sagittal reconstructions included. Dose reduction was employed with automated exposure control. COMPARISON: None FINDINGS: Cervical vertebrae and joints: No fracture, subluxation or other malalignment. Minor facet hypertrophy noted greater on the left than the right. Osteopenia is noted. No bone lesion identified. Intervertebral disc spaces and spinal canal: Spurring and disc space narrowing from C3-C4 through C7-T1. No bony encroachment upon the cervical spinal canal. Soft tissues: Surrounding soft tissues of the neck are unremarkable on this noncontrast examination.. Other: Lung apices are unremarkable. IMPRESSION: No acute abnormality identified throughout the cervical spine. Cervical spondylosis Report Dictated on Electronically Signed By: Kwame Urban MD Electronically Signed Date/Time: 09/27/2024 5:54 PM EDT [facility] Radiology Study observation (narrative) [facility] ECG 12-LEADon 09-27-2024 ECG 12-LEAD IMPRESSION: Sinus rhythm Left bundle branch block Electronically Signed On 09-27-2024 19:20:01 EDT by Dayton Dumont Normal [facility] ED Nursing Noteon 09-27-2024 ED Nursing Note RN sat with pt as a sitter because she is her fall risk and a wanderer. Normal [facility] ED Nursing Note Trying to swing legs over the siderail to look for shoes-yelling that we took her shoes (did not come with shoes). Normal [facility] ED Nursing Note Attempted to call re port to [facility] but no one answered. Pt continues to try and get out of bed and yelling that wants to drive home. Advised that is waiting on ambulance to take her home [facility] ED Nursing Note Sitting up in bed ta king ALBERT fluids well. Agitated-mad that left, we won't bring her daughter back (no daughter here) and that she's been waiting for 4 hours (not even 2). States came here after work and wants to just walk home because has to go back to work later. Normal [facility] ED Nursing Note Pt sitting up in bed agitated and confused. Aware that is waiting for ambulance to pick her up. RN sitting at bedside [facility] ED Nursing Note Pt's rehabilitation supervisor light-states he fell asleep at the bedside and woke up to patient standing at bedside. Pt returned to bed-oriented to self only. Advised that is being discharged but he declined to take her back to [facility]. States she gets more confused and nasty at night-good luck" and left. Normal [facility] ED Nursing Note To radiology via stretcher [facility] ED Nursing Note Spouse at bedside-st pizano patient "seems normal to me". Aware that will get EKG and radiology studies here Normal [facility] ED Nursing Note To room 4 via EMS fr detention-they report patient was found in a bed across the hallway. Told them she fell and crawled into the bed. Presents to ER alert to self and place only-normal per EMS. No visible signs of injury, denies falling and has no complaints. Moving extremities well. DNRCC arrest Normal [facility] ED Provider Noteon ED Provider Note EMERGENCY DEPARTMENT ENCOUNTER Pt Name: Cj Gillis Birthdate 1940 Date of evaluation: 09/27/2024 ED Provider: Dayton Morin DO CHIEF COMPLAINT Chief Complaint Patient presents with Other HISTORY OF PRESENT ILLNESS (Location/Symptom, Timing/Onset, Context/Setting, Quality, Duration, Modifying Factors, Severity) Note limiting factors. HPI Cj Gillis is a 84 y.o. female who presents to the emergency department after being found facedown in a different bed in a different room at her detention today. Unknown whether she fell, this was unwitnessed. She denies falling but has advanced dementia and is not answering any questions correctly for paramedics. They have not noted any injuries or deficits. DNR [facility] paperwork is with her at the bedside. She is not on anticoagulants. Family has been notified that she was coming here. Blood sugar normal and route. Has not been complaining of pain or acting differently per the detention staff report to the medics. Nursing Notes were reviewed. REVIEW OF SYSTEMS All systems reviewed and negative except as noted above. PAST MEDICAL HISTORY Medical History[1] SURGICAL HISTORY Surgical History[2] CURRENT MEDICATIONS Previous Medications ACETAMINOPHEN (TYLENOL) 500 MG TABLET Take 500 mg by mouth in the morning and 500 mg before bedtime. ASPIRIN 325 MG TABLET Take 325 mg by mouth in the morning. CHOLECALCIFEROL (VITAMIN D3) 125 MCG (5000 UT) TABLET DISPERSIBLE Take 125 mcg by mouth daily. DIPHENHYDRAMINE (BENADRYL) 12.5 MG CHEWABLE TABLET Chew 12.5 mg every 8 hours as needed for itching (hives- take with Prednisone). DULOXETINE HCL 30 MG CAPSULE DELAYED RELEASE SPRINKLE Take 60 mg by mouth daily. ENALAPRIL (VASOTEC) 10 MG TABLET TAKE ONE-HALF (1/2) TABLET DAILY FAMOTIDINE (PEPCID) 20 MG TABLET TAKE 1 TABLET DAILY GLUCOSE BLOOD (BLOOD GLUCOSE TEST) STRIP Test two times a day & as needed for symptoms of irregular blood glucose. JANUVIA 100 MG TABLET TAKE 1 TABLET DAILY LOPERAMIDE (IMODIUM A-D) 2 MG TABLET Take 2 mg by mouth as needed for diarrhea (not to exceed 8mg/day). LORATADINE (CLARITIN) 10 MG TABLET TAKE 1 TABLET DAILY METFORMIN XR (GLUCOPHAGE-XR) 500 MG 24 HR TABLET Take 2 tablets (1,000 mg) by mouth 2 times daily. METOPROLOL SUCCINATE XL (TOPROL-XL) 25 MG 24 HR TABLET Take 0.5 tablets (12.5 mg) by mouth daily. Do not crush or chew. PREDNISONE (DELTASONE) 20 MG TABLET Take 1 tablet by mouth once daily as needed for hives. ALLERGIES Hydrocodone-acetaminophen, Celecoxib, Morphine, Rofecoxib, and Statins FAMILY HISTORY Family History[3] SOCIAL HISTORY Social History[4] PHYSICAL EXAM ED Triage Vitals [09/27/24 1659] Temp Pulse Resp BP 36.7 ?C (98 ?F) -- 14 -- SpO2 Temp Source Heart Rate Source Patient Position -- Temporal -- -- BP Location FiO2 (%) -- -- General: Thin but well-developed elderly patient lying in bed who appears non-toxic. Head: Atraumatic, normocephalic. No signs of basilar skull fracture. Eyes: No ocular trauma. EOMI. No proptosis. ENT: No facial or dental trauma. Neck: No cervical midline tenderness. No stepoff, crepitus, ecchymosis or deformity. Back: No midline tendernes. No stepoff, crepitus, ecchymosis or deformity. Chest: Non-tender, no crepitus, ecchymosis or deformity. Heart: Regular rate and rhythm. Lungs: Clear to auscultation bilaterally. Normal respiratory pattern without respiratory distress. Abdomen: Soft, non-tender, non-distended, no guarding or peritoneal signs. Pelvis: Stable, non-tender. Neurologic: Awake and alert, nonverbal for me. Pupils equal. Moves all extremities equally well. Psychiatric: Unable to assess. Skin: Warm and dry, no lacerations. Musculoskeletal: Extremities atraumatic x 4. All long bones palpated, all joints put through passive range of motion without pain or crepitus. DIAGNOSTIC RESULTS/EMERGENCY DEPARTMENT COURSE and DIFFERENTIAL DIAGNOSIS/MDM: Vitals: Vitals: 09/27/24 1659 09/27/24 1700 BP: (!) 139/43 Pulse: 74 Resp: 14 Temp: 36.7 ?C (98 ?F) TempSrc: Temporal SpO2: 98% Weight: 54.4 kg (120 lb) Height: 1.626 m (5' 4") EKG: EKG was reviewed by myself. Physician EKG interpretation can be found in [facility]. LABS: Labs Reviewed - No data to display All other labs were within normal range or not returned as of this dictation. 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 ECG/medicine tests: ordered. History obtained from paramedics. Records reviewed include CT of the head which showed severe atrophy but no acute intracranial hemo (more content not included)... Normal [employer] [facility] No Panel InformationOrdered By: Dayton Dumont on 09-27-2024 P Sipsey 59 degrees [employer] Phone: [place] Interval 161 ms [employer] Work Phone: QRS [place]ip[place] 36 degrees [employer] Phone: QRSD Interval 140 ms [employer] Work Phone: QT Interval 414 ms [employer] Work Phone: QTC Interval 455 ms [employer] Work Phone: T Wave Sipsey 165 degrees [employer] Phone: [employer] Work Phone: No Panel Informationon 09-27 Sinus rhythm Left bundle branch block Electronically Signed On 09-27-2024 19:20:01 EDT by Dayton Dumont CV Dayton Summers MD - 09/27/2024 IMPRESSION: Sinus rhythm Left bundle branch block Electronically Signed On 09-27-2024 19:20:01 EDT by Dayton Dumont [employer] Diminished cerebral volume and evidence of chronic microvascular ischemic change without acute intracranial abnormality. CT CERVICAL SPINE: TECHNIQUE: Transaxial sequence through the cervical spine. Coronal and sagittal reconstructions included. Dose reduction was employed with automated exposure control. COMPARISON: None FINDINGS: Cervical vertebrae and joints: No fracture, subluxation or other malalignment. Minor facet hypertrophy noted greater on the left than the right. Osteopenia is noted. No bone lesion identified. Intervertebral disc spaces and spinal canal: Spurring and disc space narrowing from C3-C4 through C7-T1. No bony encroachment upon the cervical spinal canal. Soft tissues: Surrounding soft tissues of the neck are unremarkable on this noncontrast examination.. Other: Lung apices are unremarkable. IMPRESSION: No acute abnormality identified throughout the cervical spine. Cervical spondylosis Report Dictated on Electronically Signed By: Kwame Urban MD Electronically Signed Date/Time: 09/27/2024 5:54 PM EDT [facility] No Panel InformationOrdered By: Kwame Urban on 09-27-2024 [employer] Phone: Vital signsOrdered By: Jean Pierre Dumont on 09-27-2024 Heart rate 73 /min bpm [employer] Phone: ANES POSTPROC EVALon 025 ANES POSTPROC EVAL HNO ID: [id number] Author: CHEYANNE GOMEZ MD Service: Anesthesiology Author Type: Anesthesiologist Type: Anesthesia Postprocedure Evaluation Filed: 08/28/2024 15:44 Note Text: POST ANESTHESIA EVALUATION NOTE : 1940 Procedure Summary Date: 08/28/24 Room / Location: DC OR04 / DC OR Anesthesia Start: 1353 Anesthesia Stop: 1444 [...] August 28, 2024 TIME: 3:44 PM CSN: [id number] [facility] ANES PRE-OPon 08-28-2024 ANES PRE-OP HNO ID: [id number] Author: ALEC PERRIN MD Service: Anesthesiology Author Type: Anesthesiologist Type: Anesthesia Preprocedure Evaluation Filed: 08/28/2024 12:44 Note Text: ANESTHESIOLOGY DAY OF SURGERY NOTE : 1940 Procedure Information Date/Time: 08/28/24 1230 Procedures: LASER CYSTOURETHROSCOPY W/ URETEROSCOPY AND/OR PYELOSCOPY W/ LITHOTRIPSY MASTER PULSE HOLMIUM (Left: Renal) CYSTOURETHROSCOPY W/ REMOVE URETERAL STENT (Left: Ureter) INSERTION STENT URETERAL (Left: Ureter) Location: DC OR04 / DC OR Surgeons: Rey Rowan MD Estimated body mass index is 19.49 kg/m? as calculated from the following: Height as of this encounter: 160 cm (5' 3"). Weight as of this encounter: 49.9 kg [...] and fax results to Dr. Sprague at [phone] Lancets lancets Test Two times a day. Insulin Dep? No E11.9 DM 2 alcohol swabs (ALCOHOL PADS (more content not included)... [facility] CALCULI ANALYSISon 5 CALCULI COLOR [employer] [facility] Comment on above: Order Comment: Speci men Type: CALCULUS SPECIMENOrdering Facility: [facility] Address: [address] [place] [address] Performed By: #### C ####[facility] LABCL[facility] [id number] [place] [address] [place] CALCULI COMPOSITION Normal [facility] Comment on above: Order Comment: Speci men Type: CALCULUS SPECIMENOrdering Facility: [facility] Address: [address] [place], [place] [address] [address] Result Comment: 50% Calcium Oxalate Monohydrate 30% Calcium Oxalate Dihydrate 20% Uric Acid This test was developed, and its performance characteristics determined by the [facility] Department of Pathology and Laboratory Medicine. It has not been cleared or approved by the FDA. The [facility] Department of Pathology and Laboratory Medicine is regulated under CLIA as qualified to perform high-complexity testing. This test is used for clinical purposes. It should not be regarded as investigational or for research. Performed By: #### C SA ####[facility]IA [id number] [place] [address] [place] CALCULI SIZE AND WT Multiple pieces 0.02 47 GRAMS [facility] Comment on above: Order Comment: Speci men Type: CALCULUS SPECIMENOrdering Facility: [facility] Address: [address] [place] [address] Performed By: #### C SA ####[facility] [id number] [place] [address] [place] CALCULI TYPE Calculi or Calculus Normal [facility] Comment on above: Order Comment: Speci men Type: CALCULUS SPECIMENOrdering Facility: [facility] Address: [facility][note 3] [place] [address] Performed By: #### C SA ####[facility] [id number] [address] OF [place] Malaika 08-28-2024 YULI Telephone (JUANIS) CJ GILLIS ([id number]) 1940 F Date Time Provider Department 08/28/24 REY ROWAN During your visit today, we recorded the following information about you: Areli Moon 09/16/2024 11:54 AM Signed Left message for patient to call and schedule 6 wk post op and imaging. Thank you, Stephanie Curry 10/24/2024 9:49 AM Signed Patient scheduled imaging but declined scheduling follow up appt due to transportation issues. Patient is in detention. Thanks, Stephanie Moore Allergies As of Date: 08/28/2024 Noted Allergy Reaction CELECOXIB 08/04/2003 Comments: PALPITATIONS LIPITOR (ATORVASTATIN CALCIUM) 04/28/2009 14 - Other: See Comments Comments: Suspects lipitor decreases her hearing loss and tinnitus and liver spots. MORPHINE 08/04/2003 8 - GI Upset OPIOIDS-MEPERIDINE AND RELATED 08/04/2003 8 - GI Upset ROFECOXIB 08/04/2003 Comments: PALPITATIO;NS Date Reviewed: 08/28/2024 Reviewed by: Guerita Means, RN - Fully Assessed Reason for Visit: Appointment [186] Prescriptions as of 10/24/2024 - Aspirin 81 mg tab Take 81 mg by mouth once daily. - lidocaine (SALONPAS) 4 % patch Apply 1 application as directed once daily. - tamsulosin (FLOMAX) 0.4 mg Take 1 [...] and fax results to Dr. Sprague at [phone] - Lancets lancets Test Two times a [...] as needed. Problem List As Of Date 08/28/2024 Noted Resolved Personal History of Venous Thrombosis and Embol*02/04/2003 DM type 2 (diabetes mellitus, type 2) ([facility]) [E1*08/04/2003 Essential hypertension, benign [I10] 08/04/2003 Generalized [...] Encounter Status:Closed by REY ROWAN on 08/28/24 [facility] OPERATIVE NOon 08-28-2024 OPERATIVE NO HNO ID: [id number] Author: REY ROWAN MD Service: Urology Author Type: Physician Type: Operative Report Filed: 08/28/2024 14:39 Note Text: UROLOGY SERVICE OPERATIVE NOTE LOG ID: [id number] Surgery/Procedure Date: 08/28/2024 Incision/Procedure Start Time: 2:14 PM Incision Close/Procedure End Time: 2:32 PM Patient Age: [age] year old Surgeon(s)/Proceduralist(s) and Commercial Installer(s): Surgeons and Role: * Rey Rowan MD - Primary * Christel Alvares MD - Resident - Assisting Physician Commercial Installer: Lesia Gallagher PA-C Anesthesia: General Preop Diagnosis: Pre-Op Diagnosis Codes: * Renal calculus, left [N20.0] Postop Diagnosis: Same as preoperative diagnosis Procedure: - Cystoscopy - Left stent removal - Left ureteroscopy - Laser lithotripsy - Basket stone extraction Estimated Blood Loss: 0 mls Accidental punctures or Lacerations: None Cultures: None Findings: Stone Boaz: 5 mm distal left ureter Lithotripsy Technique: fragmenting and basket extraction Laser: 365 micron Quanta 100W holmium laser laser Fragmentation: 1 J and 5 Hz, virtual basket; 1 J and 10 Hz, Magneto Irrigation: [place]thaca bag; max pressure gravity Fluoroscopy: No fluoroscopy [...] to bleeding, infection and potential ureteral injury. skilled nursing risk of potential ureteral stricture was also [...] confirm the patient, procedure and laterality. A 22-Azerbaijani cystoscope was advanced through the urethra and [...] into pieces which were extracted with the N'Neeses and sent for analysis. Ureter was patent [...] Gillis DATE: 08/28/2024 TIME: 2:35 PM PAGER: [phone] [facility] ([id number]) 1940 F Date Time Provider Department 08/27/24 JET SMART PREZEV During your visit today, we recorded the following information about you: Jet Smart LPN 08/27/2024 1:57 PM [address] Nurse at [facility]) requesting medication instructions for tomorrow's surgery. Pt did not see PACC-seen in ED. Can you help? Norma Pleitez, RN 08/27/2024 2:19 PM Signed [facility] PATIENT PREOPERATIVE INSTRUCTIONS Dr. Rey Rowan has scheduled you for your procedure at this surgery center: [facility]: [phone] -- [address] [facility] [address]. Please read below carefully for your personalized [...] office. If you are currently using a [id number] injectable or oral medication for diabetes or [...] Advance Directive, please fax a copy to [phone] or email to for it to be [...] by: Aditi Adam RN - Fully Assessed Prescriptions as of 08/27/2024 [...] once daily. - (more content not included)... [facility] 08-22-[address] [facility] Telephone (STORM) CJ GILLIS ([id number]) 1940 F Date Time Provider Department 08/22/24 REY ROWAN During your visit today, we recorded the following information about you: Jaxon Hansen 08/22/2024 10:12 AM Signed Patient had surgery on 08/06/24, cysto stent insertion Please advise for follow up. Patient's daughter, [email or web address]#[phone]--ok to leave message. Thank you Radha Cummins 08/22/2024 3:42 PM Signed August 22, 2024 3:41 PM Patient is scheduled for PAT on : N/A Surgery at [place] with Dr. Rowan on 08/28/2024 Patient is aware of date, time, location, and pre op instructions. Patient had no further questions at this time. Surgical information has been sent to patient via [facility]. Radha Gavino Allergies As of Date: 08/22/2024 Noted Allergy Reaction CELECOXIB 08/04/2003 Comments: PALPITATIONS LIPITOR (ATORVASTATIN CALCIUM) 04/28/2009 14 - Other: See Comments Comments: Suspects lipitor decreases her hearing loss and tinnitus and liver spots. MORPHINE 08/04/2003 8 - GI Upset OPIOIDS-MEPERIDINE AND RELATED 08/04/2003 8 - GI Upset ROFECOXIB 08/04/2003 Comments: PALPITATIO;NS Date Reviewed: 08/06/2024 Reviewed by: Aditi Adam, INDIRA - Fully Assessed Reason for Visit: Patient Question [0227] Prescriptions as of 08/22/2024 - tamsulosin (FLOMAX) [...] and fax results to Dr. Sprague at [phone] - Lancets lancets Test Two times a [...] Encounter Status:Closed by JAXON HANSEN on 08/22/24 [facility] ANES POSTPROC EVALon 025 ANES POSTPROC EVAL HNO ID: [id number] Author: DEMARIO NICHOLSON MD Service: Anesthesiology Author Type: Physician Type: Anesthesia Postprocedure Evaluation Filed: 08/08/2024 08:05 Note Text: POST ANESTHESIA EVALUATION NOTE : 1940 Procedure Summary Date: 08/06/24 Room / Location: [place] OR / [place] OR Anesthesia Start: 1833 Anesthesia Stop: 1906 [...] August 08, 2024 TIME: 8:04 AM CSN: [id number] Normal [facility] Basic metabolic 2000 panelon 08-08-2024 Anion gap [Moles/Vol] 12 mmol/L Normal 8-15 [facility] Comment on above: Order Comment: Speci men Type: BLOOD SPECIMEN Ordering Facility: [facility] Address: [address] [place] [address] Performed By: #### 3 2693-4 #### [facility] CLIA [id number] [address] [place] [address] [place] [facility] Calcium [Mass/Vol] 9.1 mg/dL Normal 8.5-10.2 [facility] Comment on above: Order Comment: Speci men Type: BLOOD SPECIMEN Ordering Facility: [facility] Address: [address] [place] [address] Performed By: #### 3 2693-4 #### [facility] CLIA [id number] [address] [place] [address] [place] Chloride [Moles/Vol] 102 mmol/L Normal 98-107 [facility] Comment on above: Order Comment: Speci men Type: BLOOD SPECIMEN Ordering Facility: [facility] Address: [address] [place] [address] Performed By: #### 3 2693-4 #### [facility] CLIA [id number] [address] [place] [address] CO2 [Moles/Vol] 24 mmol/L Normal 22-30 [facility] Comment on above: Order Comment: Speci men Type: BLOOD SPECIMEN Ordering Facility: [facility] Address: [address] [place] [address] Performed By: #### 3 2693-4 #### [facility] CLIA [id number] [address] OF [facility] Creatinine [Mass/Vol] 0.67 mg/dL Normal 0.58-0.96 [facility] Comment on above: Order Comment: Speci men Type: BLOOD SPECIMEN Ordering Facility: [facility] Address: [address] [place] [address] Performed By: #### 3 2693-4 #### [facility] CLIA [id number] [address] Creatinine and Glomerular filtration rate.predicted panel (S/P/Bld) 86 mL/min/1.73m??? Normal >=60 [facility] Comment on above: Order Comment: Speci men Type: BLOOD SPECIMEN Ordering Facility: [facility] Address: [address] [place] [address] Result Comment: Ashli mated Glomerular Filtration Rate [...] GFR. Performed By: #### 3 2693-4 #### [facility] CLIA [id number] [address] Glucose [Mass/Vol] 151 mg/dL High 74-99 [facility] Comment on above: Order Comment: Jaii laly Type: BLOOD SPECIMEN Ordering Facility: [facility] Address: [address] [place] [address] Result Comment: The [place] Diabetes Association (ADA) provides guidance for cutoff [...] Standards of Medical Care in Diabetes 2016, [place] [employer]. Diabetes Care. 2016.39(Suppl 1). Performed By: #### 3 2693-4 #### [facility] CLIA [id number] [address] [facility] Potassium [Moles/Vol] 3.5 mmol/L Low 3.7-5.1 [facility] Comment on above: Order Comment: Speci men Type: BLOOD SPECIMEN Ordering Facility: [facility] Address: [address] [place] [address] Performed By: #### 3 2693-4 #### [facility] CLIA [id number] [address] STATES OF [facility] Sodium [Moles/Vol] 138 mmol/L Normal 136-144 [facility] Comment on above: Order Comment: Jaii laly Type: BLOOD SPECIMEN Ordering Facility: [facility] Address: [address] [place] [address] Performed By: #### 3 2693-4 #### [facility] CLIA [id number] [address] [facility] Urea nitrogen [Mass/Vol] 12 mg/dL Normal 7-21 [facility] Comment on above: Order Comment: Speci men Type: BLOOD SPECIMEN Ordering Facility: [facility] Address: [address] [place] [address] Performed By: #### 3 2693-4 #### [facility] CLIA [id number] [address] [facility] CBC panel Auto (Bld)on 08-08 Erythrocyte distribution width (RBC) [Ratio] 11.9 % Normal 11.5-15.0 [facility] Comment on above: Order Comment: Speci men Type: BLOOD SPECIMEN Ordering Facility: [facility] Address: [address] [place] [address] Performed By: #### 5 8410-2 #### [facility] CLIA [id number] [address] [facility] Hematocrit (Bld) [Volume fraction] 34.3 % Low 36.0-46.0 [facility] Comment on above: Order Comment: Speci men Type: BLOOD SPECIMEN Ordering Facility: [facility] Address: [address] [place] [address] Performed By: #### 5 8410-2 #### [facility] CLIA [id number] [address] [facility] Hemoglobin (Bld) [Mass/Vol] 10.8 g/dL Low 11.5-15.5 [facility] Comment on above: Order Comment: Speci men Type: BLOOD SPECIMEN Ordering Facility: [facility] Address: [address] [place] [address] Performed By: #### 5 8410-2 #### [facility] CLIA [id number] [address] MCH (RBC) [Entitic mass] 29.9 pg Normal 26.0-34.0 [facility] Comment on above: Order Comment: Speci men Type: BLOOD SPECIMEN Ordering Facility: [facility] Address: [address] [place] [address] Performed By: #### 5 8410-2 #### [facility] CLIA [id number] [address] OF [place] MCHC (RBC) [Mass/Vol] 31.5 g/dL Normal 30.5-36.0 [facility] Comment on above: Order Comment: Speci men Type: BLOOD SPECIMEN Ordering Facility: [facility] Address: [address] [place] [address] Performed By: #### 5 8410-2 #### [facility] CLIA [id number] [address] MCV (RBC) [Entitic vol] 95.0 fL Normal 80.0-100.0 [facility] Comment on above: Order Comment: Speci men Type: BLOOD SPECIMEN Ordering Facility: [facility] Address: [address] [place] [address] Performed By: #### 5 8410-2 #### [facility] CLIA [id number] [address] STATES OF [place] Nucleated RBC (Bld) [#/Vol] 10*3/uL Normal <0.01 [facility] Comment on above: Order Comment: Speci men Type: BLOOD SPECIMEN Ordering Facility: [facility] Address: [address] [place] [address] Performed By: #### 5 8410-2 #### [facility] CLIA [id number] [address] Platelet mean volume (Bld) [Entitic vol] 10.6 fL Normal 9.0-12.7 [facility] Comment on above: Order Comment: Speci men Type: BLOOD SPECIMEN Ordering Facility: [facility] Address: [address] [place] [address] Performed By: #### 5 8410-2 #### [facility] CLIA [id number] [address] Platelets (Bld) [#/Vol] 221 10*3/uL Normal 150-400 [facility] Comment on above: Order Comment: Speci men Type: BLOOD SPECIMEN Ordering Facility: [facility] Address: [address] [place] [address] Performed By: #### 5 8410-2 #### [facility] CLIA [id number] [address] OF [place] RBC (Bld) [#/Vol] 3.61 10*6/uL Low 3.90-5.20 [facility] Comment on above: Order Comment: Speci men Type: BLOOD SPECIMEN Ordering Facility: [facility] Address: [address] [place] [address] Performed By: #### 5 8410-2 #### [facility] CLIA [id number] 1 [place] [id number] [facility] WBC (Bld) [#/Vol] 8.95 10*3/uL Normal 3.70-11.00 [facility] Comment on above: Order Comment: Speci men Type: BLOOD SPECIMEN Ordering Facility: [facility] Address: [address] [place] [address] Performed By: #### 5 8410-2 #### [facility] CLIA [id number] [address] [place] [address] [facility] CNDSon 08-08-2024 CNDS HNO ID: [id number] Author: BARNEY MARIE MD Service: Hospital Medicine [...] Barney Marie MD Primary Service: STEFANO SERRANO MY CONDITION AT DISCHARGE: Stable REASON I WAS IN THE HOSPITAL: Fall and urinary stone SUMMARY OF WHAT HAPPENED WHILE I WAS IN THE HOSPITAL: 84-year-old female with type 2 diabetes mellitus, CAD, hypertension, hyperlipidemia, osteoarthritis, urge incontinence, history of prior DVT and PE not on any anticoagulation at this time, dementia with a baseline mentation of AANDO x 1 who presented to [facility] ED for renal calculus and fall. Concern for UTI prior to presentation for which she received antibiotics at and also at ER prior to transfser to [facility]. Imaging on admission with L sided [...] DM type 2 (diabetes mellitus, type 2) ([facility]) Yes Multiple abrasions Unknown Renal calculus Yes [...] cultures FOLLOW-UP APPOINTMENTS ALREADY SCHEDULED WITH A [facility] PROVIDER: No future appointments. ALLERGIES Allergen [...] E11.9 DM (more content not included)... Normal [facility] CONSULT PROGon 08-08-2024 CONSULT PROG HNO ID: [id number] Author: ART MEANS APRN.SENIOR HEALTH PHYSICS TECHNICIAN Service: Wound/Ostomy Author Type: Nurse Practitioner Type: Consult Progress Note Filed: 08/08/2024 13:34 Note Text: Summary: In-patient wound care WOUND CARE SERVICE CONSULT FOOD SERVICE DRIVER NOTE SERVICE DATE: 08/08/2024 SERVICE TIME: 1044 REASON FOR CONSULT: upper back wounds. Wound Consult (From admission, onward) Start Ordered 08/07/24 1030 WOUND CARE CONSULT ([place], [place]) ONCE Electronically Signed By: Barney Marie MD [ ] 08/07/24 1027 My final recommendations will be communicated back to the requesting physician by way of shared Medical record or letter to requesting physician via US mail. CHIEF COMPLAINT: upper back wounds. Subjective HISTORY OF PRESENT ILLNESS: Ms. Gillis is a 84 year old female who is seen today with Sadi Delgado, Wound/travel accommodations rater, and presented to hospital with complaints of [...] (Oral) Resp (more content not included)... Normal [facility] Magnesium SerPl-mCncon 08-08 Magnesium [Mass/Vol] 1.7 mg/dL Normal 1.7-2.3 [facility] Comment on above: Order Comment: Alex ruffin Type: BLOOD SPECIMEN Ordering Facility: [facility] Address: [address] [place] [address] Performed By: #### 3 2693-4 #### [facility] CLIA [id number] [address] [facility] Phosphate SerPl-mCncon 08-08 Phosphate [Mass/Vol] 2.6 mg/dL Low 2.7-4.8 [facility] Comment on above: Order Comment: Alex ruffin Type: BLOOD SPECIMEN Ordering Facility: [facility] Address: [address] [place] [address] Performed By: #### 3 2693-4 #### [facility] CLIA [id number] [address] OF [place] THERAPY NTon 08-08-2024 THERAPY NT HNO ID: [id number] Author: ARACELY CHOWDARY, PT Service: Physical Therapy Author Type: Physical Therapist Type: Therapy (PT/OT/Speech/Resp) Filed: 08/08/2024 09:57 Note Text: Physical Therapy Evaluation Summary SERVICE DATE: 08/08/2024 SERVICE TIME: 0837 to 0901 ROOM: [place] [address] PT 6 Clicks Score: 13 DISCHARGE RECOMMENDATIONS [facility] Recommended Discharge Disposition Comments: with continued therapies [...] COURSE Patient admitted following unwitnessed fall at [facility], with imaging negative for fracture but finding of left UVJ stone. Also with UTI/sepsis. Relevant Past Medical History: CAD, HTN,OA, urge incontinence, h/o DVT/PE; Dementia-Ox1 baseline. HOME LIVING Patient Lives With: Facility Care ([facility]/memory care; [facility] Assistance Available: 24-Hour (staff and spouse) Entry To Home: No Stairs Tub/Shower Type: walk in with seat/bars ; staff assists Laundry: Provided for patient Equipment Owned: Walker- Wheeled, Wheelchair- Manual PRIOR FUNCTIONAL LEVEL Required Assistance Assistance Required With: Ambulation, Cleaning, Laundry, Meals, Medication Management, Safety, Self Care, Shopping, Transportation Patient resides in memory care unit at [facility]. Generally ambulates without device, or with wheeled [...] Weakness (generalized) TREATMENT INTERVENTIONS Evaluation, Therapeutic Activity (57678) $ Evaluation-Moderate (67222) Billed Units: 1 unit Therapeutic Activity (49837) Treatment Minutes: 9 $ Therapeutic Activity (80334) Billed Units: 1 unit Education regarding importance [...] August 08, 2024 TIME: 9:55 AM Normal [facility] Basic metabolic 2000 panelon 08-07-2024 Anion gap [Moles/Vol] 8 mmol/L Normal 8-15 [facility] Comment on above: Order Comment: Speci men Type: BLOOD SPECIMEN Ordering Facility: [facility] Address: [address] [place] [address] Performed By: #### 3 2693-4 #### [facility] CLIA [id number] 1 [place] [address] [place] Calcium [Mass/Vol] 8.5 mg/dL Normal 8.5-10.2 [facility] Comment on above: Order Comment: Speci men Type: BLOOD SPECIMEN Ordering Facility: [facility] Address: [address] [place] [address] Performed By: #### 3 2693-4 #### [facility] CLIA [id number] 1 [place] [address] [place] Chloride [Moles/Vol] 101 mmol/L Normal 98-107 [facility] Comment on above: Order Comment: Speci men Type: BLOOD SPECIMEN Ordering Facility: [facility] Address: [address] [place] [address] Performed By: #### 3 2693-4 #### [facility] CLIA [id number] 1 [place] [address] [place] CO2 [Moles/Vol] 27 mmol/L Normal 22-30 [facility] Comment on above: Order Comment: Speci men Type: BLOOD SPECIMEN Ordering Facility: [facility] Address: [address] [place] [address] Performed By: #### 3 2693-4 #### [facility] CLIA [id number] [address] [place] Creatinine [Mass/Vol] 0.80 mg/dL Normal 0.58-0.96 [facility] Comment on above: Order Comment: Alex ruffin Type: BLOOD SPECIMEN Ordering Facility: [facility] Address: [address] [place] [address] Performed By: #### 3 2693-4 #### [facility] CLIA [id number] [address] Creatinine and Glomerular filtration rate.predicted panel (S/P/Bld) 73 mL/min/1.73m??? Normal >=60 [facility] Comment on above: Order Comment: Alex ruffin Type: BLOOD SPECIMEN Ordering Facility: [facility] Address: [address] [place] [address] Result Comment: Ashli mated Glomerular Filtration Rate [...] GFR. Performed By: #### 3 2693-4 #### [facility] CLIA [id number] [address] STATES OF [facility] Glucose [Mass/Vol] 153 mg/dL High 74-99 [facility] Comment on above: Order Comment: Alex ruffin Type: BLOOD SPECIMEN Ordering Facility: [facility] Address: [address] [place] [address] Result Comment: The [place] [employer] (ADA) provides guidance for cutoff [...] Standards of Medical Care in Diabetes 2016, [place] [employer]. Diabetes Care. 2016.39(Suppl 1). Performed By: #### 3 2693-4 #### [facility] CLIA [id number] [address] Potassium [Moles/Vol] 3.8 mmol/L Normal 3.7-5.1 [facility] Comment on above: Order Comment: Speci men Type: BLOOD SPECIMEN Ordering Facility: [facility] Address: [address] [place] [address] Performed By: #### 3 2693-4 #### [facility] CLIA [id number] [address] Sodium [Moles/Vol] 136 mmol/L Normal 136-144 [facility] Comment on above: Order Comment: Speci men Type: BLOOD SPECIMEN Ordering Facility: [facility] Address: [address] [place] [address] Performed By: #### 3 2693-4 #### [facility] CLIA [id number] [address] Urea nitrogen [Mass/Vol] 16 mg/dL Normal 7-21 [facility] Comment on above: Order Comment: Speci men Type: BLOOD SPECIMEN Ordering Facility: [facility] Address: [address] [place] [address] Performed By: #### 3 2693-4 #### [facility] CLIA [id number] [address] CBC panel Auto (Bld)on 08-07 Erythrocyte distribution width (RBC) [Ratio] 12.3 % Normal 11.5-15.0 [facility] Comment on above: Order Comment: Speci men Type: BLOOD SPECIMEN Ordering Facility: [facility] Address: [address] [place] [address] Performed By: #### 3 2693-4 #### [facility] CLIA [id number] [address] [place] [address] [place] Hematocrit (Bld) [Volume fraction] 30.1 % Low 36.0-46.0 [facility] Comment on above: Order Comment: Speci men Type: BLOOD SPECIMEN Ordering Facility: [facility] Address: [address] [place] [address] Performed By: #### 3 2693-4 #### [facility] CLIA [id number] [address] Hemoglobin (Bld) [Mass/Vol] 9.8 g/dL Low 11.5-15.5 [facility] Comment on above: Order Comment: Speci men Type: BLOOD SPECIMEN Ordering Facility: [facility] Address: [address] [place] [address] Performed By: #### 3 2693-4 #### [facility] CLIA [id number] [address] MCH (RBC) [Entitic mass] 30.4 pg Normal 26.0-34.0 [facility] Comment on above: Order Comment: Speci men Type: BLOOD SPECIMEN Ordering Facility: [facility] Address: [address] [place] [address] Performed By: #### 3 2693-4 #### [facility] CLIA [id number] [address] MCHC (RBC) [Mass/Vol] 32.6 g/dL Normal 30.5-36.0 [facility] Comment on above: Order Comment: Speci men Type: BLOOD SPECIMEN Ordering Facility: [facility] Address: [address] [place] [address] Performed By: #### 3 2693-4 #### [facility] CLIA [id number] [address] MCV (RBC) [Entitic vol] 93.5 fL Normal 80.0-100.0 [facility] Comment on above: Order Comment: Speci men Type: BLOOD SPECIMEN Ordering Facility: [facility] Address: [address] [place] [address] Performed By: #### 3 2693-4 #### [facility] CLIA [id number] [address] [place] Nucleated RBC (Bld) [#/Vol] 10*3/uL Normal <0.01 [facility] Comment on above: Order Comment: Speci men Type: BLOOD SPECIMEN Ordering Facility: [facility] Address: [address] [place] [address] Performed By: #### 3 2693-4 #### [facility] CLIA [id number] [address] [place] Platelet mean volume (Bld) [Entitic vol] 10.7 fL Normal 9.0-12.7 [facility] Comment on above: Order Comment: Speci men Type: BLOOD SPECIMEN Ordering Facility: [facility] Address: [address] [place] [address] Performed By: #### 3 2693-4 #### [facility] CLIA [id number] [address] Platelets (Bld) [#/Vol] 196 10*3/uL Normal 150-400 [facility] Comment on above: Order Comment: Speci men Type: BLOOD SPECIMEN Ordering Facility: [facility] Address: [address] [place] [address] Performed By: #### 3 2693-4 #### [facility] CLIA [id number] [address] [place] RBC (Bld) [#/Vol] 3.22 10*6/uL Low 3.90-5.20 [facility] Comment on above: Order Comment: Speci men Type: BLOOD SPECIMEN Ordering Facility: [facility] Address: [address] [place] [address] Performed By: #### 3 2693-4 #### [facility] CLIA [id number] [address] [place] WBC (Bld) [#/Vol] 12.56 10*3/uL High 3.70-11.00 [facility] Comment on above: Order Comment: Speci men Type: BLOOD SPECIMEN Ordering Facility: [facility] Address: [address] [place] [address] Performed By: #### 3 2693-4 #### [facility] CLIA [id number] 1 [place] [address] [place] Lactate (Bld) [Moles/Vol]on 08-07-2024 Lactate [Moles/Vol] 1.0 mmol/L Normal 0.5-2.2 [facility] Comment on above: Order Comment: Speci men Type: BLOOD SPECIMEN Ordering Facility: [facility] Address: [address] [place] [address] Performed By: #### 3 2693-4 #### [facility] CLIA [id number] [address] [place] Magnesium SerPl-mCncon 08-07 Magnesium [Mass/Vol] 1.4 mg/dL Low 1.7-2.3 [facility] Comment on above: Order Comment: Speci men Type: BLOOD SPECIMEN Ordering Facility: [facility] Address: [address] [place] [address] Performed By: #### 3 2693-4 #### [facility] CLIA [id number] [address] [place] THERAPY NTon 08-07-2024 THERAPY NT HNO ID: [id number] Author: DEVIN WALLACE OT/L Service: Occupational Therapy Author Type: Occupational Therapist Type: Therapy (PT/OT/Speech/Resp) Filed: 08/07/2024 15:01 Note Text: Occupational Therapy Evaluation Summary SERVICE DATE: 08/07/2024 SERVICE TIME: 1214 to 1246 ROOM: [id number] 6 Clicks Score: 13 DISCHARGE RECOMMENDATIONS [...] continued therapy post acutely. Recommend return to [facility] to familiar memory care, [facility] unit for safety with therapy to progress ADL, mobility and cognitive/safety awareness in own home setting for best follow through. PRECAUTIONS Fall Risk, Lines/Tubes/Drains IV, external catheter CURRENT HOSPITAL COURSE Patient admitte following unwitnessed fall at [facility], with imaging negative for fracture but finding of left UVJ stone. Also with UTI/sepsis. Relevant Past Medical History: CAD, HTN,OA, urge incontinence, h/o DVT/PE; Dementia-Ox1 baseline. HOME LIVING Patient Lives With: Facility Care ([facility] care; [facility]) Assistance Available: 24-Hour (staff and spouse) Entry To Home: No Stairs Tub/Shower Type: walk in with seat/bars ; staff assists Laundry: Provided for patient Equipment Owned: Walker- Wheeled, Wheelchair- Manual PRIOR FUNCTIONAL LEVEL Required Assistance Assistance Required With: Ambulation, Cleaning, Laundry, Meals, Medication Management, Safety, Self Care, Shopping, Transportation Patient resides in memory care unit at [facility]. Generally ambulates without device, or with wheeled [...] Follow Commands: Moderate Memory Deficits: Short Term, Care Home, Recall of Medical/Personal History, Recall of Recent Events Executive Function Deficits: Sequencing, Judgement, Insight to Deficits, Problem Solving, Safety Awareness THERAPY DIAGNOSIS Reduced mobility-other, Decreased activities of daily living (ADL), Muscle Weakness (generalized), Unsteadiness on feet, Signs and Symptoms Involving Cognitive Functions and Awareness, Lack of coordination-other TREATMENT INTERVENTIONS Evaluation, Self Fpc Management (95087) Timed Code Treatment (minutes): 17 Skilled Treatment Time (minutes): 32 $ Evaluation - Moderate (70464) Billed Units: 1 unit Self Fpc Management (65987) Treatment Minutes: 17 $ Self Fpc Management (81173) Billed Units: 1 unit TRAINING AND EDUCATION PROVIDED Activity Adaptation/Compensatory Strategies, Bed Mobility, Benefits of In-Hospital Mobility, Command Following, Cognitive Stimulation Activities, Discharge Planning, Feeding Tasks, Grooming Tasks, Functional Mobility Involving ADLs, Insight into Deficits, Orientation, Memory/Attention, Patient Exercise/Therapy Program Support Needs, Precautions/Restrictions, Role of Occupational Therapy, Safety/Judgment, Sitting Balance to Improve [place] with ADLs/Self-Care, Standing Balance to Improve [place] with ADLs/Self-Care, Transfer - Sit to Stand [...] Level Additional Informa (more content not included)... 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 Family is requesting spiritual care services. Met with PT and the daughter was at the bedside. They would like anointing from a psychologist developmental. A note was left in their inner mailbox. Read sacred text, sacred prayers, and prayed. To contact the Spiritual Care Department: Please call [phone]. SIGNATURE: Chaplain Allen PATIENT NAME: Cj Gillis DATE: August 06, 2024 TIME: 5:57 PM PAGER/CONTACT #: [phone] [facility] HNO ID: [id number] Author: DILMA MANCERA CT Service: Radiology Author Type: Technologist Type: Allied Health Filed: 08/06/2024 09:29 Note Text: Radiology Service [...] PATIENT PRESENTS WITH AN IMPLANTABLE OR ATTACHED OBSTETRIC ANAESTHETIST: No RADIOLOGY DEPARTMENT: CT; Exam(s) Completed: Abdomen/Pelvis , Brain , and Spine PERIPHERAL IV DATA: Not applicable SIGNED BY: CELSO Cruz August 06, 2024 9:28 AM [facility] ANES PRE-OPon 08-06-2024 ANES PRE-OP HNO ID: [id number] Author: DEMARIO NICHOLSON MD Service: Anesthesiology Author Type: Physician Type: Anesthesia Preprocedure Evaluation Filed: 08/06/2024 18:38 Note Text: ANESTHESIOLOGY DAY OF SURGERY NOTE : 1940 Procedure Information Anesthesia Start Date/Time: 08/06/24 1834 Procedure: CYSTOSCOPY, INSERTION STENT URETERAL J (Left: Abdomen) Location: [place] OR 18 / [place] OR Surgeons: Rey Rowan MD Estimated body mass index is 19.05 kg/m? as calculated from the following: Height as of 12/16/19: 162.6 cm (5' 4"). Weight as of this encounter: 50.3 kg [...] tryptase level (more content not included)... Normal [facility] Bacteria Bld Culton 08-07-19 25 Bacteria identified Cx Nom (Bld) CULTURE, BLOOD: No growth 5 days Normal [facility] Comment on above: Performed By: #### 6 00-7 ####[facility] [id number] [place] [address] [place] Bacteria Ur Culton 5 Bacteria identified Cx Nom (U) CULTURE, URINE: No growth (<1,000 CFU/ml) Normal [facility] Comment on above: Performed By: #### 2 4356-8 ####[facility] [id number] [address]#### 630-4 ####[facility] [id number] [address] [place] CBC W Auto Differential pane l (Bld)on 08-06-2024 Basophils (Bld) [#/Vol] 0.07 10*3/uL Normal <0.11 [facility] Comment on above: Order Comment: Speci men Type: BLOOD SPECIMENOrdering Facility: [facility] Address: [address] [place] [address] Performed By: #### 5 7021-8 ####[facility] [id number] [address] [place] [facility] Basophils/100 WBC (Bld) 0.4 % Normal [facility] Comment on above: Order Comment: Speci men Type: BLOOD SPECIMENOrdering Facility: [facility] Address: [address] [place] [address] Performed By: #### 5 7021-8 ####[facility] [id number] [address] [place] [facility] Differential cell count method Nom (Bld) Auto Normal [facility] Comment on above: Order Comment: Speci men Type: BLOOD SPECIMENOrdering Facility: [facility] Address: [address] [place] [address] Performed By: #### 5 7021-8 ####[facility] [id number] [place] [address] [place] Eosinophils (Bld) [#/Vol] 0.04 10*3/uL Normal <0.46 [facility] Comment on above: Order Comment: Speci men Type: BLOOD SPECIMENOrdering Facility: [facility] Address: [address] [place] [address] Performed By: #### 5 7021-8 ####[facility]ORYCLIA [id number] [address] [place] Eosinophils/100 WBC (Bld) 0.2 % Normal [facility] Comment on above: Order Comment: Speci men Type: BLOOD SPECIMENOrdering Facility: [facility] Address: [address] [place] [address] Performed By: #### 5 7021-8 ####[facility]ORYCLIA [id number] [address] [place] Erythrocyte distribution width (RBC) [Ratio] 12.4 % Normal 11.5-15.0 [facility] Comment on above: Order Comment: Speci men Type: BLOOD SPECIMENOrdering Facility: [facility] Address: [address] [place] [address] Performed By: #### 5 7021-8 ####[facility]ORY[facility]IA [id number] [address] Hematocrit (Bld) [Volume fraction] 38.4 % Normal 36.0-46.0 [facility] Comment on above: Order Comment: Speci men Type: BLOOD SPECIMENOrdering Facility: [facility] Address: [address] [place] [address] Performed By: #### 5 7021-8 ####[facility]ORYCLIA [id number] [address] [place] Hemoglobin (Bld) [Mass/Vol] 12.4 g/dL Normal 11.5-15.5 [facility] Comment on above: Order Comment: Speci men Type: BLOOD SPECIMENOrdering Facility: [facility] Address: [address] [place] [address] Performed By: #### 5 7021-8 ####[facility]ORYCLIA [id number] [address] [place] Immature granulocytes (Bld) [#/Vol] 0.12 10*3/uL High <0.10 [facility] Comment on above: Order Comment: Speci men Type: BLOOD SPECIMENOrdering Facility: [facility] Address: [address] [place] [address] Performed By: #### 5 7021-8 ####[facility]ORYCLIA [id number] [address] Immature granulocytes/100 WBC (Bld) 0.7 % Normal [facility] Comment on above: Order Comment: Speci men Type: BLOOD SPECIMENOrdering Facility: [facility] Address: [address] [place] [address] Performed By: #### 5 7021-8 ####[facility]ORYCLIA [id number] [address] Lymphocytes (Bld) [#/Vol] 0.87 10*3/uL Low 1.00-4.00 [facility] Comment on above: Order Comment: Speci men Type: BLOOD SPECIMENOrdering Facility: [facility] Address: [address] [place] [address] Performed By: #### 5 7021-8 ####[facility]ORYCLIA [id number] [address] Lymphocytes/100 WBC (Bld) 5.0 % Normal [facility] Comment on above: Order Comment: Speci men Type: BLOOD SPECIMENOrdering Facility: [facility] Address: [address] [place] [address] Performed By: #### 5 7021-8 ####[facility]ORYCLIA [id number] [address] MCH (RBC) [Entitic mass] 29.7 pg Normal 26.0-34.0 [facility] Comment on above: Order Comment: Speci men Type: BLOOD SPECIMENOrdering Facility: [facility] Address: [address] [place] [address] Performed By: #### 5 7021-8 ####[facility]ORYCLIA [id number] [address] [place] MCHC (RBC) [Mass/Vol] 32.3 g/dL Normal 30.5-36.0 [facility] Comment on above: Order Comment: Speci men Type: BLOOD SPECIMENOrdering Facility: [facility] Address: [address] [place] [address] Performed By: #### 5 7021-8 ####[facility]ATORYCLIA [id number] [place] [address] [place] MCV (RBC) [Entitic vol] 92.1 fL Normal 80.0-100.0 [facility] Comment on above: Order Comment: Speci men Type: BLOOD SPECIMENOrdering Facility: [facility] Address: [address] [place] [address] Performed By: #### 5 7021-8 ####[facility]ATORYCLIA [id number] [place] [address] [place] Monocytes (Bld) [#/Vol] 1.33 10*3/uL High <0.87 [facility] Comment on above: Order Comment: Speci men Type: BLOOD SPECIMENOrdering Facility: [facility] Address: [address] [place] [address] Performed By: #### 5 7021-8 ####[facility]ATORYCLIA [id number] [address] [facility] Monocytes/100 WBC (Bld) 7.7 % Normal [facility] Comment on above: Order Comment: Speci men Type: BLOOD SPECIMENOrdering Facility: [facility] Address: [address] [place] [address] Performed By: #### 5 7021-8 ####[facility]ATORYCLIA [id number] [place] [address] [place] Neutrophils (Bld) [#/Vol] 14.88 10*3/uL High 1.45-7.50 [facility] Comment on above: Order Comment: Speci men Type: BLOOD SPECIMENOrdering Facility: [facility] Address: [address] [place] [address] Performed By: #### 5 7021-8 ####[facility]ORATORYCLIA [id number] [place] [address] [place] Neutrophils/100 WBC (Bld) 86.0 % Normal [facility] Comment on above: Order Comment: Speci men Type: BLOOD SPECIMENOrdering Facility: [facility] Address: [address] [place] [address] Performed By: #### 5 7021-8 ####[facility]ORATORYCLIA [id number] [place] [address] [place] Nucleated RBC (Bld) [#/Vol] 10*3/uL Normal <0.01 [facility] Comment on above: Order Comment: Speci men Type: BLOOD SPECIMENOrdering Facility: [facility] Address: [address] [place] [address] Performed By: #### 5 7021-8 ####[facility]ORATORYCLIA [id number] [address] [place] Nucleated RBC/100 WBC (Bld) [Ratio] 0.0 /100 WBC Normal [facility] Comment on above: Order Comment: Speci men Type: BLOOD SPECIMENOrdering Facility: [facility] Address: [address] [place] [address] Performed By: #### 5 7021-8 ####[facility]ATORYCLIA [id number] [address] [place] Platelet mean volume (Bld) [Entitic vol] 10.6 fL Normal 9.0-12.7 [facility] Comment on above: Order Comment: Speci men Type: BLOOD SPECIMENOrdering Facility: [facility] Address: [address] [place] [address] Performed By: #### 5 7021-8 ####[facility]ATORYCLIA [id number] [place] [address] [place] Platelets (Bld) [#/Vol] 275 10*3/uL Normal 150-400 [facility] Comment on above: Order Comment: Speci men Type: BLOOD SPECIMENOrdering Facility: [facility] Address: [address] [place] [address] Performed By: #### 5 7021-8 ####[facility]ORATORYCLIA [id number] [place] [address] [facility] RBC (Bld) [#/Vol] 4.17 10*6/uL Normal 3.90-5.20 [facility] Comment on above: Order Comment: Speci men Type: BLOOD SPECIMENOrdering Facility: [facility] Address: [address] [place] [id number] Performed By: #### 5 7021-8 ####[facility]ORATORYCLIA [id number] [place] [id number] [facility] WBC (Bld) [#/Vol] 17.31 10*3/uL High 3.70-11.00 [facility] Comment on above: Order Comment: Speci men Type: BLOOD SPECIMENOrdering Facility: [facility] Address: [address] [place], [place] [address] Performed By: #### 5 7021-8 ####PIMENTEL LABORATORYCLIA [id number] [place] [id number] [facility] CONSULTon 08-06-2024 CONSULT HNO ID: [id number] Author: REY ROWAN MD Service: Urology Author Type: Resident Type: Consults Filed: 08/06/2024 18:31 Note Text: Attestation signed by Rey Rowan MD at 08/06/2024 6:31 PM [facility] STAFF PHYSICIAN NOTE OF PERSONAL [...] in the resident's note. Rey Rowan MD [facility] Urology Urology Consult 08/06/2024 HISTORY OF PRESENT [...] was discussed with the patient or authorized quality control representative. The patient or authorized quality control representative has agreed to proceed with the [...] Value 08/06 (more content not included)... Normal [facility] CT ABD/PEL WO IVCONon 2024 CT ABD/PEL WO IVCON * * *Final Report* * * DATE OF EXAM: Aug 06 2024 9:33AM [facility] 0531 - CT ABD/PEL WO IVCON / [...] left UVJ. Questionable punctate left renal stone. Assistant At Surgery: PSCB Transcribe Date/Time: Aug 06 2024 10:11A Dictated by : KELLY CURRIE MD This examination was interpreted and the report reviewed and electronically signed by: KELLY CURRIE MD on Aug 06 2024 10:18AM EST [id number] [facility] CT BRAIN WO IVCONon 08-07-19 CT BRAIN WO IVCON * * *Final Report* * * DATE OF EXAM: Aug 06 2024 9:33AM [facility] 0504 - CT BRAIN WO IVCON / [...] acute intracranial hemorrhage identified. White matter changes. Assistant At Surgery: JAYDA Transcribe Date/Time: Aug 06 2024 9:52A Dictated by : CARLOS EDUARDO HERRERA MD This examination was interpreted and the report reviewed and electronically signed by: CARLOS EDUARDO HERRERA MD on Aug 06 2024 9:59AM EST [id number] [facility] CT CERVICAL SPINE WO IVCONon 08-06-2024 CT CERVICAL SPINE WO IVCON * * *Final Report* * * DATE OF EXAM: Aug 06 2024 9:33AM [facility] 0505 - CT CERVICAL SPINE WO IVCON [...] Counting reference: Craniocervical junction. Anatomic Variants: None. Renewals Specialist (topogram) images: No additional findings. Alignment: There [...] degenerative changes with multilevel disc space narrowing. Assistant At Surgery: [facility] Transcribe Date/Time: Aug 06 2024 10:00A Dictated by : CARLOS EDUARDO HERRERA MD This examination was interpreted and the report reviewed and electronically signed by: CARLOS EDUARDO HERRERA MD on Aug 06 2024 10:13AM EST [id number] Normal [facility] Comprehensive metabolic 2000 panelon 08-06-2024 Albumin [Mass/Vol] 3.8 g/dL Low 3.9-4.9 [facility] Comment on above: Order Comment: Alex ruffin Type: BLOOD SPECIMENOrdering Facility: [facility] Address: [address] [place] [address] Performed By: #### 3 3762-6, 77475-4, , [id number] ####CHANDLER LABORATORYCLIA [id number] [place] [address] [place] ALP [Catalytic activity/Vol] 99 U/L Normal 34-123 [facility] Comment on above: Order Comment: Alex ruffin Type: BLOOD SPECIMENOrdering Facility: [facility] Address: [address] [place] [address] Performed By: #### 3 3762-6, 50530-7, 79951-4, [id number] ####PIMENTEL LABORATORYCLIA [id number] [place] [address] [place] ALT [Catalytic activity/Vol] 7 U/L Normal 7-38 [facility] Comment on above: Order Comment: Speci men Type: BLOOD SPECIMENOrdering Facility: [facility] Address: [address] [place] [address] Performed By: #### 3 3762-6, 53387-9, , [id number] ####PIMENTEL LABORATORYCLIA [id number] [place] [address] [place] Anion gap [Moles/Vol] 14 mmol/L Normal 8-15 [facility] Comment on above: Order Comment: Speci men Type: BLOOD SPECIMENOrdering Facility: [facility] Address: [address] [place] [address] Performed By: #### 3 3762-6, 67034-8, , [id number] ####CHANDLER LABORATORYCLIA [id number] [place] [address] [place] AST [Catalytic activity/Vol] 11 U/L Low 13-35 [facility] Comment on above: Order Comment: Speci men Type: BLOOD SPECIMENOrdering Facility: [facility] Address: [address] [place] [address] Performed By: #### 3 3762-6, 22404-3, , [id number] ####PIMENTEL LABORATORYCLIA [id number] [place] [address] [place] Bilirubin [Mass/Vol] 0.5 mg/dL Normal 0.2-1.3 [facility] Comment on above: Order Comment: Speci men Type: BLOOD SPECIMENOrdering Facility: [facility] Address: [address] [place] [address] Performed By: #### 3 3762-6, 47969-5, 41292-4, [id number] ####PIMENTEL LABORATORYCLIA [id number] [place] [address] [place] Calcium [Mass/Vol] 9.7 mg/dL Normal 8.5-10.2 [facility] Comment on above: Order Comment: Speci men Type: BLOOD SPECIMENOrdering Facility: [facility] Address: [address] [place] [address] Performed By: #### 3 3762-6, 39159-7, 51549-7, [id number] ####PIMENTEL LABORATORYCLIA [id number] [place] [address] [place] Chloride [Moles/Vol] 98 mmol/L Normal 98-107 [facility] Comment on above: Order Comment: Speci men Type: BLOOD SPECIMENOrdering Facility: [facility] Address: [address] [place] [address] Performed By: #### 3 3762-6, 13368-4, , [id number] ####PIMENTEL LABORATORYCLIA [id number] [place] [address] [place] CO2 [Moles/Vol] 24 mmol/L Normal 22-30 [facility] Comment on above: Order Comment: Speci men Type: BLOOD SPECIMENOrdering Facility: [facility] Address: [address] [place] [address] Performed By: #### 3 3762-6, 78673-5, , [id number] ####PIMENTEL LABORATORYCLIA [id number] [place] [address] [place] Creatinine [Mass/Vol] 0.89 mg/dL Normal 0.58-0.96 [facility] Comment on above: Order Comment: Speci men Type: BLOOD SPECIMENOrdering Facility: [facility] Address: [address] [place] [address] Performed By: #### 3 3762-6, 54517-4, 16265-6, [id number] ####PIMENTEL LABORATORYCLIA [id number] [place] [id number] [facility] [place] Creatinine and Glomerular filtration rate.predicted panel (S/P/Bld) 64 mL/min/1.73m??? Normal >=60 [facility] Comment on above: Order Comment: Speci men Type: BLOOD SPECIMENOrdering Facility: [facility] Address: [address] [place], [place] [address] Result Comment: Ashli mated Glomerular Filtration Rate [...] actual GFR. Performed By: #### 3 3762-6, 81394-3, 06366-9, [id number] ####CHANDLER LABORATORYCLIA [id number] [place] [id number] [place] Glucose [Mass/Vol] 235 mg/dL High 74-99 [facility] Comment on above: Order Comment: Alex ruffin Type: BLOOD SPECIMENOrdering Facility: [facility] Address: [address] [place] [address] Result Comment: The [place] [employer] (ADA) provides guidance for cutoff [...] Standards of Medical Care in Diabetes 2016, [place] [employer]. Diabetes Care. 2016.39(Suppl 1). Performed By: #### 3 3762-6, 70018-6, 13646-0, [id number] ####CHANDLER LABORATORYCLIA [id number] [place] [address] [place] Potassium [Moles/Vol] 4.4 mmol/L Normal 3.7-5.1 [facility] Comment on above: Order Comment: Alex ruffin Type: BLOOD SPECIMENOrdering Facility: [facility] Address: [address] [place] [address] Performed By: #### 3 3762-6, 67000-3, 14183-6, [id number] ####CHANDLER LABORATORYCLIA [id number] [address] STATES OF [facility] Protein [Mass/Vol] 7.8 g/dL Normal 6.3-8.0 [facility] Comment on above: Order Comment: Speci men Type: BLOOD SPECIMENOrdering Facility: [facility] Address: [address] [place] [address] Performed By: #### 3 3762-6, 05251-0, 68874-5, [id number] ####PIMENTEL LABORATORYCLIA [id number] [address] Sodium [Moles/Vol] 136 mmol/L Normal 136-144 [facility] Comment on above: Order Comment: Speci men Type: BLOOD SPECIMENOrdering Facility: [facility] Address: [address] [place] [address] Performed By: #### 3 3762-6, 35502-1, 50608-6, [id number] ####CHANDLER LABORATORYCLIA [id number] [address] OF [facility] Urea nitrogen [Mass/Vol] 27 mg/dL High 7-21 [facility] Comment on above: Order Comment: Speci men Type: BLOOD SPECIMENOrdering Facility: [facility] Address: [address] [place] [address] Performed By: #### 3 3762-6, 06080-2, 14260-8, [id number] ####PIMENTEL LABORATORYCLIA [id number] [address] [place] ECG COMPLETEon 08-06-2024 ECG COMPLETE Ventricular Rate : 1 07 BPM Atrial Rate : 107 BPM P-R Interval : 130 ms QRS Duration : 132 ms Q-T Interval : 378 ms QTC Calculation(Bazett) : 504 ms Calculated P Sipsey : 69 degrees Calculated R Sipsey : 60 degrees Calculated T Sipsey : 191 degrees SINUS TACHYCARDIA LEFT BUNDLE BRANCH BLOCK ABNORMAL ECG NO PREVIOUS ECGS AVAILABLE Confirmed by MD PEDRAZA CAROL ([id number]) on 08/06/2024 6:00:47 PM NAME : CJ GILLIS PID : [id number] : 1940 Gender : Female Race : ORD : [id number] Procedure Date : Aug 06 2024 17:55:25 Edit Date : Aug 06 2024 18:00:51 Diagnosis: SINUS TACHYCARDIA LEFT BUNDLE BRANCH BLOCK ABNORMAL ECG NO PREVIOUS ECGS AVAILABLE Confirmed by MD PEDRAZA CAROL ([id number]) on 08/06/2024 6:00:47 PM Test Reason : Chest Pain Location : 4 : AKED EM Overread By : MD PEDRAZA CAROL Edited By : MD PEDRAZA CAROL Referred By : , Acquired by : MARK BENNETT [facility] ED NOTEon 08-06-2024 ED NOTE HNO ID: [id number] Author: JOSE JESUS, INDIRA Service: Nursing Author Type: Registered Nurse Type: ED Notes Filed: 08/06/2024 18:28 Note Text: Surgcial residents at bedside. Transporting patient to OR [facility] ED NOTE HNO ID: [id number] Author: JOSE JESUS RN Service: Nursing Author Type: Registered Nurse Type: ED Notes Filed: 08/06/2024 18:16 Note Text: Patient scheduled for transport to OR per presurgery dept. [facility] ED NOTE HNO ID: [id number] Author: SHERIN JIMENEZ RN Service: ? Author Type: Registered Nurse Type: ED Notes Filed: 08/06/2024 15:53 Note Text: Bed: 17-ED Expected date: Expected time: Means of arrival: Comments: squad [facility] ED NOTE HNO ID: [id number] Author: JET PETERS RN Service: Nursing Author Type: Registered Nurse Type: ED Notes Filed: 08/06/2024 14:59 Note Text: MMT are at the bedside to transport pt down to [facility]. Report was given to the transfer team who assumed care at this time. Belongings were transported with the pt. [facility] ED NOTE HNO ID: [id number] Author: GARETH FOSS RN Service: ? Author Type: Registered Nurse Type: ED Notes Filed: 08/06/2024 08:31 Note Text: Patient brought to ED by EMS. Patient had unwitnessed fall, c/o right hip and shoulder pain [facility] ED NOTE HNO ID: [id number] Author: GARETH FOSS RN Service: ? Author Type: Registered Nurse Type: ED Notes Filed: 08/06/2024 08:26 Note Text: Bed: ED-11 Expected date: 08/06/24 Expected time: 8:06 AM Means of arrival: [place] [facility]/EMS Comments: 84 yo female, unwitnessed fall, right hip pain Normal [facility] ED PROV NOTEon 08-06-2024 ED PROV NOTE HNO ID: [id number] Author: JOHN MONTES DE OCA MD Service: [...] emergency department today as a transfer from [facility] for urology consultation. Patient had an [...] JOHN MONTES DE OCA 08/06/24 1648 Normal [facility] ED PROV NOTE HNO ID: [id number] Author: JOHN MONTES DE OCA MD Service: [...] presents with: Fall: Presents to ED from [facility] for consult. Pt s/p fall with incidental findings of urolithiasis AND urology consult. Pt unable to participate in triage process, only responding to name. A/o x1 upon arrival HPI 84-year-old female presents emerged department as a functional transfer from [facility] for mildly obstructing 5 mm left [...] ground for long. Evaluated initially at the [facility] ER and incidentally found positive [...] Nose normal. (more content not included)... Normal [facility] ED PROV NOTE HNO ID: [id number] Author: INOCENTE SPANGLER MD Service: Emergency Medicine [...] THROMB/EMBOLISM 02/04/2003 - Pulmonary embolism (HCC) late around the time of foot surgery - Rheumatic fever - TB (tuberculosis) 04/28/2009 Age 17-18 - Type II or unspecified type diabetes mellitus without mention of complication, not stated as uncontrolled - Unspecified essential hypertension - Unspecified pulmonary tuberculosis, confirmation unspecified h/o TB PAST SURGICAL HISTORY Procedure Laterality Date - ANTERIOR COLPORRAPHY RPR CYSTOCELE W/CYSTO 1997 cystocele/rectocele/bladder susp - ARTHROSCOPY KNEE DIAGNOSTIC W/WO [...] obvious aph (more content not included)... Normal [facility] EKGon 08-06-2024 Electrocardiogram Ventricular Rate : 9 7 BPM Atrial Rate : 97 BPM P-R Interval : 114 ms QRS Duration : 132 ms Q-T Interval : 384 ms QTC Calculation(Bazett) : 487 ms Calculated P Sipsey : 15 degrees Calculated R Sipsey : 47 degrees Calculated T Sipsey : 141 degrees NORMAL SINUS RHYTHM LEFT BUNDLE BRANCH BLOCK ABNORMAL ECG no STEMI by Porter [place] criteria Confirmed by INOCENTE SPANGLER MD ([id number]) on 08/06/2024 9:08:38 AM NAME : CJ GILLIS PID : [id number] : 1940 Gender : Female Race : ORD : Procedure Date : Aug 06 2024 09:01:04 Edit Date : Aug 06 2024 09:08:42 Diagnosis: NORMAL SINUS RHYTHM LEFT BUNDLE BRANCH BLOCK ABNORMAL ECG no STEMI by Carlin-amy Paniaguaa criteria Confirmed by INOCENTE SPANGLER MD ([id number]) on 08/06/2024 9:08:38 AM Test Reason : Location : 1 : ER ED Overread By : INOCENTE SPANGLER MD Edited By : INOCENTE SPANGLER MD Referred By : , Acquired by : Rojelio FOSS [facility] HIGH SENSITIVITY TROPONIN T (INITIAL)on 08-06-2024 Troponin T.cardiac High sensitivity method [Mass/Vol] 14 ng/L High <12 [facility] Comment on above: Order Comment: Speci men Type: BLOOD SPECIMENOrdering Facility: [facility] Address: [address] [place] [address] Performed By: #### 3 3762-6, 07909-4, 45963-0, [id number] ####PIMENTEL LABORATORYCLIA [id number] [address] [place] HIGH SENSITIVITY TROPONIN T (SECOND)on 08-06-2024 Troponin T.cardiac High sensitivity method [Mass/Vol] 14 ng/L High <12 [facility] Comment on above: Order Comment: Speci men Type: BLOOD SPECIMENOrdering Facility: [facility] Address: [address] [place] [address] Performed By: #### L [id number] ####PIMENTEL LABORATORYCLIA [id number] [address] [place] HIGH SENSITIVITY TROPONIN T (THIRD) 3 HRS AFTER INITIALon 08-06-2024 Troponin T.cardiac High sensitivity method [Mass/Vol] 13 ng/L High <12 [facility] Comment on above: Order Comment: Speci men Type: BLOOD SPECIMENOrdering Facility: [facility] Address: [address] [place] [address] Performed By: #### L [id number] ####CHANDLER LABORATORYCLIA [id number] [place] [address] [place] HISTORY PHYSICALon HISTORY PHYSICAL HNO ID: [id number] Author: CHAPARRO NAVA MD Service: Hospital Medicine Author Type: Physician Type: H&P Filed: 08/06/2024 23:03 Note Text: DEPARTMENT OF HOSPITAL MEDICINE HISTORY AND PHYSICAL EXAM SERVICE DATE: 08/06/2024 SERVICE TIME: 6:06 PM Primary Care Physician: Carlos Herron MD NIGHT AND WEEKEND COVERAGE: [facility] COVERAGE: From 7am - 7pm, please call After 7pm, please call cross cover pager #[phone] Subjective CHIEF COMPLAINT: renal calculus and fall HPI: Patient is a 84-year-old female with a past medical history significant for type 2 diabetes mellitus, CAD, hypertension, hyperlipidemia, osteoarthritis, urge incontinence, history of prior DVT and PE not on any anticoagulation at this time, dementia with a baseline mentation of AANDO x 1 who presented to [facility] ED for renal calculus and fall. Patient is from a nursing facility. Given patient's mentation, history obtained from patient's daughter. She had an unwitnessed fall and had imaging done. Imaging negative for fracture but it did show 5 mm left UVJ stone. She was initially brought to [place] ED and was then transferred to [place]. At the nursing facility, there was some concern for UTI as well and she received 1 dose of Bactrim at nursing facility and Rocephin at outside ED. she was transferred to [facility] From outside ED so that she [...] and fax results to Dr. Sprague at [phone] DULoxetine (CYMBALTA) 30 mg capsule No No Sig: Take 1 capsule by mouth twice daily. Patient taking differently: Take 30 mg by mouth once daily. Lancets lancets No No Sig: Test Two times a day. Insulin Dep? No E11.9 DM 2 Potassium 99 mg ta (more content not included)... Normal [facility] Lactate (Bld) [Moles/Vol]on 08-06-2024 Lactate [Moles/Vol] 2.3 mmol/L High 0.5-2.2 [facility] Comment on above: Order Comment: Speci men Type: BLOOD SPECIMEN [facility] Address: [address] [place] [address] Performed By: #### 3 2693-4 #### [facility] CLIA [id number] [address] [place] [address] [place] Lactate [Moles/Vol] 2.3 mmol/L High 0.5-2.2 [facility] Comment on above: Order Comment: Speci men Type: BLOOD SPECIMEN [facility] Address: [address] [place] [address] Performed By: #### 3 2693-4 #### [facility] CLIA [id number] [address] [place] [address] [place] Magnesium SerPl-mCncon 08-06 Magnesium [Mass/Vol] 1.4 mg/dL Low 1.7-2.3 [facility] Comment on above: Order Comment: Speci men Type: BLOOD SPECIMENOrdering Facility: [facility] Address: [address] [place] [address] Performed By: #### 3 3762-6, 79968-7, 94896-8, [id number] ####CHANDLER LABORATORYCLIA [id number] [place] [address] [place] NT-proBNP [facility] 08-06 Natriuretic peptide.B prohormone N-Terminal [Mass/Vol] 1831 pg/mL High <450 [facility] Comment on above: Order Comment: Speci men Type: BLOOD SPECIMENOrdering Facility: [facility] Address: [facility]note 3[facility] [place] [address] Performed By: #### 3 3762-6, 92311-6, 34770-1, [id number] ####CHANDLER LABORATORYCLIA [id number] [place] [id number] [facility] [place] NURSING PROGon 08-06-2024 NURSING PROG HNO ID: [id number] Author: ETHAN FLORES RN Service: Nursing Author Type: Registered Nurse Type: Nursing Progress Note Filed: 08/06/2024 19:50 Note Text: Please contact Missy Rivera [phone] with any concerns or updates. Patient's is elderly as well and not present with the patient in the hospital. [facility] OPERATIVE NOon 08-06-2024 OPERATIVE NO HNO ID: [id number] Author: REY ROWAN MD Service: Urology Author Type: Physician Type: Operative Report Filed: 08/07/2024 13:54 Note Text: OPERATIVE/PROCEDURE REPORT LOG ID: [id number] SURGERY/PROCEDURE DATE: 08/06/2024 INCISION/PROCEDURE START TIME: 6:47 PM INCISION CLOSE/PROCEDURE END TIME: 6:54 PM SURGEON(S)/PROCEDURALIST(S) AND SILICA FILTER OPERATOR(S): Surgeons and Role: * Rey Rowan MD [...] was replaced and catheter removed. A 6 azerbaijani 28 cm double j ureteral stent was [...] the entire procedure. Rey Rowan MD Normal [facility] PT panel Coag (PPP)on 2024 INR Coag (PPP) [Relative time] 1.1 {INR} Normal 0.9-1.3 [facility] Comment on above: Order Comment: Speci men Type: BLOOD SPECIMENOrdering Facility: [facility] Address: [address] [place] [address] [place] [address] Result Comment: Marleni min K Antagonist (VKA) Therapeutic Range: INR 2 to 3 (Target INR of 2.5) Note: For patients treated with VKA drugs, such as warfarin, the [place] [employer] 2012 Guideline recommends [...] GH, et al. Chest 2012, 141:7S-47S Twyla RA, et al. [employer] 2017, 70: 252-289 Performed By: #### 3 4528-0, 58319-9 ####[facility] LABORATORYCLIA [id number] [place] [address] [place] PT Coag (PPP) [Time] 11.7 s Normal 9.7-13.0 [facility] Comment on above: Order Comment: Alex ruffin Type: BLOOD SPECIMENOrdering Facility: [facility] Address: [address] [place] [address] Performed By: #### 3 4528-0, 67555-2 ####[facility] LABORATORYCLIA [id number] [address] STATES OF [facility] INR Coag (PPP) [Relative time] 1.1 {INR} Normal 0.9-1.3 [facility] Comment on above: Order Comment: Alex ruffin Type: BLOOD SPECIMENOrdering Facility: [facility] Address: [address] [place] [address] Result Comment: Marleni min K Antagonist (VKA) Therapeutic Range: INR 2 to 3 (Target INR of 2.5) Note: For patients treated with VKA drugs, such as warfarin, the [place] [employer] 2012 Guideline recommends [...] GH, et al. Chest 2012, 141:7S-47S Twyla RA, et al. [employer] 2017, 70: 252-289 Performed By: #### 3 4528-0, 48688-7 ####[facility] LABORATORYCLIA [id number] [place] [address] [place] PT Coag (PPP) [Time] 12.0 s Normal 9.7-13.0 [facility] Comment on above: Order Comment: Speci men Type: BLOOD SPECIMENOrdering Facility: [facility] Address: [address] [place] [address] Performed By: #### 3 4528-0, 90049-5 ####CH[facility] LABORATORYCLIA [id number] [address] [place] Urinalysis complete panel (U )on 08-06-2024 Bacteria LM.HPF (Urine sed) [#/Area] Rare Abnormal None Seen [facility] Comment on above: Order Comment: Speci men Type: URINE SPECIMENOrdering Facility: [facility] Address: [address] [place] [address] Performed By: #### 2 4356-8 ####[facility] LABORATORYCLIA [id number] [address] [place]#### 630-4 ####[facility] LABCLIA [id number] [place] [address] [place] Bilirubin Ql (U) Negative Normal Negative [facility] Comment on above: Order Comment: Speci men Type: URINE SPECIMENOrdering Facility: [facility] Address: [address] [place] [address] Performed By: #### 2 4356-8 ####P[facility] LABORATORYCLIA [id number] [place] [address] [place]#### 630-4 ####[facility] LABCLIA [id number] [address] [address] [place] Clarity (Unsp spec) Slightly Cloudy Abnormal Clear [facility] Comment on above: Order Comment: Speci men Type: URINE SPECIMENOrdering Facility: [facility] Address: [address] [place] [address] Performed By: #### 2 4356-8 ####PIMENT[facility] LABORATORYCLIA [id number] [place] [address] [place]#### 630-4 ####[facility] LABCLIA [id number] [place] [address] [place] Color (U) Yellow Normal Yellow [facility] Comment on above: Order Comment: Speci men Type: URINE SPECIMENOrdering Facility: [facility] Address: [address] [place] [address] Performed By: #### 2 4356-8 ####[facility] LABORATORYCLIA [id number] [place] [address] [place]#### 630-4 ####[facility] LABCLIA [id number] [address] [address] [place] Glucose Test strip (U) [Mass/Vol] Negative Normal Negative [facility] Comment on above: Order Comment: Speci men Type: URINE SPECIMENOrdering Facility: [facility] Address: [address] [place], [place] [address] Performed By: #### 2 4356-8 ####PIM[facility] LABORATORYCLIA [id number] [place] [address] [place]#### 630-4 ####[facility] LABCLIA [id number] [address] [address] [place] Hemoglobin Ql (U) 1+ Abnormal Negative [facility] Comment on above: Order Comment: Speci men Type: URINE SPECIMENOrdering Facility: [facility] Address: [address] [place] [address] Performed By: #### 2 4356-8 ####PIM[facility] LABORATORYCLIA [id number] [place] [address] [place]#### 630-4 ####[facility] LABCLIA [id number] [place] [address] [place] Ketones Ql (U) Negative Normal Negative [facility] Comment on above: Order Comment: Speci men Type: URINE SPECIMENOrdering Facility: [facility] Address: [address] [place] [address] Performed By: #### 2 4356-8 ####PIM[facility] LABORATORYCLIA [id number] [place] [address] [place]#### 630-4 ####[facility] LABCLIA [id number] [place] [address] [place] Leukocyte esterase Test strip Ql (U) 3+ Abnormal Negative [facility] Comment on above: Order Comment: Speci men Type: URINE SPECIMENOrdering Facility: [facility] Address: [address] [place] [address] Performed By: #### 2 4356-8 ####PIMENT[facility] LABORATORYCLIA [id number] [place] [address] [place]#### 630-4 ####[facility] LABCLIA [id number] [place] [id number] [place] Nitrite Ql (U) Negative Normal Negative [facility] Comment on above: Order Comment: Speci men Type: URINE SPECIMENOrdering Facility: [facility] Address: [address] [place] [address] Performed By: #### 2 4356-8 ####PIMENTEL LABORATORYCLIA [id number] [place] [address] [place]#### 630-4 ####[facility] LABCLIA [id number] [place] [address] [place] pH (U) 6.0 [pH] Normal 5.0-8.0 [facility] Comment on above: Order Comment: Speci men Type: URINE SPECIMENOrdering Facility: [facility] Address: [address] [place] [address] Performed By: #### 2 4356-8 ####[facility] LABORATORYCLIA [id number] [address] [place]#### 630-4 ####[facility] LABCLIA [id number] [place] [address] [place] Protein (U) [Mass/Vol] Trace Abnormal Negative [facility] Comment on above: Order Comment: Speci men Type: URINE SPECIMENOrdering Facility: [facility] Address: [address] [place] [address] Performed By: #### 2 4356-8 ####CH[facility] LABORATORYCLIA [id number] [address] OF [place]#### 630-4 ####[facility] LABCLIA [id number] [place] [address] [place] RBC LM.HPF (Urine sed) [#/Area] 3-5 /HPF Abnormal 0-3 /HPF [facility] Comment on above: Order Comment: Speci men Type: URINE SPECIMENOrdering Facility: [facility] Address: [address] [place] [address] Performed By: #### 2 4356-8 ####PIMENT[facility] LABORATORYCLIA [id number] [address] OF [place]#### 630-4 ####[facility] LABCLIA [id number] [place] [address] [place] Specific gravity (U) [Rel density] 1.020 Normal 1.005-1.03 0 [facility] Comment on above: Order Comment: Speci men Type: URINE SPECIMENOrdering Facility: [facility] Address: [address] [place] [address] Performed By: #### 2 4356-8 ####PIMENT[facility] LABORATORYCLIA [id number] [address] [place]#### 630-4 ####[facility] LABCLIA [id number] [place] [address] [place] Urobilinogen Ql (U) 0.2 EU/dL Normal 0.2-1.0 EU/dL [facility] Comment on above: Order Comment: Speci men Type: URINE SPECIMENOrdering Facility: [facility] Address: [address] [place], [place] [address] [address] Performed By: #### 2 4356-8 ####CHANDL[facility] LABORATORYCLIA [id number] [address] [place]#### 630-4 ####[facility] LABCLIA [id number] [place] [address] [place] WBC LM.HPF (Urine sed) [#/Area] /[HPF] Abnormal 0-5 /HPF [facility] Comment on above: Order Comment: Speci men Type: URINE SPECIMENOrdering Facility: [facility] Address: [address] [place], [place] [address] [address] Performed By: #### 2 4356-8 ####CHAND[facility] LABORATORYCLIA [id number] [address] [place]#### 630-4 ####[facility] LABCLIA [id number] [place] [address] [place] XR ABDOMEN 1V SUPINEon [...] left ureter calculus seen on the CT Assistant At Surgery: [facility] Transcribe Date/Time: Aug 06 2024 5:46P Dictated by : EZEQUIEL PAYNE MD This examination was interpreted and the report reviewed and electronically signed by: EZEQUIEL PAYNE MD on Aug 06 2024 5:48PM EST [id number] [facility] XR HIP 3V PELV+ AP/LAT RTon [...] fracture or dislocation. IMPRESSION: No acute fracture. Assistant At Surgery: [facility] Transcribe Date/Time: Aug 06 2024 9:37A Dictated by : KELLY CURRIE MD This examination was interpreted and the report reviewed and electronically signed by: KELLY CURRIE MD on Aug 06 2024 9:39AM EST [id number] [facility] XR RIB/CHST 3V AP RIB/OBL/CH ST [...] IMPRESSION: No acute bony abnormality is seen. Assistant At Surgery: JAYDA Transcribe Date/Time: Aug 06 2024 9:34A Dictated by : HEATHER YUNG MD This examination was interpreted and the report reviewed and electronically signed by: HEATHER YUNG MD on Aug 06 2024 9:37AM EST [id number] [facility] XR SHLDR >/=3V AP/GHASSAN AP/OTH R [...] IMPRESSION: No acute bony abnormality is seen. Assistant At Surgery: [facility] Transcribe Date/Time: Aug 06 2024 9:34A Dictated by : HEATHER YUNG MD This examination was interpreted and the report reviewed and electronically signed by: HEATHER YUNG MD on Aug 06 2024 9:37AM EST [id number] Normal [facility] aPTT PPPon 08-06-2024 aPTT Coag (PPP) [Time] 30.2 s Normal 23.0-32.4 [facility] Comment on above: Order Comment: Speci men Type: BLOOD SPECIMENOrdering Facility: [facility] Address: [address] [place] [address] Performed By: #### 3 4528-0, 97975-1 ####[facility] LABORATORYCLIA [id number] [address] [facility] aPTT Coag (PPP) [Time] 29.8 s Normal 23.0-32.4 [facility] Comment on above: Order Comment: Speci men Type: BLOOD SPECIMENOrdering Facility: [facility] Address: [address] [place] [address] Performed By: #### 3 4528-0, 55953-2 ####[facility] LABORATORYCLIA [id number] [address] [facility] Anion gap in Serum or Plasma Ordered By: Demario Coates on 08-04-2024 Anion gap [Moles/Vol] 14 mmol/L 5-15 [facility] BUN/creatinine ratioOrdered By: Demario Coates on 08-04-2024 Urea nitrogen/Creatinine [Mass ratio] 36.6 mg/mg High 10-20 [facility] Bilirubin, totalOrdered By: Demario Coates on 08-04-2024 Bilirubin [Mass/Vol] 0.22 mg/dL 0.00-1.30 [facility] Carbon dioxide, total [Moles /volume] in Central venous bloodOrdered By: Demario Coates on 08-04-2024 CO2 [Moles/Vol] 24.3 mmol/L 21.0-32.0 [facility] Chloride assayOrdered By: Kenrick Coates on 08-04-2024 Chloride [Moles/Vol] 99 mmol/L 98-108 [facility] Erythrocyte distribution wid th ratioOrdered By: Demario Coates on 08-04-2024 Erythrocyte distribution width (RBC) [Ratio] 12.4 % 11.6-14.6 [facility] Erythrocyte distribution wid th standard deviationOrdered By: Demario Coates on 08-04-2024 Erythrocyte distribution width (RBC) [Ratio] 41.8 fl 35.1-43.9 [facility] Glomerular filtration rate ( GFR) estimation/1.73 sq m using serum, plasma, or whole bOrdered By: Demario Coates on 08-04-2024 GFR/1.73 sq M.predicted among non-blacks MDRD (S/P/Bld) [Vol rate/Area] 60 mL/min/{1.73_m2} >60 [facility] Comment on above: mL/min/1.73m2 CKD-EP I Creatinine Equation (2020) Hematocrit Auto (Bld) [Volum e fraction]Ordered By: Demario Coates on 08-04-2024 Hematocrit (Bld) [Volume fraction] 38.9 % 37-47 [facility] Hemoglobin measurementOrdere d By: Demario Coates on 08-04-2024 Hemoglobin (Bld) [Mass/Vol] 12.7 g/dL 12.0-15.0 [facility] Laboratory - Chemistry and C hemistry - challengeOrdered By: Demario Coates on 08-04-2024 AST [Catalytic activity/Vol] 19 U/L <32 [facility] MCV (mean corpuscular volume ) determinationOrdered By: Demario Coates on 08-04-2024 MCV (RBC) [Entitic vol] 92.0 fL 81-99 [facility] Mean corpuscular hemoglobin (MCH) determinationOrdered By: Demario Coates on 08-04-2024 MCH (RBC) [Entitic mass] 30.0 pg 27.0-32.0 [facility] Mean corpuscular hemoglobin concentration (MCHC) determinationOrdered By: Demario Coates on 08-04-2024 MCHC (RBC) [Mass/Vol] 32.6 g/dL 32-36 [facility] Mean platelet volume determi nationOrdered By: Demario Coates on 08-04-2024 Platelet mean volume (Bld) [Entitic vol] 10.9 fL 6.2-12.0 [facility] Platelet countOrdered By: Kenrick Coates on 08-04-2024 Platelets (Bld) [#/Vol] 360 10*3/uL 150-450 [facility] Potassium measurement (mass/ volume)Ordered By: Demario Coates on 08-04-2024 Potassium (Unsp spec) [Mass/Vol] 4.6 mmol/L 3.3-5.1 [facility] RBC Auto (Bld) [#/Vol]Ordere d By: Demario Coates on 08-04-2024 RBC (Bld) [#/Vol] 4.23 10*6/uL 4.2-5.4 [facility] Serum creatinine measurement (mass/volume)Ordered By: Demario Coates on 08-04-2024 Creatinine [Mass/Vol] 0.93 mg/dL 0.70-1.20 [facility] Serum globulin measurementOr dered By: Demario Coates on 08-04-2024 Globulin (S) [Mass/Vol] 3.4 g/dL 2.2-4.2 [facility] Serum glucose measurement (m ass/volume)Ordered By: Demario Coates on 08-04-2024 Glucose [Mass/Vol] 145 mg/dL High 70-99 [facility] Serum or plasma alanine vizcarra otransferase (ALT) measurementOrdered By: Demario Coates on 08-04-2024 ALT [Catalytic activity/Vol] 8 U/L <35 [facility] Serum or plasma albumin ramiro urement (mass/volume)Ordered By: Demario Coates on 08-04-2024 Albumin [Mass/Vol] 3.8 g/dL 3.4-4.8 [facility] Serum or plasma albumin/glob ulin mass ratioOrdered By: Demario Coates on 08-04-2024 Albumin/Globulin [Mass ratio] 1.1 {ratio} 0.9-2.4 [facility] Serum or plasma alkaline santi sphatase measurementOrdered By: Demario Coates on 08-04-2024 ALP [Catalytic activity/Vol] 85 U/L 35-104 [facility] Serum or plasma calcium ramiro urement (mass/volume)Ordered By: Demario Coates on 08-04-2024 Calcium [Mass/Vol] 9.8 mg/dL 7.6-11.0 [facility] Serum or plasma urea nitroge n measurement (mass/volume)Ordered By: Demario Coates on 08-04-2024 Urea nitrogen [Mass/Vol] 34 mg/dL High 4-19 [facility] Sodium levelOrdered By: Thomas Coates on 08-04-2024 Sodium [Moles/Vol] 137 mmol/L 133-145 [facility] Total proteinOrdered By: Colby Coates on 08-04-2024 Protein [Mass/Vol] 7.3 g/dL 5.9-8.4 [facility] White blood cell (WBC) count Ordered By: Demario Coates on 08-04-2024 WBC (Bld) [#/Vol] 11.6 10*3/uL High 4.4-11.0 [facility] Bilirubin Test strip Ql (U)O rdered By: Demario Coates on 08-03-2024 Bilirubin Ql (U) Negative Negative [facility] Ketones Test strip Ql (U)Ord ered By: Demario Coates on 08-03-2024 Ketones Ql (U) Negative Negative [facility] Microscopic analysis of urin e for red blood cells (RBC)Ordered By: Demario Coates on 08-03-2024 Microscopic analysis of urine for red blood cells (RBC) 50-100 SEEN /hpf 0-5 [facility] Mucus LM Ql (Urine sed)Order ed By: Demario Coates on 08-03-2024 Mucus Ql (Urine sed) 0 SEEN /hpf [facility] Nitrite Test strip Ql (U)Ord ered By: Demario Coates on 08-03-2024 Nitrite Ql (U) Negative Negative [facility] Protein Test strip Ql (U)Ord ered By: Demario Coates on 08-03-2024 Protein Ql (U) 30 mg/dl High Negative [facility] Squamous epithelial cells de tection in urine sediment by light microscopyOrdered By: Demario Coates on 08-03-2024 Epithelial cells.squamous LM Ql (Urine sed) 0-5 SEEN /hpf 5-10 [facility] Urine clarityOrdered By: Colby Coates on 08-03-2024 Clarity (U) Sl. Cloudy Clear [facility] Urine color determinationOrd ered By: Demario Coates on 08-03-2024 Color (U) Yellow Yellow [facility] Urine cultureOrdered By: Colby Coates on 08-03-2024 Bacteria identified Cx Nom (U) Proteus mirabilis Abnormal [facility] Urine glucose detectionOrder ed By: Demario Coates on 08-03-2024 Glucose Ql (U) Normal mg/dl Normal [facility] Urine leukocyte esterase det ection by dipstickOrdered By: Demario Coates on 08-03-2024 Leukocyte esterase Test strip Ql (U) 100 /ul High Negative [facility] Urine pHOrdered By: Demario kam on 08-03-2024 pH (U) 6.0 [pH] 5.0 - 8.0 [facility] Urine sediment bacteria coun t by microscopy (number/high power field)Ordered By: Demario Coates on 08-03-2024 Bacteria LM.HPF (Urine sed) [#/Area] 0 /[HPF] None Seen [facility] Urine specific gravity measu rementOrdered By: Demario Coates on 08-03-2024 Specific gravity (U) [Rel density] 1.020 1.002-1.03 0 [facility] Urine urobilinogen measureme ntOrdered By: Demario Coates on 08-03-2024 Urobilinogen Ql (U) Normal mg/dl Normal [facility] White blood cell countOrdere d By: Demario Coates on 08-03-2024 White blood cell count 25-50 SEEN /hpf 0-5 [facility] Hemoglobin A1c percentageOrd ered By: Demario Coates on 06-12-2024 HbA1c (Bld) [Mass fraction] 7.0 % >5.7 [facility] Vitamin D, 25-hydroxyOrdered By: Demario Coates on 06-12-2024 Vitamin D 25-Hydroxy 37.9 ng/mL 30-100 [facility] Comment on above: Vitamin D StatusDefi ciency: <20 ng/mL (50nmol/L)Insufficiency: 20-30 ng/mL (50-75 nmol/L)Sufficiency: 30-100 ng/mL (75-250 nmol/L)Toxicity: >100 ng/mL (>250 nmol/L) Albumin to globulin ratioOrd ered By: Demario Coates on 05-12-2024 Albumin/Globulin [Mass ratio] 0.8 {ratio} Low 0.9-2.4 [facility] Bilirubin, totalOrdered By: Demario Coates on 05-12-2024 Bilirubin [Mass/Vol] 0.50 mg/dL 0.20-1.00 [facility] Comment on above: For patients on eltr ombopag therapy, use of [facility] TBIL is not recommended. Blood urea nitrogen (BUN)/cr eatinine ratioOrdered By: Demario Coates on 05-12-2024 Urea nitrogen/Creatinine [Mass ratio] 17.6 mg/mg 10- [facility] Carbon dioxide measurementOr dered By: Demario Coates on 05-12-2024 CO2 [Moles/Vol] 26.0 mmol/L 21.0-32.0 [facility] Chloride measurementOrdered By: Demario Coates on 05-12-2024 Chloride [Moles/Vol] 106 mmol/L 98-107 [facility] Erythrocyte distribution wid th (RBC) [Ratio]Ordered By: Demario Coates on 05-12-2024 Erythrocyte distribution width (RBC) [Entitic vol] 42.3 fL 35.1-43.9 [facility] Erythrocyte distribution wid th ratioOrdered By: Demario Coates on 05-12-2024 Erythrocyte distribution width (RBC) [Ratio] 12.7 % 11.6-14.6 [facility] Erythrocyte distribution wid th standard deviationOrdered By: Demario Coates on 05-12-2024 Erythrocyte distribution width (RBC) [Ratio] 42.3 fl 35.1-43.9 [facility] Estimated glomerular filtrat ion rate (GFR) AmericanOrdered By: Demario Coates on 05-12-2024 Estimated GFR (MDRD) Amer 96 mL/min >60 [facility] Comment on above: GFR Calc Glomerular filtration rate ( GFR) estimationOrdered By: Demario Coates on 05-12-2024 Estimated GFR (MDRD) Non-Af Amer 80 mL/min >60 [facility] Comment on above: Non- GFR Calc GFR/1.73 sq M.predicted among non-blacks MDRD (S/P/Bld) [Vol rate/Area] 80 mL/min/{1.73_m2} >60 [facility] Comment on above: Non- GFR Calc Glucose measurementOrdered B y: Demario Coates on 05-12-2024 Glucose [Mass/Vol] 125 mg/dL High 74-106 [facility] Comment on above: Fasting Glucose resu lt from 100 to 125 mg/dL suggests IMPAIRED HOMEOSTASIS per A.D.A. criteria. Hematocrit Auto (Bld) [Volum e fraction]Ordered By: Demario Coates on 05-12-2024 Hematocrit (Bld) [Volume fraction] 35.9 % Low 37-47 [facility] Hemoglobin A1c percentageOrd ered By: Demario Coates on 05-12-2024 HbA1c (Bld) [Mass fraction] 7.2 % High 3.8-5.6 [facility] Comment on above: Normal < 5.7 % Predi abetic 5.7 - 6.4 % Diabetic >or= 6.5 % Please note range changes. Hemoglobin measurementOrdere d By: Demario Coates on 05-12-2024 Hemoglobin (Bld) [Mass/Vol] 11.5 g/dL Low 12.0-15.0 [facility] High density lipoprotein (HD L) measurementOrdered By: Demario Coates on 05-12-2024 Cholesterol in HDL [Mass/Vol] 36 mg/dL Low >40 [facility] Comment on above: The drugs N-Acetylcy steine and Metamizole may falsely depress this assay. Reference Range HDL <40 mg/dL Low HDL Cholesterol HDL >or= 60 mg/dL High HDL Cholesterol Laboratory - Chemistry and C hemistry - challengeOrdered By: Demario Coates on 05-12-2024 AST [Catalytic activity/Vol] 12 U/L Low 15-37 [facility] Low density lipoprotein (LDL ) cholesterol measurementOrdered By: Demario Coates on 05-12-2024 Cholesterol in LDL [Mass/Vol] 120 mg/dL 0-130 [facility] MCV (mean corpuscular volume ) determinationOrdered By: Demario Coates on 05-12-2024 MCV (RBC) [Entitic vol] 91.8 fL 81-99 [facility] Mean corpuscular hemoglobin (MCH) determinationOrdered By: Demario Coates on 05-12-2024 MCH (RBC) [Entitic mass] 29.4 pg 27.0-32.0 [facility] Mean corpuscular hemoglobin concentration (MCHC) determinationOrdered By: Demario Coates on 05-12-2024 MCHC (RBC) [Mass/Vol] 32.0 g/dL 32-36 [facility] Mean platelet volume determi nationOrdered By: Demario Coates on 05-12-2024 Platelet mean volume (Bld) [Entitic vol] 10.7 fL 6.2-12.0 [facility] Platelet countOrdered By: Kenrick Coates on 05-12-2024 Platelets (Bld) [#/Vol] 254 10*3/uL 150-450 [facility] Potassium measurementOrdered By: Demario Coates on 05-12-2024 Potassium [Moles/Vol] 4.1 mmol/L 3.5-5.1 [facility] RBC Auto (Bld) [#/Vol]Ordere d By: Demario Coates on 05-12-2024 RBC (Bld) [#/Vol] 3.91 10*6/uL Low 4.2-5.4 [facility] Serum anion gap measurementO rdered By: Demario Coates on 05-12-2024 Anion gap [Moles/Vol] 8 mmol/L 5-15 [facility] Serum globulin measurementOr dered By: Demario Coates on 05-12-2024 Globulin (S) [Mass/Vol] 3.8 g/dL 2.2-4.2 [facility] Serum or plasma alanine vizcarra otransferase (ALT) measurementOrdered By: Demario Coates on 05-12-2024 ALT [Catalytic activity/Vol] 9 U/L Low 13-56 [facility] Serum or plasma albumin ramiro urement (mass/volume)Ordered By: Demario Coates on 05-12-2024 Albumin [Mass/Vol] 3.2 g/dL 3.2-5.0 [facility] Serum or plasma alkaline santi sphatase measurementOrdered By: Demario Coates on 05-12-2024 ALP [Catalytic activity/Vol] 60 U/L 45-117 [facility] Serum or plasma calcium ramiro urement (mass/volume)Ordered By: Demario Coates on 05-12-2024 Calcium [Mass/Vol] 9.3 mg/dL 8.5-10.1 [facility] Serum or plasma cholesterol measurement (mass/volume)Ordered By: Demario Coates on 05-12-2024 Cholesterol [Mass/Vol] 194 mg/dL <200 [facility] Comment on above: <200 mg/dL Desirable 200-240 mg/dL Borderline >240 mg/dL High Risk Serum or plasma creatinine m easurement (mass/volume)Ordered By: Demario Coates on 05-12-2024 Creatinine [Mass/Vol] 0.74 mg/dL 0.55-1.02 [facility] Comment on above: The validity of the calculated GFR & GFRAA in patients over 70 years has not been determined. Clinical correlation is essential. Serum or plasma thyroid stim ulating hormone (TSH) measurement (units/volume)Ordered By: Demario Coates on 05-12-2024 TSH Qn 0.737 uIU/mL 0.358-3.74 0 [facility] Serum or plasma urea nitroge n measurement (mass/volume)Ordered By: Demario Coates on 05-12-2024 Urea nitrogen [Mass/Vol] 13 mg/dL 7-18 [facility] Sodium levelOrdered By: Thomas Coaets on 05-12-2024 Sodium [Moles/Vol] 140 mmol/L 136-145 [facility] TSH QnOrdered By: Demario saenz on 05-12-2024 Thyroid Stimulating Hormone (TSH) 0.737 uIU/mL 0.358-3.74 0 [facility] Total proteinOrdered By: Colby Coates on 05-12-2024 Protein [Mass/Vol] 7.0 g/dL 6.4-8.2 [facility] Triglycerides measurementOrd ered By: Demario Coates on 05-12-2024 Triglyceride [Mass/Vol] 191 mg/dL <199 [facility] Comment on above: The drugs N-Acetylcy steine and Metamizole may falsely depress this assay.Serum Triglycerides Reference Interval Normal <150 mg/dL Borderline high 150 - 199 mg/dL High 200 - 499 mg/dL Very High > or = 500 mg/dL Very low density lipoprotein (VLDL) cholesterol measurementOrdered By: Demario Coates on 05-12-2024 Very low density lipoprotein (VLDL) cholesterol measurement 38 mg/dL 5-40 [facility] VLDL Cholesterol 38 mg/dL 5-40 [facility] White blood cell (WBC) count Ordered By: Demario Coates on 05-12-2024 WBC (Bld) [#/Vol] 7.5 10*3/uL 4.4-11.0 [facility] 36on 02-11-2024 36 I would check with Lg mcgee to verify. She just requested records. [facility] 36 Do you want last OV notes sent, or something more? [facility] 36 Spoke with Guerita. Rochelle mclean to send records. Please fax to [phone]. Thank you. [facility] [facility] 36on 02-04-2024 36 Called and spoke wit hali Art, her , and her daughter Guerita. They feel the loose stools were related to her recent antibiotic for her UTI symptoms. Agreeable to Metformin 1,000 mg twice a day. Plans to cut back on sugar intake. [facility] Office Visiton 02-01-2024 Follow-up visit [id number] CarlinFabya ra Jett 1940 F Date Provider Department Center 02/01/2024 [id number]-OCJVHRUBINA MOORE [facility] Family History Problem Relation Age of Onset Lung cancer Mother Depression Mother High Blood Pressure Father Hyperlipidemia Father High Blood Pressure Mother Hearing loss Father Heart attack Father Heart disease Father Coronary artery disease Father Family Status - Relation Status Age at Mother Father Level of Service:G0439 [place] PP[place], SUBSEQ VISIT Reason for Visit and Comments: Medicare Annual Wellness Visit Subsequent [677] Health Maintenance [872] - Dexa- declines Zoster- declines Tdap- declines Pna- declines Covid- not done Blood Work [325041] [facility] Progress Noteon 02-01-2024 Progress Note [facility] - [address] [address] Visit type: Established Patient Reason for Visit: [...] complication, without long-term current use of insulin ([facility] Diabetes Foot Exam - Comprehensive metabolic panel - Hemoglobin A1c - Encouraged a diet low in carbohydrates and sugar. Discussed increasing Metformin to 1,000 mg twice a day. 3. 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 Discussed increasing Metformin to 1,000 mg twice a day. 4. Encounter for diabetic foot exam ([facility]) - Diabetes Foot Exam 5. Atherosclerosis of coronary artery of [place] heart without angina pectoris, unspecified vessel or [...] trend: stable Current diet: in general, an "unhealthy" diet- eats a lot so sugary foods [...] worsening sympto (more content not included)... Normal [facility] Progress Note Patient verified by last name and . Normal [facility] Urinalysis macro (dipstick) panel (U)on 02-01-2024 Bilirubin, UA [facility] Blood, UA Trace [facility] Glucose, UA Negative [facility] Ketones, POC (mg/dL) Negative [facility] Leukocytes, UA Trace [facility] th Nitrite, UA Negative [facility] pH, UA 6.0 [facility] Protein, UA Trace [facility] Spec Grav, UA 1.030 [facility] h Urobilinogen, UA 0.2 [facility] alth [facility] 36on 01-31-2024 36 Agree, thank you [facility] 36 Spoke to Guerita, she will actually be in with Faby for an appointment tomorrow morning with Rubina, will have urine tested then. Normal [facility] 36 Yes, I think a urina lysis would be in line, if she cannot get it she can have her daughter collect it and bring it here if she can be here before 4:00. Would recommend that she stop and pick up worker a sterile container. Normal [facility] 36 Ashwini from [facility] called stating she [...] today, Ashwini is calling her next. Normal [facility] 36on 01-28-2024 36 Prescription Request : Last medication check: 11/09/23 Last physical exam: 01/29/23 Next scheduled appointment: 02/01/24 Last date of refill on this medication 06/11/23 90 and 1 refill Normal [facility] [id number] 01-24-2024 [id number] Prescription Request : Last medication check: 11/09/23 Last physical exam: 01/29/23 Next scheduled appointment: 02/01/24 CSA 11/09/23 Last date of refill on this medication Normal [facility] 36on 01-24-2024 36 Reviewed chart. Refi ll appropriate. RX sent. [facility] 36on 01-21-2024 36 Sent mycmartin msg con firming that Guerita picked up the atb [facility] 36 ----- Message from Hali Moore APRN - SUZANNE sent at 01/21/2024 7:05 AM EDT ----- Urine culture is positive for infection. Rx sent for Bactrim. [facility] Progress Noteon 01-16-2024 Progress Note Urine sent for culture. [facility] [id number] 01-10-[id number] Herron, Wanted to give you a heads up regarding Cj. I will get everything together for you, but it looks like the letter of recommendation will need to come from you once we obtain information from the home assessment. Thank you. Rubina Moore APRN - SUZANNE [facility] [id number] Spoke with [facility] and will place an order for a home assessment via [facility] due to reported concerns of recent fall with injury and frequent falls as well as Cj being unsteady on her feet. Per [facility] once home care comes out and records their findings we will need to fax a letter with recommendation for skilled care to [facility]. States this needs to be written by an MD and an [employer] cannot do it. Their fax number is [phone]. Orders placed. [facility] 36on 01-10-2024 36 Rx sent [place] [id number] Received notificatio n from home care that [...] re-submit home care order and proceed accordingly. [facility] 36 Prescription Request : Last medication check: 11/09/23 Last physical exam: 01/29/23 Next scheduled appointment: 02/01/24 Last date of refill on this medication last prescribed was 500mg tid and was increased to 500mg 2 tablets bid on 11/09/23 but was not sent in [facility] 36 Prescription Request : Last medication check: 11/09/23 Last physical exam: 01/29/23 Next scheduled appointment: 02/01/24 Last date of refill on this medication 07/11/23 90 day 1 refill [facility] 36on 01-09-2024 36 Called and spoke travis Stewarthel. Let her know I have a message out with [employer] and will update her once I hear back from them. [facility] 36on 01-01-2024 36 Prescription Request : Last medication check: 11/09/23 Last physical exam: 01/29/23 Next scheduled appointment:02/01/24 Last date of refill on this medication 07/05/23 [facility] Brain/Head without Contrasto n 01-01-2024 Brain/Head without Contrast [facility] [address] [place] [address] Brain/Head without Contrast MR#: [id number] Acct: [id number] Name: CJ GILLIS Rep #: [id number] : 1940 F 83 From: Gael estes MD PCP: Dr. Raeann Parsons MD Status: PRE ER Study: Brain/Head without Contrast Date of Exam: 04/25 Exam# [id number] Ordering Dr: Herb Holm DO 2:[id number] STUDY: CT BRAIN WITHOUT CONTRAST REASON FOR [...] Herb Holm DO; Dr. Raeann Parsons MD Assistant At Surgery: Signed Normal [facility] Emergency Department Summary on 01-01-2024 Emergency Department Summary [facility] Medical Records Department [address] [place] [address] Emergency Department Summary 01/01/24 MR#: [id number] Acct: [id number] Name: CJ GILLIS Rep #: [id number] : 1940 83 From: Herb Holm DO [...] prior to arrival. Tetanus Immunization: <[address] [facility] Medical History Heart murmur Hypercholesteremia Tuberculosis Home [...] (From Vioxx) AdvReac Nausea Verified 01/01/24 10:15 Zcboztx-UMS-LqA Reductase AdvReac Pain in Verified 01/01/24 10:15 Inhibitor (Adohpzy-Vnm-Wcy joints Reductase Inhibitor) Surgical History History of [...] Resp n (more content not included)... Normal [facility] [id number] 12-24-2023 [id number] Rx sent. OARRS repor t reviewed with no discrepancies. CSA signed in November 2023. Normal [facility] [id number] Medication that the patient is discussing (include dose/route/frequency as available): Tramadol 50mg q8h prn CSA signed 11/09/23, last refill 11/26/23 Summary of question: requesting refill Normal [facility] [id number] 11-26-2023 [id number] Rx sent. OARRS repor t reviewed with no discrepancies. CSA signed this month. Normal [facility] [id number] CSA 11/09/2023 Med pended. Normal [facility] 36on 11-12-2023 36 Guerita was notified. Normal [facility] 36 FYI. Normal [facility] 36 ----- Message from CHONG Johnson CNP sent at 11/12/2023 12:13 PM EDT ----- Normal urine protein level. Left a message to return call. Normal [facility] Microalbumin/Creatinine rati o panel (U)on 11-12-2023 Albumin DL <= 20 mg/L (U) [Mass/Vol] 3.2 mg/dL See Note: [facility] Comment on above: Reference Range: Reference Range Not established Albumin/Creatinine (U) [Mass ratio] 20 NINF [facility] Comment on above: The ADA [...] [Mass/Vol] 157 mg/dL 20 - 275 mg/dL [facility] HbA1c (Bld) [Mass fraction]O rdered By: Zonia Jordan on 11-09-2023 Interpretation and review of laboratory results Abnormal [facility] Laboratory - Hematology and Cell countsOrdered By: Zonia Jordan on 11-09-2023 HbA1c (Bld) [Mass fraction] 8.3 % Abnormal - 5.7 % [facility] Office Visiton 11-09-2023 Follow-up visit [id number] Gasper Gillis ra 1940 F Date Provider Department Center 11/09/2023 [id number] MOORE [facility] Family History Problem Relation Age of Onset Lung cancer Mother Depression Mother High Blood Pressure Father Hyperlipidemia Father High Blood Pressure Mother Hearing loss Father Heart attack Father Heart disease Father Coronary artery disease Father Family Status - Relation Status Age at Mother Father Level of Service:34579 [place] OFFICE/OUTPATIENT ESTABLISHED MOD MDM 30 MIN Reason for Visit and Comments: Medication Check [6682057384] Hypertension [370451] Hyperlipidemia [182] Anxiety [9] Normal [facility] Progress Noteon 11-09-2023 Progress Note Patient [...] trend: stable Current diet: in general, an "unhealthy" diet Current exercise: active throughout the day [...] min Stress: No Stress Concern Present (01/29/2023) [place] [employer] - Occupational Stress Questionnaire Feeling of Stress : Only a little Social Connections: Socially Integrated (01/29/2023) Social Connection and Isolation Panel [NHANES] Frequency of Communication with Friends and Family: More than three times a week Frequency of Social Gatherings with Friends and Family: More than three times a week Attends Spiritism Services: More than 4 times per year Active Member of Clubs or Organizations: Yes Attends Club or Organization Meetings: More than 4 times per year Marital Status: Intimate Partner Violence: (more content not included)... [facility] [id number] 10-22-2023 [id number] Rx sent. OARRS repor t reviewed with no discrepancies. CSA will need signed at upcoming appointment. [facility] [id number] 09/27/22 CSA Tramadol [facility] 36on 10-22-2023 36 Agree, thank you [facility] 36 S: Patient's spoke with [facility] nurse regarding possible UTI/kind of out of it/urgency possible pain/still has aetna medicare B: Onset of symptoms/concern yesterday A: thinks she has a uti, states patient has "brain fog", fell and broke 2 ribs recently, in [...] the ED. Patient incontinent, states she seems "out of it". States it's difficult to hear her at this time to tell if she is having speech difficulties. States that is not her baseline. Denies: dark, strong smelling urine, fever, back pain, abdominal pain R: Patient's advised patient should be checked out now due to mental status change and should go to ED or Urgent Care. Patient's understands care advice. Will go to [facility] ED. No further needs at this time. Patient instructed to call back with new or worsening symptoms. Reason for Disposition ? Patient sounds very sick or weak to the triager ? Patient sounds very sick or weak to the triager Mental status change, confusion Protocols used: Urinary Khjatntw-AWAMO-RS, Confusion - Phvkgbjx-IKTGS-IZ [facility] 36on 10-17-2023 36 Unfortunately none o f the other diagnoses are appropriate for why she is needing the patch. Please let family know and may just need to pay out of pocket if they still want to use it. Normal [facility] 36 Denied due to indica tion for use not being covered which was listed in chart as closed fracture of multiple ribs on left side. Is there a different indication we can try? The denial states it is only covered for chronic back pain, postherpetic neuralgia, or diabetic neuropathic pain. Normal [facility] 36on 10-16-2023 36 PA requested for lid ocaine patch. Normal [facility] 36on 10-12-2023 36 Prescription Request : Last medication check: none Last physical exam: 01/29/23 Next scheduled appointment: 11/09/23 Last date of refill on this medication 04/18/23 [facility] Urinalysis macro (dipstick) panel (U)Ordered By: Zonia Jordan on 06-20-2023 Bilirubin, UA Negative [facility] Blood, UA Negative [facility] Glucose, UA Negative [facility] Ketones, POC (mg/dL) Negative [facility] Leukocytes, UA Trace [facility] Nitrite, UA Negative [facility] pH, UA 5.0 [facility] Protein, UA Negative [facility] Spec Grav, UA 1.030 [facility] Urobilinogen, UA 0.2 [facility] Radiology Study observation (narrative) [facility] Urinalysis macro (dipstick) panel (U)on 03-16-2023 Bilirubin, UA Negative [facility] Blood, UA Moderate [facility] Glucose, UA Negative [facility] Interpretation and review of laboratory results Abnormal [facility] Ketones, POC (mg/dL) Negative [facility] Leukocytes, UA Large [facility] Nitrite, UA Negative [facility] pH, UA 5.0 [facility] Protein, UA Negative [facility] Spec Grav, UA 1.025 [facility] Urobilinogen, UA 0.2 [facility] CNOVon 03-05-2023 CNOV Office Visit (PODIWS ) CARLINCJ Jett ([id number]) 1940 F Date Time Provider Department 03/05/23 8:45 AM LYNETTE SANTIAGO During your visit today, we recorded the following information about you: Elizabeth De Guzman, RN 03/05/2023 9:24 AM Signed Patient presents with: [...] and fax results to Dr. Sprague at [phone] No current facility-administered medications for this visit. ALLERGIES Allergen Reactions Celecoxib PALPITATIONS Lipitor [Atorvastat* Other: See Comments Suspects lipitor decreases her hearing loss and tinnitus and liver spots. Morphine GI Upset Opioids-Meperidine * GI Upset Rofecoxib PALPITATIO;NS PAST SURGICAL HISTORY Procedur (more content not included)... Normal [facility] Bacteria identified Cx Nom ( U)on 01-31-2023 Interpretation and review of laboratory results Abnormal [facility] Urine culture (clean catch)o n 01-31-2023 Bacteria identified Cx Nom (U) SEE NOTE Abnormal [facility] Comment on above: CULTURE, URINE, ROUTINE Micro Number: [id number] Test Status: Final Specimen Source: Urine, clean [...] [Ratio] 12.1 % 11.0 - 15.0 % [facility] Hematocrit (Bld) [Volume fraction] 36.7 % 35.0 - 45.0 % [facility] Hemoglobin (Bld) [Mass/Vol] 12.4 g/dL 11.7 - 15.5 g/dL [facility] MCH (RBC) [Entitic mass] 31.2 pg 27.0 - 33.0 pg [facility] MCHC (RBC) [Mass/Vol] 33.8 g/dL 32.0 - 36.0 g/dL [facility] MCV (RBC) [Entitic vol] 92.4 fL 80.0 - 100.0 fL [facility] Platelet mean volume (Bld) [Entitic vol] 11.1 fL 7.5 - 12.5 fL [facility] Platelets (Bld) [#/Vol] 298 10*3/uL [facility] RBC (Bld) [#/Vol] 3.97 10*6/uL [facility] WBC (Bld) [#/Vol] 7.3 10*3/uL [facility] Comprehensive metabolic 1998 panelon 01-30-2023 Albumin [Mass/Vol] 4.3 g/dL 3.6 - 5.1 g/dL [facility] Albumin/Globulin [Mass ratio] 1.4 {ratio} [facility] ALP [Catalytic activity/Vol] 73 U/L 37 - 153 U/L [facility] ALT [Catalytic activity/Vol] 8 U/L 6 - 29 U/L [facility] AST [Catalytic activity/Vol] 10 U/L 10 - 35 U/L [facility] Bilirubin [Mass/Vol] 0.3 mg/dL 0.2 - 1 .2 mg/dL [facility] Calcium [Mass/Vol] 9.5 mg/dL 8.6 - 10. 4 mg/dL [facility] Chloride [Moles/Vol] 103 mmol/L 98 - 11 0 mmol/L [facility] CO2 [Moles/Vol] 27 mmol/L 20 - 32 mmol/L [facility] Creatinine [Mass/Vol] 0.54 mg/dL Low 0.60 - 0.95 mg/dL [facility] GFR/1.73 sq M.predicted among non-blacks MDRD (S/P/Bld) [Vol rate/Area] 92 mL/min/{1.73_m2} > OR = 60 mL/min/1.7 3m2 [facility] Globulin (S) [Mass/Vol] 3.0 g/dL [facility] Glucose [Mass/Vol] 186 mg/dL High 65 - 99 mg/dL [facility] Comment on above: Fasting reference interval For someone without known diabetes, a glucose value >125 mg/dL indicates that they may have diabetes and this should be confirmed with a follow-up test. Potassium [Moles/Vol] 4.2 mmol/L 3.5 - 5.3 mmol/L [facility] [employer] Protein [Mass/Vol] 7.3 g/dL 6.1 - 8.1 g/dL [facility] Sodium [Moles/Vol] 139 mmol/L 135 - 146 mmol/L [facility] Urea nitrogen [Mass/Vol] 12 mg/dL 7 - 25 mg/dL [facility] Urea nitrogen/Creatinine [Mass ratio] 22 mg/mg [facility] Hemoglobin A1con 01-30-2023 HbA1c (Bld) [Mass fraction] 7.6 % High [facility] Comment on above: For someone [...] panelon 3 Cholesterol [Mass/Vol] 237 mg/dL High NINF - 200 mg/dL [facility] Cholesterol in HDL [Mass/Vol] 43 mg/dL Low > OR = 50 [facility] Cholesterol in LDL [Mass/Vol] 164 mg/dL High mg/dL (calc) [facility] Comment on above: Reference range: [...] LDL-C. Owen LANDEROS et al. HARJINDER. 2013;310(19): 0717-5156 (http://education.tribalX.GOVECS/faq/NGC446) Cholesterol non HDL [Mass/Vol] 194 mg/dL High [facility] Comment on above: For patients with di abetes plus 1 major ASCVD risk factor, treating to a non-HDL-C goal of <100 mg/dL (LDL-C of <70 mg/dL) is considered a therapeutic option. Cholesterol.total/Cho lesterol in HDL [Mass ratio] 5.5 {ratio} High [facility] Triglyceride [Mass/Vol] 151 mg/dL High [facility] - 150 mg/dL [facility] No Panel Informationon 01-30 Interpretation and review of laboratory results Abnormal [facility] Urinalysis macro (dipstick) panel (U)on 01-29-2023 Bilirubin, UA Negative [facility] Blood, UA Small [facility] Glucose, UA Negative [facility] Interpretation and review of laboratory results Abnormal [facility] Ketones, UA (mg/dL) Negative Abnormal [facility] Leukocytes, UA Moderate [facility] Nitrite, UA Positive [facility] pH, UA 6.0 [facility] Protein, UA Negative [facility] Spec Grav, UA 1.030 [facility] Urobilinogen, UA 0.2 [facility] Bacteria identified Cx Nom ( U)on 06-15-2022 Interpretation and review of laboratory results Abnormal [facility] Urine culture (clean catch)o n 06-15-2022 Bacteria identified Cx Nom (U) SEE NOTE Abnormal [facility] Comment on above: CULTURE, URINE, ROUTINE Micro Number: [id number] Test Status: Final Specimen Source: Urine, clean [...] (dipstick) panel (U)on 06-12-2022 Bilirubin, UA Negative [facility] h Blood, UA Small [facility] Glucose, UA Negative [facility] Interpretation and review of laboratory results Abnormal [facility] Ketones, UA Negative [facility] Leukocytes, UA Moderate [facility] th Nitrite, UA Negative [facility] pH, UA 6.0 [facility] Protein, UA Negative [facility] Spec Grav, UA 1.030 [facility] Urobilinogen, UA 0.2 [facility] XR Ribs - right Views and est PAon 01-10-2021 IMPRESSION: Right ri bs appear intact. Lungs appear clear. Assistant At Surgery: PSCB Transcribe Date/Time: Jan 10 2021 12:24P Dictated by : SIDNEY FAITH MD This examination was interpreted and the report reviewed and electronically signed by: SIDNEY FAITH MD on Jan 10 2021 12:27PM [facility] DIVISION OF RADIOLOGY * * *Final Report* [...] right humeral head. DIVISION OF RADIOLOGY Provider, [facility] - 01/10/2021 * * *Final Report* * [...] Right ribs appear intact. Lungs appear clear. [facility] Transcribe Date/Time: Jan 10 2021 12:24P Dictated by : SIDNEY FAITH MD This examination was interpreted and the report reviewed and electronically signed by: SIDNEY FAITH MD on Jan 10 2021 12:27PM EST [facility] Radiology Study observation (narrative) [facility] XR Ribs - right Views and est PAOrdered By: Ccf Provider on 01-10-2021 [facility] CULTURE BLOODon 10-27-2020 Microscopic examination of blood, culture CULTURE BLOOD --> Status: F No growth at 5 days. Normal [facility] Comment on above: Performed By: #### C /BLD #### [facility] [address] [place] [address] CULTURE BLOOD (Two)on 2020 Microscopic examination of blood, culture CULTURE BLOOD (Two) --> Status: F No growth at 5 days. Normal [facility] Comment on above: Performed By: #### C /BLT ####[employer] [id number] [place] [address] Glucose, Bedsideon 1 Confirmation see below Normal [facility] Comment on above: Result Comment: No c onfirmation received. Performed By: #### G LUB #### [employer] [facility] [address] [place] [address] Glucose,Bedside > 450 High 70-100 [facility] Comment on above: Result Comment: Test performed by glucose meter. Results may be 10%-15% lower than serum/plasma values. (CLIA ID [id number]) Performed By: #### G LUB #### [facility] [address] [place] [address] CT Abdomen and Pelvis W cont rast IVOrdered By: Nani Villareal on 10-21-2020 Patient Name: CJ GILLIS Computed Tomography ACCESSION EXAM DATE/TIME PROCEDURE ORDERING PROVIDER [id number] 10/21/2020 14:[address] Abdomen/Pelvis w/ IV MD DIONNA, NANI Ortiz Contrast (IV Onl CPT code 56424 Q9967 Reason For Exam (CT Abdomen/Pelvis w/ [...] Phone: [facility], [facility] In[facility] Rad[facility] Results From [facility] - 10/21/2020 3:18 PM EDT Patient Name: CJ GILLIS Computed Tomography ACCESSION EXAM DATE/TIME PROCEDURE ORDERING PROVIDER [id number] 10/21/2020 14:[address] Abdomen/Pelvis w/ IV MD DIONNA, NANI Ortiz Contrast (IV Onl CPT code 89793 Q9967 Reason For Exam (CT Abdomen/Pelvis w/ [...] on --- Final --- Dictating Physician: MD YUENG JAMES Signed Date and Time: 10/21/2020 3:17 pm Signed by: MD YEUNG JAMES Transcribed Date and Time: 10/21/2020 3:18 [facility] Work Phone: [phone] [facility] Work Phone: [phone] CT Abdomen/Pelvis w/ Contras ton 10-21-2020 CT Abdomen/Pelvis w/ Contrast Patient Name: CJ GILLIS Computed Tomography ACCESSION EXAM DATE/TIME PROCEDURE ORDERING PROVIDER [id number] 10/21/2020 14:[address] Abdomen/Pelvis w/ IV MD DIONNA, NANI Ortiz Contrast (IV Onl CPT code 87053 Q9967 Reason For Exam (CT Abdomen/Pelvis w/ [...] Transcribed Date and Time: 10/21/2020 3:18 Normal [facility] Comp Metabolic Panelon 10-21 Calcium [Mass/Vol] 9.6 mg/dL Normal 8.4-10.4 [facility] Comment on above: Performed By: #### Arin TONY CMP3, HEMDF #### [facility] [address] [place] [address] ALP [Catalytic activity/Vol] 73 U/L Normal 38-126 [facility] Comment on above: Performed By: #### T CECILY CMP3, HEMDF #### [facility] [address] [place] [address] ALT [Catalytic activity/Vol] 12 U/L Normal 0-34 [facility] Comment on above: Result Comment: The ALT test is performed by an updated assay method. Please note that the reference intervals have been changed and are now sex specific. Performed By: #### Arin TONY CMP3, HEMDF #### [facility] [address] [place] [address] Anion gap [Moles/Vol] 6 mmol/L Normal 3-13 [facility] Comment on above: Performed By: #### Arni TONY CMP3, HEMDF #### [facility] [address] [place] [address] AST [Catalytic activity/Vol] 30 U/L Normal 15-46 [facility] Comment on above: Performed By: #### T CECILY CMP3, HEMDF #### [facility] [address] [place] [address] Bilirubin [Mass/Vol] 0.4 mg/dL Normal 0.2-1.3 [facility] Comment on above: Performed By: #### Arin TONY CMP3, HEMDF #### [facility] [address] [place] [address] CO2 [Moles/Vol] 25 mmol/L Normal 22-30 [facility] Comment on above: Performed By: #### T CECILY, CMP3, HEMDF #### [facility] [address] [place] [address] Glucose [Mass/Vol] 225 mg/dL High 70-100 [facility] Comment on above: Performed By: #### T ROPN, CMP3, HEMDF #### [facility] [address] [place] [address] Protein [Mass/Vol] 7.4 g/dL Normal 6.3-8.2 [facility] Comment on above: Performed By: #### T ROPN, CMP3, HEMDF #### [facility] [address] [place] [address] Urea nitrogen [Mass/Vol] 29 mg/dL High 7-20 [facility] Comment on above: Performed By: #### T ROPN, CMP3, HEMDF #### [facility] [address] [place] [address] Creatinine [Mass/Vol] 0.81 mg/dL Normal 0.52-1.25 [facility] Comment on above: Performed By: #### T ROPN, CMP3, HEMDF #### [facility] [address] [place] [address] GFR/1.73 sq M.predicted among blacks MDRD (S/P/Bld) [Vol rate/Area] 79.2 mL/min/{1.73_m2} Normal >60 [facility] Comment on above: Performed By: #### T HEATHERN, CMP3, HEMDF #### [facility] [address] [place] [address] GFR/1.73 sq M.predicted among non-blacks MDRD (S/P/Bld) [Vol rate/Area] 68.3 mL/min/{1.73_m2} Normal >60 [facility] Comment on above: Result Comment: KDIG [...] Performed By: #### JAY GONZALES, HEMDF #### [facility] [address] [place] [address] Albumin [Mass/Vol] 4.2 g/dL Normal 3.5-5.0 [facility] Comment on above: Performed By: #### JAY GONZALES, HEMDF #### [facility] [address] [place] [address] Chloride [Moles/Vol] 105 mmol/L Normal 98-107 [facility] Comment on above: Performed By: #### JAY GONZALES, HEMDF #### [facility] [address] [place] [address] Potassium [Moles/Vol] 3.9 mmol/L Normal 3.5-5.1 [facility] Comment on above: Performed By: #### JAY GONZALES, HEMDF #### [facility] [address] [place] [address] Sodium [Moles/Vol] 136 mmol/L Normal 135-145 [facility] Comment on above: Performed By: #### JAY GONZALES, HEMDF #### [facility] [address] [place] [address] Comprehensive Metabolic Pane lOrdered By: Astrid Da Silva on 10-21-2020 Albumin [Mass/Vol] 4.2 g/dL 3.5 - 5.0 g/dL [facility] Work Phone: ALP (Bld) [Catalytic activity/Vol] 73 U/L 38 - 126 U/L [facility] Work Phone: [phone] ALT [Catalytic activity/Vol] 12 U/L 0 - 34 U/L [facility] Work Phone: Comment on above: The ALT test is perf ormed by an updated assay method. Please note that the reference intervals have been changed and are now sex specific. Anion gap [Moles/Vol] 6 mmol/L 3 - 13 mmol/L [facility] Work Phone: [phone] AST [Catalytic activity/Vol] 30 U/L 15 - 46 U/L [facility] Work Phone: 1 Bilirubin [Mass/Vol] 0.4 mg/dL 0.2 - 1 .3 mg/dL [facility] Work Phone: Calcium [Mass/Vol] 9.6 mg/dL 8.4 - 10. 4 mg/dL [facility] Work Phone: 1 Chloride [Moles/Vol] 105 mmol/L 98 - 10 7 mmol/L [facility] Work Phone: CO2 [Moles/Vol] 25 mmol/L 22 - 30 mmol/L [facility] Work Phone: Creatinine [Mass/Vol] 0.81 mg/dL 0.52 - 1.25 mg/dL [facility] Work Phone: 1 EGFR IF NonAfrican Nepalese 68.3 mL/min >60 [facility] Work Phone: Comment on above: KDIGO guidelines [...] fraction] 7.4 g/dL 6.3 - 8.2 g/dL [facility] Work Phone: [phone] GFR/1.73 sq M.predicted among blacks MDRD (S/P/Bld) [Vol rate/Area] 79.2 mL/min/{1.73_m2} >60 [facility] Work Phone: [phone] Glucose [Mass/Vol] 225 mg/dL High 70 - 100 mg/dL [facility] Work Phone: Interpretation and review of laboratory results Abnormal [facility] Work Phone: Potassium [Moles/Vol] 3.9 mmol/L 3.5 - 5.1 mmol/L [facility] Work Phone: [phone] Sodium [Moles/Vol] 136 mmol/L 135 - 145 mmol/L [facility] Work Phone: [phone] Urea nitrogen (BldV) [Mass/Vol] 29 mg/dL High 7 - 20 mg/dL [facility] Work Phone: [phone] Test Performed by [facility], [address] [place], [place], [place] [address] [facility] Work Phone: [phone] [facility] Work Phone: ED Provider Noteon 1 ED Provider Note Emergency Department Encounter [facility] ED Patient: Cj Gillis : [...] are mis-transcribed.) NANI VILLAREAL MD Acute Care [facility] Nani Villareal MD 10/21/20 1429 [facility] ED Provider Note Emergency Department Encounter Location: [facility] ED Patient: Cj Gillis : 1940 Date of evaluation: 10/21/2020 ED Provider: Ladarius Drake DO 3:00p.m. Cj Gillis was checked out to [...] and signs of proctosigmoiditis. Patient admitted to [facility] for IV antibiotics. I have reviewed [...] eGFR 79.2 >60 mL/min EGFR IF NonAfrican Nepalese 68.3 >60 mL/min Calcium 9.6 8.4 - [...] # 1.3 1.0 - 4.3 10*3/uL Absolute [place] # 0.8 0.0 - 0.8 10*3/uL Absolute Eos # 0.1 0.0 - 0.5 10*3/uL Absolute Baso # 0.0 0.0 - 0.2 10*3/uL Troponin x1 Result Value Ref Range Troponin I <0.012 0.000 - 0.034 ng/mL CT Abdomen Pelvis W Contrast Result Date: 10/21/2020 [id number] Tom[facility] ACCESSION EXAM DATE/TIME PROCEDURE ORDERING PROVIDER [id number] 10/21/2020 14:[address] Abdomen/Pelvis w/ IV MD DIONNA, NANI Ortiz Contrast (IV Onl CPT code 87014 Q9967 Reason For Exam (CT Abdomen/Pelvis w/ [...] JAMES Transcr (more content not included)... Normal [facility] ED Provider Note [facility] ED eMERGENCY dEPARTMENT eNCOUnter Pt Name: [...] TAKE 1 TABLET DAILY INCONTINENCE SUPPLY DISPOSABLE ([place]ie INCONTINENCE PADS) MISC 100 each by Does [...] Hearing L (more content not included)... Normal [facility] Hemogram (CBC) w/Auto DiffOr dered By: Astrid Da Silva on 10-21-2020 Absolute Baso # 0.0 10*3/uL 0.0 - 0.2 10*3/uL [facility] Work Phone: 1 Absolute Neut # 15.2 10*3/uL High 1.8 - 7.0 10*3/uL [facility] Work Phone: [phone] Basophils/100 WBC (Bld) 0.3 % 0.0 - 2.0 % [facility] Work Phone: 1 Eosinophils (Bld) [#/Vol] 0.1 10*3/uL 0.0 - 0.5 10*3/uL [facility] Work Phone: [phone] 22 Eosinophils/100 WBC (Bld) 0.3 % Low 1.0 - 6.0 % [facility] Work Phone: 1 Granulocytes/100 WBC (Bld) 87.7 % High 40.0 - 80.0 % [facility] Work Phone: Hematocrit (Bld) [Volume fraction] 41.2 % 35.0 - 47.0 % [facility] Work Phone: Hemoglobin.gastrointe stinal spec 1 Ql (Stl) 13.8 g/dL 11.7 - 16.0 g/dL [facility] Work Phone: Interpretation and review of laboratory results Abnormal [employer] Work Phone: 1 Lymphocytes (Bld) [#/Vol] 1.3 10*3/uL 1.0 - 4.3 10*3/uL [facility] Work Phone: 22 Lymphocytes/100 WBC (Bld) 7.3 % Low 20.0 - 40.0 % [facility] Work Phone: MCH (RBC) [Entitic mass] 30.3 pg 26.0 - 34.0 pg [facility] Work Phone: MCHC (RBC) [Mass/Vol] 33.4 % 32.0 - 36.0 % [facility] Work Phone: MCV (RBC) [Entitic vol] 90.8 fL 79.0 - 98.0 fL [facility] Work Phone: Monocytes (Bld) [#/Vol] 0.8 10*3/uL 0.0 - 0.8 10*3/uL [facility] Work Phone: 1) 22 Monocytes/100 WBC (Bld) 4.4 % 2.0 - 10.0 % [facility] Work Phone: 1 Platelet distribution width (Bld) [Ratio] 13.0 % 11.5 - 14.5 % [employer] Work Phone: 1 Platelet mean volume (Bld) [Entitic vol] 8.4 fL 7.4 - 10.4 fL [facility] Work Phone: 1() Platelets (Bld) [#/Vol] 260 10*3/uL 140 - 440 10*3/uL [facility] Work Phone: 1) RBC (Bld) [#/Vol] 4.54 10*6/uL 3.80 - 5.20 10*6/uL [facility] Work Phone: 1) WBC (Bld) [#/Vol] 17.3 10*3/uL High 3.6 - 10.7 10*3/uL [employer] [facility] Work Phone: 1) Test Performed by [facility], [address] [place], [place] [address] [employer] Work Phone: 1 [employer] Work Phone: 1 Hemogram w/ Autodiffon 10-21 Abs Baso Cnt 0.0 10*3/uL Normal 0.0-0.2 [facility] Comment on above: Performed By: #### Arin TONY CMP3, HEMDF #### [facility] [address] [place] [address] Abs Neutrophile Cnt 15.2 10*3/uL High 1.8-7.0 [facility] Comment on above: Performed By: #### Arin TONY CMP3, HEMDF #### [facility] [address] [place] [address] Basophils/100 WBC (Bld) 0.3 % Normal 0.0-2.0 [facility] Comment on above: Performed By: #### Arin TONY CMP3, HEMDF #### [facility] [address] [place] [address] Eosinophils (Bld) [#/Vol] 0.1 10*3/uL Normal 0.0-0.5 [facility] Comment on above: Performed By: #### Arin TONY CMP3, HEMDF #### [facility] [address] [place] [address] Eosinophils/100 WBC (Bld) 0.3 % Low 1.0-6.0 [facility] Comment on above: Performed By: #### Arin TONY CMP3, HEMDF #### [facility] [address] [place] [address] Erythrocyte distribution width (RBC) [Ratio] 13.0 % Normal 11.5-14.5 [facility] Comment on above: Performed By: #### Arin TONY CMP3, HEMDF #### [facility] [address] [place] [address] Granulocytes/100 WBC (Bld) 87.7 % High 40.0-80.0 [facility] Comment on above: Performed By: #### Arin TONY CMP3, HEMDF #### [facility] [address] [place] [address] Hematocrit (Bld) [Volume fraction] 41.2 % Normal 35.0-47.0 [facility] Comment on above: Performed By: #### Arin TONY CMP3, HEMDF #### [facility] [address] [place] [address] Hemoglobin (Bld) [Mass/Vol] 13.8 g/dL Normal 11.7-16.0 [facility] Comment on above: Performed By: #### T CECILY CMP3, HEMDF #### [facility] [address] [place] [address] Lymphocytes (Bld) [#/Vol] 1.3 10*3/uL Normal 1.0-4.3 [facility] Comment on above: Performed By: #### T CECILY, CMP3, HEMDF #### [facility] [address] [place] [address] Lymphocytes/100 WBC (Bld) 7.3 % Low 20.0-40.0 [facility] Comment on above: Performed By: #### T ROPN, CMP3, HEMDF #### [facility] [address] [place] [address] MCH (RBC) [Entitic mass] 30.3 pg Normal 26.0-34.0 [facility] Comment on above: Performed By: #### T ROPN, CMP3, HEMDF #### [facility] [address] [place] [address] MCHC 33.4 % Normal 32.0-36.0 [facility] Comment on above: Performed By: #### T ROPN, CMP3, HEMDF #### [facility] [address] [place] [address] MCV (RBC) [Entitic vol] 90.8 fL Normal 79.0-98.0 [facility] Comment on above: Performed By: #### T ROPN, CMP3, HEMDF #### [facility] [address] [place] [address] Monocytes (Bld) [#/Vol] 0.8 10*3/uL Normal 0.0-0.8 [facility] Comment on above: Performed By: #### T HEATHERN, CMP3, HEMDF #### [facility] [address] [place] [address] Monocytes/100 WBC (Bld) 4.4 % Normal 2.0-10.0 [facility] Comment on above: Performed By: #### T ROPN, CMP3, HEMDF #### [facility] [address] [place] [address] Platelet mean volume (Bld) [Entitic vol] 8.4 fL Normal 7.4-10.4 [facility] Comment on above: Performed By: #### T ROPN, CMP3, HEMDF #### [facility] [address] [place] [address] Platelets (Bld) [#/Vol] 260 10*3/uL Normal 140-440 [facility] Comment on above: Performed By: #### T ROPN, CMP3, HEMDF #### [facility] [address] [place] [address] RBC (Bld) [#/Vol] 4.54 10*6/uL Normal 3.80-5.20 [facility] Comment on above: Performed By: #### T JAY TONY, HEMDF #### [facility] [address] [place] [address] WBC (Bld) [#/Vol] 17.3 10*3/uL High 3.6-10.7 [facility] Comment on above: Performed By: #### JAY GONZALES, HEMDF #### [facility] [address] [place] [address] Troponin Ion 10-21-2020 Troponin I.cardiac [Mass/Vol] ng/mL Normal 0.000-0.03 4 [facility] Comment on above: Result Comment: . Performed By: #### JAY GONZALES, HEMDF #### [facility] [address] [place] [address] Troponin [id number] By: Astrid parada on 10-21-2020 Troponin I.cardiac [Mass/Vol] ng/mL 0.000 - 0.034 ng/mL [facility] Work Phone: Comment on above: . Test Performed by [facility], [address] [place], [place] [address] [facility] Work Phone: [facility] Work Phone: CR Wrist Complete 3 Views Bi lateralon 07-23-2020 CR Wrist Complete 3 Views Bilateral Patient Name: CJ GILLIS Diagnostic Radiology ACCESSION EXAM DATE/TIME PROCEDURE ORDERING PROVIDER [id number] 07/23/2020 14:55 EDT CR Wrist Complete 3 SUZANNE MOORE HOLLY S Views Bilateral CPT code 99906 Reason For Exam (CR Wrist Complete 3 [...] Transcribed Date and Time: 07/26/2020 8:43 Normal [facility] CT Head WO Contraston 2020 Patient Name: CJ GILLIS Computed Tomography ACCESSION EXAM DATE/TIME PROCEDURE ORDERING PROVIDER [id number] 06/09/2020 14:[address] Head or Brain w/o MD SANTANA, YEYO Contrast CPT code 21040 Reason For Exam (CT Head or Brain [...] Phone: [facility], [facility] Rad[facility] Results From [facility] - 06/09/2020 3:26 PM EST Patient Name: CJ GILLIS Computed Tomography ACCESSION EXAM DATE/TIME PROCEDURE ORDERING PROVIDER [id number] 06/09/2020 14:[address] Head or Brain w/o MD SANTANA, YEYO Contrast CPT code 77005 Reason For Exam (CT Head or Brain [...] Brain w/o Contrast Patient Name: CJ GILLIS Computed Tomography ACCESSION EXAM DATE/TIME PROCEDURE ORDERING PROVIDER [id number] 06/09/2020 14:[address] Head or Brain w/o MD SANTANA, YEYO Contrast CPT code 24014 Reason For Exam (CT Head or Brain [...] Transcribed Date and Time: 06/09/2020 3:26 Normal [facility] Microbiology: Culture, Urine on 11-12-2016 CATY . [facility] GE use only - for [employer] import when terms are not otherwise specified . Invalid Interpretation Code [facility] Office Visit: Pain following surgeryon 11-09-2016 Documentation of current medications (procedure) Done Invalid Interpretation Code [facility] Fall risk assessment No Invalid Interpretation Code [facility] Protein mass conc Done [facility] Tobacco smoking status NHIS Never Invalid Interpretation Code [facility] Tobacco smoking status NHIS Never smoker [facility] Tobacco use [facility] Never smoker Invalid Interpretation Code [facility] Vital Signs Date Time Vital Sign Value Performing Clinician Facility 09-27-2024 22:45-0400 Diastolic blood pressure 66 mm[Hg] Dayton Morin DO Work Phone: [facility] 09-27-2024 22:45-0400 Heart rate 79 /min Dayton Morin DO Work Phone: [facility] 09-27-2024 22:45-0400 Respiratory rate 17 /min Dayton Morin DO Work Phone: [facility] 09-27-2024 22:45-0400 SaO2% (BldA) [Mass fraction] 95 % Dayton Morin DO Work Phone: [facility] 09-27-2024 22:45-0400 Systolic blood pressure 139 mm[Hg] Dayton Morin DO Work Phone: [facility] 09-27-2024 16:59-0400 Body height 162.6 cm Dayton Morin DO Work Phone: [facility] 09-27-2024 16:59-0400 Body mass index (BMI) [Ratio] 20.6 kg/m2 Dayton Morin DO Work Phone: [facility] 09-27-2024 16:59-0400 Body temperature 98.01 [degF] Dayton Morin DO Work Phone: [facility] 09-27-2024 16:59-0400 Body weight 54.43 kg Dayton Morin DO Work Phone: [facility] [employer] 02-01-2024 08:54-0400 Body height 159.4 cm Rubina Moore FOOD SERVICE DRIVER - SENIOR HEALTH PHYSICS TECHNICIAN Work Phone: [facility] [employer] 02-01-2024 08:54-0400 Body mass index (BMI) [Ratio] 22.91 kg/m2 Rubina Moore FOOD SERVICE DRIVER - SENIOR HEALTH PHYSICS TECHNICIAN Work Phone: [facility] [employer] 02-01-2024 08:54-0400 Body weight 58.2 kg Rubina Moore FOOD SERVICE DRIVER - SENIOR HEALTH PHYSICS TECHNICIAN Work Phone: [employer] 02-01-2024 08:54-0400 Diastolic blood pressure 64 mm[Hg] Rubina Moore FOOD SERVICE DRIVER - SENIOR HEALTH PHYSICS TECHNICIAN Work Phone: [facility] [employer] 02-01-2024 08:54-0400 Heart rate 78 /min Rubina Moore FOOD SERVICE DRIVER - SENIOR HEALTH PHYSICS TECHNICIAN Work Phone: [facility] [employer] 02-01-2024 08:54-0400 SaO2% (BldA) [Mass fraction] 98 % Rubina Moore FOOD SERVICE DRIVER - SENIOR HEALTH PHYSICS TECHNICIAN Work Phone: [employer] 02-01-2024 08:54-0400 Systolic blood pressure 108 mm[Hg] Rubina Moore FOOD SERVICE DRIVER - SENIOR HEALTH PHYSICS TECHNICIAN Work Phone: [employer] 11-09-2023 10:42-0400 Body height 159.4 cm Rubina Moore FOOD SERVICE DRIVER - SENIOR HEALTH PHYSICS TECHNICIAN Work Phone: [employer] 11-09-2023 10:42-0400 Body mass index (BMI) [Ratio] 22.96 kg/m2 Rubina Moore FOOD SERVICE DRIVER - SENIOR HEALTH PHYSICS TECHNICIAN Work Phone: [employer] 11-09-2023 10:42-0400 Body weight 58.33 kg Rubina Moore FOOD SERVICE DRIVER - SENIOR HEALTH PHYSICS TECHNICIAN Work Phone: [employer] 11-09-2023 10:42-0400 Diastolic blood pressure 68 mm[Hg] Rubina Oscar FOOD SERVICE DRIVER - SENIOR HEALTH PHYSICS TECHNICIAN Work Phone: [employer] 11-09-2023 10:42-0400 Heart rate 74 /min Rubina Oscar FOOD SERVICE DRIVER - SENIOR HEALTH PHYSICS TECHNICIAN Work Phone: [facility] [employer] 11-09-2023 10:42-0400 SaO2% (BldA) [Mass fraction] 95 % Rubina Oscar FOOD SERVICE DRIVER - SENIOR HEALTH PHYSICS TECHNICIAN Work Phone: [facility] [employer] 11-09-2023 10:42-0400 Systolic blood pressure 102 mm[Hg] Rubina Moore FOOD SERVICE DRIVER - SENIOR HEALTH PHYSICS TECHNICIAN Work Phone: [facility] [employer] 07-26-2023 14:54-0400 Diastolic blood pressure 57 mm[Hg] Nadia Laurel FOOD SERVICE DRIVER - SENIOR HEALTH PHYSICS TECHNICIAN Work Phone: [facility] [employer] 07-26-2023 14:54-0400 Heart rate 80 /min Nadia Barragan FOOD SERVICE DRIVER - SENIOR HEALTH PHYSICS TECHNICIAN Work Phone: [facility] [employer] 07-26-2023 14:54-0400 Systolic blood pressure 96 mm[Hg] Nadia Barragan FOOD SERVICE DRIVER - SENIOR HEALTH PHYSICS TECHNICIAN Work Phone: [facility] [employer] 07-26-2023 14:43-0400 Body height 159.4 cm Nadia Laurel FOOD SERVICE DRIVER - SENIOR HEALTH PHYSICS TECHNICIAN Work Phone: [facility] [employer] 07-26-2023 14:43-0400 Body mass index (BMI) [Ratio] 22.28 kg/m2 Nadia Barragan FOOD SERVICE DRIVER - SENIOR HEALTH PHYSICS TECHNICIAN Work Phone: [facility] [employer] 07-26-2023 14:43-0400 Body weight 56.61 kg aNdia Barragan FOOD SERVICE DRIVER - SENIOR HEALTH PHYSICS TECHNICIAN Work Phone: [facility] [employer] 03-16-2023 08:06-0500 Diastolic blood pressure 76 mm[Hg] Rubina Oscar FOOD SERVICE DRIVER - SENIOR HEALTH PHYSICS TECHNICIAN Work Phone: [facility] [employer] 03-16-2023 08:06-0500 Systolic blood pressure 142 mm[Hg] Rubina Moore FOOD SERVICE DRIVER - SENIOR HEALTH PHYSICS TECHNICIAN Work Phone: [facility] [employer] 03-16-2023 07:54-0500 Body height 161.3 cm Rubina Moore FOOD SERVICE DRIVER - SENIOR HEALTH PHYSICS TECHNICIAN Work Phone: [facility] [employer] 03-16-2023 07:54-0500 Body mass index (BMI) [Ratio] 21.76 kg/m2 Rubina Moore FOOD SERVICE DRIVER - SENIOR HEALTH PHYSICS TECHNICIAN Work Phone: [facility] [employer] 03-16-2023 07:54-0500 Body weight 56.61 kg Rubina Moore FOOD SERVICE DRIVER - SENIOR HEALTH PHYSICS TECHNICIAN Work Phone: [facility] [employer] 03-16-2023 07:54-0500 Heart rate 75 /min Rubina Moore FOOD SERVICE DRIVER - SENIOR HEALTH PHYSICS TECHNICIAN Work Phone: [facility] [employer] 03-16-2023 07:54-0500 SaO2% (BldA) [Mass fraction] 98 % Rubina Moore FOOD SERVICE DRIVER - SENIOR HEALTH PHYSICS TECHNICIAN Work Phone: [facility] [employer] 01-29-2023 11:46-0400 Diastolic blood pressure 62 mm[Hg] Rubina Moore FOOD SERVICE DRIVER - SENIOR HEALTH PHYSICS TECHNICIAN Work Phone: [facility] [employer] 01-29-2023 11:46-0400 Systolic blood pressure 142 mm[Hg] Rubina Moore FOOD SERVICE DRIVER - SENIOR HEALTH PHYSICS TECHNICIAN Work Phone: [facility] 01-29-2023 10:46-0400 Body height 161.3 cm Rubina Moore FOOD SERVICE DRIVER - SENIOR HEALTH PHYSICS TECHNICIAN Work Phone: [facility] [employer] 01-29-2023 10:46-0400 Body mass index (BMI) [Ratio] 22.21 kg/m2 Rubina Moore FOOD SERVICE DRIVER - SENIOR HEALTH PHYSICS TECHNICIAN Work Phone: [facility] [employer] 01-29-2023 10:46-0400 Body weight 57.79 kg Rubina Moore FOOD SERVICE DRIVER - SENIOR HEALTH PHYSICS TECHNICIAN Work Phone: [facility] [employer] 01-29-2023 10:46-0400 Heart rate 65 /min Rubina Moore FOOD SERVICE DRIVER - SENIOR HEALTH PHYSICS TECHNICIAN Work Phone: [facility] [employer] 01-29-2023 10:46-0400 SaO2% (BldA) [Mass fraction] 96 % Rubina Moore FOOD SERVICE DRIVER - SENIOR HEALTH PHYSICS TECHNICIAN Work Phone: [facility] [employer] 11-13-2022 13:22-0400 Body height 157.5 cm Rubina Moore FOOD SERVICE DRIVER - SENIOR HEALTH PHYSICS TECHNICIAN Work Phone: [facility] 11-13-2022 13:22-0400 Body mass index (BMI) [Ratio] 22.86 kg/m2 Rubina Moore FOOD SERVICE DRIVER - SENIOR HEALTH PHYSICS TECHNICIAN Work Phone: [facility] 11-13-2022 13:22-0400 Body weight 56.7 kg Rubina Moore FOOD SERVICE DRIVER - SENIOR HEALTH PHYSICS TECHNICIAN Work Phone: [facility] 11-13-2022 13:22-0400 Diastolic blood pressure 60 mm[Hg] Rubina Moore FOOD SERVICE DRIVER - SENIOR HEALTH PHYSICS TECHNICIAN Work Phone: [facility] 11-13-2022 13:22-0400 Heart rate 70 /min Rubina Moore FOOD SERVICE DRIVER - SENIOR HEALTH PHYSICS TECHNICIAN Work Phone: [facility] 11-13-2022 13:22-0400 SaO2% (BldA) [Mass fraction] 96 % Rubina Moore FOOD SERVICE DRIVER - SENIOR HEALTH PHYSICS TECHNICIAN Work Phone: [facility] 11-13-2022 13:22-0400 Systolic blood pressure 122 mm[Hg] Rubina Moore FOOD SERVICE DRIVER - SENIOR HEALTH PHYSICS TECHNICIAN Work Phone: [facility] 04-27-2022 15:42-0500 Respiratory rate 16 /min [facility] 04-27-2022 12:52-0500 SaO2% (BldA) [Mass fraction] 94 % [facility] 04-27-2022 12:18-0500 Body height 165.1 cm [facility] 04-27-2022 12:18-0500 Body mass index (BMI) [Ratio] 20.5 kg/m2 [facility] 04-27-2022 12:18-0500 Body temperature 97.5 [degF] [facility] 04-27-2022 12:18-0500 Body weight 55.77 kg [facility] 04-27-2022 12:18-0500 Diastolic blood pressure 88 mm[Hg] [facility] 04-27-2022 12:18-0500 Heart rate 86 /min [facility] 04-27-2022 12:18-0500 Systolic blood pressure 118 mm[Hg] [facility] 10-21-2020 12:13-0400 Body height 160 cm Nani Villareal MD Work Phone: [facility] Work Phone: 10-21-2020 12:13-0400 Body mass index (BMI) [Ratio] 23.03 kg/m2 Nani Villareal MD Work Phone: [facility] Work Phone: 10-21-2020 12:13-0400 Body temperature 95.5 [degF] Nani Villareal MD Work Phone: [facility] Work Phone: 10-21-2020 12:13-0400 Body weight 58.97 [...] Mass Index) 21.6 kg/m2 Kenyetta Arguelles NP [facility] 11-09-2016 13:44-0400 Body Temperature 97.2 [degF] Kenyetta Arguelles NP [facility] 11-09-2016 13:44-0400 BP Diastolic 65 mm[Hg] Keynetta Arguelles [employer] [facility] 11-09-2016 13:44-0400 BP Systolic 116 mm[Hg] Kenyetta Kindra [employer] [facility] 11-09-2016 13:44-0400 Height 166.37 cm Kenyetta Arguelles [employer] [facility] 11-09-2016 13:44-0400 Pulse (Heart Rate) 65 /min Kenyetta Arguelles [employer] DEVELOPER [facility] 11-09-2016 13:44-0400 Respiratory Rate 16 /min Kenyetta Arguelles [employer] DEVELOPER [facility] 11-09-2016 13:44-0400 Weight 59.78 kg Kenyetta Arguelles [employer]EL[employer] [facility] Encounters Encounter Date Encounter Type Care Provider Facility Start: 11-03-2024 ambulatory UNKNOWN PROVIDER Facili ty:[facility] Start: 11-03-2024 End: 11-03-2024 Subsequent hospital visit by physician Xr [facility] Radiology Comment on above: Left ureteral stone [N20.1] Start: 10-08-2024 [facility] Facility :[facility] Start: 09-27-2024 End: 09-27-2024 Emergency department patient visit Dayton Morin DO Work Phone: [facility] ED Comment on above: Encounter for examin ation following a fall (Primary Dx); Severe Alzheimer's dementia without behavioral disturbance, psychotic disturbance, mood disturbance, or anxiety, unspecified timing of dementia onset (HCC) Start: 09-11-2024 ambulatory [facility] Facility :[facility] Start: 09-08-2024 ambulatory Demario RODRIGUEZ Facil ity:[facility] Start: 08-28-2024 End: 08-28-2024 Telephone encounter Rey Rowan MD Work Phone: [facility] Provider Adult Start: 08-28-2024 End: 08-28-2024 ambulatory [facility] Facility:[facility] Start: 08-27-2024 End: 08-27-2024 Telephone encounter Jet Smart LPN Pre Anesthesia Start: 08-06-2024 End: 08-08-2024 Evaluation and management of inpatient CHAPARRO NAVA Facility:[facility] Start: 08-06-2024 End: 08-06-2024 Emergency department patient visit CARLOS HERRON Facility:[facility] Start: 08-04-2024 End: 08-04-[address] Carlos Herron MD Work Phone: [facility] Work Phone: Start: 08-04-2024 End: 08-04-2024 Departed Referred Demario Linares [employer] [address] Start: 08-04-2024 End: 08-04-2024 ambulatory Demario RODRIGUEZ Facility:[facility] Start: 06-12-2024 End: 06-12-[address] Carlos Herron MD Work Phone: [facility] Work Phone: Start: 06-12-2024 End: 06-12-2024 Departed Referred Demario Linares [place] [facility] [address] Start: 06-12-2024 End: 06-12-2024 ambulatory Demario RODRIGUEZ Facility:[facility] Start: 05-12-2024 ambulatory Carlos Germaine Facility :[facility] Start: 05-12-2024 Registered Referred Demaroi Schwab [facility] [place] [facility] [address] Start: 03-05-2024 End: 03-05-2024 ambulatory Carlos Germaine Facility:[facility] Start: 02-15-2024 End: 02-15-2024 ambulatory Carlos Germaine Facility:[facility] Start: 02-11-2024 End: 02-11-2024 Orders Only Rubina Moore FOOD SERVICE DRIVER - SENIOR HEALTH PHYSICS TECHNICIAN Work Phone: [facility] Start: 02-04-2024 End: 02-04-2024 Orders Only Rubina Moore FOOD SERVICE DRIVER - SENIOR HEALTH PHYSICS TECHNICIAN Work Phone: [facility] Comment on above: Type 2 diabetes adrrion itus with hyperlipidemia (HCC) ([facility]); Diabetic polyneuropathy associated with diabetes mellitus due to underlying condition ([facility]/HCC) (HCC) Start: 02-01-2024 End: 02-01-2024 Patient encounter procedure Rubina Moore APRN - SENIOR HEALTH PHYSICS TECHNICIAN Work Phone: [facility] Comment on above: Medicare annual well [facility] visit, subsequent (Primary Dx); Type 2 diabetes mellitus without complication, without long-term current use of insulin ([facility]) ([facility]); Diabetic polyneuropathy associated with diabetes mellitus due to underlying condition ([facility]) ([facility]); Encounter for diabetic foot exam ([facility]); Atherosclerosis of coronary artery of [place] heart without angina pectoris, unspecified vessel or lesion type; Essential hypertension, benign; Mixed hyperlipidemia; Statin declined; Mixed Alzheimer's and vascular dementia ([facility]); Osteoarthritis, unspecified osteoarthritis type, unspecified site; Chronic pain of both feet; Mild episode of recurrent major depressive disorder ([facility]); Recurrent UTI; Mixed stress and urge urinary incontinence; Overactive bladder; Urinary frequency; Screening for deficiency anemia Start: 02-01-2024 End: 02-01-[address] [facility] Start: 02-01-2024 End: 02-01-2024 Encounter for general adult medical examination without abnormal findings RUBINA MOORE [facility] Start: 01-31-2024 End: 01-31-2024 Telephone encounter Rubina Moore APRN - SENIOR HEALTH PHYSICS TECHNICIAN Work Phone: [facility] Comment on above: Advice Only Start: 01-28-2024 End: 01-28-2024 Refill Rubina Moore FOOD SERVICE DRIVER - SENIOR HEALTH PHYSICS TECHNICIAN Work Phone: [facility] Comment on above: Atherosclerosis of c oronary artery of [place] heart without angina pectoris, unspecified vessel or lesion type; Essential hypertension, benign Start: 01-21-2024 End: 01-21-2024 Orders Only Rubina Moore FOOD SERVICE DRIVER - SENIOR HEALTH PHYSICS TECHNICIAN Work Phone: [facility] Start: 01-16-2024 End: 01-16-[address] [facility] Start: 01-10-2024 End: 01-10-2024 Refill Rubina Moore FOOD SERVICE DRIVER - SENIOR HEALTH PHYSICS TECHNICIAN Work Phone: [facility] Start: 01-01-2024 End: 01-01-2024 Refill Elliot Benoit FOOD SERVICE DRIVER - SENIOR HEALTH PHYSICS TECHNICIAN Work Phone: [facility] Start: 01-01-2024 End: 01-01-2024 Emergency department patient visit Carlos Herron Facility:[facility] Start: 11-09-2023 End: 11-09-2023 ambulatory [facility] Start: 11-09-2023 End: 11-09-2023 Office outpatient visit 25 minutes Rubina Jett Oscar FOOD SERVICE DRIVER - SENIOR HEALTH PHYSICS TECHNICIAN Work Phone: [facility] Comment on above: Type 2 diabetes darrion itus without complication, without long- term current use of insulin ([facility]) ([facility]) (Primary Dx); Diabetic polyneuropathy associated with diabetes mellitus due to underlying condition ([facility]) ([facility]); Encounter for diabetic foot exam ([facility]); Mixed Alzheimer's and vascular dementia ([facility]); Osteoarthritis, unspecified osteoarthritis type, unspecified site; Chronic pain of both feet; Mild episode of recurrent major depressive disorder ([facility]); Mixed stress and urge urinary incontinence; Overactive bladder Type 2 diabetes darrion itus with hyperlipidemia ([facility]) ([facility]) (Primary Dx); Diabetic polyneuropathy associated with diabetes mellitus due to underlying condition ([facility]) ([facility]); Encounter for diabetic foot exam ([facility]); Mixed Alzheimer's and vascular dementia ([facility]); Osteoarthritis, unspecified osteoarthritis type, unspecified site; Chronic pain of both feet; Mild episode of recurrent major depressive disorder ([facility]); Mixed stress and urge urinary incontinence; Overactive bladder Start: 10-12-2023 End: 10-12-2023 Refill Rubina Jett Oscar FOOD SERVICE DRIVER - SENIOR HEALTH PHYSICS TECHNICIAN Work Phone: [facility] Start: 07-26-2023 End: 07-26-2023 Office outpatient new 60 minutes Nadia Barragan FOOD SERVICE DRIVER - SENIOR HEALTH PHYSICS TECHNICIAN Work Phone: [facility] Geriatrics Comment on above: Mixed Alzheimer's an d vascular dementia ([facility]) Start: 07-05-2023 Refill Carlos Herron MD Work Phone: [facility] Start: 07-05-2023 Telephone encounter Radha Alexandra DO Work Phone: [facility] Comment on above: Appointment (New Pat ient) Start: 06-22-2023 Orders Only Rubina Moore FOOD SERVICE DRIVER - SENIOR HEALTH PHYSICS TECHNICIAN Work Phone: [facility] Comment on above: Mixed Alzheimer's an d vascular dementia (HCC) (Primary Dx) Start: 06-20-2023 Orders Only Rubina Moore FOOD SERVICE DRIVER - SENIOR HEALTH PHYSICS TECHNICIAN Work Phone: [facility] Comment on above: Recurrent UTI (Prima ry Dx) Start: 05-04-2023 Orders Only Rubina Moore FOOD SERVICE DRIVER - SENIOR HEALTH PHYSICS TECHNICIAN Work Phone: [facility] Comment on above: Hematuria, unspecifi ed type; Leukocytes in urine Start: 03-24-2023 Refill Rubina Moore FOOD SERVICE DRIVER - SENIOR HEALTH PHYSICS TECHNICIAN Work Phone: [facility] Comment on above: Chronic pain of both feet; Osteoarthritis, unspecified osteoarthritis type, unspecified site Start: 03-16-2023 End: 03-16-2023 Office outpatient visit 25 minutes Rubina Moore FOOD SERVICE DRIVER - SENIOR HEALTH PHYSICS TECHNICIAN Work Phone: [facility] Comment on above: Mild episode of recu rrent major depressive disorder (HCC) (Primary Dx); Mixed hyperlipidemia; Dysuria; Urinary frequency; Essential hypertension, benign Start: 03-05-2023 End: 03-05-2023 ambulatory LYNETTE SANTIAGO Facility:[facility] Start: 03-05-2023 End: 03-05-2023 Patient encounter procedure Lynette Santiago Work Phone: Podiatry Comment on above: Diabetic polyneuropa thy associated with diabetes mellitus due to underlying condition (HCC) (Primary Dx); Callus of foot; Arthritis of foot Start: 01-29-2023 End: 01-29-2023 Patient encounter procedure Rubina Moore FOOD SERVICE DRIVER - SENIOR HEALTH PHYSICS TECHNICIAN Work Phone: [facility] Comment on above: Medicare annual well ness visit, subsequent (Primary Dx); Mixed Alzheimer's and vascular dementia (HCC); Type 2 diabetes mellitus without complication, without long-term current use of insulin ([facility]/HCC) (HCC); Encounter for diabetic foot exam (HCC); Atherosclerosis of coronary artery without angina pectoris, unspecified vessel or lesion type, unspecified whether [place] or transplanted heart; Essential hypertension, benign; Osteoarthritis, unspecified osteoarthritis type, unspecified site; Chronic pain of both feet; Mild episode of recurrent major depressive disorder (HCC); Mixed stress and urge urinary incontinence; Hematuria, unspecified type; Leukocytes in urine Start: 11-13-2022 End: 11-13-2022 Orders Only Rubina Moore FOOD SERVICE DRIVER - SENIOR HEALTH PHYSICS TECHNICIAN Work Phone: [facility] Comment on above: Unspecified fall, in itial encounter Unspecified fall, in itial encounter (Primary Dx) Start: 11-13-2022 End: 11-13-2022 Office outpatient visit 15 minutes Rubina Moore FOOD SERVICE DRIVER - SENIOR HEALTH PHYSICS TECHNICIAN Work Phone: [facility] Comment on above: Injury due to fall, initial encounter (Primary Dx); Pain in joint of right hip Start: 11-08-2022 Orders Only Rubina Moore FOOD SERVICE DRIVER - SENIOR HEALTH PHYSICS TECHNICIAN Work Phone: [facility] Comment on above: Leukocytes in urine (Primary Dx); Other microscopic hematuria Start: 10-31-2022 Refill Rubina Moore FOOD SERVICE DRIVER - SENIOR HEALTH PHYSICS TECHNICIAN Work Phone: [facility] Comment on above: Mild episode of recu rrent major depressive disorder (HCC) Start: 10-09-2022 Refill Carlos Herron MD Work Phone: [facility] Start: 09-27-2022 Orders Only Rubina Moore FOOD SERVICE DRIVER - SENIOR HEALTH PHYSICS TECHNICIAN Work Phone: [facility] Start: 07-10-2022 Refill Carlos Herron MD Work Phone: [facility] Start: 06-12-2022 Telephone encounter Katey Wiley [facility] Comment on above: Urinary Problem Start: 04-27-2022 End: 04-27-2022 Emergency department patient visit [facility] Start: 04-24-2022 Refill Rubina Moore FOOD SERVICE DRIVER - SENIOR HEALTH PHYSICS TECHNICIAN Work Phone: [facility] Start: 01-10-2021 End: 01-10-2021 Subsequent hospital visit by physician Kareem [facility] Work Phone: Radiology Comment on above: Rib injury [S29.9XXA ] Start: 10-21-2020 End: 10-21-2020 Evaluation and management of inpatient Nani Villareal MD Work Phone: [facility] Comment on above: Proctocolitis (Prima ry Dx); Leukocytosis, unspecified type Start: 07-23-2020 End: 07-23-2020 Subsequent hospital visit by physician Rubina Moore FOOD SERVICE DRIVER - SENIOR HEALTH PHYSICS TECHNICIAN Work Phone: [facility] Comment on above: Injury due to fall, initial encounter Start: 06-14-2020 End: 06-14-2020 Subsequent hospital visit by physician Yeyo Jackson Work Phone[facility] Start: 06-09-2020 End: 06-09-2020 Subsequent hospital visit by physician Yeyo Jackson Work Phone: [facility] Comment on above: Memory loss Start: 05-31-2020 End: 05-31-2020 Subsequent hospital visit by physician Yeyo Jackson Work Phone: [facility] Dept Procedures Date Procedure Procedure Detail Performing Clinician Start: 11-03-2024 Us retroperitoneal r eal time w/image complete Rey Rowan MD Work Phone: Start: 09-27-2024 Ct cervical spine w/ o contrast material Dayton Morin DO Work Phone: Start: 09-27-2024 Ct head/brain w/o co ntrast material Dayton Morin DO Work Phone: Start: 09-27-2024 Ecg routine ecg w/le ast 12 lds trcg only w/o i&r Dayton Morin DO Work Phone: Start: 08-03-2024 Urnls dip stick/tabl et reagent auto microscopy Dr. Carlos Herron MD Work Phone: Start: 08-03-[address] Marley Herron MD Work Phone: Start: 06-12-2024 Vitamin D, 25-hydrox y measurement Dr. Carlos Herron MD Work Phone: Comment on above: Vitamin D StatusDefi ciency: <20 ng/mL (50nmol/L)Insufficiency: 20-30 ng/mL (50-75 nmol/L)Sufficiency: 30-100 ng/mL (75-250 nmol/L)Toxicity: >100 ng/mL (>250 nmol/L) Start: 05-12-2024 Measurement of renal function Dr. Carlos Herron MD Work Phone: Comment on above: GFR Calc Start: 02-01-2024 Urnls dip stick/tabl et rgnt non-auto w/o micrscp Rubina Jett Oscar FOOD SERVICE DRIVER - SENIOR HEALTH PHYSICS TECHNICIAN Work Phone: Start: 11-09-2023 Urine albumin quantitative Rubina Jett Oscar FOOD SERVICE DRIVER - SENIOR HEALTH PHYSICS TECHNICIAN Work Phone: Start: 11-09-2023 Hemoglobin glycosylated a1c Rubina Jett Oscar FOOD SERVICE DRIVER - SENIOR HEALTH PHYSICS TECHNICIAN Work Phone: Start: 06-20-2023 Urnls dip stick/tabl et rgnt non-auto w/o micrscp Rubina Jett Oscar FOOD SERVICE DRIVER - SENIOR HEALTH PHYSICS TECHNICIAN Work Phone: Start: 03-16-2023 Urnls dip stick/tabl et rgnt non-auto w/o micrscp Rubina Jett Oscar FOOD SERVICE DRIVER - SENIOR HEALTH PHYSICS TECHNICIAN Work Phone: Start: 01-29-2023 Culture bacterial quanttative colony count urine Rubina Moore FOOD SERVICE DRIVER - SENIOR HEALTH PHYSICS TECHNICIAN Work Phone: Start: 01-29-2023 Urnls dip stick/tabl et rgnt non-auto w/o micrscp Rubina Moore FOOD SERVICE DRIVER - SENIOR HEALTH PHYSICS TECHNICIAN Work Phone: Start: 01-29-2023 Comprehensive metabo lic panel Rubina Moore FOOD SERVICE DRIVER - SENIOR HEALTH PHYSICS TECHNICIAN Work Phone: Start: 01-29-2023 Lipid panel Rubina Coker FOOD SERVICE DRIVER - SENIOR HEALTH PHYSICS TECHNICIAN Work Phone: Start: 06-12-2022 Urnls dip stick/tabl [...] - S tayla or Plasma Rubina Moore FOOD SERVICE DRIVER - SENIOR HEALTH PHYSICS TECHNICIAN Work Phone: Start: 01-10-2021 Radex ribs uni w/pos teroant ch minimum 3 views Shraddha Menjivar FOOD SERVICE DRIVER.SENIOR HEALTH PHYSICS TECHNICIAN Work Phone: Start: 10-21-2020 Computed tomography of abdomen and pelvis with contrast Nani Villareal MD Work Phone: Start: 10-21-2020 Comprehensive metabo lic panel Astrid PALMER Work Phone: Start: 10-21-2020 Ecg routine ecg w/le ast 12 lds w/i&r Astrid PALMER Work Phone: Start: 06-09-2020 Ct head/brain w/o co ntrast material Yeyo Jackson Work Phone: Start: 11-09-2016 End: 11-09-2016 Urinalysis nonauto w/o scope Kenyetta S Has tings [employer] Work Phone: Plan of Treatment Date Care Activity Detail Author Start: 08-08-2025 Diabetes: Estimated Glomerular Filtration Rate for Kidney Health Diabetes: Estimated Glomerular Filtration Rate for [facility] Start: 01-31-2025 COVID-19 Vaccine ( season) COVID-19 Vaccine () [facility] Comment on above: Postponed from 12/02/2023 (Patient Refus ed) Start: 01-31-2025 Diabetes: Estimated Glomerular Filtration Rate for Kidney Health Diabetes: Estimated Glomerular Filtration Rate for Kidney Health [facility] Start: 01-31-2025 DTaP/Tdap/Td Vaccines (1 - Tdap) DTaP/Tdap/Td Vaccines (1 - Tdap) [facility] Comment on above: Postponed from 04/03/2007 (Patient Refus ed) Start: 01-31-2025 Hepatitis B surface antibody level LDL Cholesterol [facility] Start: 01-31-2025 Pneumococcal Vaccine: 50+ Years (2 of 2 - PCV) Pneumococcal Vaccine: 50+ Years (2 of 2 - PCV) [facility] Comment on above: Postponed from 01/01/2021 (Patient Refus ed) Start: 01-31-2025 Pneumococcal Vaccine: 65+ Years (2 of 2 - PCV) Pneumococcal Vaccine: 65+ Years (2 of 2 - PCV) [facility] Comment on above: Postponed from 01/01/2021 (Patient Refus ed) Start: 01-31-2025 Screening for osteoporosis Bone Density Scan [facility] Comment on above: Postponed from 1940 (Patient Refus ed) Start: 01-31-2025 Zoster Vaccines (1 of 2) Zoster Vaccines (1 of 2) [facility] Comment on above: Postponed from 1990 (Patient Refus ed) Start: 12-01-2024 Influenza vaccination [facility] Start: 11-08-2024 Diabetes: Urine Albumin-Creatinine Ratio for Kidney Health Diabetes: Urine Albumin-Creatinine Ratio for Kidney Health [facility] Start: 11-08-2024 Hepatitis B screening Urine Albumin:Creatinine Ratio [facility] Start: 08-28-2024 End: 08-28-2024 Cysto w/insert ureteral [...] EDT - 08/28/2024 2:26 PM EDT Surgery [facility] [address] [place] [id number] Rey Rowan MD [address] [place] [address] LASER CYSTOURETHROSCOPY W/ URETEROSCOPY AND/OR PYELOSCOPY W/ LITHOTRIPSY MASTER [facility] Comment on above: LASER CYSTOURETHROSCOPY [...] physician 08/28/2024 12:30 PM EDT Hospital Encounter [facility] [address] [place] [id number] Rey Rowan MD [address] [place] [address] Renal calculus, left [N20.0] [facility] Comment on above: Renal calculus, left [N20.0] Start: 07-31-2024 Depression Monitoring Depression Monitoring [facility] Start: 07-31-2024 Hemoglobin A1c measurement HbA1C [facility] Start: 04-02-2024 Advance Directive Discussion Advance Directive Discussion [facility] Start: 04-02-2024 Medicare Advantage Annual Wellness Visit Medicare Advantage Annual Wellness Visit [facility] [employer] Start: 03-14-2024 RSV Immunization aged 60 or older (1 - 1-dose 60+ series) RSV Immunization aged 60 or older (1 - 1-dose 60+ series) [facility] [employer] Comment on above: Postponed from 2000 (Patient Refus ed) Start: 03-14-2024 RSV Immunization for Adults (1 - 1-dose 75+ series) RSV Immunization for Adults (1 - 1-dose 75+ series) [facility] [employer] Comment on above: Postponed from 2015 (Patient Refus ed) Start: 02-29-2024 Medicare Advantage Annual Wellness Visit (AWV) Medicare Advantage Annual Wellness Visit (AWV) [facility] [employer] Start: 02-01-2024 End: 01-31-2025 Bacteria identified in Urine by Culture Urine culture (clean catch) Microbiology Routine Recurrent UTI Expected: 02/01/2024 (Approximate), Expires: 01/31/2025 [facility] [employer] Comment on above: Expected: 02/01/2024 (Approximate), Expi res: 01/31/2025 Start: 02-01-2024 End: 01-31-2025 CBC panel - Blood by Automated count CBC Lab Routine Mixed Alzheimer's and vascular dementia (HCC) Osteoarthritis, unspecified osteoarthritis type, unspecified site Urinary frequency Screening for deficiency anemia Expected: 02/01/2024 (Approximate), Expires: 01/31/2025 [facility] [employer] Comment on above: Expected: 02/01/2024 (Approximate), Expi res: 01/31/2025 Start: 02-01-2024 End: 01-31-2025 Comprehensive metabolic 1998 panel - Serum or Plasma Comprehensive metabolic panel Lab Routine Type 2 diabetes mellitus without complication, without long-term current use of insulin (CMS/HCC) (HCC) Diabetic polyneuropathy associated with diabetes mellitus due to underlying condition (CMS/HCC) (HCC) Atherosclerosis of coronary artery of [place] heart without angina pectoris, unspecified vessel or lesion type Essential hypertension, benign Mixed hyperlipidemia Mixed Alzheimer's and vascular dementia (HCC) Osteoarthritis, unspecified osteoarthritis type, unspecified site Chronic pain of both feet Mild episode of recurrent major depressive disorder (HCC) Recurrent UTI Mixed stress and urge urinary incontinence Overactive bladder Urinary frequency Expected: 02/01/2024 (Approximate), Expires: 01/31/2025 [facility] Work Phone: Comment on above: Expected: 02/01/2024 (Approximate), Expi res: 01/31/2025 Start: 02-01-2024 End: 01-31-2025 Hemoglobin A1c measurement Hemoglobin A1c Lab Routine Type 2 diabetes mellitus without complication, without long-term current use of insulin (CMS/HCC) (HCC) Diabetic polyneuropathy associated with diabetes mellitus due to underlying condition (CMS/HCC) (HCC) Expected: 02/01/2024 (Approximate), Expires: 01/31/2025 [facility] Comment on above: Expected: 02/01/2024 (Approximate), Expi res: 01/31/2025 Start: 02-01-2024 End: 01-31-2025 Lipid 1996 panel - Serum or Plasma Lipid panel Lab Routine Mixed hyperlipidemia Expected: 02/01/2024 (Approximate), Expires: 01/31/2025 [facility] Comment on above: Expected: 02/01/2024 (Approximate), Expi res: 01/31/2025 Start: 02-01-2024 End: 02-01-2024 Patient encounter procedure [facility] Start: 01-30-2024 COVID-19 Vaccine (#1) COVID-19 Vaccine (#1) [facility] Comment on above: Postponed from 1940 (Patient Refus ed) Start: 01-30-2024 COVID-19 Vaccine () COVID-19 Vaccine () [facility] Comment on above: Postponed from 12/01/2022 (Patient Refus ed) Start: 01-30-2024 DTaP/Tdap/Td Vaccines (1 - Tdap) DTaP/Tdap/Td Vaccines (1 - Tdap) [facility] Comment on above: Postponed from 04/03/2007 (Patient Refus ed) Start: 01-30-2024 Hepatitis B surface antibody level LDL Cholesterol [facility] Start: 01-30-2024 Hepatitis B Vaccines (1 of 3 - Risk 3-dose series) Hepatitis B Vaccines (1 of 3 - Risk 3-dose series) [facility] Comment on above: Postponed from 2000 (Patient Refus ed) Start: 01-30-2024 Pneumococcal Vaccine: 65+ Years (2 - PCV) Pneumococcal Vaccine: 65+ Years (2 - PCV) [facility] Comment on above: Postponed from 01/01/2021 (Patient Refus ed) Start: 01-30-2024 Pneumococcal Vaccine: 65+ Years (2 of 2 - PCV) Pneumococcal Vaccine: 65+ Years (2 of 2 - PCV) [facility] Comment on above: Postponed from 01/01/2021 (Patient Refus ed) Start: 01-30-2024 Screening for osteoporosis Bone Density Scan [facility] Comment on above: Postponed from 1940 (Patient Refus ed) Start: 01-30-2024 Zoster Vaccines (1 of 2) Zoster Vaccines (1 of 2) [facility] Comment on above: Postponed from 1990 (Patient Refus ed) Start: 01-25-2024 Depression Monitoring Depression Monitoring [facility] Start: 12-02-2023 COVID-19 Vaccine ( season) COVID-19 Vaccine ( season) [facility] Start: 12-02-2023 Covid-19 Vaccine ( season) Covid-19 Vaccine ( season) [facility] Start: 12-02-2023 Influenza vaccination Influenza Vaccine (#1) [facility] Start: 11-09-2023 End: 11-08-2024 Microalbumin/Creatinine panel in random Urine Microalbumin / creatinine urine ratio Lab Routine Type 2 diabetes mellitus without complication, without long-term current use of insulin (CMS/HCC) (HCC) Diabetic polyneuropathy associated with diabetes mellitus due to underlying condition ([facility]/HCC) (HCC) Expected: 11/09/2023 (Approximate), Expires: 11/08/2024 [facility] Work Phone: Comment on above: Expected: 11/09/2023 (Approximate), Expi res: 11/08/2024 Start: 11-09-2023 End: 11-09-2023 Patient encounter procedure 11/09/2023 10:40 AM EDT Office Visit [facility] Medicine [address] [place] [address] [place] [address] Rubina Moore, FOOD SERVICE DRIVER - SENIOR HEALTH PHYSICS TECHNICIAN [address] [facility] [place] [id number] [facility] Start: 09-30-2023 Influenza vaccination Influenza Vaccine (#1) [facility] Comment on above: Postponed from 12/01/2022 (Patient Refus ed) Start: 09-18-2023 End: 09-18-2023 Patient encounter procedure 09/18/2023 3:45 PM EDT Office Visit [facility] [address] [place] [address] [phone] Nadia Barragan FOOD SERVICE DRIVER - SENIOR HEALTH PHYSICS TECHNICIAN [address] [place] [address] Ashlee Barnhart FOOD SERVICE DRIVER - SENIOR HEALTH PHYSICS TECHNICIAN [address] [place] [address] [facility] Start: 09-15-2023 Depresssion Monitoring Depresssion Monitoring [facility] Start: 08-03-2023 End: 08-03-2023 Patient encounter procedure 08/03/2023 10:40 AM EDT Office Visit [facility] [address] [place] [address] [place] [address] Rubina Moore, FOOD SERVICE DRIVER - SENIOR HEALTH PHYSICS TECHNICIAN [address] [place] [address] [place] [address] [facility] Start: 07-31-2023 Depresssion Monitoring Depresssion Monitoring [facility] Start: 07-31-2023 Hemoglobin A1c measurement HbA1C [facility] Start: 07-31-2023 Hemoglobin A1c/Hemoglobin.total in Blood HbA1C [facility] Start: 07-26-2023 End: 07-26-2023 Patient encounter procedure 07/26/2023 2:45 PM EDT Office Visit [facility] [address] [place] [id number] Nadia Barragan FOOD SERVICE DRIVER - SENIOR HEALTH PHYSICS TECHNICIAN [address] [place] [address] [facility] Start: 06-20-2023 End: 06-19-2024 Bacteria identified in Urine by Culture Urine culture (clean catch) Microbiology Routine Recurrent UTI Expected: 06/20/2023 (Approximate), Expires: 06/19/2024 [facility] Work Phone: Comment on above: Expected: 06/20/2023 (Approximate), Expi res: 06/19/2024 Start: 04-02-2023 Advance Directive Discussion Advance Directive Discussion [facility] Start: 04-02-2023 Medicare [facility] Annual Wellness Visit Medicare [facility] Annual Wellness Visit [facility] Start: 03-16-2023 End: 03-16-2024 Bacteria identified in Urine by Culture Urine culture Microbiology Routine Dysuria Urinary frequency Expected: 03/16/2023 (Approximate), Expires: 03/16/2024 [facility] Work Phone: Comment on above: Expected: 03/16/2023 (Approximate), Expi res: 03/16/2024 Start: 03-16-2023 End: 03-16-2023 Patient encounter procedure 03/16/2023 8:00 AM EST Office Visit [facility] [address] [place] [address] [place] [address] Rubina Moore, FOOD SERVICE DRIVER - SENIOR HEALTH PHYSICS TECHNICIAN [address] [facility] [place] [address] [facility] Start: 01-29-2023 End: 01-30-2024 Microalbumin/Creatinine panel in random Urine Microalbumin / creatinine urine ratio Lab Routine Type 2 diabetes mellitus without complication, without long-term current use of insulin ([facility]/HCC) (HCC) Expected: 01/29/2023 (Approximate), Expires: 01/30/2024 [employer] Work Phone: Comment on above: Expected: 01/29/2023 (Approximate), Expi res: 01/30/2024 Start: 01-29-2023 End: 01-29-2023 Patient encounter procedure [facility] Start: 01-27-2023 Lipid panel Lipid Panel [facility] Start: 12-01-2022 Influenza vaccination [facility] Start: 11-13-2022 End: 11-14-2023 XR Hip - right Views XR hip 4+ views right Imaging Routine Injury due to fall, initial encounter Pain in joint of right hip Expected: 11/13/2022, Expires: 11/14/2023 [employer] Work Phone: Comment on above: Expected: 11/13/2022, Expires: Start: 11-08-2022 End: 11-09-2023 Bacteria identified in Urine by Culture Urine culture (clean catch) Microbiology Routine Leukocytes in urine Other microscopic hematuria Expected: 11/08/2022 (Approximate), Expires: 11/09/2023 [employer] Work Phone: Comment on above: Expected: 11/08/2022 (Approximate), Expi res: 11/09/2023 Start: 07-31-2022 End: 07-31-2022 Patient encounter procedure [facility] Start: 04-29-2022 Hemoglobin A1c measurement Diabetes: Hemoglobin A1C [facility] Start: 04-02-2022 Advance Directive Discussion Advance Directive Discussion [facility] Start: 04-02-2022 Depression Assessment Depression Assessment [facility] Start: 01-26-2022 Hepatitis B screening Urine Albumin:Creatinine Ratio [facility] Start: 01-26-2022 Urine screening for protein Diabetes: Urine Protein Screening [facility] Start: 12-01-2021 Influenza vaccination Influenza Vaccine (#1) [facility] Start: 10-21-2021 Creatinine measurement Creatinine monitoring [facility] Work Phone: Start: 10-21-2021 Potassium monitoring Potassium monitoring [facility] Work Phone: Start: 06-11-2021 COVID-19 Vaccine (1) COVID-19 Vaccine (1) [facility] Work Phone: Comment on above: Postponed from 1956 (Patient Refus ed) Postponed from 04/16 (Patient Refused) Start: 03-18-2021 Lipid panel Lipid screen [facility] Work Phone: Start: 01-01-2021 Creatinine measurement Creatinine monitoring [facility] Work Phone: Start: 01-01-2021 DTaP/Tdap/Td vaccine (1 - Tdap) DTaP/Tdap/Td vaccine (1 - Tdap) [facility] Work Phone: Comment on above: Postponed from 1959 (Patient Refus ed) Postponed from 04/03 (Patient Refused) Start: 01-01-2021 Pneumococcal Vaccine: 50+ (2 of 2 - PCV) Pneumococcal Vaccine: 50+ (2 of 2 - PCV) [facility] Start: 01-01-2021 Pneumococcal Vaccine: 65+ (2 - PCV) Pneumococcal Vaccine: 65+ (2 - PCV) [facility] Start: 01-01-2021 Pneumococcal Vaccine: 65+ (2 of 2 - PCV) Pneumococcal Vaccine: 65+ (2 of 2 - PCV) [facility] Start: 01-01-2021 Pneumococcal Vaccine: 65+ Years (2 - PCV) Pneumococcal Vaccine: 65+ Years (2 - PCV) [facility] Start: 01-01-2021 Pneumococcal Vaccine: 65+ Years (2 of 2 - PCV) Pneumococcal Vaccine: 65+ Years (2 of 2 - PCV) [facility] Start: 01-01-2021 Potassium monitoring Potassium monitoring [employer] Work Phone: Start: 01-01-2021 Screening for osteoporosis DEXA (modify frequency per FRAX score) [facility] Work Phone: Comment on above: Postponed from 1995 (Patient Refus ed) Start: 01-01-2021 Shingles Vaccine (1 of 2) Shingles Vaccine (1 of 2) [facility] Work Phone: Comment on above: Postponed from 1990 (Patient Refus ed) Start: 12-17-2020 End: 12-17-2020 Office Visit 12/17/2020 Office Visit Family Medicine Rubina Moore, FOOD SERVICE DRIVER - SENIOR HEALTH PHYSICS TECHNICIAN [address] [place] [address] [phone] [facility] Start: 12-01-2020 Influenza vaccination Flu vaccine (#1) [facility] Work Phone: Start: 10-28-2020 End: 10-28-2020 Patient encounter procedure 10/28/2020 Procedure visit Geriatric Medicine [facility] Start: 06-14-2020 End: 06-14-2020 Office Visit 06/14/2020 Office Visit Geriatric Medicine Yeyo Jackson MD [address] [place] [address] [phone] [facility] Start: 06-11-2020 End: 06-11-2020 Office Visit 06/11/2020 Office Visit Family Medicine Rubina Moore, FOOD SERVICE DRIVER - SENIOR HEALTH PHYSICS TECHNICIAN [address] [place] [address] [phone] [facility] Start: 06-01-2020 3 comp foot exam completed Diabetic Foot Exam [facility] Start: 06-01-2020 Diabetic foot examination Diabetic Foot Exam [facility] Start: 02-18-2020 Glaucoma screening Dilated Retinal Exam [facility] Start: 02-18-2020 Hepatitis C antibody, confirmatory test Dilated Retinal Exam [facility] Start: 01-02-2020 Annual Wellness Visit (AWV) Annual Wellness Visit (AWV) [facility] Work Phone: Start: 11-09-2016 End: 11-09-2016 Appointment Appointment [facility] Start: 11-09-2016 End: 11-09-2016 *CUUID - Urine RAHEEL Culture - Identificatn *CUUID - Urine RAHEEL Culture - Identificatn [facility] Start: 2015 RSV Immunization for Adults (1 - 1-dose 75+ series) RSV Immunization for Adults (1 - 1-dose 75+ series) [facility] Start: 2015 RSV Vaccine (1 - 1-dose 75+ series) RSV Vaccine (1 - 1-dose 75+ series) [facility] Start: 04-03-2007 DTaP/Tdap/Td Vaccines (1 - Tdap) DTaP/Tdap/Td Vaccines (1 - Tdap) [facility] Start: 04-03-2007 Urine microalbumin profile DTaP,Tdap,Td Vaccine (1 - Tdap) [facility] Start: 2005 Bone Density Screening Bone Density Screening [facility] Start: 2005 Screening for osteoporosis Bone Density Screening [facility] Start: 2000 RSV Vaccine (1 - 1-dose 60+ series) RSV Vaccine (1 - 1-dose 60+ series) [facility] Start: 1990 Shingrix Vaccine (1 of 2) Shingrix Vaccine (1 of 2) [facility] Start: 1990 Zoster Vaccines (1 of 2) Zoster Vaccines (1 of 2) [facility] Start: 1958 Anxiety Screening Anxiety Screening [facility] Start: 1958 Depression Screening Depression Screening [facility] Start: 1956 COVID-19 Vaccine (1 of 2) COVID-19 Vaccine (1 of 2) [facility] Work Phone: Start: 1952 Depresssion Monitoring Depresssion Monitoring [facility] Start: 1950 Diabetic foot examination Diabetes: Foot Exam [facility] Start: 1950 Glaucoma screening Diabetes: Retinopathy Screening [facility] Start: 1950 Preventive dental service Diabetes: Dental Exam [facility] Start: 1940 COVID-19 Vaccine (#1) COVID-19 Vaccine (#1) [facility] Start: 1940 Hepatitis B Vaccines (1 of 3 - 3-dose series) Hepatitis B Vaccines (1 of 3 - 3-dose series) [facility] Start: 1940 Screening for osteoporosis Bone Density Scan [facility] End: 10-24-2020 Basic metabolic 2000 panel - Serum or Plasma Basic Metabolic Panel Lab Routine Daily for 3 Occurrences starting 10/22/2020 until 10/24/2020 [employer] Work Phone: Comment on above: Daily for 3 Occurrences starting 021 until 10/24/2020 End: 10-24-2020 CBC W Auto Differential panel - Blood CBC auto differential Lab Routine Daily for 3 Occurrences starting 10/22/2020 until 10/24/2020 [employer] Work Phone: Comment on above: Daily for 3 Occurrences starting 021 until 10/24/2020 End: 10-21-2020 Culture, Blood 2 Culture, Blood 2 Microbiology STAT One Time for 1 Occurrences starting 10/21/2020 until 10/21/2020 [facility] Work Phone: Comment on above: One Time for 1 Occurrences starting 10/01 until 10/21/2020 Culture, Blood 2 Culture, Blood 2 Microbiology STAT 10/21/2020 4:53 PM EDT [employer] Work Phone: EKG 12 Lead - Chest Pain EKG 12 Lead - Chest Pain ECG STAT 10/21/2020 1:51 PM EDT [employer] Work Phone: End: 10-21-2020 Gastrointestinal Panel, Molecular Gastrointestinal Panel, Molecular Microbiology Routine One Time for 1 Occurrences starting 10/21/2020 until 10/21/2020 [facility] Work Phone: Comment on above: One Time for 1 Occurrences starting 10/01 until 10/21/2020 End: 10-21-2020 Glucose [Mass/volume] in Serum or Plasma POCT GLUCOSE Point of Care Testing STAT One Time for 1 Occurrences starting 10/21/2020 until 10/21/2020 [facility] Work Phone: Comment on above: One Time for 1 Occurrences starting 10/01 until 10/21/2020 End: 10-21-2020 Microscopic examination of blood, culture Culture, Blood Microbiology STAT One Time for 1 Occurrences starting 10/21/2020 until 10/21/2020 [facility] Work Phone: Comment on above: One Time for 1 Occurrences starting 10/01 until 10/21/2020 Microscopic examinat ion of blood, culture Culture, Blood Microbiology STAT 10/21/2020 4:53 PM EDT [facility] Work Phone: OUTSIDE PROCEDURE SCAN OUTSIDE P ROCEDURE SCAN Procedures Ordered: 11/13/2022 [facility] [employer] [facility] Comment on above: Ordered: 11/13/2022 Oxygen therapy [Mini [facility] Data Set] Initiate Oxygen Therapy Protocol Respiratory Care Routine Daily until discontinued starting 10/21/2020 [facility] Work Phone: Comment on above: Daily until discontinued starting 2020 Patient Education Using an Incen tive Spirometer ED Chest Wall Contusion ED Bruise, Rib [facility] Work Phone: Patient referral [facility] Work Phone: End: 10-21-2020 Urinalysis Urinalysis Lab STAT One Time for 1 Occurrences starting 10/21/2020 until 10/21/2020 [employer] Work Phone: Comment on above: One Time for 1 Occurrences starting 10/01 until 10/21/2020 XR Abdomen Supine an d Upright XR ABDOMEN 1V SUPINE Radiology Routine Left ureteral stone 11/03/2024 10:16 AM EDT [facility] Work Phone: End: 11-13-2022 XR Hip - right 3 Views [facility] [employer] Work Phone: Comment on above: Once for 1 Occurrences starting 11/14/19 until 11/13/2022 End: 07-23-2020 XR WRIST BILATERAL 3 VW XR WRIST BILATERAL 3 VW Imaging Routine Injury due to fall, initial encounter 1 Occurrences starting 07/23/2020 until 07/23/2020 [employer] Work Phone: Comment on above: 1 Occurrences starting 07/23/2020 until 07/23/2020 XR Wrist Bilateral Minimum 3 VW XR Wrist Bilateral Minimum 3 VW Imaging Routine Injury due to fall, initial encounter 07/23/2020 2:37 PM EDT [facility] Work Phone: Immunizations Immunization Date Immunization Notes Care Provider Fa cilidoni 01-02-2020 Influenza, High-dose , Quadv, 65 yrs +, IM (Fluzone) Yeyo Armasight [facility] [employer] 01-02-2020 pneumococcal polysaccharide vaccine, 23 valent [facility]o [employer] [facility] [employer] 01-02-2020 influenza virus vacc ine, unspecified formulation Rubina Oscar FOOD SERVICE DRIVER - SENIOR HEALTH PHYSICS TECHNICIAN Work Phone: [facility] [employer] 04-02-2007 Td, unspecified formulation [employer] Work Phone: 04-02-2007 tetanus and diphther ia toxoids, adsorbed, preservative free, for adult use (2 Lf of tetanus toxoid and 2 Lf of diphtheria toxoid) Rubina Moore FOOD SERVICE DRIVER - SENIOR HEALTH PHYSICS TECHNICIAN Work Phone: [facility] [employer] Payers Date Payer Category Payer Medicaid [facility] MEDIC [facility] [id number] 2024 Medicaid [id number] 2024 Self-pay 2021 Medicare HMO [employer] MEDICARE [id number] 2019 Medicare [employer] MEDICARE A ETNA MEDICARE-ADVANTAGE PPO [id number] 2019-Present [address] [place] [address] Medicare [id number] 2011 Medicare [id number] 2011 Medicare (Managed Care) [employer] [place] [id number] 2011 Private Health Insurance 101 [id number] Unknown [id number] Unknown [id number] Unknown [id number] Unknown [id number] Unknown [id number] Unknown [id number] Unknown [id number] Unknown [id number] Unknown 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 [employer] Work Phone: Start: 08-18-2020 History 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 [employer] Work Phone: Start: 04-27-2022 Tobacco smoking status NHIS Unknown if ever smoked [facility] Start: 09-19-2013 None [facility] Start: 09-19-2013 Spouse/ Significant Other [facility] Start: 1940 Sex Assigned At Female [facility] Start: 03-29-2022 End: 03-05-2023 History of Social function [facility] Start: 03-29-2022 End: 03-05-2023 Tobacco use panel [facility] Within the last year , have you been afraid of your partner or ex-partner? No [facility] Do you belong to any clubs or organizations such as muslim groups, unions, fraternal or athletic groups, or school groups? Yes [facility] Are you now , , , , never or living with a partner? [facility] How often to you hav e a drink containing alcohol? Never [facility] How many standard dr inks containing alcohol do you have on a typical day? Patient does not drink [facility] Do you feel stress - tense, restless, nervous, or anxious, or unable to sleep at night because your mind is troubled all the time - these days [OSQ] Only a little [facility] (I/We) worried whekenrick er (my/our) food would run out before (I/we) got money to buy more. Never true [facility] [employer] Start: 12-15-2019 Gender identity Identifies as female gender (finding) [facility] Start: 12-15-2019 Sexual orientation Heterosexual (finding) [facility] Start: 12-11-2020 End: 01-10-2021 Exposure to SARS-CoV-2 (event) Unable to assess [facility] [facility] Start: 10-31-2021 End: 07-04-2024 Sex Female (finding) [facility] Medical Equipment Procedure Code Equipment Code Equipment Origin al Text Equipment Identifier Dates [id number] Start: 07-01-2018 End: 01-29-2023 Comment on above: Test 2 times daily, Insulin Dep? No E11.9 DM 2 Test Two times a day . Insulin Dep? No E11.9 DM 2 Sling Gynecare T vt Exact Gynecological Stress Urinary Incontinence - [id number] Start: 02-02-2016 Test two times a day & as needed for symptoms of irregular blood glucose. [id number] Start: 01-29-2023 Test 2 times rosa ly, Insulin Dep? No E11.9 DM 2 [id number] Start: 07-01-2018 Test Two times a day. Insulin Dep? No E11.9 DM 2 [id number] Start: 07-01-2018 Goals Date Patient Goal Desired [...] serious difficulty hearing No 08/08/2024 2:46 PM Elizabet Castaneda, INDIRA No [facility] 08-08-2024 Are you blind, or do you have serious difficulty seeing, even when wearing glasses No 08/08/2024 2:46 PM Elizabet Castaneda, INDIRA No [facility] 08-08-2024 Do you have serious difficulty walking or climbing stairs Yes 08/08/2024 2:46 PM Elizabet Castaneda, RN Yes [facility] 08-08-2024 Do you have difficul ty dressing or bathing Yes 08/08/2024 2:46 PM EDT Elizabet Lackey, RN Yes [facility] 08-08-2024 Because of a physica l, mental, or emotional condition, do you have difficulty doing errands alone such as visiting a physician's office or shopping Yes 08/08/2024 2:46 PM EDT Elizabet Lackey, INDIRA Yes [facility] Mental Status Date Assessment Result Facility 08-08-2024 Because of a physica l, mental, or emotional condition, do you have serious difficulty concentrating, remembering, or making decisions Yes 08/08/2024 2:46 PM EDT Elizabet Lackey, INDIRA Yes [facility] Clinical Notes 01-10-2021 to 09-27-2024 Brenda Dalton RN - 09/27/2024 7:26 PM Audra Dalton RN - 09/27/2024 7:26 PM Philip Lancaster RN - 09/27/2024 6:45 PM Philip Lancaster RN - 09/27/2024 6:38 PM EDT Note Date & Type Note Facility 09-27-2024 Emergency department Note RN sat with pt as a sitter because she is her fall risk and a wanderer. [facility] 09-27-2024 Emergency department Note RN sat with pt as a sitter because she is her fall risk and a wanderer. Trying to swing legs over the siderail to look for shoes-yelling that we took her shoes (did not come with shoes). Attempted to call report to [facility] but no one answered. Pt continues to try and get out of bed and yelling that wants to drive home. Advised that is waiting on ambulance to take her home Sitting up in bed taking PO fluids well. Agitated-mad that left, we won't bring her daughter back (no daughter here) and that she's been waiting for 4 hours (not even 2). States came here after work and wants to just walk home because has to go back to work later. Pt sitting up in bed agitated and confused. Aware that is waiting for ambulance to pick her up. RN sitting at bedside Pt's rehabilitation supervisor light-states he fell asleep at the bedside and woke up to patient standing at bedside. Pt returned to bed-oriented to self only. Advised that is being discharged but [facility] States "she gets more confused and nasty at night-good luck" and left. To radiology via stretcher Spouse at bedside-states patient "seems normal to me". Aware that will get EKG and radiology studies here EMERGENCY DEPARTMENT ENCOUNTER Pt Name: Cj Gillis Birthdate 1940 Date of evaluation: 09/27/2024 ED Provider: Dayton Morin DO CHIEF COMPLAINT Chief Complaint Patient presents with Other HISTORY OF PRESENT ILLNESS (Location/Symptom, Timing/Onset, Context/Setting, Quality, Duration, Modifying Factors, Severity) Note limiting factors. HPI Cj Gillis is a 84 y.o. female who presents to the emergency department after being found facedown in a different bed in a different room at her detention today. Unknown whether she fell, this was unwitnessed. She denies falling but has advanced dementia and is not answering any questions correctly for paramedics. They have not noted any injuries or deficits. DNR CCA paperwork is with her at the bedside. She is not on anticoagulants. Family has been notified that she was coming here. Blood sugar normal and route. Has not been complaining of pain or acting differently per the detention staff report to the medics. Nursing Notes were reviewed. REVIEW OF SYSTEMS All systems reviewed and negative except as noted above. PAST MEDICAL HISTORY Medical History[1] SURGICAL HISTORY Surgical History[2] CURRENT MEDICATIONS Previous Medications ACETAMINOPHEN (TYLENOL) 500 MG TABLET Take 500 mg by mouth in the morning and 500 mg before bedtime. ASPIRIN 325 MG TABLET Take 325 mg by mouth in the morning. CHOLECALCIFEROL (VITAMIN D3) 125 MCG (5000 UT) TABLET DISPERSIBLE Take 125 mcg by mouth daily. DIPHENHYDRAMINE (BENADRYL) 12.5 MG CHEWABLE TABLET Chew 12.5 mg every 8 hours as needed for itching (hives- take with Prednisone). DULOXETINE HCL 30 MG CAPSULE DELAYED RELEASE SPRINKLE Take 60 mg by mouth daily. ENALAPRIL (VASOTEC) 10 MG TABLET TAKE ONE-HALF (1/2) TABLET DAILY FAMOTIDINE (PEPCID) 20 MG TABLET TAKE 1 TABLET DAILY GLUCOSE BLOOD (BLOOD GLUCOSE TEST) STRIP Test two times a day & as needed for symptoms of irregular blood glucose. JANUVIA 100 MG TABLET TAKE 1 TABLET DAILY LOPERAMIDE (IMODIUM A-D) 2 MG TABLET Take 2 mg by mouth as needed for diarrhea (not to exceed 8mg/day). LORATADINE (CLARITIN) 10 MG TABLET TAKE 1 TABLET DAILY METFORMIN XR (GLUCOPHAGE-XR) 500 MG 24 HR TABLET Take 2 tablets (1,000 mg) by mouth 2 times daily. METOPROLOL SUCCINATE XL (TOPROL-XL) 25 MG 24 HR TABLET Take 0.5 tablets (12.5 mg) by mouth daily. Do not crush or chew. PREDNISONE (DELTASONE) 20 MG TABLET Take 1 tablet by mouth once daily as needed for hives. ALLERGIES Hydrocodone-acetaminophen, Celecoxib, Morphine, Rofecoxib, and Statins FAMILY HISTORY Family History[3] SOCIAL HISTORY Social History[4] PHYSICAL EXAM ED Triage Vitals [09/27/24 1659] Temp Pulse Resp BP 36.7 C (98 F) -- 14 -- SpO2 Temp Source Heart Rate Source Patient Position -- Temporal -- -- BP Location FiO2 (%) -- -- General: Thin but well-developed elderly patient lying in bed who appears non-toxic. Head: Atraumatic, normocephalic. No signs of basilar skull fracture. Eyes: No ocular trauma. EOMI. No proptosis. ENT: No facial or dental trauma. Neck: No cervical midline tenderness. No stepoff, crepitus, ecchymosis or deformity. Back: No midline tendernes. No stepoff, crepitus, ecchymosis or deformity. Chest: Non-tender, no crepitus, ecchymosis or deformity. Heart: Regular rate and rhythm. Lungs: Clear to auscultation bilaterally. Normal respiratory pattern without respiratory distress. Abdomen: Soft, non-tender, non-distended, no guarding or peritoneal signs. Pelvis: Stable, non-tender. Neurologic: Awake and alert, nonverbal for me. Pupils equal. Moves all extremities equally well. Psychiatric: Unable to assess. Skin: Warm and dry, no lacerations. Musculoskeletal: Extremities atraumatic x 4. All long bones palpated, all joints put through passive range of motion without pain or crepitus. DIAGNOSTIC RESULTS/EMERGENCY DEPARTMENT COURSE and DIFFERENTIAL DIAGNOSIS/MDM: Vitals: Vitals: 09/27/24 1659 09/27/24 1700 BP: (!) 139/43 Pulse: 74 Resp: 14 Temp: 36.7 C (98 F) TempSrc: Temporal SpO2: 98% Weight: 54.4 kg (120 lb) Height: 1.626 m (5' 4") EKG: EKG was reviewed by myself. Physician EKG interpretation can be found in [facility]. LABS: Labs Reviewed - No data to display All other labs were within normal range or not returned as of this dictation. 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 ECG/medicine tests: ordered. History obtained from paramedics. Records reviewed include CT of the head which showed severe atrophy but no acute intracranial hemorrhage. Diagnostic interpretations performed by me in the ED include CT of the head which shows severe atrophy but no acute ICH. Social determinants of health affecting the patient's diagnosis and disposition include her residence at a detention with supervision. Management discussed with with her son who arrived after my initial evaluation. Medications administered in the ED include those listed below. Clinical impression: Possible fall; Alzheimer's dementia, late stage Patient was discharged with return precautions, instructions for outpatient follow up. Interpretation per the Radiologist below, if available at the time of this note: CT cervical spine wo IV contrast Final Result Diminished cerebral volume and evidence of chronic microvascular ischemic change without acute intracranial abnormality. CT CERVICAL SPINE: TECHNIQUE: Transaxial sequence through the cervical spine. Coronal and sagittal reconstructions included. Dose reduction was employed with automated exposure control. COMPARISON: None FINDINGS: Cervical vertebrae and joints: No fracture, subluxation or other malalignment. Minor facet hypertrophy noted greater on the left than the right. Osteopenia is noted. No bone lesion identified. Intervertebral disc spaces and spinal canal: Spurring and disc space narrowing from C3-C4 through C7-T1. No bony encroachment upon the cervical spinal canal. Soft tissues: Surrounding soft tissues of the neck are unremarkable on this noncontrast examination.. Other: Lung apices are unremarkable. IMPRESSION: No acute abnormality identified throughout the cervical spine. Cervical spondylosis Report Dictated on Electronically Signed By: Kwame Urban MD Electronically Signed Date/Time: 09/27/2024 5:[address] head wo IV contrast Final Result Diminished cerebral volume and evidence of chronic microvascular ischemic change without acute intracranial abnormality. CT CERVICAL SPINE: TECHNIQUE: Transaxial sequence through the cervical spine. Coronal and sagittal reconstructions included. Dose reduction was employed with automated exposure control. COMPARISON: None FINDINGS: Cervical vertebrae and joints: No fracture, subluxation or other malalignment. Minor facet hypertrophy noted greater on the left than the right. Osteopenia is noted. No bone lesion identified. Intervertebral disc spaces and spinal canal: Spurring and disc space narrowing from C3-C4 through C7-T1. No bony encroachment upon the cervical spinal canal. Soft tissues: Surrounding soft tissues of the neck are unremarkable on this noncontrast examination.. Other: Lung apices are unremarkable. IMPRESSION: No acute abnormality identified throughout the cervical spine. Cervical spondylosis Report Dictated on Electronically Signed By: Kwame Urban MD Electronically Signed Date/Time: 09/27/2024 5:54 PM EDT Medications - No data to display PROCEDURES: Unless otherwise noted below, none Procedures FINAL IMPRESSION 1. Encounter for examination following a fall 2. Severe Alzheimer's dementia without behavioral disturbance, psychotic disturbance, mood disturbance, or anxiety, unspecified timing of dementia onset (HCC) PATIENT REFERRED TO: Carlos Herron MD [address] [place] [address], [facility] [id number] Schedule an appointment as soon as possible for a visit DISCHARGE MEDICATIONS: New Prescriptions No medications on file (Comment: Please note this report has been produced using speech recognition software and may contain errors related to that system including errors in grammar, punctuation, and spelling, as well as words and phrases that may be inappropriate. 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 TB (pulmonary tuberculosis) 1958 [2] Past Surgical History: Procedure Laterality Date BLADDER SUSPENSION 1999 BLADDER SUSPENSION 2016 05, CHOLECYSTECTOMY KNEE ARTHROPLASTY Bilateral 1999 TOTAL ABDOMINAL HYSTERECTOMY [3] Family History Problem Relation Name Age of Onset Lung cancer Mother Depression Mother High Blood Pressure Father Hyperlipidemia Father High Blood Pressure Mother Hearing loss Father Heart attack Father Heart disease Father Coronary artery disease Father [4] Social History Socioeconomic History Marital status: Tobacco Use Smoking status: Never Smokeless tobacco: Never Vaping Use Vaping status: Never Used Substance and Sexual Activity Alcohol use: No Drug use: No Sexual activity: Defer Social Drivers of Health Financial Resource Strain: Low Risk (01/29/2023) Overall Financial Resource Strain (CARDIA) Difficulty of Paying Living Expenses: Not hard at all Food Insecurity: Patient Unable To Answer (08/07/2024) Received from [facility] Hunger Vital Sign Worried About Running Out of Food in the Last Year: Patient unable to answer Ran Out of Food in the Last Year: Patient unable to answer Transportation Needs: Patient Unable To Answer (08/07/2024) Received from [facility] PRAPARE - Transportation Lack of Transportation (Medical): Patient unable to answer Lack of Transportation (Non-Medical): Patient unable to answer Physical Activity: Sufficiently Active (01/29/2023) Exercise Vital Sign Days of Exercise per Week: 7 days Minutes of Exercise per Session: 60 min Stress: No Stress Concern Present (01/29/2023) [employer] - Occupational Stress Questionnaire Feeling of Stress : Only a little Social Connections: Socially Integrated (01/29/2023) Social Connection and Isolation Panel [NHANES] Frequency of Communication with Friends and Family: More than three times a week Frequency of Social Gatherings with Friends and Family: More than three times a week Attends Spiritism Services: More than 4 times per year Active Member of Clubs or Organizations: Yes Attends Club or Organization Meetings: More than 4 times per year Marital Status: Intimate Partner Violence: Not At Risk (01/29/2023) Humiliation, Afraid, Rape, and Kick questionnaire Fear of Current or Ex-Partner: No Emotionally Abused: No Physically Abused: No Sexually Abused: No Housing Stability: Patient Unable To Answer (08/07/2024) Received from [facility] Housing Stability Vital Sign Unable to Pay for Housing in the Last Year: Patient unable to answer Homeless in the Last Year: Patient unable to answer Dayton Morin DO 09/27/241804 To room 4 via EMS from detention-they report patient was found in a bed across the hallway. Told them she fell and crawled into the bed. Presents to ER alert to self and place only-normal per EMS. No visible signs of injury, denies falling and has no complaints. Moving extremities well. DNRCC arrest documented in this encounter [facility] 09-27-2024 Emergency department Note Trying to swing legs over the siderail to look for shoes-yelling that we took her shoes (did not come with shoes). [facility] 09-27-2024 Emergency department Note Attempted to call report to [facility] but no one answered. Pt continues to try and get out of bed and yelling that wants to drive home. Advised that is waiting on ambulance to take her home [facility] 09-27-2024 Emergency department Note Sitting up in bed taking PO fluids well. Agitated-mad that left, we won't bring her daughter back (no daughter here) and that she's been waiting for 4 hours (not even 2). States came here after work and wants to just walk home because has to go back to work later. [facility] 09-27-2024 Emergency department Note Pt sitting up in bed agitated and confused. Aware that is waiting for ambulance to pick her up. RN sitting at bedside [facility] 09-27-2024 Hospital Discharg e lexa Morin DO - 09/27/2024 6:03 PM EDT Call your doctor on Sunday morning to schedule follow up. Return to the ED for symptoms that persist, change or worsen, or if any other problems arise. documented in this encounter [facility] 09-27-2024 Emergency department Note Pt's rehabilitation supervisor light-states he fell asleep at the bedside and woke up to patient standing at bedside. Pt returned to bed-oriented to self only. Advised that is being discharged but he declined to take her back to [facility]. States "she gets more confused and nasty at night-good luck" and left. [facility] 09-27-2024 Emergency department Note To radiology via stretcher [facility] 09-27-2024 Emergency department Note Spouse at bedside-states patient "seems normal to me". Aware that will get EKG and radiology studies here [facility] 09-27-2024 Emergency department Triage note To room 4 via EMS from detention-they report patient was found in a bed across the hallway. Told them she fell and crawled into the bed. Presents to ER alert to self and place only-normal per EMS. No visible signs of injury, denies falling and has no complaints. Moving extremities well. DNRCC arrest [facility] 09-27-2024 Physician Emergency department Note EMERGENCY DEPARTMENT ENCOUNTER Pt Name: Cj Gillis Birthdate 1940 Date of evaluation: 09/27/2024 ED Provider: Dayton Morin DO CHIEF COMPLAINT Chief Complaint Patient presents with Other HISTORY OF PRESENT ILLNESS (Location/Symptom, Timing/Onset, Context/Setting, Quality, Duration, Modifying Factors, Severity) Note limiting factors. HPI Cj Gillis is a 84 y.o. female who presents to the emergency department after being found facedown in a different bed in a different room at her detention today. Unknown whether she fell, this was unwitnessed. She denies falling but has advanced dementia and is not answering any questions correctly for paramedics. They have not noted any injuries or deficits. DNR CCA paperwork is with her at the bedside. She is not on anticoagulants. Family has been notified that she was coming here. Blood sugar normal and route. Has not been complaining of pain or acting differently per the detention staff report to the medics. Nursing Notes were reviewed. REVIEW OF SYSTEMS All systems reviewed and negative except as noted above. PAST MEDICAL HISTORY Medical History[1] SURGICAL HISTORY Surgical History[2] CURRENT MEDICATIONS Previous Medications ACETAMINOPHEN (TYLENOL) 500 MG TABLET Take 500 mg by mouth in the morning and 500 mg before bedtime. ASPIRIN 325 MG TABLET Take 325 mg by mouth in the morning. CHOLECALCIFEROL (VITAMIN D3) 125 MCG (5000 UT) TABLET DISPERSIBLE Take 125 mcg by mouth daily. DIPHENHYDRAMINE (BENADRYL) 12.5 MG CHEWABLE TABLET Chew 12.5 mg every 8 hours as needed for itching (hives- take with Prednisone). DULOXETINE HCL 30 MG CAPSULE DELAYED RELEASE SPRINKLE Take 60 mg by mouth daily. ENALAPRIL (VASOTEC) 10 MG TABLET TAKE ONE-HALF (1/2) TABLET DAILY FAMOTIDINE (PEPCID) 20 MG TABLET TAKE 1 TABLET DAILY GLUCOSE BLOOD (BLOOD GLUCOSE TEST) STRIP Test two times a day & as needed for symptoms of irregular blood glucose. JANUVIA 100 MG TABLET TAKE 1 TABLET DAILY LOPERAMIDE (IMODIUM A-D) 2 MG TABLET Take 2 mg by mouth as needed for diarrhea (not to exceed 8mg/day). LORATADINE (CLARITIN) 10 MG TABLET TAKE 1 TABLET DAILY METFORMIN XR (GLUCOPHAGE-XR) 500 MG 24 HR TABLET Take 2 tablets (1,000 mg) by mouth 2 times daily. METOPROLOL SUCCINATE XL (TOPROL-XL) 25 MG 24 HR TABLET Take 0.5 tablets (12.5 mg) by mouth daily. Do not crush or chew. PREDNISONE (DELTASONE) 20 MG TABLET Take 1 tablet by mouth once daily as needed for hives. ALLERGIES Hydrocodone-acetaminophen, Celecoxib, Morphine, Rofecoxib, and Statins FAMILY HISTORY Family History[3] SOCIAL HISTORY Social History[4] PHYSICAL EXAM ED Triage Vitals [09/27/24 1659] Temp Pulse Resp BP 36.7 C (98 F) -- 14 -- SpO2 Temp Source Heart Rate Source Patient Position -- Temporal -- -- BP Location FiO2 (%) -- -- General: Thin but well-developed elderly patient lying in bed who appears non-toxic. Head: Atraumatic, normocephalic. No signs of basilar skull fracture. Eyes: No ocular trauma. EOMI. No proptosis. ENT: No facial or dental trauma. Neck: No cervical midline tenderness. No stepoff, crepitus, ecchymosis or deformity. Back: No midline tendernes. No stepoff, crepitus, ecchymosis or deformity. Chest: Non-tender, no crepitus, ecchymosis or deformity. Heart: Regular rate and rhythm. Lungs: Clear to auscultation bilaterally. Normal respiratory pattern without respiratory distress. Abdomen: Soft, non-tender, non-distended, no guarding or peritoneal signs. Pelvis: Stable, non-tender. Neurologic: Awake and alert, nonverbal for me. Pupils equal. Moves all extremities equally well. Psychiatric: Unable to assess. Skin: Warm and dry, no lacerations. Musculoskeletal: Extremities atraumatic x 4. All long bones palpated, all joints put through passive range of motion without pain or crepitus. DIAGNOSTIC RESULTS/EMERGENCY DEPARTMENT COURSE and DIFFERENTIAL DIAGNOSIS/MDM: Vitals: Vitals: 09/27/24 1659 09/27/24 1700 BP: (!) 139/43 Pulse: 74 Resp: 14 Temp: 36.7 C (98 F) TempSrc: Temporal SpO2: 98% Weight: 54.4 kg (120 lb) Height: 1.626 m (5' 4") EKG: EKG was reviewed by myself. Physician EKG interpretation can be found in [facility]. LABS: Labs Reviewed - No data to display All other labs were within normal range or not returned as of this dictation. 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 ECG/medicine tests: ordered. History obtained from paramedics. Records reviewed include CT of the head which showed severe atrophy but no acute intracranial hemorrhage. Diagnostic interpretations performed by me in the ED include CT of the head which shows severe atrophy but no acute ICH. Social determinants of health affecting the patient's diagnosis and disposition include her residence at a detention with supervision. Management discussed with with her son who arrived after my initial evaluation. Medications administered in the ED include those listed below. Clinical impression: Possible fall; Alzheimer's dementia, late stage Patient was discharged with return precautions, instructions for outpatient follow up. Interpretation per the Radiologist below, if available at the time of this note: CT cervical spine wo IV contrast Final Result Diminished cerebral volume and evidence of chronic microvascular ischemic change without acute intracranial abnormality. CT CERVICAL SPINE: TECHNIQUE: Transaxial sequence through the cervical spine. Coronal and sagittal reconstructions included. Dose reduction was employed with automated exposure control. COMPARISON: None FINDINGS: Cervical vertebrae and joints: No fracture, subluxation or other malalignment. Minor facet hypertrophy noted greater on the left than the right. Osteopenia is noted. No bone lesion identified. Intervertebral disc spaces and spinal canal: Spurring and disc space narrowing from C3-C4 through C7-T1. No bony encroachment upon the cervical spinal canal. Soft tissues: Surrounding soft tissues of the neck are unremarkable on this noncontrast examination.. Other: Lung apices are unremarkable. IMPRESSION: No acute abnormality identified throughout the cervical spine. Cervical spondylosis Report Dictated on Electronically Signed By: Kwame Urban MD Electronically Signed Date/Time: 09/27/2024 5:[address] head wo IV contrast Final Result Diminished cerebral volume and evidence of chronic microvascular ischemic change without acute intracranial abnormality. CT CERVICAL SPINE: TECHNIQUE: Transaxial sequence through the cervical spine. Coronal and sagittal reconstructions included. Dose reduction was employed with automated exposure control. COMPARISON: None FINDINGS: Cervical vertebrae and joints: No fracture, subluxation or other malalignment. Minor facet hypertrophy noted greater on the left than the right. Osteopenia is noted. No bone lesion identified. Intervertebral disc spaces and spinal canal: Spurring and disc space narrowing from C3-C4 through C7-T1. No bony encroachment upon the cervical spinal canal. Soft tissues: Surrounding soft tissues of the neck are unremarkable on this noncontrast examination.. Other: Lung apices are unremarkable. IMPRESSION: No acute abnormality identified throughout the cervical spine. Cervical spondylosis Report Dictated on Electronically Signed By: Kwame Urban MD Electronically Signed Date/Time: 09/27/2024 5:54 PM EDT Medications - No data to display PROCEDURES: Unless otherwise noted below, none Procedures FINAL IMPRESSION 1. Encounter for examination following a fall 2. Severe Alzheimer's dementia without behavioral disturbance, psychotic disturbance, mood disturbance, or anxiety, unspecified timing of dementia onset (HCC) PATIENT REFERRED TO: Carlos Herron MD [address] [place] [address], [address] [facility] [address] Schedule an appointment as soon as possible for a visit DISCHARGE MEDICATIONS: New Prescriptions No medications on file (Comment: Please note this report has been produced using speech recognition software and may contain errors related to that system including errors in grammar, punctuation, and spelling, as well as words and phrases that may be inappropriate. 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 TB (pulmonary tuberculosis) 1959 [2] Past Surgical History: Procedure Laterality Date BLADDER SUSPENSION 2000 BLADDER SUSPENSION 2017 2nd, CHOLECYSTECTOMY KNEE ARTHROPLASTY Bilateral 2000 TOTAL ABDOMINAL HYSTERECTOMY [3] Family History Problem Relation Name Age of Onset Lung cancer Mother Depression Mother High Blood Pressure Father Hyperlipidemia Father High Blood Pressure Mother Hearing loss Father Heart attack Father Heart disease Father Coronary artery disease Father [4] Social History Socioeconomic History Marital status: Tobacco Use Smoking status: Never Smokeless tobacco: Never Vaping Use Vaping status: Never Used Substance and Sexual Activity Alcohol use: No Drug use: No Sexual activity: Defer Social Drivers of Health Financial Resource Strain: Low Risk (01/29/2023) Overall Financial Resource Strain (CARDIA) Difficulty of Paying Living Expenses: Not hard at all Food Insecurity: Patient Unable To Answer (08/07/2024) Received from [facility] Hunger Vital Sign Worried About Running Out of Food in the Last Year: Patient unable to answer Ran Out of Food in the Last Year: Patient unable to answer Transportation Needs: Patient Unable To Answer (08/07/2024) Received from [facility] PRAPARE - Transportation Lack of Transportation (Medical): Patient unable to answer Lack of Transportation (Non-Medical): Patient unable to answer Physical Activity: Sufficiently Active (01/29/2023) Exercise Vital Sign Days of Exercise per Week: 7 days Minutes of Exercise per Session: 60 min Stress: No Stress Concern Present (01/29/2023) [employer] [employer] - Occupational Stress Questionnaire Feeling of Stress : Only a little Social Connections: Socially Integrated (01/29/2023) Social Connection and Isolation Panel [NHANES] Frequency of Communication with Friends and Family: More than three times a week Frequency of Social Gatherings with Friends and Family: More than three times a week Attends Spiritism Services: More than 4 times per year Active Member of Clubs or Organizations: Yes Attends Club or Organization Meetings: More than 4 times per year Marital Status: Intimate Partner Violence: Not At Risk (01/29/2023) Humiliation, Afraid, Rape, and Kick questionnaire Fear of Current or Ex-Partner: No Emotionally Abused: No Physically Abused: No Sexually Abused: No Housing Stability: Patient Unable To Answer (08/07/2024) Received from [facility] Housing Stability Vital Sign Unable to Pay for Housing in the Last Year: Patient unable to answer Homeless in the Last Year: Patient unable to answer Dayton Morin DO 09/27/241804 [facility] 08-28-2024 Note HNO ID: [id number] Author: GUERITA MEANS, RN Service: ? Author Type: Registered Nurse Type: Nursing Progress Note Filed: 08/28/2024 15:52 Note Text: Called report to [facility]. Gave report to Cjs nurse. All questions answered [facility] 08-28-2024 Note HNO ID: [id number] Author: ALVIN OLIVERA APRN.PALEOBOTANIST Service: Anesthesiology Author Type: Nurse Jewel Lathe Operator Type: Anesthesia Procedure Notes Filed: 08/28/2024 14:16 Note Text: ANESTHESIOLOGY PROCEDURE NOTE Airway General Information Procedure Start Time/Medication Administration: 08/28/2024 2:02 PM Procedure End Time: 08/28/2024 2:02 PM Patient location during procedure: OR Timeout Performed Pre-procedure: timeout performed Consent Obtained: Yes Patient identity confirmed: arm band, care environmental field team member and patient Staffing PALEOBOTANIST: Alvin Olivera APRN.PALEOBOTANIST Performed by: FAROOQ Indications and Patient Condition Indications for airway management: anesthesia Preoxygenated: yes anesthesia circuit Patient position: sniffing Method: asleep Cricoid Pressure: No Manual In-Line Stabilization: No Difficult Mask: No Final Airway Details Final airway type: supraglottic airway Number of attempts at approach: 1 Final Supraglottic Airway: i-gel Size 3 Seal Adequate: yes Failed airway: no Airway not difficult SIGNATURE: Alvin Olivera APRN.PALEOBOTANIST PATIENT NAME: Cj Gillis DATE: August 28, 2024 TIME: 2:15 PM CSN: [id number] [facility] 08-27-2024 Telephone encounter Note Images from the original note were not included. [facility] PATIENT PREOPERATIVE INSTRUCTIONS Dr. Rey Rowan has scheduled you for your procedure at this surgery center: [facility]: [phone] -- [address] [place] [id number]. Please read below carefully for your personalized [...] office. If you are currently using a xokf-uqv-hhnu injectable or oral medication for diabetes or [...] Advance Directive, please fax a copy to [phone] or email to for it to be [...] your chart that day. Norma Pleitez RN [facility] Work Phone: 08-27-2024 Miscellaneous Notes Images from the original note were not included. [facility] PATIENT PREOPERATIVE INSTRUCTIONS Dr. Rey Rowan has scheduled you for your procedure at this surgery center: [facility]: [phone] -- [address] [facility] [address]. Please read below carefully for your personalized [...] office. If you are currently using a eagm-exi-sbsn injectable or oral medication for diabetes or [...] Advance Directive, please fax a copy to [phone] or email to for it to be [...] that day. Norma Pleitez RN Nurse at [facility] (Jamshid Soares) requesting medication instructions for tomorrow's surgery. Pt did not see PACC-seen in ED. Can you help? documented in this encounter [facility] 08-27-2024 Telephone encounter Note Nurse at [facility] (Jamshid Soares) requesting medication instructions for tomorrow's surgery. Pt did not see PACC-seen in ED. Can you help? [facility] 08-08-2024 Note HNO ID: [id number] Author: ELLIOT PORTER RN Service: Care Management Author Type: Registered Nurse Type: Care Mgt Progress Note Filed: 08/08/2024 15:28 Note Text: CARE MANAGEMENT DISCHARGE NOTE SERVICE DATE: August 08, 2024 SERVICE TIME: 3:27 PM Admission Date: 08/06/2024 LOS: 2 days Discharge Arrangement Discharge Arrangement: Extended Care Facility Provider Name: Jamshid Soares Caregiver Assessment Caregiver is ready, willing and able to meet the patient's needs as recommended by the inter-professional team: Yes Name of Caregiver: Jamshid Soares Transportation Arrangements Transportation Arrangements: Ambulance Transportation Agency and Phone #:: [facility] ( [facility] ) [phone] / [phone] Date of Trip: 08/08/24 Time of Trip: 1530 Type of Service: BLS Non-emergency Is Patient Medicaid Pending?: No Was transportation financial coverage discussed with family?: Spouse [employer] Location: [facility] Destination: [facility] Financial Care Management Responsibility: None Handoff Communication: Handoff to: Primary Care Physician, Other Caregiver Primary Care Physician Name/Phone: summary of care to PCPCarlos Other Caregiver Name/Phone: [facility] is aware of DC and transport time, RN to call report Additional Information: Patient is discharging back to [facility]. [facility] to transport patient via cot at 3:30pm. RN is aware. Met with patient and her in room to update on plan for DC and transport time. They are in agreement with plans. SIGNATURE: Alejandra Porter RN PATIENT NAME: Cj Gillis DATE: August 08, 2024 TIME: 3:27 PM [facility] 08-07-2024 Note HNO ID: [id number] Author: ELLIOT PORTER RN Service: Care Management Author Type: Registered Nurse Type: Care Mgt Initial Assessment Filed: 08/07/2024 11:34 Note Text: CARE MANAGEMENT: ASSESSMENT AND DISCHARGE PLAN SERVICE DATE: August 07, 2024 SERVICE TIME: 11:29 AM PCP: Carlos Herron MD Primary Contact: Extended Emergency Contact Information Primary Emergency Contact: Sukumar Gillis [facility] Mobile Relation: Spouse Secondary Emergency Contact: Guerita Rivera Address: Call with medication and appointment questions. [place] [address] [facility] Mobile Relation: Daughter Admission Status: Inpatient Insurance Provider: [place] MEDICARE PPO Discharge Planning requested by: Per Department Practice Potential Transition Plans Residential Facility/Intermediate Care Facility Advance Directives Current Advance Directive: Health Care Power of Carbon Plant Grinder, Living Will In Chart: No Current Living Arrangements and Support Lives with: Type of Residence: Extended Care Facility Does the patient have to climb stairs at home?: No Care Facility Name: [facility] Support: Spouse/significant other, Children How do you manage to accomplish the following: Needs Assistance: Ambulation, Bathe/Shower, Dress, Meals/Meal Prep, Going to the bathroom, Medication Management Current Services/Equipment Current Post-Acute Service(s): DME Current DME Type: Walker, Wheelchair-manual Discharge Planning Patient Goal(s): Be able to go home, General wellness [place] Explained: [place] Given: Yes (per patient's , plan to return to [facility]) Level of Care Discussed: Residential Facility Are you interested in bedside delivery of your medications? No Discharge Planning Participant(s): Patient, Spouse/significant other Patient/Family Comments: spouse at bedside Caregiver Assessment: Caregiver is ready, willing and able to meet the patient's needs as recommended by the inter-professional team: Yes [facility] Transport at Discharge: Transportation Arrangements: Ambulance Needs Prior to Discharge: Needs Prior to Discharge: To Be Determined, Accepting Facility, Precertification, Discharge Transportation Post-Acute Discharge Plan: Chart reviewed and met with patient and her in room. Patient's provided patient hx and information for IA as patient has dementia. Patient is from [facility]. Needs assistance with care and is mobile with a walker but per has been using a w/c the past week since she's been weaker. DC plan is to return to [facility] and will need cot transport. Therapy evals are pending. Patient may qualify for skilled services under Medicare pending auth when she returns. is agreeable to plan for skilled if appropriate. Return referral sent to [facility]. SIGNATURE: Alejandra Porter RN PATIENT NAME: Cj Gillis DATE: August 07, 2024 TIME: 11:29 AM [facility] 08-07-2024 Note HNO ID: [id number] Author: BARNEY MARIE MD Service: Hospital Medicine Author Type: Physician Type: Progress Notes Filed: 08/07/2024 20:40 Note Text: DEPARTMENT OF HOSPITAL MEDICINE PROGRESS NOTE Hospital Medicine/Primary Attending: Barney Marie MD NIGHT AND WEEKEND COVERAGE: [place] COVERAGE: From 7am - 7pm, please call [employer] After 7pm, please call cross cover pager #[phone] Subjective INTERVAL HPI: Patient seen and examined. Follow up for urinary tract infection and stone.History limited due to patients condition.Patients denies dysuria and no abdominal pain.Leukocytosis improving MEDICATIONS: Reviewed Objective PHYSICAL EXAM: BP 131/64 Pulse 85 Temp (Src) 100.3 (Axillary) Resp 18 Ht 5' 3" (1.60m) Wt 114 lb (51.7kg) SpO2 93% [...] 20 Gauge 1 day Peripheral 08/06/24 1746 [facility] Right Antecubital 20 Gauge <1 day DATA: [...] Non-Pharmacologic VTE Prophylaxis/Anticoagulants 08/06/242044 pneumatic compression sleeve(s) (nh,oh) VTE Prophylaxis: VTE prophylaxis appropriate Disposition: To be determined Plan of care discussed with: Provider, RN, Patient SIGNATURE: Barney Marie MD PATIENT NAME: Cj Gillis DATE: August 07, 2024 TIME: 10:56 AM etx [id number] [facility] 08-07-2024 Note HNO ID: [id number] Author: SHEILA HOLDEN MD Service: Urology Author Type: Resident Type: Progress Notes Filed: 08/07/2024 07:08 Note Text: Attestation signed by Ariana Virgen MD at 08/11/2024 12:35 AM [facility] STAFF PHYSICIAN NOTE OF PERSONAL INVOLVEMENT IN CARE I have reviewed the progress note obtained and documented by the resident. I have discussed the case and management of the patient's care. Ariana Virgen MD Associate Staff Urogynecology and Reconstructive Pelvic surgery [facility] Urology UROLOGY PROGRESS NOTE PATIENT NAME: Cj Gillis DATE OF : 1940 ADMISSION DATE: 08/06/2024 3:53 PM Subjective POD1 left ureteral stent insertion. No nausea, vomiting, fevers or chills. Tolerating diet. Objective VS: BP 122/65 Pulse 86 Temp 36.6 ?C (97.8 ?F) (Axillary) Resp 15 Ht 160 cm (5' 3") Wt 51.7 kg (114 lb) SpO2 95% [...] Value 08/07/2024 196 07/01/2018 286 Urinalysis: Specific [place], Ur Date Value Ref Range Status 08/06/2024 [...] Final Urine Culture: No results found for: "URCUL" RADIOLOGY: Assessment and Plan Problem List Sepsis [...] concerns Sheila Holden MD Urology PGY-4 Pager #[phone] 08/07/2024 6:47 AM [facility] 08-06-2024 Note HNO ID: [id number] Author: ADITI ADAM RN Service: ? Author Type: Registered Nurse Type: Nursing Progress Note Filed: 08/06/2024 20:51 Note Text: Altercare of Keith Soares Porter/Memory care unit [facility] 02-01-2024 History of Presen t illness Narrative Images from the original note were not included. [address] [address] Visit type: Established Patient Reason for Visit: [...] complication, without long-term current use of insulin ([facility] Diabetes Foot Exam - Comprehensive metabolic panel - Hemoglobin A1c - Encouraged a diet low in carbohydrates and sugar. Discussed increasing Metformin to 1,000 mg twice a day. 3. Diabetic polyneuropathy associated with diabetes mellitus due to underlying condition ([facility] Diabetes Foot Exam - Comprehensive metabolic panel - Hemoglobin A1c - Encouraged a diet low in carbohydrates and sugar. Discussed increasing Metformin to 1,000 mg twice a day. 4. Encounter for diabetic foot exam ([facility] Diabetes Foot Exam 5. Atherosclerosis of coronary artery of [place] heart without angina pectoris, unspecified vessel or [...] months (around 05/03/2024) for diabetes management. Marek Art presents today with her daughter for her [...] trend: stable Current diet: in general, an "unhealthy" diet- eats a lot so sugary foods [...] 01/31/2025 (Originally 1940) COVID-19 Vaccine ( - 2023-25 season) 2025 (Originally 12/02/2023) Depression Monitoring 07/31/2024 [...] min Stress: No Stress Concern Present (01/29/2023) [place] [employer] [employer] - Occupational Stress Questionnaire Feeling of Stress : Only a little Social Connections: Socially Integrated (01/29/2023) Social Connection and Isolation Panel [NHANES] Frequency of Communication with Friends and Family: More than three times a week Frequency of Social Gatherings with Friends and Family: More than three times a week Attends Spiritism Services: More than 4 times per year [...] Objective BP 108/64 Pulse 78 Ht 5' 2.75" (1.594 m) Wt 128 lb 4.8 oz [...] name and . documented in this encounter [facility] 01-31-2024 Telephone encounter Note Agree, thank you [facility] 01-31-2024 Miscellaneous Notes Agree, thank [...] 4:00. Would recommend that she stop and pick up worker a sterile container. Ashwini from [facility] called stating she saw faby today who complained of dysuria and worse leakage than normal so she is not wanting to drink anything due to this. Ashwini advised her not to do that. States Fayb was very repetitive today, more so than normal. Asking if we want any urine testing done? She is not able to send out a sample today but could do it tomorrow unless Faby's daughter can get us a sample today, Ashwini is calling her next. documented in this encounter [facility] 01-31-2024 Telephone encounter Note Spoke to Guerita, she will actually be in with Faby for an appointment tomorrow morning with Rubina, will have urine tested then. [facility] 01-31-2024 Telephone encounter Note Yes, I think a urinalysis would be in line, if she cannot get it she can have her daughter collect it and bring it here if she can be here before 4:00. Would recommend that she stop and pick up worker a sterile container. [facility] 01-31-2024 Telephone encounter Note Ashwini from [facility] called stating she [...] sample today, Ashwini is calling her next. [facility] 01-28-2024 Telephone encounter Note Prescription Request: Last medication check: 11/09/23 Last physical exam: 01/29/23 Next scheduled appointment: 02/01/24 Last date of refill on this medication 06/11/23 90 and 1 refill [facility] 01-28-2024 Miscellaneous Notes Prescription Request: Last medication check: 11/09/23 Last physical exam: 01/29/23 Next scheduled appointment: 02/01/24 Last date of refill on this medication 06/11/23 90 and 1 refill documented in this encounter [facility] 01-10-2024 Note Addended by: RUBINA MOORE on: 01/10/2024 12:27 PM Modules accepted: Orders [facility] 01-10-2024 Telephone encounter Note Prescription Request: Last medication check: 11/09/23 Last physical exam: 01/29/23 Next scheduled appointment: 02/01/24 Last date of refill on this medication 07/11/23 90 day 1 refill [facility] 01-10-2024 Miscellaneous Notes Prescription Request: Last medication check: 11/09/23 Last physical exam: 01/29/23 Next scheduled appointment: 02/01/24 Last date of refill on this medication 07/11/23 90 day 1 refill documented in this encounter [facility] 01-01-2024 Telephone encounter Note Prescription Request: Last medication check: 11/09/23 Last physical exam: 01/29/23 Next scheduled appointment:02/01/24 Last date of refill on this medication 07/05/23 [facility] 01-01-2024 Miscellaneous Notes Prescription Request: Last medication check: 11/09/23 Last physical exam: 01/29/23 Next scheduled appointment:02/01/24 Last date of refill on this medication 07/05/23 documented in this encounter [facility] 11-09-2023 History of Presen t [...] trend: stable Current diet: in general, an "unhealthy" diet Current exercise: active throughout the day [...] min Stress: No Stress Concern Present (01/29/2023) [employer] [employer] [employer] - Occupational Stress Questionnaire Feeling of Stress : Only a little Social Connections: Socially Integrated (01/29/2023) Social Connection and Isolation Panel [NHANES] Frequency of Communication with Friends and Family: More than three times a week Frequency of Social Gatherings with Friends and Family: More than three times a week Attends Spiritism Services: More than 4 times per year [...] confusion. BP 102/68 Pulse 74 Ht 5' 2.75" (1.594 m) Wt 128 lb 9.6 oz [...] complication, without long-term current use of insulin ([facility]) (HCC) - Microalbumin / creatinine urine ratio - Diabetes Foot Exam - AMB POC HEMOGLOBIN A1C - Hemoglobin A1c was 8.3% today. Will increase Metformin to 1,000 mg twice a day. Continue current dose of Januvia. 2. Diabetic polyneuropathy associated with diabetes mellitus due to underlying condition (CMS/HCC) ([facility]) - Microalbumin / creatinine urine ratio - Diabetes Foot Exam - AMB POC HEMOGLOBIN A1C - Hemoglobin A1c was 8.3% today. Will increase Metformin to 1,000 mg twice a day. Continue current dose of Januvia. 3. Encounter for diabetic foot exam (HCC) - Diabetes Foot Exam 4. Mixed Alzheimer's and vascular dementia ([facility]) - Stable. Follow up with specialist as [...] episode of recurrent major depressive disorder ([facility]) - Stable with Cymbalta. Will continue current [...] 11/09/2023 11:38 AM documented in this encounter [facility] 11-09-2023 History of Presen t [...] trend: stable Current diet: in general, an "unhealthy" diet Current exercise: active throughout the day [...] min Stress: No Stress Concern Present (01/29/2023) [place] [employer] [employer] - Occupational Stress Questionnaire Feeling of Stress : Only a little Social Connections: Socially Integrated (01/29/2023) Social Connection and Isolation Panel [NHANES] Frequency of Communication with Friends and Family: More than three times a week Frequency of Social Gatherings with Friends and Family: More than three times a week Attends Spiritism Services: More than 4 times per year [...] confusion. BP 102/68 Pulse 74 Ht 5' 2.75" (1.594 m) Wt 128 lb 9.6 oz [...] 1. Type 2 diabetes mellitus with hyperlipidemia ([facility]) ([facility]) - Microalbumin / creatinine urine ratio - Diabetes Foot Exam - AMB POC HEMOGLOBIN A1C - Hemoglobin A1c was 8.3% today. Will increase Metformin to 1,000 mg twice a day. Continue current dose of Januvia. 2. Diabetic polyneuropathy associated with diabetes mellitus due to underlying condition ([facility]) ([facility]) - Microalbumin / creatinine urine ratio - Diabetes Foot Exam - AMB POC HEMOGLOBIN A1C - Hemoglobin A1c was 8.3% today. Will increase Metformin to 1,000 mg twice a day. Continue current dose of Januvia. 3. Encounter for diabetic foot exam ([facility]) - Diabetes Foot Exam 4. Mixed Alzheimer's and vascular dementia ([facility]) - Stable. Follow up with specialist as [...] 11/09/2023 11:38 AM documented in this encounter [facility] 10-12-2023 Telephone encounter Note Prescription Request: Last medication check: none Last physical exam: 01/29/23 Next scheduled appointment: 11/09/23 Last date of refill on this medication 04/18/23 [facility] 10-12-2023 Miscellaneous Notes Prescription Request: Last medication check: none Last physical exam: 01/29/23 Next scheduled appointment: 11/09/23 Last date of refill on this medication 04/18/23 documented in this encounter [facility] 07-26-2023 History of Presen t illness Narrative Images from the original note were not included. [facility] [address] [address] Dept: [phone] Dept Loc: [phone] Visit type: [facility] Initial Assessment Visit Date: 07/26/2023 Reason for Visit: Dementia Assessment and Plan 1. 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 female who presents to the [facility] for a comprehensive geriatric assessment. 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- granddtr does [...] lb 12.8 oz (56.6 kg) Height: 5' 2.75" (1.594 m) Wt Readings from Last 3 [...] TSH 0.568 08/02/2021 No results found for: "FOLATE" Lab Results Component Value Date [id number] 10/15/2020 No results found for: "RPR" Testing: The following tests were performed at today's visit and scanned in to the chart: MMSE score:13/30 Clock drawing score: 3 PHQ-9 score: 9 [...] Use History: none service: Spouse was a (not during wartime) Highest level of education: HS 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 Resources given today: Caregiver Relief program, home health agency list, Adult Day Program list, Elder Care Carbon Plant Grinder list Functional Status (I: Independent, A: Assisted, [...] Spouse pays bills documented in this encounter [facility] 07-26-2023 Instructions CHONG Lofton CNP - 07/26/2023 2:45 PM EDT --Memory testing scores have declined since last visit --Recommend continuing to stay physically, socially and mentally active --Follow up regularly with family doctor to optimize blood pressure, cholesterol, blood sugar. --Follow up with our office in one year or sooner if needed documented in this encounter [facility] 07-06-2023 Telephone encounter Note Scheduled 07/26/23. [facility] 07-06-2023 Miscellaneous Notes Scheduled 07/26/23. Name of Caller: Guerita Contact Reason for Appointment: Returning call to schedule appointment. Please advise. Office Name: Senior Services Medication Refills need, if any: NA Medication Name: NA documented in this encounter [facility] 07-05-2023 Telephone encounter Note Name of Caller: Guerita Contact Reason for Appointment: Returning call to schedule appointment. Please advise. Office Name: [facility] Services Medication Refills need, if any: NA Medication Name: NA [facility] 07-05-2023 Telephone encounter Note Prescription Request: Last medication check: none Last physical exam: 01/29/23 Next scheduled appointment: 08/03/23 Last date of refill on this medication 07/10/22 90 day 3 refills [facility] 07-05-2023 Miscellaneous Notes Prescription Request: Last medication check: none Last physical exam: 01/29/23 Next scheduled appointment: 08/03/23 Last date of refill on this medication 07/10/22 90 day 3 refills documented in this encounter [facility] 03-27-2023 Telephone encounter Note Reviewed chart. Refill appropriate. RX sent. [facility] 03-27-2023 Miscellaneous Notes Reviewed chart. Refill appropriate. RX sent. Prescription Request: Last medication check: 03/16/23 Last physical exam: 01/29/23 Next scheduled appointment: 08/03/23 CSA on file (date): 09/27/22 Last urine drug screen: none Last date of refill on this medication 01/19/23 90 tablets no refill documented in this encounter [facility] 03-27-2023 Telephone encounter Note Prescription Request: Last medication check: 03/16/23 Last physical exam: 01/29/23 Next scheduled appointment: 08/03/23 CSA on file (date): 09/27/22 Last urine drug screen: none Last date of refill on this medication 01/19/23 90 tablets no refill [facility] 03-16-2023 History of Presen t [...] lb 12.8 oz (56.6 kg) Height: 5' 3.5" (1.613 m) Body mass index is 21.76 [...] 03/16/2023 8:23 AM documented in this encounter [facility] 03-05-2023 Note HNO ID: [id number] Author: Lynette Santiago Service: ? Author Type: [...] and fax results to Dr. Sprague at [phone] No current facility-administered medications for this visit. [...] 07/31/2018 Colonoscopy COLPOPEXY (more content not included)... [facility] 03-05-2023 Note HNO ID: [id number] Author: Elizabeth De Guzman RN Service: ? Author Type: Registered Nurse Type: Progress Notes Filed: 03/05/2023 9:24 AM Note Text: Patient presents with: Left Foot - Established Patient, Follow Up, Diabetic Foot Check Right Foot - Established Patient, Follow Up, Diabetic Foot Check Patient presents for order for new diabetic shoes. ATUL-07/23/20. States that she gets pain in the evenings to the top of her feet. [facility] 03-05-2023 Instructions Lynette Santiago - 03/05/2023 9:14 [...] or sore from your shoes, do not "pop" it. Apply a bandage and wear a different pair of shoes. Take Care of Your Toenails Cut toenails after bathing, when they are soft. Cut toenails straight across and smooth with a nail file. Avoid cutting into the corners of toes. Do not cut cuticles. If you have neuropathy (or decreased sensation in your feet) a spindle tester should always cut your toenails. Be Careful [...] your shoes are too tight. Perform the "footwear test" described below. Footwear Test Use this simple [...] Go to your health care provider or spindle tester to treat these conditions. documented in this encounter [facility] 03-05-2023 History of Presen t illness Narrative [...] and fax results to Dr. Sprague at [phone] No current facility-administered medications for this visit. [...] diabetes mellitus due to underlying condition ([facility]) (primary encounter diagnosis) (L84) Callus of foot [...] of her feet. documented in this encounter [facility] 01-29-2023 History of Presen t illness Narrative Images from the original note were not included. [address] [address] Visit type: Established Patient Reason for Visit: [...] 2. Mixed Alzheimer's and vascular dementia ([facility]) - CBC - Comprehensive metabolic panel - Progressing. Declines additional workup at this time. Discussed home safety measures. 3. Type 2 diabetes mellitus without complication, without long-term current use of insulin ([facility]HCC) ([facility]) - CBC - Comprehensive metabolic panel - Hemoglobin A1c - Microalbumin / creatinine urine ratio - Diabetes Foot Exam - Glucose Blood (Blood Glucose Test) strip; Test two times a day & as needed for symptoms of irregular blood glucose., Normal - Stable with Metformin and Januvia. Will continue current treatment plan. 4. Encounter for diabetic foot exam ([facility]) - Diabetes Foot Exam 5. Atherosclerosis of coronary artery without angina pectoris, unspecified vessel or lesion type, unspecified whether [place] or transplanted heart - CBC - Comprehensive [...] Yes Weight trend: stable Prior visit with car checker: No Current diet: in general, an "unhealthy" diet Current exercise: active around the house [...] min Stress: No Stress Concern Present (01/29/2023) [place] [employer] - Occupational Stress Questionnaire Feeling of Stress : Only a little Social Connections: Socially Integrated (01/29/2023) Social Connection and Isolation Panel [NHANES] Frequency of Communication with Friends and Family: More than three times a week Frequency of Social Gatherings with Friends and Family: More than three times a week Attends Spiritism Services: More than 4 times per year [...] BP (!) 142/62 Pulse 65 Ht 5' 3.5" (1.613 m) Wt 127 lb 6.4 oz [...] 01/29/2023 11:51 AM documented in this encounter [facility] 11-13-2022 History of Presen t [...] symptoms worsen or fail to improve. SUBJECTIVE/OBJECTIVE: DANA Art is brought in today by her daughter [...] Weight: 125 lb (56.7 kg) Height: 5' 2" (1.575 m) Body mass index is 22.86 [...] 11/13/2022 1:46 PM documented in this encounter [facility] 11-01-2022 Telephone encounter Note Rx sent to mail order per request. Follow up as scheduled. [facility] 11-01-2022 Miscellaneous Notes Rx sent [...] want this sent. documented in this encounter [facility] 11-01-2022 Telephone encounter Note Prescription Request: Last medication check: 07/22/21 Last physical exam: 01/27/22 Next scheduled appointment: 01/29/23 Last date of refill on this medication 05/31/22 [facility] 10-31-2022 Telephone encounter Note [facility] sent [facility] request for refill on the duloxetine but all of her maintenance medications have as of late been going to the mail order. My chart message sent to family to confirm where they want this sent. [facility] 10-09-2022 Telephone encounter Note Rx sent. Follow up as scheduled. [facility] 10-09-2022 Miscellaneous Notes Rx sent. Follow up as scheduled. Prescription Request: Last medication check: 07/22/21 Last physical exam: 01/27/22 Next scheduled appointment: 01/29/23 Last date of refill on this medication 10/13/21 documented in this encounter [facility] 10-09-2022 Telephone encounter Note Prescription Request: Last medication check: 07/22/21 Last physical exam: 01/27/22 Next scheduled appointment: 01/29/23 Last date of refill on this medication 10/13/21 [facility] 07-10-2022 Telephone encounter Note Prescription Request: Last medication check: 07/22/21 Last physical exam: 01/27/22 Next scheduled appointment: 07/31/22 CSA on file (date): na Last urine drug screen: na Last date of refill on this medication 07/14/21 90 day 3 refills on both meds [facility] 07-10-2022 Miscellaneous Notes Prescription Request: Last medication check: 07/22/21 Last physical exam: 01/27/22 Next scheduled appointment: 07/31/22 CSA on file (date): na Last urine drug screen: na Last date of refill on this medication 07/14/21 90 day 3 refills on both meds documented in this encounter [facility] 06-15-2022 Note Addended by: CARLOS HERRON on: 06/15/2022 11:54 AM Modules accepted: Orders [facility] 06-15-2022 Miscellaneous Notes Addended by: CARLOS HERRON on: 06/15/2022 11:54 AM Modules accepted: Orders Orders signed Urine dropped off please sign. documented in this encounter [facility] 06-12-2022 Telephone encounter Note Orders signed [facility] 06-12-2022 Telephone encounter Note Urine dropped off please sign. [facility] 04-24-2022 Telephone encounter Note Rx sent. Follow up as scheduled. [facility] 04-24-2022 Miscellaneous Notes Rx sent. Follow up as scheduled. Prescription Request: Last medication check: 07/22/2021 Last physical exam: 01/27/2022 Next scheduled appointment: 07/31/2022 CSA on file (date): none Last urine drug screen: none Last date of refill on this medication 10/26/2021 90 days 1 refill documented in this encounter [facility] 04-24-2022 Telephone encounter Note Prescription Request: Last medication check: 07/22/2021 Last physical exam: 01/27/2022 Next scheduled appointment: 07/31/2022 CSA on file (date): none Last urine drug screen: none Last date of refill on this medication 10/26/2021 90 days 1 refill [facility] 01-10-2021 History of Presen t illness Narrative [...] 2021 11:58 AM documented in this encounter [facility] Evaluation note Diagnosis Injury due to fall, initial encounter documented in this encounter [facility] Work Phone: evaluation note* Diagnosis Proctocolitis- Primary Ulcerative (chronic) proctitis Leukocytosis, unspecified type documented in this encounter [facility] Work Phone: Evahadsupm noteNo assessment information available [facility] Work Phone: Evaludvkrr note* Diagnosis Mild episode of recurrent major depressive disorder (HCC) [facility]* Diagnosis Leukocytes in urine- Primary Other nonspecific finding on examination of urine Other microscopic hematuria [facility] Diagnosis Injury due to fall, initial encounter- Primary Pain in joint of right hip [facility]* Diagnosis Unspecified fall, initial encounter [facility] Diagnosis Unspecified fall, initial encounter- Primary [facility]* Diagnosis Diabetic polyneuropathy associated with diabetes mellitus due to underlying condition (HCC)- Primary Callus of foot Corns and callosities Arthritis of foot Unspecified arthropathy, ankle and foot [facility] Diagnosis Mild episode of recurrent major depressive disorder (HCC)- Primary Mixed hyperlipidemia Dysuria Urinary frequency Essential hypertension, benign [facility]* Diagnosis Medicare annual wellness visit, subsequent- Primary Mixed Alzheimer's and vascular dementia ([facility]) Type 2 diabetes mellitus without complication, without long-term current use of insulin ([facility]) ([facility]) Encounter for diabetic foot exam ([facility]) Atherosclerosis of coronary artery without angina pectoris, unspecified vessel or lesion type, unspecified whether [place] or transplanted heart Essential hypertension, benign Osteoarthritis, unspecified osteoarthritis type, unspecified site Chronic pain of both feet Mild episode of recurrent major depressive disorder ([facility]) Mixed stress and urge urinary incontinence Mixed incontinence urge and stress (male)(female) Hematuria, unspecified type Leukocytes in urine Other nonspecific finding on examination of urine [facility]* Diagnosis Chronic pain of both feet Osteoarthritis, unspecified osteoarthritis type, unspecified site [facility] Diagnosis Hematuria, unspecified type Leukocytes in urine Other nonspecific finding on examination of urine [facility]* Diagnosis Recurrent UTI- Primary Urinary tract infection, site not specified [facility]* Diagnosis Mixed Alzheimer's and vascular dementia (HCC)- Primary [facility]* Diagnosis Mixed Alzheimer's and vascular dementia (HCC) [facility]* Diagnosis Type 2 diabetes mellitus without complication, without long-term current use of insulin ([facility]) ([facility])- Primary Diabetic polyneuropathy associated with diabetes mellitus due to underlying condition ([facility]) ([facility]) Encounter for diabetic foot exam ([facility]) Mixed Alzheimer's and vascular dementia (HCC) Osteoarthritis, unspecified osteoarthritis type, unspecified site Chronic pain of both feet Mild episode of recurrent major depressive disorder ([facility]) Mixed stress and urge urinary incontinence Mixed incontinence urge and stress (male)(female) Overactive bladder Hypertonicity of bladder [facility]* Diagnosis Type 2 diabetes mellitus with hyperlipidemia ([facility]) ([facility])- Primary Diabetic polyneuropathy associated with diabetes mellitus due to underlying condition ([facility]) ([facility]) Encounter for diabetic foot exam ([facility]) Mixed Alzheimer's and vascular dementia (HCC) Osteoarthritis, unspecified osteoarthritis type, unspecified site Chronic pain of both feet 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 Mixed incontinence urge and stress (male)(female) Overactive bladder Hypertonicity of bladder [facility]* Diagnosis Rib injury Sprain of ribs [facility]* Diagnosis Acute cough- Primary Other fatigue Increased frequency of urination Urinary frequency Urinary frequency Atherosclerosis of coronary artery of [place] heart without angina pectoris, unspecified vessel or lesion type Essential hypertension, benign documented [facility] this encounter [facility]* Diagnosis Acute cough- Primary Other fatigue Increased frequency of urination Urinary frequency Urinary frequency Medicare annual wellness visit, subsequent- Primary Type 2 diabetes mellitus without complication, without long-term current use of insulin ([facility] ([facility]) Diabetic polyneuropathy associated with diabetes mellitus due to underlying condition ([facility]) ([facility]) Encounter for diabetic foot exam ([facility]) Atherosclerosis of coronary artery of [place] heart without angina pectoris, unspecified vessel or lesion type Essential hypertension, benign Mixed hyperlipidemia Statin declined Mixed Alzheimer's and vascular dementia (HCC) Osteoarthritis, unspecified osteoarthritis type, unspecified site Chronic pain of both feet Mild episode of recurrent major depressive disorder (HCC) Recurrent UTI Urinary tract infection, site not specified Mixed stress and urge urinary incontinence Mixed incontinence urge and stress (male)(female) Overactive bladder Hypertonicity of bladder Urinary frequency Screening for deficiency anemia Screening for other and unspecified deficiency anemia documented [facility] this encounter [facility]* Diagnosis Acute cough- Primary Other fatigue Increased frequency of urination Urinary frequency Urinary frequency Type 2 diabetes mellitus with hyperlipidemia ([facility]) (HCC) Diabetic polyneuropathy associated with diabetes mellitus due to underlying condition ([facility]) ([facility]) documented in this encounter [facility]* Diagnosis Urinary frequency- Primary [facility]* Diagnosis Acute cough- Primary Other fatigue Increased frequency of urination Urinary frequency Urinary frequency Encounter for examination following a fall- Primary Severe Alzheimer's dementia without behavioral disturbance, psychotic disturbance, mood disturbance, or anxiety, unspecified timing of dementia onset ([facility]) documented [facility] this encounter [facility]* Diagnosis Left ureteral stone documented in this encounter [facility]* Diagnosis Left ureteral stone [facility] Attachments The following attachments cannot be sent through Care Everywhere. * Colitis (German) documented in this [facility] Work Phone: Hospital Discharge instructions Additional Instructions Use [id number] Lidoderm patches (4%) daily as well as incentive spirometer every hour while awake to help prevent a secondary pneumonia.[facility] Work Phone: Instructions* Attachments The following attachments cannot be sent through Care Everywhere. * Preventing Falls in Older Adults (German) [facility] Consultation (Routine) - Pending Review Specialty Diagnoses / Procedures Referred By Yang t Referred To Contact Geriatric Medicine Diagnoses Mixed Alzheimer's and vascular dementia (HCC) Procedures [place] OFFICE/OUTPATIENT [facility] 60 MINUTES Rubina Moore APRN - SENIOR HEALTH PHYSICS TECHNICIAN [address] [place] [address] [facility] [address] [place] [address] Referral ID Status Reason Start Date Expiration Date Visits Requested Visits Authorized [id number] Pending Review Specialty Services Required 06/22/2023 06/21/2024 [facility] Diagnostic Procedure Only (Urgent) - Closed Specialty Diagnoses / Procedures Referred By Contac t Referred To Contact XR IMAGING Diagnoses Rib injury Procedures XR RIBS/CHEST 3V AP RIB/OBLS/CXR RT X-RAY RIBS, CHEST 3+ VW Shraddha Menjivar APRN.SENIOR HEALTH PHYSICS TECHNICIAN [address] [place] [address] [place] [address] Referral ID Status Reason Start Date Expiration Date V isits Requested Visits Authorized [id number] Closed Auto-Generate d Referral 01/10/2021 02/09/2022 1 1 [facility] for referral (narrative)No reason for referral information [facility]WSt. [facility] Work Phone: Reason for visit Narrative* Diagnostic Procedure Only (Urgent) - Closed Specialty Diagnoses / Procedures Referred By Contac t Referred To Contact XR IMAGING Diagnoses Rib injury Procedures XR RIBS/CHEST 3V AP RIB/OBLS/CXR RT X-RAY RIBS, CHEST 3+ VW Shraddha Menjivar, FOOD SERVICE DRIVER.SENIOR HEALTH PHYSICS TECHNICIAN [address] [place] [address] [place] [address] Referral ID Status Reason Start Date Expiration Date V isits Requested Visits Authorized [id number] Closed Auto-Generate d Referral 01/10/2021 02/09/2022 1 1 [facility] for visit Narrative* Diagnostic Procedure Only (Routine) - Closed Specialty Diagnoses / Procedures Referred By Contac t Referred To Contact XR IMAGING Diagnoses Left ureteral stone Procedures XR ABDOMEN 1V SUPINE RADIOLOGIC EXAM ABDOMEN 1 VIEW Rey Rowan MD [address] [place] [address] Phone: tel: fax: [place] [address] Referral ID Status Reason Start Date Expiration Date V isits Requested Visits Authorized [id number] Closed Auto-Generate d Referral 10/09/2024 09/27/2025 1 1 [facility] for visit Narrative* Diagnostic Procedure Only (Routine) - Closed Specialty Diagnoses / Procedures Referred By Contac t Referred To Contact US IMAGING Diagnoses Left ureteral stone Procedures US KIDNEY/BLADDER US RETROPERITONEAL REAL TIME W/IMAGE COMPLETE Rey Rowan MD [address] [place] [address] Phone: tel: fax: [place] [address] Referral ID Status Reason Start Date Expiration Date V isits Requested Visits Authorized [id number] Closed Auto-Generate d Referral 10/09/2024 09/27/2025 1 1 [facility] Reason for Referral Status Reason Specialty Diagnoses / Procedures Referre d By Contact Referred To Contact Closed Radiology Diagnoses Memory loss Procedures CT Head WO Contrast Yeyo Jackson MD [address] [address] Assessments Diagnosis Memory loss Advance Directives No Advanced Directives Records FoundLatest Code Status on File Code Status Date Activated Date Inactivated Comments Full Code 10/21/2020 8:18 PM Advance Directive Response Recorded Date/ Time Advance Directives No March 3:30pm Living Will No April 27 12:52pm Power of Carbon Plant Grinder No April 27, 2022 12:52pm Advance Directive Response Recorded Date/ Time Advance Directives No March 4:30pm Date Activated Date Inactivated Comments 08/06/2024 6:27 PM 08/08/2024 8:32 PM Question Answer Comments DNR Order Discussed With: Surrogate Decision [facility] er Surrogate Decision Maker Name: Sukumar Gillis Surrogate Decision Maker Surrogate Decision Maker Relationship: Spouse Date Activated Date Inactivated Comments 08/06/2024 6:24 PM 08/06/2024 6:26 PM Question Answer Comments DNR Order Discussed With: Surrogate Decision [facility] er Date Activated Date Inactivated Comments 08/28/2024 12:44 PM 08/28/2024 6:53 PM Question Answer Comments Order Discussed With: Patient and Surrogate Deci kashif Maker Date Activated Date Inactivated Comments 08/06/2024 6:27 PM 08/08/2024 8:32 PM Question Answer Comments DNR Order Discussed With: Surrogate Decision [facility] er Surrogate Decision Maker Name: Sukumar Gillis Surrogate Decision Maker Surrogate Decision Maker Relationship: Spouse Date Activated Date Inactivated Comments 08/06/2024 6:24 PM 08/06/2024 6:26 PM Question Answer Comments DNR Order Discussed With: Surrogate Decision [facility] er Date Activated Date Inactivated Comments 08/28/2024 12:44 PM 08/28/2024 6:53 PM Question Answer Comments Order Discussed With: Patient and Surrogate Deci kashif Maker Date Activated Date Inactivated Comments 08/06/2024 6:27 PM 08/08/2024 8:32 PM Question Answer Comments DNR Order Discussed With: Surrogate Decision [facility] Surrogate Decision Maker Name: Sukumar Gillis Surrogate [...] Chief Complaint FALL Chief Complaint Admit Date SENIOR CARE LAB WORK May 12 5:00am SENIOR CARE LAB WORK June 12, 2024 6 :15am Chief Complaint Admit Date SENIOR CARE LAB WORK May 12 5:00am SENIOR CARE LAB WORK June 12, 2024 6 :15am SENIOR CARE LAB WORK August 04, 2024 4:00 am Additional Source Comments Reason for Visit (unrecogniz [...] Mixed Alzheimer's and vascular dementia (HCC) Procedures [place] OFFICE/OUTPATIENT NEW HIGH MDM 60 MINUTES Rubina Moore S, FOOD SERVICE DRIVER - SENIOR HEALTH PHYSICS TECHNICIAN [address] [facility] [place] [address] [place] [address] [facility] [address] [place] [address] Referral ID Status Reason Start Date Expiration Date V isits Requested Visits Authorized [id number] Closed Specialty Services Required 06/22/2023 06/21/2024 1 1 Reason Onset Date Comments Appointment 07/05/2023 New Patient Reason Comments Medication Check Hypertension Hyperlipidemia Anxiety Reason Onset Date Comments Advice Only 01/31/2024 Reason Comments Medicare Annual Wellness Visit Subsequmonisha t Health Maintenance Dexa- declines Zoste r- declines Tdap- declines Pna- declines Covid- not done Blood Work Reason Onset Date Comments Urinary Problem 06/12/2022 Reason Comments Other Ordered Prescriptions (unrec ognized section and content) [...] mL/hr, CONTINUOUS, Starting on Lisbeth 10/21/20 at 2017 2017 (Due) PRN Medication Order 10/19/2020 10/20/2020 10/21/2020 [...] g, Oral, DAILY PRN, Constipation, Starting on Sun10/21/202016, First line therapy for constipation sodium chloride [...] section and content) DATE CREATED AUTHOR 10/28/[address] [employer] [address] [facility] DATE CREATED AUTHOR AUTHOR'S ORGANIZ ATION 03/06/2023 [facility] DATE CREATED AUTHOR AUTHOR'S ORGANIZ ATION 08/28/2024 [facility] DATE CREATED AUTHOR AUTHOR'S ORGANIZ ATION 09/28/2024 [facility] [employer] [facility] DATE CREATED AUTHOR AUTHOR'S ORGANIZ ATION 10/29/2024 [facility] DATE CREATED AUTHOR AUTHOR'S ORGANIZ ATION 11/10/2024 [facility] Care Teams (unrecognized sec tion and content) Team Status: Active Member Role Status Dates Dr. Raeann Parsons MD Family Provider Active Dr. Raeann Parsons MD Primary Care Provider Active Team Status: Inactive Member Role Status Dates Dr. Raeann Parsons MD Primary Care Provider Active Dr. Chani Elkins DO Emergency Provider Active [employer] Operator Relationship Specialty Start Date End Date Carlos Herron MD [address] [facility] [place] [address] PCP - General 01/01/20 [employer] Operator Relationship Specialty Start Date End Date Carlos Herron MD [address] [facility] [place] [address] PCP - General 01/01/20 [employer] Operator Relationship Specialty Start Date End Date Carlos Herron MD [address] [facility] [place] [address] PCP - General 01/01/20 [employer] Print Operator Relationship Specialty Start Date End Date Carlos Herron MD [address] [facility] [place] [address] PCP - General 01/01/20 [employer] Print Operator Relationship Specialty Start Date End Date Carlos Herron MD [address] [facility] [place] [address] PCP - General 01/01/20 [employer] Relationship Specialty Start Date End Date Rubina Moore, FOOD SERVICE DRIVER - SENIOR HEALTH PHYSICS TECHNICIAN [address] [place] [address] PCP - General Nurse Practitioner Family 11/13/22 [employer] Print Operator Relationship Specialty Start Date End Date Carlos Herron MD [address] [facility] [place] [address] PCP - General Family Medicine 11/13/22 [employer]ia Print Operator Relationship Specialty Start Date End Date Carlos Herrno MD [address] [facility] [place] [address] PCP - General Family Medicine 11/13/22 [employer]ia Print Operator Relationship Specialty Start Date End Date Carlos Herron MD [facility] [place] [address] PCP - General Family Medicine 11/13/22 [employer]ia Print Operator Relationship Specialty Start Date End Date Carlos Herron [address] [place] [address] [place] [address] PCP - General Family Medicine 08/18/20 Neelam (Pharmacist)Kandice [address] [place] [address] Pharmacist Pharmacy 07/04/18 Christel Cerda [facility] [address] [place] [address] Pharmacist Pharmacy 08/15/18 [employer] Print Operator Relationship Specialty Start Date End Date Carlos Herron MD [facility] [place] [address] PCP - General Family Medicine 11/13/22 Am[employer]ia Print Operator Relationship Specialty Start Date End Date Carlos Herron MD [address] [place] [address] [place] [address] PCP - General Family Medicine 11/13/22 Am[employer]ia Print Operator Relationship Specialty Start Date End Date Carlos Herron MD [facility] [place] [address] PCP - General Family Medicine 11/13/22 Am[employer]ia Print Operator Relationship Specialty Start Date End Date Carlos Herron MD [address] [place] [address] [address] PCP - General Family Medicine 11/13/22 Am[employer]ia Print Operator Relationship Specialty Start Date End Date Carlos Herron MD [address] [facility] [place] [address] PCP - General Family Medicine 11/13/22 Am[employer]ia Print Operator Relationship Specialty Start Date End Date Carlos Herron MD [address] [facility] [place] [address] PCP - General Family Medicine 11/13/22 Ammonia Print Operator Relationship Specialty Start Date End Date Carlos Herron MD [address] [facility] [place] [address] PCP - General Family Medicine 11/13/22 Ammonia Print Operator Relationship Specialty Start Date End Date Carlos Herron MD [address] [facility] [place] [address] PCP - General Family Medicine 11/13/22 Ammonia Print Operator Relationship Specialty Start Date End Date Carlos Herron MD [address] [facility] [place] [address] PCP - General Family Medicine 11/13/22 Ammonia Print Operator Relationship Specialty Start Date End Date Carlos Herron MD [address] [facility] [place] [address] PCP - General Family Medicine 11/13/22 Ammonia Print Operator Relationship Specialty Start Date End Date Carlos Herron MD [address] [facility] [place] [address] PCP - General Family Medicine 11/13/22 Ammonia Print Operator Relationship Specialty Start Date End Date Carlos Herron [address] [facility] [place] [address] PCP - General Family Medicine 08/18/20 Kandice Richter [address] [place] [address] Pharmacist Pharmacy 07/04/18 Zaida, Christel [facility] [address] [place], [place] [address] Pharmacist Pharmacy 08/15/18 [employer]ia Print Operator Relationship Specialty Start Date End Date Carlos Herron MD [address] [facility] [place] [address] PCP - General Family Medicine 11/13/22 Am[employer]ia Print Operator Relationship Specialty Start Date End Date Carlos Herron MD [address] [facility] [place] [address] PCP - General Family Medicine 11/13/22 Ammonia Print Operator Relationship Specialty Start Date End Date Carlos Herron MD [address] [facility] [place] [address] PCP - General Family Medicine 11/13/22 Ammonia Print Operator Relationship Specialty Start Date End Date Carlos Herron MD [address] [facility] [place] [address] PCP - General Family Medicine 11/13/22 Ammonia Print Operator Relationship Specialty Start Date End Date Carlos Herron MD [address] [facility] [place] [address] PCP - General Family Medicine 11/13/22 Ammonia Print Operator Relationship Specialty Start Date End Date Carlos Herron MD [address] [place] [address] PCP - General Family Medicine 11/13/22 Am[employer]ia Print Operator Relationship Specialty Start Date End Date Carlos Herron MD [address] [place] [address] PCP - General 01/01/20 [employer]ia Print Operator Relationship Specialty Start Date End Date Carlos Herron MD [address] [place] [address] PCP - General 01/01/20 Team Status: Active [...] June 12, 2024 End: June 12, 2024 Am[employer]ia Print Operator Relationship Specialty Start Date End Date Carlos Herron [address] [place] [address], [place] [address] PCP - General Family Medicine 08/18/20 Kandice Richter [address] [place] [address] Pharmacist Pharmacy 07/04/18 Christel Cerda, [facility] [address] [place] [address] Pharmacist Pharmacy 08/15/18 Am[employer]ia Print Operator Relationship Specialty Start Date End Date Carlos Herron [address] [place] [address] PCP - General Family Medicine 08/18/20 Kandice Richter [address] [place] [address] Pharmacist Pharmacy 07/04/18 [facility] [address] [place] [address] Pharmacist Pharmacy 08/15/18 Team Status: Inactive Member Role Status Dates Dr. Carlos Herron MD Primary Care Provider Active Start: August 04, 2024 End: August 04, 2024 Demario RODRIGUEZ Attending Provider Active Star t: August 04, 2024 End: August 04, 2024 Demario RODRIGUEZ Referring Provider Active Star t: August 04, 2024 End: August 04, 2024 Am[employer]ia Print Operator Relationship Specialty Start Date End Date Carlos Herron MD [address] [place] [address] PCP - General Family Medicine 11/13/22 Am[employer]ia Print Operator Relationship Specialty Start Date End Date Carlos Herron [address] [place] [address] PCP - General Family Medicine 08/18/20 Kandice Richter [address] [place] [address] Pharmacist Pharmacy 07/04/18 [facility] [address] [place] [address] Pharmacist Pharmacy 08/15/18 Goals (unrecognized section and content) Goals may be documented in a n alternate sectionGoals may be documented in an alternate sectionGoals may be documented in an alternate section Source Comments (unrecognize d section and content) In the event this informatio n is protected by the Federal Confidentiality of Alcohol and Drug Abuse Patient Records regulations: The Federal rules restrict any use of the information to criminally investigate or prosecute any alcohol or drug abuse patient.[facility] CenterIn the event this information is protected by the Federal Confidentiality of Alcohol and Drug Abuse Patient Records regulations: The Federal rules restrict any use of the information to criminally investigate or prosecute any alcohol or drug abuse patient.[facility] CenterIn the event this information is protected by the Federal Confidentiality of Alcohol and Drug Abuse Patient Records regulations: The Federal rules restrict any use of the information to criminally investigate or prosecute any alcohol or drug abuse patient.[facility] CenterIn the event this information is protected by the Federal Confidentiality of Alcohol and Drug Abuse Patient Records regulations: The Federal rules restrict any use of the information to criminally investigate or prosecute any alcohol or drug abuse patient.[facility] CenterIn the event this information is protected by the [facility] Confidentiality of Alcohol and Drug Abuse Patient Records regulations: The Federal rules restrict any use of the information to criminally investigate or prosecute any alcohol or drug abuse patient.[facility] CenterIn the event this information is protected by the Federal Confidentiality of Alcohol and Drug Abuse Patient Records regulations: The Federal rules restrict any use of the information to criminally investigate or prosecute any alcohol or drug abuse patient.[facility] FOR RECORDS PERTAINING TO PATIENTS WHO ARE [...] BE BASED ON THE PRIMARY CLINICAL RECORDS. [facility] [employer] [facility]. provides no warranty or guarantee of the accuracy or completeness of information in this document.
[2024-12-24 08:24] LABS: Hematocrit 30.7 % (37-47); Hemoglobin 10.0 g/dL (12.0-15.0); Mean Corp Hgb Conc 32.6 g/dL (32-36); Mean Corpuscular Volume 91.4 fL (81-99); Mean Platelet Vol. 10.8 fl (6.2-12.0); Platelet Count 225 K/mm3 (150-450); RBC Distribution Width CV 12.2 % (11.6-14.6); RBC Distribution Width SD 40.4 fl (35.1-43.9); Red Blood Count 3.36 M/mm3 (4.2-5.4); White Blood Count 8.1 K/mm3 (4.4-11.0)
[2024-12-24 09:15] LABS: Anion Gap 15 (5-15); BUN 26 mg/dL (4-19); BUN/Creat Ratio 31.5 RATIO (10-20); Calcium,Total 9.7 mg/dL (7.6-11.0); Carbon Dioxide 23.0 mmol/L (21.0-32.0); Chloride 101 mmol/L (98-108); Glucose 122 mg/dL (70-99); Potassium 4.3 mmol/L (3.3-5.1)
== END ==
LOC: OLS.ACW400 05:00
PROVIDERS: PCP Family Medicine; Visit Provider Family Medicine
DX: E11.40 Type 2 diabetes mellitus with diabetic neuropathy, unspecified (principal); G30.8 Other Alzheimer's disease; R53.1 Weakness
CPT/HCPCS: 36415; 80048; 83036; 85027

== ENCOUNTER → 2025-01-12 04:00 | Outpatient (REF) | payer MEDICARE, SELFPAY ==
[2025-01-12 07:49] LABS: Hematocrit 31.3 % (37-47); Hemoglobin 10.0 g/dL (12.0-15.0); Mean Corp Hgb Conc 31.9 g/dL (32-36); Mean Corpuscular Volume 91.8 fL (81-99); Mean Platelet Vol. 10.6 fl (6.2-12.0); Platelet Count 214 K/mm3 (150-450); RBC Distribution Width CV 12.6 % (11.6-14.6); RBC Distribution Width SD 41.5 fl (35.1-43.9); Red Blood Count 3.41 M/mm3 (4.2-5.4); White Blood Count 5.9 K/mm3 (4.4-11.0)
[2025-01-12 08:10] LABS: AST(SGOT) 14 U/L (<=31); Alanine Aminotransfer ALT/SGPT 7 U/L (<=34); Albumin, Serum 3.7 g/dL (3.4-4.8); Alkaline Phosphatase 78 U/L (35-104); Anion Gap 9 (5-15); BUN 32 mg/dL (4-19); BUN/Creat Ratio 35.3 RATIO (10-20); Calcium,Total 10.0 mg/dL (7.6-11.0); Carbon Dioxide 29.5 mmol/L (21.0-32.0); Chloride 99 mmol/L (98-108); Cholesterol 223 mg/dL (<=200); Globulin 3.2 g/dL (2.2-4.2); Glucose 154 mg/dL (70-99); Low Density Lipoprotein Calc. 151 mg/dL; Potassium 4.4 mmol/L (3.3-5.1); Triglycerides 162 mg/dL; Very Low Density Lipoprotein 32 mg/dL (5-40); cholesterol:hdl ratio screen 5.59
== END ==
LOC: OLS.ACW400 04:00
PROVIDERS: PCP Family Medicine; Referring Provider Family Medicine; Visit Provider Family Medicine
DX: G30.8 Other Alzheimer's disease (principal); E11.40 Type 2 diabetes mellitus with diabetic neuropathy, unspecified; E78.5 Hyperlipidemia, unspecified; I25.10 Atherosclerotic heart disease of native coronary artery without angina pectoris
CPT/HCPCS: 36415; 80053; 80061; 83036; 84443; 85027